=== PATIENT | female | born 1985 | race Caucasian/White ===

== ENCOUNTER 2025-03-12 06:14 | Day surgery (SDC) | payer OTHER, SELFPAY ==
--- NOTE | 2025-03-06 12:01 | PAT.ANE_ITS ---
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 When Was Last Pacemaker Check QUESTION #4 FULL TEXT: You/Your Family Experience fever (hyperthermia) with Anesthesia Last Oral Intake Last Oral intake: Last Oral Intake NPO since Meds taken in AM with sips of water? Meds patient instructed to take am of surgery PONV PONV - sidewalk repairer: PONV - sidewalk repairer Female Yes 03/05/25 15:11 HX of Motion Sickness No 03/05/25 15:11 HX of N/V After Surgery No 03/05/25 15:11 Non-Smoker Yes 03/05/25 15:11 Duration of Surgery greater No 03/05/25 15:11 than 60 minutes Number of Risk Factors 2 03/05/25 15:11 PONV Score Moderate Risk 03/05/25 15:11 Respiratory Assessment Respiratory Assessment - sidewalk repairer: Respiratory Tract Infection Hx - sidewalk repairer Hx Respiratory Tract Infection No 03/05/25 15:11 STOP Sleep Apnea STOP Sleep Apnea - sidewalk repairer: STOP Sleep Apnea - sidewalk repairer Hx Hypertension No 03/05/25 15:11 Hx Sleep Apnea No 03/05/25 15:11 CPAP BIPAP Do you snore loudly (louder No 03/05/25 15:11 than talking or can be heard Do you often feel tired/ No 03/05/25 15:11 fatigued/ sleepy during daytime? Has anyone observed you stop No 03/05/25 15:11 breathing during sleep? STOP Results Negative 03/05/25 15:11 QUESTION #5 FULL TEXT : Do you snore loudly (louder than talking or can be heard through closed doors)? Tobacco Use History Tobacco Use History - sidewalk repairer: Tobacco Use History - sidewalk repairer Tobacco Use Smoking Status Never smoker 03/05/25 15:11 Hx Tobacco Use No 03/05/25 15:11 Years Smoking Packs Smoked per Day Smoking Cessation Date was within the last 15 years Hx Smoking Cessation Date Hx Smoking Cessation Counseling Hematologic Medial History Hematologic Hx - sidewalk repairer: Hematologic Medical Hx - rn clinical documentation Hx of Blood Transfusion No 03/05/25 15:11 Hx of Transfusion in last 3 No 03/05/25 15:11 Months Date of Last Transfusion (if within last 3 months) Ever experience any problems No 03/05/25 15:11 with transfusion(s)? Specify any problems Hx of Preganancy in last 3 No 03/05/25 15:11 Months Nurse Filling Out Transfusion DSCHRIBER 03/05/25 15:11 & Questions: Date: 03/05/25 03/05/25 15:11 Time: 15:12 03/05/25 15:11 Patient unable to answer at this time (ie. confused, unrespo /Reproduction History /Reproductive History - sidewalk repairer: /Reproductive Hx- sidewalk repairer Hx Now No 03/05/25 15:11 Gestational Age (in weeks): EDC: Hx Hx Para Hx Section SAB No 03/05/25 15:11 PFSH Medical History (Updated 03/05/25 @ 15:17 by Molly Villagran) Wears contact lenses Back pain Migraine headache History of diverticulitis Non-smoker Cardiology follow-up encounter History of echocardiogram Home Medications Medication Instructions Recorded Last Taken Type multivitamin (Daily Multi-Vitamin 1 tab PO DAILY 03/05 Unknown History tablet) ubrogepant 100 mg tablet (Ubrelvy) 100 mg PO DAILY PRN PRN migraine 03/05/25 Unknown History headache Allergy/AdvReac Type Severity Reaction Status Date / Time cefuroxime (From Ceftin) Allergy Intermediate Vomiting Verified 03/05/25 15:08 Penicillins Allergy Intermediate Hives Verified 03/05/25 15:08 red dye AdvReac Intermediate Vomiting Verified 03/05/25 15:08 Surgical History (Updated 03/05/25 @ 15:17 by Molly Villagran) Hx of colonoscopy History of tonsillectomy History of Social History Smoking Status: Never smoker Recommendation Anesthesia Recommendation Anesthesia recommendation: OPTIMIZED for anesthesia
[2025-03-12] VITALS (9 sets, daily range): BP systolic 83–106; BP diastolic 54–67; PULSE 70–83; RESP 14–18; TEMP 36.1–36.7; O2SAT 93–100; BMI 33.1
--- OUTSIDE RECORDS SUMMARY | 2025-03-12 06:21 | XMS RPT_ITS | CCD ---
Author Organization [facility] Care Team Providers Care Cellophane Bath Mixer Name Role Phone Frantz Benson DO Primary Care Provider Deepika Denise MD Unavailable JERRI POSADA Attending Unavailable NO PRIMARY CAREMD Primary Care Unavailable REFERRED, SELF Referring Unavailable NO PRIMARY CARE, Primary Care Unavailable TRISTEN SHRESTHA Attending Unavailable REFERRED, SELF Referring Unavailable Frantz Benson DO Primary Care Provider Deepika Denise MD Unavailable Alejandro Denise MDico Unavailable [phone] NEDDJeannie ORTHODONTIST-TREMAINE EVANS Attending Unavaila ble FRANTZ BENSON DO Primary Care Unavailable FRANTZ BENSON DO Primary Care Unavailable MICHAEL SHER Attending Unavailable FRANTZ BENSON DO Primary Care Unavailable BENACHE MICHAEL Attending Unavailable Howie CASTANO [place] Unavailable Unavailable Howie CASTANO [place] Unavailable Frantz Benson DO Primary Care Provider Josef ORTHODONTIST.Fariba EVANS Unavailable Yaima SMITH.Anastasiya EVANS Unavailable FRANTZ BENSON DO Primary Care Physician OBIE JONES Attending Unavailable Josef ORTHODONTIST.Fariba EVANS Unavailable Marlyn ORTHODONTIST.Fermin EVANS Unavailable FRANTZ BENSON Primary Care Unavailable FRANTZ BENSON Primary Care Unavailable FARIDEH DE LA TORRE Referring Unavailable BENSON, FRANTZ L Primary Care Unavailable BENSON, FRANTZ L Primary Care Unavailable TANTIBHEDHYANGKUL, JULIERUT Referring Unav ailable BENSON, FRANTZ L Primary Care Unavailable TANTIBHEDHYANGKUL, JULIERUT Referring Unav ailable BENSON, FRANTZ L Primary Care Unavailable ATTARAN, MELINDA Referring Unavailable BENSON, FRANTZ L Primary Care Unavailable BENSON, FRANTZ L Primary Care Unavailable ATTARAN, MELINDA Referring Unavailable BENSON, FRANTZ L Primary Care Unavailable VENESSA QUEZADA MD Attending Unavailable BENSON DO, FRANTZ Primary Care Unavailable BENSON DO, FRANTZ Primary Care Unavailable MICHAEL SHER MD Attending Unavailab JOSE EDUARDO Stewart MD Attending Unavailable BENSON DO, FRANTZ Primary Care Unavailable Daniel Jefferson RN Unavailable Unavailable BENSON DO, FRANTZ Primary Care Unavailable MICHAEL SHER MD Attending Unavailab MICHAEL Graham MD Attending Unavailab le BENSON DO, FRANTZ Primary Care Unavailable CEDRICK LAURA Attending Unavailable Benson, Frantz Primary Care Unavailable Wiswell Aniya Referring Unavailable Wiswell, Aniya Attending Unavailable WISWELL, ANIYA Attending Unavailable BENSON, FRANTZ L Primary Care Unavailable TANTIBHEDHYANGKUL, JULIERUT Attending Unav ailable BENSON, FRANTZ L Primary Care Unavailable BENSON, FRANTZ L Primary Care Unavailable BENSON, FRANTZ L Attending Unavailable SELF Referring Unavailable TANTIBHEDHYANGKUL, JULIERUT Referring Unav ailable BENSON, FRANTZ L Primary Care Unavailable BENSON, FRANTZ L Primary Care Unavailable TANTIBHEDHYANGKUL, JULIERUT Referring Unav ailable BENSON, FRANTZ L Primary Care Unavailable BENSON, FRANTZ L Attending Unavailable BENSON, FRANTZ L Primary Care Unavailable ATTARAN, MELINDA Attending Unavailable TANTIBHEDHYANGKUL, JULIERUT Referring Unav ailable BENSON, FRANTZ L Primary Care Unavailable TANTIBHEDHYANGKUL, JULIERUT Referring Unav ailable BENSON, FRANTZ L Primary Care Unavailable ATTARAN, MELINDA Attending Unavailable DUNCAN GUADALUPE Attending Unavailable BENSON, FRANTZ L Primary Care Unavailable TANTIBHEDHYANGKUL, JULIERUT Referring Unav ailable BENSON, FRANTZ L Primary Care Unavailable DEVON OSMAN Attending Unavailable BENSON, FRANTZ L Primary Care Unavailable SELF Referring Unavailable BENSON, FRANTZ L Primary Care Unavailable BENSON, FRANTZ L Referring Unavailable MICHELLE MENSAH Attending Unavailable BENSON, FRANTZ L Primary Care Unavailable BENSON, FRANTZ L Referring Unavailable ALFREDO LONGO Attending Unavailable BENSON, FRANTZ L Attending Unavailable BENSON, FRANTZ L Primary Care Unavailable TANTIBHEDHYANGKUL, JULIERUT Referring Unav ailable BENSON, FRANTZ L Primary Care Unavailable BENSON, FRANTZ L Referring Unavailable BENSON, FRANTZ L Primary Care Unavailable BENSON, FRANTZ L Primary Care Unavailable FERMIN FIELD Attending Unavailable TANTIBHEDHYANGKUL, JULIERUT Referring Unav ailable MAREK NIXON Attending Unavailable BENSON, FRANTZ L Primary Care Unavailable CATARINA MANZO Attending Unavailable BENSON, FRANTZ L Primary Care Unavailable TANTIBHEDHYANGKUL, JULIERUT Referring Unav ailable BENSON, FRNATZ L Primary Care Unavailable BENSON, FRANTZ L Primary Care Unavailable MELINDA GUIDRY Attending Unavailable MELINDA GUIDRY Admitting Unavailable FARIDEH DE LA TORRE Referring Unavailable BENSON, FRANTZ L Primary Care Unavailable TANTIBHEDHYANGKUL, JULIERUT Referring Unav ailable BENSON, FRANTZ L Primary Care Unavailable TANTIBHEDHYANGKUL, JULIERUT Referring Unav ailable BENSON, FRANTZ L Primary Care Unavailable TANTIBHEDHYANGKUL, JULIERUT Attending Unav ailable BENSON, FRANTZ L Primary Care Unavailable BENSON, FRANTZ L Primary Care Unavailable BENSON, FRANTZ L Attending Unavailable TANTIBHEDHYANGKUL, JULIERUT Referring Unav ailable BENSON, FRANTZ L Primary Care Unavailable TANJA ABAD Attending Unavailable TANTIBHEDHYANGKUL, JULIERUT Referring Unav ailable BENSON, FRANTZ L Primary Care Unavailable Allergies Allergy Classification Reported Allergen(s) Allergy Type Date of Onset Reaction(s) Facility (20 sources) Acetaminophen / Dextromethorphan / Pseudoephedrine; Translations: [APAP/dextromethorphan /pseudoephedrine] Drug Allergy 03-30-20 21 Other: See [facility] (20 sources) Amoxicillin; Translations: [amoxicillin] Drug Allergy 12-19-19 15 Rash, Hives [facility] Work Phone: (20 sources) Cefuroxime; Translations: [CEFUROXIME AXETIL] Drug Allergy 12-19-19 15 GI Upset [facility] Work Phone: (20 sources) Chlorpheniramine / Phenylephrine / Phenylpropanolamine / phenyltoloxamine; Translations: [Chlorpheniramine / Phenylephrine / Phenylpropanolamine / phenyltoloxamine] Drug Allergy 03-30-20 Other: See Comments [facility] (20 sources) Contrast media; Translations: [RED DYE] Drug Allergy 03-30-20 Other: See Comments, [facility] (20 sources) Erythromycin; Translations: [ILOSONE] Drug Allergy 12-19-19 15 Rash [facility] Work Phone: (20 sources) Penicillin; Translations: [penicillin] Drug Allergy 12-19-19 15 Rash, [facility] Work Phone: (20 sources) Phenylephrine; Translations: [phenylephrine] Drug Allergy 03-30-20 Other: See Comments, Unknown [facility] (20 sources) Pseudoephedrine; Translations: [pseudoephedrine] Drug Allergy 03-30-20 Other: See Comments, Unknown [facility] (3 sources) Cefuroxime; Translations: [cefuroxime] Drug Allergy 12-19-19 15 [facility] Immediate [facility] (4 sources) Erythromycin; Translations: [erythromycin] Drug Allergy 12-19-19 15 [facility] (1 source) ALLERGIES NOT ON FILE; Translations: [ALLERGIES NOT ON FILE] Propensity to adverse reactions (disorder) [facility] Repository (2 sources) Chlorphen-Phenyltolox- Pe-Ppa; Translations: [CHLORPHEN-PHENYLTOLOX -PE-PPA] Drug Allergy 03-30-20 Unknown [facility] Work Phone: (1 source) Cefuroxime Drug Allergy 03-05-20 25 [facility] Repository (1 source) Penicillins Drug allergy (disorder) 03-05-20 25 [facility] Repository Medications Current Medications Medication Drug Class(es) Dates Sig (Normalized) Sig (Original) ALPRAZolam 0.25 mg oral tablet (2 sources) Benzodiazepine Start: 10-30-2023 End: 11-29-2023 take 1 tablet by mouth every twenty-four hours as needed for anxiety and anxiety ALPRAZolam (XANAX) 0.25 mg tablet Indications: Situational anxiety Take 1 tablet by mouth at bedtime as needed for up to 30 days. 30 tablet 1 10/30/2023 11/29/2023 Active cephalexin 500 mg oral capsule (1 source) Cephalosporin Antibacterial Start: 03-12-2023 End: 03-22-2023 take 1 capsule by mouth twice daily cephALEXin (KEFLEX) 500 mg capsule Indications: Sore throat , Exposure to strep throat Take 1 capsule by mouth two times a day for 10 days. 20 capsule 0 03/12/2023 03/22/2023 Active Comment on above: Take 1 capsule by [facility] two times a day for 10 days. chorionic gonadotropin 42266 unt/ml injectable solution (20 sources) Gonadotropin Start: 01-23-2025 inject 66872 [IU] by subcutaneous injection once chorionic gonadotropin (PREGNYL) 10,000 unit solr Inject 10,000 units once for HCG Trigger. Mix vials as directed per nursing in office. Administer subcutaneous. 1 each 01/23/2025 Active Start: 10-29-2024 inject [id number] [IU] by subcutaneous injection once chorionic gonadotropin (PREGNYL) 10,000 unit solr 10,000 Units as directed for 1 dose. Mix vials as directed per nursing in office. Administer subcutaneous. 1 each 1 10/29/2024 Active Start: 09-28-2023 End: 09-28-2023 Choriogonadotropin Nikos,HumR ec (OVIDREL) 250 mcg/0.5 mL syrg Inject 250 mcg subcutaneously one time only for 1 dose. 1 Each 2 09/28/2023 09/28/2023 Start: 08-06-2023 End: 08-06-2023 Choriogonadotropin Nikos,HumR ec (OVIDREL) 250 mcg/0.5 mL syrg Inject 250 mcg subcutaneously one time only for 1 dose. 1 Each 2 08/06/2023 08/06/2023 Comment on above: Inject 250 mcg subcu taneously one time only for 1 dose. ciprofloxacin 3 mg/ml ophthalmic solution (3 sources) Quinolone Antimicrobial Start: End: take 1-2 drop(s) into the eye(s) every two hours, then take 1-2 drop(s) into the eye(s) every four hours ciprofloxacin HCl (CILOXAN) 0.3 % ophthalmic solution Indications: Acute bacterial conjunctivitis of left eye Use 1-2 drops inside left lower eyelid(s) every 2 hours while awake for 2 days, then 1-2 drops every 4 hours for next 5 days. 5 mL 0 05/20/2022 05/27/2022 Active Comment on above: Use 1-2 drops inside left lower eyelid(s) every 2 hours while awake for 2 days, then 1-2 drops every 4 hours for next 5 days. doxycycline hyclate 100 mg oral capsule (5 sources) Tetracycline-class Drug Start: End: take 2 capsules by mouth once doxycycline hyclate (VIBRAMYCIN) 100 mg capsule Take 2 capsules by mouth one time only for 1 dose. Take between 8pm and 10pm the night before retrieval 2 capsule 11/23/2024 11/23/2024 Active Start: 03-30-2023 End: 04-06-2023 take 1 tablet by mouth twice daily doxycycline (VIBRA-TABS) 100 mg tablet Indications: Acute non-recurrent maxillary sinusitis Take 1 tablet by mouth two times a day for 7 days. 14 tablet 0 03/30/2023 04/06/2023 Start: 03-17-2022 End: 03-27-2022 take 1 tablet by mouth twice daily doxycycline monohydrate 100 mg tablet Indications: Bacterial sinusitis Take 1 tablet by mouth twice daily for 10 days. 20 tablet 0 03/17/2022 03/27/2022 Active Comment on above: Take 1 tablet by jeferson th twice daily for 10 days. Take 1 tablet by jeferson th two times a day for 7 days. 0.36 ml follitropin beta 833 unt/ml cartridge (12 sources) Start: 025 inject 250 [IU] by subcutaneous injection once daily Follitropin Beta (FOLLISTIM AQ) 300 unit/0.36 mL Indications: Female infertility Inject 250 Units subcutaneously once daily. 6 each 1 10/29/2024 Active 0.5 ml ganirelix acetate 0.5 mg/ml prefilled syringe (12 sources) Gonadotropin Releasing Hormone Antagonist Start: Ganirelix Acetate 250 mcg/0.5 mL Indications: Female infertility Inject 1 syringe daily subcutaneous before 8am. Inject same time each day 7 each 1 10/29/2024 Active leuprolide acetate 5 mg/ml injectable solution (13 sources) Gonadotropin Releasing Hormone Receptor Agonist Start: 025 leuprolide (Lupron) 1 mg/0.2 mL injection 11/14/2024 Active Start: 10-29-2024 inject 80 [IU] by souza bcutaneous injection once leuprolide (LUPRON) 1 mg/0.2 mL Indications: Female infertility Inject 80 units subcutaneous once as directed for Lupron trigger 1 kit 1 10/29/2024 Active nitrofurantoin, macrocrystals 25 mg / nitrofurantoin, monohydrate 75 mg oral capsule (2 sources) Nitrofuran Antibacterial Start: 05-01-2022 End: 05-06-2022 take 1 capsule by mouth twice daily nitrofurantoin monohydrate and macrocrystal (MACROBID) 100 mg capsule Take 1 capsule by mouth twice daily for 5 days. 10 capsule 0 05/01/2022 05/06/2022 Active Comment on above: Take 1 capsule by [facility] twice daily for 5 days. progesterone 200 mg oral capsule (6 sources) Progesterone Start: 01-23-2025 progesterone micronized (PROMETRIUM) 200 mg capsule Insert 200mg vaginally in AM and 200mg vaginally in PM 60 capsule 3 01/23/2025 Active sulfamethoxazole 800 mg / trimethoprim 160 mg oral tablet (2 sources) Dihydrofolate Reductase Inhibitor Antibacterial, Sulfonamide Antimicrobial Start: 07-19-2022 End: 07-22-2022 take 1 tablet by mouth twice daily sulfamethoxazole-tr imethoprim (BACTRIM DS) 800-160 mg per tablet Indications: Headache, unspecified headache type , Congestion of both ears , Recurrent sinusitis Take 1 tablet by mouth twice daily for 3 days. 6 tablet 0 07/19/2022 07/22/2022 Active Start: 05-24-2022 End: 06-03-2022 take 1 tablet by mouth twice daily sulfamethoxazole-trimethoprim (BACTRIM D S) 800-160 mg per tablet Take 1 tablet by mouth twice daily for 10 days. 20 tablet 0 05/24/2022 06/03/2022 Active Comment on above: Take 1 tablet by jeferson th twice daily for 10 days. Take 1 tablet by jeferson th twice daily for 3 days. Imitrex (1 source) Serotonin-1b and Serotonin-1d Receptor Agonist Start: 03-21-2021 Imitrex Once, PRN Headache, 0 Refill(s) Start Date: 03/21/21 Status: Ordered Repeat number: 1 Syringe with Needle, Disp, (BD LUER-AGUSTIN SYRINGE) (6 sources) Start: 01-23-2025 Syringe with Needle, Disp, (BD LUER-AGUSTIN SYRINGE) To be used to draw up HCG trigger 1 each 3 01/23/2025 Active topiramate 25 mg oral tablet (9 sources) Start: 01-20-2025 take 32-32.9 tablets by mouth twice daily topiramate (TOPAMAX) 25 mg tablet Indications: Class 1 obesity with body mass index (BMI) of 32.0 to 32.9 in adult, unspecified obesity type, unspecified whether serious comorbidity present Take 1 tablet by mouth two times a day. 60 tablet 5 01/20/2025 Active ubrogepant 100 mg oral tablet (20 sources) Start: 04-24-2023 End: 06-30-2024 take 1 tablet by mouth every two hours as needed ubrogepant (UBRELVY) 100 mg tablet Take 1 tablet by mouth as needed at onset of migraine. May repeat dose at 2 hours if needed. Max 200 mg per 24 hours. 16 tablet 5 01/16/2025 8:04 AM EDT 06/30/2024 Active Start: 06-01-2021 End: 04-05-2023 ubrogepant (UBRELVY) 100 mg tablet Take 1 tab as needed at onset of migraine. May repeat dose at 2 hours if needed. Max 200 mg per 24 hours. 10 tablet 5 02/21/2023 04/05/2023 Discontinued Comment on above: Take 1 tab as needed at onset of migraine. May repeat dose at 2 hours if needed. Max 200 mg per 24 hours. Completed/Discontinued Medications Medication Drug Class(es) Dates Sig (Normalized) Sig (Original) acetaminophen 300 mg / butalbital 50 mg / caffeine 40 mg oral capsule (1 source) Barbiturate, Central Nervous System Stimulant, Methylxanthine Start: 04-11-2021 End: 06-01-2021 take 1 capsule by mouth every six hours as needed acetaminophen 300 mg-caffeine 40 mg-butalbital 50 mg (FIORICET) per capsule Take 1 capsule by mouth every 6 hours as needed for headache. 30 capsule 1 04/11/2021 06/01/2021 Discontinued Comment on above: Take 1 capsule by mo uth every 6 hours as needed for headache. azithromycin 250 mg oral tablet (6 sources) Macrolide Antimicrobial Start: 08-15-2023 End: 08-20-2023 azithromycin (ZITHROMAX Z-BO) 250 mg tablet Indications: Acute non-recurrent pansinusitis Take 2 tablets day one, then, 1 tablet daily until gone. 6 tablet 0 08/15/2023 08/20/2023 Start: 06-30-2022 End: 07-05-2022 azithromycin (ZITHROMAX Z-PA K) 250 mg tablet Indications: Sore throat Take 2 tablets day one, then, 1 tablet daily until gone. 6 tablet 0 06/30/2022 07/05/2022 Active Start: 05-20-2022 End: 05-25-2022 take 2 tablets by mouth once daily, then take 1 tablet by mouth once daily azithromycin (ZITHROMAX) 250 mg tablet Indications: Acute otitis media, left Take 2 tablets by mouth once daily for 1 day, THEN 1 tablet once daily for 4 days. 6 tablet 0 05/20/2022 05/25/2022 Active Start: 05-05-2022 End: 05-10-2022 azithromycin (ZITHROMAX Z-PA K) 250 mg tablet Take 2 tablets day one, then, 1 tablet daily until gone. 6 tablet 0 05/05/2022 05/10/2022 Active Comment on above: Take 2 tablets day o ne, then, 1 tablet daily until gone. Take 2 tablets by mo uth once daily for 1 day, THEN 1 tablet once daily for 4 days. escitalopram 5 mg oral tablet (7 sources) Serotonin Reuptake Inhibitor Start: 2023 End: 2023 take 1 tablet by mouth once daily escitalopram oxalate (LEXAPRO) 5 mg tablet Indications: Situational anxiety Take 1 tablet by mouth once daily. 30 tablet 2 10/30/2023 03/15/2024 Discontinued fluticasone propionate 0.05 mg/actuat metered dose nasal spray (2 sources) Corticosteroid Start: 2021 End: 2022 take 2 spray(s) by mouth once daily fluticasone (FLONASE) 50 mcg/actuation nasal spray Indications: Headache, unspecified headache type , Congestion of both ears Use 2 Sprays in each nostril once daily. Rinse mouth after use. 16 g 0 05/03/2022 05/20/2022 Discontinued (Course of therapy completed) Comment on above: Use 2 Sprays in each nostril once daily. Rinse mouth after use. iv contrast (will be provided with radiology test) (2 sources) Start: 2022 End: 2022 inject 1 dose intravenously once, then inject 1 dose intravenously once iv contrast (will be provided with radiology test) Inject 1 Each intravenously one time only for [address] Neck W IVCON No IV access, insert saline lock prior to the sedation, infusion, injection for imaging exam. Discontinue saline lock post exam. If Pt. has a central line or IVAD, may access for administration according to line specific nursing protocol. Once exam is complete flush line and de-access according to line specific nursing protocol in the CT contrast administration guidelines link. 1 Each 0 04/06/2023 04/06/2023 Start: 04-06-2023 End: 04-06-2023 inject 1 dose intravenously once, then inject 1 dose intravenously once iv contrast (will be provided with radiology test) Inject 1 Each intravenously one time only for [address] Neck W IVCON No IV access, insert saline lock prior to the sedation, infusion, injection for imaging exam. Discontinue saline lock post exam. If Pt. has a central line or IVAD, may access for administration according to line specific nursing protocol. Once exam is complete flush line and de-access according to line specific nursing protocol in the CT contrast administration guidelines link. 1 Each 0 04/06/2023 04/06/2023 Active Comment on above: Inject 1 Each intrav enously one time only for [address] Neck W IVCON No IV access, insert saline lock prior to the sedation, infusion, injection for imaging exam. Discontinue saline lock post exam. If Pt. has a central line or IVAD, may access for administration according to line specific nursing protocol. Once exam is complete flush line and de-access according to line specific nursing protocol in the CT contrast administration guidelines link. letrozole 2.5 mg oral tablet (20 sources) Aromatase Inhibitor Start: End: letrozole (FEMARA) 2.5 mg tablet Take 1 tablet by mouth once daily. on cycle days 3-7 15 tablet 09/28/2023 09/03/2024 Discontinued Comment on above: Take 1 tablet by jeferson once daily. on cycle days 3-7 meloxicam 15 mg oral tablet (2 sources) Nonsteroidal Anti-inflammatory Drug Start: End: take 1 tablet by mouth once daily for pain meloxicam (MOBIC) 15 mg tablet Indications: Chronic midline low back pain without sciatica Take 1 tablet by mouth once daily. For low back pain, With food. 30 tablet 0 07/11/2021 08/10/2021 Discontinued Comment on above: Take 1 tablet by jeferson once daily. For low back pain, With food. metFORMIN hydrochloride 500 mg oral tablet (19 sources) Biguanide Start: End: take 1 tablet by mouth once daily at dinner metFORMIN (GLUCOPHAGE) 500 mg tablet Take 1 tablet by mouth daily with dinner. 90 tablet 1 09/09/2024 11/18/2024 Discontinued naproxen 500 mg oral tablet (20 sources) Nonsteroidal Anti-inflammatory Drug Start: End: naproxen (NAPROSYN) 500 mg tablet Take 1 tablet two times per day (with meals) for 5-7 days for menstrual migraine. 20 tablet 5 02/21/2023 03/15/2024 Discontinued Comment on above: Take 1 tablet two ti mes per day (with meals) for 5-7 days for menstrual migraine. ondansetron 4 mg disintegrating oral tablet (3 sources) Serotonin-3 Receptor Antagonist Start: End: take 1 tablet by mouth every eight hours as needed ondansetron orally disintegrating (ZOFRAN ODT) 4 mg disintegrating tablet Take 1 tablet by mouth every 8 hours as needed for nausea/vomiting. 20 tablet 0 06/15/2021 08/10/2021 Discontinued Comment on above: Take 1 tablet by jeferson every 8 hours as needed for nausea/vomiting. perflutren lipid microspheres 1.3 mL in NaCl (PF) 0.9% 10 mL injection (DEFINITY) (1 source) Start: End: perflutren lipid microspheres 1.3 mL in NaCl (PF) 0.9% 10 mL injection (DEFINITY) phentermine hydrochloride 37.5 mg oral capsule (9 sources) Sympathomimetic Amine Anorectic Start: End: take 33-33.9 capsules by mouth once daily Phentermine HCl 37.5 mg capsule Indications: Class 1 obesity without serious comorbidity with body mass index (BMI) of 33.0 to 33.9 in adult, unspecified obesity type Take 1 capsule by mouth once daily for 90 days. 30 capsule 2 10/17/2024 11/18/2024 Discontinued PNV Combo No.47-Iron-FA #1-DHA (PNV-DHA) 27 mg iron-1 mg -300 mg (4 sources) Start: take 1 capsule by mouth once daily PNV Combo No.47-Iron-FA #1-DHA (PNV-DHA) 27 mg iron-1 mg -300 mg Take 1 capsule by mouth once daily. 0 03/09/2023 Active Comment on above: Take 1 capsule by mo [facility] once daily. predniSONE 20 mg oral tablet (1 source) Start: End: take 1 tablet by mouth once daily as needed for headache predniSONE (DELTASONE) 20 mg tablet Take 1 tablet by mouth once daily. As needed for migraine headache 20 tablet 1 05/11/2021 06/01/2021 Discontinued Comment on above: Take 1 tablet by jeferson once daily. As needed for migraine headache rimegepant 75 mg disintegrating oral tablet (6 sources) Start: End: take 1 tablet by mouth every twenty-four hours rimegepant (NURTEC ODT) 75 mg disintegrating tablet Take 1 dissolvable tablet by mouth at migraine onset. Take only 1 tablet per 24 hours. 8 tablet 5 04/05/2023 04/24/2023 Discontinued Comment on above: Take 1 dissolvable t ablet by mouth at migraine onset. Take only 1 tablet per 24 hours. 125 ml sodium chloride 9 mg/ml prefilled syringe (1 source) Start: End: sodium chloride 0.9 % (flush) 10 mL (BD POSIFLUSH) sodium fluoride 0.011 mg/mg toothpaste (20 sources) Start: End: Sodium Fluoride (PREVIDENT 5000 ORTHO DEFENSE) 1.1 % 1 Application by DENTAL route once daily. Dx: dental caries 112 g 4 07/21/2023 03/15/2024 Discontinued Comment on above: 1 Application by DEN AISHA route once daily. Dx: dental caries Problems Active Problems Problem Classification Problem Date Documented Date Episodic/Chronic Administrative/soci al admission (2 sources) Treatment plan given; Translations: [Counseling, unspecified] 07-17-2023 Episodic Allergic reactions (1 source) Allergy to penicillin; Translations: [Allergy status to penicillin] Episodic Anxiety disorders (20 sources) Anxiety; Translations: [Other specified anxiety disorders] Onset: 4 Resolved: 5 10-30-2023 Chronic Coagulation and hemorrhagic disorders (20 sources) Heterozygous Factor V Leiden mutation; Translations: [Activated protein C resistance] Onset: 5 12-04-2016 Chronic Complications of surgical procedures or medical care (1 source) Non dose-related adverse reaction to medication; Translations: [Unspecified adverse effect of drug or medicament, initial encounter] 08-01-2023 Episodic Disorders of lipid metabolism (20 sources) Mixed hypercholesterolemia and hypertriglyceridemia; Translations: [Mixed hyperlipidemia] Onset: 6 12-04-2016 Chronic Disorders of teeth and jaw (1 source) Dental caries; Translations: [Dental caries, unspecified] 07-21-2023 Episodic Female infertility (18 sources) Female infertility; Translations: [Female infertility, unspecified] Onset: 5 08-20-2023 Chronic Fluid and electrolyte disorders (1 source) Hypokalemia; Translations: [Hypokalemia] Episodic Genitourinary symptoms and ill-defined conditions (1 source) Increased frequency of urination; Translations: [Frequency of micturition] Episodic Headache; including migraine (20 sources) Refractory migraine; Translations: [Migraine, unspecified, intractable, without status migrainosus] Onset: 6 05-10-2016 Chronic Headache; including migraine (13 sources) Headache; Translations: [Headache, unspecified headache type] Onset: 5 Episodic Headache; including migraine (1 source) Headache; including migraine; Translations: [Chronic nonintractable headache, unspecified headache type] Onset: 5 Immunizations and screening for infectious disease (4 sources) Needs influenza immunization; Translations: [Encounter for immunization] Onset: 5 Episodic Inflammation; infection of eye (except that caused by tuberculosis or sexually transmitteddisease) (1 source) Acute infectious conjunctivitis; Translations: [Unspecified acute conjunctivitis, left eye] Episodic Lymphadenitis (2 sources) Localized enlarged lymph nodes; Translations: [Localized enlarged lymph nodes] 04-06-2023 Episodic Menstrual disorders (2 sources) Irregular periods; Translations: [Irregular menstruation, unspecified] 03-09-2023 Chronic Mood disorders (20 sources) Premenstrual dysphoric disorder; Translations: [Premenstrual dysphoric disorder] Onset: 2 Chronic Other connective tissue disease (1 source) Cramp and spasm; Translations: [Leg cramping] Onset: 5 Episodic Other connective tissue disease (1 source) Pain in left leg; Translations: [Pain of left lower extremity] Onset: 5 Episodic Other connective tissue disease (1 source) Pain in unspecified lower leg; Translations: [Pain in unspecified lower leg] Onset: 5 Episodic Other ear and sense organ disorders (1 source) Sensation of blocked ear; Translations: [Other specified disorders of ear, bilateral] Episodic Other female genital disorders (2 sources) Polyp of corpus uteri; Translations: [Endometrial polyp] Onset: 5 Episodic Other nervous system disorders (1 source) Other chronic pain; Translations: [Chronic nonintractable headache, unspecified headache type] Onset: 5 Chronic Other nervous system disorders (1 source) Paresthesia of right lower limb; Translations: [Paresthesia of skin] Episodic Other nutritional; endocrine; and metabolic disorders (1 source) Hypocalcemia; Translations: [Hypocalcemia] Chronic Other nutritional; endocrine; and metabolic disorders (20 sources) Obesity; Translations: [Obesity, unspecified] Onset: 4 07-21-2023 Chronic Other nutritional; endocrine; and metabolic disorders (2 sources) Body mass index (BMI) 33.0-33.9, adult; Translations: [Class 1 obesity with body mass index (BMI) of 33.0 to 33.9 in adult, unspecified obesity type, unspecified whether serious comorbidity present] Onset: 5 Chronic Other nutritional; endocrine; and metabolic disorders (1 source) Body mass index (BMI) 32.0-32.9, adult; Translations: [Class 1 obesity with body mass index (BMI) of 32.0 to 32.9 in adult, unspecified obesity type, unspecified whether serious comorbidity present] Onset: 4 Chronic Other upper respiratory infections (2 sources) Bacterial sinusitis; Translations: [Chronic sinusitis, unspecified] Chronic Other upper respiratory infections (3 sources) Sore throat symptom; Translations: [Acute pharyngitis, unspecified] Episodic Otitis media and related conditions (1 source) Acute left otitis media; Translations: [Otitis media, unspecified, left ear] Episodic Ovarian cyst (2 sources) Complex cyst of left ovary; Translations: [Other ovarian cyst, left side] Episodic Residual codes; unclassified (1 source) H/O: miscarriage; Translations: [Personal history of other complications of , childbirth and the puerperium] 03-09-2023 Episodic Residual codes; unclassified (4 sources) Family history of genetic disorder carrier; Translations: [Family history of carrier of genetic disease] 08-15-2024 Episodic Residual codes; unclassified (2 sources) FH: Chromosomal anomaly; Translations: [Family history of other congenital malformations, deformations and chromosomal abnormalities] 09-15-2024 Episodic Residual codes; unclassified (1 source) Family history of autism; Translations: [Family history of other mental and behavioral disorders] 08-25-2024 Episodic Residual codes; unclassified (20 sources) Genetic disorder carrier; Translations: [Genetic carrier of other disease] 09-15-2024 Episodic Residual codes; unclassified (1 source) Family history of leukemia; Translations: [Family history of acute myeloid leukemia] Onset: 5 Episodic Unclassified (1 source) Class 1 obesity with body mass index (BMI) of 33.0 to 33.9 in adult, unspecified obesity type, unspecified whether serious comorbidity present; Translations: [Class 1 obesity with body mass index (BMI) of 33.0 to 33.9 in adult, unspecified obesity type, unspecified whether serious comorbidity present] Onset: 5 Unclassified (1 source) Class 1 obesity with body mass index (BMI) of 32.0 to 32.9 in adult, unspecified obesity type, unspecified whether serious comorbidity present; Translations: [Class 1 obesity with body mass index (BMI) of 32.0 to 32.9 in adult, unspecified obesity type, unspecified whether serious comorbidity present] Onset: 4 Unclassified (1 source) Infertility Onset: 5 Unclassified (1 source) Class 1 obesity without serious comorbidity with body mass index (BMI) of 33.0 to 33.9 in adult, unspecified obesity type; Translations: [Class 1 obesity without serious comorbidity with body mass index (BMI) of 33.0 to 33.9 in adult, unspecified obesity type] Onset: 5 Past or Other Problems Problem Classification Problem Date Documented Date Episodic/Chronic Cardiac dysrhythmias (20 sources) Palpitations; Translations: [Palpitations] Onset: 04-02-2021 Resolved: 11-18-2024 04-02-2021 Episodic Contraceptive and procreative management (20 sources) Patient encounter status; Translations: [Encounter for other general counseling and advice on procreation] Onset: 08-27-2024 03-09-2023 Episodic Nonspecific chest pain (20 sources) Chest pain; Translations: [Chest pain, unspecified] Onset: 04-02-2021 Resolved: 11-18-2024 04-02-2021 Episodic Other screening for suspected conditions (not mental disorders or infectious disease) (7 sources) Evaluation finding; Translations: [Encounter for test, result negative] Onset: 01-30-2023 03-27-2023 Episodic Residual codes; unclassified (1 source) Family history of other mental and behavioral disorders; Translations: [Family history of autism] Onset: 08-27-2024 Episodic Residual codes; unclassified (1 source) Genetic carrier of other disease; Translations: [Genetic carrier of other disease] Onset: 09-15-2024 Episodic Residual codes; unclassified (1 source) Family history of carrier of genetic disease; Translations: [Family history of carrier of genetic disease] Onset: 08-25-2024 Episodic Screening and history of mental health and substance abuse codes (1 source) Encounter for screening examination for other mental health and behavioral disorders; Translations: [Encounter for screening examination for other mental health and behavioral disorders] Onset: 03-15-2024 Episodic Spondylosis; intervertebral disc disorders; other back problems (20 sources) Lumbar discogenic pain; Translations: [Other intervertebral disc displacement, lumbar region] Onset: 08-19-2021 Resolved: 11-18-2024 Chronic Spondylosis; intervertebral disc disorders; other back problems (20 sources) Lumbosacral radiculopathy; Translations: [Radiculopathy, lumbosacral region] Onset: 08-19-2021 Resolved: 11-18-2024 Episodic Spontaneous (20 sources) Miscarriage; Translations: [Complete or unspecified spontaneous without complication] Onset: 02-05-2023 12-25-2022 Episodic Unclassified (3 sources) Patient encounter status 09-03-2024 Unclassified (1 source) Onset: 02-12-2025 02-12-2025 Results Test Name Value Interpretation Reference Range Facility CNTHERAPY 03-10-2025 CNTHERAPY OT/PT/Speech Visit ( PTWS) DEBRA MARCH ([id number]) 1985 F Date Time Provider Department 03/10/25 10:00 AM ALFREDO LONGO Date Time Provider Department Center 03/10/2025 10:00 AM [id number], SEAN PTSONIA Wade Warren Reason for Visit: PT Eval [[id number]] Primary Visit Diagnosis:Intractable migraine without status migrainosus, unspecified migraine type [G43.919] Other Visit Diagnosis:Chronic nonintractable headache, unspecified headache type [R51.9, G89.29] Allergies As of Date: 03/10/2025 Noted Allergy Reaction ERYTHROMYCIN 12/18/2014 4 - Hives [id number] 03/30/2021 14 - Other: See Comments Comments: hallucinations AMOXICILLIN 12/18/2014 2 - Rash CEFTIN (CEFUROXIME AXETIL) 12/18/2014 8 - GI Upset Comments: Vomiting and diarrhea ILOSONE 12/18/2014 2 - Rash PENICILLIN 12/18/2014 2 - Rash PHENYLEPHRINE 03/30/2021 14 - Other: See Comments Comments: hallucinations PSEUDOEPHEDRINE 03/30/2021 14 - Other: See Comments Comments: hallucinations RED DYE 03/30/2021 14 - Other: See Comments Comments: hallucinations NALDECON 03/30/2021 14 - Other: See Comments Date Reviewed: 02/23/2025 Reviewed by: Jasmyn Durant MA - Fully Assessed Prescriptions as of 03/10/2025 - ubrogepant (UBRELVY) 100 mg tablet Take 1 tablet by mouth as needed at onset of migraine. May repeat dose at 2 hours if needed. Max 200 mg per 24 hours. - chorionic gonadotropin (PREGNYL) 10,000 unit solr Inject 10,000 units once for HCG Trigger. Mix vials as directed per nursing in office. Administer subcutaneous. - Needle, Disp, 27 G (BD DISPOSABLE NEEDLES) 27 gauge x 1/2" ndle To be used to inject HCG trigger - Syringe with Needle, Disp, (BD LUER-AGUSTIN SYRINGE) To be used to draw up HCG trigger - progesterone micronized (PROMETRIUM) 200 mg capsule Insert 200mg vaginally in AM and 200mg vaginally in PM Normal [facility] MR/Sd 03-06-2025 MR/DA[facility] Medical Records Department [address] [place] [address] PAT - Anesthesia 03/06/25 1201 MR#: [id number] Acct: [id number] Name: DEBRA MARCH Rep #: [id number] : 1985 39 From: Sanchez Reddy MD PCP: Status:PRE SDC Y Race: Location: [facility] [place] Pre-Assessment Diagnosis/Proposed Procedure Planned Operative Procedure(s): HYSTEROSCOPY POLYPECTOMY Anesthesia History Anesthesia History - picu nurse: Anesthesia History - picu nurse Hx Hospitalization No 03/05/25 15:11 Any Problems With Anesthesia No 03/05/25 15:11 Cholinesterase deficiency No 03/05/25 15:11 You/Your Family Experience No 03/05/25 15:11 fever (hyperthermia) with Relationship Recent Exposure to Contagious Disease Does patient have nerve No 03/05/25 15:11 stimulator Patient instructed to have device shut off --Does patient have Pacemaker or ICD? When Was Last Pacemaker Check QUESTION #4 FULL TEXT: You/Your Family Experience fever (hyperthermia) with Anesthesia Last Oral Intake Last Oral intake: Last Oral Intake NPO since Meds taken in AM with sips of water? Meds patient instructed to take am of surgery PONV PONV - picu nurse: PONV - picu nurse Female Yes 03/05/25 15:11 HX of Motion Sickness No 03/05/25 15:11 HX of N/V After Surgery No 03/05/25 15:11 Non-Smoker Yes 03/05/25 15:11 Duration of Surgery greater No 03/05/25 15:11 than 60 minutes Number of Risk Factors 2 03/05/25 15:11 PONV Score Moderate Risk 03/05/25 15:11 Respiratory Assessment Respiratory Assessment - picu nurse: Respiratory Tract Infection Hx - picu nurse Hx Respiratory Tract Infection No 03/05/25 15:11 STOP Sleep Apnea STOP Sleep Apnea - picu nurse: STOP Sleep Apnea - picu nurse Hx Hypertension No 03/05/25 15:11 Hx Sleep Apnea No 03/05/25 15:11 CPAP BIPAP Do you snore loudly (louder No 03/05/25 15:11 than talking or can be heard Do you often feel tired/ No 03/05/25 15:11 fatigued/ sleepy during daytime? Has anyone observed you stop No 03/05/25 15:11 breathing during sleep? STOP Results Negative 03/05/25 15:11 QUESTION #5 FULL TEXT : Do you snore loudly (louder than talking or can be heard through closed doors)? 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 Specify any problems Hx of Preganancy in last 3 No 03/05/25 15:11 Months Nurse Filling Out Transfusion DSCHRIBER 03/05/25 15:11 Questions: Date: 03/05/25 03/05/25 15:11 Time: 15:12 03/05/25 15:11 Patient unable to answer at this time (ie. confused, unrespo /Reproduction History /Reproductive History - picu nurse: /Reproductive Hx- picu nurse Hx Now No 03/05/25 15:11 Gestational Age (in weeks): EDC: Hx Hx Para Hx Section SAB No 03/05/25 15:11 PFSH Medical History (Updated 03/05/25 @ 15:17 by Molly Villagran) Wears contact lenses Back pain Migraine headache History of diverticulitis Non-smoker Cardiology follow-up encounter History of echocardiogram Home Medications ???Medication ???Instructions ???Recorded ???Last Taken ???Type multivitamin (Daily Multi-Vitamin 1 tab PO DAILY 03/05/25 Unknown H istory tablet) ubrogepant 100 mg tablet (Ubrelvy) 100 mg PO DAILY PRN PRN migraine 03/05/25 Unknown History headache Allergy/AdvReac Type Severity Reaction Status Date / Time cefuroxime (From Ceftin) Allergy Intermediate Vomiting Verified 03/05/25 15:08 Penicillins Allergy Intermediate Hives Verified 03/05/25 15:08 red dye AdvReac Intermediate Vomiting Verified 03/05/25 15:08 Surgical History (Updated 03/05/25 @ 15:17 by Molly Villagran) Hx of colonoscopy History of tonsillectomy History of Social History Smoking Status: Never smoker Recommendation Anesthesia Recommendation Anesthesia recommendation: OPTIMIZED for anesthesia 03/06/25 1202 Date (more content not included)... Normal [facility] CNOVon 02-23-2025 CNOV Office Visit (OBGYWM ) BOKALANI KNAPPICA López ([id number]) 1985 F Date Time Provider Department 02/23/25 9:30 AM MICHELLE MENSAH OBGYWM During your visit today, we recorded the following information about you: Blood pressure Weight 112/60 81.6 kg Michelle Mensah MD 02/23/2025 9:52 AM Signed Debra López March is a 39 year old female who presents for problem visit to purse hysteroscopic resection of a known endometrial poly as prerequisite and in preparation for IVF.. Note hx of three CSs HPI: Transvaginal, 3D ultrasound examination, Color Doppler examination, Saline Infusion Sonohysterogram Uterus Uterus: Visualized Uterus position: retroverted Description of uterine malformations: none Myometrium: heterogeneous Endometrium: polyp noted Cervix details: normal Uterus length 86 mm Uterus width 56 mm Uterus height 47 mm Uterus Vol 118.0 cm? Endometrial thickness single layer 2.7 mm Endom. th. 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 History Comments: Sexual Activity: Yes; Male Contraception: No contraception data on record 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 may sometimes experience a short period of breathing paralysis following anesthesia (such as succinylcholine or mivacurium) Factor 5 Leiden mutation, heterozygous (HCC) Genetic disorder (HCC) Lumbosacral radiculopathy at L5 08/19/2021 PAST SURGICAL HISTORY Procedure Laterality Date DELIVERY ONLY , low transverse x 3 11/02/15,01/09/19, 11/25/20 TONSILLECTOMY PRIMARY/SECONDARY Tonsillectomy FAMILY HISTORY Problem Relation Age of Onset Cancer Mother 55 multiple myeloma Hyperlipidemia Father Diabetes Father borderline Hyperlipidemia Brother Breast Cancer Maternal Grandmother Diabetes Maternal Grandmother Heart Maternal Grandmother Heart Maternal Grandfather Cancer Paternal Grandmother Brain Heart Paternal Grandfather Heart Attack Paternal Grandfather No Known Problems Daughter Ovarian cancer No Family History SOCIAL HISTORY[1] Current Outpatient Medications Medication Sig ubrogepant (UBRELVY) 100 mg tablet Take 1 tablet by mouth as needed at onset of migraine. May repeat dose at 2 hours if needed. Max 200 mg per 24 hours. chorionic gonadotropin (PREGNYL) 10,000 unit solr Inject 10,000 units once for HCG Trigger. Mix vials as directed per nursing in office. Administer subcutaneous. Needle, Disp, 27 G (BD DISPOSABLE NEEDLES) 27 gauge x 1/2" ndle To be used to inject HCG trigger Syringe with Needle, Disp, (BD LUER-AGUSTIN SYRINGE) To be used to draw up HCG trigger progesterone micronized (PROMETRIUM) 200 mg capsule Insert 200mg vaginally in AM and 200mg vaginally in PM No current facility-administered medications for this visit. Allergies As of Date: 02/23/2025 Allergen Noted Reaction AMOXICILLIN 12/18/2014 Rash CEFTIN [CEFUROXIME AXETIL] 12/18/2014 GI Upset ILOSONE 12/18/2014 Rash NALDECON 03/30/2021 Other: See Comments PENICILLIN 12/18/2014 Rash PHENYLEPHRINE 03/30/2021 Other: See Comments [id number] 03/30/2021 Other: See Comments PSEUDOEPHEDRINE 03/30/2021 Other: See Comments RED DYE 03/30/2021 Other: See Comments Fully Assessed 02/18/2025 REVIEW OF SYSTEMS Abdomen: No bloating, early satiety, indigestion, or increased flatulence. No abdominal pain, nausea, vomiting, diarrhea, or constipation. Bladder: No dysuria, gross hematuria, urinary frequency, urinary urgency, or incontinence. Breast: No breast lumps, nipple d/c, overlying skin changes, redness or skin retraction. Expanded ROS: N/A Allergies and current medication updated:Yes SENSITIVE EXAM: Sensitive exam not performed. EXAM: LMP 02/05/2025 GENERAL: pleasant, female in no apparent distress ASSESSMENT AND PLAN: Assessment AND Plan Endometrial polyp needs hysteroscopic resection rec. between 6-11 Female infertility, secondary pursuing IVF pending removal of polyp ftft>30m Michelle Mensah MD [1] Social History Tobacco Use Smoking status: Never Smokeless tobacco: Never Vaping Use Vaping status: Never Used Substance Use Topics Alcohol use: Not Currently Drug use: No Referring Provider: FRANTZ BENSON [[id number]] Allergies As of Date: 02/23/2025 Noted Allergy Reaction AMOXICILLIN 12/18/2014 2 - Rash CEFTIN (CEFUROXIME AXETIL) 07 (more content not included)... Normal [facility] CNOVon 02-18-2025 CNOV Office Visit (FAMPWS ) DEBRA MARCH ([id number]) 1985 F Date Time Provider Department 02/18/25 4:20 PM FRANTZ BENSON FAMPWS During your visit today, we recorded the following information about you: Temperature Pulse Respiration Blood pressure 97.4 degrees 80/minute 16/minute 110/70 Weight Last Period 82.6 kg 02/05/25 Frantz Benson, DO 02/18/2025 2:05 PM Addendum Frantz Gay Dr[address] Dr., 02/18/2025 4:32 PM Signed CC: Debra March is a 39 year old female who presents to the office for followup HPI: Diagnosed with a polyp uterine, states needs a referral for surgical removal. She is considering implanting one of her embryos with IVF upcoming and needs this done prior. Asymptomatic Obesity, weight at 182 lbs, tried to take the Topamax, feels it is causing her hyperactivity and she hasn't noticed any success with improvement in her appetite or weight loss. Her weight is stable when compared to prior office visit. 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 May repeat dose at 2 hours if needed. Max 200 mg per 24 hours. chorionic gonadotropin (PREGNYL) 10,000 unit solr Inject 10,000 units once for HCG Trigger. Mix vials as directed per nursing in office. Administer subcutaneous. Needle, Disp, 27 G (BD DISPOSABLE NEEDLES) 27 gauge x 1/2" ndle To be used to inject HCG trigger Syringe with Needle, Disp, (BD LUER-AGUSTIN SYRINGE) To be used to draw up HCG trigger progesterone micronized (PROMETRIUM) 200 mg capsule Insert 200mg vaginally in AM and 200mg vaginally in PM No current facility-administered medications for this visit. ALLERGIES Allergen Reactions Amoxicillin Rash Ceftin [Cefuroxime * GI Upset Vomiting and diarrhea Ilosone Rash Naldecon Other: See Comments Penicillin Rash Phenylephrine Other: See Comments hallucinations [id number]* Other: See Comments hallucinations Pseudoephedrine Other: See Comments hallucinations Red Dye Other: See Comments hallucinations SOCIAL HISTORY[1] ROS: See HPI PE: BP 110/70 Pulse 80 Temp (Src) 97.4 (Left Tympanic) Resp 16 Wt 182 lb (82.6kg) LMP 02/05/2025 Gen: AANDOX3, NAD, non-toxic appearing HEENT: PERRLA, EOMs intact b/l, nares without drainage, pharynx without erythema, exudate, lesions, or drainage. Uvula midline. Neck: No LAD, no thyromegaly, no meningismus. CV: RRR, no murmur Lungs: CTA b/l, no wheezing Skin: No rashes, lesions, or wounds on exposed skin. ASSESSMENT/PLAN: 1. Uterine polyp - ICD9: 621.0, ICD10: N84.0 (primary diagnosis) Referral to [facility] for opinion for removal 2. Class 1 obesity with body mass index (BMI) of 33.0 to 33.9 in adult, unspecified obesity type, unspecified whether serious comorbidity present - ICD9: 278.00, V85.33, ICD10: E66.811, Z68.33 Stable - Behavioral intervention, - PSMF, and - Eat well program Stop topamax due to SE and no improvement in her symptoms Frantz Benson DO Return if no improvement. Follow up with Frantz Benson DO. To ER if develops chest pain, shortness of breath. Discussed risks, benefits, alternatives, and potential side effects of medications. Patient/Guardian expressed understanding and agreed with the plan. See patient instructions. Frantz Benson DO [address] [place] [address] [1] Social History Tobacco Use Smoking status: Never Smokeless tobacco: Never Vaping Use Vaping status: Never Used Substance Use Topics Alcohol use: Not Currently Drug use: No Allergies As of Date: 02/18/2025 Noted Allergy Reaction AMOXICILLIN 12/18/2014 2 - Rash CEFTIN (CEFUROXIME AXETIL) 12/18/2014 8 - GI Upset Comments: Vomiting and diarrhea ILOSONE 12/18/2014 2 - Rash NALDECON 03/30/2021 14 - Other: See Comments PENICILLIN 12/18/2014 2 - Rash PHENYLEPHRINE 03/30/2021 14 - Other: See Comments Comments: hallucinations [id number] 03/30/2021 14 - Other: See Comments Comments: hallucinations PSEUDOEPHEDRINE 03/30/2021 14 - Other: See Comments Comments: hallucinations RED DYE 03/30/2021 14 - Other: See Comments Com (more content not included)... Normal [facility] CNPNon 02-09-2025 [facility] Telephone ([facility]IB[facility]) DEBRA MARCH ([id number]) 1985 F Date Time Provider Department 02/09/25 EDER SYKES During your visit today, we recorded the following information about you: Tonya Pineda 02/09/2025 9:19 AM Signed Patient has been identified by name and birthdate. Person Calling: Self Reason for Call: Office called to cancel Hyster, Dr does not do those? Message: Patient received phone call at 9 am stated her hyster with Dr was going to be cancelled on SUN because Dr " Does not do those"? Appointment is still on book, no documentation stating there was a call or reason for cancellation. Please advise patient. Call patient at: [employer] [phone] (home) [phone] (work) [phone] (cell) Duarte Verde 02/09/2025 12:29 PM Signed See most recent [employer] communication. Duarte Verde February 09, 2025 12:29 PM Allergies As of Date: 02/09/2025 Noted Allergy Reaction AMOXICILLIN 12/18/2014 2 - Rash CEFTIN (CEFUROXIME AXETIL) 12/18/2014 8 - GI Upset Comments: Vomiting and diarrhea ILOSONE 12/18/2014 2 - Rash NALDECON 03/30/2021 14 - Other: See Comments PENICILLIN 12/18/2014 2 - Rash PHENYLEPHRINE 03/30/2021 14 - Other: See Comments Comments: hallucinations [id number] 03/30/2021 14 - Other: See Comments Comments: hallucinations PSEUDOEPHEDRINE 03/30/2021 14 - Other: See Comments Comments: hallucinations RED DYE 03/30/2021 14 - Other: See Comments Comments: hallucinations Date Reviewed: 01/20/2025 Reviewed by: Maureen Wright LPN - Fully Assessed Reason for Visit: Office called to cancel HysterDr does not do those? [Other] Prescriptions as of 02/09/2025 - chorionic gonadotropin (PREGNYL) 10,000 unit solr Inject 10,000 units once for HCG Trigger. Mix vials as directed per nursing in office. Administer subcutaneous. - Needle, Disp, 27 G (BD DISPOSABLE NEEDLES) 27 gauge x 1/2" ndle To be used to inject HCG trigger - Syringe with Needle, Disp, (BD LUER-AGUSTIN SYRINGE) To be used to draw up HCG trigger - progesterone micronized (PROMETRIUM) 200 mg capsule Insert 200mg vaginally in AM and 200mg vaginally in PM - topiramate (TOPAMAX) 25 mg tablet Take 1 tablet by mouth two times a day. - ubrogepant (UBRELVY) 100 mg tablet Take 1 tablet by mouth as needed at onset of migraine. May repeat dose at 2 hours if needed. Max 200 mg per 24 hours. Problem List As Of Date 02/09/2025 Noted Resolved Intractable migraine without status migrainosus*05/10/2016 Mixed hypercholesterolemia and hypertriglycerid*05/21/2015 Factor 5 Leiden mutation, heterozygous (HCC) [D* Chest pain [R07.9] 04/02/2021 11/18/2024 Palpitations [R00.2] 04/02/2021 11/18/2024 Herniated intervertebral disc of lumbar spine [*08/19/2021 11/18/2024 Lumbosacral radiculopathy at L5 [M54.17] 08/19/2021 11/18/2024 Acute back pain [M54.9] 02/07/2022 11/18/2024 Well adult exam [Z00.00] 02/07/2022 11/18/2024 Pre-menstrual mood disorder [F32.81] 02/07/2022 Miscarriage [O03.9] 02/05/2023 Class 1 obesity with body mass index (BMI) of 3*07/21/2023 Situational anxiety [F41.8] 03/15/2024 Acute reaction to situational stress [F43.0] 03/15/2024 11/18/2024 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 Rianna Maria Referring Provider: EDER SYKES [[id number]] Allergies As of Date: 02/05/2025 Noted Allergy Reaction AMOXICILLIN 12/18/2014 2 - Rash CEFTIN (CEFUROXIME AXETIL) 12/18/2014 8 - GI Upset Comments: Vomiting and diarrhea ILOSONE 12/18/2014 2 - Rash NALDECON 03/30/2021 14 - Other: See Comments PENICILLIN 12/18/2014 2 - Rash PHENYLEPHRINE 03/30/2021 14 - Other: See Comments Comments: hallucinations [id number] 03/30/2021 14 - Other: See Comments Comments: hallucinations PSEUDOEPHEDRINE 03/30/2021 14 - Other: See Comments Comments: hallucinations RED DYE 03/30/2021 14 - Other: See Comments Comments: hallucinations Date Reviewed: 01/20/2025 Reviewed by: Maureen Wright LPN - Fully Assessed Primary Visit Diagnosis:Female infertility [N97.9] Prescriptions as of 02/23/2025 - ubrogepant (UBRELVY) 100 mg tablet Take 1 tablet by mouth as needed at onset of migraine. May repeat dose at 2 hours if needed. Max 200 mg per 24 hours. - chorionic gonadotropin (PREGNYL) 10,000 unit solr Inject 10,000 units once for HCG Trigger. Mix vials as directed per nursing in office. Administer subcutaneous. - Needle, Disp, 27 G (BD DISPOSABLE NEEDLES) 27 gauge x 1/2" ndle To be used to inject HCG trigger - Syringe with Needle, Disp, (BD LUER-AGUSTIN SYRINGE) To be used to draw up HCG trigger - progesterone micronized (PROMETRIUM) 200 mg capsule Insert 200mg vaginally in AM and 200mg vaginally in PM Problem List As Of Date 02/05/2025 Noted Resolved Intractable migraine without status migrainosus*05/10/2016 Mixed hypercholesterolemia and hypertriglycerid*05/21/2015 Factor 5 Leiden mutation, heterozygous (HCC) [D* Chest pain [R07.9] 04/02/2021 11/18/2024 Palpitations [R00.2] 04/02/2021 11/18/2024 Herniated intervertebral disc of lumbar spine [*08/19/2021 11/18/2024 Lumbosacral radiculopathy at L5 [M54.17] 08/19/2021 11/18/2024 Acute back pain [M54.9] 02/07/2022 11/18/2024 Well adult exam [Z00.00] 02/07/2022 11/18/2024 Pre-menstrual mood disorder [F32.81] 02/07/2022 Miscarriage [O03.9] 02/05/2023 Class 1 obesity with body mass index (BMI) of 3*07/21/2023 Situational anxiety [F41.8] 03/15/2024 Acute reaction to situational stress [F43.0] 03/15/2024 11/18/2024 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 Rianna Maria Allergies As of Date: 02/03/2025 Noted Allergy Reaction AMOXICILLIN 12/18/2014 2 - Rash CEFTIN (CEFUROXIME AXETIL) 12/18/2014 8 - GI Upset Comments: Vomiting and diarrhea ILOSONE 12/18/2014 2 - Rash NALDECON 03/30/2021 14 - Other: See Comments PENICILLIN 12/18/2014 2 - Rash PHENYLEPHRINE 03/30/2021 14 - Other: See Comments Comments: hallucinations [id number] 03/30/2021 14 - Other: See Comments Comments: hallucinations PSEUDOEPHEDRINE 03/30/2021 14 - Other: See Comments Comments: hallucinations RED DYE 03/30/2021 14 - Other: See Comments Comments: hallucinations Date Reviewed: 01/20/2025 Reviewed by: Maureen Wright LPN - Fully Assessed Reason for Visit: Patient Update [1234] Prescriptions as of 02/03/2025 - chorionic gonadotropin (PREGNYL) 10,000 unit solr Inject 10,000 units once for HCG Trigger. Mix vials as directed per nursing in office. Administer subcutaneous. - Needle, Disp, 27 G (BD DISPOSABLE NEEDLES) 27 gauge x 1/2" ndle To be used to inject HCG trigger - Syringe with Needle, Disp, (BD LUER-AGUSTIN SYRINGE) To be used to draw up HCG trigger - progesterone micronized (PROMETRIUM) 200 mg capsule Insert 200mg vaginally in AM and 200mg vaginally in PM - topiramate (TOPAMAX) 25 mg tablet Take 1 tablet by mouth two times a day. - ubrogepant (UBRELVY) 100 mg tablet Take 1 tablet by mouth as needed at onset of migraine. May repeat dose at 2 hours if needed. Max 200 mg per 24 hours. Problem List As Of Date 02/03/2025 Noted Resolved Intractable migraine without status migrainosus*05/10/2016 Mixed hypercholesterolemia and hypertriglycerid*05/21/2015 Factor 5 Leiden mutation, heterozygous (HCC) [D* Chest pain [R07.9] 04/02/2021 11/18/2024 Palpitations [R00.2] 04/02/2021 11/18/2024 Herniated intervertebral disc of lumbar spine [*08/19/2021 11/18/2024 Lumbosacral radiculopathy at L5 [M54.17] 08/19/2021 11/18/2024 Acute back pain [M54.9] 02/07/2022 11/18/2024 Well adult exam [Z00.00] 02/07/2022 11/18/2024 Pre-menstrual mood disorder [F32.81] 02/07/2022 Miscarriage [O03.9] 02/05/2023 Class 1 obesity with body mass index (BMI) of 3*07/21/2023 Situational anxiety [F41.8] 03/15/2024 Acute reaction to situational stress [F43.0] 03/15/2024 11/18/2024 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* Chronic nonintractable headache [R51.9, G89.29] 01/23/2025 Encounter Status:Closed by RIANNA MARIA on 02/03/25 [facility] 01-30-2025 [facility] Telephone (REIBD) DEBRA MARCH ([id number]) 1985 F Date Time Provider Department 01/30/25 EDER SYKES During your visit today, we recorded the following information about you: Theodore Lyons 01/30/2025 2:47 PM Signed Patient is reaching out they would like the results of the genetic testing PLEASE CALL SPOUSE NAMED TARA MARCH, Leola Dawn RN 01/30/2025 3:38 PM Signed Spoke with patient regarding thaw/rebiopsy of no result embryo. States genetic results are in. Patient will call embryology lab. Leola Dawn RN January 30, 2025 3:38 PM Allergies As of Date: 01/30/2025 Noted Allergy Reaction AMOXICILLIN 12/18/2014 2 - Rash CEFTIN (CEFUROXIME AXETIL) 12/18/2014 8 - GI Upset Comments: Vomiting and diarrhea ILOSONE 12/18/2014 2 - Rash NALDECON 03/30/2021 14 - Other: See Comments PENICILLIN 12/18/2014 2 - Rash PHENYLEPHRINE 03/30/2021 14 - Other: See Comments Comments: hallucinations [id number] 03/30/2021 14 - Other: See Comments Comments: hallucinations PSEUDOEPHEDRINE 03/30/2021 14 - Other: See Comments Comments: hallucinations RED DYE 03/30/2021 14 - Other: See Comments Comments: hallucinations Date Reviewed: 01/20/2025 Reviewed by: Maureen Wright LPN - Fully Assessed Reason for Visit: Patient Question [1477] Prescriptions as of 01/30/2025 - chorionic gonadotropin (PREGNYL) 10,000 unit solr Inject 10,000 units once for HCG Trigger. Mix vials as directed per nursing in office. Administer subcutaneous. - Needle, Disp, 27 G (BD DISPOSABLE NEEDLES) 27 gauge x 1/2" ndle To be used to inject HCG trigger - Syringe with Needle, Disp, (BD LUER-AGUSTIN SYRINGE) To be used to draw up HCG trigger - progesterone micronized (PROMETRIUM) 200 mg capsule Insert 200mg vaginally in AM and 200mg vaginally in PM - topiramate (TOPAMAX) 25 mg tablet Take 1 tablet by mouth two times a day. - ubrogepant (UBRELVY) 100 mg tablet Take 1 tablet by mouth as needed at onset of migraine. May repeat dose at 2 hours if needed. Max 200 mg per 24 hours. Problem List As Of Date 01/30/2025 Noted Resolved Intractable migraine without status migrainosus*05/10/2016 Mixed hypercholesterolemia and hypertriglycerid*05/21/2015 Factor 5 Leiden mutation, heterozygous (HCC) [D* Chest pain [R07.9] 04/02/2021 11/18/2024 Palpitations [R00.2] 04/02/2021 11/18/2024 Herniated intervertebral disc of lumbar spine [*08/19/2021 11/18/2024 Lumbosacral radiculopathy at L5 [M54.17] 08/19/2021 11/18/2024 Acute back pain [M54.9] 02/07/2022 11/18/2024 Well adult exam [Z00.00] 02/07/2022 11/18/2024 Pre-menstrual mood disorder [F32.81] 02/07/2022 Miscarriage [O03.9] 02/05/2023 Class 1 obesity with body mass index (BMI) of 3*07/21/2023 Situational anxiety [F41.8] 03/15/2024 Acute reaction to situational stress [F43.0] 03/15/2024 11/18/2024 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 Pathology Reports Accession: Collected Date/Time: Received Date/Time: Pathologist: [id number] 01/27/2025 11:19 EDT 01/27/2025 18:00 EDT Freezer Machine Operator Cytology Report SPECIMEN: Specimen Description: Liquid Prep Reflex ASCUS Specimen: Cervical/Endocervical Screening or Diagnostic: Screening RELEVANT HISTORY: LMP: 01/05/2025 SPECIMEN ADEQUACY: SATISFACTORY FOR EVALUATION Endocervical/Transformational zone component present INTERPRETATION/RESULTS: NEGATIVE FOR INTRAEPITHELIAL LESION OR MALIGNANCY COMMENT: This Pap Test was successfully processed and evaluated with the assistance of the [employer] ThinPrep Test Imaging System. Verified by Pathology report verified by [facility] Screened by: KK Electronically signed by Barbara OREILLY (ASCP) Sign-Out Date: 01/30/2025 13:26 Performing Lab: [facility], [address] [place] [address] Pathology Dept Disclaimer The Pap test is a screening test for cervical cancer. As evidenced by published data, it is subject to both inherent false negative and false positive results. Your patient's results should be interpreted in context with pertinent clinical history including gynecological examination. Normal [facility] CNPNon 01-23-2025 CNPN Telephone (REIBD) DEBRA MARCH ([id number]) 1985 F Date Time Provider Department 01/23/25 EDER SYKES During your visit today, we recorded the following information about you: Theodore Lyons 01/23/2025 9:35 AM Signed (Lab) Patient's Spouse is calling in and they want to get more DNA out of the embryo (Nurse)Has questions about SIS results (Nurse) Needs new script for HCG for transfer Delaney Jones RN 01/23/2025 2:47 PM Signed Called patient to number listed, verified pt. Patient of Dr. Perez'jessica who say Dr. Guidry for post retrieval. She needs orders for polyp removal. She cannot take OCP, will need to be done cycle day 5-11. She uploaded her consents needed for PGT testing. Episode created and checklist updated. Delaney Jones RN January 23, 2025 2:36 PM Allergies As of Date: 01/23/2025 Noted Allergy Reaction AMOXICILLIN 12/18/2014 2 - Rash CEFTIN (CEFUROXIME AXETIL) 12/18/2014 8 - GI Upset Comments: Vomiting and diarrhea ILOSONE 12/18/2014 2 - Rash NALDECON 03/30/2021 14 - Other: See Comments PENICILLIN 12/18/2014 2 - Rash PHENYLEPHRINE 03/30/2021 14 - Other: See Comments Comments: hallucinations [id number] 03/30/2021 14 - Other: See Comments Comments: hallucinations PSEUDOEPHEDRINE 03/30/2021 14 - Other: See Comments Comments: hallucinations RED DYE 03/30/2021 14 - Other: See Comments Comments: hallucinations Date Reviewed: 01/20/2025 Reviewed by: Maureen Wright LPN - Fully Assessed Reason for Visit: Patient Question [5187] Primary Visit Diagnosis:Pre-conception counseling [Z31.69] Order(s):TYPE + SCREEN [SQTSCR] Order #: [id number] FUTURE RUBELLA IGG ANTIBODY [SQRUBQNT] Order #: [id number] FUTURE chorionic gonadotropin (PREGNYL) 10,000 unit solrInject 10,000 units once for HCG Trigger. Mix vials as directed per nursing in office. Administer subcutaneous.Disp: 1 eachRfl: 0 Needle, Disp, 27 G (BD DISPOSABLE NEEDLES) 27 gauge x 1/2" ndleTo be used to inject HCG triggerDisp: 1 eachRfl: 1 Syringe with Needle, Disp, (BD LUER-AGUSTIN SYRINGE)To be used to draw up HCG triggerDisp: 1 eachRfl: 3 progesterone micronized (PROMETRIUM) 200 mg capsuleInsert 200mg vaginally in AM and 200mg vaginally in PMDisp: 60 capsuleRfl: 3 Prescriptions as of 01/23/2025 - chorionic gonadotropin (PREGNYL) 10,000 unit solr Inject 10,000 units once for HCG Trigger. Mix vials as directed per nursing in office. Administer subcutaneous. - Needle, Disp, 27 G (BD DISPOSABLE NEEDLES) 27 gauge x 1/2" ndle To be used to inject HCG trigger - Syringe with Needle, Disp, (BD LUER-AGUSTIN SYRINGE) To be used to draw up HCG trigger - progesterone micronized (PROMETRIUM) 200 mg capsule Insert 200mg vaginally in AM and 200mg vaginally in PM - topiramate (TOPAMAX) 25 mg tablet Take 1 tablet by mouth two times a day. - ubrogepant (UBRELVY) 100 mg tablet Take 1 tablet by mouth as needed at onset of migraine. May repeat dose at 2 hours if needed. Max 200 mg per 24 hours. Problem List As Of Date 01/23/2025 Noted Resolved Intractable migraine without status migrainosus*05/10/2016 Mixed hypercholesterolemia and hypertriglycerid*05/21/2015 Factor 5 Leiden mutation, heterozygous (HCC) [D* Chest pain [R07.9] 04/02/2021 11/18/2024 Palpitations [R00.2] 04/02/2021 11/18/2024 Herniated intervertebral disc of lumbar spine [*08/19/2021 11/18/2024 Lumbosacral radiculopathy at L5 [M54.17] 08/19/2021 11/18/2024 Acute back pain [M54.9] 02/07/2022 11/18/2024 Well adult exam [Z00.00] 02/07/2022 11/18/2024 Pre-menstrual mood disorder [F32.81] 02/07/2022 Miscarriage [O03.9] 02/05/2023 Class 1 obesity with body mass index (BMI) of 3*07/21/2023 Situational anxiety [F41.8] 03/15/2024 Acute reaction to situational stress [F43.0] 03/15/2024 11/18/2024 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 Mix vials as directed per nursing in office. Administer subcutaneous. BD REGULAR BEVEL NEEDLES 27 GAUGE X * 1 ea* 1 01/23/2025 Sig: To be used to inject HCG trigger SYRINGE WITH NEEDLE 3 ML 20 GAUGE X * 1 ea* 3 01/23/2025 Sig: To be used to draw up HCG trigger PROGESTERONE MICRONIZED 200 MG CAPSU* 60 c* 3 01/23/2025 Cmt: compounded Sig: Insert 200mg vaginally in AM and 200mg vaginally in PM Encounter Status:Closed by EDER HUTCHINSON on 01/23/25 [facility] CNOVon 01-20-2025 CNOV Office Visit (FAMPWS ) DEBRA MARCH ([id number]) 1985 F Date Time Provider Department 01/20/25 1:00 PM FRANTZ BENSON During your visit today, we recorded the following information about you: Temperature Pulse Respiration Blood pressure 97.7 degrees 76/minute 12/minute 104/60 Weight 81.6 kg Frantz Benson, 01/23/2025 8:44 AM Signed CC: Debra March is a 39 year old female who presents to the office for follow up HPI: Obesity, weight at 180 lbs. Previously at 183-184 lbs about 3 months ago. Knows need for weight loss. She is considering Invitro/Reproductive endocrine treatment She was tried on medication Metformin - stopped this per patient because she felt it caused hair loss and headache She was then tried on Phentermine- stopped this per patient because she felt it caused heart rate increase She is interested in losing 10-20 lbs before attempts at Less stress in her life now that her family is living with her father and saving money to buy another home in future. + chronic headaches, unsure trigger. No new vision changes, no fevers or chills. No hearing changes. Not worse DURAN of life. 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 ubrogepant (UBRELVY) 100 mg tablet Take 1 tablet by mouth as needed at onset of migraine. May repeat dose at 2 hours if needed. Max 200 mg per 24 hours. No current facility-administered medications for this visit. ALLERGIES Allergen Reactions Amoxicillin Rash Ceftin [Cefuroxime * GI Upset Vomiting and diarrhea Ilosone Rash Naldecon Other: See Comments Penicillin Rash Phenylephrine Other: See Comments hallucinations Kohpcggzmbr-Wc-Qpdt* Other: See Comments hallucinations Pseudoephedrine Other: See Comments hallucinations Red Dye Other: See Comments hallucinations SOCIAL HISTORY[1] ROS: See HPI PE: BP 104/60 Pulse 76 Temp (Src) 97.7 (Left Tympanic) Resp 12 Wt 180 lb (81.6kg) LMP 01/05/2025 Gen: AANDOX3, NAD, non-toxic appearing HEENT: PERRLA, EOMs intact b/l, nares without drainage, pharynx without erythema, exudate, lesions, or drainage. Uvula midline. Neck: No LAD, no thyromegaly, no meningismus. + cervical spine muscle tension and trapezius tension CV: RRR, no murmur Lungs: CTA b/l, no wheezing Skin: No rashes, lesions, or wounds on exposed skin. Central obesity Non focal neurologic examination Normal gait Normal speech ASSESSMENT/PLAN: 1. Class 1 obesity with body mass index (BMI) of 32.0 to 32.9 in adult, unspecified obesity type, unspecified whether serious comorbidity present - ICD9: 278.00, V85.32, ICD10: E66.811, Z68.32 (primary diagnosis) Stable - Add Topiramate Continue exercise and healthy diet - TOPIRAMATE 25 MG TABLET 2. Chronic nonintractable headache, unspecified headache type - ICD9: 784.0, ICD10: R51.9, G89.29 Referral to PHYSICAL THERAPY Start on vitamin combination- vit d, magnesium, riboflavin - CONSULT TO PHYSICAL THERAPY 3. Situational anxiety - ICD9: 300.09, ICD10: F41.8 stable Frantz Benson DO Return if no improvement. Follow up with Frantz Benson DO. To ER if develops chest pain, shortness of breath. Discussed risks, benefits, alternatives, and potential side effects of medications. Patient/Guardian expressed understanding and agreed with the plan. See patient instructions. Frantz Benson DO [address] [place] [address] [1] Social History Tobacco Use Smoking status: Never Smokeless tobacco: Never Vaping Use Vaping status: Never Used Substance Use Topics Alcohol use: Not Currently Drug use: No Frantz Benson DO 01/20/2025 1:43 PM Addendum Chronic headaches Physical therapy/dry needling Jeremy and Alfredo are good at [facility] Magnesium glycinate or gluconate or citrate at 400-800 mg a day Vitamin D3 at least 2000 international unit(s) a day Riboflavin 400 mg a day Allergies As of Date: 01/20/2025 Noted Allergy Reaction AMOXICILLIN 12/18/2014 2 - Rash CEFTIN (CEFUROXIME AXETIL) 12/18/2014 8 - GI Upset Comments: Vomiting and diarrhea ILOSONE 12/18/2014 2 - Rash NALDECON 03/30/2021 14 - Other: See Comments PENICILLIN 11/20 (more content not included)... Normal [facility] CNOVon 01-15-2025 CNOV Office Visit (REIBD) BOARIAMARVINDEBRA M ([id number]) 1985 F Date Time Provider Department 01/15/25 12:45 PM [employer] [facility] REIBD During your visit today, we recorded the following information about you: Pulse Blood pressure Weight Height 78/minute 127/84 82.3 kg 1.575 m Tanja Abad PA-C 01/23/2025 5:20 PM Signed Debra Wheeleraria is a 39 year old here for SIS. Referred by: Farideh Perez [id number] [facility] [id number] Chief Complaint: Encounter for fertility testing Endometrial Biopsy: No Ultrasound: Yes Hormonal therapy: No. LMP: Patient's last menstrual period was 01/05/2025 (exact date). Cycles: PERIOD REGULARITY: regular q 28-30 days Contraception: none HCG: negative UNIVERSAL PROTOCOL / SAFETY CHECKLIST Procedure to be Performed: SIS Sign In: A Moment of CARE was completed. Appropriate PPE (Personal Protective Equipment) worn by all providers involved with the procedure. Special equipment utilized . Patient/Surrogate Stated/Verified: Patient name, Date of , Relevant allergies, and The intended procedure Time Out: Relevant labs, photos, and/or imaging studies have been reviewed. Intended patient and procedure match the source document(s) (e.g. consent, HANDP, associated studies [imaging, pathology]) match the intended patient and procedure. Consent obtained and matches the intended procedure. Yes. Correct side/site is not applicable. Medications required for this procedure are not applicable. Fire risk assessed and is not applicable. Implants: are not applicable. Sign Out: Specimens not collected. All instruments, equipment, possible retained foreign bodies are accounted for. Yes. The post-procedure plan of care has been communicated to the patient or surrogate. PROCEDURE: SIS EXTERNAL GENITALIA: Normal in appearance without lesions VAGINA: Normal in appearance without lesions Speculum placed into the vagina with excellent visualization of the cervix. Cervix cleaned with Hibiclens. SIS catheter inserted into the uterus without difficulty. Speculum removed and 10mL sterile saline injected into the uterine cavity under ultrasound guidance. Procedure Summary: Patient tolerated procedure well. See ViewPoint for procedure results. FYI: DR. Perez and DR. Lakeshia Abad PA-C Referring Provider: EDER SYKES [[id number]] Allergies As of Date: 01/15/2025 Noted Allergy Reaction AMOXICILLIN 12/18/2014 2 - Rash CEFTIN (CEFUROXIME AXETIL) 12/18/2014 8 - GI Upset Comments: Vomiting and diarrhea ILOSONE 12/18/2014 2 - Rash NALDECON 03/30/2021 14 - Other: See Comments PENICILLIN 12/18/2014 2 - Rash PHENYLEPHRINE 03/30/2021 14 - Other: See Comments Comments: hallucinations [id number] 03/30/2021 14 - Other: See Comments Comments: hallucinations PSEUDOEPHEDRINE 03/30/2021 14 - Other: See Comments Comments: hallucinations RED DYE 03/30/2021 14 - Other: See Comments Comments: hallucinations Date Reviewed: 01/15/2025 Reviewed by: Tanja Abad PA-C - Fully Assessed Reason for Visit: SIS [Other] Primary Visit Diagnosis:Encounter for fertility testing [Z31.41] Other Visit Diagnosis:Pre-procedural laboratory examination [Z01.812] Order(s):SONOHYSTEROGRAPHY (SIS) [facility] [[id number]] Order #: [id number]. #:[id number] ty: 1 HCG QUAL UR B/O [[id number]] Order #: [id number] Prescriptions as of 01/23/2025 - chorionic gonadotropin (PREGNYL) 10,000 unit solr Inject 10,000 units once for HCG Trigger. Mix vials as directed per nursing in office. Administer subcutaneous. - Needle, Disp, 27 G (BD DISPOSABLE NEEDLES) 27 gauge x 1/2" ndle To be used to inject HCG trigger - Syringe with Needle, Disp, (BD LUER-AGUSTIN SYRINGE) To be used to draw up HCG trigger - progesterone micronized (PROMETRIUM) 200 mg capsule Insert 200mg vaginally in AM and 200mg vaginally in PM - topiramate (TOPAMAX) 25 mg tablet Take 1 tablet by mouth two times a day. - ubrogepant (UBRELVY) 100 mg tablet Take 1 tablet by mouth as needed at onset of migraine. May repeat dose at 2 hours if needed. Max 200 mg per 24 hours. Problem List As Of Date 01/15/2025 Noted Resolved Intractable migraine without status migrainosus*05/10/2016 Mixed hypercholesterolemia and hypertriglycerid*05/21/2015 Factor 5 Leiden mutation, heterozygous (HCC) [D* Chest pain [R07.9] 04/02/2021 11/18/2024 Palpitations [R00.2] 04/02/2021 11/18/2024 Herniated intervertebral disc of lumbar spine [*08/19/2021 11/18/2024 Lumbosacral radiculopathy at L5 [M54.17] 08/19/2021 11/18/2024 Acute back pain [M54.9] 02/07/2022 11/18/2024 Well adult exam [Z00.00] 02/07/2022 11/18/2024 Pre-menstrual mood disorder [F32.81] 02/07/2022 Miscarriage [O03.9] 02/05/2023 Class 1 obesity with body mass index (BMI) of 3*07/21/2023 Situational anxiety [F41.8] 03/15/20 (more content not included)... Normal [facility] HCG QUAL UR B/OOrdered By: Abi Dale on 01-15-2025 status Negative neg - pos [facility] Quality Check Yes yes/no [facility] US Uterus and Fallopian tube s W saline IUon 01-15-2025 Indication Fertility Testing Impression Saline infusion sonohysterogram demonstrated an intracavitary lesion. The details of these findings are described in the procedure section below. Uterus: Polyp(s): Size 7 mm x 5 mm x 7 mm. Mean 6.3 mm. Posterior Right Ovary: Size 37 mm x 30 mm x 31 mm Left Ovary: Size 30 mm x 23 mm x 20 mm Recommendations Consider hysteroscopic evaluation and management of intracavitary lesion if clinically indicated. Menstrual History LMP on 01/05/2025. Day of cycle 11. Contraception: none Method Transvaginal, 3D ultrasound examination, Color Doppler examination, Saline Infusion Sonohysterogram Uterus Uterus: Visualized Uterus position: retroverted Description of uterine malformations: none Myometrium: heterogeneous Endometrium: polyp noted Cervix details: normal Uterus length 86 mm Uterus width 56 mm Uterus height 47 mm Uterus Vol 118.0 cm Endometrial thickness single layer 2.7 mm Endom. th. single layer 2.7 mm Side: anterior Side: posterior Endometrial thickness, total 5.4 mm Polyps: Polyps identified Uterine polyp D1 7 mm Uterine polyp D2 5 mm Uterine polyp D3 7 mm Uterine polyp mean 6.3 mm Uterine polyp findings: Posterior Right Ovary Rt ovary: Visualized Rt ovary morphology: normal Rt ovary D1 37 mm Rt ovary D2 30 mm Rt ovary D3 31 mm Rt ovary Vol 18.1 cm Left Ovary Lt ovary: Visualized Lt ovary morphology: normal Lt ovary D1 30 mm Lt ovary D2 23 mm Lt ovary D3 20 mm Lt ovary Vol 7.3 cm Cul de Sac Visualized. no free fluid visualized Procedure Saline infused ultrasound was performed and shows evidence of intrauterine pathology. An endometrial polyp was seen originating from the posterior wall* measuring 7 x 5 x 7 *mm. The anterior single layer endometrial thickness measured 2.7 mm and the posterior single layer endometrial thickness measured 2.7 mm. To characterize the endometrial cavity, three dimensional imaging was created on a dedicated stand-alone 3D workstation with images created and archived, and supervised and reviewed by the interpreting physician utilizing images from an ultrasound scan performed today. Performed By: Alba Aguilera RDMS Read By: Luciana Asher MD MATERNAL MEDICINE [facility] Radiology Study observation (narrative) [facility] [id number] 01-09-2025 HNO ID: [id number] Author: MELINDA GUIDRY MD Service: ? Author Type: Physician Type: Filed: 01/12/2025 09:00 Note Text: Assessment- IVF for genetic testing Plan- PGT-M results are still pending. Will get her SIS done but wants to delay the FET till March. Given her factor Leiden 5 mutation will proceed with a natural FET using hcg trigger at mid cycle and prog supp in the luteal phase. I spent a total of 40 minutes on the date of the service which included preparing to see the patient, [id number] patient care, completing clinical documentation, and counseling and educating the patient/family/caregiver. Melinda Guidry MD ALICE Frozen Embryo Transfer Treatment Plan: Number of embryos: one normal non affected, waiting for the PGTM resutls Uterine cavity testing: on 01/15/2025 no yet done Protocol: Natural Type of progesterone: prog supp 20 mg bid per vagina OK for OCPs to delay cycle start if needed: No Melinda Palacios MD 01/09/2025 Normal [facility] CNOVon 01-09-2025 CNOV Office Visit (REIBD) DEBRA MARCH ([id number]) 1985 F Date Time Provider Department 01/09/25 10:15 AM MELINDA GUIDRY During your visit today, we recorded the following information about you: Pulse Blood pressure Weight Height 73/minute 115/73 82.1 kg 1.575 m Last Period 01/05/25 Melinda Guidry MD 01/12/2025 9:00 AM Signed [facility] NEW PATIENT CLINIC NOTE SERVICE DATE: 01/09/2025 SERVICE TIME: 10:02 AM NAME: Debra March Chris pt her for post retrieval discussion. HISTORY OF PRESENT ILLNESS Debra March is a 39 year old female to discuss steps for embryo transfer. Has sis scheduled for the 01/15/25. States her ob places her on lovinox when she becomes . Has never had a blood clot. 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 IVF#1 11/25/2024- 30 oocytes, 26 mature, 14 embryos (3 normal, 2 MOS, 8 ABN, 1 No Result) Last visit with Dr. Perez 08/15/24: Debra March is a 39 year old female with Debra is a 39 year old female with infertility and fibroids. For the past several months, her sons underwent evaluation for developmental delay and Autism. Her oldest son has autism and another son has a genetic condition. One son missing a chromosome and another son has chromosome duplications. She was told that the best way to have a baby is to have IVF and PGT. The genetic records is not available. She would like to freeze her eggs and hope to use the eggs in 6-12 months. Of note, she wa told by her ob when she was much younger that she should not on ocp because her mother has varicose vein and ?blood clots. OB History Obstetric History T3 L3 SAB1 IAB0 Ectopic0 Multiple0 Live Births3 10/2015 - 01/09/2019 - ? 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 Menstrual cycle pattern: Regular periods (25-34 days in length) Cycle length (days): 28-31 Days of bleedin-5 OPK use: Yes, able to detect Dysmenorrhea: Rarely Dyspareunia: No STI history: None Last Pap Smear Date: 02/19/24 Last pap outcome: Normal History of abnormal PAP: No, all prior PAP smears have been normal Procedure for abnormal pap smear: None Fertility Evaluations and Treatments: Eval Checklist Results Date Comments HSG Hysteroscopy Laparoscopy OPK (Ovulation Predictor Kit) Ovarian [place] Saline Ultrasound Semen Analysis Ultrasound Other (See comments) LABS/IMAGING: 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 may sometimes experience a short period of breathing paralysis following anesthesia (such as succinylcholine or mivacurium) Factor 5 Leiden mutation, heterozygous (HCC) Genetic disorder (HCC) Lumbosacral radiculopathy at L5 08/19/2021 PAST SURGICAL HISTORY Procedure Laterality Date DELIVERY ONLY , low transverse x 3 11/02/15,01/09/19, 11/25/20 TONSILLECTOMY PRIMARY/SECONDARY Tonsillectomy FAMILY HISTORY Problem Relation Age of Onset Cancer Mother 55 multiple myeloma Hyperlipidemia Father Diabetes Father borderline Hyperlipidemia Brother Breast Cancer Maternal Grandmother Diabetes Maternal Grandmother Heart Maternal Grandmother Heart Maternal Grandfather Cancer Paternal Grandmother Brain Heart Paternal Grandfather Heart Attack Paternal Grandfather No Known Problems Daughter Ovarian cancer No Family History SOCIAL HISTORY[1] Current Outpatient Medications Medication Sig ubrogepant (UBRELVY) 100 mg tablet Take 1 tablet by mouth as needed at onset of migraine. May repeat dose at 2 hours if needed. Max 200 mg per 24 hours. No current facility-administered medications for this visit. Allergies As of Date: 01/09/2025 Allergen Noted Reaction AMOXICILLIN 12/18/2014 Rash CEFTIN [CEFUROXIME AXETIL] 12/18/2014 GI Upset ILOSONE 12/18/2014 Rash NALDECON 03/30/2021 Other: See Comments PENICILLIN 12/18/2014 Rash PHENYLEPHRINE 03/30/2021 Other: See Comments [id number] 03/30/2021 Other: See Comments PSEUDOEPHEDRINE 03/30/2021 Other: See Comments RED DYE 03/30/2021 Other: See Comments Fully Assessed 01/09/2025 Partner History Both patient and partner give permission to discuss test results and medication information with the other. Partner gives permission to access EMR. Partner Information Partner's Name: Tara March Partner's : 04/15/1987 Partner's Partner's Ethnicity: Partner's Race: Medications: pantropazole. Additional Partner Assessment Findings: He has Hod (more content not included)... Normal [facility] CNPNon 12-19-2024 CNPN Telephone (REIBD) MARVIN MARCHSSMAYDA Dawn ([id number]) 1985 F Date Time Provider Department 12/19/24 EDER SYKES During your visit today, we recorded the following information about you: Theodore Lyons 12/19/2024 2:55 PM Signed pt is reaching out with questions about pgt and genetic testing, please contact patient Leola Dawn RN 12/22/2024 11:08 AM Signed Return call. No answer. Mychart sent. Email sent to Kiran asking them to call me to review what is needed for the patient. Leola Dawn RN December 22, 2024 11:08 AM Allergies As of Date: 12/19/2024 Noted Allergy Reaction AMOXICILLIN 12/18/2014 2 - Rash CEFTIN (CEFUROXIME AXETIL) 12/18/2014 8 - GI Upset Comments: Vomiting and diarrhea ILOSONE 12/18/2014 2 - Rash NALDECON 03/30/2021 14 - Other: See Comments PENICILLIN 12/18/2014 2 - Rash PHENYLEPHRINE 03/30/2021 14 - Other: See Comments Comments: hallucinations [id number] 03/30/2021 14 - Other: See Comments Comments: hallucinations PSEUDOEPHEDRINE 03/30/2021 14 - Other: See Comments Comments: hallucinations RED DYE 03/30/2021 14 - Other: See Comments Comments: hallucinations Date Reviewed: 11/25/2024 Reviewed by: Aline Woodruff RN - Fully Assessed Reason for Visit: pt is reaching out with questions about pgt and genetic niall [Other] Prescriptions as of 12/22/2024 - ubrogepant (UBRELVY) 100 mg tablet Take 1 tablet by mouth as needed at onset of migraine. May repeat dose at 2 hours if needed. Max 200 mg per 24 hours. Problem List As Of Date 12/19/2024 Noted Resolved Intractable migraine without status migrainosus*05/10/2016 Mixed hypercholesterolemia and hypertriglycerid*05/21/2015 Factor 5 Leiden mutation, heterozygous (HCC) [D* Chest pain [R07.9] 04/02/2021 11/18/2024 Palpitations [R00.2] 04/02/2021 11/18/2024 Herniated intervertebral disc of lumbar spine [*08/19/2021 11/18/2024 Lumbosacral radiculopathy at L5 [M54.17] 08/19/2021 11/18/2024 Acute back pain [M54.9] 02/07/2022 11/18/2024 Well adult exam [Z00.00] 02/07/2022 11/18/2024 Pre-menstrual mood disorder [F32.81] 02/07/2022 Miscarriage [O03.9] 02/05/2023 Class 1 obesity with body mass index (BMI) of 3*07/21/2023 Situational anxiety [F41.8] 03/15/2024 Acute reaction to situational stress [F43.0] 03/15/2024 11/18/2024 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* Encounter Status:Closed [facility]OL[facility] DA[facility] DEBRA MARCH ([id number]) 1985 F Date Time Provider Department 12/12/24 EDER SYKES During your visit today, we recorded the following information about you: Leola Dawn RN 12/12/2024 11:38 AM Signed Attempted to call patient to discuss next steps per Dr. Perez. No answer. Ordered SIS and mychart sent to patient. Leola Dawn RN December 12, 2024 11:38 AM Tonya Pineda 12/12/2024 12:[address] order for SIS. Explained to patinet we needed to get SIS authorized before scheduling. Patient was not happy with my explanation or the wait involved. Allergies As of Date: 12/12/2024 Noted Allergy Reaction AMOXICILLIN 12/18/2014 2 - Rash CEFTIN (CEFUROXIME AXETIL) 12/18/2014 8 - GI Upset Comments: Vomiting and diarrhea ILOSONE 12/18/2014 2 - Rash NALDECON 03/30/2021 14 - Other: See Comments PENICILLIN 12/18/2014 2 - Rash PHENYLEPHRINE 03/30/2021 14 - Other: See Comments Comments: hallucinations [id number] 03/30/2021 14 - Other: See Comments Comments: hallucinations PSEUDOEPHEDRINE 03/30/2021 14 - Other: See Comments Comments: hallucinations RED DYE 03/30/2021 14 - Other: See Comments Comments: hallucinations Date Reviewed: 11/25/2024 Reviewed by: Aline Woodruff RN - Fully Assessed Reason for Visit: Orders [681] Primary Visit Diagnosis:Encounter for fertility testing [Z31.41] Order(s):SONOHYSTEROGRAPHY (SIS) [facility] [[id number]] Order #: [id number]: 1 FUTURE Prescriptions as of 12/12/2024 - ubrogepant (UBRELVY) 100 mg tablet Take 1 tablet by mouth as needed at onset of migraine. May repeat dose at 2 hours if needed. Max 200 mg per 24 hours. Problem List As Of Date 12/12/2024 Noted Resolved Intractable migraine without status migrainosus*05/10/2016 Mixed hypercholesterolemia and hypertriglycerid*05/21/2015 Factor 5 Leiden mutation, heterozygous (HCC) [D* Chest pain [R07.9] 04/02/2021 11/18/2024 Palpitations [R00.2] 04/02/2021 11/18/2024 Herniated intervertebral disc of lumbar spine [*08/19/2021 11/18/2024 Lumbosacral radiculopathy at L5 [M54.17] 08/19/2021 11/18/2024 Acute back pain [M54.9] 02/07/2022 11/18/2024 Well adult exam [Z00.00] 02/07/2022 11/18/2024 Pre-menstrual mood disorder [F32.81] 02/07/2022 Miscarriage [O03.9] 02/05/2023 Class 1 obesity with body mass index (BMI) of 3*07/21/2023 Situational anxiety [F41.8] 03/15/2024 Acute reaction to situational stress [F43.0] 03/15/2024 11/18/2024 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* Encounter Status:Closed by LEOLA DAWN on 12/12/24 [facility] Josef 12-05-2024 CNPN Telephone ([facility]) DEBRA MARCH ([id number]) 1985 F Date Time Provider Department 12/05/24 BARRETT FERRIS [facility] During your visit today, we recorded the following information about you: Barrett Ferris, MYRNA 12/05/2024 11:28 AM Signed Ambulatory Pharmacy Prior Authorization Note Provider Intervention Required?: No - Pharmacy completed on your behalf. Was the PA documented within the ePA workqueue?: Yes Drug: UBRELVY View the status history of the prior authorization in the Auth Tab within Chart Review Additional Information: See Auth Tab under chart review for more details. For questions relating to this submission, please contact [facility] at [phone] Allergies As of Date: 12/05/2024 Noted Allergy Reaction AMOXICILLIN 12/18/2014 2 - Rash CEFTIN (CEFUROXIME AXETIL) 12/18/2014 8 - GI Upset Comments: Vomiting and diarrhea ILOSONE 12/18/2014 2 - Rash NALDECON 03/30/2021 14 - Other: See Comments PENICILLIN 12/18/2014 2 - Rash PHENYLEPHRINE 03/30/2021 14 - Other: See Comments Comments: hallucinations [id number] 03/30/2021 14 - Other: See Comments Comments: hallucinations PSEUDOEPHEDRINE 03/30/2021 14 - Other: See Comments Comments: hallucinations RED DYE 03/30/2021 14 - Other: See Comments Comments: hallucinations Date Reviewed: 11/25/2024 Reviewed by: Aline Woodruff RN - Fully Assessed Reason for Visit: Insurance Authorization [[id number]] Prescriptions as of 12/05/2024 - ubrogepant (UBRELVY) 100 mg tablet Take 1 tablet by mouth as needed at onset of migraine. May repeat dose at 2 hours if needed. Max 200 mg per 24 hours. Problem List As Of Date 12/05/2024 Noted Resolved Intractable migraine without status migrainosus*05/10/2016 Mixed hypercholesterolemia and hypertriglycerid*05/21/2015 Factor 5 Leiden mutation, heterozygous (HCC) [D* Chest pain [R07.9] 04/02/2021 11/18/2024 Palpitations [R00.2] 04/02/2021 11/18/2024 Herniated intervertebral disc of lumbar spine [*08/19/2021 11/18/2024 Lumbosacral radiculopathy at L5 [M54.17] 08/19/2021 11/18/2024 Acute back pain [M54.9] 02/07/2022 11/18/2024 Well adult exam [Z00.00] 02/07/2022 11/18/2024 Pre-menstrual mood disorder [F32.81] 02/07/2022 Miscarriage [O03.9] 02/05/2023 Class 1 obesity with body mass index (BMI) of 3*07/21/2023 Situational anxiety [F41.8] 03/15/2024 Acute reaction to situational stress [F43.0] 03/15/2024 11/18/2024 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* Encounter Status:Closed by BARRETT FERRIS on 12/05/24 [facility] Telephone (REIBD) JOAQUIMDEBRA Dawn ([id number]) 1985 F Date Time Provider Department 12/05/24 EDER SYKES REMARLO During your visit today, we recorded the following information about you: Jade Frederick 12/05/2024 2:06 PM Signed kiran [employer] is calling on behalf of pt... they are calling to request an order for PGT-A only (no PGTA-M) per the patients request Leola Dawn RN 12/05/2024 3:16 PM Signed Kiran req completed by this RN on Sunday 12/03. Dr. Perez signed today and it is now received by Kiran. Leola Dawn RN December 05, 2024 3:16 PM Allergies As of Date: 12/05/2024 Noted Allergy Reaction AMOXICILLIN 12/18/2014 2 - Rash CEFTIN (CEFUROXIME AXETIL) 12/18/2014 8 - GI Upset Comments: Vomiting and diarrhea ILOSONE 12/18/2014 2 - Rash NALDECON 03/30/2021 14 - Other: See Comments PENICILLIN 12/18/2014 2 - Rash PHENYLEPHRINE 03/30/2021 14 - Other: See Comments Comments: hallucinations [id number] 03/30/2021 14 - Other: See Comments Comments: hallucinations PSEUDOEPHEDRINE 03/30/2021 14 - Other: See Comments Comments: hallucinations RED DYE 03/30/2021 14 - Other: See Comments Comments: hallucinations Date Reviewed: 11/25/2024 Reviewed by: Tomazic, Aline, RN - Fully Assessed Reason for Visit: [employer] is calling on behalf of pt... [Other] Prescriptions as of 12/05/2024 - ubrogepant (UBRELVY) 100 mg tablet Take 1 tablet by mouth as needed at onset of migraine. May repeat dose at 2 hours if needed. Max 200 mg per 24 hours. Problem List As Of Date 12/05/2024 Noted Resolved Intractable migraine without status migrainosus*05/10/2016 Mixed hypercholesterolemia and hypertriglycerid*05/21/2015 Factor 5 Leiden mutation, heterozygous (HCC) [D* Chest pain [R07.9] 04/02/2021 11/18/2024 Palpitations [R00.2] 04/02/2021 11/18/2024 Herniated intervertebral disc of lumbar spine [*08/19/2021 11/18/2024 Lumbosacral radiculopathy at L5 [M54.17] 08/19/2021 11/18/2024 Acute back pain [M54.9] 02/07/2022 11/18/2024 Well adult exam [Z00.00] 02/07/2022 11/18/2024 Pre-menstrual mood disorder [F32.81] 02/07/2022 Miscarriage [O03.9] 02/05/2023 Class 1 obesity with body mass index (BMI) of 3*07/21/2023 Situational anxiety [F41.8] 03/15/2024 Acute reaction to situational stress [F43.0] 03/15/2024 11/18/2024 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* Encounter Status:Closed by LEOLA DAWN on 12/05/24 Normal [facility] CNCOon 12-01-2024 CNCO Letter Text Normal [facility] CNOVon 12-01-2024 CNOV Office Visit (ANDRBE ) DEBRA MARCH ([id number]) 1985 F Date Time Provider Department 12/01/24 3:00 PM ANDROLOGY [employer]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 PGT-A Gabe Sood IVF Tech December 01, 2024 1:30 PM Referring Provider: EDER SYKES [[id number]] Allergies As of Date: 12/01/2024 Noted Allergy Reaction AMOXICILLIN 12/18/2014 2 - Rash CEFTIN (CEFUROXIME AXETIL) 12/18/2014 8 - GI Upset Comments: Vomiting and diarrhea ILOSONE 12/18/2014 2 - Rash NALDECON 03/30/2021 14 - Other: See Comments PENICILLIN 12/18/2014 2 - Rash PHENYLEPHRINE 03/30/2021 14 - Other: See Comments Comments: hallucinations [id number] 03/30/2021 14 - Other: See Comments Comments: hallucinations PSEUDOEPHEDRINE 03/30/2021 14 - Other: See Comments Comments: hallucinations RED DYE 03/30/2021 14 - Other: See Comments Comments: hallucinations Date Reviewed: 11/25/2024 Reviewed by: Aline Woodruff RN - Fully Assessed Primary Visit Diagnosis: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 May repeat dose at 2 hours if needed. Max 200 mg per 24 hours. Problem List As Of Date 12/01/2024 Noted Resolved Intractable migraine without status migrainosus*05/10/2016 Mixed hypercholesterolemia and hypertriglycerid*05/21/2015 Factor 5 Leiden mutation, heterozygous (HCC) [D* Chest pain [R07.9] 04/02/2021 11/18/2024 Palpitations [R00.2] 04/02/2021 11/18/2024 Herniated intervertebral disc of lumbar spine [*08/19/2021 11/18/2024 Lumbosacral radiculopathy at L5 [M54.17] 08/19/2021 11/18/2024 Acute back pain [M54.9] 02/07/2022 11/18/2024 Well adult exam [Z00.00] 02/07/2022 11/18/2024 Pre-menstrual mood disorder [F32.81] 02/07/2022 Miscarriage [O03.9] 02/05/2023 Class 1 obesity with body mass index (BMI) of 3*07/21/2023 Situational anxiety [F41.8] 03/15/2024 Acute reaction to situational stress [F43.0] 03/15/2024 11/18/2024 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* Encounter Status:Closed by GABE SOOD on 12/01/24 Normal [facility] ANES POSTPROC EVALon 025 ANES POSTPROC EVAL HNO ID: [id number] Author: SHUKRI NICHOLSON MD Service: Anesthesiology Author Type: Anesthesiologist Type: Anesthesia Postprocedure Evaluation Filed: 11/25/2024 13:40 Note Text: POST ANESTHESIA EVALUATION NOTE : 1985 Procedure Summary Date: 11/25/24 Room / Location: [address] Anesthesia Start: 1106 Anesthesia Stop: 1141 Procedure: FOLLICLE PUNCTURE FOR OOCYTE RETRIEVAL (Vagina ) Diagnosis: Female infertility (Female infertility [N97.9]) Surgeons: Melinda Guidry MD Responsible Provider: Shukri Nicholson MD Anesthesia Type: MAC ASA Status: 2 Anesthesia Type: MAC Last Vitals Vitals Value Taken Time BP 110/60 11/25/24 1246 Temp 36.2 ?C (97.2 ?F) 11/25/24 1134 Pulse 56 11/25/24 1246 Resp 16 11/25/24 1246 SpO2 99 % 11/25/24 1246 Post Anesthesia Patient Status Patient Evaluation: PACU. PACU/ICU Patient Condition: stable. Anticipated Disposition: phase 2 then home. Neurological Status: aware and responsive. Pulmonary Status: breathing comfortably on room air Airway Control: returned to baseline unsupported. Cardiovascular Status: stable. Pain Management: clinically adequate Postoperative Hydration: acceptable. Intraoperative Events: no significant anesthesia events Post Operative Nausea/Vomiting Status: no significant post operative nausea or vomiting Recommendation: continue current plan of care. Anesthesia Observations No Documentation SIGNATURE: Shukri Nicholson MD PATIENT NAME: Debra March DATE: November 25, 2024 TIME: 1:40 PM CSN: [id number] Normal [facility] ANES PRE-OPon 11-25-2024 ANES PRE-OP HNO ID: [id number] Author: SHUKRI NICHOLSON MD Service: Anesthesiology Author Type: Anesthesiologist Type: Anesthesia Preprocedure Evaluation Filed: 11/25/2024 10:44 Note Text: ANESTHESIOLOGY DAY OF SURGERY NOTE : 1985 Procedure Information Date/Time: 11/25/24 1048 Procedure: FOLLICLE PUNCTURE FOR OOCYTE RETRIEVAL Location: [address] Surgeons: Melinda Guidry MD Estimated body mass index is 32.82 kg/m? as calculated from the following: Height as of this encounter: 157.5 cm (5' 2"). Weight as of this encounter: 81.4 kg (179 lb 7.3 oz). Most recent hematocrit and potassium results: Hematocrit 41.6 09/09/2024 Potassium 4.3 09/09/2024 Relevant Problems CARDIO (+) Intractable migraine without status migrainosus NEURO-PSYCH (+) Intractable migraine without status migrainosus Genetics/Metabolics (+) 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 Other (+) Class 1 obesity with body mass index (BMI) of 32.0 to 32.9 in adult I - PHYSICAL EVALUATION AIRWAY Patient intubated: No. Tracheostomy tube not present Mallampati: II. TM distance: <3 FB. Neck ROM: full ROM without neurological symptoms. Mouth opening: adequate. Short neck: no. Thick neck: yes DENTAL Dental findings: teeth intact. Additional exam findings: yes. CARDIOVASCULAR Rhythm: regular Rate: normal PULMONARY Breath sounds clear to auscultation. II - ANESTHESIA PLAN ASA Score: 2 Anesthetic Plan: MAC NPO Status: adequate Beta Pao Monitoring Plan Monitoring plan: standard ASA. Post Procedure Analgesic Plan Postoperative analgesic plan: multimodal analgesia. Informed Consent Anesthetic risks, benefits, alternatives, personnel and consent discussed: yes. Patient / Responsible Green Party agrees to proceed: yes Patient / Surrogate agrees to blood products: blood products not planned Significant changes in the patient condition since the History and Physical, not otherwise documented in primary service progress note: no. Potential Anesthesia issues that may suggest increased risk of complications or contraindication to planned procedure: none. Vitals Value Taken Time BP 112/79 11/25/24 1026 Pulse 74 11/25/24 1026 Resp 16 11/25/24 1026 Temp 36.5 ?C (97.7 ?F) 11/25/24 1026 SpO2 100 % 11/25/24 1026 Facility-Administered Medications as of 11/25/2024 Medication Dose Route Frequency lactated ringers iv infusion 5-30 mL/hr INTRAVENOUS CONTINUOUS Outpatient Medications as of 11/25/2024 Medication Sig Ganirelix Acetate 250 mcg/0.5 mL Inject 1 syringe daily subcutaneous before 8am. Inject same time each day Follitropin Beta (FOLLISTIM AQ) 300 unit/0.36 mL Inject 250 Units subcutaneously once daily. leuprolide (LUPRON) 1 mg/0.2 mL Inject 80 units subcutaneous once as directed for Lupron trigger chorionic gonadotropin (PREGNYL) 10,000 unit solr 10,000 Units as directed for 1 dose. Mix vials as directed per nursing in office. Administer subcutaneous. Needle, Disp, 27 G (BD DISPOSABLE NEEDLES) 27 gauge x 1/2" ndle To be used to inject HCG trigger Syringe with Needle, Disp, (SYRINGE 3CC/20GX1") 3 mL 20 gauge x 1" To be used to mix, draw up and inject HCG trigger ubrogepant (UBRELVY) 100 mg tablet Take 1 tablet by mouth as needed at onset of migraine. May repeat dose at 2 hours if needed. Max 200 mg per 24 hours. I have interviewed and examined the patient. I have reviewed the medical record and/or the pre-anesthesia evaluation, pertinent labs, and test results. This contains updated information obtained within 48 hours of Surgery/Procedure. SIGNATURE: Shukri Nicholson MD PATIENT NAME: Debra March DATE: November 25, 2024 TIME: 10:43 AM CSN: [id number] [facility] CNOVon 11-25-2024 CNOV Office Visit (ANDRBE ) DEBRA MARCH ([id number]) 1985 F Date Time Provider Department 11/25/24 11:00 AM ANDROLOGY CIVIL ENGINEERING MANAGER EVANGELISTAOchoa During your visit today, we recorded the following information about you: Gabe Sood IVF Tech 11/25/2024 1:31 PM Signed Retrieval procedure performed. Detailed notes can be found in the paper chart in the [facility]- LOGISTICS OPERATIONS MANAGER Office. Gabe Sood IVF Pascual Referring Provider: EDER SYKES [[id number]] Allergies As of Date: 11/25/2024 Noted Allergy Reaction AMOXICILLIN 12/18/2014 2 - Rash CEFTIN (CEFUROXIME AXETIL) 12/18/2014 8 - GI Upset Comments: Vomiting and diarrhea ILOSONE 12/18/2014 2 - Rash NALDECON 03/30/2021 14 - Other: See Comments PENICILLIN 12/18/2014 2 - Rash PHENYLEPHRINE 03/30/2021 14 - Other: See Comments Comments: hallucinations [id number] 03/30/2021 14 - Other: See Comments Comments: hallucinations PSEUDOEPHEDRINE 03/30/2021 14 - Other: See Comments Comments: hallucinations RED DYE 03/30/2021 14 - Other: See Comments Comments: hallucinations Date Reviewed: 11/25/2024 Reviewed by: Aline Woodruff, MYRNA - Fully Assessed Primary Visit Diagnosis: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 May repeat dose at 2 hours if needed. Max 200 mg per 24 hours. Problem List As Of Date 11/25/2024 Noted Resolved Intractable migraine without status migrainosus*05/10/2016 Mixed hypercholesterolemia and hypertriglycerid*05/21/2015 Factor 5 Leiden mutation, heterozygous (HCC) [D* Chest pain [R07.9] 04/02/2021 11/18/2024 Palpitations [R00.2] 04/02/2021 11/18/2024 Herniated intervertebral disc of lumbar spine [*08/19/2021 11/18/2024 Lumbosacral radiculopathy at L5 [M54.17] 08/19/2021 11/18/2024 Acute back pain [M54.9] 02/07/2022 11/18/2024 Well adult exam [Z00.00] 02/07/2022 11/18/2024 Pre-menstrual mood disorder [F32.81] 02/07/2022 Miscarriage [O03.9] 02/05/2023 Class 1 obesity with body mass index (BMI) of 3*07/21/2023 Situational anxiety [F41.8] 03/15/2024 Acute reaction to situational stress [F43.0] 03/15/2024 11/18/2024 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 Author Type: Physician Sensitizer Type: ED Provider Notes Filed: 11/25/2024 08:16 Note Text: ED Provider Note Patient Name: Debra March : 1985 SERVICE DATE: 11/25/24 History Patient presents with: Leg Cramps: Pt presents with cramp to L calf, concerned for blood clot. Has factor 5, doing IVF supposed to have egg retrieval today but concerned she has a clot. No hx blood clots HPI This is a 39 year old female who presents to the ED with lower extremity cramping. The onset was this morning. The course/duration of symptoms is constant and mild. Type of injury: none. The character of symptoms is pain . The relieving factor is recent IVF and blood clot disease. No history of DVT not currently anticoagulated. Has been anticoagulated for the past. currently trying to get going through IVF and has a harvesting this morning. Denies any fever, chills, shortness of breath, nausea, vomiting, abdominal pain, or chest pain and has been tolerating a diet. Nursing notes reviewed. Initial vital signs reviewed. Review of Systems Constitutional symptoms: No fever, no chills, no fatigue. Skin symptoms: No rash, no abrasions. Eye symptoms: No recent vision problems, no pain, no discharge. ENMT symptoms: No ear pain, no sore throat, no nasal congestion. Respiratory symptoms: No shortness of breath, no cough, no croup. Cardiovascular symptoms: No chest pain, no palpitations. Gastrointestinal symptoms: No abdominal pain, no nausea, no vomiting, no diarrhea, no constipation. Genitourinary symptoms: No dysuria, no hematuria. Musculoskeletal symptoms: Negative except as documented in HPI, No back pain, Neurologic symptoms: No headache, Endocrine symptoms: No polyuria, Hematologic/Lymphatic symptoms: Negative except as documented in HPI. Allergy/immunologic symptoms: Negative except as documented in HPI. Physical Examination General: Alert, no acute distress. Skin: Warm, dry. Head: Normocephalic, atraumatic. Neck: Supple, trachea midline. Eye: Pupils are equal, round and reactive to light, extraocular movements are intact, normal conjunctiva. Ears, nose, mouth and throat: Oral mucosa moist. Cardiovascular: Regular rate and rhythm, No murmur. Respiratory: Lungs are clear to auscultation, respirations are non-labored. Chest wall: No deformity. Musculoskeletal: Normal ROM, mild tenderness to the back of the left calf without swelling redness or temperature change Peripheral pulses are palpable. Neurovascularly intact distally. Capillary refill is less than 2 seconds. Neurological: No focal neurological deficit observed. Lymphatics: No lymphadenopathy. Psychiatric: Cooperative, appropriate mood AND affect. Diagnostic Testing ED Labs Ordered and Reviewed - No data to display No orders to display Procedures: Procedures Medications received in ED Medications - No data to display Discharge Medications New Prescriptions No medications on file ED Course / Clinical Impression Clinical Impressions as of 11/25/24 0815 Leg cramping Pain of left lower extremity MDM / Disposition / Plan Medical Decision Making Differential Diagnosis: Deep vein thrombosis, superficial thrombophlebitis, cellulitis, contusion, muscle cramp. Rationale: Patient presents today with left leg cramping history of blood clotting disorder and currently undergoing IVF. no recent injury or trauma not anticoagulated at this time. Ultrasound initiated from triage Ultrasound negative for DVT most likely cramping in the form of the process recommend follow-up with her doctor return if symptoms worsen. The case was discussed and reviewed in its entirely with my attending physician Dr. Wheeler. All questions answered. Counseled: Patient, Regarding diagnosis, Regarding diagnostic results, Regarding treatment plan, Regarding prescription, Patient indicated understanding of instructions. Independent review of external/pertinent past medical records reviewed: N/A SIGNATURE: AMINA Parmar This document has been created with the use of voice recognition technology. Every effort was taken to correct for errors however it may contain inaccuracies, misspellings, syntax errors, or word sense that escaped review. Please inquire further with the author for clarification if needed. HERIBERTO SETHI 11/25/24 0816 [facility] ED Triage Noteon 11-25-2024 ED Triage Note HNO ID: [id number] Author: AMBROSE HERNANDEZ PA-C Service: ? Author Type: Physician Sensitizer Type: ED Triage Notes Filed: 11/25/2024 05:07 Note Text: ED TRIAGE PROVIDER NOTE Patient Name: Debra March Service Date: 11/25/24 BRIEF HPI: This is a 39 year old female who presents to the ED with: Cramping in her left leg upon awakening today. She reports heterozygous to factor V Leiden, currently undergoing IVF and scheduled to have egg retrieval today at 10 AM. She has not had any previous personal history of blood clots but was on Lovenox for her last and reports that her mother had life-threatening leg clot before. She denies chest pain or shortness of breath. Denies any lower extremity swelling. BRIEF EXAM: NAD Awake and Alert Non labored breathing No focal neurological deficits INITIAL WORKUP AND DECISION MAKING: Orders Placed This Encounter No orders of the defined types were placed in this encounter. Discussed with the patient the vascular lab does not open until 7 AM. Did offer to order the duplex study to be done once vascular gets here this morning versus ordering next a duplex study for her to schedule for later today after her appointment. She prefers to wait to have it done early this morning. Order has been placed for duplex ultrasound. SIGNATURE: Ambrose Hernandez PA-C [facility] OPERATIVE NOon 11-25-2024 OPERATIVE NO HNO ID: [id number] Author: MELINDA GUIDRY MD Service: Reproductive Endocrinology Author Type: Physician Type: Operative Report Filed: 11/25/2024 11:27 Note Text: WHI ALICE RETRIEVAL PROCEDURE NOTE Patient Name: Debra March Log ID: [id number] Surgery/Procedure Date: 11/25/2024 Incisional/Procedure Start time: 11:14 AM Incisional/Procedure End time: 11:26 am Primary Surgeon: Melinda Guidry MD Assistants: Not applicable Procedure: Real-time ultrasound guidance was used in oocyte retrieval. Probe was removed upon completion of procedure oocyte retrieval. Pre-operative Diagnosis: Infertility Post-operative Diagnosis: Infertility Anesthesia: -IV Sedation: Fentanyl, Versed, and Propofol -Other: Not applicable -Complications: Not applicable Description of Procedure Findings: Right Ovary: Access: Yes Specimens removed: Oocytes: 16 Left Ovary: Access: Yes Specimens removed: Oocytes: 14 Total: 30 Needle:Single Lumen Endometrium Thicknesses: mm 3 layers: Complications: no Excess intraperitoneal fluid: yes Excess vaginal bleeding: no Estimated Blood Loss: Not applicable Participation: I/primary surgeon/proceduralist performed the entire procedure. Melinda Guidry MD Normal [facility] LEG VEIN DVT UNL VAS LABo n 11-25-2024 US LEG VEIN DVT UNL VAS LAB Non-Invasive Vascular Laboratory [facility] Lower Extremity Venous Duplex Unilateral - Left Date of service/time: 11/25/2024 7:17:38 AM Name: DEBRA MARCH Date of : 1985 Age: 39 years Gender: F Clinical Indication Left leg pain. TECHNIQUE -------- A venous duplex ultrasound examination was performed, including grayscale imaging with compression maneuvers and color Doppler and spectral Doppler examination with augmentation maneuvers and response to respiration of the below mentioned veins. FINDINGS -------- RIGHT SIDE Common femoral vein Doppler: normal flow. Compression: normal. LEFT SIDE Distal external iliac vein Doppler: normal flow. Compression: normal. Common femoral vein Doppler: normal flow. Compression: normal. Femoral vein Doppler: normal flow. Compression: normal. Popliteal vein Doppler: normal flow. Compression: normal. Posterior tibial veins Compression: normal. Peroneal veins Compression: normal. Great saphenous vein Compression: normal. Small saphenous vein Compression: normal. Soleal vein Compression: normal. Gastrocnemius vein Compression: normal. Profunda vein Doppler: normal flow. Compression: normal. IMPRESSION RIGHT SIDE - DEEP VEINS Negative for acute deep vein thrombosis in the common femoral vein. LEFT SIDE - DEEP VEINS Negative for acute deep vein thrombosis. LEFT SIDE - SUPERFICIAL VEINS Negative for superficial thrombophlebitis in the great saphenous vein and small saphenous vein. Technologist: Amalia Daniels Ordering physician: AMBROSE HERNANDEZ Interpreting physician: Jc Grubbs MD Final CC [employer] Image : [id number] See Link below for Image Normal [facility] B-HCG SerPl-aCncon 5 HCG.beta subunit Qn 49.2 m[IU]/mL High <5.0 [facility] Comment on above: Order Comment: Speci men Type: BLOOD SPECIMEN Ordering Facility: [facility] Address: [address] [place] [address] Result Comment: MARITZA TITATIVE HCG NORMAL RANGES Weeks of Gestation (Weeks Since LMP) 3 Weeks (5.8-71.2 mIU/mL) 4 Weeks (9.5-750 mIU/mL) 5 Weeks (217-7138 mIU/mL) 6 Weeks (158-24165 mIU/mL) 7 Weeks (3697-463022 mIU/mL) 8 Weeks (81238-469320 mIU/mL) 9 Weeks (65749-632514 mIU/mL) 10 Weeks (76755-455705 mIU/mL) 12 Weeks (70992-052727 mIU/mL) Referenced to 4th IS of [facility] Performed By: #### 5 5454-3 #### [facility] CLIA [id number] [address] [place] [address] [place] CNPDorota 11-24-2024 CNPN Telephone (FAMPWS) JOAQUIMDEBRA López ([id number]) 1985 F Date Time Provider Department 11/24/24 FERMIN FIELD During your visit today, we recorded the following information about you: Lety Rockwell LPN 11/24/2024 10:33 AM Signed Pt had an appt 10/17 with provider and was prescribed phentermine 37.5 mg. Pt reports tomorrow she is scheduled for embryo retrieval surgery. Pt is asking if it is ok for her to start phentermine after the retrieval. Pt reports she has not started medication yet. Pt reports she is not planning on implantation at this time. Please review and advise. Lety Rockwell LPN Allergies As of Date: 11/24/2024 Noted Allergy Reaction AMOXICILLIN 12/18/2014 2 - Rash CEFTIN (CEFUROXIME AXETIL) 12/18/2014 8 - GI Upset Comments: Vomiting and diarrhea ILOSONE 12/18/2014 2 - Rash NALDECON 03/30/2021 14 - Other: See Comments PENICILLIN 12/18/2014 2 - Rash PHENYLEPHRINE 03/30/2021 14 - Other: See Comments Comments: hallucinations [id number] 03/30/2021 14 - Other: See Comments Comments: hallucinations PSEUDOEPHEDRINE 03/30/2021 14 - Other: See Comments Comments: hallucinations RED DYE 03/30/2021 14 - Other: See Comments Comments: hallucinations Date Reviewed: 11/18/2024 Reviewed by: Duncan Guadalupe APRN.UTILITY WORKER FILM PROCESSING - Fully Assessed Reason for Visit: Medication Question [1478] Prescriptions as of 11/24/2024 - Ganirelix Acetate 250 mcg/0.5 mL Inject 1 syringe daily subcutaneous before 8am. Inject same time each day - Follitropin Beta (FOLLISTIM AQ) 300 unit/0.36 mL Inject 250 Units subcutaneously once daily. - leuprolide (LUPRON) 1 mg/0.2 mL Inject 80 units subcutaneous once as directed for Lupron trigger - chorionic gonadotropin (PREGNYL) 10,000 unit solr 10,000 Units as directed for 1 dose. Mix vials as directed per nursing in office. Administer subcutaneous. - Needle, Disp, 27 G (BD DISPOSABLE NEEDLES) 27 gauge x 1/2" ndle To be used to inject HCG trigger - Syringe with Needle, Disp, (SYRINGE 3CC/20GX1") 3 mL 20 gauge x 1" To be used to mix, draw up and inject HCG trigger - ubrogepant (UBRELVY) 100 mg tablet Take 1 tablet by mouth as needed at onset of migraine. May repeat dose at 2 hours if needed. Max 200 mg per 24 hours. Problem List As Of Date 11/24/2024 Noted Resolved Intractable migraine without status migrainosus*05/10/2016 Mixed hypercholesterolemia and hypertriglycerid*05/21/2015 Factor 5 Leiden mutation, heterozygous (HCC) [D* Chest pain [R07.9] 04/02/2021 11/18/2024 Palpitations [R00.2] 04/02/2021 11/18/2024 Herniated intervertebral disc of lumbar spine [*08/19/2021 11/18/2024 Lumbosacral radiculopathy at L5 [M54.17] 08/19/2021 11/18/2024 Acute back pain [M54.9] 02/07/2022 11/18/2024 Well adult exam [Z00.00] 02/07/2022 11/18/2024 Pre-menstrual mood disorder [F32.81] 02/07/2022 Miscarriage [O03.9] 02/05/2023 Class 1 obesity with body mass index (BMI) of 3*07/21/2023 Situational anxiety [F41.8] 03/15/2024 Acute reaction to situational stress [F43.0] 03/15/2024 11/18/2024 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* Encounter Status:Closed by FERMIN FIELD on 11/24/24 Normal [facility] Estradiol SerPl-mCncon 11-24 E2 [Mass/Vol] 2188 pg/mL Normal See comment [facility] Comment on above: Order Comment: Speci men Type: BLOOD SPECIMEN Ordering Facility: [facility] Address: [address] [place] [address] Result Comment: Adul t Female Menstrual cycle: Follicular: <90 pg/mL Ovulation: 60-533 pg/mL Luteal: <232 pg/mL Adult Female : First Trimester: 154-3243 pg/mL Second Trimester: 1561-69523 pg/mL Third Trimester: 8525->35151 pg/mL Adult Female Post Menopausal: <138 pg/mL Performed By: #### 5 5454-3 #### [facility] CLIA [id number] [address] [place] [address] [place] LH SerPl-aCncon 11-24-2024 Lutropin Qn 56.2 m[IU]/mL Normal See comment [facility] Comment on above: Order Comment: [place] Type: BLOOD SPECIMEN Ordering Facility: [facility] Address: [address] [place] [address] Result Comment: Refe rence range: Follicular: 2.4-12.6 mIU/mL Midcycle: 14.0-95.6 mIU/mL Luteal: 1.0-11.4 mIU/mL [place]: 7.7-58.5 mIU/mL Performed By: #### 7 3752-8, 70074-9 #### [facility] CLIA [id number] [address] [place] [address] [place] Progest SerPl-mCncon 025 Progesterone [Mass/Vol] 7.2 ng/mL Normal See comment [facility] Comment on above: Order Comment: [place] Type: BLOOD SPECIMEN Ordering Facility: [facility] Address: [address] [place] [address] Result Comment: Mens trual Cycle Progesterone Reference Ranges: Follicular: <0.2 ng/mL Ovulation: 0.1 - 4.1 ng/mL Luteal: 4.1 - 14.5 ng/mL. Progesterone Reference Ranges vary by gestational period: First Trimester: 11.0 - 44.3 ng/mL Second Trimester: 25.4 - 83.4 ng/mL Third Trimester: 58.7 - 214.0 ng/mL Post menopausal Progesterone: <0.1 ng/mL Performed By: #### 7 3752-8, 19883-5 #### [facility] CLIA [id number] [address] [place], [place] [address] [address] [place] Estradiol SerPl-mCncon 11-23 E2 [Mass/Vol] 2358 pg/mL Normal [facility] Comment on above: Order Comment: Speci men Type: BLOOD SPECIMENOrdering Facility: [facility] Address: [address] [place] [address] Result Comment: This test is not suitable for patients receiving treatment with the drug Fulvestrant (Faslodex). The drug causes an interference leading to falsely elevated estradiol results. Menstrual cycle Estradiol reference ranges: Follicular : < 234 pg/mL Ovulation : 41 to 398 pg/mL Luteal : < 342 pg/mL Estradiol reference ranges vary by gestational period: First trimester : 154 to 3243 pg/mL Second trimester : 1561 to 93057 pg/mL Third trimester : 8285 to >63472 pg/mL Post-menopausal Estradiol reference range: < 41 pg/mL Reference: 1. Estradiol - E2 (Estradiol III) [package insert V 3.0 Swedish]. [employer] [facility], [place], [place], October 2015. Performed By: #### 2 243-4, 2839-9 ####[facility] [id number] [place] [id number] [place] Follicle Diameter USon 11-23 Indication Follicle monitoring Impression Right Ovary: Follicle(s): 1. Size 17.9 mm x 9.3 mm. Mean 13.6 mm. Vol 0.809 cm 2. Size 16.4 mm x 14.9 mm. Mean 15.7 mm. Vol 1.902 cm 3. Size 16.0 mm x 11.9 mm. Mean 13.9 mm. Vol 1.183 cm 4. Size 15.1 mm x 13.2 mm. Mean 14.2 mm. Vol 1.382 cm 5. Size 17.5 mm x 16.2 mm. Mean 16.9 mm. Vol 2.410 cm 6. Size 13.8 mm x 15.4 mm. Mean 14.6 mm. Vol 1.529 cm 7. Size 17.7 mm x 14.6 mm. Mean 16.2 mm. Vol 1.986 cm 8. Size 16.0 mm x 13.2 mm. Mean 14.6 mm. Vol 1.467 cm 9. Size 16.8 mm x 15.5 mm. Mean 16.2 mm. Vol 2.112 cm 10. Size 16.2 mm x 13.0 mm. Mean 14.6 mm. Vol 1.426 cm 11. Size 20.6 mm x 21.0 mm. Mean 20.8 mm. Vol 4.635 cm 12. Size 19.9 mm x 17.0 mm. Mean 18.4 mm. Vol 2.997 cm 13. Size 15.5 mm x 13.1 mm. Mean 14.3 mm. Vol 1.398 cm 14. Size 19.1 mm x 15.1 mm. Mean 17.1 mm. Vol 2.284 cm 10-15 antral follicles < 10 mm Left Ovary: Follicle(s): 1. Size 17.0 mm x 13.3 mm. Mean 15.1 mm. Vol 1.574 cm 2. Size 16.5 mm x 12.0 mm. Mean 14.2 mm. Vol 1.244 cm 3. Size 15.4 mm x 12.4 mm. Mean 13.9 mm. Vol 1.237 cm 4. Size 14.6 mm x 13.1 mm. Mean 13.9 mm. Vol 1.314 cm 5. Size 13.2 mm x 11.4 mm. Mean 12.3 mm. Vol 0.900 cm 6. Size 14.0 mm x 11.9 mm. Mean 13.0 mm. Vol 1.037 cm 7. Size 16.6 mm x 13.5 mm. Mean 15.1 mm. Vol 1.584 cm 8. Size 12.8 mm x 12.6 mm. Mean 12.7 mm. Vol 1.069 cm 9. Size 13.7 mm x 11.8 mm. Mean 12.8 mm. Vol 1.006 cm 10. Size 16.8 mm x 12.8 mm. Mean 14.8 mm. Vol 1.444 cm 11. Size 30.1 mm x 12.7 mm. Mean 21.4 mm. Vol 2.532 cm 12. Size 14.0 mm x 12.0 mm. Mean 13.0 mm. Vol 1.062 cm 7-10 antral follicles < 10 mm Recommendations Follow up as clinically indicated. Method Transvaginal ultrasound examination. 3D ultrasound examination Uterus Uterus: Visualized Uterus position: retroverted Endometrium: Trilayered. Endometrial thickness, total 11.5 mm Right Ovary Rt ovary: Visualized Rt ovarian follicle(s): Follicles identified Rt ovarian follicle D1 17.9 mm Rt ovarian follicle D2 9.3 mm Rt ovarian follicle mean 13.6 mm Rt ovarian follicle vol 0.809 cm Rt ovarian follicle D1 16.4 mm Rt ovarian follicle D2 14.9 mm Rt ovarian follicle mean 15.7 mm Rt ovarian follicle vol 1.902 cm Rt ovarian follicle D1 16.0 mm Rt ovarian follicle D2 11.9 mm Rt ovarian follicle mean 13.9 mm Rt ovarian follicle vol 1.183 cm Rt ovarian follicle D1 15.1 mm Rt ovarian follicle D2 13.2 mm Rt ovarian follicle mean 14.2 mm Rt ovarian follicle vol 1.382 cm Rt ovarian follicle D1 17.5 mm Rt ovarian follicle D2 16.2 mm Rt ovarian follicle mean 16.9 mm Rt ovarian follicle vol 2.410 cm Rt ovarian follicle D1 13.8 mm Rt ovarian follicle D2 15.4 mm Rt ovarian follicle mean 14.6 mm Rt ovarian follicle vol 1.529 cm Rt ovarian follicle D1 17.7 mm Rt ovarian follicle D2 14.6 mm Rt ovarian follicle mean 16.2 mm Rt ovarian follicle vol 1.986 cm Rt ovarian follicle D1 16.0 mm Rt ovarian follicle D2 13.2 mm Rt ovarian follicle mean 14.6 mm Rt ovarian follicle vol 1.467 cm Rt ovarian follicle D1 16.8 mm Rt ovarian follicle D2 15.5 mm Rt ovarian follicle mean 16.2 mm Rt ovarian follicle vol 2.112 cm Rt ovarian follicle D1 16.2 mm Rt ovarian follicle D2 13.0 mm Rt ovarian follicle mean 14.6 mm Rt ovarian follicle vol 1.426 cm Rt ovarian follicle D1 20.6 mm Rt ovarian follicle D2 21.0 mm Rt ovarian follicle mean 20.8 mm Rt ovarian follicle vol 4.635 cm Rt ovarian follicle D1 19.9 mm Rt ovarian follicle D2 17.0 mm Rt ovarian follicle mean 18.4 mm Rt ovarian follicle vol 2.997 cm Rt ovarian follicle D1 15.5 mm Rt ovarian follicle D2 13.1 mm Rt ovarian follicle mean 14.3 mm Rt ovarian follicle vol 1.398 cm Rt ovarian follicle D1 19.1 mm Rt ovarian follicle D2 15.1 mm Rt ovarian follicle mean 17.1 mm Rt ovarian follicle vol 2.284 cm Rt ovarian follicles other findings: 10-15 antral follicles < 10 mm Left Ovary Lt ovary: Visualized Lt ovarian follicle(s): Follicles identified Lt ovarian follicle D1 17.0 mm Lt ovarian follicle D2 13.3 mm Lt ovarian follicle mean 15.1 mm Lt ovarian follicle vol 1.574 cm Lt ovarian follicle D1 16.5 mm Lt ovarian follicle D2 12.0 mm Lt ovarian follicle mean 14.2 mm Lt ovarian follicle vol 1.244 cm Lt ovarian follicle D1 15.4 mm Lt ovarian follicle D2 12.4 mm Lt ovarian follicle mean 13.9 mm Lt ovarian follicle vol 1.237 cm Lt ovarian follicle D1 14.6 mm Lt ovarian follicle D2 13.1 mm Lt ovarian follicle mean 13.9 mm Lt ovarian follicle vol 1.314 cm Lt ovarian follicle D1 13.2 mm Lt ovarian follicle D2 11.4 mm Lt ovarian follicle mean 12.3 mm Lt ovarian follicle vol 0.900 cm Lt ovarian follicle D1 14.0 mm Lt ovarian follicle D2 11.9 mm Lt ovarian follicle mean 13.0 mm Lt ovarian follicle vol 1.037 cm Lt ovarian follicle D1 16.6 mm Lt ovarian follicle D2 13.5 mm Lt ovarian follicle mean 15 (more content not included)... MATERNAL MEDICINE [facility] Radiology Study observation (narrative) [facility] Progest Lucia 025 Progesterone [Mass/Vol] 1.0 ng/mL Normal See comment [facility] Comment on above: Order Comment: Speci men Type: BLOOD SPECIMENOrdering Facility: [facility] Address: [address] [place], [place] [id number] Result Comment: Mens trual Cycle Progesterone Reference Ranges: Follicular: <1.0 ng/mL Ovulation: <12.1 ng/mL Luteal: 1.8 to 23.9 ng/mL. Progesterone Reference Ranges vary by gestational period: First Trimester: 11.0 to 44.3 ng/mL Second Trimester: 25.4 to 83.3 ng/mL Third Trimester: 58.7 to 214 ng/mL Post menopausal Progesterone: <0.5 ng/mL Reference: 1. Progesterone (Progesterone III) [package insert V 1.0 Swedish]. [facility], [place], [place]. February 2015. Performed By: #### 2 243-4, 2839-9 ####[facility] LABCLIA [id number] [place] [address] [place] Estradiol SerPl-mCncon 11-22 E2 [Mass/Vol] 1776 pg/mL Normal [facility] Comment on above: Order Comment: Speci men Type: BLOOD SPECIMENOrdering Facility: [facility] Address: [facility] [address] Result Comment: This test is not suitable for patients receiving treatment with the drug Fulvestrant (Faslodex). The drug causes an interference leading to falsely elevated estradiol results. Menstrual cycle Estradiol reference ranges: Follicular : < 234 pg/mL Ovulation : 41 to 398 pg/mL Luteal : < 342 pg/mL Estradiol reference ranges vary by gestational period: First trimester : 154 to 3243 pg/mL Second trimester : 1561 to 41654 pg/mL Third trimester : 8285 to >08339 pg/mL Post-menopausal Estradiol reference range: < 41 pg/mL Reference: 1. Estradiol - E2 (Estradiol III) [package insert V 3.0 Swedish]. [facility], [place], [place], October 2015. Performed By: #### 2 243-4, 2839-9 ####[facility] LABCLIA [id number] [place] [address] [place] Follicle Diameter USon 11-22 Indication Follicle monitoring Impression Right Ovary: Follicle(s): 1. Size 14.4 mm x 10.7 mm. Mean 12.5 mm. Vol 0.858 cm 2. Size 13.2 mm x 11.3 mm. Mean 12.2 mm. Vol 0.872 cm 3. Size 11.9 mm x 9.5 mm. Mean 10.7 mm. Vol 0.562 cm 4. Size 11.9 mm x 7.2 mm. Mean 9.6 mm. Vol 0.325 cm 5. Size 20.6 mm x 14.3 mm. Mean 17.4 mm. Vol 2.193 cm 6. Size 12.8 mm x 11.0 mm. Mean 11.9 mm. Vol 0.806 cm 7. Size 16.6 mm x 8.6 mm. Mean 12.6 mm. Vol 0.645 cm 8. Size 16.7 mm x 14.6 mm. Mean 15.6 mm. Vol 1.849 cm 9. Size 15.1 mm x 10.8 mm. Mean 13.0 mm. Vol 0.927 cm 10. Size 15.4 mm x 9.8 mm. Mean 12.6 mm. Vol 0.768 cm 11. Size 15.0 mm x 12.2 mm. Mean 13.6 mm. Vol 1.174 cm 12. Size 13.0 mm x 9.2 mm. Mean 11.1 mm. Vol 0.581 cm 13. Size 14.3 mm x 13.0 mm. Mean 13.7 mm. Vol 1.270 cm 14. Size 10.9 mm x 9.4 mm. Mean 10.1 mm. Vol 0.500 cm 10 antral follicles < 10 mm Left Ovary: Follicle(s): 1. Size 10.1 mm x 9.6 mm. Mean 9.8 mm. Vol 0.483 cm 2. Size 13.9 mm x 10.8 mm. Mean 12.4 mm. Vol 0.852 cm 3. Size 13.2 mm x 12.6 mm. Mean 12.9 mm. Vol 1.091 cm 4. Size 16.1 mm x 11.1 mm. Mean 13.6 mm. Vol 1.039 cm 5. Size 11.8 mm x 11.9 mm. Mean 11.8 mm. Vol 0.857 cm 6. Size 14.7 mm x 10.4 mm. Mean 12.5 mm. Vol 0.829 cm 7. Size 21.5 mm x 11.9 mm. Mean 16.7 mm. Vol 1.598 cm 8. Size 15.0 mm x 13.9 mm. Mean 14.4 mm. Vol 1.509 cm 9. Size 14.2 mm x 12.9 mm. Mean 13.5 mm. Vol 1.235 cm 17 antral follicles < 10 mm Recommendations Follow up as clinically indicated. Method Transvaginal ultrasound examination. 3D ultrasound examination Uterus Uterus: Visualized Uterus position: retroverted Endometrium: three-layer pattern Endometrial thickness, total 9.2 mm Right Ovary Rt ovary: Visualized Rt ovarian follicle(s): Follicles identified Rt ovarian follicle D1 14.4 mm Rt ovarian follicle D2 10.7 mm Rt ovarian follicle mean 12.5 mm Rt ovarian follicle vol 0.858 cm Rt ovarian follicle D1 13.2 mm Rt ovarian follicle D2 11.3 mm Rt ovarian follicle mean 12.2 mm Rt ovarian follicle vol 0.872 cm Rt ovarian follicle D1 11.9 mm Rt ovarian follicle D2 9.5 mm Rt ovarian follicle mean 10.7 mm Rt ovarian follicle vol 0.562 cm Rt ovarian follicle D1 11.9 mm Rt ovarian follicle D2 7.2 mm Rt ovarian follicle mean 9.6 mm Rt ovarian follicle vol 0.325 cm Rt ovarian follicle D1 20.6 mm Rt ovarian follicle D2 14.3 mm Rt ovarian follicle mean 17.4 mm Rt ovarian follicle vol 2.193 cm Rt ovarian follicle D1 12.8 mm Rt ovarian follicle D2 11.0 mm Rt ovarian follicle mean 11.9 mm Rt ovarian follicle vol 0.806 cm Rt ovarian follicle D1 16.6 mm Rt ovarian follicle D2 8.6 mm Rt ovarian follicle mean 12.6 mm Rt ovarian follicle vol 0.645 cm Rt ovarian follicle D1 16.7 mm Rt ovarian follicle D2 14.6 mm Rt ovarian follicle mean 15.6 mm Rt ovarian follicle vol 1.849 cm Rt ovarian follicle D1 15.1 mm Rt ovarian follicle D2 10.8 mm Rt ovarian follicle mean 13.0 mm Rt ovarian follicle vol 0.927 cm Rt ovarian follicle D1 15.4 mm Rt ovarian follicle D2 9.8 mm Rt ovarian follicle mean 12.6 mm Rt ovarian follicle vol 0.768 cm Rt ovarian follicle D1 15.0 mm Rt ovarian follicle D2 12.2 mm Rt ovarian follicle mean 13.6 mm Rt ovarian follicle vol 1.174 cm Rt ovarian follicle D1 13.0 mm Rt ovarian follicle D2 9.2 mm Rt ovarian follicle mean 11.1 mm Rt ovarian follicle vol 0.581 cm Rt ovarian follicle D1 14.3 mm Rt ovarian follicle D2 13.0 mm Rt ovarian follicle mean 13.7 mm Rt ovarian follicle vol 1.270 cm Rt ovarian follicle D1 10.9 mm Rt ovarian follicle D2 9.4 mm Rt ovarian follicle mean 10.1 mm Rt ovarian follicle vol 0.500 cm Rt ovarian follicles other findings: 10 antral follicles < 10 mm Left Ovary Lt ovary: Visualized Lt ovarian follicle(s): Follicles identified Lt ovarian follicle D1 10.1 mm Lt ovarian follicle D2 9.6 mm Lt ovarian follicle mean 9.8 mm Lt ovarian follicle vol 0.483 cm Lt ovarian follicle D1 13.9 mm Lt ovarian follicle D2 10.8 mm Lt ovarian follicle mean 12.4 mm Lt ovarian follicle vol 0.852 cm Lt ovarian follicle D1 13.2 mm Lt ovarian follicle D2 12.6 mm Lt ovarian follicle mean 12.9 mm Lt ovarian follicle vol 1.091 cm Lt ovarian follicle D1 16.1 mm Lt ovarian follicle D2 11.1 mm Lt ovarian follicle mean 13.6 mm Lt ovarian follicle vol 1.039 cm Lt ovarian follicle D1 11.8 mm Lt ovarian follicle D2 11.9 mm Lt ovarian follicle mean 11.8 mm Lt ovarian follicle vol 0.857 cm Lt ovarian follicle D1 14.7 mm Lt ovarian follicle D2 10.4 mm Lt ovarian follicle mean 12.5 mm Lt ovarian follicle vol 0.829 cm Lt ovarian follicle D1 21.5 mm Lt ovarian follicle D2 11.9 mm Lt ovarian follicle mean 16.7 mm Lt ovarian follicle vol 1.598 cm Lt ovarian follicle D1 15.0 mm Lt ovarian follicle D2 13.9 mm Lt ovarian follicle mean 14.4 mm Lt ovarian follicle vol 1.509 cm Lt ovarian (more content not included)... MATERNAL MEDICINE [facility] Radiology Study observation (narrative) [facility] Progest SerPl-mCncon 025 Progesterone [Mass/Vol] 1.3 ng/mL Normal See comment [facility] Comment on above: Order Comment: Speci men Type: BLOOD SPECIMENOrdering Facility: [facility] Address: [address] [place] [address] Result Comment: Mens trual Cycle Progesterone Reference Ranges: Follicular: <1.0 ng/mL Ovulation: <12.1 ng/mL Luteal: 1.8 to 23.9 ng/mL. Progesterone Reference Ranges vary by gestational period: First Trimester: 11.0 to 44.3 ng/mL Second Trimester: 25.4 to 83.3 ng/mL Third Trimester: 58.7 to 214 ng/mL Post menopausal Progesterone: <0.5 ng/mL Reference: 1. Progesterone (Progesterone III) [package insert V 1.0 Swedish]. [facility], [place], [place]. February 2015. Performed By: #### 2 243-4, 2839-9 ####[facility] LABCLIA [id number] [place] [address] [place] Estradiol SerPl-mCncon 11-19 E2 [Mass/Vol] 698 pg/mL Normal See comment [facility] Comment on above: Order Comment: Speci men Type: BLOOD SPECIMEN [facility]: [facility] Address: [address], [place] [address] Result Comment: Adul t Female Menstrual cycle: Follicular: <90 pg/mL Ovulation: 60-533 pg/mL Luteal: <232 pg/mL Adult Female : First Trimester: 154-3243 pg/mL Second Trimester: 1561-74086 pg/mL Third Trimester: 8525->08333 pg/mL Adult Female Post Menopausal: <138 pg/mL Performed By: #### 2 243-4 #### [facility] CLIA [id number] [address] Follicle Diameter USon 11-19 Indication Follicle monitoring Impression Uterus: Polyp(s): Size 3 mm x 3 mm x 4 mm. Mean 3.3 mm. Anterior Right Ovary: Follicle(s): 1. Size 12.5 mm x 9.9 mm. Mean 11.2 mm. Vol 0.641 cm 2. Size 14.8 mm x 9.7 mm. Mean 12.3 mm. Vol 0.727 cm 3. Size 9.7 mm x 11.5 mm. Mean 10.6 mm. Vol 0.564 cm 18 antral follicles < 10 mm Left Ovary: Cyst(s): Size 25 mm x 15 mm x 15 mm. Unilocular simple cyst Follicle(s): Size 11.4 mm x 9.7 mm. Mean 10.5 mm. Vol 0.558 cm . 20 antral follicles < 10 mm Recommendations Follow up as clinically indicated. Method Transvaginal ultrasound examination. 3D ultrasound examination Uterus Uterus: Visualized Uterus position: retroverted Myometrium: known fibroid Endometrium: three-layer pattern Endometrial thickness, total 8.2 mm Polyps: Polyps identified Uterine polyp D1 3 mm Uterine polyp D2 3 mm Uterine polyp D3 4 mm Uterine polyp mean 3.3 mm Uterine polyp findings: Anterior Right Ovary Rt ovary: Visualized Rt ovarian follicle(s): Follicles identified Rt ovarian follicle D1 12.5 mm Rt ovarian follicle D2 9.9 mm Rt ovarian follicle mean 11.2 mm Rt ovarian follicle vol 0.641 cm Rt ovarian follicle D1 14.8 mm Rt ovarian follicle D2 9.7 mm Rt ovarian follicle mean 12.3 mm Rt ovarian follicle vol 0.727 cm Rt ovarian follicle D1 9.7 mm Rt ovarian follicle D2 11.5 mm Rt ovarian follicle mean 10.6 mm Rt ovarian follicle vol 0.564 cm Rt ovarian follicles other findings: 18 antral follicles < 10 mm Left Ovary Lt ovary: Visualized Lt ovarian cyst(s): Cysts identified Lt ovarian cyst D1 25 mm Lt ovarian cyst D2 15 mm Lt ovarian cyst D3 15 mm Lt ovarian cyst mean 18.3 mm Lt ovarian cyst vol 2.945 cm Lt ovarian cyst findings: Unilocular simple cyst Lt ovarian follicle(s): Follicles identified Lt ovarian follicle D1 11.4 mm Lt ovarian follicle D2 9.7 mm Lt ovarian follicle mean 10.5 mm Lt ovarian follicle vol 0.558 cm Lt ovarian follicles other findings: 20 antral follicles < 10 mm Cul de Sac Visualized. no free fluid visualized Performed By: Winnie Magaña RDMS Read By: Melinda Guidry M.D. MATERNAL MEDICINE [facility] Radiology Study observation (narrative) [facility] CNOVon 11-18-2024 CNOV Office Visit (REIBD) DEBRA MARCH ([id number]) 1985 F Date Time Provider Department 11/18/24 9:20 AM DUNCAN GUADALUPE During your visit today, we recorded the following information about you: Pulse Blood pressure Weight Height 99/minute 113/74 82.5 kg 1.575 m Duncan Guadalupe, ORTHODONTIST.UTILITY WORKER FILM PROCESSING 11/18/2024 1:17 PM Signed HISTORY AND PHYSICAL EXAMINATION GYNECOLOGY SERVICE DATE: 11/18/2024 SERVICE TIME: 9:48 AM PRIMARY CARE PHYSICIAN: Frantz Benson DO CHIEF COMPLAINT/HISTORY OF PRESENT ILLNESS: Ms. March is a 39 year old female referred to me for preoperative evaluation. My final recommendations will be communicated back to the requesting physician/surgeon by the way of the shared medical record. Referring Surgeon: Dr. Perez Date of Surgery: TBD Planned Surgery/Procedure: ivf egg retrieval Indication for Planned Surgery / Procedure: ivf cycle Refer to Assessment section for details of any comorbidities. Patient is Able to Perform the Following Physical Activity: Do heavy work around the house, such as scrubbing floors, lifting or moving heavy furniture (8.00 METs) Run a short distance (8.00 METs) Patient denies any chest pain or undue shortness of breath with the above physical activity. Patient's functional class is I based on self-reported physical activity. Significant Anesthesia Considerations: Patient or family history of pseudocholinesterase deficiency and mental status changes after her . 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 may sometimes experience a short period of breathing paralysis following anesthesia (such as succinylcholine or mivacurium) Genetic disorder (HCC) Lumbosacral radiculopathy at L5 08/19/2021 PAST SURGICAL HISTORY Procedure Laterality Date DELIVERY ONLY , low transverse x 3 11/02/15,01/09/19, 11/25/20 TONSILLECTOMY PRIMARY/SECONDARY Tonsillectomy FAMILY HISTORY Problem Relation Age of Onset Cancer Mother 55 multiple myeloma Hyperlipidemia Father Diabetes Father borderline Hyperlipidemia Brother Breast Cancer Maternal Grandmother Diabetes Maternal Grandmother Heart Maternal Grandmother Heart Maternal Grandfather Cancer Paternal Grandmother Brain Heart Paternal Grandfather Heart Attack Paternal Grandfather No Known Problems Daughter Ovarian cancer No Family History SOCIAL HISTORY Social History Tobacco Use Smoking status: Never Smokeless tobacco: Never Vaping Use Vaping status: Never Used Substance Use Topics Alcohol use: Not Currently Drug use: No MEDICATIONS/ALLERGIES Current Outpatient Medications Medication Sig Dispense Refill Ganirelix Acetate 250 mcg/0.5 mL Inject 1 syringe daily subcutaneous before 8am. Inject same time each day 7 each 1 Follitropin Beta (FOLLISTIM AQ) 300 unit/0.36 mL Inject 250 Units subcutaneously once daily. 6 each 1 leuprolide (LUPRON) 1 mg/0.2 mL Inject 80 units subcutaneous once as directed for Lupron trigger 1 kit 1 chorionic gonadotropin (PREGNYL) 10,000 unit solr 10,000 Units as directed for 1 dose. Mix vials as directed per nursing in office. Administer subcutaneous. 1 each 1 Needle, Disp, 27 G (BD DISPOSABLE NEEDLES) 27 gauge x 1/2" ndle To be used to inject HCG trigger 1 each 1 Syringe with Needle, Disp, (SYRINGE 3CC/20GX1") 3 mL 20 gauge x 1" To be used to mix, draw up and inject HCG trigger 1 each 1 ubrogepant (UBRELVY) 100 mg tablet Take 1 tablet by mouth as needed at onset of migraine. May repeat dose at 2 hours if needed. Max 200 mg per 24 hours. 16 tablet 5 No current facility-administered medications for this visit. ALLERGIES Allergen Reactions Amoxicillin Rash Ceftin [Cefuroxime * GI Upset Vomiting and diarrhea Ilosone Rash Naldecon Other: See Comments Penicillin Rash Phenylephrine Other: See Comments hallucinations Sckjkgekgyc-Cx-Rkgp* Other: See Comments hallucinations Pseudoephedrine Other: See Comments hallucinations Red Dye Other: See Comments hallucinations REVIEW OF SYSTEMS General: No weight loss, malaise or fevers. Neuro: No history of TIA's, stroke, PERIODICALS CLERK tumor, impaired sensorium, hemiplegia, paraplegia or quadriplegia. migraines Respiratory: No history of current cough or dyspnea, or pneumonia in the past 6 weeks. No history of respiratory/pulmonary symptoms or problems. Cardiovascular: No history of HTN requiring medication, no history of angina, CHF, [place], cardiac surgery or stents. Denies rest pain, gangrene or revascularization/amputation for PVD. No history of cardiovascular symptoms or problems. GI: No history of GI symptoms or problems. No history of esophageal varices, recent ascites, or ETOH greater than 2 drinks per day. : No history of UTI in past (more content not included)... Normal [facility] HISTORY PHYSICALon HISTORY PHYSICAL HNO ID: [id number] Author: DUNCAN GUADALUPE APRN.UTILITY WORKER FILM PROCESSING Service: ? Author Type: Nurse Practitioner Type: H&P Filed: 11/18/2024 13:17 Note Text: HISTORY AND PHYSICAL EXAMINATION GYNECOLOGY SERVICE DATE: 11/18/2024 SERVICE TIME: 9:48 AM PRIMARY CARE PHYSICIAN: Frantz Benson DO CHIEF COMPLAINT/HISTORY OF PRESENT ILLNESS: Ms. March is a 39 year old female referred to me for preoperative evaluation. My final recommendations will be communicated back to the requesting physician/surgeon by the way of the shared medical record. Referring Surgeon: Dr. Perez Date of Surgery: TBD Planned Surgery/Procedure: ivf egg retrieval Indication for Planned Surgery / Procedure: ivf cycle Refer to Assessment section for details of any comorbidities. Patient is Able to Perform the Following Physical Activity: Do heavy work around the house, such as scrubbing floors, lifting or moving heavy furniture (8.00 METs) Run a short distance (8.00 METs) Patient denies any chest pain or undue shortness of breath with the above physical activity. Patient's functional class is I based on self-reported physical activity. Significant Anesthesia Considerations: Patient or family history of pseudocholinesterase deficiency and mental status changes after her . 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 may sometimes experience a short period of breathing paralysis following anesthesia (such as succinylcholine or mivacurium) Genetic disorder (HCC) Lumbosacral radiculopathy at L5 08/19/2021 PAST SURGICAL HISTORY Procedure Laterality Date DELIVERY ONLY , low transverse x 3 11/02/15,01/09/19, 11/25/20 TONSILLECTOMY PRIMARY/SECONDARY Tonsillectomy FAMILY HISTORY Problem Relation Age of Onset Cancer Mother 55 multiple myeloma Hyperlipidemia Father Diabetes Father borderline Hyperlipidemia Brother Breast Cancer Maternal Grandmother Diabetes Maternal Grandmother Heart Maternal Grandmother Heart Maternal Grandfather Cancer Paternal Grandmother Brain Heart Paternal Grandfather Heart Attack Paternal Grandfather No Known Problems Daughter Ovarian cancer No Family History SOCIAL HISTORY Social History Tobacco Use Smoking status: Never Smokeless tobacco: Never Vaping Use Vaping status: Never Used Substance Use Topics Alcohol use: Not Currently Drug use: No MEDICATIONS/ALLERGIES Current Outpatient Medications Medication Sig Dispense Refill Ganirelix Acetate 250 mcg/0.5 mL Inject 1 syringe daily subcutaneous before 8am. Inject same time each day 7 each 1 Follitropin Beta (FOLLISTIM AQ) 300 unit/0.36 mL Inject 250 Units subcutaneously once daily. 6 each 1 leuprolide (LUPRON) 1 mg/0.2 mL Inject 80 units subcutaneous once as directed for Lupron trigger 1 kit 1 chorionic gonadotropin (PREGNYL) 10,000 unit solr 10,000 Units as directed for 1 dose. Mix vials as directed per nursing in office. Administer subcutaneous. 1 each 1 Needle, Disp, 27 G (BD DISPOSABLE NEEDLES) 27 gauge x 1/2" ndle To be used to inject HCG trigger 1 each 1 Syringe with Needle, Disp, (SYRINGE 3CC/20GX1") 3 mL 20 gauge x 1" To be used to mix, draw up and inject HCG trigger 1 each 1 ubrogepant (UBRELVY) 100 mg tablet Take 1 tablet by mouth as needed at onset of migraine. May repeat dose at 2 hours if needed. Max 200 mg per 24 hours. 16 tablet 5 No current facility-administered medications for this visit. ALLERGIES Allergen Reactions Amoxicillin Rash Ceftin [Cefuroxime * GI Upset Vomiting and diarrhea Ilosone Rash Naldecon Other: See Comments Penicillin Rash Phenylephrine Other: See Comments hallucinations Ckdlvywjabw-Qz-Iozq* Other: See Comments hallucinations Pseudoephedrine Other: See Comments hallucinations Red Dye Other: See Comments hallucinations REVIEW OF SYSTEMS General: No weight loss, malaise or fevers. Neuro: No history of TIA's, stroke, PERIODICALS CLERK tumor, impaired sensorium, hemiplegia, paraplegia or quadriplegia. migraines Respiratory: No history of current cough or dyspnea, or pneumonia in the past 6 weeks. No history of respiratory/pulmonary symptoms or problems. Cardiovascular: No history of HTN requiring medication, no history of angina, CHF, [place], cardiac surgery or stents. Denies rest pain, gangrene or revascularization/amputation for PVD. No history of cardiovascular symptoms or problems. GI: No history of GI symptoms or problems. No history of esophageal varices, recent ascites, or ETOH greater than 2 drinks per day. : No history of UTI in past 6 weeks. No history of renal failure. Not currently on or requiring dialysis. No history of symptoms or problems. SKID RO[address] MAN: doing ivf Endocrine: No history of diabetes. Has not taken steroids within the past 30 days. No history of endocrinological symptoms or p (more content not included)... Normal [facility] Estradiol [facility] 11-15 E2 [Mass/Vol] 33 pg/mL Normal [facility] Comment on above: Order Comment: Speci men Type: BLOOD SPECIMENOrdering Facility: [facility] Address: [address] [place] [address] Result Comment: This test is not suitable for patients receiving treatment with the drug Fulvestrant (Faslodex). The drug causes an interference leading to falsely elevated estradiol results. Menstrual cycle Estradiol reference ranges: Follicular : < 234 pg/mL Ovulation : 41 to 398 pg/mL Luteal : < 342 pg/mL Estradiol reference ranges vary by gestational period: First trimester : 154 to 3243 pg/mL Second trimester : 1561 to 50304 pg/mL Third trimester : 8285 to >76878 pg/mL Post-menopausal Estradiol reference range: < 41 pg/mL Reference: 1. Estradiol - E2 (Estradiol III) [package insert V 3.0 Swedish]. [facility], [place], [place], October 2015. Performed By: #### 2 243-4 ####[facility] LABCLIA [id number] [place] [address] [place] Follicle Diameter USon 11-15 Indication Follicle monitoring Impression Uterus: Fibroid(s): Size 14 mm x 13 mm x 14 mm. Mean 13.8 mm. Vol 1.364 cm Right Ovary: Size 35 mm x 20 mm x 24 mm Follicle(s): Size 9.7 mm x 6.8 mm. Mean 8.3 mm. Vol 0.237 cm . 20 antral follicles < 10 mm Left Ovary: Follicle(s): Size 50.6 mm x 42.3 mm. Mean 46.4 mm. Vol 47.417 cm . unilocular simple cyst vs leading follicle. 16 antral follicles < 10 mm Recommendations Follow up as clinically indicated. Method Transvaginal ultrasound examination. 3D ultrasound examination Uterus Uterus: Visualized Uterus position: retroverted Description of uterine malformations: arcuate Cervix details: cystic lesions identified left anterior exophytic 18mm x 14mm x 11mm Uterus length 86 mm Uterus width 60 mm Uterus height 44 mm Uterus Vol 118.1 cm Endometrial thickness, total 5.3 mm Uterine fibroid D1 14 mm Uterine fibroid D2 13 mm Uterine fibroid D3 14 mm Uterine fibroid mean 13.8 mm Uterine fibroid vol 1.364 cm Right Ovary Rt ovary: Visualized Rt ovary morphology: premenopausal polycystic Rt ovary D1 35 mm Rt ovary D2 20 mm Rt ovary D3 24 mm Rt ovary mean 26.5 mm Rt ovary Vol 9.0 cm Rt ovarian follicle(s): Follicles identified Rt ovarian follicle D1 9.7 mm Rt ovarian follicle D2 6.8 mm Rt ovarian follicle mean 8.3 mm Rt ovarian follicle vol 0.237 cm Rt ovarian follicles other findings: 20 antral follicles < 10 mm Left Ovary Lt ovary: Visualized Lt ovary morphology: premenopausal polycystic Lt ovarian follicle(s): Follicles identified Lt ovarian follicle D1 50.6 mm Lt ovarian follicle D2 42.3 mm Lt ovarian follicle mean 46.4 mm Lt ovarian follicle vol 47.417 cm Lt ovarian follicle findings: unilocular simple cyst vs leading follicle Lt ovarian follicles other findings: 16 antral follicles < 10 mm Cul [place] Sac Visualized. no free fluid visualized Performed By: Nilsa Prasad RDMS Read By: Luciana Asher MD MATERNAL MEDICINE [facility] Radiology Study observation (narrative) [facility] CNPNon 11-12-2024 CNPN Telephone (REIBD) DEBRA MARCH ([id number]) 1985 F Date Time Provider Department 11/12/24 EDER SYKES During your visit today, we recorded the following information about you: Theodore Lyons 11/12/2024 4:17 PM Signed Pt is calling to see next steps for their IVF process... please reach out Leola Dawn RN 11/14/2024 11:13 AM Signed Return call. Patient voices frustration with getting in contact with staff to set up IVF cycle. Responded with [facility] and reviewed chart. PGT-M has been accepted from [facility]. Checklist otherwise complete, only needs to sign consents. Has ultrasounds ordered. Pended E2. Patient had recent CBC and Hemoglobin A1C completed. Patient called [facility], will get meds tomorrow by [address] Asher and Dusty RN, patient can baseline tomorrow morning. Tomorrow will be cycle day 5. Explained to patient that if a dominant follicle has already been recruited, she may not be able to start this cycle. Patient verbalized understanding. Flowsheet updated, Saved on [employer], message sent to schedulers, [employer] sent to patient. Leola Dawn RN November 14, 2024 11:10 AM Allergies As of Date: 11/12/2024 Noted Allergy Reaction AMOXICILLIN 12/18/2014 2 - Rash CEFTIN (CEFUROXIME AXETIL) 12/18/2014 8 - GI Upset Comments: Vomiting and diarrhea ILOSONE 12/18/2014 2 - Rash NALDECON 03/30/2021 14 - Other: See Comments PENICILLIN 12/18/2014 2 - Rash PHENYLEPHRINE 03/30/2021 14 - Other: See Comments Comments: hallucinations [id number] 03/30/2021 14 - Other: See Comments Comments: hallucinations PSEUDOEPHEDRINE 03/30/2021 14 - Other: See Comments Comments: hallucinations RED DYE 03/30/2021 14 - Other: See Comments Comments: hallucinations Date Reviewed: 10/17/2024 Reviewed by: Fermin Field APRN.UTILITY WORKER FILM PROCESSING - Fully Assessed Reason for Visit: Pt is calling to see next steps for their IVF process... [Other] Primary Visit Diagnosis:Encounter for fertility testing [Z31.41] Order(s):ESTRADIOL-17B BLD [SQE2] Order #: [id number] STANDING Prescriptions as of 11/14/2024 - Ganirelix Acetate 250 mcg/0.5 mL Inject 1 syringe daily subcutaneous before 8am. Inject same time each day - Follitropin Beta (FOLLISTIM AQ) 300 unit/0.36 mL Inject 250 Units subcutaneously once daily. - leuprolide (LUPRON) 1 mg/0.2 mL Inject 80 units subcutaneous once as directed for Lupron trigger - chorionic gonadotropin (PREGNYL) 10,000 unit solr 10,000 Units as directed for 1 dose. Mix vials as directed per nursing in office. Administer subcutaneous. - Needle, Disp, 27 G (BD DISPOSABLE NEEDLES) 27 gauge x 1/2" ndle To be used to inject HCG trigger - Syringe with Needle, Disp, (SYRINGE 3CC/20GX1") 3 mL 20 gauge x 1" To be used to mix, draw up and inject HCG trigger - Phentermine HCl 37.5 mg capsule Take 1 capsule by mouth once daily for 90 days. - metFORMIN (GLUCOPHAGE) 500 mg tablet Take 1 tablet by mouth daily with dinner. - ubrogepant (UBRELVY) 100 mg tablet Take 1 tablet by mouth as needed at onset of migraine. May repeat dose at 2 hours if needed. Max 200 mg per 24 hours. Problem List As Of Date 11/12/2024 Noted Resolved Intractable migraine without status migrainosus*05/10/2016 Mixed hypercholesterolemia and hypertriglycerid*05/21/2015 Migraine headache [G43.909] Factor 5 Leiden mutation, heterozygous (HCC) [D* Chest pain [R07.9] 04/02/2021 Palpitations [R00.2] 04/02/2021 Herniated intervertebral disc of lumbar spine [*08/19/2021 Lumbosacral radiculopathy at L5 [M54.17] 08/19/2021 Acute back pain [M54.9] 02/07/2022 Well adult exam [Z00.00] 02/07/2022 Pre-menstrual mood disorder [F32.81] 02/07/2022 Migraine [G43.909] 02/05/2023 Miscarriage [O03.9] 02/05/2023 Class 1 obesity with body mass index (BMI) of 3*07/21/2023 Situational anxiety [F41.8] 03/15/2024 Acute reaction to situational stress [F43.0] 03/15/2024 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 She will need routine screening mammogram in 1 year. Thanks Frantz MARQUITA Troy Susan LPN 11/05/2024 12:54 PM Signed Pt. informed via My Chart. Allergies As of Date: 11/05/2024 Noted Allergy Reaction AMOXICILLIN 12/18/2014 2 - Rash CEFTIN (CEFUROXIME AXETIL) 12/18/2014 8 - GI Upset Comments: Vomiting and diarrhea ILOSONE 12/18/2014 2 - Rash NALDECON 03/30/2021 14 - Other: See Comments PENICILLIN 12/18/2014 2 - Rash PHENYLEPHRINE 03/30/2021 14 - Other: See Comments Comments: hallucinations [id number] 03/30/2021 14 - Other: See Comments Comments: hallucinations PSEUDOEPHEDRINE 03/30/2021 14 - Other: See Comments Comments: hallucinations RED DYE 03/30/2021 14 - Other: See Comments Comments: hallucinations Date Reviewed: 10/17/2024 Reviewed by: Fermin Field APRN.UTILITY WORKER FILM PROCESSING - Fully Assessed Prescriptions as of 11/05/2024 - Ganirelix Acetate 250 mcg/0.5 mL Inject 1 syringe daily subcutaneous before 8am. Inject same time each day - Follitropin Beta (FOLLISTIM AQ) 300 unit/0.36 mL Inject 250 Units subcutaneously once daily. - leuprolide (LUPRON) 1 mg/0.2 mL Inject 80 units subcutaneous once as directed for Lupron trigger - chorionic gonadotropin (PREGNYL) 10,000 unit solr 10,000 Units as directed for 1 dose. Mix vials as directed per nursing in office. Administer subcutaneous. - Needle, Disp, 27 G (BD DISPOSABLE NEEDLES) 27 gauge x 1/2" ndle To be used to inject HCG trigger - Syringe with Needle, Disp, (SYRINGE 3CC/20GX1") 3 mL 20 gauge x 1" To be used to mix, draw up and inject HCG trigger - Phentermine HCl 37.5 mg capsule Take 1 capsule by mouth once daily for 90 days. - metFORMIN (GLUCOPHAGE) 500 mg tablet Take 1 tablet by mouth daily with dinner. - ubrogepant (UBRELVY) 100 mg tablet Take 1 tablet by mouth as needed at onset of migraine. May repeat dose at 2 hours if needed. Max 200 mg per 24 hours. Problem List As Of Date 11/05/2024 Noted Resolved Intractable migraine without status migrainosus*05/10/2016 Mixed hypercholesterolemia and hypertriglycerid*05/21/2015 Migraine headache [G43.909] Factor 5 Leiden mutation, heterozygous (HCC) [D* Chest pain [R07.9] 04/02/2021 Palpitations [R00.2] 04/02/2021 Herniated intervertebral disc of lumbar spine [*08/19/2021 Lumbosacral radiculopathy at L5 [M54.17] 08/19/2021 Acute back pain [M54.9] 02/07/2022 Well adult exam [Z00.00] 02/07/2022 Pre-menstrual mood disorder [F32.81] 02/07/2022 Migraine [G43.909] 02/05/2023 Miscarriage [O03.9] 02/05/2023 Class 1 obesity with body mass index (BMI) of 3*07/21/2023 Situational anxiety [F41.8] 03/15/2024 Acute reaction to situational stress [F43.0] 03/15/2024 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 Routine screening mammogram is recommended. Annual mammogram will be due in 1 year. BI-RADS Category 1: Negative RISK: Based on the Tyrer-Cuzick (TC) risk assessment model, this patient has a 16.5% lifetime risk of developing breast cancer, meaning they are at average risk for developing breast cancer. However, this is only an estimate based on available history provided on the patient's questionnaire. We encourage all patients to talk with their providers about these results, further recommendations for managing breast health, and appropriate supplemental screening options if the patient has dense breast tissue. Interpreting Radiologist: Maureen Lyons M.D. Electronically signed on: 10/31/2024 Pillow Cleaner: SAI Transcribe Date/Time: Oct 31 2024 7:12A Dictated by: MAUREEN LYONS MD This examination was interpreted and the report reviewed and electronically signed by: MAUREEN LYONS MD on Oct 31 2024 10:48AM [facility] DIVISION OF RADIOLOGY * * *Final Report* * * DATE OF EXAM: Oct 31 2024 7:26AM [facility] 0582 - [facility] SCREENING W PATRIZIA / PROCEDURE REASON: Encounter for screening mammogram for malignant neoplasm of breast * * * * Physician Interpretation * * * * RESULT: [facility] [address] [place] [address] #[id number] - [facility] SCREENING W PATRIZIA HISTORY: 39 year-old patient presents for screening. Patient is asymptomatic in both breasts. Patient states no personal history of breast cancer. The patient has a family history of breast cancer. COMPARISON STUDIES: The present examination has been compared to a prior imaging study dated 03/09/2023 (mammogram). MAMMOGRAM TECHNIQUE: The study was acquired using full field digital technology and interpreted from soft copy. Digital Breast Tomosynthesis (DBT) images were obtained and used to assist in the interpretation of this examination. MAMMOGRAM FINDINGS: The breasts are heterogeneously dense, which may obscure small masses. No suspicious masses, calcifications or other abnormalities are seen in either breast. There are no significant interval changes. DIVISION OF RADIOLOGY Provider, [facility] - 10/31/2024 * * *Final Report* * * DATE OF EXAM: Oct 31 2024 7:26AM [facility] 0582 - [facility] SCREENING W PATRIZIA / PROCEDURE REASON: Encounter for screening mammogram for malignant neoplasm of breast * * * * Physician Interpretation * * * * RESULT: [facility] [address] [place] [address] #[id number] - [facility] SCREENING W PATRIZIA HISTORY: 39 year-old patient presents for screening. Patient is asymptomatic in both breasts. Patient states no personal history of breast cancer. The patient has a family history of breast cancer. COMPARISON STUDIES: The present examination has been compared to a prior imaging study dated 03/09/2023 (mammogram). MAMMOGRAM TECHNIQUE: The study was acquired using full field digital technology and interpreted from soft copy. Digital Breast Tomosynthesis (DBT) images were obtained and used to assist in the interpretation of this examination. MAMMOGRAM FINDINGS: The breasts are heterogeneously dense, which may obscure small masses. No suspicious masses, calcifications or other abnormalities are seen in either breast. There are no significant interval changes. IMPRESSION IMPRESSION: There is no mammographic evidence of malignancy in either breast. Routine screening mammogram is recommended. Annual mammogram will be due in 1 year. BI-RADS Category 1: Negative RISK: Based on the Tyrer-Cuzick (TC) risk assessment model, this patient has a 16.5% lifetime risk of developing breast cancer, meaning they are at average risk for developing breast cancer. However, this is only an estimate based on available history provided on the patient's questionnaire. We encourage all patients to talk with their providers about these results, further recommendations for managing breast health, and appropriate supplemental screening options if the patient has dense breast tissue. Interpreting Radiologist: Maureen Lyons M.D. Electronically signed on: 10/31/2024 Pillow Cleaner: SAI Transcribe Date/Time: Oct 31 2024 7:12A Dictated by: MAUREEN LYONS MD This examination was interpreted and the report reviewed and electronically signed by: MAUREEN LYONS MD on Oct 31 2024 10:48AM EST [facility] Radiology Study observation (narrative) [facility] DBT Breast - bilateral scree ningOrdered By: [facility] Provider on 10-31-2024 [facility] SCREENING W TOMOon 10-31 POPPY SCREENING W PATRIZIA * * *Final Report* * * DATE OF EXAM: Oct 31 2024 7:26AM [facility] 0582 - [facility] SCREENING W PATRIZIA / PROCEDURE REASON: Encounter for screening mammogram for malignant neoplasm of breast * * * * Physician Interpretation * * * * RESULT: [facility] [place] [address] #[id number] - [facility] SCREENING W PATRIZIA HISTORY: 39 year-old patient presents for screening. Patient is asymptomatic in both breasts. Patient states no personal history of breast cancer. The patient has a family history of breast cancer. COMPARISON STUDIES: The present examination has been compared to a prior imaging study dated 03/09/2023 (mammogram). MAMMOGRAM TECHNIQUE: The study was acquired using full field digital technology and interpreted from soft copy. Digital Breast Tomosynthesis (DBT) images were obtained and used to assist in the interpretation of this examination. MAMMOGRAM FINDINGS: The breasts are heterogeneously dense, which may obscure small masses. No suspicious masses, calcifications or other abnormalities are seen in either breast. There are no significant interval changes. IMPRESSION: There is no mammographic evidence of malignancy in either breast. Routine screening mammogram is recommended. Annual mammogram will be due in 1 year. BI-RADS Category 1: Negative RISK: Based on the Tyrer-Cuzick (TC) risk assessment model, this patient has a 16.5% lifetime risk of developing breast cancer, meaning they are at average risk for developing breast cancer. However, this is only an estimate based on available history provided on the patient's questionnaire. We encourage all patients to talk with their providers about these results, further recommendations for managing breast health, and appropriate supplemental screening options if the patient has dense breast tissue. Interpreting Radiologist: Maureen Lyons M.D. Electronically signed on: 10/31/2024 Pillow Cleaner: SAI Transcribe Date/Time: Oct 31 2024 7:12A Dictated by: MAUREEN LYONS MD This examination was interpreted and the report reviewed and electronically signed by: MAUREEN LYONS MD on Oct 31 2024 10:48AM EST [id number] Normal [facility]OV[facility] 10-17-20[facility] DEBRA [facility] ([id number]) 1985 F Date Time Provider Department 10/17/24 9:00 AM [facility] During your visit today, we recorded the following information about you: Pulse Respiration Blood pressure Weight 55/minute 14/minute 118/64 83.2 kg Fermin Field APRN.UTILITY WORKER FILM PROCESSING 10/17/2024 10:08 AM Signed This is a 39 year old female who presents today with: weight loss options HISTORY OF PRESENT ILLNESS: Debra is a 39-year-old female presenting for evaluation of adverse effects from metformin and to discuss alternative weight management options. Debra reports experiencing daily migraines and hair loss since starting metformin, which she has discontinued. She denies experiencing diarrhea while on metformin. She expresses interest in trying phentermine (Adipex) for weight management. We discussed topamax as well. She has a history of palpitations and chest pain triggered by sumatriptan use in 2020 but hasn't had any further issues. Debra has gained approximately 15 lbs over the past 6 months without significant changes in her diet, which includes frequent consumption of coffee with sugar, minimal water intake (approximately three 12-16 oz bottles per day), and regular dining out. She admits to not exercising and attributes some weight gain to stress as well. She reports good sleep quality and denies nocturnal eating, usually doesn't snack after she eats dinner. She is also considering IVF and inquires about the safety of phentermine use during the pre-conception period. She has three children and expresses a desire for a fourth. She denies any current issues with hypertension. All recent lab works have no concerns. Last Wt 10/17/24 : 83.2 kg (183 lb 6.4 oz) 33.54 kg/m2 Stable from August visit, up about 11# in almost a year. 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 may sometimes experience a short period of breathing paralysis following anesthesia (such as succinylcholine or mivacurium) Factor 5 Leiden mutation, heterozygous (HCC) Genetic disorder (HCC) Migraine headache Mixed hypercholesterolemia and hypertriglyceridemia 2016 Personal history of diseases of blood and blood-forming organs PAST SURGICAL HISTORY Procedure Laterality Date DELIVERY ONLY , low transverse x 3 11/02/15,01/09/19, 11/25/20 TONSILLECTOMY PRIMARY/SECONDARY Tonsillectomy ALLERGIES Amoxicillin, Ceftin [Cefuroxime Axetil], Ilosone, Naldecon, Penicillin, Phenylephrine, Ffiznfoumyi-Mr-Czdsdgiyayinp, Pseudoephedrine, and Red Dye MEDICATIONS Current Outpatient Medications Medication Sig ubrogepant (UBRELVY) 100 mg tablet Take 1 tablet by mouth as needed at onset of migraine. May repeat dose at 2 hours if needed. Max 200 mg per 24 hours. Phentermine HCl 37.5 mg capsule Take 1 capsule by mouth once daily for 90 days. metFORMIN (GLUCOPHAGE) 500 mg tablet Take 1 tablet by mouth daily with dinner. (Patient not taking: Reported on 10/17/2024) No current facility-administered medications for this visit. FAMILY HISTORY Problem Relation Age of Onset Hyperlipidemia Father Diabetes Father borderline Cancer Mother 55 multiple myeloma Hyperlipidemia Brother Heart Maternal Grandfather Breast Cancer Maternal Grandmother Diabetes Maternal Grandmother Heart Maternal Grandmother Heart Paternal Grandfather Heart Attack Paternal Grandfather Cancer Paternal Grandmother Brain Ovarian cancer No Family History Social History Tobacco Use Smoking status: Never Smokeless tobacco: Never Vaping Use Vaping status: Never Used Substance Use Topics Alcohol use: Not Currently Drug use: No REVIEW OF SYSTEMS Constitutional: (+) weight gain, (-) sleep disturbance Cardiovascular: (-) palpitations, (-) chest pain Gastrointestinal: (-) diarrhea Skin: (+) alopecia EXAM: BP 118/64 (BP Site: Left Arm, BP Position: Sitting, BP Cuff Size: Large Adult) Pulse (!) 55 Resp 14 Wt 83.2 kg (183 lb 6.4 oz) LMP 08/19/2024 (Approximate) SpO2 96% BMI 33.54 kg/m? PHYSICAL EXAM: General Appearance: Well appearing, alert, in no acute distress, well-hydrated, overweight Lungs: Lungs clear to auscultation. No wheezing, rhonchi, rales.. Heart: RRR without murmur, gallop, or rubs. No ectopy. Extremities: No deformities, edema, skin discoloration, clubbing or cyanosis. Good capillary refill. . ASSESSMENT/PLAN 1. Class 1 obesity without serious comorbidity with body mass index (BMI) of 33.0 to 33.9 in adult, unspecified obesity type (E66.811) Patient experienced migraines and hair loss with metformin use. Interested in trying phentermine (Adipex) for weight management. No recent episodes of palpitations or chest pain. Recent lab work is normal. (more content not included)... Normal [facility] Josef 10-16-2024 [facility] Telephone (REIBD) DEBRA MARCH ([id number]) 1985 F Date Time Provider Department 10/16/24 EDER YSKES During your visit today, we recorded the following information about you: Mariza Davies 10/16/2024 9:07 AM Signed Patient did not received e-mail from Mayi Zhaopin please call her she is asking if she can have information to reach out to [facility], please call patient. Marcy Woodruff, MYRNA 10/17/2024 11:35 AM Signed Patient states she sent the information that [facility] needed. Pt states her doctor ordered her weight loss medication, Atapex. Pt states she may take it for a few months before starting Ivf. Pt states her doctor told her she would have to stop Atapex 30 days prior to retrieval. Marcy Woodruff RN October 17, 2024 11:33 AM Allergies As of Date: 10/16/2024 Noted Allergy Reaction AMOXICILLIN 12/18/2014 2 - Rash CEFTIN (CEFUROXIME AXETIL) 12/18/2014 8 - GI Upset Comments: Vomiting and diarrhea ILOSONE 12/18/2014 2 - Rash NALDECON 03/30/2021 14 - Other: See Comments PENICILLIN 12/18/2014 2 - Rash PHENYLEPHRINE 03/30/2021 14 - Other: See Comments Comments: hallucinations [id number] 03/30/2021 14 - Other: See Comments Comments: hallucinations PSEUDOEPHEDRINE 03/30/2021 14 - Other: See Comments Comments: hallucinations RED DYE 03/30/2021 14 - Other: See Comments Comments: hallucinations Date Reviewed: 09/16/2024 Reviewed by: Dusty Granado, MYRNA - Fully Assessed Reason for Visit: [facility]/pt did not receive e-mail from them [Other] Prescriptions as of 10/17/2024 - Phentermine HCl 37.5 mg capsule Take 1 capsule by mouth once daily for 90 days. - metFORMIN (GLUCOPHAGE) 500 mg tablet Take 1 tablet by mouth daily with dinner. - ubrogepant (UBRELVY) 100 mg tablet Take 1 tablet by mouth as needed at onset of migraine. May repeat dose at 2 hours if needed. Max 200 mg per 24 hours. Problem List As Of Date 10/16/2024 Noted Resolved Intractable migraine without status migrainosus*05/10/2016 Mixed hypercholesterolemia and hypertriglycerid*05/21/2015 Migraine headache [G43.909] Factor 5 Leiden mutation, heterozygous (HCC) [D* Chest pain [R07.9] 04/02/2021 Palpitations [R00.2] 04/02/2021 Herniated intervertebral disc of lumbar spine [*08/19/2021 Lumbosacral radiculopathy at L5 [M54.17] 08/19/2021 Acute back pain [M54.9] 02/07/2022 Well adult exam [Z00.00] 02/07/2022 Pre-menstrual mood disorder [F32.81] 02/07/2022 Migraine [G43.909] 02/05/2023 Miscarriage [O03.9] 02/05/2023 Class 1 obesity with body mass index (BMI) of 3*07/21/2023 Situational anxiety [F41.8] 03/15/2024 Acute reaction to situational stress [F43.0] 03/15/2024 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 States she did not taking the medication on certain days and she did not get a migraine or vomit. States "I know it's the medication that's causing it". Pt asking if Metformin can be discontinued and she can try Adipex? Please advise patient. MYRNA Roman, Fariba Plasencia, SARAH.UTILITY WORKER FILM PROCESSING 10/16/2024 1:21 PM Signed OK to discontinue metformin but she will need appointment to discuss/start on adipex. Thank you, Fariba Bahena, SARAH.UTILITY WORKER FILM PROCESSING Titaeben Darline López, CREW TRUCK DRIVER 10/16/2024 3:59 PM Signed Spoke with pt gave information provided. Pt voices understanding.Was scheduled with fermin for follow up to restart adipex. Allergies As of Date: 10/16/2024 Noted Allergy Reaction AMOXICILLIN 12/18/2014 2 - Rash CEFTIN (CEFUROXIME AXETIL) 12/18/2014 8 - GI Upset Comments: Vomiting and diarrhea ILOSONE 12/18/2014 2 - Rash NALDECON 03/30/2021 14 - Other: See Comments PENICILLIN 12/18/2014 2 - Rash PHENYLEPHRINE 03/30/2021 14 - Other: See Comments Comments: hallucinations [id number] 03/30/2021 14 - Other: See Comments Comments: hallucinations PSEUDOEPHEDRINE 03/30/2021 14 - Other: See Comments Comments: hallucinations RED DYE 03/30/2021 14 - Other: See Comments Comments: hallucinations Date Reviewed: 09/16/2024 Reviewed by: Dusty Granado RN - Fully Assessed Reason for Visit: Patient Update [1234] Prescriptions as of 10/16/2024 - metFORMIN (GLUCOPHAGE) 500 mg tablet Take 1 tablet by mouth daily with dinner. - ubrogepant (UBRELVY) 100 mg tablet Take 1 tablet by mouth as needed at onset of migraine. May repeat dose at 2 hours if needed. Max 200 mg per 24 hours. Problem List As Of Date 10/16/2024 Noted Resolved Intractable migraine without status migrainosus*05/10/2016 Mixed hypercholesterolemia and hypertriglycerid*05/21/2015 Migraine headache [G43.909] Factor 5 Leiden mutation, heterozygous (HCC) [D* Chest pain [R07.9] 04/02/2021 Palpitations [R00.2] 04/02/2021 Herniated intervertebral disc of lumbar spine [*08/19/2021 Lumbosacral radiculopathy at L5 [M54.17] 08/19/2021 Acute back pain [M54.9] 02/07/2022 Well adult exam [Z00.00] 02/07/2022 Pre-menstrual mood disorder [F32.81] 02/07/2022 Migraine [G43.909] 02/05/2023 Miscarriage [O03.9] 02/05/2023 Class 1 obesity with body mass index (BMI) of 3*07/21/2023 Situational anxiety [F41.8] 03/15/2024 Acute reaction to situational stress [F43.0] 03/15/2024 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 trachomatis+N. gonorrhoea e DNA ASPEN+probe Ql (Unsp spec)on 09-19-2024 C. trachomatis rRNA ASPEN+probe Ql (Unsp spec) Not detected Normal Not detected [facility] Comment on above: Order Comment: Speci men Type: BLOOD SPECIMEN Ordering Facility: [facility] Address: [address] [place] [address] Performed By: #### 5 5454-3 #### [facility] CLIA [id number] [address] [place] [address] [place] N. gonorrhoeae rRNA ASPEN+probe Ql (Unsp spec) Not detected Normal Not detected [facility] Comment on above: Order Comment: Speci men Type: BLOOD SPECIMEN Ordering Facility: [facility] Address: [address] [place] [address] Performed By: #### 5 5454-3 #### [facility] CLIA [id number] [address] [place] [address] [place] HBV core Ab Ser Qlon 025 HBV core Ab Ql (S) Negative Normal Negative [facility] Comment on above: Order Comment: Speci felix Type: BLOOD SPECIMEN Ordering Facility: [facility] Address: [address] [place] [address] Result Comment: No e vidence of current or past infection with Hepatitis B virus. Should recent infection be suspected, repeat testing may be considered 3-4 weeks after this draw. Performed By: #### 7 3752-8, 59829-4 #### [facility] CLIA [id number] [address] [place] [address] [place] HBV surface Ag Ser Qlon 05- HBV surface Ag Ql (S) Non-Reactive Normal Nonreactive [facility] Comment on above: Order Comment: Speci [facility] Type: BLOOD SPECIMEN Ordering Facility: [facility] Address: [address] [place] [address] Performed By: #### 7 3752-8, 70305-2 #### [facility] CLIA [id number] [address] [place] [address] [place] HCV Ab Ser Qlon 09-19-2024 HCV Ab Ql (S) Non-Reactive Normal Nonreactive [facility] Comment on above: Order Comment: Speci felix Type: BLOOD SPECIMEN Ordering Facility: [facility] Address: [address] [place] [address] Result Comment: The result suggests no evidence of active infection with Hepatitis C virus. Should recent infection be suspected, repeat testing may be considered 4-6 weeks after this draw. Performed By: #### 5 5454-3 #### [facility] CLIA [id number] [address] [place] [address] [place] HIV 1+2 Ab IA Qlon HIV 1 and 2 Ab IA.rapid Nom (S/P/Bld) Normal [facility] Comment on above: Order Comment: Speci [facility] Type: BLOOD SPECIMEN Ordering Facility: [facility] Address: [address] [place] [address] Result Comment: Test not indicated. Performed By: #### 7 3752-8, 41201-3 #### [facility] CLIA [id number] [address] [place] [address] [place] HIV 1+2 Ab+HIV1 p24 Ag IA Ql Non-Reactive Normal Nonreactive [facility] Comment on above: Order Comment: Speci men Type: BLOOD SPECIMEN Ordering Facility: [facility] Address: [address] [place] [address] Result Comment: [place] Rev. Code 3701.243(E): This information has been disclosed to you from confidential records protected from disclosure by state law. ???You shall make no further disclosure of this information without the specific, written, and informed release of the individual to whom it pertains or as otherwise permitted by state law. A general authorization for the release of medical or other information is not sufficient for the purpose of the release of HIV test results or diagnoses. Test methodology for this assay has moved from Siemens English TVaur XP to Contraqeras 8000 effective February 21, 2022. Please note there may be a change in the reporting units and/or reference range. Performed By: #### 7 3752-8, 92317-1 #### [facility] CLIA [id number] [address] [place] [address] [place] HIV immunoassay testing algorithm interpretation (S/P/Bld) [Interp] Normal [facility] Comment on above: Order Comment: Speci men Type: BLOOD SPECIMEN Ordering Facility: [facility] Address: [address] [place] [address] Result Comment: No e vidence of HIV-1 or HIV-2 infection. Should recent infection be suspected, repeat testing may be considered 2-3 weeks after this draw. Performed By: #### 7 3752-8, 39126-5 #### [facility] CLIA [id number] [address] [place] [address] [place] Reagin and Treponema pallidu m IgG and IgM [Interp]on 09-19-2024 T. pallidum IgG+IgM IA Ql (S) Non-Reactive Normal Nonreactive [facility] Comment on above: Order Comment: Speci men Type: BLOOD SPECIMEN Ordering Facility: [facility] Address: [address] [place] [address] Performed By: #### 7 3752-8, 93126-7 #### [facility] CLIA [id number] [address] [place] [address] [place] Reagin+T pallidum IgG+IgM Se rPl-Impon 09-19-2024 Reagin and Treponema pallidum IgG and IgM [Interp] Cannot exclude recent Treponemal infection if specimen collected within 7-10 days after appearance of suspect lesions or 2-3 weeks after an exposure. Clinical correlation is required. Normal [facility] Comment on above: Order Comment: Speci men Type: BLOOD SPECIMEN Ordering Facility: [facility] Address: [address] [place] [address] Performed By: #### 7 3752-8, 97676-4 #### [facility] CLIA [id number] [address] [place] [address] [place] TYPE + SCREEN PRENATALon ABO O Normal [facility] Comment on above: Order Comment: Speci men Type: BLOOD SPECIMEN Ordering Facility: [facility] Address: [address] [place] [address] Performed By: #### T SPN #### [facility] CLIA [id number] [address] [place] Rh Nom (Bld) Positive Normal [facility] Comment on above: Order Comment: Speci men Type: BLOOD SPECIMEN Ordering Facility: [facility] Address: [address] [place] [address] Performed By: #### T SPN #### [facility] CLIA [id number] [address] [place] TYPE AND SCREEN EXPIRATION 09/22/2024 23:59 Normal [facility] Comment on above: Order Comment: Speci men Type: BLOOD SPECIMEN Ordering Facility: [facility] Address: [address] [place], [place] [address] Performed By: #### T SPN #### [facility] CLIA [id number] [address] [place] VARICELLA ZOSTER IGGon 09-19 VARICELLA ZOSTER IGG, QUAL Positive Normal Positive [facility] Comment on above: Order Comment: Speci men Type: BLOOD SPECIMEN Ordering Facility: [facility] Address: [address] [place] [address] Result Comment: The result suggests recent or past exposure to Varicella-Zoster virus or chickenpox vaccination or zoster vaccination. Positive result may also be seen due to presence of passively-transferred antibodies. Please correlate with patient's history. Performed By: #### 5 5454-3 #### [facility] CLIA [id number] [address] [place] [address] [place] CNPDorota 09-17-2024 CRISTINAN Telephone (REIAV) DEBRA MARCH ([id number]) 1985 F Date Time Provider Department 09/17/24 EDER SYKES During your visit today, we recorded the following information about you: Venessa Garcia 09/23/2024 7:14 AM Signed Pt wanted to send this information over for her P2P. Attached are the reasons [facility] denied benefits. For the peer to peer... 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 He has multiple developmental delays including crawling, walking and speech. He is almost 4 and has severe apraxia. 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 This can cause autism which my son was diagnosed with through the [facility]. Forrest Clamp Truck Driver, Lana 09/24/2024 12:08 PM Signed Please return call to [facility] (medical mutual [phone] option 1 and option 2/ ref# [id number] Allergies As of Date: 09/17/2024 Noted Allergy Reaction AMOXICILLIN 12/18/2014 2 - Rash CEFTIN (CEFUROXIME AXETIL) 12/18/2014 8 - GI Upset Comments: Vomiting and diarrhea ILOSONE 12/18/2014 2 - Rash NALDECON 03/30/2021 14 - Other: See Comments PENICILLIN 12/18/2014 2 - Rash PHENYLEPHRINE 03/30/2021 14 - Other: See Comments Comments: hallucinations [id number] 03/30/2021 14 - Other: See Comments Comments: hallucinations PSEUDOEPHEDRINE 03/30/2021 14 - Other: See Comments Comments: hallucinations RED DYE 03/30/2021 14 - Other: See Comments Comments: hallucinations Date Reviewed: 09/16/2024 Reviewed by: Dusty Granado, RN - Fully Assessed Prescriptions as of 09/24/2024 - metFORMIN (GLUCOPHAGE) 500 mg tablet Take 1 tablet by mouth daily with dinner. - ubrogepant (UBRELVY) 100 mg tablet Take 1 tablet by mouth as needed at onset of migraine. May repeat dose at 2 hours if needed. Max 200 mg per 24 hours. Problem List As Of Date 09/17/2024 Noted Resolved Intractable migraine without status migrainosus*05/10/2016 Mixed hypercholesterolemia and hypertriglycerid*05/21/2015 Migraine headache [G43.909] Factor 5 Leiden mutation, heterozygous (HCC) [D* Chest pain [R07.9] 04/02/2021 Palpitations [R00.2] 04/02/2021 Herniated intervertebral disc of lumbar spine [*08/19/2021 Lumbosacral radiculopathy at L5 [M54.17] 08/19/2021 Acute back pain [M54.9] 02/07/2022 Well adult exam [Z00.00] 02/07/2022 Pre-menstrual mood disorder [F32.81] 02/07/2022 Migraine [G43.909] 02/05/2023 Miscarriage [O03.9] 02/05/2023 Class 1 obesity with body mass index (BMI) of 3*07/21/2023 Situational anxiety [F41.8] 03/15/2024 Acute reaction to situational stress [F43.0] 03/15/2024 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 Sent chart high priority to Marek Nixon. Dusty Granado RN September 15, 2024 7:28 AM Telephone Nurse Teach Note Patient name and birthday verified: Yes Persons Present: patient Partner's Name: Tara March Partner's : 04/15/1987 Partner's Reason for visit: IVF Checklist Patient had an IVF consult with Farideh Perez MD on 08/15/24 Family history of carrier of genetic disease -two sons with chromosomal abnormality ALICE Treatment plan / protocol: Antagonist Starting Dose: 250 units rFSH or higher pending AFC Supplemental meds: None Trigger: Lupron plus up to 5000 Units HCG if low risk of OHSS PGT: she will need PGT. However, since the genetic report is not available, I do not know if she needs PGT-A, M or SR. OK to start OCPs for cycle start timing: No due to please see HPI Single intent Sperm Source:Partner Fresh Previous Fertility Treatment? - IUI X3 G 4P 3013 LMP 08/19/24, Cycles- 28 days IVF #1 WITH PGT CLEARED Ultrasounds self-pay or bill to insurance: INSURANCE Was clinical notified of clearance? NO Was pt notified of clearance? YES Authorized date range: PLAN COVERS IVF/US WITHOUT THE NEED FOR PA. PA PENDING FOR PGT. PT PAID $3,694 WHILE WAITING FOR PA. IF PA COMES BACK APPROVED, PT WILL NEED A PAPER CHECK A REFUND Authorized referral# [id number] Reviewed and Completed: Yes No Medications and allergies reviewed and updated. [x] [] History reviewed: OB, Medical, Surgical, and Substance [x] [] Consents for IVF and Cryopreservations reviewed and sent [x] [] Pre IVF requirements sent to the patient via Med[employer] [x] [] Pre IVF Requirements Reviewed [x] [] Consents for IVF and Cryopreservations reviewed and sent to my chart [x] [] / Medical History Questions Yes No Pertinent details Any artificial parts, pins, limbs, lines, drains, ports, implants, prosthetics? [] [x] Do you have any Thyroid problems? [] [x] Do you have diabetes? [] [x] If so, last eye apt and MFM visit Any personal history of blood clots are hematology issues? [x] [] Do you have sleep apnea? [] [x] If so, do they have a CPAP machine? Any latex allergies? [] [x] Have you used control pills in the past? [] [x] Any contraindications to control pills: migraines, smoking, blood clots? [x] [] Are you taking weight loss medication either injectable or oral? 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 [] [x] [] Uterine Evaluation- Reviewed needed prior to FET [] [x] [] [facility] / pap up to date [] [] [] [x] Mammogram if >February will need- done at [facility] [] [x] [] [] Semen Analysis [] [x] [] [] Partner STI Testing [x] [] [] [] Partner Genetic Carrier Screening [facility] James- pku carrier Yes No TBD [x] [] [] PGTA Testing- A-yes, M [x] [] Episode, checklist, ART cycle plan, and flow sheet completed [x] [] Patient and partner agrees to not order medications until all requirements are completed and they have been instructed to do so [x] [] Patient and Partner verbally agreed on 09/15/24 to share their medical information with each other. [x] [] Discussed vacations 11/13-11/20 [x] [] Discussed weekend monitoring [x] [] Discussed time off work / FMLA [x] [] My chart use and when to call the office Plan: Complete IVF checklist. Call the office when complete / and or call with the first day of your full flow period. Marek Nixon, [facility] Berry, Dusty, MYRNA Montano, I will work on my note marta. 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 I will send a message tonroyce (I need to run to a personal appointment) and offer a phone call and formal visit to review in more detail. The patient has a son with a maternally inherited microdeletion and another son with a de sonam microduplication and she is interested in testing embryos for both. (more content not included)... Normal [facility] CBC W Auto Differential pane l (Bld)on 09-09-2024 Basophils (Bld) [#/Vol] 0.06 10*3/uL Normal <0.11 [facility] Comment on above: Order Comment: Speci men Type: BLOOD SPECIMEN Ordering Facility: [facility] Address: [address] [place] [address] Performed By: #### 5 5454-3 #### [facility] CLIA [id number] [address] [place] [address] [place] Basophils/100 WBC (Bld) 0.9 % Normal [facility] Comment on above: Order Comment: Speci men Type: BLOOD SPECIMEN Ordering Facility: [facility] Address: [address] [place] [address] Performed By: #### 5 5454-3 #### [facility] CLIA [id number] [address] [place] [address] [place] Differential cell count method Nom (Bld) Auto Normal [facility] Comment on above: Order Comment: Speci men Type: BLOOD SPECIMEN Ordering Facility: [facility] Address: [address] [place] [address] Performed By: #### 5 5454-3 #### [facility] CLIA [id number] [address] [place] [address] [place] Eosinophils (Bld) [#/Vol] 0.09 10*3/uL Normal <0.46 [facility] Comment on above: Order Comment: Speci men Type: BLOOD SPECIMEN Ordering Facility: [facility] Address: [address] [place] [address] Performed By: #### 5 5454-3 #### [facility] CLIA [id number] [address] [place] [address] [place] Eosinophils/100 WBC (Bld) 1.4 % Normal [facility] Comment on above: Order Comment: Speci men Type: BLOOD SPECIMEN Ordering Facility: [facility] Address: [address] [place] [address] Performed By: #### 5 5454-3 #### [facility] CLIA [id number] [address] [place] [address] [place] Erythrocyte distribution width (RBC) [Ratio] 13.2 % Normal 11.5-15.0 [facility] Comment on above: Order Comment: Speci men Type: BLOOD SPECIMEN Ordering Facility: [facility] Address: [address] [place] [address] Performed By: #### 5 5454-3 #### [facility] CLIA [id number] [address] [place] [address] [place] Hematocrit (Bld) [Volume fraction] 41.6 % Normal 36.0-46.0 [facility] Comment on above: Order Comment: Speci men Type: BLOOD SPECIMEN Ordering Facility: [facility] Address: [address] [place] [address] Performed By: #### 5 5454-3 #### [facility] CLIA [id number] [address] [place] [address] [place] Hemoglobin (Bld) [Mass/Vol] 13.2 g/dL Normal 11.5-15.5 [facility] Comment on above: Order Comment: Speci men Type: BLOOD SPECIMEN Ordering Facility: [facility] Address: [address] [place] [address] Performed By: #### 5 5454-3 #### [facility] CLIA [id number] [address] [place] [address] [place] Immature granulocytes (Bld) [#/Vol] 0.03 10*3/uL Normal <0.10 [facility] Comment on above: Order Comment: Speci men Type: BLOOD SPECIMEN Ordering Facility: [facility] Address: [address] [place] [address] Performed By: #### 5 5454-3 #### [facility] CLIA [id number] [address] [place] [address] [place] Immature granulocytes/100 WBC (Bld) 0.5 % Normal [facility] Comment on above: Order Comment: Speci men Type: BLOOD SPECIMEN Ordering Facility: [facility] Address: [address] [place] [address] Performed By: #### 5 5454-3 #### [facility] CLIA [id number] [address] [place] [address] [place] Lymphocytes (Bld) [#/Vol] 1.85 10*3/uL Normal 1.00-4.00 [facility] Comment on above: Order Comment: Speci men Type: BLOOD SPECIMEN Ordering Facility: [facility] Address: [address] [place] [address] Performed By: #### 5 5454-3 #### [facility] CLIA [id number] [address] [place] [address] [place] Lymphocytes/100 WBC (Bld) 28.2 % Normal [facility] Comment on above: Order Comment: Speci men Type: BLOOD SPECIMEN Ordering Facility: [facility] Address: [address] [place] [address] Performed By: #### 5 5454-3 #### [facility] CLIA [id number] [address] [place] [address] [place] MCH (RBC) [Entitic mass] 28.4 pg Normal 26.0-34.0 [facility] Comment on above: Order Comment: Speci men Type: BLOOD SPECIMEN Ordering Facility: [facility] Address: [address] [place] [address] Performed By: #### 5 5454-3 #### [facility] CLIA [id number] [address] [place] [address] [place] MCHC (RBC) [Mass/Vol] 31.7 g/dL Normal 30.5-36.0 [facility] Comment on above: Order Comment: Speci men Type: BLOOD SPECIMEN Ordering Facility: [facility] Address: [address] [place] [address] Performed By: #### 5 5454-3 #### [facility] CLIA [id number] [address] [place] [address] [place] MCV (RBC) [Entitic vol] 89.7 fL Normal 80.0-100.0 [facility] Comment on above: Order Comment: Speci men Type: BLOOD SPECIMEN Ordering Facility: [facility] Address: [address] [place] [address] Performed By: #### 5 5454-3 #### [facility] CLIA [id number] [address] [place] [address] [place] Monocytes (Bld) [#/Vol] 0.47 10*3/uL Normal <0.87 [facility] Comment on above: Order Comment: Speci men Type: BLOOD SPECIMEN Ordering Facility: [facility] Address: [address] [place] [address] Performed By: #### 5 5454-3 #### [facility] CLIA [id number] [address] [place] [address] [place] Monocytes/100 WBC (Bld) 7.2 % Normal [facility] Comment on above: Order Comment: Speci men Type: BLOOD SPECIMEN Ordering Facility: [facility] Address: [address] [place] [address] Performed By: #### 5 5454-3 #### [facility] CLIA [id number] [address] [place] [address] [place] Neutrophils (Bld) [#/Vol] 4.07 10*3/uL Normal 1.45-7.50 [facility] Comment on above: Order Comment: Speci men Type: BLOOD SPECIMEN Ordering Facility: [facility] Address: [address] [place] [address] Performed By: #### 5 5454-3 #### [facility] CLIA [id number] [address] [place] [address] [place] Neutrophils/100 WBC (Bld) 61.8 % Normal [facility] Comment on above: Order Comment: Speci men Type: BLOOD SPECIMEN Ordering Facility: [facility] Address: [address] [place] [address] Performed By: #### 5 5454-3 #### [facility] CLIA [id number] [address] [place] [address] [place] Nucleated RBC (Bld) [#/Vol] 10*3/uL Normal <0.01 [facility] Comment on above: Order Comment: Speci men Type: BLOOD SPECIMEN Ordering Facility: [facility] Address: [address] [place] [address] Performed By: #### 5 5454-3 #### [facility] CLIA [id number] [address] [place] [address] [place] Nucleated RBC/100 WBC (Bld) [Ratio] 0.0 /100 WBC Normal [facility] Comment on above: Order Comment: Speci men Type: BLOOD SPECIMEN Ordering Facility: [facility] Address: [address] [place] [address] Performed By: #### 5 5454-3 #### [facility] CLIA [id number] [address] [place] [address] [place] Platelet mean volume (Bld) [Entitic vol] 11.5 fL Normal 9.0-12.7 [facility] Comment on above: Order Comment: Speci men Type: BLOOD SPECIMEN Ordering Facility: [facility] Address: [address] [place] [address] Performed By: #### 5 5454-3 #### [facility] CLIA [id number] [address] [place] [address] [place] Platelets (Bld) [#/Vol] 276 10*3/uL Normal 150-400 [facility] Comment on above: Order Comment: Speci men Type: BLOOD SPECIMEN Ordering Facility: [facility] Address: [address] [place] [address] Performed By: #### 5 5454-3 #### [facility] CLIA [id number] [address] [place] [address] [place] RBC (Bld) [#/Vol] 4.64 10*6/uL Normal 3.90-5.20 [facility] Comment on above: Order Comment: Speci men Type: BLOOD SPECIMEN Ordering Facility: [facility] Address: [address] [place] [address] Performed By: #### 5 5454-3 #### [facility] CLIA [id number] [address] [place] [address] [place] WBC (Bld) [#/Vol] 6.57 10*3/uL Normal 3.70-11.00 [facility] Comment on above: Order Comment: Speci men Type: BLOOD SPECIMEN Ordering Facility: [facility] Address: [address] [place] [address] Performed By: #### 5 5454-3 #### [facility] CLIA [id number] [address] [place] [address] [place] Josef 09-09-2024 CNPN Telephone (OSCARWS) DEBRA MARCH ([id number]) 1985 F Date Time Provider Department 09/09/24 [facility] During your visit today, we recorded the following information about you: Zakiya Jeffrey, RN 09/09/2024 9:19 AM Signed Patient calls and states that she looked up the medication that Dr. Benson was recommending for her to help her lose weight. Patient states that she would like to be started on Metformin. Please send prescription to pharmacy for this. Patient uses [facility] [address]. Please review and advise, MYRNA Zhou Bernadette, PA-C 09/09/2024 2:54 PM Signed Reviewed PCP's last note. Prescription for Metformin 500 mg once daily with dinner sent to pharmacy. If tolerating and needed, can consider increase to twice daily with meals. Mary Hamilton PA-C 09/09/2024 The following approved medication requests have been transmitted electronically. Requested Prescriptions Signed Prescriptions Disp Refills metFORMIN (GLUCOPHAGE) 500 mg tablet 90 tablet 1 Sig: Take 1 tablet by mouth daily with dinner. Authorizing Provider: MARY HAMILTON PA-C Detwiler-Green, Susan LPN 09/09/2024 3:34 PM Signed Pt. informed via My chart. Allergies As of Date: 09/09/2024 Noted Allergy Reaction AMOXICILLIN 12/18/2014 2 - Rash CEFTIN (CEFUROXIME AXETIL) 12/18/2014 8 - GI Upset Comments: Vomiting and diarrhea ILOSONE 12/18/2014 2 - Rash NALDECON 03/30/2021 14 - Other: See Comments PENICILLIN 12/18/2014 2 - Rash PHENYLEPHRINE 03/30/2021 14 - Other: See Comments Comments: hallucinations [id number] 03/30/2021 14 - Other: See Comments Comments: hallucinations PSEUDOEPHEDRINE 03/30/2021 14 - Other: See Comments Comments: hallucinations RED DYE 03/30/2021 14 - Other: See Comments Comments: hallucinations Date Reviewed: 09/03/2024 Reviewed by: Darline Hernandez LPN - Fully Assessed Reason for Visit: Patient Update [1234] Order(s):metFORMIN (GLUCOPHAGE) 500 mg tabletTake 1 tablet by mouth daily with dinner.Disp: 90 tabletRfl: 1 Prescriptions as of 09/09/2024 - metFORMIN (GLUCOPHAGE) 500 mg tablet Take 1 tablet by mouth daily with dinner. - ubrogepant (UBRELVY) 100 mg tablet Take 1 tablet by mouth as needed at onset of migraine. May repeat dose at 2 hours if needed. Max 200 mg per 24 hours. Problem List As Of Date 09/09/2024 Noted Resolved Intractable migraine without status migrainosus*05/10/2016 Mixed hypercholesterolemia and hypertriglycerid*05/21/2015 Migraine headache [G43.909] Factor 5 Leiden mutation, heterozygous (HCC) [D* Chest pain [R07.9] 04/02/2021 Palpitations [R00.2] 04/02/2021 Herniated intervertebral disc of lumbar spine [*08/19/2021 Lumbosacral radiculopathy at L5 [M54.17] 08/19/2021 Acute back pain [M54.9] 02/07/2022 Well adult exam [Z00.00] 02/07/2022 Pre-menstrual mood disorder [F32.81] 02/07/2022 Migraine [G43.909] 02/05/2023 Miscarriage [O03.9] 02/05/2023 Class 1 obesity with body mass index (BMI) of 3*07/21/2023 Situational anxiety [F41.8] 03/15/2024 Acute reaction to situational stress [F43.0] 03/15/2024 Prescriptions ordered this encounter Disp Refills Start End METFORMIN 500 MG TABLET 90 t* 1 09/09/2024 Route: ORAL Sig: Take 1 tablet by mouth daily with dinner. Encounter Status:Closed by MAUREEN WRIGHT LPN on 09/09/24 Normal [facility] Comprehensive metabolic 2000 panelon 09-09-2024 Albumin [Mass/Vol] 4.5 g/dL Normal 3.9-4.9 [facility] Comment on above: Order Comment: Speci men Type: BLOOD SPECIMEN Ordering Facility: [facility] Address: [address] [place] [address] Performed By: #### 5 5454-3 #### [facility] CLIA [id number] [address] [place] [address] [place] ALP [Catalytic activity/Vol] 68 U/L Normal 34-123 [facility] Comment on above: Order Comment: Speci men Type: BLOOD SPECIMEN Ordering Facility: [facility] Address: [address] [place] [address] Performed By: #### 5 5454-3 #### [facility] CLIA [id number] [address] [place] [address] [place] ALT With P-5'-P [Catalytic activity/Vol] 14 U/L Normal 7-38 [facility] Comment on above: Order Comment: Speci men Type: BLOOD SPECIMEN Ordering Facility: [facility] Address: [address] [place] [address] Performed By: #### 5 5454-3 #### [facility] CLIA [id number] [address] [place] [address] [place] Anion gap [Moles/Vol] 11 mmol/L Normal 8-15 [facility] Comment on above: Order Comment: Speci men Type: BLOOD SPECIMEN Ordering Facility: [facility] Address: [address] [place] [address] Performed By: #### 5 5454-3 #### [facility] CLIA [id number] [address] [place] [address] [place] AST With P-5'-P [Catalytic activity/Vol] 19 U/L Normal 13-35 [facility] Comment on above: Order Comment: Speci men Type: BLOOD SPECIMEN Ordering Facility: [facility] Address: [address] [place] [address] Performed By: #### 5 5454-3 #### [facility] CLIA [id number] [address] [place] [address] [place] Bilirubin [Mass/Vol] 0.4 mg/dL Normal 0.2-1.3 [facility] Comment on above: Order Comment: Speci men Type: BLOOD SPECIMEN Ordering Facility: [facility] Address: [address] [place] [address] Performed By: #### 5 5454-3 #### [facility] CLIA [id number] [address] [place] [address] [place] Calcium [Mass/Vol] 9.8 mg/dL Normal 8.5-10.2 [facility] Comment on above: Order Comment: Speci men Type: BLOOD SPECIMEN Ordering Facility: [facility] Address: [address] [place] [address] Performed By: #### 5 5454-3 #### [facility] CLIA [id number] [address] [place] [address] [place] Chloride [Moles/Vol] 101 mmol/L Normal 98-107 [facility] Comment on above: Order Comment: Speci men Type: BLOOD SPECIMEN Ordering Facility: [facility] Address: [address] [place] [address] Performed By: #### 5 5454-3 #### [facility] CLIA [id number] [address] [place] [address] [place] CO2 [Moles/Vol] 26 mmol/L Normal 22-30 [facility] Comment on above: Order Comment: Speci men Type: BLOOD SPECIMEN Ordering Facility: [facility] Address: [address] [place] [address] Performed By: #### 5 5454-3 #### [facility] CLIA [id number] [address] [place] [address] [place] Creatinine [Mass/Vol] 0.73 mg/dL Normal 0.58-0.96 [facility] Comment on above: Order Comment: Speci men Type: BLOOD SPECIMEN Ordering Facility: [facility] Address: [address] [place] [address] Performed By: #### 5 5454-3 #### [facility] CLIA [id number] [address] [place] [address] [place] Creatinine and Glomerular filtration rate.predicted panel (S/P/Bld) 107 mL/min/1.73m??? Normal >=60 [facility] Comment on above: Order Comment: Speci men Type: BLOOD SPECIMEN Ordering Facility: [facility] Address: [address] [place] [address] Result Comment: Clemencia mated Glomerular Filtration Rate (eGFR) is calculated using the 2020 CKD-EPI creatinine equation. This equation utilizes serum creatinine, sex, and age as parameters. The creatinine assay has traceable calibration to isotope dilution-mass spectrometry. Refer to KDIGO guidelines for clinical interpretation. In patients with unstable renal function, e.g. those with acute kidney injury, the eGFR may not accurately reflect actual GFR. Performed By: #### 5 5454-3 #### [facility] CLIA [id number] [address] [place] [address] [place] Glucose [Mass/Vol] 91 mg/dL Normal 74-99 [facility] Comment on above: Order Comment: Citlalli [place] Type: BLOOD SPECIMEN Ordering Facility: [facility] Address: [address] [place] [address] Result Comment: The [place] Diabetes Association (ADA) provides guidance for cutoff values for fasting glucose and random glucose. The ADA defines fasting as no caloric intake for at least 8 hours. Fasting plasma glucose results between 100 to 125 mg/dL indicate increased risk for diabetes (prediabetes). Fasting plasma glucose results greater than or equal to 126 mg/dL meet the criteria for diagnosis of diabetes. In the absence of unequivocal hyperglycemia, results should be confirmed by repeat testing. In a patient with classic symptoms of hyperglycemia or hyperglycemic crisis, random plasma glucose results greater than or equal to 200 mg/dL meet the criteria for diagnosis of diabetes. Reference: Standards of Medical Care in Diabetes 2016, [place] Diabetes Association. Diabetes Care. 2016.39(Suppl 1). Performed By: #### 5 5454-3 #### [facility] CLIA [id number] [address] [place], [place] [address] [place] Potassium [Moles/Vol] 4.3 mmol/L Normal 3.7-5.1 [facility] Comment on above: Order Comment: Citlalli [place] Type: BLOOD SPECIMEN Ordering Facility: [facility] Address: [address] [place], [place] [address] Performed By: #### 5 5454-3 #### [facility] CLIA [id number] [address] [place], [place] [address] [place] Protein [Mass/Vol] 8.2 g/dL High 6.3-8.0 [facility] Comment on above: Order Comment: Speci men Type: BLOOD SPECIMEN Ordering Facility: [facility] Address: [address] [place] [address] Performed By: #### 5 5454-3 #### [facility] CLIA [id number] [address] [place] [address] [place] Sodium [Moles/Vol] 138 mmol/L Normal 136-144 [facility] Comment on above: Order Comment: Speci men Type: BLOOD SPECIMEN Ordering Facility: [facility] Address: [address] [place] [address] Performed By: #### 5 5454-3 #### [facility] CLIA [id number] [address] [place] [address] [place] Urea nitrogen [Mass/Vol] 14 mg/dL Normal 7-21 [facility] Comment on above: Order Comment: Speci men Type: BLOOD SPECIMEN Ordering Facility: [facility] Address: [address] [place] [address] Performed By: #### 5 5454-3 #### [facility] CLIA [id number] [address] [place] [address] [place] HbA1c (Bld)on 09-09-2024 Average glucose Estimated from glycated hemoglobin (Bld) [Mass/Vol] 105 mg/dL Normal [facility] Comment on above: Order Comment: Speci men Type: BLOOD SPECIMEN Ordering Facility: [facility] Address: [address] [place] [address] Result Comment: eAG: (Estimated average glucose) is a calculated value from HgbA1c and is business development representative of the average blood glucose level in the last 2-3 month period. Performed By: #### 5 5454-3 #### [facility] CLIA [id number] [address] [place] [address] [place] HbA1c (Bld) [Mass fraction] 5.3 % Normal 4.3-5.6 [facility] Comment on above: Order Comment: Speedyi men Type: BLOOD SPECIMEN Ordering Facility: [facility] Address: [address] [place] [address] Result Comment: Amer [place] Diabetes Association guidelines indicate that patients with HgbA1c in the range 5.7-6.4% are at increased risk for development of diabetes, and intervention by lifestyle modification may be beneficial. HgbA1c greater or equal to 6.5% is considered diagnostic of diabetes. Performed By: #### 5 5454-3 #### [facility] CLIA [id number] [address] [place] [address] [place] Lipid 1996 panelon 5 Cholesterol [Mass/Vol] 199 mg/dL Normal <200 [facility] Comment on above: Order Comment: Citlalli felix Type: BLOOD SPECIMEN Ordering Facility: [facility] Address: [address] [place] [address] Result Comment: <200 mg/dL, Desirable 200-239 mg/dL, Borderline high >239 mg/dL, High Performed By: #### 5 5454-3 #### [facility] CLIA [id number] [address] [place] [address] [place] Cholesterol in HDL [Mass/Vol] 54 mg/dL Normal >39 [facility] Comment on above: Order Comment: Citlalli felix Type: BLOOD SPECIMEN Ordering Facility: [facility] Address: [address] [place] [address] Result Comment: 40-5 9 mg/dL, Acceptable >59 mg/dL, High: Negative risk factor for coronary heart disease <40 mg/dL, Low: Positive risk factor for coronary heart disease Performed By: #### 5 5454-3 #### [facility] CLIA [id number] [address] [place] [address] [place] Cholesterol in LDL [Mass/Vol] 122 mg/dL High <100 [facility] Comment on above: Order Comment: Speedyi men Type: BLOOD SPECIMEN Ordering Facility: [facility] Address: [address] [place] [address] Result Comment: <100 mg/dL, Optimal 100-129 mg/dL, Near optimal/above optimal 130-159 mg/dL, Borderline high 160-189 mg/dL, High >189 mg/dL, Very high Secondary prevention optimal LDL Cholesterol levels are recommended to be <70 mg/dL LDL cholesterol is calculated using the Estrada-NIH equation. Performed By: #### 5 5454-3 #### [facility] CLIA [id number] [facility] [address] [place] Cholesterol in LDL/Cholesterol in HDL [Mass ratio] 2.26 {ratio} Normal <2.54 [facility] Comment on above: Order Comment: Speci men Type: BLOOD SPECIMEN Ordering Facility: [facility] Address: [address] [place] [address] Result Comment: Refe sudhirce: 1. National Cholesterol Education Program ATP III Guideline At-A-Glance Quick Desk Reference: National Heart, Lung, and Blood [place]. National Institutes of Health. 2001: NIH Publication No. 01-3305. 2. An International Atherosclerosis Society position paper: global recommendations for the management of dyslipidemia: executive summary, Atherosclerosis. 2014: 232(2):410-413. Performed By: #### 5 5454-3 #### [facility] CLIA [id number] [address] [place] [address] [place] Cholesterol in VLDL [Mass/Vol] 23 mg/dL Normal <30 [facility] Comment on above: Order Comment: Speci men Type: BLOOD SPECIMEN Ordering Facility: [facility] Address: [address] [place] [address] Performed By: #### 5 5454-3 #### [facility] CLIA [id number] [address] [place] [address] [place] Cholesterol non HDL [Mass/Vol] 145 mg/dL High <130 [facility] Comment on above: Order Comment: Speci men Type: BLOOD SPECIMEN Ordering Facility: [facility] Address: [address] [place] [address] Result Comment: <130 mg/dL, Optimal 130-159 mg/dL, Near optimal/above optimal 160-189 mg/dL, Borderline high 190-219 mg/dL, High >219 mg/dL, Very high Secondary prevention optimal non HDL Cholesterol levels are recommended to be <100 mg/dL Performed By: #### 5 5454-3 #### [facility] CLIA [id number] [address] [place] [address] [place] Cholesterol.total /Cholesterol in HDL [Mass ratio] 3.69 {ratio} Normal <5.10 [facility] Comment on above: Order Comment: Speci men Type: BLOOD SPECIMEN Ordering Facility: [facility] Address: [address] [place] [address] Performed By: #### 5 5454-3 #### [facility] CLIA [id number] [address] [place] [address] [place] FASTING TIME 12 hrs Normal [facility] Comment on above: Order Comment: Speci men Type: BLOOD SPECIMEN Ordering Facility: [facility] Address: [address] [place] [address] Performed By: #### 5 5454-3 #### [facility] CLIA [id number] [address] [place] [address] [place] Triglyceride [Mass/Vol] 132 mg/dL Normal <150 [facility] Comment on above: Order Comment: Speci men Type: BLOOD SPECIMEN Ordering Facility: [facility] Address: [address] [place] [address] Result Comment: <150 mg/dL, Normal 150-199 mg/dL, Borderline high 200-499 mg/dL, High >499 mg/dL, Very high Performed By: #### 5 5454-3 #### [facility] CLIA [id number] [address] [place] [address] [place] TSH SerPl-aCncon 09-09-2024 TSH Qn 1.550 m[IU]/L Normal 0.270-4.200 [facility] Comment on above: Order Comment: Citlalli [place] Type: BLOOD SPECIMEN Ordering Facility: [facility] Address: [address] [place] [address] Result Comment: If t he patient is , TSH reference range varies by gestational period: First Trimester (weeks 9-12): 0.180-2.990 mIU/L Second Trimester: 0.110-3.980 mIU/L Third Trimester: 0.480-4.710 mIU/L Syed Robles et al. A Practical Approach for the Verifications and Determination of Site- and Trimester-Specific Reference Intervals for Thyroid Function tests in . Thyroid, 2019:29:3:412-420. Ozzie E, et al. 2017 Guidelines of the [place] Thyroid Association for the Diagnosis and Management of Thyroid Disease during and the . Thyroid, 2017:27:3:315-389. Performed By: #### 5 5454-3 #### [facility] CLIA [id number] [address] [place], [place] [address] [address] [place] CNOVon 09-03-2024 CNOV Office Visit (FAMPWS ) DEBRA MARCH ([id number]) 1985 F Date Time Provider Department 09/03/24 2:40 PM FRANTZ BENSON FAMPWS During your visit today, we recorded the following information about you: Pulse Respiration Blood pressure Weight 87/minute 12/minute 101/65 83 kg Height 1.575 m Frantz Benson DO 09/03/2024 5:52 PM Signed CC: Debra Wheeleraria is a 39 year old female who presents to the office for physical HPI: Migraine headaches, long standing, taking Ubrelvy as prescribed, no new symptoms Obesity, BMI 33.46. she knows need for weight loss. HPL Cholesterol, Total Date Value Ref Range Status 02/22/2023 172 0 - 199 mg/dL Final Comment: <200 mg/dL, Desirable 200-239 mg/dL, Borderline high >239 mg/dL, High HDL Cholesterol Date Value Ref Range Status 02/22/2023 35 (L) >40 mg/dL Final Comment: 40-59 mg/dL, Acceptable >59 mg/dL, High: Negative risk factor for coronary heart disease <40 mg/dL, Low: Positive risk factor for coronary heart disease LDL Cholesterol Date Value Ref Range Status 02/22/2023 105 0 - 129 mg/dL Final Comment: <100 mg/dL, Optimal 100-129 mg/dL, Near optimal/above optimal 130-159 mg/dL, Borderline high 160-189 mg/dL, High >189 mg/dL, Very high Secondary prevention optimal LDL Cholesterol levels are recommended to be < 70 mg/dL Triglyceride Date Value Ref Range Status 02/22/2023 159 (H) 30 - 149 mg/dL Final Comment: <150 mg/dL, Normal 150-199 mg/dL, Borderline high 200-499 mg/dL, High >499 mg/dL, Very high Patients receiving either N-Acetylcysteine (NAC) or Metamizole prior to venipuncture, may have falsely depressed results. PAST MEDICAL HISTORY Diagnosis Date Factor 5 Leiden mutation, heterozygous (HCC) Migraine headache Mixed hypercholesterolemia and hypertriglyceridemia 2015 PAST SURGICAL HISTORY Procedure Laterality Date DELIVERY ONLY 11/02/15,01/09/19 , low transverse x 3 TONSILLECTOMY PRIMARY/SECONDARY Tonsillectomy Social History: Social History Tobacco Use Smoking status: Never Smokeless tobacco: Never Vaping Use Vaping status: Never Used Substance Use Topics Alcohol use: Not Currently Drug use: No FAMILY HISTORY Problem Relation Age of Onset Cancer Mother 55 multiple myeloma Hyperlipidemia Father Diabetes Father borderline Hyperlipidemia Brother Breast Cancer Maternal Grandmother Diabetes Maternal Grandmother Heart Maternal Grandmother Heart Maternal Grandfather Cancer Paternal Grandmother Brain Heart Paternal Grandfather Heart Attack Paternal Grandfather Current Outpatient prescriptions: ubrogepant (UBRELVY) 100 mg tablet Take 1 tablet by mouth as needed at onset of migraine. May repeat dose at 2 hours if needed. Max 200 mg per 24 hours. letrozole (FEMARA) 2.5 mg tablet Take 1 tablet by mouth once daily. on cycle days 3-7 Allergies: ALLERGIES Allergen Reactions Amoxicillin Rash Ceftin [Cefuroxime * GI Upset Vomiting and diarrhea Ilosone Rash Naldecon Other: See Comments Penicillin Rash Phenylephrine Other: See Comments hallucinations Xqfwqplhdxb-Uw-Fpee* Other: See Comments hallucinations Pseudoephedrine Other: See Comments hallucinations Red Dye Other: See Comments hallucinations ROS: See HPI PE: 09/03/24 1441 BP: 101/65 Pulse: 87 Resp: 12 Weight: 83 kg (183 lb) Height: 157.5 cm (5' 2.01") Gen: AANDO, NAD, non-toxic appearing, Pleasant, cooperative HEENT: NT/AC, PERRLA, EOMs intact b/l, nares clear and patent b/l, pharynx without erythema, exudate or lesions. MMM, Uvula midline. EACs without erythema or debris. TMs pearly cardenas with intact landmarks b/l. Neck: supple, No cervical LAD, no thyromegaly, no carotid bruits CV: RRR, normal S1 and S2, no murmurs, no gallops, no rubs, Pulses 2+ and symmetric in UE and LE b/l Lungs: normal respiratory effort, CTA b/l, no wheezing or rhonchi or rales Abd: soft, NT, ND, +BS, no hepatosplenomegaly MS: FROM all 4 extremities Neuro: CN II-XII intact b/l, strength 5/5 b/l UE and LE, DTRs 2/4 UE and LE, sensation intact. Skin: warm, dry, intact, No rashes or lesions on exposed skin. No edema, normal pulses ASSESSMENT/PLAN: 1. Well adult exam - ICD9: V70.0, ICD10: Z00.00 (primary diagnosis) - Counseled on healthy diet and regular exercise - Discussed need and benefit for weight loss. BMI 33.46 kg/(m2) - COMPREHENSIVE METABOLIC PANEL - COMPLETE BLOOD COUNT AND DIFFERENTIAL - LIPID PANEL, FASTING - HEMOGLOBIN A1C - THYROID STIMULATING HORMONE 2. Encounter for screening mammogram for malignant neoplasm of breast - ICD9: V76.12, ICD10: Z12.31 - Encouraged monthly BSE - Increase calcium intake with supplements or by diet (goal of 0462-2333 mg/day - Follow up for annual exam in one year. - [facility] SCREENING [facility] [place] 3. Class 1 obesity with body mass ind (more content not included)... Normal [facility] ANTI MULLERIAN HORMONEon Mullerian inhibiting substance [Mass/Vol] 3.59 ng/mL Normal 0.15-7.49 [facility] Comment on above: Order Comment: Speci men Type: BLOOD SPECIMEN Ordering Facility: [facility] Address: [address] [place] [address] Performed By: #### 5 [id number] #### [facility] CLIA [id number] [address] [place] [address] MISC SEND OUT TST 1on 2024 [facility] SCAN TEST RESULTS 1 View results in Scanned Documents link when available Normal [facility] Comment on above: Order Comment: Speci men Type: BLOOD SPECIMEN Ordering Facility: [facility] Address: [address] [place] [address] Performed By: #### M ISC1 #### NON-INTERFACED REF LABS CLIA SEE SCANNED RESULTS [facility] CLIA [id number] [address] [place] [address] REFERRAL LAB 1 (DROP-DOWN) James Normal [facility] Comment on above: Order Comment: Speci men Type: BLOOD SPECIMEN Ordering Facility: [facility] Address: [address] [place] [address] Performed By: #### M ISC1 #### NON-INTERFACED REF LABS CLIA SEE SCANNED RESULTS [facility] CLIA [id number] [address] [place] [address] [place] TEST 1 [employer] Car[employer] Screen Normal [facility] Comment on above: Order Comment: Speci men Type: BLOOD SPECIMEN Ordering Facility: [facility] Address: [address] [place] [address] Performed By: #### M ISC1 #### NON-INTERFACED REF LABS CLIA SEE SCANNED RESULTS [facility] CLIA [id number] [address] [place] [address] [place] CNPDorota 08-26-2024 CNPN Telephone (REIBD) DEBRA MARCH ([id number]) 1985 F Date Time Provider Department 08/26/24 EDER SYKES During your visit today, we recorded the following information about you: Forrest Clamp Truck Driver, Lana 08/26/2024 11:33 AM Signed Name: Debra March called today. : 1985 (home) [phone] (cell) Reason for call: patient called today asking the dr for AMH orders so she will be able to speak to FC and proceed with her IVF The patients preferred pharmacy has been captured for this encounter? Alda Forrest Clamp Truck Driver Duarte Verde MA 08/26/2024 3:33 PM Signed Message sent to pt through MedTel24 that AMH order is being placed. Closing this encounter. Duarte Verde MA August 26, 2024 3:33 PM Allergies As of Date: 08/26/2024 Noted Allergy Reaction AMOXICILLIN 12/18/2014 2 - Rash CEFTIN (CEFUROXIME AXETIL) 12/18/2014 8 - GI Upset Comments: Vomiting and diarrhea ILOSONE 12/18/2014 2 - Rash NALDECON 03/30/2021 14 - Other: See Comments PENICILLIN 12/18/2014 2 - Rash PHENYLEPHRINE 03/30/2021 14 - Other: See Comments Comments: hallucinations [id number] 03/30/2021 14 - Other: See Comments Comments: hallucinations PSEUDOEPHEDRINE 03/30/2021 14 - Other: See Comments Comments: hallucinations RED DYE 03/30/2021 14 - Other: See Comments Comments: hallucinations Date Reviewed: 03/15/2024 Reviewed by: Darline Hernandez LPN - Fully Assessed Reason for Visit: Orders [681] Cmt: amh Prescriptions as of 08/26/2024 - ubrogepant (UBRELVY) 100 mg tablet Take 1 tablet by mouth as needed at onset of migraine. May repeat dose at 2 hours if needed. Max 200 mg per 24 hours. - letrozole (FEMARA) 2.5 mg tablet Take 1 tablet by mouth once daily. on cycle days 3-7 Problem List As Of Date 08/26/2024 Noted Resolved Intractable migraine without status migrainosus*05/10/2016 Mixed hypercholesterolemia and hypertriglycerid*05/21/2015 Migraine headache [G43.909] Factor 5 Leiden mutation, heterozygous (HCC) [D* Chest pain [R07.9] 04/02/2021 Palpitations [R00.2] 04/02/2021 Herniated intervertebral disc of lumbar spine [*08/19/2021 Lumbosacral radiculopathy at L5 [M54.17] 08/19/2021 Acute back pain [M54.9] 02/07/2022 Well adult exam [Z00.00] 02/07/2022 Pre-menstrual mood disorder [F32.81] 02/07/2022 Migraine [G43.909] 02/05/2023 Miscarriage [O03.9] 02/05/2023 Class 1 obesity with body mass index (BMI) of 3*07/21/2023 Situational anxiety [F41.8] 03/15/2024 Acute reaction to situational stress [F43.0] 03/15/2024 Encounter Status:Closed by DUARTE VERDE on 08/26/24 [facility] Telephone (REIBD) DEBRA MARCH ([id number]) 1985 F Date Time Provider Department 08/26/24 EDER SYKES During your visit today, we recorded the following information about you: Allergies As of Date: 08/26/2024 Noted Allergy Reaction AMOXICILLIN 12/18/2014 2 - Rash CEFTIN (CEFUROXIME AXETIL) 12/18/2014 8 - GI Upset Comments: Vomiting and diarrhea ILOSONE 12/18/2014 2 - Rash NALDECON 03/30/2021 14 - Other: See Comments PENICILLIN 12/18/2014 2 - Rash PHENYLEPHRINE 03/30/2021 14 - Other: See Comments Comments: hallucinations [id number] 03/30/2021 14 - Other: See Comments Comments: hallucinations PSEUDOEPHEDRINE 03/30/2021 14 - Other: See Comments Comments: hallucinations RED DYE 03/30/2021 14 - Other: See Comments Comments: hallucinations Date Reviewed: 03/15/2024 Reviewed by: Darline Hernandez LPN - Fully Assessed Reason for Visit: needs FC for IVF [Other] Prescriptions as of 12/08/2024 - ubrogepant (UBRELVY) 100 mg tablet Take 1 tablet by mouth as needed at onset of migraine. May repeat dose at 2 hours if needed. Max 200 mg per 24 hours. Problem List As Of Date 08/26/2024 Noted Resolved Intractable migraine without status migrainosus*05/10/2016 Mixed hypercholesterolemia and hypertriglycerid*05/21/2015 Migraine headache [G43.909] Factor 5 Leiden mutation, heterozygous (HCC) [D* Chest pain [R07.9] 04/02/2021 Palpitations [R00.2] 04/02/2021 Herniated intervertebral disc of lumbar spine [*08/19/2021 Lumbosacral radiculopathy at L5 [M54.17] 08/19/2021 Acute back pain [M54.9] 02/07/2022 Well adult exam [Z00.00] 02/07/2022 Pre-menstrual mood disorder [F32.81] 02/07/2022 Migraine [G43.909] 02/05/2023 Miscarriage [O03.9] 02/05/2023 Class 1 obesity with body mass index (BMI) of 3*07/21/2023 Situational anxiety [F41.8] 03/15/2024 Acute reaction to situational stress [F43.0] 03/15/2024 Encounter Status:Closed by OPHELIA VISION SPECIALIST, LANA on 12/08/24 Normal [facility] CNOVon 08-25-2024 CNOV Office Visit (GMIGFM ) DEBRA MARCH ([id number]) 1985 F Date Time Provider Department 08/25/24 1:00 PM MAREK NIXON [facility] During your visit today, we recorded the following information about you: Marek Nixon LGC 09/15/2024 10:39 PM Addendum REPRODUCTIVE GENETIC COUNSELING INITIAL VISIT - PRECONCEPTION Debra March : 1985 Above identifiers confirmed by Marek Nixon MS, [facility] Consultation requested by: Dr. Eder Sykes Date of clinic visit: August 25, 2024 Clerk Checker offered/present: No - Swedish per EMR Debra March is a 39 year old female referred by Dr. Sykes for preconception genetic counseling to discuss her family medical history. She was unaccompanied to the visit today. PRESENTING PROBLEM: Ms. March is a 39 year old female referred for a preconception genetics visit to discuss her family medical history. Specifically, her older son has a maternally inherited 2p16.3 microdeletion and has high functioning autism and speech delays. Additionally, her younger son has a de sonam 22q11.21>q11.22 microduplication and has a history of developmental delays and apraxia (motor, speech). Ms. March brought copies of these results to the visit which will be scanned into her chart if needed for PGT purposes. She presents today to discuss these results, recurrence risks, and genetic testing and screening options. REPRODUCTIVE HISTORY: Currently : No history: 1. 2015, daughter, FT, CS due to position (josefa side-up), no complications 2. 2018, son, FT, RCS, no complications; maternally inherited 366 kb 2p16.3 microdeletion; high functioning autism and speech delays, "will have normal life" 2020, son, FT, RCS, no complications; de sonam 1046 kb 22q11.21>q11.22 microduplication; developmental delays, apraxia (motor, speech) 2022, SAB at 4-5 weeks Infertility as a couple: Yes. Patient's infertility work-up: Unexplained Partner's infertility work-up: Varicole surgery hx Infertility therapies: Planning for IVF with PGT Parental Screens: CF: No SMA: No Hemoglobinopathies: No; Patient's MCV: 89.0 fL Denominational Diseases: Not at increased risk Other: Yes - Parental follow-up studies were completed for their sons' microarray findings and Ms. March reported the microdeletion was maternally inherited while the microduplication was de sonam. Ms. March's previously had cancer genetic testing which was negative Chromosomal analysis: Patient: No Partner: No Products of conception: No SIGNIFICANT PAST MEDICAL/SURGICAL HISTORIES: Debra: - No major medical concerns Tara: (age 37) - Hodgkin's lymphoma dx 34 s/p chemotherapy and clinical trial - Saw cancer genetics: Common Hereditary Cancers Panel, Myelodysplastic Syndrome/Leukemia Panel with preliminary evidence genes and Lymphoma panel with preliminary evidence genes through [facility] was negative for a pathogenic variant FAMILY HISTORY: A 3-generation pedigree was obtained for the patient and her partner and will be scanned into patient's EMR. Of note: - Genetic and/or Inherited Disease: Yes - Ms. March's older son has a microdeletion and her younger son has a microduplication as noted in the HPI. - Ms. March reported her paternal first-cousin has a daughter with Down syndrome (maternal age 39 at delivery). - Common Disorders: Yes - reported her 's sister has ADHD. - Defects: No - Seizures: No - Recurrent Loss/Infertility: No - ID/DD/Autism: Yes - See HPI regarding Ms. March's sons' histories of autism/delays. She also reported her brother's son may have autism, although he does not have a formal diagnosis. - : No - Other: Yes - Ms. March reported her mother passed from multiple myeloma at 61 (dx. 54). - Ms. March reported her had non-Hodgkin's lymphoma diagnosed at 34, his father passed from AML at age 47, and a paternal aunt had a blood cancer. - Patient's ethnicity: Tristanian, Swedish, Marshallese - Partner's ethnicity: Afghan, Cay[place] Islander - Patient and/or partner did not report -Ghanaian, , Mediterranean, Ashkenazi Denominational and/or Slovak-Algerian/Cajun ancestries unless noted above. - Patient and partner are NOT consanguineous The remainder of the known family history is negative for infertility, recurrent loss, stillbirth, unexplained , defects, malformation syndromes, chromosomal abnormalities, metabolic disorders, developmental delay, mental retardation, known or suspected genetic diseases, and consanguinity except as noted above and on the formal pedigree. GENETIC COUNSELING/DISCUSSION: Ms. March is a 39 year old female presenting for preconception genetic counseling a (more content not included)... Normal [facility] Josef 08-21-2024 CRISTINAN Telephone (ShinyByte) BODEBRA KNAPP ([id number]) 1985 F Date Time Provider Department 08/21/24 MAREK NIXON During your visit today, we recorded the following information about you: Kylee Rodriguez 08/21/2024 2:46 PM Signed Attempted to reach PT in regards to genetic records Left a vague VM on an unidentified voicemail box. Explained that I would also be following up with a MedTel24 message that they could respond there or provided the GCA line for a call back. Kylee Bryan Genetic Counseling Sensitizer Allergies As of Date: 08/21/2024 Noted Allergy Reaction AMOXICILLIN 12/18/2014 2 - Rash CEFTIN (CEFUROXIME AXETIL) 12/18/2014 8 - GI Upset Comments: Vomiting and diarrhea ILOSONE 12/18/2014 2 - Rash NALDECON 03/30/2021 14 - Other: See Comments PENICILLIN 12/18/2014 2 - Rash PHENYLEPHRINE 03/30/2021 14 - Other: See Comments Comments: hallucinations [id number] 03/30/2021 14 - Other: See Comments Comments: hallucinations PSEUDOEPHEDRINE 03/30/2021 14 - Other: See Comments Comments: hallucinations RED DYE 03/30/2021 14 - Other: See Comments Comments: hallucinations Date Reviewed: 03/15/2024 Reviewed by: Darline Hernandez LPN - Fully Assessed 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 May repeat dose at 2 hours if needed. Max 200 mg per 24 hours. - letrozole (FEMARA) 2.5 mg tablet Take 1 tablet by mouth once daily. on cycle days 3-7 Problem List As Of Date 08/21/2024 Noted Resolved Intractable migraine without status migrainosus*05/10/2016 Mixed hypercholesterolemia and hypertriglycerid*05/21/2015 Migraine headache [G43.909] Factor 5 Leiden mutation, heterozygous (HCC) [D* Chest pain [R07.9] 04/02/2021 Palpitations [R00.2] 04/02/2021 Herniated intervertebral disc of lumbar spine [*08/19/2021 Lumbosacral radiculopathy at L5 [M54.17] 08/19/2021 Acute back pain [M54.9] 02/07/2022 Well adult exam [Z00.00] 02/07/2022 Pre-menstrual mood disorder [F32.81] 02/07/2022 Migraine [G43.909] 02/05/2023 Miscarriage [O03.9] 02/05/2023 Class 1 obesity with body mass index (BMI) of 3*07/21/2023 Situational anxiety [F41.8] 03/15/2024 Acute reaction to situational stress [F43.0] 03/15/2024 Encounter Status:Closed by KYLEE RODRIGUEZ on 08/21/24 [facility] [id number] 08-15-2024 HNO ID: [id number] Author: EDER SYKES MD Service: ? Author Type: Physician Type: Filed: 08/15/2024 09:56 Note Text: Debra March is a 39 year old female with infertility and now has two sons with chromosomal abnormality. 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 Long discussion with pt that based on her desires to have another child within a year and her age, it will be in best interest to freeze EMBRYOS and not eggs. Nevertheless, I went over both options with her but focusing on IVF with PGT. TOPICS DISCUSSED: Dropped cycles: Yes Hyperstimulation Syndrome: Yes Ovarian [place]: Yes Freezing eggs/embryos: Yes Potential for no transfer: Yes Surgical procedure and complications: Yes ICSI: yes Number of embryos to transfer: 1 Option for Genetic screening: Yes 10.. Discuss team involved: Yes Additional jarquin points reviewed regarding IVF were as follows: The IVF process with overall risks and benefits were reviewed, including risks of the treatment and risks to offspring. Risks and benefits of specific medications for IVF were reviewed Risks of egg retrieval procedure were reviewed including risk of infection, bleeding, trauma, risks of anesthesia and failure to retrieve any eggs Risks and benefits of IVF and embryo culture were reviewed including failure of fertilization, abnormal embryo development, failure of embryos to develop to the blastocyst stage, lab accidents or damage to eggs or embryos due to human error Risks of embryo transfer including risk of multiple , risk of ectopic and chance of no occurring Risks and benefits of intracytoplasmic sperm injection (ICSI), including lack of fertilization, slightly increased risk of defects, possible increased risk of sex chromosome abnormalities, risk of male infertility in offspring Preimplanatation genetic testing (PGT) was reviewed in detail, including the process in which embryos and biopsied. Indications for PGT were reviewed as well as the types of PGT: testing for aneuploidy (PGT-A), testing for chromosomal structural rearrangements (PGT-SR) and testing for specific genetic mutations (PGT-M). It was reviewed that PGT does not guarantee that a will result and that defects can still occur when PGT results are normal. It was reviewed that there is a possibility that PGT will show that there are no normal embryos to transfer. It was also reviewed that our center currently does not allow transfer of embryos with PGT results that are aneuploid. Risk of misdiagnosis or no result were also reviewed. Risks of embryo biopsy including small risk of damage to the embryo were reviewed. It was also reviewed that there are limited long-term data regarding the health of children conceived from embryos that have been biopsied. Assisted hatching indications and the procedure were reviewed. Oocyte and embryo cryopreservation was reviewed, including the process and the risk of oocytes and embryos not surviving the thaw. Risks of damage or destruction to cryopreserved oocytes and embryos were reviewed, including accidents, power outages, materials issues and human err. Risks to a woman undergoing IVF, including ovarian hyperstimulation syndrome were reviewed as well as possible increased risk of cancer. Risks of also reviewed. A slightly increased risk of defects in babies conceived through IVF was reviewed as well as possible increased risk of imprinting disorders ALICE IVF Treatment Plan: AMH Level/date: 3 - need to be repeated. Sperm Source: Partner Fresh Pretreatment: IVF Pretreatment: None Treatment Protocol: IVF Protocols: GnRH Antagonist Starting Dose: 250 units rFSH or higher pending AFC If Menopur is not an option, may substitute 10 units low-dose HCG and 75 units rFSH (Gonal F or Follistim) for every 75 units Menopur ordered Supplemental meds: None Trigger: Lupron plus up to 5000 Units HCG if low risk of OHSS Insemination: ICSI PGT: she will need PGT. However, since the genetic report is not available, I do not know if she needs PGT-A, M or SR. Cycle Intent: Cycle Intent: Single intent: Conception within 12 months from one retrieval Plan for embryo transfer within 90 days of egg retrieval? yes If freeze all, is this fertility preservation (delayed transfer > 1 year)? No - planning to transfer embryo(s) from cycle within 12 months of retrieval Genetic Carrier Screening: I will refer her to genetic team to discuss further about genetic carrier screening and her family genetic issues. OK to start OCPs for cycle start timing: No due to please see HPI Comments: pt will let me know what they decide to do. Note: Fertility preservation refers to delaying embryo transfer from this cycle for > 1 year. Embryo banking refers to patients w (more content not included)... Normal [facility] CONSULT PROGon 08-15-2024 CONSULT PROG HNO ID: [id number] Author: EDER SYKES MD Service: ? Author Type: Physician Type: Consult Progress Note Filed: 08/15/2024 09:56 Note Text: [facility] In Vitro Fertilization Program Date: 08/15/2024 Patient Name: Debra March HISTORY OF PRESENT ILLNESS: Debra March is a 39 year old female with Debra is a 39 year old female with infertility and fibroids. For the past several months, her sons underwent evaluation for developmental delay and Autism. Her oldest son has autism and another son has a genetic condition. One son missing a chromosome and another son has chromosome duplications. She was told that the best way to have a baby is to have IVF and PGT. The genetic records is not available. She would like to freeze her eggs and hope to use the eggs in 6-12 months. Of note, she wa told by her ob when she was much younger that she should not on ocp because her mother has varicose vein and ?blood clots. Prior note Debra March is a 38 year old female with infertility. Possible age-related. Could also be male factor. Last SA showed lower sperm motility. Since the last visit, her had varicocele repaired in August 2023. They would like to discuss options again. June 25, 2023 Prior note Refer here by her PCP. Have 3 children. Having been TTC since 06/2022. 7, 4 and 2 years old. Had miscarriage in November 2022 and was told that she was around 4-5 weeks . 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 Periods used to be q 28-30 days. Now, period q 25-26 days. Obstetric History T3 L3 SAB1 IAB0 Ectopic0 Multiple0 Live Births3 Fertility Evaluations and Treatments: Eval Checklist Results Date Comments HSG Hysteroscopy Laparoscopy OPK (Ovulation Predictor Kit) Ovarian [place] Saline Ultrasound Semen Analysis Ultrasound Other (See comments) CONTRACEPTIVE HISTORY: MENSTRUAL HISTORY: Menarche Age: Length of Cycle: 25-26 days Regular Days: Menstrual Flow: Menstrual Symptoms: Patient's last menstrual period was 07/10/2023 (exact date). PAST MEDICAL HISTORY Diagnosis Date Factor 5 Leiden mutation, heterozygous (HCC) Migraine headache Mixed hypercholesterolemia and hypertriglyceridemia 2015 PAST SURGICAL HISTORY Procedure Laterality Date DELIVERY ONLY 11/02/15,01/09/19 , low transverse x 3 TONSILLECTOMY PRIMARY/SECONDARY Tonsillectomy FAMILY HISTORY Problem Relation Age of Onset Cancer Mother 55 multiple myeloma Hyperlipidemia Father Diabetes Father borderline Hyperlipidemia Brother Breast Cancer Maternal Grandmother Diabetes Maternal Grandmother Heart Maternal Grandmother Heart Maternal Grandfather Cancer Paternal Grandmother Brain Heart Paternal Grandfather Heart Attack Paternal Grandfather ETHNICITY: SART GROUP: MEDICATIONS: Current Outpatient Medications on File Prior to Visit Medication Sig ubrogepant (UBRELVY) 100 mg tablet Take 1 tablet by mouth as needed at onset of migraine. May repeat dose at 2 hours if needed. Max 200 mg per 24 hours. letrozole (FEMARA) 2.5 mg tablet Take 1 tablet by mouth once daily. on cycle days 3-7 No current facility-administered medications on file prior to visit. ALLERGIES: Amoxicillin, Ceftin [Cefuroxime Axetil], Ilosone, Naldecon, Penicillin, Phenylephrine, Wshbyvxkbxn-Lw-Jzxlxsssuysxo, Pseudoephedrine, and Red Dye Blood Type: No results found for this basename: [facility] OCCUPATION/EXERCISE: Occupation: Exercise: Partner Information Partner's Name: Tara March Partner's : 04/15/1987 Partner's Partner's Ethnicity: Partner's Race: Medications: pantropazole. Additional Partner Assessment Findings: He has Hodgkin lymphoma 2 years ago s/p chemotherapy and immunotherapy. Last treatment was 07/12. Currently on remission. SA was done a few months ago. Assessment and Plan Debra March is a 39 year old female with infertility and now has two sons with chromosomal abnormality. 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 Long discussion with pt that based on her desires to have another child within a year and her age, it will be in best interest to freeze EMBRYOS and not eggs. Nevertheless, I went over both options with her but focusing on IVF with PGT. TOPICS DISCUSSED: Dropped cycles: Yes Hyperstimulation Syndrome: Yes Ovarian [place]: Yes Freezing eggs/embryos: Yes Potential for no transfer: Yes Surgical procedure and complications: Yes ICSI: yes Number of embryos to transfer: 1 Option for Genetic screening: Yes 10.. Discuss team involved: Yes Additional jarquin points reviewed regarding IVF were as follows: The IVF process with overall risks and benefits were reviewed, including risks of the treatment and risks to offspring. Risks and benefits of specific medica (more content not included)... Normal [facility] CNPNon 08-07-2024 [facility] Telephone (REIBD) DEBRA MARCH ([id number]) 1985 F Date Time Provider Department 08/07/24 TANJA ABAD During your visit today, we recorded the following information about you: Madison Contreras 08/07/2024 2:15 PM Signed IVF Patient has questions about freezing eggs and next steps. Duarte Verde MA 08/08/2024 11:00 AM Signed Called pt x 1, no answer and VM full. Per message from IVF RN yesterday - needs to make appointment with ALICE physician for consult to review. I will send a follow up message to the patient via [employer]. Closing this encounter. Duarte Verde MA August 08, 2024 11:00 AM Allergies As of Date: 08/07/2024 Noted Allergy Reaction AMOXICILLIN 12/18/2014 2 - Rash CEFTIN (CEFUROXIME AXETIL) 12/18/2014 8 - GI Upset Comments: Vomiting and diarrhea ILOSONE 12/18/2014 2 - Rash NALDECON 03/30/2021 14 - Other: See Comments PENICILLIN 12/18/2014 2 - Rash PHENYLEPHRINE 03/30/2021 14 - Other: See Comments Comments: hallucinations [id number] 03/30/2021 14 - Other: See Comments Comments: hallucinations PSEUDOEPHEDRINE 03/30/2021 14 - Other: See Comments Comments: hallucinations RED DYE 03/30/2021 14 - Other: See Comments Comments: hallucinations Date Reviewed: 03/15/2024 Reviewed by: Darline Hernandez, JOSE - Fully Assessed Prescriptions as of 08/08/2024 - ubrogepant (UBRELVY) 100 mg tablet Take 1 tablet by mouth as needed at onset of migraine. May repeat dose at 2 hours if needed. Max 200 mg per 24 hours. - letrozole (FEMARA) 2.5 mg tablet Take 1 tablet by mouth once daily. on cycle days 3-7 Problem List As Of Date 08/07/2024 Noted Resolved Intractable migraine without status migrainosus*05/10/2016 Mixed hypercholesterolemia and hypertriglycerid*05/21/2015 Migraine headache [G43.909] Factor 5 Leiden mutation, heterozygous (HCC) [D* Chest pain [R07.9] 04/02/2021 Palpitations [R00.2] 04/02/2021 Herniated intervertebral disc of lumbar spine [*08/19/2021 Lumbosacral radiculopathy at L5 [M54.17] 08/19/2021 Acute back pain [M54.9] 02/07/2022 Well adult exam [Z00.00] 02/07/2022 Pre-menstrual mood disorder [F32.81] 02/07/2022 Migraine [G43.909] 02/05/2023 Miscarriage [O03.9] 02/05/2023 Class 1 obesity with body mass index (BMI) of 3*07/21/2023 Situational anxiety [F41.8] 03/15/2024 Acute reaction to situational stress [F43.0] 03/15/2024 Encounter Status:Closed by DUARTE VERDE on 08/08/24 [facility] 08-06-2024 [facility] Telephone (REIBD) DEBRA MARCH ([id number]) 1985 F Date Time Provider Department 08/06/24 EDER SYKES During your visit today, we recorded the following information about you: Madison Contreras 08/06/2024 2:19 PM Signed IVF Patient is calling in wanting information on setting up a appointment to freeze eggs. Sofy Dodson RN 08/07/2024 12:22 PM Signed Mychart sent to patient and instructed to make appointment with [facility] physician for consult. Sofy Dodson RN August 07, 2024 12:22 PM Allergies As of Date: 08/06/2024 Noted Allergy Reaction AMOXICILLIN 12/18/2014 2 - Rash CEFTIN (CEFUROXIME AXETIL) 12/18/2014 8 - GI Upset Comments: Vomiting and diarrhea ILOSONE 12/18/2014 2 - Rash NALDECON 03/30/2021 14 - Other: See Comments PENICILLIN 12/18/2014 2 - Rash PHENYLEPHRINE 03/30/2021 14 - Other: See Comments Comments: hallucinations [id number] 03/30/2021 14 - Other: See Comments Comments: hallucinations PSEUDOEPHEDRINE 03/30/2021 14 - Other: See Comments Comments: hallucinations RED DYE 03/30/2021 14 - Other: See Comments Comments: hallucinations Date Reviewed: 03/15/2024 Reviewed by: Darline Hernandez LPN - Fully Assessed Prescriptions as of 08/07/2024 - ubrogepant (UBRELVY) 100 mg tablet Take 1 tablet by mouth as needed at onset of migraine. May repeat dose at 2 hours if needed. Max 200 mg per 24 hours. - letrozole (FEMARA) 2.5 mg tablet Take 1 tablet by mouth once daily. on cycle days 3-7 Problem List As Of Date 08/06/2024 Noted Resolved Intractable migraine without status migrainosus*05/10/2016 Mixed hypercholesterolemia and hypertriglycerid*05/21/2015 Migraine headache [G43.909] Factor 5 Leiden mutation, heterozygous (HCC) [D* Chest pain [R07.9] 04/02/2021 Palpitations [R00.2] 04/02/2021 Herniated intervertebral disc of lumbar spine [*08/19/2021 Lumbosacral radiculopathy at L5 [M54.17] 08/19/2021 Acute back pain [M54.9] 02/07/2022 Well adult exam [Z00.00] 02/07/2022 Pre-menstrual mood disorder [F32.81] 02/07/2022 Migraine [G43.909] 02/05/2023 Miscarriage [O03.9] 02/05/2023 Class 1 obesity with body mass index (BMI) of 3*07/21/2023 Situational anxiety [F41.8] 03/15/2024 Acute reaction to situational stress [F43.0] 03/15/2024 Encounter Status:Closed by SOFY DODSON on 08/07/24 Normal [facility] XR CHEST 1 VIEWon 07-17-2024 XR CHEST 1 VIEW ORIGINAL EXAMINATION: ONE XRAY VIEW OF THE CHEST07/17/2024 9:24 am COMPARISON: 11/25/2021 HISTORY: ORDERING SYSTEM PROVIDED HISTORY: Reason for Exam: cough FINDINGS: Cardiomediastinal contours are within normal limits. No pulmonary edema. Some hilar fullness is seen bilaterally, and appears overall similar to the prior exam. A region streaky opacification within the middle left lung is seen. Atelectatic changes at the right lower lung are also noted. No pneumothorax or pleural effusion. No acute osseous abnormalities. IMPRESSION: Streaky opacification at the mid left lung may represent an infectious process. Short-term follow-up is advised. I have personally reviewed the images of this examination and agree with the resident's findings and interpretation. Interpreted by: Ramirez Cardenas DO Preliminary Report By: Idalmis Golden Electronically signed By Ramirez Cardenas DO Dictated Date: 07/17/2024 9:25:21 AM Prelim Date: 07/17/2024 9:31:22 AM Sign Date: 07/17/2024 9:31:22 AM Ordering Provider: JOSE EDUARDO Lopez [facility] MAMMOGRAM DIAGNOSTIC RIG T W/TOMStone 05-06-2024 MA MAMMOGRAM DIAGNOSTIC RIGHT W/PATRIZIA ORIGINAL FROM: [address] [address] PROCEDURE FOR: DEBRA MARCH [address] [place] [address] Home: PID#: [id number] Exam#: [id number] : 1985 Age: 39 TO: MICHAEL SHER MD [facility] [address] [facility] [address] [place], [place] [address] EXAMINATION: DIAGNOSTIC DIGITAL RIGHT BREAST MAMMOGRAM WITH TOMOSYNTHESIS, 05/06/2024 8:58 am TECHNIQUE: Diagnostic mammography of the right breast was performed with tomosynthesis. 2D standard and 3D tomosynthesis combination imaging performed through the right breast. Computer aided detection was utilized in the interpretation of this exam. Current study was also evaluated with a Computer Aided Detection (CAD) system. COMPARISON: April 22, 2024, March 09, 2023 HISTORY: ORDERING SYSTEM PROVIDED HISTORY: Reason for Exam: RT BREAST ASYMMETRY FINDINGS: BREAST DENSITY: The breasts are heterogeneously dense, which may obscure small masses. In the right breast central to the nipple at anterior depth on the CC spot compression view, the previously seen asymmetry probably represents normal fibroglandular tissue. No other significant masses, calcifications, or other findings. IMPRESSION: The previously seen asymmetry probably representing normal fibroglandular tissue in the right breast central to the nipple anterior depth on the CC spot compression view. Right breast ultrasound was performed and will be reported separately. BIRADS: BI-RADS: 0: Incomplete: Need Additional Imaging Evaluation RECALL: immediate RECALL TYPE: Right US LETTER SENT: Abnormal-Needs additional work up BI-RADS 0 Interpreted by: Geeta Guajardo Preliminary Report By: Geeta Guajadro Electronically signed By Geeta Guajardo Dictated Date: 05/06/2024 9:54:20 AM Prelim Date: 05/06/2024 9:56:59 AM Sign Date: 05/06/2024 9:56:59 AM Ordering Provider: MICHAEL SHER CLINICAL: 1.4 CM ASYMMETRY IN THE RETROAREOLAR RIGHT BREAST. Data Designer: TRISTEN DAY RT(R)(M) letter sent: Abnormal-Needs additional work up BI-RADS 0 Mammogram BI-RADS: 0 Indeterminate Normal [facility] US BREAST RIGHT LIMITEDon US BREAST RIGHT LIMITED ORIGINAL FROM: [facility] [address] [place] [address] PROCEDURE FOR: DEBRA MARCH [address] [place] [address] Home: PID#: [id number] Exam#: [id number] : 1985 Age: 39 TO: MICHAEL SHER MD [facility] [address] [place], [place] [address] EXAMINATION: ULTRASOUND OF THE RIGHT BREAST 05/06/2024 8:58 am TECHNIQUE: Color flow and villanueva scale targeted ultrasound of the retroareolar and central right breast were performed. Permanently stored images were reviewed. COMPARISON: May 06, 2024, April 22, 2024, March 09, 2023 HISTORY: ORDERING SYSTEM PROVIDED HISTORY: Reason for Exam: RT BREAST ASYMMETRY FINDINGS: In the retroareolar and central region of the right breast, normal breast parenchyma is identified without a discrete solid or cystic mass to correlate with the area of interest on mammography, which likely represents normal fibroglandular tissue. IMPRESSION: No suspicious sonographic finding in the retroareolar and central region of the right breast, with mammographic findings likely representing normal fibroglandular tissue. The patient may return to annual mammographic screening. BIRADS: BI-RADS: 2: Benign RECALL: return to screening RECALL TYPE: mammo LETTER SENT: Normal BI-RADS 1 and 2 Interpreted by: Geeta Guajardo Preliminary Report By: Geeta Guajardo Electronically signed By Geeta Guajardo Dictated Date: 05/06/2024 10:02:30 AM Prelim Date: 05/06/2024 10:03:45 AM Sign Date: 05/06/2024 10:03:45 AM Ordering Provider: MICHAEL SHER CLINICAL: MAMMOGRAPHIC ASYMMETRY RIGHT BREAST RETROAREOLAR. Data Designer: GEOVANNA ENRIQUE, [facility] letter sent: Normal BI-RADS 1 and 2 Ultrasound BI-RADS: 2 Benign Normal [facility] Josef 04-28-2024 JO Telephone (FAMPWS) DEBRA MARCH ([id number]) 1985 F Date Time Provider Department 04/28/24 FRANTZ BENSON During your visit today, we recorded the following information about you: Allergies As of Date: 04/28/2024 Noted Allergy Reaction AMOXICILLIN 12/18/2014 2 - Rash CEFTIN (CEFUROXIME AXETIL) 12/18/2014 8 - GI Upset Comments: Vomiting and diarrhea ILOSONE 12/18/2014 2 - Rash NALDECON 03/30/2021 14 - Other: See Comments PENICILLIN 12/18/2014 2 - Rash PHENYLEPHRINE 03/30/2021 14 - Other: See Comments Comments: hallucinations [id number] 03/30/2021 14 - Other: See Comments Comments: hallucinations PSEUDOEPHEDRINE 03/30/2021 14 - Other: See Comments Comments: hallucinations RED DYE 03/30/2021 14 - Other: See Comments Comments: hallucinations Date Reviewed: 03/15/2024 Reviewed by: Darline Hernandez LPN - Fully Assessed Prescriptions as of 08/26/2024 - ubrogepant (UBRELVY) 100 mg tablet Take 1 tablet by mouth as needed at onset of migraine. May repeat dose at 2 hours if needed. Max 200 mg per 24 hours. - letrozole (FEMARA) 2.5 mg tablet Take 1 tablet by mouth once daily. on cycle days 3-7 Problem List As Of Date 04/28/2024 Noted Resolved Intractable migraine without status migrainosus*05/10/2016 Mixed hypercholesterolemia and hypertriglycerid*05/21/2015 Migraine headache [G43.909] Factor 5 Leiden mutation, heterozygous (HCC) [D* Chest pain [R07.9] 04/02/2021 Palpitations [R00.2] 04/02/2021 Herniated intervertebral disc of lumbar spine [*08/19/2021 Lumbosacral radiculopathy at L5 [M54.17] 08/19/2021 Acute back pain [M54.9] 02/07/2022 Well adult exam [Z00.00] 02/07/2022 Pre-menstrual mood disorder [F32.81] 02/07/2022 Migraine [G43.909] 02/05/2023 Miscarriage [O03.9] 02/05/2023 Class 1 obesity with body mass index (BMI) of 3*07/21/2023 Situational anxiety [F41.8] 03/15/2024 Acute reaction to situational stress [F43.0] 03/15/2024 Encounter Status:Closed by MAUREEN WRIGHT LPN on 08/26/24 [facility] Telephone (FAMPWS) DEBRA MARCH ([id number]) 1985 F Date Time Provider Department 04/28/24 FRANTZ BENSON [facility] During your visit today, we recorded the following information about you: Jane Bautista LPN 04/28/2024 10:21 AM Signed Patient had a mammogram complete at [place] and she was called back for a diagnostic mammogram. She wants to complete at [facility]. Did explain that we would need the report and images in order to order diagnostic mammogram and to compare to images. Vianey Arias 04/28/2024 12:27 PM Signed Pt came in and gave PSS the report for her Mammogram screening that was done in [place]. They are in the scanned documents folder. What is the easiest way for patient to give us her images? Please advise. Darline Hernandez LPN 04/28/2024 4:07 PM Signed To have them scanned in . So the radiologist has them to compare. Frantz Benson DO 04/30/2024 7:49 AM Signed Agree with below Please notify patient Saray Garcia LPN 04/30/2024 11:23 AM Signed Pt notified. Pt advises that she di give front sight attacher written report to be scanned in and she did get the images on a cd and took it to the [facility] to be scanned into her chart. Pt advises that she is just going to keep her diagnostic mammogram appointment at [facility] on 05/06 d/t she didn't think she would get a sooner appointment at [facility] in [place]. Advised her to also bring those results in to have them scanned into her chart. Pt verbalizes understanding. She advises that if she does have anything wrong she would seek treatment at [facility]. Saray Garcia LPN Allergies As of Date: 04/28/2024 Noted Allergy Reaction AMOXICILLIN 12/18/2014 2 - Rash CEFTIN (CEFUROXIME AXETIL) 12/18/2014 8 - GI Upset Comments: Vomiting and diarrhea ILOSONE 12/18/2014 2 - Rash NALDECON 03/30/2021 14 - Other: See Comments PENICILLIN 12/18/2014 2 - Rash PHENYLEPHRINE 03/30/2021 14 - Other: See Comments Comments: hallucinations [id number] 03/30/2021 14 - Other: See Comments Comments: hallucinations PSEUDOEPHEDRINE 03/30/2021 14 - Other: See Comments Comments: hallucinations RED DYE 03/30/2021 14 - Other: See Comments Comments: hallucinations Date Reviewed: 03/15/2024 Reviewed by: Darline Hernandez LPN - Fully Assessed Reason for Visit: Mammogram Abnormality [4162] Prescriptions as of 04/30/2024 - ubrogepant (UBRELVY) 100 mg tablet Take 1 tablet by mouth as needed at onset of migraine. May repeat dose at 2 hours if needed. Max 200 mg per 24 hours. - letrozole (FEMARA) 2.5 mg tablet Take 1 tablet by mouth once daily. on cycle days 3-7 Problem List As Of Date 04/28/2024 Noted Resolved Intractable migraine without status migrainosus*05/10/2016 Mixed hypercholesterolemia and hypertriglycerid*05/21/2015 Migraine headache [G43.909] Factor 5 Leiden mutation, heterozygous (HCC) [D* Chest pain [R07.9] 04/02/2021 Palpitations [R00.2] 04/02/2021 Herniated intervertebral disc of lumbar spine [*08/19/2021 Lumbosacral radiculopathy at L5 [M54.17] 08/19/2021 Acute back pain [M54.9] 02/07/2022 Well adult exam [Z00.00] 02/07/2022 Pre-menstrual mood disorder [F32.81] 02/07/2022 Migraine [G43.909] 02/05/2023 Miscarriage [O03.9] 02/05/2023 Class 1 obesity with body mass index (BMI) of 3*07/21/2023 Situational anxiety [F41.8] 03/15/2024 Acute reaction to situational stress [F43.0] 03/15/2024 Encounter Status:Closed by SARAY GARCIA on 04/30/24 [facility] MAMMOGRAM SCREENING BILAT ERAL W/TOMOon 04-27-2024 MA MAMMOGRAM SCREENING BILATERAL W/PATRIZIA ADDENDUM ADDENDUM: . BIRADS: BI-RADS: 0: Incomplete: Need Additional Imaging Evaluation RECALL: immediate RECALL TYPE: Right mammo LETTER SENT: Abnormal-Needs additional work up BI-RADS 0 Interpreted by: Harshad Soto MD Preliminary Report By: Harshad Soto MD Electronically signed By Harshad Soto MD Dictated Date: 04/27/2024 5:47:13 AM Prelim Date: 04/27/2024 5:48:22 AM Sign Date: 04/27/2024 5:48:22 AM Ordering Provider: MICHAEL SHER [facility] [address] [place] [address] PROCEDURE FOR: DEBRA MARCH [address] [place] [address] Home: PID#: [id number] Exam#: [id number] : 1985 Age: 39 TO: MICHAEL SHER MD [facility] [place] [address] [place] [id number] EXAMINATION: SCREENING DIGITAL BILATERAL MAMMOGRAM WITH TOMOSYNTHESIS, 04/22/2024 2:27 pm TECHNIQUE: Screening mammography of the bilateral breasts was performed with tomosynthesis. 2D standard and 3D tomosynthesis combination imaging performed through both breasts in the MLO and CC projection. Computer aided detection was utilized in the interpretation of this exam. COMPARISON: 03/09/2023 HISTORY: Breast cancer screening. FINDINGS: BREAST DENSITY: The breasts are heterogeneously dense, which may obscure small masses. The density of both breasts is slightly increased compared to the prior study. Focal asymmetry with ill-defined margins is present in the anterior depth of the retroareolar right breast on the RCC view only measuring 1.4 cm. There are no other significant masses, calcifications, or other findings. IMPRESSION: The 1.4 cm asymmetry in the retroareolar right breast is most likely a summation of under compressed breast tissue, but is indeterminate. A diagnostic mammogram is recommended to include a spot compression RCC view and a full field RML view. If a mass is confirmed, then an ultrasound will be recommended. We will contact the patient to arrange for the exam. Tyrer Cuzick risk calculations, generated with the history provided, report this patient's 10 year risk and lifetime risk for developing breast cancer at a 2.1% and 18.0%, respectively. Based on this assessment tool, if the patient's calculated lifetime risk is below 20%, then the patient is considered at average risk for developing breast cancer. If the patient's calculated lifetime risk is at or above 20%, then the patient is considered high risk for developing breast cancer and may be a candidate for supplemental breast MRI screening in addition to annual mammographic screening per the [employer]. BIRADS: BI-RADS: 0: Incomplete: Need Additional Imaging Evaluation RECALL: immediate RECALL TYPE: LETTER SENT: Abnormal-Needs additional work up BI-RADS 0 Interpreted by: Harshad Soto MD Preliminary Report By: Harshad Soto MD Electronically signed By Harshad Soto MD Dictated Date: 04/27/2024 5:16:35 AM Prelim Date: 04/27/2024 5:27:52 AM Sign Date: 04/27/2024 5:27:52 AM Ordering Provider: MICHAEL SHER Data Designer: LUCIANA RODRIGUEZ RT(R)(M) letter sent: Abnormal-Needs additional work up BI-RADS 0 Mammogram BI-RADS: 0 Indeterminate Normal [facility] 03-15-2024 CNOV Office Visit (FAMPWS ) DEBRA MARCH ([id number]) 1985 F Date Time Provider Department 03/15/24 10:00 AM [facility] your visit today, we recorded the following information about you: Pulse Respiration Blood pressure Weight 86/minute 14/minute 120/64 81.6 kg Frantz Benson DO 03/15/2024 12:49 PM Signed CC: Debra March is a 38 year old female who presents to the office for follow up HPI: At last OFFICE VISIT 2 months ago virtual visit on 01/18/24 She has concerns that her 2 sons have autism. She has been under a lot of stress with trying to get her sons into the right specialists for evaluation for Autism and the specialists are concerned that both of her sons do have Autism. Her has recently completed chemotherapy and treatment for Hodgkin's lymphoma. She is very concerned that there is an environmental exposure that is present in their home or around their neighborhood that cold be the precipitating factor for her husbands cancer and the son's Autism. She feels overwhelmed at times. She denies any SI or HI. She is taking Lexapro 5 mg as prescribed without SE to medication. Currently She has been able to determine that her youngest son doesn't have Autism but has Apraxia. She is working with Speech therapy to help him. She has had mixed opinions on her middle child, other son, on whether or not he has mold toxicity and ADD vs. Autism disorder or intellectual delay. She is really working with specialists in functional medicine [place] to help her sons. She wants people to know that she just cares about what is best for her children. She and her family have moved out of their current home due to above mold/environmental health concerns and they are living with her father, which is going fine without concerns. She doesn't want to be taking the Lexapro- she overall feels that she is coping with her anxiety okay without being on it. She has a lot of support from her dad as well as her . No SI or HI. She denies depression symptoms. PAST MEDICAL HISTORY Diagnosis Date Factor 5 Leiden mutation, heterozygous (HCC) Migraine headache Mixed hypercholesterolemia and hypertriglyceridemia 2015 PAST SURGICAL HISTORY Procedure Laterality Date DELIVERY ONLY 11/02/15,01/09/19 , low transverse x 3 TONSILLECTOMY PRIMARY/SECONDARY Tonsillectomy Current Outpatient Medications Medication Sig ubrogepant (UBRELVY) 100 mg tablet Take 1 tablet by mouth as needed at onset of migraine. May repeat dose at 2 hours if needed. Max 200 mg per 24 hours. letrozole (FEMARA) 2.5 mg tablet Take 1 tablet by mouth once daily. on cycle days 3-7 No current facility-administered medications for this visit. ALLERGIES Allergen Reactions Amoxicillin Rash Ceftin [Cefuroxime * GI Upset Vomiting and diarrhea Ilosone Rash Naldecon Other: See Comments Penicillin Rash Phenylephrine Other: See Comments hallucinations Rztxcspjapl-Zx-Yehe* Other: See Comments hallucinations Pseudoephedrine Other: See Comments hallucinations Red Dye Other: See Comments hallucinations Social History Tobacco Use Smoking status: Never Smokeless tobacco: Never Vaping Use Vaping status: Never Used Substance Use Topics Alcohol use: Not Currently Drug use: No ROS: See HPI PE: BP 120/64 Pulse 86 Resp 14 Wt 180 lb (81.6kg) SpO2 97% LMP 07/10/2023 Gen: AANDOX3, NAD, non-toxic appearing, mildly anxious, well dressed, no distress HEENT: PERRLA, EOMs intact b/l, nares without drainage, pharynx without erythema, exudate, lesions, or drainage. Uvula midline. Neck: No LAD, no thyromegaly, no meningismus. CV: RRR, no murmur Lungs: CTA b/l, no wheezing Skin: No rashes, lesions, or wounds on exposed skin. No edema, normal pulses ASSESSMENT/PLAN: 1. Acute reaction to situational stress - ICD9: 308.9, ICD10: F43.0 (primary diagnosis) She has stopped her lexapro Okay to consider prozac or alternative if she is interested in this. Also no SI or HI. No depression symptoms She seems appropriately concerned about both of her son's wellbeing and health 2. Encounter for screening examination for other mental health and behavioral disorders - ICD9: V79.8, ICD10: Z13.39 She has stopped her lexapro Okay to consider prozac or alternative if she is interested in this. Also no SI or HI. No depression symptoms She seems appropriately concerned about both of her son's wellbeing and health - ANXIETY SCREENING 3. Situational anxiety - ICD9: 300.09, ICD10: F41.8 She has stopped her lexapro Okay to consider prozac or alternative if she is interested in this. Also no SI or HI. No depression symptoms She seems appropriately concerned about both of her son's wellbeing and health Frantz Benson, DO I spent 35 minutes in the visit, with more than 50% (more content not included)... Normal [facility] HEAVY METALS SCRN BLon 01-09 ARSENIC, BLOOD <10.0 Normal <=12.0 [facility] Comment on above: Order Comment: [facility] [place] Type: BLOOD SPECIMEN Ordering Facility: [facility] Address: [address] [place] [address] Result Comment: INTE RPRETIVE INFORMATION: Arsenic, Blood Elevated results may be due to skin or collection-related contamination, including the use of a noncertified metal-free collection/transport tube. If contamination concerns exist due to elevated levels of blood arsenic, confirmation with a second specimen collected in a certified metal-free tube is recommended. Potentially toxic ranges for blood arsenic: Greater than or equal to 600 ug/L. Blood arsenic is for the detection of recent exposure poisoning only. Blood arsenic levels in healthy subjects vary considerably with exposure to arsenic in the diet and the environment. A 24-hour urine arsenic is useful for the detection of chronic exposure. This test was developed and its performance characteristics determined by [employer]. It has not been cleared or approved by the [place] Food and Drug Administration. This test was performed in a CLIA certified laboratory and is intended for clinical purposes. Performed By: #### H EVMET #### [facility] CLIA [id number] [address] [place] [address] LEAD <2.0 Normal <=4.9 [facility] Comment on above: Order Comment: [facility] [place] Type: BLOOD SPECIMEN Ordering Facility: [facility] Address: [address], [place] [address] Result Comment: INTE RPRETIVE INFORMATION: Lead, Blood (Venous) Analysis performed by Inductively Coupled Plasma-Mass Spectrometry (ICP-MS). Elevated results may be due to skin or collection-related contamination, including the use of a noncertified lead-free tube. If contamination concerns exist due to elevated levels of blood lead, confirmation with a second specimen collected in a certified lead-free tube is recommended. Information sources for blood lead reference intervals and interpretive comments include the CDC's "Childhood Lead Poisoning Prevention: Recommended Actions Based on Blood Lead Level" and the Adult Blood Lead Epidemiology and Surveillance: Reference Blood Lead Levels (BLLs) for Adults in the [place]." Thresholds and time intervals for retesting, medical evaluation, and response vary by state and regulatory body. Contact your State Department of Health and/or applicable regulatory agency for specific guidance on medical management recommendations. This test was developed and its performance characteristics determined by [facility]. It has not been cleared or approved by the U.S. Food and Drug Administration. This test was performed in a CLIA-certified laboratory and is intended for clinical purposes. Group Concentration Comment Children 3.5-19.9 ug/dL Children under the age of 6 years are the most vulnerable to the harmful effects of lead exposure. Environmental investigation and exposure history to identify potential sources of lead. Biological and nutritional monitoring are recommended. Follow-up blood lead monitoring is recommended. 20-44.9 ug/dL Lead hazard reduction and prompt medical evaluation are recommended. Contact a Pediatric Environmental Health Specialty Unit or poison control center for guidance. Greater than Critical. Immediate medical 44.9 ug/dL evaluation, including detailed neurological exam is recommended. Consider chelation therapy when symptoms of lead toxicity are present. Contact a Pediatric Environmental Health Specialty Unit or poison control center for assistance. Adult 5-19.9 ug/dL Medical removal is recommended for women or those who are trying or may become . Adverse health effects are possible. Reduced lead exposure and increased blood lead monitoring are recommended. 20-69.9 ug/dL Adverse health effects are indicated. Medical removal from lead exposure is required by OSHA if blood lead level exceeds 50 ug/dL. Prompt medical evaluation is recommended. Greater than Critical. Immediate medical 69.9 ug/dL evaluation is recommended. Consider chelation therapy when symptoms of lead toxicity are present. Performed By: #### H EVMET #### [facility] CLIA [id number] [address] [place] [address] MERCURY <2.5 Normal <=10.0 [facility] Comment on above: Order Comment: [facility] [place] Type: BLOOD SPECIMEN Ordering Facility: [facility] Address: [address] [place] [address] Result Comment: INTE RPRETIVE INFORMATION: Mercury, Blood Elevated results may be due to skin or collection-related contamination, including the use of a noncertified metal-free collection/transport tube. If contamination concerns exist due to elevated levels of blood mercury, confirmation with a second specimen collected in a certified metal-free tube is recommended. Blood mercury levels predominantly reflect recent exposure and are most useful in the diagnosis of acute poisoning as blood mercury concentrations rise sharply and fall quickly over several days after ingestion. Blood concentrations in unexposed individuals rarely exceed 20 ug/L. The provided reference interval relates to inorganic mercury concentrations. Dietary and non-occupational exposure to organic mercury forms may contribute to an elevated total mercury result. Clinical presentation after toxic exposure to organic mercury may include dysarthria, ataxia and constricted vision bryant with mercury blood concentrations from 20 to 50 ug/L. This test was developed and its performance characteristics determined by [facility]. It has not been cleared or approved by the US Food and Drug Administration. This test was performed in a CLIA certified laboratory and is intended for clinical purposes. Performed By: [email or web address] [address] [place] [address] Social Service Worker: Barry Walton MD, PhD CLIA Number: [id number] Performed By: #### H EVMET #### [facility] CLIA [id number] [address] [place] [address] Josef 12-03-2023 CNPN Telephone (PSYAGR) DEBRA MARCH ([id number]) 1985 F Date Time Provider Department 12/03/23 NO PCP PSYAGR During your visit today, we recorded the following information about you: Dorothea Oconnor 12/03/2023 2:02 PM Signed Reason for call; Returning voicemail. Schedule appointment with psychology Dr. Horne Allergies As of Date: 12/03/2023 Noted Allergy Reaction AMOXICILLIN 12/18/2014 2 - Rash CEFTIN (CEFUROXIME AXETIL) 12/18/2014 8 - GI Upset Comments: Vomiting and diarrhea ILOSONE 12/18/2014 2 - Rash NALDECON 03/30/2021 14 - Other: See Comments PENICILLIN 12/18/2014 2 - Rash PHENYLEPHRINE 03/30/2021 14 - Other: See Comments Comments: hallucinations [id number] 03/30/2021 14 - Other: See Comments Comments: hallucinations PSEUDOEPHEDRINE 03/30/2021 14 - Other: See Comments Comments: hallucinations RED DYE 03/30/2021 14 - Other: See Comments Comments: hallucinations Date Reviewed: 10/30/2023 Reviewed by: Maureen Wright LPN - Fully Assessed Reason for Visit: New Patient [172] Prescriptions as of 12/03/2023 - escitalopram oxalate (LEXAPRO) 5 mg tablet Take 1 tablet by mouth once daily. - ubrogepant (UBRELVY) 100 mg tablet Take 1 tablet by mouth as needed at onset of migraine. May repeat dose at 2 hours if needed. Max 200 mg per 24 hours. - letrozole (FEMARA) 2.5 mg tablet Take 1 tablet by mouth once daily. on cycle days 3-7 - Sodium Fluoride (PREVIDENT LumiThera) 1.1 % 1 Application by DENTAL route once daily. Dx: dental caries - naproxen (NAPROSYN) 500 mg tablet Take 1 tablet two times per day (with meals) for 5-7 days for menstrual migraine. Problem List As Of Date 12/03/2023 Noted Resolved Intractable migraine without status migrainosus*05/10/2016 Mixed hypercholesterolemia and hypertriglycerid*05/21/2015 Migraine headache [G43.909] Factor 5 Leiden mutation, heterozygous (HCC) [D* Chest pain [R07.9] 04/02/2021 Palpitations [R00.2] 04/02/2021 Herniated intervertebral disc of lumbar spine [*08/19/2021 Lumbosacral radiculopathy at L5 [M54.17] 08/19/2021 Acute back pain [M54.9] 02/07/2022 Well adult exam [Z00.00] 02/07/2022 Pre-menstrual mood disorder [F32.81] 02/07/2022 Migraine [G43.909] 02/05/2023 Miscarriage [O03.9] 02/05/2023 Class 1 obesity with body mass index (BMI) of 3*07/21/2023 Encounter Status:Closed by DOROTHEA OCONNOR on 12/03/23 Normal [facility] Follicle Diameter USon 10-18 Indication Follicular monitoring Impression Uterus: Fibroid(s): 1. Size 12 mm x 8 mm x 10 mm. Mean 10.2 mm. Vol 0.540 cm 2. Size 19 mm x 14 mm x 16 mm. Mean 16.1 mm. Vol 2.148 cm 3. Size 11 mm x 6 mm x 11 mm. Mean 9.4 mm. Vol 0.403 cm Right Ovary: Size 39 mm x 29 mm x 24 mm Follicle(s): Size 20.0 mm x 12.8 mm. Mean 16.4 mm. Vol 1.702 cm 20<10 Left Ovary: Size 46 mm x 27 mm x 23 mm Follicle(s): Size 22.6 mm x 19.1 mm. Mean 20.9 mm. Vol 4.331 cm 20<10 Recommendations Follow up as clinically indicated. Menstrual History LMP on 10/09/2023 Method Transvaginal ultrasound examination Uterus Endometrium: three-layer pattern Cervix details: cystic lesions identified suggesting superficial Nabothian cysts Uterus length 89 mm Uterus width 59 mm Uterus height 47 mm Uterus Vol 130.5 cm Endometrial thickness, total 8.6 mm Uterine fibroid D1 12 mm Uterine fibroid D2 8 mm Uterine fibroid D3 10 mm Uterine fibroid mean 10.2 mm Uterine fibroid vol 0.540 cm Uterine fibroid D1 19 mm Uterine fibroid D2 14 mm Uterine fibroid D3 16 mm Uterine fibroid mean 16.1 mm Uterine fibroid vol 2.148 cm Uterine fibroid D1 11 mm Uterine fibroid D2 6 mm Uterine fibroid D3 11 mm Uterine fibroid mean 9.4 mm Uterine fibroid vol 0.403 cm Right Ovary Rt ovary D1 39 mm Rt ovary D2 29 mm Rt ovary D3 24 mm Rt ovary mean 30.7 mm Rt ovary Vol 14.3 cm Rt ovarian follicle D1 20.0 mm Rt ovarian follicle D2 12.8 mm Rt ovarian follicle mean 16.4 mm Rt ovarian follicle vol 1.702 cm Left Ovary Lt ovary D1 46 mm Lt ovary D2 27 mm Lt ovary D3 23 mm Lt ovary mean 32.0 mm Lt ovary Vol 15.1 cm Lt ovarian follicle D1 22.6 mm Lt ovarian follicle D2 19.1 mm Lt ovarian follicle mean 20.9 mm Lt ovarian follicle vol 4.331 cm Performed By: Tanja Abad RDMS, PAFabiolaC Read By: Eder Sykes M.D. MATERNAL MEDICINE [facility] Radiology Study observation (narrative) [facility] Follicle Diameter USon 08-[address] [facility] [address] MAN HYSTEROSALPINGO CONTRAST SONOGRAPHY VPon 03-27-2023 [facility] HCG QUAL UR B/Oon 03-27-2023 status Negative neg - pos [facility] Quality Check Yes [facility] MAMMOGRAM SCREENING BILAT ERAL W/TOMOon 03-12-2023 MA MAMMOGRAM SCREENING BILATERAL W/PATRIZIA ORIGINAL FROM: [facility] [address] [place] [address] PROCEDURE FOR: DEBRA MARCH [address] [place] [address] Home: PID#: [id number] Exam#: [id number] : 1985 Age: 37 TO: MICHAEL SHER MD [facility] [place] [address] EXAMINATION: SCREENING DIGITAL BILATERAL MAMMOGRAM WITH TOMOSYNTHESIS, 03/09/2023 11:28 am TECHNIQUE: Screening mammography of the bilateral breasts was performed with tomosynthesis. 2D standard and 3D tomosynthesis combination imaging performed through both breasts in the MLO and CC projection. Computer aided detection was utilized in the interpretation of this exam. COMPARISON: None. HISTORY: Breast cancer screening. FINDINGS: BREAST DENSITY: Scattered fibroglandular tissue There are no significant masses or calcifications. IMPRESSION: No mammographic evidence of malignancy. Continued screening with annual mammograms is recommended. Sarah Keziamohsen risk calculations, generated with the history provided, report this patient's 10 year risk and lifetime risk for developing breast cancer at 1.8% and 18.3%, respectively. Based on this assessment tool, if the patient's calculated lifetime risk is below 20%, then the patient is considered at average risk for developing breast cancer. If the patient's calculated lifetime risk is at or above 20%, then the patient is considered high risk for developing breast cancer and may be a candidate for supplemental breast MRI screening in addition to annual mammographic screening per the [employer]. BIRADS: MAMMOGRAM BI-RADS: 1: Negative RECALL: 1 year screening RECALL TYPE: mammo LETTER SENT: Normal BI-RADS 1 and 2 Interpreted by: Chalo Bahena MD Preliminary Report By: Chalo Bahena MD Electronically signed By Chalo Bahena MD Dictated Date: 03/12/2023 9:59:51 AM Prelim Date: 03/12/2023 10:07:42 AM Sign Date: 03/12/2023 10:07:42 AM Ordering Provider: MICHAEL SHER CLINICAL: BASELINE. Data Designer: WENDY CASTELLANOS RT(R)(M) letter sent: Normal BI-RADS 1 and 2 Mammogram BI-RADS: 1 Negative Normal [facility] ([place]) STREP A MOLECULAR (POC)on Procedural Control Valid [facility] Strep A (POCT) Negative Negative [facility] PROGESTERONE BLDon 3 Progesterone [Mass/Vol] 10.1 ng/mL See comment ng/mL [facility] Freezer Machine Operator Cytology Reporton 2022 Freezer Machine Operator Cytology Report . Pathology Reports Accession: Collected Date/Time: Received Date/Time: Pathologist: [id number] 01/30/2023 13:24 EDT 01/30/2023 18:00 EDT Freezer Machine Operator Cytology Report SPECIMEN: Specimen Description: Liquid Prep Reflex ASCUS Specimen: Cervical/Endocervical Screening or Diagnostic: Screening RELEVANT HISTORY: LMP: 01/20/23 SPECIMEN ADEQUACY: SATISFACTORY FOR EVALUATION Endocervical/Transformational zone component absent/insufficient INTERPRETATION/RESULTS: NEGATIVE FOR INTRAEPITHELIAL LESION OR MALIGNANCY COMMENT: This Pap Test was successfully processed and evaluated with the assistance of the [employer] ThinPrep Test Imaging System. Electronically Signed by Pathology report verified by [facility] Screened by: APRYL Electronically signed by Barbara OREILLY (ASCP) Sign-Out Date: 02/08/2023 09:33 Performing Lab: [facility], [address] [place] [id number] [place] [address] Pathology Dept Disclaimer The Pap test is a screening test for cervical cancer. As evidenced by published data, it is subject to both inherent false negative and false positive results. Your patient's results should be interpreted in context with pertinent clinical history including gynecological examination. Normal [facility] ([place]) HCG QUANTITATIVEon HCG.beta subunit Qn 5.0 m[IU]/mL High <3.0 mIU/mL [facility] STREP A MOLECULAR (POC)on Procedural Control Valid [facility] Strep A (POCT) Negative Negative [facility] STREP A MOLECULAR (POC)on Procedural Control Valid [facility] Strep A (POCT) Negative Negative [facility] JSon 08-09-2021 [facility] REPORT Normal [facility] DATE OF SERVICE: HISTORY OF THE PRESENT ILLNESS: This is a 36-year-old female, Ms. Debra March. She has a medical history of severe allergies to many different things. That includes PENICILLIN, CEFTIN, ILOSEN, AMOXICILLIN, ERYTHROMYCIN, and PHENYLEPHRINE. She is here with about one week with a rash that started on her arms and is progressing towards the midline of her body. She also has full-body itching, most acute on the arms and face. She said one week ago she was at an exercise facility using a yoga mat that they wipe down with an unknown product. She said the next day she woke up with this rash that started. At home, she denies any new detergents or any new cannery tender engineer. She has not ingested any new foods. She also states that another possibility is she was started on meloxicam, which is a new drug for her. She does have an extensive history of allergies to multiple medications. She denies any difficulty breathing, denies shortness of breath, denies chest pain, denies rapid heartbeat or rapid respiratory rate. The rash is limited to her right arm. MEDICATIONS: She is not on any other medications other than the meloxicam which was [facility] PATIENT NAME: DEBRA MARCH [address] [facility] Dr. Baker MEDICAL REC #: [id number] [place] [address] [facility] STATCARE PHYSICIAN 2 days ago. PHYSICAL EXAMINATION: Vital Signs: Her blood pressure is 111/80, pulse is 68, respiratory rate is 20, temperature is 97.9 Fahrenheit, pulse oximetry is 99% on room air. She is not in any pain. General: She appears anxious and nervous about what is going on. She also has a red tone to her skin throughout from head to toe. Heart has a regular rate and rhythm. Lungs: Clear to auscultation, bilaterally. Pupils are equal, round, and reactive to light and accommodation. Her oropharynx is patent and clear. She is speaking in full sentences. The rash in terms of skin, she has a raised scattered pinpoint lesions all over the volar aspect of her right forearm concentrated in the flexor elbow area of her right arm. She does not have any similar rash anywhere on her body; however, she states that her face does itch. There are no open or healing lesions. ASSESSMENT: Urticaria, possible medication reaction to meloxicam or hypersensitivity reaction to cleaning solution used at her exercise studio. Patient is not at risk for anaphylaxis at this point as she has had this for over a week and she is speaking [facility] PAT[facility] MEDICAL REC #: [id number] [place] [address] [facility] RE[facility] STATCARE PHYSICIAN in full sentences with no signs of oropharyngeal swelling. Patient was given one dose of IM Benadryl in her right gluteal region 50 mg. She was not given steroids as she states that she does not like how she feels when she is on steroids. Patient was warned about driving due to the sedating effects of first-generation antihistamines. Also recommended while she is having symptoms, to use a second-generation antihistamine like Claritin or Zyrtec daily. She can also take a H2 pao like famotidine or ranitidine while she is having symptoms. Patient does have an appointment set up for an insurance sales supervisor tomorrow due to her extensive history of food and drug and contact allergens. Patient was given strict return instructions include any sign of shortness of breath, to return immediately to the ER if that were to happen. Patient voiced understanding and had no further questions. Theodore Rockwell MD (RES) dictating for Emilie Hermosillo MD [id number] [facility] PATIENT NAME: [facility] MEDICAL REC #: [id number] [place] [address] [facility] RE[facility] STAT[facility]ARE PHYSICIAN SSI File#: [id number] END OF DOCUMENT / CHANGE LOG FOLLOWS Last Edited By [employer]. Signed By Emilie Hermosillo MD #Emilie Ibrahim MD #JAYCEE on 08/11/2021 18:47 ET on 08/11/2021 18:47 ET Revision Number - 2 Verified/Reviewed by 08/11/[address] [facility] PATIENT NAME: DEBRA MARCH [facility] Dr. Baker MEDICAL REC #: [id number] [place] [address] [facility] RE[facility] STATCARE PHYSICIAN Normal [facility] MRI LUMBAR SPINE WO IVCONon 08-05-2021 [facility] Vital Signs Date Time Vital Sign Value Performing Clinician Facility 02-12-2025 09:42-0400 Body height 157.5 cm Cedrick Laura MD Work Phone: [facility] 02-12-2025 09:42-0400 Body mass index (BMI) [Ratio] 33.07 kg/m2 Cedrick Laura MD Work Phone: [facility] 02-12-2025 09:42-0400 Body temperature 97.5 [degF] Cedrick Laura MD Work Phone: [facility] 02-12-2025 09:42-0400 Body weight 82.01 kg Cerdick Laura MD Work Phone: [facility] 02-12-2025 09:42-0400 Diastolic blood pressure 77 mm[Hg] Cedrick Laura MD Work Phone: [facility] 02-12-2025 09:42-0400 Heart rate 82 /min Cedrick Laura MD Work Phone: [facility] 02-12-2025 09:42-0400 Respiratory rate 20 /min Cedrick Laura MD Work Phone: [facility] 02-12-2025 09:42-0400 SaO2% (BldA) [Mass fraction] 98 % Cedrick Laura MD Work Phone: [facility] 02-12-2025 09:42-0400 Systolic blood pressure 108 mm[Hg] Cedrick Laura MD Work Phone: [facility] 01-20-2025 13:10-0400 Body mass index (BMI) [Ratio] 32.92 kg/m2 Frantz Benson DO Work Phone: [facility] 01-20-2025 13:10-0400 Body temperature 97.7 [degF] Frantz Benson DO Work Phone: [facility] 01-20-2025 13:10-0400 Body weight 81.65 kg Frantz Benson DO Work Phone: [facility] 01-20-2025 13:10-0400 Diastolic blood pressure 60 mm[Hg] Frantz Benson DO Work Phone: [facility] 01-20-2025 13:10-0400 Heart rate 76 /min Frantz Benson DO Work Phone: [facility] 01-20-2025 13:10-0400 Respiratory rate 12 /min Frantz Benson DO Work Phone: [facility] 01-20-2025 13:10-0400 Systolic blood pressure 104 mm[Hg] Frantz Benson DO Work Phone: [facility] 01-15-2025 12:53-0400 Body height 157.5 cm Us Beac Work Phone: [facility] 01-15-2025 12:53-0400 Body mass index (BMI) [Ratio] 33.19 kg/m2 Us Beac Work Phone: [facility] 01-15-2025 12:53-0400 Body weight 82.3 kg Us Beac Work Phone: [facility] 01-15-2025 12:53-0400 Diastolic blood pressure 84 mm[Hg] Us Beac Work Phone: [facility] 01-15-2025 12:53-0400 Heart rate 78 /min Us Beac Work Phone: [facility] 01-15-2025 12:53-0400 Systolic blood pressure 127 mm[Hg] Us Beac Work Phone: [facility] 01-09-2025 10:21-0400 Body height 157.5 cm Melinda Guidry MD Work Phone: [facility] 01-09-2025 10:21-0400 Body mass index (BMI) [Ratio] 33.1 kg/m2 Melinda Guidry MD Work Phone: [facility] 01-09-2025 10:21-0400 Body weight 82.1 kg Melinda Guidry MD Work Phone: [facility] 01-09-2025 10:21-0400 Diastolic blood pressure 73 mm[Hg] Melinda Guidry MD Work Phone: [facility] 01-09-2025 10:21-0400 Heart rate 73 /min Melinda Guidry MD Work Phone: [facility] 01-09-2025 10:21-0400 Systolic blood pressure 115 mm[Hg] Melinda Guidry MD Work Phone: [facility] 11-18-2024 09:31-0400 Body height 157.5 cm Duncan Collins ORTHODONTIST.UTILITY WORKER FILM PROCESSING Work Phone: [facility] 11-18-2024 09:31-0400 Body mass index (BMI) [Ratio] 33.27 kg/m2 Duncan Collins ORTHODONTIST.UTILITY WORKER FILM PROCESSING Work Phone: [facility] 11-18-2024 09:31-0400 Body weight 82.5 kg Duncan Collins ORTHODONTIST.UTILITY WORKER FILM PROCESSING Work Phone: [facility] 11-18-2024 09:31-0400 Diastolic blood pressure 74 mm[Hg] Duncan Collins ORTHODONTIST.UTILITY WORKER FILM PROCESSING Work Phone: [facility] 11-18-2024 09:31-0400 Heart rate 99 /min Duncan Collins ORTHODONTIST.UTILITY WORKER FILM PROCESSING Work Phone: [facility] 11-18-2024 09:31-0400 SaO2% (BldA) [Mass fraction] 98 % Duncan Collins ORTHODONTIST.UTILITY WORKER FILM PROCESSING Work Phone: [facility] 11-18-2024 09:31-0400 Systolic blood pressure 113 mm[Hg] Duncan Collins ORTHODONTIST.UTILITY WORKER FILM PROCESSING Work Phone: [facility] 10-17-2024 09:25-0400 Body mass index (BMI) [Ratio] 33.54 kg/m2 Fermin Marlyn ORTHODONTIST.UTILITY WORKER FILM PROCESSING Work Phone: [facility] 10-17-2024 09:25-0400 Body weight 83.19 kg Fermin Marlyn ORTHODONTIST.UTILITY WORKER FILM PROCESSING Work Phone: [facility] 10-17-2024 09:25-0400 Diastolic blood pressure 64 mm[Hg] Fermin Marlyn ORTHODONTIST.UTILITY WORKER FILM PROCESSING Work Phone: [facility] 10-17-2024 09:25-0400 Heart rate 55 /min Fermin Marlyn ORTHODONTIST.UTILITY WORKER FILM PROCESSING Work Phone: [facility] 10-17-2024 09:25-0400 Respiratory rate 14 /min Fermin Marlyn ORTHODONTIST.UTILITY WORKER FILM PROCESSING Work Phone: [facility] 10-17-2024 09:25-0400 SaO2% (BldA) [Mass fraction] 96 % Fermin Marlyn ORTHODONTIST.UTILITY WORKER FILM PROCESSING Work Phone: [facility] 10-17-2024 09:25-0400 Systolic blood pressure 118 mm[Hg] Fermin Marlyn ORTHODONTIST.UTILITY WORKER FILM PROCESSING Work Phone: [facility] 09-03-2024 14:41-0400 Body height 157.5 cm Frantz Bensno DO Work Phone: [facility] 09-03-2024 14:41-0400 Body mass index (BMI) [Ratio] 33.46 kg/m2 Frantz Benson DO Work Phone: [facility] 09-03-2024 14:41-0400 Body weight 83.01 kg Frantz Benson DO Work Phone: [facility] 09-03-2024 14:41-0400 Diastolic blood pressure 65 mm[Hg] Frantz Benson DO Work Phone: [facility] 09-03-2024 14:41-0400 Heart rate 87 /min Frantz Benson DO Work Phone: [facility] 09-03-2024 14:41-0400 Respiratory rate 12 /min Frantz Ebnson DO Work Phone: [facility] 09-03-2024 14:41-0400 Systolic blood pressure 101 mm[Hg] Frantz Benson DO Work Phone: [facility] 03-15-2024 09:42-0400 Body mass index (BMI) [Ratio] 33.12 kg/m2 Frantz Benson DO Work Phone: [facility] 03-15-2024 09:42-0400 Body weight 81.65 kg Frantz Benson DO Work Phone: [facility] 03-15-2024 09:42-0400 Diastolic blood pressure 64 mm[Hg] Frantz Benson DO Work Phone: [facility] 03-15-2024 09:42-0400 Heart rate 86 /min Frantz Benson DO Work Phone: [facility] 03-15-2024 09:42-0400 Respiratory rate 14 /min Frantz Benson DO Work Phone: [facility] 03-15-2024 09:42-0400 SaO2% (BldA) [Mass fraction] 97 % Frantz Benson DO Work Phone: [facility] 03-15-2024 09:42-0400 Systolic blood pressure 120 mm[Hg] Frantz Benson DO Work Phone: [facility] 10-30-2023 10:25-0400 Body mass index (BMI) [Ratio] 31.65 kg/m2 Frantz Benson DO Work Phone: [facility] 10-30-2023 10:25-0400 Body temperature 97.2 [degF] Frantz Benson DO Work Phone: [facility] 10-30-2023 10:25-0400 Body weight 78.02 kg Frantz Benson DO Work Phone: [facility] 10-30-2023 10:25-0400 Diastolic blood pressure 78 mm[Hg] Frantz Benson DO Work Phone: [facility] 10-30-2023 10:25-0400 Heart rate 72 /min Frantz Benson DO Work Phone: [facility] 10-30-2023 10:25-0400 Respiratory rate 16 /min Frantz Benson DO Work Phone: [facility] 10-30-2023 10:25-0400 Systolic blood pressure 118 mm[Hg] Frantz Benson DO Work Phone: [facility] 08-01-2023 14:45-0400 Body weight 79.74 kg Anastasiya Yaima ORTHODONTIST.UTILITY WORKER FILM PROCESSING Work Phone: [facility] 08-01-2023 14:45-0400 Diastolic blood pressure 78 mm[Hg] Anastasiya Yaima ORTHODONTIST.UTILITY WORKER FILM PROCESSING Work Phone: [facility] 08-01-2023 14:45-0400 Heart rate 78 /min Anastasiya Yaima ORTHODONTIST.UTILITY WORKER FILM PROCESSING Work Phone: [facility] 08-01-2023 14:45-0400 Respiratory rate 16 /min Anastasiya Yaima ORTHODONTIST.UTILITY WORKER FILM PROCESSING Work Phone: [facility] 08-01-2023 14:45-0400 Systolic blood pressure 116 mm[Hg] Anastasiya Yaima ORTHODONTIST.UTILITY WORKER FILM PROCESSING Work Phone: [facility] 07-21-2023 10:40-0500 Body height 157 cm Frantz Benson DO Work Phone: [facility] 07-21-2023 10:40-0500 Body temperature 97.3 [degF] Frantz Benson DO Work Phone: [facility] 07-21-2023 10:40-0500 Body weight 80.74 kg Frantz Benson DO Work Phone: [facility] 07-21-2023 10:40-0500 Diastolic blood pressure 60 mm[Hg] Frantz Benson DO Work Phone: [facility] 07-21-2023 10:40-0500 Heart rate 80 /min Frantz Benson DO Work Phone: [facility] 07-21-2023 10:40-0500 Respiratory rate 16 /min Frantz Benson DO Work Phone: [facility] 07-21-2023 10:40-0500 Systolic blood pressure 110 mm[Hg] Frantz Benson DO Work Phone: [facility] 03-27-2023 11:29-0500 Body height 157.5 cm Ramirez Lua MD Work Phone: [facility] 03-27-2023 11:29-0500 Body weight 79.38 kg Ramirez Lua MD Work Phone: [facility] 03-12-2023 11:32-0400 Body temperature 98.01 [degF] Perla Davis PA-C Work Phone: [facility] 03-12-2023 11:32-0400 Diastolic blood pressure 77 mm[Hg] Perla Davis PA-C Work Phone: [facility] 03-12-2023 11:32-0400 Heart rate 82 /min Perla Davis PA-C Work Phone: [facility] 03-12-2023 11:32-0400 SaO2% (BldA) [Mass fraction] 99 % Perla Davis PA-C Work Phone: [facility] 03-12-2023 11:32-0400 Systolic blood pressure 111 mm[Hg] Perla HUYNH-C Work Phone: [facility] 02-05-2023 12:10-0400 Body height 158 cm Frantz Benson DO Work Phone: [facility] 02-05-2023 12:10-0400 Body temperature 97.11 [degF] Frantz Benson DO Work Phone: [facility] 02-05-2023 12:10-0400 Body weight 78.93 kg Frantz Benson DO Work Phone: [facility] 02-05-2023 12:10-0400 Diastolic blood pressure 60 mm[Hg] Frantz Benson DO Work Phone: [facility] 02-05-2023 12:10-0400 Heart rate 80 /min Frantz Benson DO Work Phone: [facility] 02-05-2023 12:10-0400 Respiratory rate 12 /min Frantz Benson DO Work Phone: [facility] 02-05-2023 12:10-0400 Systolic blood pressure 96 mm[Hg] Frantz Benson DO Work Phone: [facility] 10-04-2022 11:35-0400 Body temperature 97.3 [degF] Zakiya Dailey ORTHODONTIST.UTILITY WORKER FILM PROCESSING Work Phone: [facility] 10-04-2022 11:35-0400 Diastolic blood pressure 78 mm[Hg] Zakiya Dailey ORTHODONTIST.UTILITY WORKER FILM PROCESSING Work Phone: [facility] 10-04-2022 11:35-0400 Heart rate 82 /min Zakiya Dailey ORTHODONTIST.UTILITY WORKER FILM PROCESSING Work Phone: [facility] 10-04-2022 11:35-0400 SaO2% (BldA) [Mass fraction] 100 % Zakiya Dailey ORTHODONTIST.UTILITY WORKER FILM PROCESSING Work Phone: [facility] 10-04-2022 11:35-0400 Systolic blood pressure 116 mm[Hg] Zakiya Dailey ORTHODONTIST.UTILITY WORKER FILM PROCESSING Work Phone: [facility] 06-30-2022 13:12-0500 Body temperature 99 [degF] Fariba Bahena ORTHODONTIST.UTILITY WORKER FILM PROCESSING Work Phone: [facility] 06-30-2022 13:12-0500 Body weight 79.29 kg Fariba Bahena ORTHODONTIST.UTILITY WORKER FILM PROCESSING Work Phone: [facility] 06-30-2022 13:12-0500 Diastolic blood pressure 64 mm[Hg] Fariba Bahena ORTHODONTIST.UTILITY WORKER FILM PROCESSING Work Phone: [facility] 06-30-2022 13:12-0500 Heart rate 78 /min Fariba Bahena ORTHODONTIST.UTILITY WORKER FILM PROCESSING Work Phone: [facility] 06-30-2022 13:12-0500 Respiratory rate 16 /min Fariba Bahena ORTHODONTIST.UTILITY WORKER FILM PROCESSING Work Phone: [facility] 06-30-2022 13:12-0500 SaO2% (BldA) [Mass fraction] 100 % Fariba Bahena ORTHODONTIST.UTILITY WORKER FILM PROCESSING Work Phone: [facility] 06-30-2022 13:12-0500 Systolic blood pressure 128 mm[Hg] Fariba Bahena ORTHODONTIST.UTILITY WORKER FILM PROCESSING Work Phone: [facility] 05-20-2022 11:23-0500 Body temperature 98.49 [degF] Perla Davis PA-C Work Phone: [facility] 05-20-2022 11:23-0500 Diastolic blood pressure 71 mm[Hg] Perla Davis PA-C Work Phone: [facility] 05-20-2022 11:23-0500 Heart rate 98 /min Perla Davis PA-C Work Phone: [facility] 05-20-2022 11:23-0500 SaO2% (BldA) [Mass fraction] 98 % Perla Davis PA-C Work Phone: [facility] 05-20-2022 11:23-0500 Systolic blood pressure 105 mm[Hg] Perla Davis PA-C Work Phone: [facility] 02-07-2022 14:18-0400 Body height 155.5 cm Frantz Benson DO Work Phone: [facility] 02-07-2022 14:18-0400 Body temperature 97 [degF] Frantz Benson DO Work Phone: [facility] 02-07-2022 14:18-0400 Body weight 77.56 kg Frantz Benson DO Work Phone: [facility] 02-07-2022 14:18-0400 Diastolic blood pressure 76 mm[Hg] Frantz Benson DO Work Phone: [facility] 02-07-2022 14:18-0400 Heart rate 88 /min Frantz Benson DO Work Phone: [facility] 02-07-2022 14:18-0400 Respiratory rate 12 /min Frantz Benson DO Work Phone: [facility] 02-07-2022 14:18-0400 Systolic blood pressure 112 mm[Hg] Frantz Benson DO Work Phone: [facility] Encounters Encounter Date Encounter Type Care Provider Facility Start: 03-12-2025 ambulatory Frantz Benson Lynn :[facility] Start: 03-11-2025 ambulatory EDER SYKES Facility:[facility] Start: 03-10-2025 End: 03-10-2025 ambulatory FRANTZ L BENSON Facility:[facility] Start: 03-09-2025 Encounter for other preprocedural examination Aniya Suarez [facility] Start: 02-26-2025 End: 02-26-2025 ambulatory ANIYA SUAREZ Facility:[facility] Start: 02-24-2025 End: 02-24-2025 ambulatory DEVON OSMAN Facility:[facility] Start: 02-23-2025 End: 02-23-2025 ambulatory FRANTZ L BENSON Facility:[facility] Start: 02-18-2025 End: 02-18-2025 ambulatory FRANTZ L BENSON Facility:[facility] Start: 02-12-2025 End: 02-12-2025 ambulatory CEDRICK LAURA [facility] Start: 02-12-2025 End: 02-12-2025 Patient encounter procedure Cedrick Laura MD Work Phone: [facility] Comment on above: 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) Start: 02-05-2025 End: 02-05-2025 ambulatory EDER SYKES Facility:[facility] Start: 02-03-2025 End: 02-03-2025 Telephone encounter Rianna Savage [facility] Comment on above: Patient Update Start: 02-02-2025 End: 02-02-2025 Patient encounter procedure Nurse [facility] Comment on above: Female infertility ( Primary Dx) Start: 02-02-2025 End: 02-02-2025 Telemedicine consultation with patient Nurse Alice [facility] Start: 02-02-2025 End: 02-03-2025 Admission to same day surgery center Elda Crook PhD Work Phone: [facility] Comment on above: PGT results Start: 02-02-2025 End: 02-02-2025 ambulatory Eder Sykes MD Work Phone: [facility] Comment on above: Procedure Scheduling Start: 02-02-2025 End: 02-03-2025 E-mail encounter from caregiver Eder Sykes MD Work Phone: [facility] Start: 01-30-2025 End: 01-30-2025 Telephone encounter Eder Sykes MD Work Phone: [facility] Comment on above: Patient Question Start: 01-27-2025 End: 01-31-2025 ambulatory MICHAEL SHER MD Facility:A Start: 01-27-2025 End: 01-31-2025 Encounter for gynecological examination (general) (routine) without abnormal findings MICHAEL SHER MD Facility:[facility] Start: 01-23-2025 End: 01-23-2025 Telephone encounter Eder Sykes MD Work Phone: [facility] Comment on above: Patient Question Start: 01-22-2025 End: 01-23-2025 ambulatory Eder Sykes MD Work Phone: [facility] Start: 01-22-2025 End: 01-23-2025 Patient encounter procedure Eder Sykes MD Work Phone: [facility] Comment on above: Claire Mnotano Start: 01-20-2025 End: 01-20-2025 Patient encounter procedure Frantz Benson DO Work Phone: [facility] Comment on above: Class 1 obesity with body mass index (BMI) of 32.0 to 32.9 in adult, unspecified obesity type, unspecified whether serious comorbidity present (Primary Dx); Chronic nonintractable headache, unspecified headache type; Situational anxiety Start: 01-20-2025 End: 01-23-2025 ambulatory Melinda Guidry MD Work Phone: [facility] Comment on above: saline results Start: 01-16-2025 End: 01-16-2025 ambulatory Melinda Guidry MD Work Phone: [facility] Comment on above: embryo DNA needs res ent to lab Start: 01-15-2025 End: 01-15-2025 Patient encounter procedure Tanja Abad PA-C Work Phone: [facility] Comment on above: Encounter for fertil ity testing (Primary Dx); Pre-procedural laboratory examination Start: 01-15-2025 End: 01-15-2025 Patient encounter status Tanja Abad PA-C Work Phone: [facility] Start: 01-15-2025 End: 01-15-2025 ambulatory EDER SYKES Facility:[facility] Start: 01-15-2025 Encounter for preprocedural laboratory examination TANJA ABAD [facility] Start: 01-14-2025 End: 01-16-2025 ambulatory Eder Sykes MD Work Phone: [facility] Start: 01-14-2025 End: 01-16-2025 Patient encounter procedure Eder Sykes MD Work Phone: [facility] Comment on above: claire hernandez Start: 01-09-2025 End: 01-15-2025 ambulatory Eder Sykes MD Work Phone: [facility] Start: 01-09-2025 End: 01-15-2025 Patient encounter procedure Melinda Guidry MD Work Phone: [facility] Comment on above: Family history of ca rrier of genetic disease (Primary Dx) Claire Michelle Start: 12-29-2024 End: 12-31-2024 ambulatory Eder Sykes MD Work Phone: [facility] Start: 12-29-2024 End: 12-31-2024 Patient encounter procedure Eder Sykes MD Work Phone: [facility] Comment on above: Claire Michelle Start: 12-22-2024 End: 12-29-2024 ambulatory Eder Sykes MD Work Phone: [facility] Start: 12-22-2024 End: 12-29-2024 Patient encounter procedure Eder Sykes MD Work Phone: [facility] Comment on above: Pgt-M next step Start: 12-19-2024 End: 12-19-2024 Admission to same day surgery center Elda Crook PhD Work Phone: [facility] Comment on above: PGT results Start: 12-19-2024 End: 12-22-2024 ambulatory Eder Sykes MD Work Phone: [facility] Start: 12-19-2024 End: 12-19-2024 E-mail encounter from caregiver Elda Crook PhD Work Phone: [facility] Start: 12-19-2024 End: 12-22-2024 Patient encounter procedure Eder Sykes MD Work Phone: [facility] Comment on above: Claier michelle Start: 12-19-2024 End: 12-22-2024 Telephone encounter Eder Sykes MD Work Phone: [facility] Comment on above: pt is reaching out w ith questions about pgt and genetic niall Start: 12-12-2024 End: 12-12-2024 ambulatory Eder Sykes MD Work Phone: [facility] Start: 12-12-2024 End: 12-12-2024 Patient encounter procedure Eder Sykes MD Work Phone: [facility] Comment on above: Claire Michelle Start: 12-12-2024 End: 12-12-2024 Telephone encounter Eder Sykes MD Work Phone: [facility] Comment on above: Orders Start: 12-09-2024 End: 12-10-2024 ambulatory Eder Sykes MD Work Phone: [facility] Start: 12-09-2024 End: 12-10-2024 Patient encounter procedure Eder Sykes MD Work Phone: [facility] Comment on above: Claire Montano Start: 12-05-2024 End: 12-05-2024 Telephone encounter Barrett Ferris RN Work Phone: [facility] Comment on above: Insurance Authorizat sierra kiran [facility] is c alling on behalf of pt... Start: 12-04-2024 End: 12-05-2024 ambulatory Eder Sykes MD Work Phone: [facility] Start: 12-04-2024 End: 12-05-2024 Patient encounter procedure Eder Sykes MD Work Phone: [facility] Comment on above: Claire Michelle Start: 12-03-2024 End: 12-03-2024 ambulatory Eder Sykes MD Work Phone: [facility] Start: 12-03-2024 End: 12-03-2024 Patient encounter procedure Eder Sykes MD Work Phone: [facility] Comment on above: Claire Michelle Start: 12-02-2024 End: 12-19-2024 ambulatory [facility] Provider [facility] Comment on above: PGT A&M Start: 12-02-2024 End: 12-19-2024 E-mail encounter from caregiver [facility] Provider [facility] Start: 12-01-2024 End: 12-01-2024 Patient encounter procedure Andrology Bottle Machine Operator Work Phone: [facility] Comment on above: Primary female infer tility (Primary Dx) PGTA and PGTM testin g [facility] Start: 12-01-2024 End: 12-01-2024 ambulatory Eder Sykes MD Work Phone: [facility] Start: 11-28-2024 End: 12-01-2024 ambulatory Eder Sykes MD Work Phone: [facility] Start: 11-28-2024 End: 12-01-2024 Patient encounter procedure Eder Sykes MD Work Phone: [facility] Comment on above: Medicine question Oumou green or Dusty Start: 11-25-2024 End: 11-25-2024 Patient encounter procedure Andrology Bottle Machine Operator Work Phone: [facility] Comment on above: Primary female infer tility (Primary Dx) Start: 11-25-2024 End: 11-25-2024 ambulatory FRANTZ BENSON Facility:[facility] Start: 11-25-2024 End: 11-25-2024 Emergency department patient visit FRANTZ BENSON Facility:[id number] Start: 11-25-2024 End: 11-25-2024 Emergency department patient visit VENESSA QUEZADA MD Facility:A Start: 11-24-2024 End: 11-24-2024 Telemedicine consultation with patient Nurse Alice Bath Work Phone: [facility] Start: 11-24-2024 End: 11-24-2024 Telephone encounter Fermin Field APRN.UTILITY WORKER FILM PROCESSING Work Phone: [facility] [place] Comment on above: Medication Question Start: 11-24-2024 End: 11-24-2024 ambulatory FRANTZ Robles BENSON [facility] Comment on above: Female infertility ( Primary Dx) Start: 11-23-2024 End: 11-23-2024 ambulatory Us Beac Work Phone: [facility] Comment on above: Infertility Start: 11-23-2024 End: 11-23-2024 Patient encounter procedure Us Tech 2 [facility] Work Phone: [facility] Start: 11-23-2024 End: 11-23-2024 ambulatory EDER SYKES Facility:[facility] Start: 11-22-2024 End: 11-22-2024 Patient encounter procedure Us Tech 2 [facility] Work Phone: [facility] Start: 11-22-2024 End: 11-22-2024 ambulatory EDER SYKES [facility] Comment on above: Infertility Start: 11-19-2024 End: 11-19-2024 ambulatory FRANTZ BENSON [facility] Comment on above: Infertility Start: 11-19-2024 End: 11-19-2024 Patient encounter procedure Alice Bath Us Remote Work Phone: [facility] Start: 11-18-2024 End: 11-26-2024 ambulatory Eder Sykes MD Work Phone: [facility] Start: 11-18-2024 End: 11-26-2024 Patient encounter procedure Duncan Guadalupe APRN.UTILITY WORKER FILM PROCESSING Work Phone: [facility] Comment on above: Preoperative examina tion (Primary Dx) IVF consent question Nyla Platt Start: 11-18-2024 End: 11-18-2024 Preprocedural examination done Duncan Guadalupe APRN.UTILITY WORKER FILM PROCESSING Work Phone: [facility] Work Phone: Start: 11-15-2024 End: 11-15-2024 Patient encounter procedure Us Tech 2 [facility] Beac Work Phone: [facility] Start: 11-15-2024 End: 11-15-2024 ambulatory EDER SYKES [facility] Start: 11-13-2024 End: 11-14-2024 ambulatory Duncan Guadalupe ORTHODONTIST.UTILITY WORKER FILM PROCESSING Work Phone: [facility] Comment on above: ready to start IVF a nyone ??? Start: 11-12-2024 End: 11-14-2024 Telephone encounter Eder Sykes MD Work Phone: [facility] Comment on above: Pt is calling to see next steps for their IVF process... Start: 11-11-2024 End: 11-14-2024 ambulatory Eder Sykes MD Work Phone: [facility] Start: 11-11-2024 End: 11-14-2024 Patient encounter procedure Eder Sykes MD Work Phone: [facility] Comment on above: CLAIRE MONTANO Start: 11-05-2024 End: 11-05-2024 Telephone encounter Frantz Benson DO Work Phone: [facility] [place] Start: 10-31-2024 ambulatory FRANTZ Mosqueda ity:[facility] Start: 10-31-2024 End: 10-31-2024 Subsequent hospital visit by physician Screen Mammo [facility] Comment on above: Encounter for screen ing mammogram for malignant neoplasm of breast [Z12.31] Start: 10-22-2024 End: 10-22-2024 ambulatory Eder Sykes MD Work Phone: [facility] Start: 10-22-2024 End: 10-22-2024 Patient encounter procedure Eder Sykes MD Work Phone: [facility] Start: 10-17-2024 End: 10-17-2024 ambulatory FRANTZ BENSON Facility:[facility] Start: 10-17-2024 End: 10-17-2024 Office outpatient visit 15 minutes Fermin Field APRN.CNP Work Phone: [facility] [place] Comment on above: Class 1 obesity with out serious comorbidity with body mass index (BMI) of 33.0 to 33.9 in adult, unspecified obesity type (Primary Dx) Start: 10-16-2024 End: 10-17-2024 Telephone encounter Frantz Benson DO Work Phone: [facility] [place] Comment on above: Patient Update Kiran labs/pt did n ot receive e-mail from them Start: 10-14-2024 End: 10-23-2024 ambulatory Eder Sykes MD Work Phone: [facility] Start: 10-14-2024 End: 10-23-2024 Patient encounter procedure Eder Sykes MD Work Phone: [facility] Comment on above: claire Montano Start: 10-02-2024 End: 10-06-2024 ambulatory Eder Sykes MD Work Phone: [facility] Start: 10-02-2024 End: 10-06-2024 Patient encounter procedure Eder Sykes MD Work Phone: [facility] Comment on above: claire Montano Start: 09-19-2024 End: 09-19-2024 Telemedicine consultation with patient Heidy Lundberg [facility] Work Phone: [facility] Start: 09-19-2024 End: 09-19-2024 ambulatory Heidy Lundberg [facility] Work Phone: [facility] Comment on above: Genetic carrier of o ther disease Start: 09-17-2024 End: 09-17-2024 Get Medical Advice Eder Sykes MD Work Phone: [facility] Comment on above: blood/urine orders n maye Montano Start: 09-16-2024 End: 09-16-2024 Nursing evaluation of patient and report Nurse Alice [facility] Rafat Work Phone: [facility] Comment on above: Family history of ca rrier of genetic disease (Primary Dx) Start: 09-10-2024 End: 11-10-2024 Follow-up encounter Anastasiya Erwin APRN.UTILITY WORKER FILM PROCESSING Work Phone: [facility] [place] Start: 09-09-2024 End: 09-09-2024 Telephone encounter Frantz Benson DO Work Phone: [facility] Comment on above: Patient Update Start: 09-09-2024 End: 09-09-2024 ambulatory FRANTZ BNESON Facility:[facility] Start: 09-04-2024 End: 09-05-2024 ambulatory Duncan Guadalupe APRN.CNP Work Phone: [facility] Comment on above: IVF next step Start: 09-03-2024 End: 09-03-2024 Patient encounter procedure Frantz Benson DO Work Phone: [facility] Comment on above: Well adult exam ([place] Dx); Encounter for screening mammogram for malignant neoplasm of breast; Class 1 obesity with body mass index (BMI) of 33.0 to 33.9 in adult, unspecified obesity type, unspecified whether serious comorbidity present Start: 09-03-2024 End: 09-03-2024 Patient encounter status Frantz Benson DO Work Phone: [facility] Start: 09-03-2024 End: 09-03-2024 ambulatory FRANTZ BENSON Facility:[facility] Start: 08-28-2024 End: 10-28-2024 Follow-up encounter Eder Sykes MD Work Phone: [facility] Start: 08-27-2024 End: 08-27-2024 ambulatory FRANTZ BENSON Facility:[facility] Start: 08-26-2024 End: 12-08-2024 Telephone encounter Eder Sykes MD Work Phone: [facility] Comment on above: Orders ([facility]) needs FC for IVF Start: 08-25-2024 End: 08-27-2024 ambulatory Eder Sykes MD Work Phone: [facility] Start: 08-25-2024 End: 08-27-2024 Patient encounter procedure Eder Sykes MD Work Phone: [facility] Comment on above: next step IVF Family history of ch romosomal microdeletion (Primary Dx); Family history of chromosomal microduplication; Encounter of female for testing for genetic disease carrier status for procreative management; Family history of autism Start: 08-21-2024 End: 08-21-2024 Telephone encounter Marek Nixon [facility] Work Phone: [facility] Comment on above: [place] Picker - O ther (Genetic Records) Start: 08-15-2024 End: 08-15-2024 E-mail encounter from caregiver Eder Sykes MD Work Phone: [facility] Start: 08-15-2024 End: 08-15-2024 ambulatory EDER SYKES Facility:[facility] Start: 08-15-2024 End: 08-15-2024 Patient encounter procedure Eder Sykes MD Work Phone: [facility] Comment on above: Family history of ca rrier of genetic disease (Primary Dx) IVF Next Steps Start: 08-15-2024 End: 08-15-2024 Telemedicine consultation with patient Eder Sykes MD Work Phone: [facility] Start: 08-08-2024 End: 08-08-2024 E-mail encounter from caregiver Eder Sykes MD Work Phone: [facility] Start: 08-08-2024 End: 08-08-2024 Patient encounter procedure Eder Sykes MD Work Phone: [facility] Comment on above: Appointment Start: 08-07-2024 End: 08-08-2024 Telephone encounter Tanja Abad PA-C Work Phone: [facility] Start: 08-06-2024 End: 08-07-2024 Telephone encounter Eder Sykes MD Work Phone: [facility] Start: 07-24-2024 End: 07-24-2024 ambulatory Catarina Manzo MD Work Phone: Neurology Comment on above: Migraine without aur a and without status migrainosus, not intractable (Primary Dx); 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 Start: 07-24-2024 End: 07-24-2024 Telemedicine consultation with patient Catarina Manzo MD Work Phone: Neurology Start: 07-21-2024 End: 07-21-2024 ambulatory [facility] Start: 07-17-2024 End: 07-17-2024 Emergency department patient visit JOSE EDUARDO WOODS MD Facility:A Start: 06-30-2024 End: 06-30-2024 Refill Brianna Gaytan APRN.CNP Work Phone: Neurology Headache [facility] Comment on above: Refill Request Start: 05-06-2024 End: 05-06-2024 ambulatory FRANTZ BENSON DO Facility:A Start: 05-06-2024 End: 05-06-2024 Patient encounter procedure MICHAEL SHER MD [facility] Start: 04-28-2024 End: 08-26-2024 Telephone encounter Frantz Benson DO Work Phone: [facility] Comment on above: Mammogram Abnormalit y Start: 04-22-2024 End: 04-22-2024 ambulatory FRANTZ BENSON DO Facility:A Start: 03-15-2024 End: 03-15-2024 Patient encounter procedure Frantz Benson DO Work Phone: [facility] Comment on above: Acute reaction to si tuational stress (Primary Dx); Encounter for screening examination for other mental health and behavioral disorders; Situational anxiety Start: 03-15-2024 End: 03-15-2024 ambulatory FRANTZ BENSON Facility:[facility] Start: 01-18-2024 End: 01-18-2024 ambulatory Frantz Benson DO Work Phone: [facility] Comment on above: Situational anxiety (Primary Dx); Acute reaction to situational stress Start: 01-18-2024 End: 01-18-2024 Telemedicine consultation with patient Frantz Benson DO Work Phone: [facility] Start: 01-10-2024 End: 01-10-2024 ambulatory FRANTZ BENSON Facility:[facility] Start: 01-07-2024 End: 01-07-2024 ambulatory Frantz Benson DO Work Phone: [facility] Comment on above: Heavy metals testing Start: 01-07-2024 End: 01-10-2024 Telephone encounter Frantz Benson DO Work Phone: [facility] Comment on above: Patient Question Start: 12-03-2023 Telephone encounter No Pcp ORTHODONTIST [facility] ([place]) Comment on above: New Patient Start: 11-05-2023 Telephone encounter Barrett castellanos RN Work Phone: [facility] Comment on above: Insurance Authorizat ion; Ubrelvy 100MG tablets Start: 10-30-2023 Telephone encounter Brianna Gaytan ORTHODONTIST.UTILITY WORKER [employer] PROCESSING Work Phone: Neurology Comment on above: Opened In Error Start: 10-30-2023 End: 10-30-2023 Patient encounter procedure Frantz Benson DO Work Phone: [facility] Comment on above: Situational anxiety (Primary Dx) Start: 10-25-2023 End: 10-25-2023 ambulatory Brianna Gaytan ORTHODONTIST.UTILITY WORKER [employer] PROCESSING Work Phone: Neurology Headache [facility] Comment on above: Migraine without aur a and without status migrainosus, not intractable (Primary Dx); 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 Start: 10-25-2023 End: 10-25-2023 Telemedicine consultation with patient Brianna Gaytan ORTHODONTIST.UTILITY WORKER [employer]ING Work Phone: Neurology Headache [facility] Start: 10-21-2023 End: 10-21-2023 Patient encounter procedure Duncan Amor Collins ORTHODONTIST.UTILITY WORKER [employer] PROCESSING Work Phone: [facility] Comment on above: Encounter for artifi cial insemination (Primary Dx) Start: 10-19-2023 Telephone encounter Eder Sykes MD Work Phone: [facility] Comment on above: Returning Patient's Call Start: 10-19-2023 End: 10-19-2023 ambulatory Tanja Abad PA-C Work Phone: [facility] Comment on above: Infertility Start: 10-19-2023 End: 10-19-2023 Patient encounter procedure Tanja HUYNH-Kiki Work Phone: [facility] Start: 10-18-2023 Telephone encounter Eder Sykes MD Work Phone: [facility] Comment on above: Patient Question Start: 10-08-2023 End: 10-08-2023 Patient encounter procedure Eder Sykes MD Work Phone: [facility] Comment on above: Age related female i nfertility (Primary Dx) Start: 10-08-2023 End: 10-08-2023 Telemedicine consultation with patient Eder Sykes MD Work Phone: [facility] Start: 10-01-2023 Telephone encounter Eder Sykes MD Work Phone: [facility] Comment on above: letrozole clarify Start: 09-28-2023 End: 09-28-2023 ambulatory Duncan Guadalupe ORTHODONTIST.UTILITY WORKER [employer] PROCESSING Work Phone: [facility] Comment on above: Encounter for fertil ity planning (Primary Dx) Start: 09-28-2023 End: 09-28-2023 Telemedicine consultation with patient Duncan Guadalupe ORTHODONTIST.UTILITY WORKER [employer] PROCESSING Work Phone: [facility] Start: 09-19-2023 Telephone encounter Duncan Guadalupe ORTHODONTIST.UTILITY WORKER [employer] PROCESSING Work Phone: [facility] Comment on above: Patient Question Start: 09-16-2023 End: 09-16-2023 Patient encounter procedure Sanna Raymundo ORTHODONTIST.CN Work Phone: [facility] Comment on above: Encounter for artifi cial insemination (Primary Dx) Start: 09-05-2023 ambulatory Duncan Amor Ryland barney ORTHODONTIST.UTILITY WORKER FILM PROCESSING Work Phone: [facility] Comment on above: Letrozol Start: 08-29-2023 Telephone encounter Duncan Guadalupe ORTHODONTIST.UTILITY WORKER [employer]M PROCESSING Work Phone: [facility] Comment on above: Patient Question Start: 08-22-2023 End: 08-22-2023 Patient encounter procedure Suzi Rosales ORTHODONTIST.UTILITY WORKER [employer] PROCESSING Work Phone: [facility] Comment on above: Encounter for artifi cial insemination (Primary Dx) Start: 08-20-2023 Telephone encounter Eder Sykes MD Work Phone: [facility] Comment on above: Appointment Start: 08-20-2023 End: 08-20-2023 ambulatory Heidy Beyer MD Work Phone: [facility] Comment on above: Infertility Start: 08-20-2023 End: 08-20-2023 Patient encounter procedure Heidy Beyer MD Work Phone: [facility] Start: 08-08-2023 Telephone encounter Eder Sykes MD Work Phone: [facility] Comment on above: Patient Update Start: 08-06-2023 End: 08-06-2023 ambulatory Duncan Guadalupe SARAH.UTILITY WORKER FILM PROCESSING Work Phone: [facility] Comment on above: Encounter for fertil ity planning (Primary Dx) Start: 08-06-2023 End: 08-06-2023 Telemedicine consultation with patient Duncan Guadalupe SARAH.UTILITY WORKER FILM PROCESSING Work Phone: [facility] Start: 08-06-2023 Telephone encounter Eder Sykes MD Work Phone: [facility] Comment on above: Patient Question; Amina tamayont Update Start: 08-01-2023 End: 08-01-2023 Patient encounter procedure Anastasiya Yaima SMITH.UTILITY WORKER FILM PROCESSING Work Phone: [facility] [place] Comment on above: Yxg-scpy-rlsrlnx adv erse effect of medication, initial encounter (Primary Dx) Start: 07-31-2023 End: 07-31-2023 Orders Only Enmanuel Tatum MD Work Phone: Cardiology Comment on above: Chest pain, unspecif ied type (Primary Dx) Patient Update Start: 07-25-2023 End: 07-25-2023 Patient encounter procedure Duncan Guadalupe SARAH.UTILITY WORKER FILM PROCESSING Work Phone: [facility] Comment on above: Encounter for artifi cial insemination (Primary Dx) Start: 07-21-2023 End: 07-21-2023 Patient encounter procedure Frantz Benson DO Work Phone: [facility] [place] Comment on above: Well adult exam ([facility] Dx); Other migraine without status migrainosus, not intractable; Factor 5 Leiden mutation, heterozygous (HCC); Class 1 obesity with body mass index (BMI) of 32.0 to 32.9 in adult, unspecified obesity type, unspecified whether serious comorbidity present; Dental caries Start: 07-21-2023 End: 07-21-2023 Patient encounter status Frantz Benson DO Work Phone: [facility] Work Phone: Start: 07-17-2023 End: 07-17-2023 ambulatory Duncan Guadalupe ORTHODONTIST.UTILITY WORKER FILM PROCESSING Work Phone: [facility] Comment on above: Treatment plan provi ded (Primary Dx) Start: 07-17-2023 End: 07-17-2023 Telemedicine consultation with patient Duncan Guadalupe ORTHODONTIST.UTILITY WORKER FILM PROCESSING Work Phone: [facility] Start: 07-16-2023 Telephone encounter Eder Sykes MD Work Phone: [facility] Comment on above: Patient Update Start: 07-12-2023 ambulatory Duncan Marcelino ey ORTHODONTIST.UTILITY WORKER FILM PROCESSING Work Phone: [facility] Comment on above: Ultrasound question Start: 07-11-2023 End: 07-11-2023 ambulatory Duncan Guadalupe ORTHODONTIST.UTILITY WORKER FILM PROCESSING Work Phone: [facility] Comment on above: Encounter for fertil ity testing (Primary Dx) Start: 07-11-2023 End: 07-11-2023 Telemedicine consultation with patient Duncan Guadalupe ORTHODONTIST.UTILITY WORKER FILM PROCESSING Work Phone: [facility] Start: 07-10-2023 Telephone encounter Eder Sykes MD Work Phone: [facility] Comment on above: Patient Question Start: 07-02-2023 Telephone encounter Eder Sykes MD Work Phone: [facility] Comment on above: IUI Finanical Cleara nce; next steps/cycle to start in next couple days Start: 06-25-2023 ambulatory Eder Sykes MD Work Phone: [facility] Comment on above: IUI and Urology phon e number Start: 06-25-2023 E-mail encounter kellee m caregiver Eder Sykes MD Work Phone: [facility] Start: 05-04-2023 End: 05-04-2023 ambulatory Katie Rose PT Work Phone: [facility] Comment on above: Acute back pain, uns pecified back location, unspecified back pain laterality Start: 04-24-2023 Telephone encounter Catarina Manzo MD Work Phone: Neurology Comment on above: Insurance Authorizat ion (ubrelvy) Start: 04-23-2023 Telephone encounter Catarina Manzo MD Work Phone: Neurology Comment on above: Patient Update Results Start: 04-22-2023 End: 04-22-2023 Emergency department patient visit TREMAINE TEIXEIRA ORTHODONTIST-UTILITY WORKER FILM PROCESSING Facility:A Start: 04-19-2023 End: 04-19-2023 Subsequent hospital visit by physician Us Gaytan 2 RADIO ULTRA [facility] Comment on above: Localized enlarged l ymph nodes [R59.0] Start: 04-16-2023 Telephone encounter Frantz oconnell DO Work Phone: [facility] Start: 04-06-2023 Telephone encounter Catarina Manzo MD Work Phone: Neurology Comment on above: Insurance Authorizat ion ([employer]) Start: 04-06-2023 End: 04-06-2023 Patient encounter procedure Maliha Salas MD Work Phone: Otolaryngology Comment on above: Localized enlarged l ymph nodes (Primary Dx) Start: 04-05-2023 End: 04-05-2023 Office outpatient visit 10 minutes Catarina Manzo MD Work Phone: Neurology Comment on above: Migraine without aur a and without status migrainosus, not intractable (Primary Dx); 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 Start: 03-27-2023 End: 03-27-2023 Patient encounter procedure Ramirez Lua MD Work Phone: [facility] Comment on above: examinatio n or test, negative result (Primary Dx); Irregular periods Start: 03-21-2023 Telephone encounter Eder Sykes MD Work Phone: [facility] Comment on above: Patient Question Start: 03-12-2023 End: 03-12-2023 Office outpatient visit 15 minutes Perla Davis PA-C Work Phone: [facility] Comment on above: Sore throat (Primary Dx); Exposure to strep throat Start: 03-09-2023 End: 03-10-2023 ambulatory FRANTZ READON Facility:A Start: 03-09-2023 End: 03-09-2023 ambulatory Eder Sykes MD Work Phone: [facility] Comment on above: Irregular periods (P rimary Dx); Encounter for preconception consultation; History of miscarriage Start: 03-09-2023 End: 03-09-2023 Telemedicine consultation with patient Eder Sykes MD Work Phone: [facility] Start: 02-28-2023 Telephone encounter Frantz oconnell DO Work Phone: [facility] Start: 02-21-2023 Refill Catarina Kenny nielsen MD Work Phone: Neurology Comment on above: Refill Request Start: 02-05-2023 End: 02-05-2023 Patient encounter procedure Frantz Robles Benson Work Phone: [facility] [place] Comment on above: Well adult exam (Marlys marilee Dx); Miscarriage; Other migraine without status migrainosus, not intractable Start: 02-05-2023 End: 02-05-2023 Patient encounter status Frantz Benson Work Phone: [facility] Work Phone: Start: 01-30-2023 End: 02-04-2023 ambulatory FRANTZ READON Facility:A Start: 01-30-2023 End: 02-04-2023 Encounter for gynecological examination (general) (routine) without abnormal findings MICHAEL SHER Facility:A Start: 01-15-2023 ambulatory Colette Hickman RN NURSE O N CALL Comment on above: UTI Start: 12-26-2022 Telephone encounter Frantz oconnell DO Work Phone: [facility] Comment on above: Results Start: 12-25-2022 Telephone encounter Frantz oconnell DO Work Phone: [facility] Comment on above: miscarriage follow u p Start: 10-04-2022 End: 10-04-2022 Patient encounter procedure Zakiya Ashlie ORTHODONTIST.UTILITY WORKER FILM PROCESSING Work Phone: [facility] Comment on above: Viral URI (Primary D x) Start: 09-22-2022 Telephone encounter Macy roy ORTHODONTIST.UTILITY WORKER FILM PROCESSING Work Phone: Neurology Comment on above: Insurance Authorizat ion (Ubrelvy ) Start: 07-26-2022 Refill Catarina Kenny nielsen MD Work Phone: Neurology Comment on above: Refill Request Start: 07-19-2022 End: 07-19-2022 ambulatory Anastasiya Erwin ORTHODONTIST.UTILITY WORKER FILM PROCESSING Work Phone: [facility] Comment on above: Headache, unspecifie d headache type (Primary Dx); Congestion of both ears; Recurrent sinusitis; Penicillin allergy Start: 07-19-2022 End: 07-19-2022 Telemedicine consultation with patient Anastasiya Erwin ORTHODONTIST.UTILITY WORKER FILM PROCESSING Work Phone: [facility] Start: 06-30-2022 End: 06-30-2022 Patient encounter procedure Fariba Bahena ORTHODONTIST.UTILITY WORKER FILM PROCESSING Work Phone: [facility] Comment on above: Sore throat (Primary Dx) Start: 05-23-2022 Telephone encounter Frantz oconnell DO Work Phone: [facility] Comment on above: Patient Question Start: 05-21-2022 End: 05-21-2022 ambulatory [facility] Start: 05-20-2022 End: 05-20-2022 Office outpatient visit 15 minutes Perla Davis PA-C Work Phone: [facility] Comment on above: Acute otitis media, left (Primary Dx); Acute bacterial conjunctivitis of left eye Start: 05-05-2022 Telephone encounter Fariba carbajal ORTHODONTIST.UTILITY WORKER FILM PROCESSING Work Phone: [facility] [place] Comment on above: Patient Question Start: 05-01-2022 Telephone encounter Fariba carbajal ORTHODONTIST.UTILITY WORKER FILM PROCESSING Work Phone: [facility] [place] Comment on above: Results Start: 04-27-2022 Telephone encounter Frantz oconnell DO Work Phone: [facility] Comment on above: Patient Question Start: 04-17-2022 End: 04-17-2022 ambulatory NO PRIMARY CARE [facility] Start: 03-17-2022 End: 03-17-2022 ambulatory Fariba Gould ORTHODONTIST.UTILITY WORKER FILM PROCESSING Work Phone: [facility] [place] Comment on above: Bacterial sinusitis (Primary Dx) Start: 03-17-2022 End: 03-17-2022 Telemedicine consultation with patient Fariba Gould ORTHODONTIST.UTILITY WORKER FILM PROCESSING Work Phone: [facility] Start: 03-07-2022 Telephone encounter Frantz oconnell DO Work Phone: [facility] [place] Comment on above: Question Start: 03-07-2022 End: 03-07-2022 ambulatory Katie Rose PT Work Phone: [facility] Comment on above: Lumbosacral radiculo veronika at L5 (Primary Dx) Start: 02-21-2022 End: 02-21-2022 ambulatory Katie Rose PT Work Phone: [facility] Comment on above: Lumbosacral radiculo veronika at L5 (Primary Dx); Herniated intervertebral disc of lumbar spine Start: 02-13-2022 End: 02-13-2022 ambulatory Catarina Manzo MD Work Phone: Neurology Comment on above: Intractable menstrua l migraine without status migrainosus (Primary Dx); Migraine without aura and without status migrainosus, not intractable Start: 02-13-2022 End: 02-13-2022 Telemedicine consultation with patient Catarina Manzo MD Work Phone: [facility] Start: 02-08-2022 ambulatory Frantz hall DO Work Phone: [facility] [place] Comment on above: counseling option Start: 02-08-2022 E-mail encounter fro m caregiver Frantz Benson DO Work Phone: [facility] Start: 02-07-2022 Encounter for kyree robles adult medical examination without abnormal findings FRANTZ BENSON [facility] Start: 02-07-2022 End: 02-07-2022 Patient encounter procedure Frantz Benson DO Work Phone: [facility] [place] Comment on above: Well adult exam (Marlys marilee Dx); Need for influenza vaccination; Pre-menstrual mood disorder; Lumbosacral radiculopathy at L5; Acute bilateral low back pain with bilateral sciatica Start: 02-07-2022 End: 11-18-2024 Patient encounter status Frantz Benson DO Work Phone: [facility] Start: 02-02-2022 End: 02-02-2022 ambulatory Katie Rose PT Work Phone: [facility] Comment on above: Lumbosacral radiculo veronika at L5 (Primary Dx) Start: 01-17-2022 End: 01-17-2022 ambulatory Katie Rose PT Work Phone: [facility] Comment on above: Lumbosacral radiculo veronika at L5 (Primary Dx) Start: 01-10-2022 End: 01-10-2022 ambulatory Alba Boo PT Work Phone: [facility] Comment on above: Lumbosacral radiculo veronika at L5 (Primary Dx); Herniated intervertebral disc of lumbar spine Start: 01-03-2022 End: 01-03-2022 ambulatory Katie Rose PT Work Phone: [facility] Comment on above: Lumbosacral radiculo veronika at L5 (Primary Dx) Start: 12-12-2021 Telephone encounter Frantz Robles Zuleyma oconnell DO Work Phone: [facility] [place] Comment on above: Request for PT order Start: 10-20-2021 End: 10-20-2021 Subsequent hospital visit by physician Us Gaytan 1 RADIO ULTRA [facility] Comment on above: Complex cyst of left ovary [N83.292] Start: 10-11-2021 Refill Catarina Kenny nielsen MD Work Phone: Neurology Comment on above: Refill Request Start: 09-27-2021 End: 09-27-2021 ambulatory Priyanka Ferris ASSEMBLER [employer] Work Phone: [facility] Comment on above: Lumbosacral radiculo veronika at L5 (Primary Dx); Herniated intervertebral disc of lumbar spine Start: 09-26-2021 End: 09-26-2021 ambulatory Ktaie Rose PT Work Phone: [facility] Comment on above: Lumbosacral radiculo veronika at L5 (Primary Dx); Herniated intervertebral disc of lumbar spine Start: 09-22-2021 End: 09-22-2021 ambulatory Priyanka Ferris ASSEMBLER [employer] Work Phone: [facility] Comment on above: Lumbosacral radiculo veronika at L5 (Primary Dx); Herniated intervertebral disc of lumbar spine Start: 09-08-2021 End: 09-08-2021 ambulatory Priyanka Ferris ASSEMBLER [employer] Work Phone: [facility] Comment on above: Lumbosacral radiculo veronika at L5 (Primary Dx); Herniated intervertebral disc of lumbar spine Start: 08-31-2021 End: 08-31-2021 ambulatory Mary Jimenez ASSEMBLER [employer] Work Phone: [facility] Comment on above: Lumbosacral radiculo veronika at L5 (Primary Dx); Herniated intervertebral disc of lumbar spine Start: 08-18-2021 End: 08-18-2021 ambulatory Danay Willis MD Work Phone: Spine Medicine Comment on above: 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 Start: 08-18-2021 End: 08-18-2021 Telemedicine consultation with patient Danay Willis MD Work Phone: [facility] Start: 08-05-2021 Telephone encounter Frantz oconnell DO Work Phone: [facility] Comment on above: Results Start: 07-29-2021 Telephone encounter Frantz oconnell DO Work Phone: [facility] Comment on above: Patient Update Start: 06-17-2021 Telephone encounter Frantz oconnell DO Work Phone: [facility] [place] Comment on above: Lab Orders Start: 05-06-2021 Telephone encounter Frantz oconnell DO Work Phone: [facility] [place] Comment on above: Migraine medication; Patient Update Procedures Date Procedure Procedure Detail Performing Clinician Start: 01-15-2025 Urine test visual color cmprsn ken Abad PA-C Work Phone: Start: 01-15-2025 Saline infus sonohysterography w/color doppler Eder Sykes MD Work Phone: Start: 11-23-2024 Us pelvic nonobstetric image dcmtn limited/f/u Eder Sykes MD Work Phone: Start: 11-22-2024 Us pelvic nonobstetric image dcmtn limited/f/u Eder Sykes MD Work Phone: Start: 11-19-2024 Us pelvic nonobstetric image dcmtn limited/f/u Eder Sykes MD Work Phone: Start: 11-15-2024 Us pelvic nonobstetric image dcmtn limited/f/u Eder Sykes MD Work Phone: Start: 10-31-2024 Screening digital breast tomosynthesis bi Frantz Benson DO Work Phone: Start: 09-19-2024 Antibody screen FRANTZ BENSON Comment on above: Order Comment: Specimen Type: BLOOD SPEC IMEN Ordering Facility: [facility] Address: [address] [place] [id number] Performed By: #### T SPN #### [facility] CLIA [id number] [address] [place] [address] [place] Start: 10-19-2023 Us pelvic nonobstetric image dcmtn limited/f/u Sanna Raymundo APRN.CNM Work Phone: Start: 08-20-2023 Us pelvic nonobstetric image dcmtn limited/f/u Tanja Abad PA-C Work Phone: Start: 03-27-2023 Urine test visual color cmprsn meths Ramirez Lua MD Work Phone: Start: 03-27-2023 Cath & saline/contrast sonohyster/hysterosalpi Eder Sykes MD Work Phone: Start: 03-12-2023 STREP A MOLECULAR (POC) Perla lopez PA-C Work Phone: Start: 10-04-2022 STREP A MOLECULAR (POC) Zakiya Dailey APRN.UTILITY WORKER FILM PROCESSING Work Phone: Start: 06-30-2022 STREP A MOLECULAR (POC) Fariba CLAUDIO RN.UTILITY WORKER FILM PROCESSING Work Phone: Start: 10-20-2021 Us transvaginal Frantz Benson DO Work Phone: Start: 08-17-2021 Adult depression screening assessment Danay Willis MD Work Phone: Start: 11-25-2020 section MICHAEL Andujar Start: 10-06-2020 Adult depression screening assessment Frantz Benson DO Work Phone: Plan of Treatment Date Care Activity Detail Author Start: 2035 Zoster Vaccines (1 of 2) Zoster Vaccines (1 of 2) [facility] Start: 01-31-2028 HPV Testing HPV Testing [facility] Start: 01-31-2028 Pap Testing Pap Testing [facility] Start: 09-12-2028 Screening for malignant neoplasm of cervix [facility] Start: 01-30-2026 Screening for malignant neoplasm of cervix Cervical Cancer Screening [facility] Start: 04-20-2025 End: 04-20-2025 Patient encounter procedure 04/20/2025 2:15 PM EST Office Visit [facility] [address] [place] [address] Eder Sykes MD [address] [place] [address] Follow up [facility] Comment on above: Follow up Start: 04-13-2025 End: 04-13-2025 Patient encounter procedure 04/13/2025 1:00 PM EST Office Visit [facility] [address] [place], [place] [id number] Frantz Benson DO [address] [place], [place] [id number] discuss fertility [facility] [place] Comment on above: discuss fertility Start: 03-15-2025 Covid-19 Vaccine ( season) Covid-19 Vaccine () [facility] Comment on above: Postponed from 01/20/2024 (Declined at t his time) Start: 03-15-2025 Urine microalbumin profile [facility] Comment on above: Postponed from 2004 (Declined at t his time) Postponed from 03/23 (Declined at this time) Start: 02-05-2025 End: 02-05-2025 Patient encounter procedure 02/05/2025 6:00 PM EDT Office Visit [facility] [address] [place] [address] benefit check for hysteroscopy [facility] Comment on above: benefit check for hysteroscopy Start: 02-02-2025 End: 02-02-2025 Patient encounter procedure 02/02/2025 6:00 PM EDT [facility] [address] [place] [address] Nurse Alice Gill [facility] [place] [address] [place] [address] : Televisit- needs date for thaw/rebiopsy no result. Date: Friday 02/02 [facility] Comment on above: : Televisit- needs date for thaw/rebiops y no result. Date: Friday 02/02 Start: 01-23-2025 End: 04-24-2025 RUBELLA IGG ANTIBODY RUBELLA IGG ANTIBODY Lab Routine Pre-conception counseling Expected: 01/23/2025, Expires: 04/24/2025 [facility] Comment on above: Expected: 01/23/2025, Expires: Start: 01-23-2025 End: 04-24-2025 TYPE + SCREEN TYPE + SCREEN Blood Bank Routine Pre-conception counseling Expected: 01/23/2025, Expires: 04/24/2025 [facility] Work Phone: Comment on above: Expected: 01/23/2025, Expires: Start: 01-22-2025 End: 01-22-2025 Patient encounter procedure 01/22/2025 10:20 AM EDT Office Visit [facility] [address] [place] [address] Fermin Field APRN.UTILITY WORKER [employer] [address] [place] [address] 3 months f/up [facility] Comment on above: 3 months f/up Start: 01-20-2025 End: 01-20-2025 Patient encounter procedure 01/20/2025 1:00 PM EDT Office Visit Family [facility] [address] [place] [address] Frantz Benson DO [address] [place] [address] discuss fertility [facility] Comment on above: discuss fertility Start: 01-19-2025 Influenza vaccination [facility] Start: 01-15-2025 End: 01-15-2025 Patient encounter procedure 01/15/2025 12:45 PM EDT Office Visit [facility] [address] [place] [address] Tanja Abad PA-C [address] [place] [address] sis [facility] Comment on above: sis Start: 01-07-2025 End: 01-07-2025 Patient encounter procedure 01/07/2025 12:45 PM EDT Office Visit [facility] [address] [place] [address] Eder Sykes MD [address] [place] [address] post ret visit [facility] Comment on above: post ret visit Start: 12-31-2024 End: 12-31-2024 Patient encounter procedure 12/31/2024 10:30 AM EDT Office Visit [facility] [address] [place] [address] Eder Sykes MD [address] [place] [address] post ret visit [facility] Comment on above: post ret visit Start: 12-29-2024 End: 12-29-2024 Patient encounter procedure 12/29/2024 1:30 PM EDT Office Visit [facility] [address] [place] [address] Eder Sykes MD [address] [place] [address] post ret visit [facility] Comment on above: post ret visit Start: 12-24-2024 End: 12-24-2024 Patient encounter procedure 12/24/2024 10:30 AM EDT Office Visit [facility] [address] [place] [address] Eder Sykes MD [address] [facility] [place] [address] post ret visit [facility] Comment on above: post ret visit Start: 12-12-2024 End: 12-12-2025 US Uterus and Fallopian tubes W saline IU SONOHYSTEROGRAPHY (SIS) US [facility]I Anc Imaging Routine Encounter for fertility testing Expected: 12/12/2024, Expires: 12/12/2025 [facility] Work Phone: Comment on above: Expected: 12/12/2024, Expires: Start: 11-25-2024 End: 11-25-2024 Patient encounter procedure [facility] Comment on above: ret/partner collecting here ret Start: 11-25-2024 End: 11-25-2024 Admission to same day surgery center 11/25/2024 10:48 AM EDT - 11/25/2024 11:42 AM EDT [facility] [address] [place] [address] Melinda Guidry MD [address] [place], [place] [id number] FOLLICLE PUNCTURE FOR OOCYTE RETRIEVAL [facility] Comment on above: FOLLICLE PUNCTURE FOR OOCYTE RETRIEVAL Start: 11-25-2024 Subsequent hospital visit by physician 11/25/2024 10:48 AM EDT Hospital Encounter [facility] [address] [place] [address] Melinda Guidry MD [address] [place], [place] [id number] Female infertility [N97.9] [facility] Comment on above: Female infertility [N97.9] Start: 11-25-2024 End: 11-25-2024 Follicle puncture oocyte retrieval any method [facility] Start: 11-24-2024 End: 11-24-2024 ambulatory 11/24/2024 6:00 PM EDT [facility]ertility [address] [place] [phone] lh p4 hcg [facility] Comment on above: lh p4 hcg Start: 11-24-2024 End: 02-23-2025 Choriogonadotropin.beta subunit [Units/volume] in Serum or Plasma HCG QUANTITATIVE Lab STAT Female infertility Expected: 11/24/2024, Expires: 02/23/2025 [facility] Comment on above: Expected: 11/24/2024, Expires: Start: 11-24-2024 End: 02-23-2025 Lutropin [Units/volume] in Serum or Plasma LUTEINIZING HORMONE Lab STAT Female infertility Expected: 11/24/2024, Expires: 02/23/2025 [facility] Comment on above: Expected: 11/24/2024, Expires: Start: 11-24-2024 End: 02-23-2025 Progesterone [Mass/volume] in Serum or Plasma PROGESTERONE Lab STAT Female infertility Expected: 11/24/2024, Expires: 02/23/2025 [facility] Work Phone: Comment on above: Expected: 11/24/2024, Expires: Start: 11-23-2024 End: 11-23-2024 ambulatory 11/23/2024 10:20 AM EDT Procedure [facility] [address] [place] [address] Infertility [facility] Comment on above: Infertility Start: 11-23-2024 End: 11-23-2024 Nursing evaluation of patient and report 11/23/2024 8:45 AM EDT Nurse Visit [facility] [address] [place] [address] Beac, Nurse Alice [facility] [address] [place] [address] e2 p4 [facility] Comment on above: e2 p4 Start: 11-22-2024 End: 11-22-2024 ambulatory [facility] Comment on above: IVF / e2 / p4 monitoring, IVF / us / e2 / p4 Start: 11-19-2024 End: 11-19-2024 ambulatory 11/19/2024 7:40 AM EDT Procedure [facility] [address] [place] [phone] us e2 [facility] Comment on above: us e2 Start: 11-18-2024 End: 11-18-2024 Patient encounter procedure 11/18/2024 9:20 AM EDT Office Visit [facility] [address] [place] [address] Duncan Guadalupe APRN.UTILITY WORKER [employer] [address] [place] [address] H&P with arianna [facility] Comment on above: H&P with arianna Start: 11-17-2024 Influenza vaccination Influenza Vaccine (#1) [facility] Comment on above: Postponed from 01/20/2024 (Declined at t his time) Start: 11-15-2024 End: 11-15-2024 ambulatory [facility] Comment on above: IVF e2 IVF/US, e2 Start: 10-17-2024 End: 10-17-2024 Patient encounter procedure 10/17/2024 9:00 AM EDT Office Visit [facility] [address] [place], [place] [phone] Fermin Field APRN.UTILITY WORKER [employer] [address] [place] [address] discuss restarting adipex [facility] Comment on above: discuss restarting adipex Start: 09-19-2024 End: 09-19-2024 ambulatory 09/19/2024 3:00 PM EDT [facility] Genetic [facility] [address] [facility] [address] [place], [place] [phone] Heidy Lundberg, [facility] [address] [place] [address] 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] [facility] Comment on above: 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] Start: 09-17-2024 End: 12-17-2024 Chlamydia trachomatis+Neisseria gonorrhoeae DNA [Presence] in Unspecified specimen by ASPEN with probe detection GONORRHEA/CHLAMYDIA NAAT Lab Routine Routine screening for STI (sexually transmitted infection) Expected: 09/17/2024, Expires: 12/17/2024 [facility] Comment on above: Expected: 09/17/2024, Expires: Start: 09-17-2024 End: 12-17-2024 Hepatitis B virus core Ab [Presence] in Serum HEPATITIS B CORE ANTIBODY TOTAL Lab Routine Routine screening for STI (sexually transmitted infection) Expected: 09/17/2024, Expires: 12/17/2024 [facility] Comment on above: Expected: 09/17/2024, Expires: Start: 09-17-2024 End: 12-17-2024 Hepatitis B virus surface Ag [Presence] in Serum HEPATITIS B SURFACE ANTIGEN Lab Routine Routine screening for STI (sexually transmitted infection) Expected: 09/17/2024, Expires: 12/17/2024 [facility] Work Phone: Comment on above: Expected: 09/17/2024, Expires: Start: 09-17-2024 End: 12-17-2024 Hepatitis C virus Ab [Presence] in Serum HEPATITIS C ANTIBODY IA WITH CONFIRMATION Lab Routine Routine screening for STI (sexually transmitted infection) Expected: 09/17/2024, Expires: 12/17/2024 [facility] Comment on above: Expected: 09/17/2024, Expires: Start: 09-17-2024 End: 12-17-2024 HIV 1+2 Ab [Presence] in Serum or Plasma by Immunoassay HIV 1/2 COMBO WITH REFLEX TO DIFFERENTIATION Lab Routine Routine screening for STI (sexually transmitted infection) Expected: 09/17/2024, Expires: 12/17/2024 [facility] Comment on above: Expected: 09/17/2024, Expires: Start: 09-17-2024 End: 12-17-2024 SYPHILIS TREPONEMAL W/REFLEX SYPHILIS TREPONEMAL W/REFLEX Lab Routine Routine screening for STI (sexually transmitted infection) Expected: 09/17/2024, Expires: 12/17/2024 [facility] Comment on above: Expected: 09/17/2024, Expires: Start: 09-17-2024 End: 12-17-2024 TYPE + SCREEN TYPE + SCREEN Blood Bank Routine Encounter for preconception consultation Expected: 09/17/2024, Expires: 12/17/2024 [facility] Comment on above: Expected: 09/17/2024, Expires: Start: 09-17-2024 End: 12-17-2024 VARICELLA ZOSTER IGG VARICELLA ZOSTER IGG Lab Routine Encounter for preconception consultation Expected: 09/17/2024, Expires: 12/17/2024 [facility] Comment on above: Expected: 09/17/2024, Expires: Start: 09-16-2024 End: 09-16-2024 Nursing evaluation of patient and report 09/16/2024 9:00 AM EDT Nurse Visit [facility] [address] [place] [address] Beac, Nurse Alice [facility] [address] [place] [address] [facility] Start: 09-12-2024 End: 09-12-2024 Nursing evaluation of patient and report 09/12/2024 10:30 AM EDT Nurse Visit [facility] [address] [place] [address] Beac, Nurse Alice [facility] [address] [place] [address] ivf teach [facility] Comment on above: ivf teach Start: 09-09-2024 End: 09-09-2024 Patient encounter procedure 09/09/2024 9:30 AM EDT Office Visit [facility] [address] [place] [address] Soila Bardales MD [address] [place] [address] DISCUSS EGG FREEZING [facility] Comment on above: DISCUSS EGG FREEZING Start: 09-03-2024 End: 09-03-2024 Patient encounter procedure 09/03/2024 2:40 PM EDT Office Visit [facility] [address] [place], [place] [phone] Frantz Benson DO [address] [place], [place] [phone] physical [facility] Comment on above: physical Start: 09-03-2024 End: 12-03-2024 CBC W Auto Differential panel - Blood COMPLETE BLOOD COUNT AND DIFFERENTIAL Lab Routine Well adult exam Expected: 09/03/2024, Expires: 12/03/2024 [facility] Comment on above: Expected: 09/03/2024, Expires: Start: 09-03-2024 End: 12-03-2024 Comprehensive metabolic 2000 panel - Serum or Plasma COMPREHENSIVE METABOLIC PANEL Lab Routine Well adult exam Expected: 09/03/2024, Expires: 12/03/2024 [facility] Comment on above: Expected: 09/03/2024, Expires: Start: 09-03-2024 End: 12-03-2024 Hemoglobin A1c in Blood HEMOGLOBIN A1C Lab Routine Well adult exam Expected: 09/03/2024, Expires: 12/03/2024 [facility] Comment on above: Expected: 09/03/2024, Expires: Start: 09-03-2024 End: 12-03-2024 Lipid 1996 panel - Serum or Plasma LIPID PANEL, FASTING Lab Routine Well adult exam Expected: 09/03/2024, Expires: 12/03/2024 [facility] Comment on above: Expected: 09/03/2024, Expires: Start: 09-03-2024 End: 12-03-2024 Thyrotropin [Units/volume] in Serum or Plasma THYROID STIMULATING HORMONE Lab Routine Well adult exam Expected: 09/03/2024, Expires: 12/03/2024 [facility] Comment on above: Expected: 09/03/2024, Expires: Start: 08-27-2024 End: 08-27-2024 ambulatory 08/27/2024 12:30 PM EDT Results Only Green [facility] Draw Station [address] [place] [address] Green [facility] Draw Station Start: 08-25-2024 End: 11-24-2024 MISC SEND OUT TST 1 MISC SEND OUT TST 1 Lab Routine Encounter of female for testing for genetic disease carrier status for procreative management Family history of autism Expected: 08/25/2024, Expires: 11/24/2024 [facility] Work Phone: Comment on above: Expected: 08/25/2024, Expires: Start: 08-25-2024 End: 08-25-2024 Patient encounter procedure 08/25/2024 1:00 PM EDT Office Visit [facility] [address] [place], [place] [phone] [facility] [address] [place] [address] Family history of carrier of genetic disease [ [facility] Comment on above: Family history of carrier of genetic dis ease [ Start: 07-20-2024 Covid-19 Vaccine (#1) Covid-19 Vaccine (#1) [facility] Comment on above: Postponed from 1985 (Declined at t his time) Start: 07-20-2024 Covid-19 Vaccine () Covid-19 Vaccine () [facility] Comment on above: Postponed from 01/19/2023 (Declined at t his time) Start: 07-01-2024 End: 07-01-2024 ambulatory 07/01/2024 10:30 AM EST Education Functional Medicine [address] [place] [phone] Mold Exposure [facility] Comment on above: Mold Exposure Start: 07-01-2024 End: 07-01-2024 Patient encounter procedure 07/01/2024 9:00 AM EST Office Visit Functional Medicine [address] [place] [phone] Rosalina Ron MD [address] [phone] Mold Exposure [facility] Comment on above: Mold Exposure Start: 06-30-2024 End: 06-30-2024 ambulatory 06/30/2024 12:40 PM EST [facility] [address] [place], [place] [phone] Frantz Benson DO [address] [place] [address] Anxiety [facility] Comment on above: Anxiety Start: 04-25-2024 End: 04-25-2024 ambulatory 04/25/2024 8:20 AM EST Distance [facility] [address] [place] [address] Frantz Benson, DO [address] [place] [address] Anxiety [facility] Comment on above: Anxiety Start: 04-01-2024 End: 04-01-2024 ambulatory 04/01/2024 10:00 AM EST [facility] [address] [place] [address] Frantz Benson, DO [address] [place] [address] Anxiety [facility] Comment on above: Anxiety Start: 03-21-2024 End: 03-21-2024 Patient encounter procedure 03/21/2024 11:40 AM EDT Office Visit [facility] [address] [place] [address] Frantz Benson, DO [address] [place] [address] discuss anxiety [facility] Comment on above: discuss anxiety Start: 01-31-2024 End: 01-31-2024 Patient encounter procedure 01/31/2024 1:00 PM EDT Office Visit Cardiology [address] [place] [address] Enmanuel Tatum MD [address] [place] [address] Rapid heart beats Cardiology Comment on above: Rapid heart beats Start: 01-31-2024 End: 01-31-2024 ambulatory 01/31/2024 12:00 PM EDT Results Only Cardiology [address] [place] [address] rapid heart rate Cardiology Comment on above: rapid heart rate Start: 01-20-2024 Covid-19 Vaccine () Covid-19 Vaccine () [facility] Start: 01-20-2024 Influenza vaccination [facility] Start: 01-09-2024 End: 04-09-2024 HEAVY METALS SCRN BL HEAVY METALS SCRN BL Lab Routine Screening for heavy metal poisoning Expected: 01/09/2024, Expires: 04/09/2024 [facility] Work Phone: Comment on above: Expected: 01/09/2024, Expires: Start: 11-18-2023 Influenza [facility]: Postponed from 01/19/2023 (Declined at t his time) Start: 10-21-2023 End: 10-21-2023 Patient encounter procedure 10/21/2023 9:00 AM EDT Office Visit [facility] [address] [place] [address] Duncan Guadalupe APRN.UTILITY WORKER [employer] [address] [place] [address] iui-h [facility] Comment on above: iui-h Start: 10-19-2023 End: 10-19-2023 ambulatory 10/19/2023 7:45 AM EDT Procedure [facility] [address] [place] [phone] Tanja Abad PA-C [address] [place] [address] mid cycle scan non ivf [facility] Comment on above: mid cycle scan non ivf Start: 10-18-2023 End: 10-17-2024 FOLLICULAR US WHI FOLLICULAR US WHI Anc Imaging Routine Female infertility Expected: 10/18/2023, Expires: 10/17/2024 [facility] Work Phone: Comment on above: Expected: 10/18/2023, Expires: Start: 10-08-2023 End: 10-08-2023 Patient encounter procedure 10/08/2023 7:15 AM EDT [facility] Rep[facility]ductive Endocrinology Infertility [address] [place] [address] Eder Sykes MD [address] [place] [address] discuss IVF [facility] Comment on above: discuss IVF Start: 10-05-2023 End: 10-05-2023 ambulatory 10/05/2023 9:20 AM EDT [facility] Medicine [facility] [address] [place], [place] [phone] Frantz Benson DO [address] [place], [place] [phone] Hormonal imbalance [facility] Comment on above: Hormonal imbalance Start: 07-11-2023 End: 10-10-2023 Chlamydia trachomatis+Neisseria gonorrhoeae DNA [Presence] in Unspecified specimen by ASPEN with probe detection GONORRHEA/CHLAMYDIA NAAT Lab Routine Encounter for fertility testing Expected: 07/11/2023, Expires: 10/10/2023 [facility] Work Phone: Comment on above: Expected: 07/11/2023, Expires: 4 Start: 07-11-2023 End: 10-10-2023 Hepatitis B virus surface Ag [Presence] in Serum HEP B SURF AG SCRN Lab Routine Encounter for fertility testing Expected: 07/11/2023, Expires: 10/10/2023 [facility] Work Phone: Comment on above: Expected: 07/11/2023, Expires: 4 Start: 07-11-2023 End: 10-10-2023 Hepatitis C virus Ab [Presence] in Serum HEPATITIS C ANTIBODY IA WITH CONFIRMATION Lab Routine Encounter for fertility testing Expected: 07/11/2023, Expires: 10/10/2023 [facility] Work Phone: Comment on above: Expected: 07/11/2023, Expires: 4 Start: 07-11-2023 End: 10-10-2023 HIV 1+2 Ab [Presence] in Serum or Plasma by Immunoassay HIV 1 2 COMBO(AG/AB),WITH REFLEX TO DIFFERENTIATION Lab Routine Encounter for fertility testing Expected: 07/11/2023, Expires: 10/10/2023 [facility] Work Phone: Comment on above: Expected: 07/11/2023, Expires: 4 Start: 07-11-2023 End: 10-10-2023 RUBELLA IGG AB RUBELLA IGG AB Lab Routine Encounter for fertility testing Expected: 07/11/2023, Expires: 10/10/2023 [facility] Work Phone: Comment on above: Expected: 07/11/2023, Expires: 4 Start: 07-11-2023 End: 10-10-2023 SYPHILIS TOTAL W/REFLEX SYPHILIS TOTAL W/REFLEX Lab Routine Encounter for fertility testing Expected: 07/11/2023, Expires: 10/10/2023 [facility] Work Phone: Comment on above: Expected: 07/11/2023, Expires: 4 Start: 07-11-2023 End: 10-10-2023 TYPE + SCREEN TYPE + SCREEN Blood Bank Routine Encounter for fertility testing Expected: 07/11/2023, Expires: 10/10/2023 [facility] Work Phone: Comment on above: Expected: 07/11/2023, Expires: 4 Start: 05-03-2023 COVID-19 VACCINE (#1) COVID-19 VACCINE (#1) [facility] Comment on above: Postponed from 1985 (Declined at t his time) Start: 05-03-2023 Urine microalbumin profile [facility] Comment on above: Postponed from 2004 (Declined at t his time) Start: 03-09-2023 End: 06-08-2023 ANTI MULLERIAN HORMONE [facility] Work Phone: Comment on above: Expected: 03/09/2023, Expires: 4 Start: 03-09-2023 End: 03-09-[address] 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 [address] MAN 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 Anc Imaging Routine Irregular periods Expected: 03/09/2023, Expires: 03/09/2024 [facility] Work Phone: Comment on above: Expected: 03/09/2023, Expires: 4 Start: 03-09-2023 End: 06-08-2023 TYPE + SCREEN [facility] Work Phone: Comment on above: Expected: 03/09/2023, Expires: 4 Start: 03-04-2023 HPV TESTING HPV TESTING [facility] Start: 03-04-2023 PAP TESTING PAP TESTING [facility] Start: 02-05-2023 End: 04-07-2023 Hemoglobin A1c in Blood HGB A1C Lab Routine Well adult exam Expected: 02/05/2023, Expires: 04/07/2023 [facility] Work Phone: Comment on above: Expected: 02/05/2023, Expires: 3 Start: 02-05-2023 End: 04-07-2023 Lipid 1996 panel - Serum or Plasma LIPID PANEL BASIC Lab Routine Well adult exam Expected: 02/05/2023, Expires: 04/07/2023 [facility] Work Phone: Comment on above: Expected: 02/05/2023, Expires: 3 Start: 02-05-2023 End: 04-07-2023 Thyrotropin [Units/volume] in Serum or Plasma TSH BLD Lab Routine Well adult exam Expected: 02/05/2023, Expires: 04/07/2023 [facility] Work Phone: Comment on above: Expected: 02/05/2023, Expires: 3 Start: 02-05-2023 End: 04-07-2023 Thyroxine (T4) free [Mass/volume] in Serum or Plasma T4 FREE/FREE THYROX Lab Routine Well adult exam Expected: 02/05/2023, Expires: 04/07/2023 [facility] Work Phone: Comment on above: Expected: 02/05/2023, Expires: 3 Start: 02-05-2023 End: 04-07-2023 Triiodothyronine (T3) Free [Mass/volume] in Serum or Plasma T3 FREE BLD Lab Routine Well adult exam Expected: 02/05/2023, Expires: 04/07/2023 [facility] Work Phone: Comment on above: Expected: 02/05/2023, Expires: 3 Start: 01-19-2023 Influenza vaccination [facility] Start: 12-26-2022 End: 02-25-2023 Choriogonadotropin.beta subunit [Units/volume] in Serum or Plasma HCG QUANTITATIVE Lab Routine Miscarriage Expected: 12/26/2022, Expires: 02/25/2023 [facility] Work Phone: Comment on above: Expected: 12/26/2022, Expires: 3 Start: 11-17-2022 Influenza vaccination INFLUENZA (#1) [facility] Comment on above: Postponed from 01/19/2022 (Declined at t his time) Start: 08-17-2022 Adult depression screening assessment DEPRESSION SCREENING [facility] Start: 07-19-2022 End: 09-18-2022 ALGN PENICILLINS IGE ALGN PENICILLINS IGE Lab Routine Penicillin allergy Expected: 07/19/2022, Expires: 09/18/2022 [facility] Work Phone: Comment on above: Expected: 07/19/2022, Expires: 3 Start: 04-27-2022 End: 06-27-2022 Bacteria identified in Urine by Culture URINE CULTURE Microbiology Routine Urinary frequency Expected: 04/27/2022, Expires: 06/27/2022 [facility] Work Phone: Comment on above: Expected: 04/27/2022, Expires: 3 Start: 04-27-2022 End: 06-27-2022 Urinalysis complete panel - Urine URINALYSIS, WITH MICROSCOPIC Lab Routine Urinary frequency Expected: 04/27/2022, Expires: 06/27/2022 [facility] Work Phone: Comment on above: Expected: 04/27/2022, Expires: 3 Start: 02-07-2022 End: 04-09-2022 CBC W Auto Differential panel - Blood CBC + DIFF Lab Routine Pre-menstrual mood disorder Well adult exam Expected: 02/07/2022, Expires: 04/09/2022 [facility] Work Phone: Comment on above: Expected: 02/07/2022, Expires: 2 Start: 02-07-2022 End: 04-09-2022 Comprehensive metabolic 2000 panel - Serum or Plasma COMP METABOLIC PANEL Lab Routine Pre-menstrual mood disorder Well adult exam Expected: 02/07/2022, Expires: 04/09/2022 [facility] Work Phone: Comment on above: Expected: 02/07/2022, Expires: 2 Start: 02-07-2022 End: 04-09-2022 Follitropin [Units/volume] in Serum or Plasma FSH BLD Lab Routine Pre-menstrual mood disorder Expected: 02/07/2022, Expires: 04/09/2022 [facility] Work Phone: Comment on above: Expected: 02/07/2022, Expires: 2 Start: 02-07-2022 End: 04-09-2022 Hemoglobin A1c in Blood HGB A1C Lab Routine Well adult exam Expected: 02/07/2022, Expires: 04/09/2022 [facility] Work Phone: Comment on above: Expected: 02/07/2022, Expires: 2 Start: 02-07-2022 End: 04-09-2022 Progesterone [Mass/volume] in Serum or Plasma PROGESTERONE BLD Lab Routine Pre-menstrual mood disorder Expected: 02/07/2022, Expires: 04/09/2022 [facility] Work Phone: Comment on above: Expected: 02/07/2022, Expires: 2 Start: 02-07-2022 End: 04-09-2022 TESTOSTERONE, FREE AND TOTAL TESTOSTERONE, FREE AND TOTAL Lab Routine Pre-menstrual mood disorder Expected: 02/07/2022, Expires: 04/09/2022 [facility] Work Phone: Comment on above: Expected: 02/07/2022, Expires: 2 Start: 02-07-2022 End: 04-09-2022 Thyrotropin [Units/volume] in Serum or Plasma TSH BLD Lab Routine Pre-menstrual mood disorder Well adult exam Expected: 02/07/2022, Expires: 04/09/2022 [facility] Work Phone: Comment on above: Expected: 02/07/2022, Expires: 2 Start: 02-07-2022 End: 04-09-2022 Thyroxine (T4) free [Mass/volume] in Serum or Plasma T4 FREE/FREE THYROX Lab Routine Pre-menstrual mood disorder Well adult exam Expected: 02/07/2022, Expires: 04/09/2022 [facility] Work Phone: Comment on above: Expected: 02/07/2022, Expires: 2 Start: 02-07-2022 End: 04-09-2022 Triiodothyronine (T3) Free [Mass/volume] in Serum or Plasma T3 FREE BLD Lab Routine Pre-menstrual mood disorder Well adult exam Expected: 02/07/2022, Expires: 04/09/2022 [facility] Work Phone: Comment on above: Expected: 02/07/2022, Expires: 2 Start: 01-19-2022 Influenza vaccination [facility] Start: 11-17-2021 Influenza vaccination INFLUENZA (#1) [facility] Comment on above: Postponed from 01/19/2021 (Declined at t his time) Start: 10-06-2021 Adult depression screening assessment DEPRESSION SCREENING [facility] Start: 01-19-2021 Influenza vaccination INFLUENZA (#1) [facility] Start: 2012 HPV Vaccine (1 - 3-dose SCDM series) HPV Vaccine (1 - 3-dose SCDM series) [facility] Start: 2012 HPV Vaccines (1 - 3-dose standard series) HPV Vaccines (1 - 3-dose standard series) [facility] Start: 2007 DTaP/Tdap/Td Vaccines (1 - Tdap) DTaP/Tdap/Td Vaccines (1 - Tdap) [facility] Start: 2006 Screening for malignant neoplasm of cervix [facility] Start: 2004 Hepatitis B Vaccine (1 of 3 - 19+ 3-dose series) Hepatitis B Vaccine (1 of 3 - 19+ 3-dose series) [facility] Start: 2004 Hepatitis B Vaccines (1 of 3 - 19+ 3-dose series) Hepatitis B Vaccines (1 of 3 - 19+ 3-dose series) [facility] Start: 2004 Urine microalbumin profile [facility] Start: 2003 Anxiety Screening Anxiety Screening [facility] Start: 2003 HEPATITIS C SCREENING HEPATITIS C SCREENING [facility] Start: 2003 Hepatitis C screening Hepatitis C Screening [facility] Start: 2003 HIV SCREENING HIV SCREENING [facility] Start: 2003 HIV screening HIV Screening [facility] Start: 1990 COVID-19 VACCINE (#1) COVID-19 VACCINE (#1) [facility] Start: 1990 COVID-19 VACCINE (1) COVID-19 VACCINE (1) [facility] Start: 1986 MMR Vaccines (1 of 1 - Standard series) MMR Vaccines (1 of 1 - Standard series) [facility] Start: 1985 COVID-19 VACCINE (#1) COVID-19 VACCINE (#1) [facility] Start: 1985 HEPATITIS B (1 of 3 - 3-dose series) HEPATITIS B (1 of 3 - 3-dose series) [facility] Start: 1985 Hepatitis B Vaccine (1 of 3 - 3-dose series) Hepatitis B Vaccine (1 of 3 - 3-dose series) [facility] Start: 1985 HIV screening HIV Screening [facility] Start: 1985 Lipid panel Lipid Panel [facility] Start: 1985 Yearly Adult Physical Yearly Adult Physical [facility] End: 06-17-2022 Comprehensive metabolic 2000 panel - Serum or Plasma COMP METABOLIC PANEL Lab Routine Hypokalemia Hypocalcemia 1 Occurrences starting 06/17/2021 until 06/17/2022 [facility] Work Phone: Comment on above: 1 Occurrences starting 06/17/2021 until 06/17/2022 End: 05-05-2024 Ct soft tissue neck w/contrast material CT NECK SOFT TISSUE W IVCON Radiology Routine Localized enlarged lymph nodes 1 Occurrences starting 04/06/2023 until 05/05/2024 [facility] Work Phone: Comment on above: 1 Occurrences starting 04/06/2023 until 05/05/2024 End: 10-03-2025 DBT Breast - bilateral screening POPPY SCREENING W PATRIZIA Radiology Routine Encounter for screening mammogram for malignant neoplasm of breast 1 Occurrences starting 09/03/2024 until 10/03/2025 [facility] Work Phone: Comment on above: 1 Occurrences starting 09/03/2024 until 10/03/2025 End: 07-30-2024 ECG COMPLETE ECG COMPLETE ECG Routine Chest pain, unspecified type 1 Occurrences starting 07/31/2023 until 07/30/2024 [facility] Work Phone: Comment on above: 1 Occurrences starting 07/31/2023 until 07/30/2024 End: 11-14-2025 Estradiol (E2) [Mass/volume] in Serum or Plasma ESTRADIOL-17B BLD Lab STAT Encounter for fertility testing Daily for 6 Occurrences starting 11/14/2024 until 11/14/2025 [facility] Work Phone: Comment on above: Daily for 6 Occurrences starting 025 until 11/14/2025 HEAVY METALS SCRN BL HEAVY METAL S SCRN BL Lab Routine Screening for heavy metal poisoning 01/10/2024 9:23 AM EDT [facility] MISC SEND OUT TST 1 MISC SEND OU T TST 1 Lab Routine Encounter of female for testing for genetic disease carrier status for procreative management Family history of autism 08/27/2024 12:38 PM EDT [facility] End: 11-19-2025 Progesterone [Mass/volume] in Serum or Plasma PROGESTERONE Lab STAT Female infertility 3 Occurrences starting 11/19/2024 until 11/19/2025 [facility] Work Phone: Comment on above: 3 Occurrences starting 11/19/2024 until 11/19/2025 STREP A MOLECULAR (POC) STREP A MOLECULAR (POC) Microbiology Routine Sore throat Ordered: 06/30/2022 [facility] Work Phone: Comment on above: Ordered: 06/30/2022 US HEAD/NECK SOFT TI SSUE OTHER US HEAD/NECK SOFT TISSUE OTHER Radiology Routine Localized enlarged lymph nodes 04/19/2023 12:25 PM EST [facility] Work Phone: End: 09-07-2022 Us pelvic nonobstetric image dcmtn limited/f/u US FEMALE PELVIS TRANSABD LTD Radiology Routine Complex cyst of left ovary 1 Occurrences starting 08/08/2021 until 09/07/2022 [facility] Work Phone: Comment on above: 1 Occurrences starting 08/08/2021 until 09/07/2022 End: 09-07-2022 Us transvaginal US FEMALE PELVIS TRANSVAG Radiology Routine Complex cyst of left ovary 1 Occurrences starting 08/08/2021 until 09/07/2022 [facility] Work Phone: Comment on above: 1 Occurrences starting 08/08/2021 until 09/07/2022 Us transvaginal US FEMALE PELVIS TRANSVAG Radiology Routine Complex cyst of left ovary 10/20/2021 4:04 PM EDT [facility] Work Phone: [facility] Immunizations Immunization Date Immunization Notes Care Provider Dudley basurto 05-10-2016 influenza virus vacc ine, unspecified formulation Frantz Benson DO Work Phone: [facility] Payers Date Payer Category Payer Self-pay 2024 Managed Care (Private) [employer] [id number] 2018 Private Health Insurance MMO SUP ERMED PPO [id number] 2018 Unknown MMO MMO SUPERMED PLUS [id number] 2018-Present [phone] [address] [place] [address] O [id number] 2018 Unknown [id number] 2018 Unknown [id number] 1985 Unknown [id number]. 479 1985 Unknown [id number] [id number]. 479 1985 Unknown [id number] [id number]. 627 1985 Unknown [id number] [id number]. 627 1985 Unknown [id number] [id number]. 627 1985 Unknown [id number] [id number]. 1244 1985 Unknown [id number] [id number]. 627 1985 Unknown [id number] [id number]. 627 1985 Unknown [id number] [id number]. 627 1985 Unknown [id number] [id number]. 627 1985 Unknown [id number] [id number]. 627 1985 Unknown [id number] [id number]. 1245 Unknown [id number]. 462 Social History Date Type Detail Facility Start: 05-10-2017 End: 02-12-2025 Tobacco smoking status NHIS Never smoked tobacco [facility] Work Phone: Start: 08-10-2021 End: 07-19-2022 Alcohol intake Current drinker of alcohol (finding) [facility] Start: 1985 Sex Assigned At Not on file C [facility] Start: 07-30-2021 End: 02-21-2022 Exposure to SARS-CoV-2 (event) Not sure [facility] Start: 05-10-2017 End: 02-12-2025 Tobacco use and exposure Smokeless tobacco non-user [facility] Start: 03-17-2022 End: 07-19-2022 History SDOH Physical Activity DPW 0 [facility] Start: 03-17-2022 End: 07-19-2022 History SDOH Stress 2 [facility] Start: 03-17-2022 End: 07-19-2022 History SDOH Housing Places Lived 1 [facility] Start: 07-19-2022 History SDOH Social Connections Phone 5 [facility] Start: 07-19-2022 History SDOH Social Connections [facility] Start: 10-04-2022 End: 02-12-2025 Alcohol intake Ex-drinker (finding) [facility] Start: 07-19-2022 End: 02-12-2025 History of Social function [facility] Start: 07-19-2022 End: 02-12-2025 Social connection and isolation panel [facility] Do you belong to any clubs or organizations such as oriental orthodox groups, unions, fraternal or athletic groups, or school groups? No [facility] Are you now , , , , never or living with a partner? [facility] How often to you hav e a drink containing alcohol? Never [facility] Start: 03-05-2014 End: 10-25-2023 How many standard drinks containing alcohol do you have on a typical day? Patient does not drink [facility] Do you feel stress - tense, restless, nervous, or anxious, or unable to sleep at night because your mind is troubled all the time - these days [OSQ] To some extent [facility] (I/We) worried wheth er (my/our) food would run out before (I/we) got money to buy more. Never true [facility] Do you belong to any clubs or organizations such as oriental orthodox groups, unions, fraternal or athletic groups, or school groups? Yes [facility] Do you feel stress - tense, restless, nervous, or anxious, or unable to sleep at night because your mind is troubled all the time - these days [OSQ] Not at all [facility] Sexual Orientation [facility] Start: 08-09-2015 Sex Female (finding) [facility] Medical Equipment Procedure Code Equipment Code Equipment Origin al Text Equipment Identifier Dates To be used to in ject HCG trigger [id number] Start: 10-29-2024 To be used to mi x, draw up and inject HCG trigger [id number] Start: 10-29-2024 To be used to in ject HCG trigger [id number] Start: 01-23-2025 Functional Status Date Assessment Result Facility 02-12-2025 Patient Health [facility] ionnaire 2 item (PHQ-2) [Reported] [facility] Work Phone: 02-12-2025 [facility] suicide s everity rating scale screener - recent [C-SSRS] [facility] Work Phone: 02-12-2025 Functional status 108/77 [facility] Work Phone: 02-12-2025 Vital signs 82 02/12/2025 9: 42 AM EDT Tramaine Mckeon MA [facility] Work Phone: 02-12-2025 [facility] Work Phone: 12-18-2014 Are you deaf, or do you have serious difficulty hearing No 12/18/2014 1:23 PM EDT Maureen Wright LPN No [facility] 12-18-2014 Are you blind, or do you have serious difficulty seeing, even when wearing glasses No 12/18/2014 1:23 PM EDT Maureen Wright LPN No [facility] 12-18-2014 Do you have serious difficulty walking or climbing stairs No 12/18/2014 1:23 PM EDT Maureen Wright LPN No [facility] 12-18-2014 Do you have difficul ty dressing or bathing No 12/18/2014 1:23 PM EDT Maureen Wright LPN No [facility] 12-18-2014 Because of a physica l, mental, or emotional condition, do you have difficulty doing errands alone such as visiting a physician's office or shopping No 12/18/2014 1:23 PM EDT Maureen Wright LPN No [facility] Mental Status Date Assessment Result Facility 12-18-2014 Because of a physica l, mental, or emotional condition, do you have serious difficulty concentrating, remembering, or making decisions No 12/18/2014 1:23 PM EDT Maureen Wright LPN No [facility] Clinical Notes 05-11-2021 to 03-10-2025 Cedrick Laura MD - 02/12/2025 9:30 AM EDTTelephone Encounter - Rianna Maria - 02/03/2025 11:36 AM EDTTelephone Encounter - Rianna Maria - 02/03/2025 11:36 AM EDTPatient Instructions Note Date & Type Note Facility 03-10-2025 Note HNO ID: [id number] Author: ALFREDO LONGO PT Service: ? Author Type: Physical Therapist Type: Progress Notes Filed: 03/10/2025 14:55 Note Text: Episode Visit Count: 1 Therapist That Will Accept/Oversee The Plan Of Care: Alfredo Longo Start of Care Date: 03/10/25 Onset Date: 05/21/24 Patient Identified by Name and Date of : Yes [facility]ER[facility]Y PHYSICAL THERAPY EVALUATION PLAN OF CARE: Assessment: Debra March presents with chief complaint of chronic DURAN's that interferes with Comments Function limited when she has DURAN's, all function. The patient presents with impairments in ADL's, overall function, posture, range of motion, strength, symptom management, and tissue tenderness. PROMIS? (Patient-Reported Outcomes Measurement Information System) scores were reviewed and identified as within normal limits. Prognosis for therapy is Good due to: current objective clinical presentation, good overall health status, acuteness of condition, positive past response to therapy, within-session changes, good support system/ coping skills . The patient will benefit from skilled therapy services to meet the goals established for this plan of care as noted below. Goals for Episode of Care: established 03/10/25 Independent in a Home Exercise Program. Patient will decrease pain rating by 2 points to meet minimal clinical important difference for numeric pain rating scale. Restore pain free cervical ROM to WNL to allow for decreased pain. Maintain proper sitting posture throughout the session to allow for decreased pain Patient Goals: Decrease DURAN's Time Frame for Goals and Treatment : 05/10/25 Planned Interventions, Frequency, and Duration: Current Frequency: 1x/week Duration: 8 weeks Total Number of Visits Planned: 8 Planned Treatment Interventions: Therapeutic exercise (52407), Neuromuscular re-education (02904), Manual therapy (38022), Therapeutic activities (37930), Self-fci management (29868), Patient/Family/Caregiver Education, Body Mechanics Training PLAN FOR NEXT VISIT: Assess carry over of dry needling and HEP. Progress exercises to tolerance. May needle suboccipitals Patient demonstrates good understanding of plan of care and treatment. The above goals and plan of care were discussed and agreed upon by patient/family. SUBJECTIVE: DURAN pain for years with worsening onset. Pain is typically on the R side, temporal and eye. Takes Ubrelvie Patient Goals: Decrease DURAN's Functional Limitations: Comments Functional Limitation Comments: Function limited when she has DURAN's, all function Prior Level of Function: Independent without limitations Intake Information: Prescription present Red Flags Vertebral Fracture Clinical Reasoning: No identified risk factors Cancer Clinical Reasoning: No identified risk factors. Infection Clinical Reasoning: No identified risk factors. Cervical Arterial Dysfunction Clinical Reasoning: No identified risk factors Cervical Myelopathy Diagnostic Rule: No identified risk factors. Red Flags - Cervical Cancer Clinical Reasoning: No identified risk factors. Infection Clinical Reasoning: No identified risk factors. Cervical Arterial Dysfunction Clinical Reasoning: No identified risk factors Cervical Myelopathy Diagnostic Rule: No identified risk factors. Pain: Pain Pain Level: 9 Pain Location: Head - Right, Eye - Right Description: Sharp Frequency: Intermittent PROMIS Scales 05/04/2023 08/18/2021 07/22/2021 Higher is Better Phys Func - T Score 48 (within normal limits) 42 (mild dysfunction) 35 (moderate dysfunction) Phys Func - Percentile 42 21 7 Self-Eff Symptom - T Score 50 (Average) 41 (Average) Self-Eff Symptom - Percentile 50 18 08/18/2021 07/22/2021 Lower is Better Pain Interference - T Score 59 (mild) 68 (moderate) Pain Interference - Percentile 18 4 T-Score and Percentile Interpretation T-scores: mean of general population = 50. 5 points is clinically meaningfully difference Percentiles provide an indication of how the patient's score ranks in relation to the general population. Higher percentile rankings indicate better function/quality of life. 50th percentile is the average of the general population and indicates half of respondents had a worse score. OBJECTIVE MEASURES WITH LEVEL OF FUNCTION: Spine Observations R Cervical Spine Palpation Tenderness: Upper trapezius, Suboccipitals Cervical Spine ROM Cervical ROM : Limitation AROM Education: Education Learning Preferences: Demonstration, Explanation, Performance, Printed Materials Barriers: None Learning/educational needs: Home exercise program, Plan of Care, Posture, Body Mechanics, Health promotion Education Provided: Yes, see treatment interventions for education provided Education Provided To: Patient Education Mode/Type: Demonstration, Explanation/Discussion, Literature/Printed Materials, Performance Response to Ed (more content not included)... [facility] 02-26-2025 Note HNO ID: [id number] Author: ANIYA SUAREZ MD Service: ? Author Type: Physician Type: Progress Notes Filed: 02/26/2025 14:01 Note Text: I have communicated my name and active licensure. The patient's identity and physical location were verified at the time of this visit. Either the patient or their legal business development representative has been informed of the risks and benefits of -- and alternatives to -- treatment through a remote evaluation and consents to proceed with the evaluation remotely. Subjective Debra March is a 39 year old female. She is here to discuss hysteroscopy polypectomy prior to embryo transfer with [facility]. SIS shows 6.3 mm posterior polyp. Denies irregular bleeding or pain. Menstrual cycles q 28 days. Next menses supposed to start 03/02/25. Objective LMP 02/05/2025 (Exact Date) GENERAL: alert and appropriate, in no distress, well-hydrated, well nourished, and happy, smiling, interactive Assessment AND Plan Endometrial polyp Polyp on SIS and [facility] recommends removal of polyp prior to embryo transfer. Patient would like polypectomy through our office at this time. Discussed potential limitations with timing surgery with her cycle. Discussed r/b/a hysteroscopy polypectomy and questions answered. Will work on scheduling pre op visit and surgery. Visit was conducted via [employer] Patient Location: Patient Home or Place of Residence [facility] 02-24-2025 Note HNO ID: [id number] Author: DEVON OSMAN LGC Service: ? Author Type: Genetic Counselor Type: Progress Notes Filed: 02/24/2025 18:43 Note Text: [facility] Consultation Note Genetic Counselor: Devon Reyes, MS, CGC, PhD Patient: Debra March Patient Name and confirmed at initiation of visit. High Level Summary: The patient's family history is potentially suggestive of sporadic cancer vs a hereditary cancer syndrome. The patient provided informed consent for updated genetic testing including Custom Multi-Cancer Panel and Hereditary Myelodysplastic Syndrome/Leukemia Panel with preliminary evidence genes through [employer]. Results are expected in 2-3 weeks from the time of sample collection. We will request that [employer] sends a buccal kit to the patient's home. The patient should follow up with me if they do not receive this kit within one week of today's appointment. IDENTIFICATION AND CHIEF COMPLAINT: Debra March is a 39 year old female initially seen for genetic counseling on 03/24/21 to discuss her family history of cancer and the possibility of a hereditary predisposition to cancer. At that time genetic testing for hereditary cancer syndromes was pursued. She returns today to review options for updated genetic testing. HISTORY OF PRESENT ILLNESS: Debra March is a 36 year old female with no personal history of cancer. 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 may sometimes experience a short period of breathing paralysis following anesthesia (such as succinylcholine or mivacurium) Factor 5 Leiden mutation, heterozygous (HCC) Genetic disorder (HCC) Lumbosacral radiculopathy at L5 08/19/2021 PAST SURGICAL HISTORY Procedure Laterality Date DELIVERY ONLY , low transverse x 3 11/02/15,01/09/19, 7/8/21 TONSILLECTOMY PRIMARY/SECONDARY Tonsillectomy CANCER SURVEILLANCE HISTORY: Mammograms: No Breast MRI's: No Breast Biopsies: No Colonoscopy: Yes / hematochezia, diverticulitis EGD: No GI Polyps: No Pelvic Exam: Yes / annually Pap Smear: Yes / as recommended CA-125: No Transvaginal Ultrasound: No Dermatology: sees occasionally for warts REPRODUCTIVE HISTORY AND PERSONAL RISK ASSESSMENT FACTORS: Weight: Last 1 Encounter Wt Readings: Date: Wt: 04/04/2021 83.5 kg (184 lb) Height: Last 1 Encounter Ht Readings: Date: Ht: 04/01/2021 157.5 cm (5' 2.01") Menarche was at age 12 Premenopausal Uterus Intact: Yes Ovaries Intact: Yes A0 , first live at age 30 Breast fed: Yes She has not previously undergone treatment for infertility. She has not used oral contraception pills. She has not used HRT in the past. Tyrer-Cuzick - 16.6% SOCIAL HISTORY: Social History Tobacco Use Smoking status: Never Smokeless tobacco: Never Vaping Use Vaping status: Never Used Substance Use Topics Alcohol use: Not Currently Drug use: No FAMILY HISTORY: Previously obtained detailed, 4-generation family history was reviewed and updated. Significant diagnoses are listed below: Mother at 61 due to multiple myeloma Maternal grandmother, 84, history of breast cancer diagnosed at 65 and treated with radiation therapy Maternal great uncle at 30 due to colorectal cancer Maternal first cousin once removed at 68 due to colorectal cancer Maternal first cousin once removed history of breast cancer in her 40's Paternal first cousin at 40 years old due to acute leukemia, Paternal grandmother at 60 due to brain cancer Father, 65, no history of cancer Paternal aunt and two paternal uncles with no history of cancer Family History Document (04/28/2021) A copy of the patient's pedigree will be available under the scanned documents tab following today's visit. Results Debra March's Common Hereditary Cancers Panel through [employer] was negative for a pathogenic variant. 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 A VUS is a genetic variant for which insufficient data exists in order to determine if it is associated with disease (deleterious mutation) or is a normal genetic variant which can occur in the population without disease (benign polymorphism). A scanned copy of this test report is available in [facility] through Results Review under molecular genetics. The Common Hereditary Cancer Panel includes APC, CB, AXIN2, BARD1, BMPR1A, BRCA1, BRCA2, BRIP1, CDH1, CDK4, CDKN2A, CHEK2, CTNNA1, DICER1, EPCAM, GREM1, HOXB13, KIT, MEN1, MLH1, MSH2, MSH3, MSH6, MUTYH, NBN, NF1, NTHL1, PALB2, PDGFRA, PMS2, POLD1, POLE, PTEN, RAD50, RAD51C, RAD51D, SDHA, SDHB, SDHC, SDHD, SMAD4, SMARCA4, STK11, TP53, TSC1, TSC2, VHL. The Comprehensive Common Cancers p (more content not included)... [facility] 02-23-2025 Note HNO ID: [id number] Author: MICHELLE MENSAH MD Service: ? Author Type: Physician Type: Progress Notes Filed: 02/23/2025 09:52 Note Text: Debra March is a 39 year old female who presents for problem visit to purse hysteroscopic resection of a known endometrial poly as prerequisite and in preparation for IVF.. Note hx of three CSs HPI: Transvaginal, 3D ultrasound examination, Color Doppler examination, Saline Infusion Sonohysterogram Uterus Uterus: Visualized Uterus position: retroverted Description of uterine malformations: none Myometrium: heterogeneous Endometrium: polyp noted Cervix details: normal Uterus length 86 mm Uterus width 56 mm Uterus height 47 mm Uterus Vol 118.0 cm? Endometrial thickness single layer 2.7 mm Endom. th. 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 History Comments: Sexual Activity: Yes; Male Contraception: No contraception data on record 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 may sometimes experience a short period of breathing paralysis following anesthesia (such as succinylcholine or mivacurium) Factor 5 Leiden mutation, heterozygous (HCC) Genetic disorder (HCC) Lumbosacral radiculopathy at L5 08/19/2021 PAST SURGICAL HISTORY Procedure Laterality Date DELIVERY ONLY , low transverse x 3 11/02/15,01/09/19, 11/25/20 TONSILLECTOMY PRIMARY/SECONDARY Tonsillectomy FAMILY HISTORY Problem Relation Age of Onset Cancer Mother 55 multiple myeloma Hyperlipidemia Father Diabetes Father borderline Hyperlipidemia Brother Breast Cancer Maternal Grandmother Diabetes Maternal Grandmother Heart Maternal Grandmother Heart Maternal Grandfather Cancer Paternal Grandmother Brain Heart Paternal Grandfather Heart Attack Paternal Grandfather No Known Problems Daughter Ovarian cancer No Family History SOCIAL HISTORY[1] Current Outpatient Medications Medication Sig ubrogepant (UBRELVY) 100 mg tablet Take 1 tablet by mouth as needed at onset of migraine. May repeat dose at 2 hours if needed. Max 200 mg per 24 hours. chorionic gonadotropin (PREGNYL) 10,000 unit solr Inject 10,000 units once for HCG Trigger. Mix vials as directed per nursing in office. Administer subcutaneous. Needle, Disp, 27 G (BD DISPOSABLE NEEDLES) 27 gauge x 1/2" ndle To be used to inject HCG trigger Syringe with Needle, Disp, (BD LUER-AGUSTIN SYRINGE) To be used to draw up HCG trigger progesterone micronized (PROMETRIUM) 200 mg capsule Insert 200mg vaginally in AM and 200mg vaginally in PM No current facility-administered medications for this visit. Allergies As of Date: 02/23/2025 Allergen Noted Reaction AMOXICILLIN 12/18/2014 Rash CEFTIN [CEFUROXIME AXETIL] 12/18/2014 GI Upset ILOSONE 12/18/2014 Rash NALDECON 03/30/2021 Other: See Comments PENICILLIN 12/18/2014 Rash PHENYLEPHRINE 03/30/2021 Other: See Comments [id number] 03/30/2021 Other: See Comments PSEUDOEPHEDRINE 03/30/2021 Other: See Comments RED DYE 03/30/2021 Other: See Comments Fully Assessed 02/18/2025 REVIEW OF SYSTEMS Abdomen: No bloating, early satiety, indigestion, or increased flatulence. No abdominal pain, nausea, vomiting, diarrhea, or constipation. Bladder: No dysuria, gross hematuria, urinary frequency, urinary urgency, or incontinence. Breast: No breast lumps, nipple d/c, overlying skin changes, redness or skin retraction. Expanded ROS: N/A Allergies and current medication updated:Yes SENSITIVE EXAM: Sensitive exam not performed. EXAM: LMP 02/05/2025 GENERAL: pleasant, female in no apparent distress ASSESSMENT AND PLAN: Assessment AND Plan Endometrial polyp needs hysteroscopic resection rec. between 6-11 Female infertility, secondary pursuing IVF pending removal of polyp ftft>30m Michelle Mensah MD [1] Social History Tobacco Use Smoking status: Never Smokeless tobacco: Never Vaping Use Vaping status: Never Used Substance Use Topics Alcohol use: Not Currently Drug use: No [facility] 02-18-2025 Note HNO ID: [id number] Author: FRANTZ BENSON, DO Service: ? Author Type: Physician Type: Progress Notes Filed: 02/18/2025 16:32 Note Text: CC: Debra March is a 39 year old female who presents to the office for followup HPI: Diagnosed with a polyp uterine, states needs a referral for surgical removal. She is considering implanting one of her embryos with IVF upcoming and needs this done prior. Asymptomatic Obesity, weight at 182 lbs, tried to take the Topamax, feels it is causing her hyperactivity and she hasn't noticed any success with improvement in her appetite or weight loss. Her weight is stable when compared to prior office visit. 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 May repeat dose at 2 hours if needed. Max 200 mg per 24 hours. chorionic gonadotropin (PREGNYL) 10,000 unit solr Inject 10,000 units once for HCG Trigger. Mix vials as directed per nursing in office. Administer subcutaneous. Needle, Disp, 27 G (BD DISPOSABLE NEEDLES) 27 gauge x 1/2" ndle To be used to inject HCG trigger Syringe with Needle, Disp, (BD LUER-AGUSTIN SYRINGE) To be used to draw up HCG trigger progesterone micronized (PROMETRIUM) 200 mg capsule Insert 200mg vaginally in AM and 200mg vaginally in PM No current facility-administered medications for this visit. ALLERGIES Allergen Reactions Amoxicillin Rash Ceftin [Cefuroxime * GI Upset Vomiting and diarrhea Ilosone Rash Naldecon Other: See Comments Penicillin Rash Phenylephrine Other: See Comments hallucinations [id number]-[id number]* Other: See Comments hallucinations Pseudoephedrine Other: See Comments hallucinations Red Dye Other: See Comments hallucinations SOCIAL HISTORY[1] ROS: See HPI PE: BP 110/70 Pulse 80 Temp (Src) 97.4 (Left Tympanic) Resp 16 Wt 182 lb (82.6kg) LMP 02/05/2025 Gen: AANDOX3, NAD, non-toxic appearing HEENT: PERRLA, EOMs intact b/l, nares without drainage, pharynx without erythema, exudate, lesions, or drainage. Uvula midline. Neck: No LAD, no thyromegaly, no meningismus. CV: RRR, no murmur Lungs: CTA b/l, no wheezing Skin: No rashes, lesions, or wounds on exposed skin. ASSESSMENT/PLAN: 1. Uterine polyp - ICD9: 621.0, ICD10: N84.0 (primary diagnosis) Referral to [facility] for opinion for removal 2. Class 1 obesity with body mass index (BMI) of 33.0 to 33.9 in adult, unspecified obesity type, unspecified whether serious comorbidity present - ICD9: 278.00, V85.33, ICD10: E66.811, Z68.33 Stable - Behavioral intervention, - PSMF, and - Eat well program Stop topamax due to SE and no improvement in her symptoms Frantz Benson DO Return if no improvement. Follow up with Frantz Benson DO. To ER if develops chest pain, shortness of breath. Discussed risks, benefits, alternatives, and potential side effects of medications. Patient/Guardian expressed understanding and agreed with the plan. See patient instructions. Frantz Benson DO [address] [place] [address] [1] Social History Tobacco Use Smoking status: Never Smokeless tobacco: Never Vaping Use Vaping status: Never Used Substance Use Topics Alcohol use: Not Currently Drug use: No [facility] 02-12-2025 History of Present illness Narrative Images from the original note were not included. Visit Type: In Person Dual visit conducted with patient and partner. Authorization obtained from both the patient and their partner to share PHI with one another and access partners EMR in order to review testing, results, and treatment plan. NEW FERTILITY PATIENT VISIT Referred by: self OB: Dr. Sher Accompanied today by: My Tara March , Tara March - : [birth year]. Debra March is a 39 y.o. female who presents with secondary and to discuss possible transfer of embryos that she has creates at [facility] to our clinic. She has been seeing Dr. Farideh Perez. Of note her records from [facility] are listed under the name Debra Mercado and this chart is marked for merge. She was scheduled for a hysteroscopy for evaluation and management of a possible polyp based on her evaluation at [facility] but it was cancelled. She does not wish to move forward with treatment. The no result embryo was recently rebiopsied and sent for re-testing those results are pending last week (week of 02/02). She has a history of 3 prior deliveries via low transverse . No antepartum or complication. Two of her sons have been formally evaluated and undergone genetic testing, one for Autism but he does not have a definitive diagnosis (Lukasz, 6yo). They went for a genetic consultation and in the process he underwent genetic testing which revealed 2p16.3 deletion. 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 She has a diagnosis of ADHD but has no other issues that can be attributed to this. She was counseled that an affected child may present on a broad spectrum and they were unwilling to have a child with this mutation so they moved forward with PGT-M testing for her embryos. Mario also has testing which revealed a de sonam 22q11/DiGeorge per their report from the genetic counselors. Developmentally he has apraxia but has had no behavioral or medical issues to date and has been meeting his milestones. She has a history of FVL heterozygosity but no personal history of DVT. She notes that her mother had a history of prior DVT in . She has a history of Ubrelvy for management of migraine headaches but plans to stop this in . She follows yearly with neurology. She denies a history of migraine with aura. She also notes a history of pseudocholinesterase deficiency, and notes no serious of anesthetic complications but just notes some difficulty waking up but denies any cardiovascular or respiratory complications. Have you had any concerns about your fertility treatments so far? What are you goals for today's visit? I want to transfer my embryo in March What causes of infertility have been identified on your workup so far? genetics Past Infertility Treatments: Yes Please summarize your fertility treatments to date. I have my embryos ready to go. I need to remove a polyp before my transfer. As far as you are aware, do you have insurance coverage for fertility diagnostic testing and/or fertility treatments? 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 Hysterosalpingogram: 03/2023 at [facility] Procedure Saline infused ultrasound was performed and shows that the endometrial cavity is normal in size and contour. No focal endometrial thickening, endometrial polyps or sub mucosal fibroids are observed. The anterior single layer endometrial thickness measures 3.8 mm and the posterior single layer endometrial thickness measures 3.3 mm. Hysterosalpingo contrast sonography was performed and prompt passage of air bubbles was noted through the tubal ostia and confirmed bilateral tubal patency. Scintillation was noted in both adnexa at the end of the procedure. Saline Infused Sonography (12/2024) Procedure Saline infused ultrasound was performed and shows evidence of intrauterine pathology. An endometrial polyp was seen originating from the posterior wall* measuring 7 x 5 x 7 *mm. The anterior single layer endometrial thickness measured 2.7 mm and the posterior single layer endometrial thickness measured 2.7 mm. To characterize the endometrial cavity, three dimensional imaging was created on a dedicated stand-alone 3D workstation with images created and archived, and supervised and reviewed by the interpreting physician utilizing images from an ultrasound scan performed today. Performed By: Alba Aguilera RDMS Read By: Luciana Asher MD Hysteroscopy was recommended but cancelled at [facility] prior to proceeding. [facility] Pelvic Ultrasound: multiple follicle scans in [facility] chart reviewed. Prior Labs Ref Range & Units 5 mo ago Anti Mullerian Hormone 0.15 - 7.49 ng/mL 3.59 Resulting [facility] LAB Specimen Collected: 08/27/24 12:38 TSH 0.270 - 4.200 mIU/L 1.550 Resulting [facility] LABORATORY Specimen Collected: 09/09/24 09:36 Varicella Zoster IgG, Qual Positive Positive Resulting [facility] LAB Specimen Collected: 09/19/24 10:56 Rubella IgG, Qual Positive Positive Resulting [facility] LABORATORY Specimen Collected: 07/12/23 10:19 TYPE + SCREEN Order: [id number] Component 4 mo ago ABO O Rh(D) Positive Antibody Screen Negative Type and Screen Expiration 09/22/2024 23:59 Resulting [facility] BLOOD BANK Specimen Collected: 09/19/24 10:56 [facility]: Latest Reference Range & Units 09/09/24 09:36 Hemoglobin A1C 4.3 - 5.6 % 5.3 (E) STI Testing: GONORRHEA/CHLAMYDIA NAAT Order: [id number] Component Ref Range & Units 4 mo ago Neisseria gonorrhoeae RNA Not detected Not detected Chlamydia trachomatis RNA Not detected Not detected Resulting [facility] LABORATORY Narrative Performed by [facility] Specimen Collected: 09/19/24 11:02 HBsAg Nonreactive Nonreactive Resulting [facility] LABORATORY Specimen Collected: 09/19/24 10:56 Ref Range & Units 4 mo ago Hepatitis B Core Ab, Total Negative Negative Comment: No evidence of current or past infection with Hepatitis B virus. Should recent infection be suspected, repeat testing may be considered 3-4 weeks after this draw. Hep C Antibody IA Nonreactive Nonreactive Comment: The result suggests no evidence of active infection with Hepatitis C virus. Should recent infection be suspected, repeat testing may be considered 4-6 weeks after this draw. Resulting [facility] LABORATORY Specimen Collected: 09/19/24 10:56 HIV 12 Combo (Ag/Ab) Nonreactive Nonreactive HIV Interpretation Comment: No evidence of HIV-1 or HIV-2 infection. Should recent infection be suspected, repeat testing may be considered 2-3 weeks after this draw. Resulting Agency [facility] Specimen Collected: 09/19/24 10:56 Syphilis Treponemal Screen Nonreactive Nonreactive Resulting Agency [facility] Specimen Collected: 09/19/24 10:56 Relationship Status: Have you ever been ? Yes How many times have you been ? 4 Have you ever had a miscarriage? Yes How many times have you had a miscarriage? 1 OB Hx OB History 4 Para 3 Term 3 AB 1 Living 3 SAB 1 IAB Ectopic Multiple Live Births [facility] HISTORY Have you ever been diagnosed with a sexually transmitted disease? No Please select all that are applicable: Have you ever had Pelvic Inflammatory Disease? No Have you had an abnormal PAP smear? No Date & Result of last PAP smear: 02/12/24, NILM, no HPV testing noted. Have you ever had an abnormal Mammogram? No Date & result of your last mammogram: 10/31/24 IMPRESSION: There is no mammographic evidence of malignancy in either breast. Routine screening mammogram is recommended. Annual mammogram will be due in 1 year. BI-RADS Category 1: Negative Do you have pelvic pain? No Do you have pain with intercourse? No Do you use lubricants with intercourse? Do you have pain with bowel movements? No Do you have pain with a full bladder? No MENSTRUAL HISTORY LMP: Other Menarche: Age 11 Contraception: none Cycle length: 28 Describe your bleeding: Average Dysmenorrhea: No ENDOCRINE/INFERTILITY HISTORY Duration of infertility: 1-5 years Nipple Discharge: No Vision changes: No Headaches: Yes - Migraine without aura. Excess hair growth: No Excessive hair loss: Yes Acne: No Oily skin: No Recent weight change Weight gain: Yes Weight loss: No Exercise more than 3 times a week: No PMH Medical History[1] MEDICATIONS Medications Ordered Prior to Encounter[2] - Ubrelvy (migraines)--plans to d/C prior to . PSH Surgical History[3] PSYCH HISTORY Have you ever been diagnosed with a mental health Issue? Have you ever been hospitalized for a mental health disorder? 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 No Do you have a history of domestic violence? No Do you feel safe at home? Yes Do you have a history of any negative sexual experience such as incest or rape? No PARTNER HISTORY Partner Name: Tara March Partner : 04/15/87 Partner email: [email or web address] Occupation: [employer] Prior fertility history: PMH: Hodgkin Lymphoma 11/2020 PSH: Smoking:No Alcohol Use: No Drug Use: No Medications: Injuries: Yes STD: No Please select all that are applicable: SA: Yes SA Results: Yes FAMILY HISTORY Family History[5] CANCER HISTORY Breast: Maternal grandma Ovarian: no Colon: Great uncle, first cousin both maternal side Endometrial: no FAMILY VTE HISTORY Family History of Blood Clots: My mom had a DVT with first almost GENETIC HISTORY Ethnic Background Patient: White Partner: White Genetic Disease in Family Patient: Yes - See HPI Partner: No Defects in Family Patient: No Partner: No Genetic screening performed previously: yes see HPI. BMI: BMI Readings from Last 1 Encounters: 02/12/25 33.07 kg/m VITALS: BP 108/77 Pulse 82 Temp 36.4 C (97.5 F) (Temporal) Resp 20 Ht 1.575 m (5' 2") Wt 82 kg (180 lb 12.8 oz) LMP 02/02/2025 SpO2 98% BMI 33.07 kg/m ASSESSMENT 39 y.o. 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 She has one child who has inherited this chromosomal deletion. COUNSELING We discussed in detail Debra's prior treatment and evaluation at [facility] including her IVF stimulation and subsequent PGT-A and M testing. The genetic counseling notes regarding this testing and subsequent counseling about possible outcomes for an affected child were not available and therefore could not be reviewed for today's appointment. She states she has been adequately counseled and hopes to move forward with transfer of her unaffected/euploid blastocysts. She has a repeat biopsy from a prior no result embryo pending. We reviewed our clinic policy of cases of possible transfer of embryos from other clinic being reviewed by our IVF greenskeeper laborer. We reviewed she will need to complete and submit documentation for review and the final decision regarding candidacy would be made by the IVF greenskeeper laborer. Is she is deemed a candidate for transfer would plan to follow up to discuss hysteroscopy to address previously detected endometrial polyp on [facility] and to discuss FET planning. May need PAT consult given reported history of cholinesterase deficiency. She has a history of FVL heterozygosity without personal history of DVT/VTE and has previously taken anticoagulation in two of her pregnancies. She is open to discussing whether or not this is medically indicated at a future visit. Routine Testing [facility]ertility Center STDs Within 1 year Genetic carrier Waiver/Completed T&S Within 1 year AMH Within 1 year TSH Within 1 year Rubella/Varicella Within 5 years PLAN No orders of the defined types were placed in this encounter. GENETIC SCREENING PATIENT Completed previously, she will have records sent to our office. PARTNER Yes Semen Analysis: Completed previous--embryos already created at [facility]. FOLLOW UP Complete and submit paperwork to IVF greenskeeper laborer regarding request for possible transfer of embryos from [facility]. Consults: will evaluate candidacy for anticoagulation in given she is FVL heterozygote with no personal history of clot. Open to speaking with MFM if indicated. Chart to primary nurse for care coordination and patient check list/education Enroll in Engaged MD Take vitamins, vitamin D 2000 IUs daily Discussed that pap and mammogram must be updated per ACOG guidelines before treatment can begin--both UTD Discussed that treatment cannot proceed until checklist items are complete 6 week follow up with MD Additional testing for BMI < 18 or > 40: NA Completion: Ectopic Risk: No Medically Complex: No Fertility Plan Update: - Will send form to Debra to have our greenskeeper laborer evaluate her embryos candidacy for transfer to our clinic. Discussed further decision making would be pending the decision of the lab. - We will follow up with a virtual visit if approved to discuss FET protocols and plan of care. - She has a polyp detected on [facility] that she was unable to remove at [facility] and she is interested in moving forward with our practice for this if her request for transfer of embryos to our office is approve. - May need PAT consult given pseudocholinesterase deficiency documented in [facility] chart though she denies any issues with anesthesia during her egg retrieval. - They will send their genetic counseling notes to our office. Intimate Exam Performed: No, an intimate exam was not performed at this encounter. 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 [3] Past Surgical History: Procedure Laterality Date SECTION, LOW TRANSVERSE x3 at term [4] Social History Tobacco Use Smoking status: Never Smokeless tobacco: Never Substance Use Topics Alcohol use: Not Currently Drug use: Never [5] No family history on file. documented in this encounter [facility] Work Phone: 02-05-2025 Note HNO ID: [id number] Author: RIANNA MARIA, ? Service: ? Author Type: Technologist Type: Progress Notes Filed: 02/05/2025 11:39 Note Text: Thaw, biopsy, refreeze, charge only for thaw of no result embryo. Rianna Maria [facility] 02-03-2025 Telephone encounter Note Called patient and we will thaw, biopsy, and refreeze embryo tomorrow. Rianna Maria [facility] 02-03-2025 Miscellaneous Notes Called patient and we will thaw, biopsy, and refreeze embryo tomorrow. Rianna Maria documented in this encounter [facility] 02-02-2025 Note HNO ID: [id number] Author: MARCY WOODRUFF, RN Service: ? Author Type: Registered Nurse Type: Progress Notes Filed: 02/02/2025 13:28 Note Text: Reviewed with patient the date to thaw and re biopsy embryos is 02/25/25. Pt needs hysteroscopy polypectomy. Orders placed. Message sent to navigator to assist with scheduling. Marcy Woodruff RN February 02, 2025 1:28 PM [facility] 02-02-2025 History of Present illness Narrative Reviewed with patient the date to thaw and re biopsy embryos is 02/25/25. Pt needs hysteroscopy polypectomy. Orders placed. Message sent to navigator to assist with scheduling. Marcy Woodruff RN February 02, 2025 1:28 PM documented in this encounter [facility] 01-30-2025 Telephone encounter Note Spoke with patient regarding thaw/rebiopsy of no result embryo. States genetic results are in. Patient will call embryology lab. Leola Dawn RN January 30, 2025 3:38 PM [facility] 01-30-2025 Miscellaneous Notes Spoke with patient regarding thaw/rebiopsy of no result embryo. States genetic results are in. Patient will call embryology lab. Leola Dawn RN January 30, 2025 3:38 PM Patient is reaching out they would like the results of the genetic testing PLEASE CALL SPOUSE NAMED TARA MARCH, documented in this encounter [facility] 01-30-2025 Telephone encounter Note Patient is reaching out they would like the results of the genetic testing PLEASE CALL SPOUSE NAMED TARA MARCH, [facility] 01-23-2025 Telephone encounter Note Spoke with patient in 01/23 Telephone encounter Delaney Jones RN January 23, 2025 2:48 PM [facility] 01-23-2025 Miscellaneous Notes Spoke with patient in 01/23 Telephone encounter Delaney Jonse RN January 23, 2025 2:48 PM [facility] 01/15/25: Indication Fertility Testing Impression Saline infusion sonohysterogram demonstrated an intracavitary lesion. The details of these findings are described in the procedure section below. Uterus: Polyp(s): Size 7 mm x 5 mm x 7 mm. Mean 6.3 mm. Posterior Right Ovary: Size 37 mm x 30 mm x 31 mm Left Ovary: Size 30 mm x 23 mm x 20 mm documented in this encounter [facility] 01-23-2025 Telephone encounter Note Called patient to number listed, verified pt. Patient of Dr. Perez'jessica who say Dr. Guidry for post retrieval. She needs orders for polyp removal. She cannot take OCP, will need to be done cycle day 5-11. She uploaded her consents needed for PGT testing. Episode created and checklist updated. Delaney Jones RN January 23, 2025 2:36 PM [facility] 01-23-2025 Miscellaneous Notes Called patient to number listed, verified pt. Patient of Dr. Perez'jessica who say Dr. Guidry for post retrieval. She needs orders for polyp removal. She cannot take OCP, will need to be done cycle day 5-11. She uploaded her consents needed for PGT testing. Episode created and checklist updated. Delaney Jones RN January 23, 2025 2:36 PM (Lab) Patient's Spouse is calling in and they want to get more DNA out of the embryo (Nurse)Has questions about SIS results (Nurse) Needs new script for HCG for transfer documented in this encounter [facility] 01-23-2025 Telephone encounter Note (Lab) Patient's Spouse is calling in and they want to get more DNA out of the embryo (Nurse)Has questions about SIS results (Nurse) Needs new script for HCG for transfer [facility] 01-22-2025 Telephone encounter Note [facility] 01/15/25: Indication Fertility Testing Impression Saline infusion sonohysterogram demonstrated an intracavitary lesion. The details of these findings are described in the procedure section below. Uterus: Polyp(s): Size 7 mm x 5 mm x 7 mm. Mean 6.3 mm. Posterior Right Ovary: Size 37 mm x 30 mm x 31 mm Left Ovary: Size 30 mm x 23 mm x 20 mm [facility] 01-20-2025 Instructions Frantz Benson DO - 01/20/2025 1:42 PM EDT Chronic headaches [facility] Magnesium glycinate or gluconate or citrate at 400-800 mg a day Vitamin D3 at least 2000 international unit(s) a day Riboflavin 400 mg a day documented in this encounter [facility] 01-20-2025 Note HNO ID: [id number] Author: FRANTZ BENSON DO Service: ? Author Type: Physician Type: Progress Notes Filed: 01/23/2025 08:44 Note Text: CC: Debra March is a 39 year old female who presents to the office for follow up HPI: Obesity, weight at 180 lbs. Previously at 183-184 lbs about 3 months ago. Knows need for weight loss. She is considering Invitro/Reproductive endocrine treatment She was tried on medication Metformin - stopped this per patient because she felt it caused hair loss and headache She was then tried on Phentermine- stopped this per patient because she felt it caused heart rate increase She is interested in losing 10-20 lbs before attempts at Less stress in her life now that her family is living with her father and saving money to buy another home in future. + chronic headaches, unsure trigger. No new vision changes, no fevers or chills. No hearing changes. Not worse DURAN of life. 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 ubrogepant (UBRELVY) 100 mg tablet Take 1 tablet by mouth as needed at onset of migraine. May repeat dose at 2 hours if needed. Max 200 mg per 24 hours. No current facility-administered medications for this visit. ALLERGIES Allergen Reactions Amoxicillin Rash Ceftin [Cefuroxime * GI Upset Vomiting and diarrhea Ilosone Rash Naldecon Other: See Comments Penicillin Rash Phenylephrine Other: See Comments hallucinations Dcxxmkdepiz-[id number]* Other: See Comments hallucinations Pseudoephedrine Other: See Comments hallucinations Red Dye Other: See Comments hallucinations SOCIAL HISTORY[1] ROS: See HPI PE: BP 104/60 Pulse 76 Temp (Src) 97.7 (Left Tympanic) Resp 12 Wt 180 lb (81.6kg) LMP 01/05/2025 Gen: AANDOX3, NAD, non-toxic appearing HEENT: PERRLA, EOMs intact b/l, nares without drainage, pharynx without erythema, exudate, lesions, or drainage. Uvula midline. Neck: No LAD, no thyromegaly, no meningismus. + cervical spine muscle tension and trapezius tension CV: RRR, no murmur Lungs: CTA b/l, no wheezing Skin: No rashes, lesions, or wounds on exposed skin. Central obesity Non focal neurologic examination Normal gait Normal speech ASSESSMENT/PLAN: 1. Class 1 obesity with body mass index (BMI) of 32.0 to 32.9 in adult, unspecified obesity type, unspecified whether serious comorbidity present - ICD9: 278.00, V85.32, ICD10: E66.811, Z68.32 (primary diagnosis) Stable - Add Topiramate Continue exercise and healthy diet - TOPIRAMATE 25 MG TABLET 2. Chronic nonintractable headache, unspecified headache type - ICD9: 784.0, ICD10: R51.9, G89.29 Referral to PHYSICAL THERAPY Start on vitamin combination- vit d, magnesium, riboflavin - CONSULT TO PHYSICAL THERAPY 3. Situational anxiety - ICD9: 300.09, ICD10: F41.8 stable Frantz Benson DO Return if no improvement. Follow up with Frantz Benson DO. To ER if develops chest pain, shortness of breath. Discussed risks, benefits, alternatives, and potential side effects of medications. Patient/Guardian expressed understanding and agreed with the plan. See patient instructions. Frantz Benson DO [address] [place] [address] [1] Social History Tobacco Use Smoking status: Never Smokeless tobacco: Never Vaping Use Vaping status: Never Used Substance Use Topics Alcohol use: Not Currently Drug use: No [facility] 01-20-2025 History of Present illness Narrative CC: Debra March is a 39 year old female who presents to the office for follow up HPI: Obesity, weight at 180 lbs. Previously at 183-184 lbs about 3 months ago. Knows need for weight loss. She is considering Invitro/Reproductive endocrine treatment She was tried on medication Metformin - stopped this per patient because she felt it caused hair loss and headache She was then tried on Phentermine- stopped this per patient because she felt it caused heart rate increase She is interested in losing 10-20 lbs before attempts at Less stress in her life now that her family is living with her father and saving money to buy another home in future. + chronic headaches, unsure trigger. No new vision changes, no fevers or chills. No hearing changes. Not worse DURAN of life. 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 ubrogepant (UBRELVY) 100 mg tablet Take 1 tablet by mouth as needed at onset of migraine. May repeat dose at 2 hours if needed. Max 200 mg per 24 hours. No current facility-administered medications for this visit. ALLERGIES Allergen Reactions Amoxicillin Rash Ceftin [Cefuroxime * GI Upset Vomiting and diarrhea Ilosone Rash Naldecon Other: See Comments Penicillin Rash Phenylephrine Other: See Comments hallucinations Wumovcgasnn-Ao-Kuwd* Other: See Comments hallucinations Pseudoephedrine Other: See Comments hallucinations Red Dye Other: See Comments hallucinations SOCIAL HISTORY[1] ROS: See HPI PE: BP 104/60 Pulse 76 Temp (Src) 97.7 (Left Tympanic) Resp 12 Wt 180 lb (81.6kg) LMP 01/05/2025 Gen: A&OX3, NAD, non-toxic appearing HEENT: PERRLA, EOMs intact b/l, nares without drainage, pharynx without erythema, exudate, lesions, or drainage. Uvula midline. Neck: No LAD, no thyromegaly, no meningismus. + cervical spine muscle tension and trapezius tension CV: RRR, no murmur Lungs: CTA b/l, no wheezing Skin: No rashes, lesions, or wounds on exposed skin. Central obesity Non focal neurologic examination Normal gait Normal speech ASSESSMENT/PLAN: 1. Class 1 obesity with body mass index (BMI) of 32.0 to 32.9 in adult, unspecified obesity type, unspecified whether serious comorbidity present - ICD9: 278.00, V85.32, ICD10: E66.811, Z68.32 (primary diagnosis) Stable - Add Topiramate Continue exercise and healthy diet - TOPIRAMATE 25 MG TABLET 2. Chronic nonintractable headache, unspecified headache type - ICD9: 784.0, ICD10: R51.9, G89.29 Referral to PHYSICAL THERAPY Start on vitamin combination- vit d, magnesium, riboflavin - CONSULT TO PHYSICAL THERAPY 3. Situational anxiety - ICD9: 300.09, ICD10: F41.8 stable Frantz Benson DO Return if no improvement. Follow up with Frantz Benson DO. To ER if develops chest pain, shortness of breath. Discussed risks, benefits, alternatives, and potential side effects of medications. Patient/Guardian expressed understanding and agreed with the plan. See patient instructions. Frantz Benson DO [address] [place] [address] [1] Social History Tobacco Use Smoking status: Never Smokeless tobacco: Never Vaping Use Vaping status: Never Used Substance Use Topics Alcohol use: Not Currently Drug use: No documented in this encounter [facility] 01-16-2025 Telephone encounter Note Mychart message sent to patient today regarding questions on embryo DNA being sent to [facility]. Sofy Dodson RN January 16, 2025 2:18 PM [facility] 01-16-2025 Miscellaneous Notes Mychart message sent to patient today regarding questions on embryo DNA being sent to [facility]. Sofy Dodson RN January 16, 2025 2:18 PM documented in this encounter [facility] 01-16-2025 Telephone encounter Note Consent for thaw and biopsy of frozen embryos sent to patient via communications tab/letters. Sofy Dodson RN January 16, 2025 10:46 AM [facility] 01-16-2025 Miscellaneous Notes Consent for thaw and biopsy of frozen embryos sent to patient via communications tab/letters. Sofy Dodson RN January 16, 2025 10:46 AM documented in this encounter [facility] 01-15-2025 History of Present illness Narrative Debra March is a 39 year old here for SIS. Referred by: Farideh Perez [facility] [address] Chief Complaint: Encounter for fertility testing Endometrial Biopsy: No Ultrasound: Yes Hormonal therapy: No. LMP: Patient's last menstrual period was 01/05/2025 (exact date). Cycles: PERIOD REGULARITY: regular q 28-30 days Contraception: none HCG: negative UNIVERSAL PROTOCOL / SAFETY CHECKLIST Procedure to be Performed: SIS Sign In: A Moment of CARE was completed. Appropriate PPE (Personal Protective Equipment) worn by all providers involved with the procedure. Special equipment utilized . Patient/Surrogate Stated/Verified: Patient name, Date of , Relevant allergies, and The intended procedure Time Out: Relevant labs, photos, and/or imaging studies have been reviewed. Intended patient and procedure match the source document(s) (e.g. consent, H&P, associated studies [imaging, pathology]) match the intended patient and procedure. Consent obtained and matches the intended procedure. Yes. Correct side/site is not applicable. Medications required for this procedure are not applicable. Fire risk assessed and is not applicable. Implants: are not applicable. Sign Out: Specimens not collected. All instruments, equipment, possible retained foreign bodies are accounted for. Yes. The post-procedure plan of care has been communicated to the patient or surrogate. PROCEDURE: SIS EXTERNAL GENITALIA: Normal in appearance without lesions VAGINA: Normal in appearance without lesions Speculum placed into the vagina with excellent visualization of the cervix. Cervix cleaned with Hibiclens. SIS catheter inserted into the uterus without difficulty. Speculum removed and 10mL sterile saline injected into the uterine cavity under ultrasound guidance. Procedure Summary: Patient tolerated procedure well. See ViewPoint for procedure results. FYI: DR. Perez and DR. Lakeshia Abad PA-C documented in this encounter [facility] 01-15-2025 Note HNO ID: [id number] Author: TANJA ABAD PA-C Service: ? Author Type: Physician Sensitizer Type: Progress Notes Filed: 01/23/2025 17:20 Note Text: Debra March is a 39 year old here for SIS. Referred by: Farideh Perez [address] [facility] [address] Chief Complaint: Encounter for fertility testing Endometrial Biopsy: No Ultrasound: Yes Hormonal therapy: No. LMP: Patient's last menstrual period was 01/05/2025 (exact date). Cycles: PERIOD REGULARITY: regular q 28-30 days Contraception: none HCG: negative UNIVERSAL PROTOCOL / SAFETY CHECKLIST Procedure to be Performed: SIS Sign In: A Moment of CARE was completed. Appropriate PPE (Personal Protective Equipment) worn by all providers involved with the procedure. Special equipment utilized . Patient/Surrogate Stated/Verified: Patient name, Date of , Relevant allergies, and The intended procedure Time Out: Relevant labs, photos, and/or imaging studies have been reviewed. Intended patient and procedure match the source document(s) (e.g. consent, HANDP, associated studies [imaging, pathology]) match the intended patient and procedure. Consent obtained and matches the intended procedure. Yes. Correct side/site is not applicable. Medications required for this procedure are not applicable. Fire risk assessed and is not applicable. Implants: are not applicable. Sign Out: Specimens not collected. All instruments, equipment, possible retained foreign bodies are accounted for. Yes. The post-procedure plan of care has been communicated to the patient or surrogate. PROCEDURE: SIS EXTERNAL GENITALIA: Normal in appearance without lesions VAGINA: Normal in appearance without lesions Speculum placed into the vagina with excellent visualization of the cervix. Cervix cleaned with Hibiclens. SIS catheter inserted into the uterus without difficulty. Speculum removed and 10mL sterile saline injected into the uterine cavity under ultrasound guidance. Procedure Summary: Patient tolerated procedure well. See ViewPoint for procedure results. FYI: DR. Perez and DR. Lakeshia Abad PA-C [facility] 01-12-2025 Telephone encounter Note Called patient. Reviewed [facility] 01-12-2025 Miscellaneous Notes Called patient. Reviewed documented in this encounter [facility] 01-09-2025 Plan of care note Assessment- IVF for genetic testing Plan- PGT-M results are still pending. Will get her SIS done but wants to delay the FET till March. Given her factor Leiden 5 mutation will proceed with a natural FET using hcg trigger at mid cycle and prog supp in the luteal phase. I spent a total of 40 minutes on the date of the service which included preparing to see the patient, [id number] patient care, completing clinical documentation, and counseling and educating the patient/family/caregiver. Melinda Guidry MD ALICE Frozen Embryo Transfer Treatment Plan: Number of embryos: one normal non affected, waiting for the PGTM resutls Uterine cavity testing: on 01/15/2025 no yet done Protocol: Natural Type of progesterone: prog supp 20 mg bid per vagina OK for OCPs to delay cycle start if needed: No Melinda Guidry. 01/09/2025 [facility] 01-09-2025 Miscellaneous Notes Assessment- IVF for genetic testing Plan- PGT-M results are still pending. Will get her SIS done but wants to delay the FET till March. Given her factor Leiden 5 mutation will proceed with a natural FET using hcg trigger at mid cycle and prog supp in the luteal phase. I spent a total of 40 minutes on the date of the service which included preparing to see the patient, [id number] patient care, completing clinical documentation, and counseling and educating the patient/family/caregiver. MD ALICE [place] Frozen Embryo Transfer Treatment Plan: Number of embryos: one normal non affected, waiting for the PGTM resutls Uterine cavity testing: on 01/15/2025 no yet done Protocol: Natural Type of progesterone: prog supp 20 mg bid per vagina OK for OCPs to delay cycle start if needed: No Melinda Guidry. 01/09/2025 documented in this encounter [facility] 01-09-2025 History of Present illness Narrative Images from the original note were not included. REPRODUCTIVE ENDOCRINOLOGY AND INFERTILITY NEW PATIENT CLINIC NOTE SERVICE DATE: 01/09/2025 SERVICE TIME: 10:02 AM NAME: Debra March Chris pt her for post retrieval discussion. HISTORY OF PRESENT ILLNESS Debra March is a 39 year old female to discuss steps for embryo transfer. Has sis scheduled for the 01/15/25. States her ob places her on lovinox when she becomes . Has never had a blood clot. 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 IVF#1 11/25/2024- 30 oocytes, 26 mature, 14 embryos (3 normal, 2 MOS, 8 ABN, 1 No Result) Last visit with Dr. Perez 08/15/24: Debra March is a 39 year old female with Debra is a 39 year old female with infertility and fibroids. For the past several months, her sons underwent evaluation for developmental delay and Autism. Her oldest son has autism and another son has a genetic condition. One son missing a chromosome and another son has chromosome duplications. She was told that the best way to have a baby is to have IVF and PGT. The genetic records is not available. She would like to freeze her eggs and hope to use the eggs in 6-12 months. Of note, she wa told by her ob when she was much younger that she should not on ocp because her mother has varicose vein and ?blood clots. OB History Obstetric History T3 L3 SAB1 IAB0 Ectopic0 Multiple0 Live Births3 10/2015 - 01/09/2019 - ? 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 Menstrual cycle pattern: Regular periods (25-34 days in length) Cycle length (days): 28-31 Days of bleedin-5 OPK use: Yes, able to detect Dysmenorrhea: Rarely Dyspareunia: No STI history: None Last Pap Smear Date: 02/19/24 Last pap outcome: Normal History of abnormal PAP: No, all prior PAP smears have been normal Procedure for abnormal pap smear: None Fertility Evaluations and Treatments: Eval Checklist Results Date Comments HSG Hysteroscopy Laparoscopy OPK (Ovulation Predictor Kit) Ovarian [place] Saline Ultrasound Semen Analysis Ultrasound Other (See comments) LABS/IMAGING: 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 may sometimes experience a short period of breathing paralysis following anesthesia (such as succinylcholine or mivacurium) Factor 5 Leiden mutation, heterozygous (HCC) Genetic disorder (HCC) Lumbosacral radiculopathy at L5 08/19/2021 PAST SURGICAL HISTORY Procedure Laterality Date DELIVERY ONLY , low transverse x 3 11/02/15,01/09/19, 11/25/20 TONSILLECTOMY PRIMARY/SECONDARY <AGE 12 Tonsillectomy FAMILY HISTORY Problem Relation Age of Onset Cancer Mother 55 multiple myeloma Hyperlipidemia Father Diabetes Father borderline Hyperlipidemia Brother Breast Cancer Maternal Grandmother Diabetes Maternal Grandmother Heart Maternal Grandmother Heart Maternal Grandfather Cancer Paternal Grandmother Brain Heart Paternal Grandfather Heart Attack Paternal Grandfather No Known Problems Daughter Ovarian cancer No Family History SOCIAL HISTORY[1] Current Outpatient Medications Medication Sig ubrogepant (UBRELVY) 100 mg tablet Take 1 tablet by mouth as needed at onset of migraine. May repeat dose at 2 hours if needed. Max 200 mg per 24 hours. No current facility-administered medications for this visit. Allergies As of Date: 01/09/2025 Allergen Noted Reaction AMOXICILLIN 12/18/2014 Rash CEFTIN [CEFUROXIME AXETIL] 12/18/2014 GI Upset ILOSONE 12/18/2014 Rash NALDECON 03/30/2021 Other: See Comments PENICILLIN 12/18/2014 Rash PHENYLEPHRINE 03/30/2021 Other: See Comments [id number] 03/30/2021 Other: See Comments PSEUDOEPHEDRINE 03/30/2021 Other: See Comments RED DYE 03/30/2021 Other: See Comments Fully Assessed 01/09/2025 __ Partner History Both patient and partner give permission to discuss test results and medication information with the other. Partner gives permission to access EMR. Partner Information Partner's Name: Tara March Partner's : 04/15/1987 Partner's Partner's Ethnicity: Partner's Race: Medications: pantropazole. Additional Partner Assessment Findings: He has Hodgkin lymphoma 2 years ago s/p chemotherapy and immunotherapy. Last treatment was 07/12. Currently on remission. SA was done a few months ago. __ Assessment and Plan Assessment- IVF for genetic testing Plan- PGT-M results are still pending. Will get her SIS done but wants to delay the FET till March. Given her factor Leiden 5 mutation will proceed with a natural FET using hcg trigger at mid cycle and prog supp in the luteal phase. I spent a total of 40 minutes on the date of the service which included preparing to see the patient, [id number] patient care, completing clinical documentation, and counseling and educating the patient/family/caregiver. Melinda Guidry MD [facility] Frozen Embryo Transfer Treatment Plan: Number of embryos: one normal non affected, waiting for the PGTM resutls Uterine cavity testing: on 01/15/2025 no yet done Protocol: Natural Type of progesterone: prog supp 20 mg bid per vagina OK for OCPs to delay cycle start if needed: No Melinda Palacios MD 01/09/2025 [1] Social History Tobacco Use Smoking status: Never Smokeless tobacco: Never Vaping Use Vaping status: Never Used Substance Use Topics Alcohol use: Not Currently Drug use: No documented in this encounter [facility] 01-09-2025 Note HNO ID: [id number] Author: MELINDA GUIDRY MD Service: ? Author Type: Physician Type: Progress Notes Filed: 01/12/2025 09:00 Note Text: REPRODUCTIVE ENDOCRINOLOGY AND INFERTILITY NEW PATIENT CLINIC NOTE SERVICE DATE: 01/09/2025 SERVICE TIME: 10:02 AM NAME: Debra March Chris pt her for post retrieval discussion. HISTORY OF PRESENT ILLNESS Debra March is a 39 year old female to discuss steps for embryo transfer. Has sis scheduled for the 01/15/25. States her ob places her on lovinox when she becomes . Has never had a blood clot. 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 IVF#1 11/25/2024- 30 oocytes, 26 mature, 14 embryos (3 normal, 2 MOS, 8 ABN, 1 No Result) Last visit with Dr. Perez 08/15/24: Debra March is a 39 year old female with Debra is a 39 year old female with infertility and fibroids. For the past several months, her sons underwent evaluation for developmental delay and Autism. Her oldest son has autism and another son has a genetic condition. One son missing a chromosome and another son has chromosome duplications. She was told that the best way to have a baby is to have IVF and PGT. The genetic records is not available. She would like to freeze her eggs and hope to use the eggs in 6-12 months. Of note, she wa told by her ob when she was much younger that she should not on ocp because her mother has varicose vein and ?blood clots. OB History Obstetric History T3 L3 SAB1 IAB0 Ectopic0 Multiple0 Live Births3 10/2015 - 01/09/2019 - ? 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 Menstrual cycle pattern: Regular periods (25-34 days in length) Cycle length (days): 28-31 Days of bleedin-5 OPK use: Yes, able to detect Dysmenorrhea: Rarely Dyspareunia: No STI history: None Last Pap Smear Date: 02/19/24 Last pap outcome: Normal History of abnormal PAP: No, all prior PAP smears have been normal Procedure for abnormal pap smear: None Fertility Evaluations and Treatments: Eval Checklist Results Date Comments HSG Hysteroscopy Laparoscopy OPK (Ovulation Predictor Kit) Ovarian [place] Saline Ultrasound Semen Analysis Ultrasound Other (See comments) LABS/IMAGING: 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 may sometimes experience a short period of breathing paralysis following anesthesia (such as succinylcholine or mivacurium) Factor 5 Leiden mutation, heterozygous (HCC) Genetic disorder (HCC) Lumbosacral radiculopathy at L5 08/19/2021 PAST SURGICAL HISTORY Procedure Laterality Date DELIVERY ONLY , low transverse x 3 11/02/15,01/09/19, 11/25/20 TONSILLECTOMY PRIMARY/SECONDARY Tonsillectomy FAMILY HISTORY Problem Relation Age of Onset Cancer Mother 55 multiple myeloma Hyperlipidemia Father Diabetes Father borderline Hyperlipidemia Brother Breast Cancer Maternal Grandmother Diabetes Maternal Grandmother Heart Maternal Grandmother Heart Maternal Grandfather Cancer Paternal Grandmother Brain Heart Paternal Grandfather Heart Attack Paternal Grandfather No Known Problems Daughter Ovarian cancer No Family History SOCIAL HISTORY[1] Current Outpatient Medications Medication Sig ubrogepant (UBRELVY) 100 mg tablet Take 1 tablet by mouth as needed at onset of migraine. May repeat dose at 2 hours if needed. Max 200 mg per 24 hours. No current facility-administered medications for this visit. Allergies As of Date: 01/09/2025 Allergen Noted Reaction AMOXICILLIN 12/18/2014 Rash CEFTIN [CEFUROXIME AXETIL] 12/18/2014 GI Upset ILOSONE 12/18/2014 Rash NALDECON 03/30/2021 Other: See Comments PENICILLIN 12/18/2014 Rash PHENYLEPHRINE 03/30/2021 Other: See Comments [id number] 03/30/2021 Other: See Comments PSEUDOEPHEDRINE 03/30/2021 Other: See Comments RED DYE 03/30/2021 Other: See Comments Fully Assessed 01/09/2025 __ Partner History Both patient and partner give permission to discuss test results and medication information with the other. Partner gives permission to access EMR. Partner Information Partner's Name: Tara March Partner's : 04/15/1987 Partner's Partner's Ethnicity: Partner's Race: Medications: pantropazole. Additional Partner Assessment Findings: He has Hodgkin lymphoma 2 years ago s/p chemotherapy and immunotherapy. Last treatment was 07/12. Currently on remission. SA was done a few months ago. __ Assessment and Plan Assessment- IVF for genetic testing Plan- PG (more content not included)... [facility] 12-31-2024 Telephone encounter Note Forwarded to embryology. Mychart sent to patient notifying. Leola Dawn RN December 31, 2024 9:27 AM [facility] 12-31-2024 Miscellaneous Notes Forwarded to embryology. Mychart sent to patient notifying. Leola Dawn RN December 31, 2024 9:27 AM documented in this encounter [facility] 12-29-2024 Telephone encounter Note New reqs for special requests completed. Dr. Chris ramirez sign. Will discuss with Kiran to ensure they have everything needed. Leola Dawn RN December 29, 2024 8:33 AM [facility] 12-29-2024 Miscellaneous Notes New reqs for special requests completed. Dr. Chris ramirez sign. Will discuss with Kiran to ensure they have everything needed. Leola Dawn RN December 29, 2024 8:33 AM documented in this encounter [facility] 12-22-2024 Miscellaneous Notes Return call. No answer. Mychart sent. Email sent to Kiran asking them to call me to review what is needed for the patient. Leola Dawn RN December 22, 2024 11:08 AM pt is reaching out with questions about pgt and genetic testing, please contact patient documented in this encounter [facility] 12-22-2024 Telephone encounter Note Return call. No answer. Mychart sent. Email sent to Kiran asking them to call me to review what is needed for the patient. Leola Dawn RN December 22, 2024 11:08 AM [facility] 12-19-2024 Telephone encounter Note pt is reaching out with questions about pgt and genetic testing, please contact patient [facility] 12-12-2024 Telephone encounter Note Mychart sent to patient. Forward to system developer associate manager and Jackelyn Mcclelland for further assistance. Leola Dawn RN December 12, 2024 2:41 PM [facility] 12-12-2024 Miscellaneous Notes Mychart sent to patient. Forward to system developer associate manager and Jackelyn Mcclelland for further assistance. Leola Dawn RN December 12, 2024 2:41 PM documented in this encounter [facility] 12-12-2024 Telephone encounter Note Please place order for SIS. Explained to vanessa we needed to get SIS authorized before scheduling. Patient was not happy with my explanation or the wait involved. [facility] 12-12-[address] order for SIS. Explained to vanessa we needed to get SIS authorized before scheduling. Patient was not happy with my explanation or the wait involved. Attempted to call patient to discuss next steps per Dr. Perez. No answer. Ordered SIS and mychart sent to patient. Leola Dawn RN December 12, 2024 11:38 AM documented in this encounter [facility] 12-12-2024 Telephone encounter Note Attempted to call patient to discuss next steps per Dr. Perez. No answer. Ordered SIS and mychart sent to patient. Leola Dawn RN December 12, 2024 11:38 AM [facility] 12-05-2024 Telephone encounter Note Kiran req completed by this RN on Sunday 12/03. Dr. Perez signed today and it is now received by Kiran. Leola Dawn RN December 05, 2024 3:16 PM [facility] 12-05-2024 Miscellaneous Notes Kiran req completed by this RN on Sunday 12/03. Dr. Perez signed today and it is now received by Kiran. Leola Dawn RN December 05, 2024 3:16 PM [employer] is calling on behalf of pt... they are calling to request an order for PGT-A only (no PGTA-M) per the patients request documented in this encounter [facility] 12-05-2024 Telephone encounter Note [employer] is calling on behalf of pt... they are calling to request an order for PGT-A only (no PGTA-M) per the patients request [facility] 12-05-2024 Telephone encounter Note Ambulatory Pharmacy Prior Authorization Note Provider Intervention Required?: No - Pharmacy completed on your behalf. Was the PA documented within the ePA workqueue?: Yes Drug: UBRELVY View the status history of the prior authorization in the Auth Tab within Chart Review Additional Information: See Auth Tab under chart review for more details. For questions relating to this submission, please contact [facility] at [phone] [facility] Work Phone: 12-05-2024 Miscellaneous Notes Ambulatory Pharmacy Prior Authorization Note Provider Intervention Required?: No - Pharmacy completed on your behalf. Was the PA documented within the [employer] workqueue?: Yes Drug: UBRELVY View the status history of the prior authorization in the Auth Tab within Chart Review Additional Information: See Auth Tab under chart review for more details. For questions relating to this submission, please contact [facility] at [phone] documented in this encounter [facility] 12-01-2024 Note HNO ID: [id number] Author: GABE SOOD [employer] Tech Service: ? Author Type: Technologist Type: Progress Notes Filed: 12/01/2024 13:32 Note Text: IVF freeze all cycle. PGT-A Gabe Sood [employer] Tech December 01, 2024 1:30 PM [facility] 12-01-2024 History of Present illness Narrative IVF freeze all cycle. PGT-A Gabe Sood [employer] Tech December 01, 2024 1:30 PM documented in this encounter [facility] 12-01-2024 Telephone encounter Note Return call regarding mychart. Patient is done with IVF. She will transfer if she can - but not for several months. Advised patient that Adipex is safe to take at this time. Patient also has questions about the PGTA/M testing. Patient will send another Mychart in and I will route to embryology lab. Leola Dawn RN December 01, 2024 9:16 AM [facility] 12-01-2024 Miscellaneous Notes Return call regarding mychart. Patient is done with IVF. She will transfer if she can - but not for several months. Advised patient that Adipex is safe to take at this time. Patient also has questions about the PGTA/M testing. Patient will send another Mychart in and I will route to embryology lab. Leola Dawn RN December 01, 2024 9:16 AM documented in this encounter [facility] 11-25-2024 Note HNO ID: [id number] Author: GABE SOOD [employer] Tech Service: ? Author Type: Technologist Type: Progress Notes Filed: 11/25/2024 13:31 Note Text: Retrieval procedure performed. Detailed notes can be found in the paper chart in the [facility]- LOGISTICS OPERATIONS MANAGER Office. GLENDA Hess [facility] 11-25-2024 History of Present illness Narrative Retrieval procedure performed. Detailed notes can be found in the paper chart in the [facility]- LOGISTICS OPERATIONS MANAGER Office. GLENDA Hess documented in this encounter [facility] 11-24-2024 Note HNO ID: [id number] Author: DELANEY JONES RN Service: ? Author Type: Registered Nurse Type: Progress Notes Filed: 11/24/2024 13:08 Note Text: Patient presents for post trigger labs, see flow sheet. Delaney Jones RN November 24, 2024 1:08 PM [facility] 11-24-2024 History of Present illness Narrative Patient presents for post trigger labs, see flow sheet. Delaney Jones RN November 24, 2024 1:08 PM documented in this encounter [facility] 11-24-2024 Telephone encounter Note Pt had an appt 10/17 with provider and was prescribed phentermine 37.5 mg. Pt reports tomorrow she is scheduled for embryo retrieval surgery. Pt is asking if it is ok for her to start phentermine after the retrieval. Pt reports she has not started medication yet. Pt reports she is not planning on implantation at this time. Please review and advise. Lety Rockwell LPN [facility] 11-24-2024 Miscellaneous Notes Pt had an appt 10/17 with provider and was prescribed phentermine 37.5 mg. Pt reports tomorrow she is scheduled for embryo retrieval surgery. Pt is asking if it is ok for her to start phentermine after the retrieval. Pt reports she has not started medication yet. Pt reports she is not planning on implantation at this time. Please review and advise. Lety Rockwell LPN documented in this encounter [facility] 11-23-2024 Note HNO ID: [id number] Author: ANTONELLA DIAZ RN Service: ? Author Type: Registered Nurse Type: Progress Notes Filed: 11/23/2024 12:54 Note Text: Plan given for trigger and retrieval. Post trigger labs in BATH location tomorrow 11/24. Antonella Diaz RN November 23, 2024 12:54 PM [facility] 11-23-2024 History of Present illness Narrative Plan given for trigger and retrieval. Post trigger labs in BATH location tomorrow 11/24. Antonella Diaz RN November 23, 2024 12:54 PM The patient is here today for follicular ultrasound and blood work. The patient reports no problems or complaints. Ultrasound and blood will be reviewed by the physician, the flow sheet will be updated and instructions will be communicated to the patient. Patient did not stay to talk with nursing. Darius Godfrey RN documented in this encounter [facility] 11-23-2024 Note HNO ID: [id number] Author: DARIUS GODFREY RN Service: ? Author Type: Registered Nurse Type: Progress Notes Filed: 11/23/2024 11:00 Note Text: The patient is here today for follicular ultrasound and blood work. The patient reports no problems or complaints. Ultrasound and blood will be reviewed by the physician, the flow sheet will be updated and instructions will be communicated to the patient. Patient did not stay to talk with nursing. Darius Godfrey RN [facility] 11-22-2024 Note HNO ID: [id number] Author: ANTONELLA DIAZ RN Service: ? Author Type: Registered Nurse Type: Progress Notes Filed: 11/22/2024 13:57 Note Text: Consents uploaded to scanned docs. Pt clarifying she does not want any biological property (viable or non viable) used for research or teaching. Antonella Diaz RN November 22, 2024 1:19 PM [facility] 11-22-2024 History of Present illness Narrative Consents uploaded to scanned docs. Pt clarifying she does not want any biological property (viable or non viable) used for research or teaching. Antonella Diaz RN November 22, 2024 1:19 PM The patient is here today for follicular ultrasound and blood work. The patient reports no problems or complaints. Ultrasound and blood will be reviewed by the physician, the flow sheet will be updated and instructions will be communicated to the patient. Patient stayed to talk with nursing. Seen by Antonella Godfrey RN documented in this encounter [facility] 11-22-2024 Note HNO ID: [id number] Author: DARIUS GODFREY RN Service: ? Author Type: Registered Nurse Type: Progress Notes Filed: 11/22/2024 11:26 Note Text: The patient is here today for follicular ultrasound and blood work. The patient reports no problems or complaints. Ultrasound and blood will be reviewed by the physician, the flow sheet will be updated and instructions will be communicated to the patient. Patient stayed to talk with nursing. Seen by Antonella Godfrey RN [facility] 11-19-2024 Note HNO ID: [id number] Author: DELANEY JONES RN Service: ? Author Type: Registered Nurse Type: Progress Notes Filed: 11/19/2024 17:46 Note Text: RN called patient, name and verified. Plan given for IVF cycle per physician, see flowsheet for details. [employer] message sent. Medications reviewed and verified, instructions given. Patient denies any questions or concerns. Message sent to scheduling pool for next appt. Delaney Jones RN November 19, 2024 12:30 PM [facility] 11-19-2024 History of Present illness Narrative RN called patient, name and verified. Plan given for IVF cycle per physician, see flowsheet for details. [employer] message sent. Medications reviewed and verified, instructions given. Patient denies any questions or concerns. Message sent to scheduling pool for next appt. Delaney Jones RN November 19, 2024 12:30 PM documented in this encounter [facility] 11-18-2024 History and physical note HISTORY AND PHYSICAL EXAMINATION GYNECOLOGY SERVICE DATE: 11/18/2024 SERVICE TIME: 9:48 AM PRIMARY CARE PHYSICIAN: Frantz Benson DO CHIEF COMPLAINT/HISTORY OF PRESENT ILLNESS: Ms. March is a 39 year old female referred to me for preoperative evaluation. My final recommendations will be communicated back to the requesting physician/surgeon by the way of the shared medical record. Referring Surgeon: Dr. Perez Date of Surgery: TBD Planned Surgery/Procedure: ivf egg retrieval Indication for Planned Surgery / Procedure: ivf cycle Refer to Assessment section for details of any comorbidities. Patient is Able to Perform the Following Physical Activity: Do heavy work around the house, such as scrubbing floors, lifting or moving heavy furniture (8.00 METs) Run a short distance (8.00 METs) Patient denies any chest pain or undue shortness of breath with the above physical activity. Patient's functional class is I based on self-reported physical activity. Significant Anesthesia Considerations: Patient or family history of pseudocholinesterase deficiency and mental status changes after her . 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 may sometimes experience a short period of breathing paralysis following anesthesia (such as succinylcholine or mivacurium) Genetic disorder (HCC) Lumbosacral radiculopathy at L5 08/19/2021 PAST SURGICAL HISTORY Procedure Laterality Date DELIVERY ONLY , low transverse x 3 11/02/15,01/09/19, 11/25/20 TONSILLECTOMY PRIMARY/SECONDARY Tonsillectomy FAMILY HISTORY Problem Relation Age of Onset Cancer Mother 55 multiple myeloma Hyperlipidemia Father Diabetes Father borderline Hyperlipidemia Brother Breast Cancer Maternal Grandmother Diabetes Maternal Grandmother Heart Maternal Grandmother Heart Maternal Grandfather Cancer Paternal Grandmother Brain Heart Paternal Grandfather Heart Attack Paternal Grandfather No Known Problems Daughter Ovarian cancer No Family History SOCIAL HISTORY Social History Tobacco Use Smoking status: Never Smokeless tobacco: Never Vaping Use Vaping status: Never Used Substance Use Topics Alcohol use: Not Currently Drug use: No MEDICATIONS/ALLERGIES Current Outpatient Medications Medication Sig Dispense Refill Ganirelix Acetate 250 mcg/0.5 mL Inject 1 syringe daily subcutaneous before 8am. Inject same time each day 7 each 1 Follitropin Beta (FOLLISTIM AQ) 300 unit/0.36 mL Inject 250 Units subcutaneously once daily. 6 each 1 leuprolide (LUPRON) 1 mg/0.2 mL Inject 80 units subcutaneous once as directed for Lupron trigger 1 kit 1 chorionic gonadotropin (PREGNYL) 10,000 unit solr 10,000 Units as directed for 1 dose. Mix vials as directed per nursing in office. Administer subcutaneous. 1 each 1 Needle, Disp, 27 G (BD DISPOSABLE NEEDLES) 27 gauge x 1/2" ndle To be used to inject HCG trigger 1 each 1 Syringe with Needle, Disp, (SYRINGE 3CC/20GX1") 3 mL 20 gauge x 1" To be used to mix, draw up and inject HCG trigger 1 each 1 ubrogepant (UBRELVY) 100 mg tablet Take 1 tablet by mouth as needed at onset of migraine. May repeat dose at 2 hours if needed. Max 200 mg per 24 hours. 16 tablet 5 No current facility-administered medications for this visit. ALLERGIES Allergen Reactions Amoxicillin Rash Ceftin [Cefuroxime * GI Upset Vomiting and diarrhea Ilosone Rash Naldecon Other: See Comments Penicillin Rash Phenylephrine Other: See Comments hallucinations Vwsmmkwyaxd-Zl-Lohs* Other: See Comments hallucinations Pseudoephedrine Other: See Comments hallucinations Red Dye Other: See Comments hallucinations REVIEW OF SYSTEMS General: No weight loss, malaise or fevers. Neuro: No history of TIA's, stroke, PERIODICALS CLERK tumor, impaired sensorium, hemiplegia, paraplegia or quadriplegia. migraines Respiratory: No history of current cough or dyspnea, or pneumonia in the past 6 weeks. No history of respiratory/pulmonary symptoms or problems. Cardiovascular: No history of HTN requiring medication, no history of angina, CHF, [place], cardiac surgery or stents. Denies rest pain, gangrene or revascularization/amputation for PVD. No history of cardiovascular symptoms or problems. GI: No history of GI symptoms or problems. No history of esophageal varices, recent ascites, or ETOH greater than 2 drinks per day. : No history of UTI in past 6 weeks. No history of renal failure. Not currently on or requiring dialysis. No history of symptoms or problems. [address] MAN: doing ivf Endocrine: No history of diabetes. Has not taken steroids within the past 30 days. No history of endocrinological symptoms or problems. Hematology: Factor V Leiden Oncology: No history of CA metastasis, chemo within 30 days, or radiotherapy within 90 days. No history of oncological symptoms or problems. Psych: Anxiety Skin: Negative for lesions, rash, and itching. PHYSICAL EXAM VITALS: BP 113/74 Pulse 99 Ht 5' 2" (1.58m) Wt 181 lb 14.1 oz (82.5kg) SpO2 98% LMP 08/19/2024 BMI 33.26 kg/(m^2). General: Alert and oriented Skin: Normal color, no rash, no lesions. HEENT: EOM, pupils equal, round. Cardiovascular: Normal S1 & S2, no rubs, murmurs or gallops. No JVD. Pulse regular. Lungs: Normal breath sounds, no wheezes or crackles. Abdomen: Soft, non-tender, no rigidity. Extremities: No deformity, no edema or tenderness, no joint swelling or clubbing. Neurological: Normal cognition and motor skills. Pulses: Radial pulses normal +2. ASSESSMENT Ms. March is a 39 year old female referred to me for preoperative evaluation. 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 Diagnostic tests reviewed for today's visit: Most recent labs blood pressure PLAN/RECOMMENDATIONS Patient is optimally prepared for surgery. Patient Instructions: per IVF team I have discussed the above recommendations with the patient in detail, in corinna and lay terms, and provided a written summary of instructions as needed. We have discussed that no surgery is without risk, but that the goal of preoperative assessment is to optimize that risk, and that was clearly understood by the patient. I have given ample opportunity for the patient to ask questions, and answered all questions to their stated satisfaction. SIGNATURE: Duncan Guadalupe APRN.CNP PATIENT NAME: Debra March DATE: November 18, 2024 TIME: 9:48 AM [facility] 11-18-2024 History and physical note HISTORY AND PHYSICAL EXAMINATION GYNECOLOGY SERVICE DATE: 11/18/2024 SERVICE TIME: 9:48 AM PRIMARY CARE PHYSICIAN: Frantz Benson DO CHIEF COMPLAINT/HISTORY OF PRESENT ILLNESS: Ms. March is a 39 year old female referred to ri for preoperative evaluation. My final recommendations will be communicated back to the requesting physician/surgeon by the way of the shared medical record. Referring Surgeon: Dr. Perez Date of Surgery: TBD Planned Surgery/Procedure: ivf egg retrieval Indication for Planned Surgery / Procedure: ivf cycle Refer to Assessment section for details of any comorbidities. Patient is Able to Perform the Following Physical Activity: Do heavy work around the house, such as scrubbing floors, lifting or moving heavy furniture (8.00 METs) Run a short distance (8.00 METs) Patient denies any chest pain or undue shortness of breath with the above physical activity. Patient's functional class is I based on self-reported physical activity. Significant Anesthesia Considerations: Patient or family history of pseudocholinesterase deficiency and mental status changes after her . 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 may sometimes experience a short period of breathing paralysis following anesthesia (such as succinylcholine or mivacurium) Genetic disorder (HCC) Lumbosacral radiculopathy at L5 08/19/2021 PAST SURGICAL HISTORY Procedure Laterality Date DELIVERY ONLY , low transverse x 3 11/02/15,01/09/19, 11/25/20 TONSILLECTOMY PRIMARY/SECONDARY <AGE 12 Tonsillectomy FAMILY HISTORY Problem Relation Age of Onset Cancer Mother 55 multiple myeloma Hyperlipidemia Father Diabetes Father borderline Hyperlipidemia Brother Breast Cancer Maternal Grandmother Diabetes Maternal Grandmother Heart Maternal Grandmother Heart Maternal Grandfather Cancer Paternal Grandmother Brain Heart Paternal Grandfather Heart Attack Paternal Grandfather No Known Problems Daughter Ovarian cancer No Family History SOCIAL HISTORY Social History Tobacco Use Smoking status: Never Smokeless tobacco: Never Vaping Use Vaping status: Never Used Substance Use Topics Alcohol use: Not Currently Drug use: No MEDICATIONS/ALLERGIES Current Outpatient Medications Medication Sig Dispense Refill Ganirelix Acetate 250 mcg/0.5 mL Inject 1 syringe daily subcutaneous before 8am. Inject same time each day 7 each 1 Follitropin Beta (FOLLISTIM AQ) 300 unit/0.36 mL Inject 250 Units subcutaneously once daily. 6 each 1 leuprolide (LUPRON) 1 mg/0.2 mL Inject 80 units subcutaneous once as directed for Lupron trigger 1 kit 1 chorionic gonadotropin (PREGNYL) 10,000 unit solr 10,000 Units as directed for 1 dose. Mix vials as directed per nursing in office. Administer subcutaneous. 1 each 1 Needle, Disp, 27 G (BD DISPOSABLE NEEDLES) 27 gauge x 1/2" ndle To be used to inject HCG trigger 1 each 1 Syringe with Needle, Disp, (SYRINGE 3CC/20GX1") 3 mL 20 gauge x 1" To be used to mix, draw up and inject HCG trigger 1 each 1 ubrogepant (UBRELVY) 100 mg tablet Take 1 tablet by mouth as needed at onset of migraine. May repeat dose at 2 hours if needed. Max 200 mg per 24 hours. 16 tablet 5 No current facility-administered medications for this visit. ALLERGIES Allergen Reactions Amoxicillin Rash Ceftin [Cefuroxime * GI Upset Vomiting and diarrhea Ilosone Rash Naldecon Other: See Comments Penicillin Rash Phenylephrine Other: See Comments hallucinations Plfxbcufviw-Ka-Joau* Other: See Comments hallucinations Pseudoephedrine Other: See Comments hallucinations Red Dye Other: See Comments hallucinations REVIEW OF SYSTEMS General: No weight loss, malaise or fevers. Neuro: No history of TIA's, stroke, PERIODICALS CLERK tumor, impaired sensorium, hemiplegia, paraplegia or quadriplegia. migraines Respiratory: No history of current cough or dyspnea, or pneumonia in the past 6 weeks. No history of respiratory/pulmonary symptoms or problems. Cardiovascular: No history of HTN requiring medication, no history of angina, CHF, [place], cardiac surgery or stents. Denies rest pain, gangrene or revascularization/amputation for PVD. No history of cardiovascular symptoms or problems. GI: No history of GI symptoms or problems. No history of esophageal varices, recent ascites, or ETOH greater than 2 drinks per day. : No history of UTI in past 6 weeks. No history of renal failure. Not currently on or requiring dialysis. No history of symptoms or problems. SKID ROAD MAN: doing ivf Endocrine: No history of diabetes. Has not taken steroids within the past 30 days. No history of endocrinological symptoms or problems. Hematology: Factor V Leiden Oncology: No history of CA metastasis, chemo within 30 days, or radiotherapy within 90 days. No history of oncological symptoms or problems. Psych: Anxiety Skin: Negative for lesions, rash, and itching. PHYSICAL EXAM VITALS: BP 113/74 Pulse 99 Ht 5' 2" (1.58m) Wt 181 lb 14.1 oz (82.5kg) SpO2 98% LMP 08/19/2024 BMI 33.26 kg/(m^2). General: Alert and oriented Skin: Normal color, no rash, no lesions. HEENT: EOM, pupils equal, round. Cardiovascular: Normal S1 & S2, no rubs, murmurs or gallops. No JVD. Pulse regular. Lungs: Normal breath sounds, no wheezes or crackles. Abdomen: Soft, non-tender, no rigidity. Extremities: No deformity, no edema or tenderness, no joint swelling or clubbing. Neurological: Normal cognition and motor skills. Pulses: Radial pulses normal +2. ASSESSMENT Ms. March is a 39 year old female referred to me for preoperative evaluation. 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 Diagnostic tests reviewed for today's visit: Most recent labs blood pressure PLAN/RECOMMENDATIONS Patient is optimally prepared for surgery. Patient Instructions: per IVF team I have discussed the above recommendations with the patient in detail, in corinna and lay terms, and provided a written summary of instructions as needed. We have discussed that no surgery is without risk, but that the goal of preoperative assessment is to optimize that risk, and that was clearly understood by the patient. I have given ample opportunity for the patient to ask questions, and answered all questions to their stated satisfaction. SIGNATURE: Duncan Guadalupe APRN.CNP PATIENT NAME: Debra March DATE: November 18, 2024 TIME: 9:48 AM documented in this encounter [facility] 11-15-2024 Note HNO ID: [id number] Author: LUCIANA ASHER MD Service: ? Author Type: Physician Type: Progress Notes Filed: 11/15/2024 14:30 Note Text: ALICE Attending Physician Note: Ultrasound and lab results reviewed. Based on review of ultrasound and lab results, medication dose and follow up date plans provided. See cycle flowsheet for dosing details. Luciana Asher MD, MBA [facility] 11-15-2024 History of Present illness Narrative ALICE Attending Physician Note: Ultrasound and lab results reviewed. Based on review of ultrasound and lab results, medication dose and follow up date plans provided. See cycle flowsheet for dosing details. Luciana Asher MD, MBA The patient is here today for follicular ultrasound and blood work. The patient reports no problems or complaints. Ultrasound and blood will be reviewed by the physician, the flow sheet will be updated and instructions will be communicated to the patient. Follistim and Ganirelix taught to patient. Discussed PGTM and will update [facility] order. Location: Visit type: H&P with Arianna Date: 11/18 @ 0920 Dusty Granado RN November 15, 2024 9:47 AM Unable to reach patient by phone, sent [employer] message with instructions. Location: [place] Visit type: monitoring, IVF us/e2 Date: Sunday @ 740 am Dusty Granado RN November 15, 2024 1:20 PM documented in this encounter [facility] 11-15-2024 Note HNO ID: [id number] Author: DUSTY GRANADO RN Service: ? Author Type: Registered Nurse Type: Progress Notes Filed: 11/15/2024 14:30 Note Text: The patient is here today for follicular ultrasound and blood work. The patient reports no problems or complaints. Ultrasound and blood will be reviewed by the physician, the flow sheet will be updated and instructions will be communicated to the patient. Follistim and Ganirelix taught to patient. Discussed PGTM and will update [facility] order. Location: Visit type: HANDP with Arianna Date: 11/18 @ 0920 Dusty Granado RN November 15, 2024 9:47 AM Unable to reach patient by phone, sent [email or web address] message with instructions. Location: [place] Visit type: monitoring, IVF us/e2 Date: Sunday @ 740 am Dusty Granado RN November 15, 2024 1:20 PM [facility] 11-14-2024 Miscellaneous Notes See telephone encounter 11/12. Leola Dawn RN November 14, 2024 11:26 AM documented in this encounter [facility] 11-14-2024 Telephone encounter Note See telephone encounter 11/12. Leola Dawn RN November 14, 2024 11:26 AM [facility] 11-14-2024 Telephone encounter Note See telephone encounter 11/12. Leola Dawn RN November 14, 2024 11:25 AM [facility] 11-14-2024 Miscellaneous Notes See telephone encounter 11/12. Leola Dawn RN November 14, 2024 11:25 AM Pt called back . Genetic testing. She added that on Sunday. Pt is waiting to start her process. Pt is asking to be called. documented in this encounter [facility] 11-14-2024 Telephone encounter Note Return call. Patient voices frustration with getting in contact with staff to set up IVF cycle. Responded with HEART and reviewed chart. PGT-M has been accepted from [facility]. Checklist otherwise complete, only needs to sign consents. Has ultrasounds ordered. Pended E2. Patient had recent CBC and Hemoglobin A1C completed. Patient called [facility], will get meds tomorrow by [address] Cabezas RN, patient can baseline tomorrow morning. Tomorrow will be cycle day 5. Explained to patient that if a dominant follicle has already been recruited, she may not be able to start this cycle. Patient verbalized understanding. Flowsheet updated, Saved on [employer], message sent to schedulers, [employer] sent to patient. Leola Dawn RN November 14, 2024 11:10 AM [facility] 11-14-2024 Miscellaneous Notes Return call. Patient voices frustration with getting in contact with staff to set up IVF cycle. Responded with HEART and reviewed chart. PGT-M has been accepted from [facility]. Checklist otherwise complete, only needs to sign consents. Has ultrasounds ordered. Pended E2. Patient had recent CBC and Hemoglobin A1C completed. Patient called [facility], will get meds tomorrow by [address] Cabezas RN, patient can baseline tomorrow morning. Tomorrow will be cycle day 5. Explained to patient that if a dominant follicle has already been recruited, she may not be able to start this cycle. Patient verbalized understanding. Flowsheet updated, Saved on [employer], message sent to schedulers, aldo sent to patient. Leola Dawn RN November 14, 2024 11:10 AM Pt is calling to see next steps for their IVF process... please reach out documented in this encounter [facility] 11-13-2024 Telephone encounter Note Pt called back . Genetic testing. She added that on Sunday. Pt is waiting to start her process. Pt is asking to be called. [facility] 11-12-2024 Telephone encounter Note Pt is calling to see next steps for their IVF process... please reach out [facility] 11-05-2024 Telephone encounter Note Pt. informed via My Chart. [facility] 11-05-2024 Miscellaneous Notes Pt. informed via My Chart. Please inform patient that her mammogram is normal/negative. She will need routine screening mammogram in 1 year. Thanks Frantz Benson DO' documented in this encounter [facility] 11-05-2024 Telephone encounter Note Please inform patient that her mammogram is normal/negative. She will need routine screening mammogram in 1 year. Thanks Frantz Benson DO' [facility] 10-31-2024 History of Present illness Narrative Radiology Service Progress Note PATIENT NAME: Debra March DATE OF SERVICE: October 31, 2024 TIME: 7:41 AM PATIENT IDENTITY VERIFICATION COMPLETED USING TWO (2) IDENTIFIERS: Name and Date of confirmed by patient verbally. FALL SCREENING: Has the patient had 2 falls in the last year or 1 fall with injury or currently using an Ambulatory Assistive Device (Walker, Cane, Wheelchair, Crutches, etc.)? No PATIENT GENDER DATA: Assigned female at . status: : No status: NO. PATIENT RELEVANT IMPLANT DATA REVIEWED: Not Applicable PATIENT PRESENTS WITH AN IMPLANTABLE OR ATTACHED LOG DATA TECHNICIAN: No RADIOLOGY DEPARTMENT: Mammography PERIPHERAL IV DATA: Not applicable SIGNED BY: ALMA ROSA Curtis) October 31, 2024 7:41 AM documented in this encounter [facility] 10-31-2024 Note HNO ID: [id number] Author: PILY VARGAS RT(R) Service: ? Author Type: Technologist Type: Progress Notes Filed: 10/31/2024 07:43 Note Text: Radiology Service Progress Note PATIENT NAME: Debra March DATE OF SERVICE: October 31, 2024 TIME: 7:41 AM PATIENT IDENTITY VERIFICATION COMPLETED USING TWO (2) IDENTIFIERS: Name and Date of confirmed by patient verbally. FALL SCREENING: Has the patient had 2 falls in the last year or 1 fall with injury or currently using an Ambulatory Assistive Device (Walker, Cane, Wheelchair, Crutches, etc.)? No PATIENT GENDER DATA: Assigned female at . status: : No status: NO. PATIENT RELEVANT IMPLANT DATA REVIEWED: Not Applicable PATIENT PRESENTS WITH AN IMPLANTABLE OR ATTACHED LOG DATA TECHNICIAN: No RADIOLOGY DEPARTMENT: Mammography PERIPHERAL IV DATA: Not applicable SIGNED BY: Pily Vargas RT(R) October 31, 2024 7:41 AM [facility] 10-22-2024 Note HNO ID: [id number] Author: EDER SYKES MD Service: ? Author Type: Physician Type: Progress Notes Filed: 10/22/2024 16:58 Note Text: I spoke to the patient regarding the email below. She is fine with testing only for the mutation she and her son has. Farideh Perez MD [facility] 10-22-2024 Note HNO ID: [id number] Author: DUSTY GRANADO RN Service: ? Author Type: Registered Nurse Type: Progress Notes Filed: 10/23/2024 09:44 Note Text: Received the following message from [employer] regarding PGT-M: Nicloe I am reviewing PGT-M referral for patient Debra March. The original order is for 2 PGT-M disorders (2p16.3 AND 22q11.2). 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 PGT-M tests are designed using linkage analysis, meaning shared genetic markers between the reproductive couple and their family member(s) are linked to the pathogenic variant as part of test design. 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 As such, developing a PGT-M test for this couple is not currently available at [facility]. Although PGT-M test development is not available for this couple based on the submitted records, if additional documentation is available, our team will be happy to review this case again. In addition, in the unlikely eventthat this couple has a second affected child, this would be indicative of germline mosaicism, and PGT-M test development may then be available. 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 PGT-M is feasible for the NRXN1/2p16.3 microdeletion, we will continue to process this PGT-M referral for this disorder. Please send us an amended order for NRXN1 gene/ 2p16.3 microdeletion + PGT-A. Warm Regards, Cherelle Cast, MS, [facility] Senior Laboratory Genetic Counselor [facility], [address] [place] [address] [email or web address]" Forwarding to Dr. Perez and Marek Nixon. Please see the message I received from [facility] and advise. Does patient need to meet with either of you to discuss these changes?" Dusty Granado RN October 22, 2024 9:14 AM New req filled out and awaiting JT signature. Dusty Granado RN October 23, 2024 9:44 AM [facility] 10-22-2024 History of Present illness Narrative Images from the original note were not included. Received the following message from [employer] regarding PGT-M: Nicole, I am reviewing PGT-M referral for patient Debra March. The original order is for 2 PGT-M disorders (2p16.3 & 22q11.2). 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 PGT-M tests are designed using linkage analysis, meaning shared genetic markers between the reproductive couple and their family member(s) are linked to the pathogenic variant as part of test design. 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 As such, developing a PGT-M test for this couple is not currently available at [facility]. Although PGT-M test development is not available for this couple based on the submitted records, if additional documentation is available, our team will be happy to review this case again. In addition, in the unlikely event that this couple has a second affected child, this would be indicative of germline mosaicism, and PGT-M test development may then be available. 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 PGT-M is feasible for the NRXN1/2p16.3 microdeletion, we will continue to process this PGT-M referral for this disorder. Please send us an amended order for NRXN1 gene/ 2p16.3 microdeletion + PGT-A. Tim Byrnes, Cherelle Cast, MS, [facility] Senior Laboratory Genetic Counselor [facility], [address] [place] [address] [email or web address]" Forwarding to Dr. Perez and Marek Nixon. Please see the message I received from [facility] and advise. Does patient need to meet with either of you to discuss these changes?" Dusty Granado RN October 22, 2024 9:14 AM documented in this encounter [facility] 10-17-2024 Telephone encounter Note Patient states she sent the information that Kiran needed. Pt states her doctor ordered her weight loss medication, Atapex. Pt states she may take it for a few months before starting Ivf. Pt states her doctor told her she would have to stop Atapex 30 days prior to retrieval. Marcy Woodruff RN October 17, 2024 11:33 AM [facility] 10-17-2024 Miscellaneous Notes Patient states she sent the information that [facility] needed. Pt states her doctor ordered her weight loss medication, Atapex. Pt states she may take it for a few months before starting Ivf. Pt states her doctor told her she would have to stop Atapex 30 days prior to retrieval. Marcy Woodruff RN October 17, 2024 11:33 AM Patient did not received e-mail from Mayi Zhaopin please call her she is asking if she can have information to reach out to Mayi Zhaopin, please call patient. documented in this encounter [facility] 10-17-2024 Instructions Fermin Field APRN.CNP - 10/17/2024 9:49 AM EDT Protein intake- at least 80-100g a day (increase if your activity increases) Water intake no less than 64 oz but should be no less than 80-100oz for weight loss Limit coffee/caffeine intake, watch creamers (use skin milk or black) Limit carbs to under 30-40g Intermittent fasting can be very helpful in weight loss, increase the window time as you go Increase activity, even just walking 30mins daily or at least 3-5 times per week. documented in this encounter [facility] 10-17-2024 History of Present illness Narrative This is a 39 year old female who presents today with: weight loss options HISTORY OF PRESENT ILLNESS: Debra is a 39-year-old female presenting for evaluation of adverse effects from metformin and to discuss alternative weight management options. Debra reports experiencing daily migraines and hair loss since starting metformin, which she has discontinued. She denies experiencing diarrhea while on metformin. She expresses interest in trying phentermine (Adipex) for weight management. We discussed topamax as well. She has a history of palpitations and chest pain triggered by sumatriptan use in 2020 but hasn't had any further issues. Debra has gained approximately 15 lbs over the past 6 months without significant changes in her diet, which includes frequent consumption of coffee with sugar, minimal water intake (approximately three 12-16 oz bottles per day), and regular dining out. She admits to not exercising and attributes some weight gain to stress as well. She reports good sleep quality and denies nocturnal eating, usually doesn't snack after she eats dinner. She is also considering IVF and inquires about the safety of phentermine use during the pre-conception period. She has three children and expresses a desire for a fourth. She denies any current issues with hypertension. All recent lab works have no concerns. Last Wt 10/17/24 : 83.2 kg (183 lb 6.4 oz) 33.54 kg/m2 Stable from [place] visit, up about 11# in almost a year. 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 may sometimes experience a short period of breathing paralysis following anesthesia (such as succinylcholine or mivacurium) Factor 5 Leiden mutation, heterozygous (HCC) Genetic disorder (HCC) Migraine headache Mixed hypercholesterolemia and hypertriglyceridemia 2015 Personal history of diseases of blood and blood-forming organs PAST SURGICAL HISTORY Procedure Laterality Date DELIVERY ONLY , low transverse x 3 11/02/15,01/09/19, 11/25/20 TONSILLECTOMY PRIMARY/SECONDARY <AGE 12 Tonsillectomy ALLERGIES Amoxicillin, Ceftin [Cefuroxime Axetil], Ilosone, Naldecon, Penicillin, Phenylephrine, Gfiphszahns-Xu-Bikrhqxvujmwy, Pseudoephedrine, and Red Dye MEDICATIONS Current Outpatient Medications Medication Sig ubrogepant (UBRELVY) 100 mg tablet Take 1 tablet by mouth as needed at onset of migraine. May repeat dose at 2 hours if needed. Max 200 mg per 24 hours. Phentermine HCl 37.5 mg capsule Take 1 capsule by mouth once daily for 90 days. metFORMIN (GLUCOPHAGE) 500 mg tablet Take 1 tablet by mouth daily with dinner. (Patient not taking: Reported on 10/17/2024) No current facility-administered medications for this visit. FAMILY HISTORY Problem Relation Age of Onset Hyperlipidemia Father Diabetes Father borderline Cancer Mother 55 multiple myeloma Hyperlipidemia Brother Heart Maternal Grandfather Breast Cancer Maternal Grandmother Diabetes Maternal Grandmother Heart Maternal Grandmother Heart Paternal Grandfather Heart Attack Paternal Grandfather Cancer Paternal Grandmother Brain Ovarian cancer No Family History Social History Tobacco Use Smoking status: Never Smokeless tobacco: Never Vaping Use Vaping status: Never Used Substance Use Topics Alcohol use: Not Currently Drug use: No REVIEW OF SYSTEMS Constitutional: (+) weight gain, (-) sleep disturbance Cardiovascular: (-) palpitations, (-) chest pain Gastrointestinal: (-) diarrhea Skin: (+) alopecia EXAM: BP 118/64 (BP Site: Left Arm, BP Position: Sitting, BP Cuff Size: Large Adult) Pulse (!) 55 Resp 14 Wt 83.2 kg (183 lb 6.4 oz) LMP 08/19/2024 (Approximate) SpO2 96% BMI 33.54 kg/m PHYSICAL EXAM: General Appearance: Well appearing, alert, in no acute distress, well-hydrated, overweight Lungs: Lungs clear to auscultation. No wheezing, rhonchi, rales.. Heart: RRR without murmur, gallop, or rubs. No ectopy. Extremities: No deformities, edema, skin discoloration, clubbing or cyanosis. Good capillary refill. . ASSESSMENT/PLAN 1. Class 1 obesity without serious comorbidity with body mass index (BMI) of 33.0 to 33.9 in adult, unspecified obesity type (E66.811) Patient experienced migraines and hair loss with metformin use. Interested in trying phentermine (Adipex) for weight management. No recent episodes of palpitations or chest pain. Recent lab work is normal. - Initiated phentermine (Adipex) with instructions to take in the morning to avoid insomnia. - Educated on potential side effects including dry mouth, mood changes, and palpitations. -Advised to discontinue if experiencing chest pain or palpitations. - Discussed dietary modifications: high protein (80-100 grams/day), low carbohydrate intake (= less than 30-40 grams/day), and increased water intake (=at least 64-84 ounces/day). - Recommended intermittent fasting and regular physical activity (30 minutes/day or at least 3-5 times/week). -5% weight loss = 174 lbs, 10% weight loss = 165 lbs . Short term goal would be 5% at least in 3 months. - Scheduled follow-up in 3 months to assess progress and determine continuation of phentermine. - Prescription sent to patient's pharmacy. Discussed treatment plan and patient voices understanding. Patient's questions answered appropriately. Medications and potential side effects were discussed and patient voices understanding. Return to the office as scheduled or as needed for worsening/no improvement. Fermin Field APRN.UTILITY WORKER FILM PROCESSING Recording using [employer] software for draft documentation of the visit was discussed with the patient/authorized business development representative; all questions welcomed and answered. Patient/authorized business development representative agreed to proceed documented in this encounter [facility] 10-17-2024 Note HNO ID: [id number] Author: FERMIN FIELD APRN.CRISTINA Service: ? Author Type: Nurse Practitioner Type: Progress Notes Filed: 10/17/2024 10:08 Note Text: This is a 39 year old female who presents today with: weight loss options HISTORY OF PRESENT ILLNESS: Debra is a 39-year-old female presenting for evaluation of adverse effects from metformin and to discuss alternative weight management options. Debra reports experiencing daily migraines and hair loss since starting metformin, which she has discontinued. She denies experiencing diarrhea while on metformin. She expresses interest in trying phentermine (Adipex) for weight management. We discussed topamax as well. She has a history of palpitations and chest pain triggered by sumatriptan use in 2020 but hasn't had any further issues. Debra has gained approximately 15 lbs over the past 6 months without significant changes in her diet, which includes frequent consumption of coffee with sugar, minimal water intake (approximately three 12-16 oz bottles per day), and regular dining out. She admits to not exercising and attributes some weight gain to stress as well. She reports good sleep quality and denies nocturnal eating, usually doesn't snack after she eats dinner. She is also considering IVF and inquires about the safety of phentermine use during the pre-conception period. She has three children and expresses a desire for a fourth. She denies any current issues with hypertension. All recent lab works have no concerns. Last Wt 10/17/24 : 83.2 kg (183 lb 6.4 oz) 33.54 kg/m2 Stable from August visit, up about 11# in almost a year. 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 may sometimes experience a short period of breathing paralysis following anesthesia (such as succinylcholine or mivacurium) Factor 5 Leiden mutation, heterozygous (HCC) Genetic disorder (HCC) Migraine headache Mixed hypercholesterolemia and hypertriglyceridemia 2016 Personal history of diseases of blood and blood-forming organs PAST SURGICAL HISTORY Procedure Laterality Date DELIVERY ONLY , low transverse x 3 11/02/15,01/09/19, 11/25/20 TONSILLECTOMY PRIMARY/SECONDARY Tonsillectomy ALLERGIES Amoxicillin, Ceftin [Cefuroxime Axetil], Ilosone, Naldecon, Penicillin, Phenylephrine, Xwtgowantil-Tj-Llpszlhbrxnej, Pseudoephedrine, and Red Dye MEDICATIONS Current Outpatient Medications Medication Sig ubrogepant (UBRELVY) 100 mg tablet Take 1 tablet by mouth as needed at onset of migraine. May repeat dose at 2 hours if needed. Max 200 mg per 24 hours. Phentermine HCl 37.5 mg capsule Take 1 capsule by mouth once daily for 90 days. metFORMIN (GLUCOPHAGE) 500 mg tablet Take 1 tablet by mouth daily with dinner. (Patient not taking: Reported on 10/17/2024) No current facility-administered medications for this visit. FAMILY HISTORY Problem Relation Age of Onset Hyperlipidemia Father Diabetes Father borderline Cancer Mother 55 multiple myeloma Hyperlipidemia Brother Heart Maternal Grandfather Breast Cancer Maternal Grandmother Diabetes Maternal Grandmother Heart Maternal Grandmother Heart Paternal Grandfather Heart Attack Paternal Grandfather Cancer Paternal Grandmother Brain Ovarian cancer No Family History Social History Tobacco Use Smoking status: Never Smokeless tobacco: Never Vaping Use Vaping status: Never Used Substance Use Topics Alcohol use: Not Currently Drug use: No REVIEW OF SYSTEMS Constitutional: (+) weight gain, (-) sleep disturbance Cardiovascular: (-) palpitations, (-) chest pain Gastrointestinal: (-) diarrhea Skin: (+) alopecia EXAM: BP 118/64 (BP Site: Left Arm, BP Position: Sitting, BP Cuff Size: Large Adult) Pulse (!) 55 Resp 14 Wt 83.2 kg (183 lb 6.4 oz) LMP 08/19/2024 (Approximate) SpO2 96% BMI 33.54 kg/m? PHYSICAL EXAM: General Appearance: Well appearing, alert, in no acute distress, well-hydrated, overweight Lungs: Lungs clear to auscultation. No wheezing, rhonchi, rales.. Heart: RRR without murmur, gallop, or rubs. No ectopy. Extremities: No deformities, edema, skin discoloration, clubbing or cyanosis. Good capillary refill. . ASSESSMENT/PLAN 1. Class 1 obesity without serious comorbidity with body mass index (BMI) of 33.0 to 33.9 in adult, unspecified obesity type (E66.811) Patient experienced migraines and hair loss with metformin use. Interested in trying phentermine (Adipex) for weight management. No recent episodes of palpitations or chest pain. Recent lab work is normal. - Initiated phentermine (Adipex) with instructions to take in the morning to avoid insomnia. - Educated on potential side effects including dry mouth, mood changes, and palpitations. -Advised to discontinue if experiencing chest pain or palpitations. - Discussed (more content not included)... [facility] 10-16-2024 Telephone encounter Note Spoke with pt gave information provided. Pt voices understanding.Was scheduled with fermin for follow up to restart adipex. [facility] 10-16-2024 Miscellaneous Notes Spoke with pt gave information provided. Pt voices understanding.Was scheduled with fermin for follow up to restart adipex. OK to discontinue metformin but she will need appointment to discuss/start on adipex. Thank you, Fariba Bahena APRN.UTILITY WORKER FILM PROCESSING Patient reports the Metformin that she recently started for weight loss makes her have a migraine with vomiting every time she takes the medication. States she did not taking the medication on certain days and she did not get a migraine or vomit. States "I know it's the medication that's causing it". Pt asking if Metformin can be discontinued and she can try Adipex? Please advise patient. Michelle Bello RN documented in this encounter [facility] 10-16-2024 Telephone encounter Note OK to discontinue metformin but she will need appointment to discuss/start on adipex. Thank you, Fariba Bahena APRN.UTILITY WORKER FILM PROCESSING [facility] Work Phone: 10-16-2024 Telephone encounter Note Patient reports the Metformin that she recently started for weight loss makes her have a migraine with vomiting every time she takes the medication. States she did not taking the medication on certain days and she did not get a migraine or vomit. States "I know it's the medication that's causing it". Pt asking if Metformin can be discontinued and she can try Adipex? Please advise patient. Michelle Bello RN [facility] 10-16-2024 Telephone encounter Note Patient did not received e-mail from Mayi Zhaopin please call her she is asking if she can have information to reach out to Mayi Zhaopin, please call patient. [facility] Work Phone: 10-02-2024 Telephone encounter Note MC reply sent to patient. Kiran form filled out. 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 Dusty Granado RN October 02, 2024 10:52 AM Kiran TRF signed and sent. Dusty Granado RN October 06, 2024 3:18 PM T [facility] 10-02-2024 Miscellaneous Notes MC reply sent to patient. Kiran form filled out. 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 Dusty Granado RN October 02, 2024 10:52 AM Kiran TRF signed and sent. Dusty Granado RN October 06, 2024 3:18 PM documented in this encounter [facility] 09-19-2024 History of Present illness Narrative Images from the original note were not included. REPRODUCTIVE GENETIC COUNSELING INITIAL VISIT Debra March : 1985 Above identifiers confirmed by Heidy Lundberg MS, [facility] Consultation requested by: Dr. Sykes, Marek Nixon, JAH Date of clinic visit: September 19, 2024 Clerk Checker offered/present: No - Swedish per EMR Debra March is a 39 year old female referred by Dr. Sykes for preconception genetic counseling to discuss her family medical history. She was accompanied to the visit today by her Tara March. Ms. March is seen via a virtual Distance Health visit today via [employer] platform per patient choice. The visit is conducted synchronously in real-time. The patient and her , Tara March are in attendance. I have communicated my name and active licensure. The patient's identity and physical location were verified at the time of this visit. Either the patient or their legal business development representative has been informed of the risks and benefits of -- and alternatives to -- treatment through a remote evaluation and consents to proceed with the evaluation remotely. PRESENTING PROBLEM: Ms. March is a 39 year old female referred for a preconception genetics visit. Specifically, her older son has a maternally inherited 2p16.3 microdeletion and has high functioning autism and speech delays. Additionally, her younger son has a de sonam 22q11.21>q11.22 microduplication and has a history of developmental delays and apraxia (motor, speech). Ms. March brought copies of these results to her prior visit with Marek Nixon CGC which will be scanned into her chart if needed for PGT purposes. Ms. 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 REPRODUCTIVE HISTORY: Currently : No history: 2015, daughter, FT, CS due to position (josefa side-up), no complications 22018, son, FT, RCS, no complications; maternally inherited 366 kb 2p16.3 microdeletion; high functioning autism and speech delays, "will have normal life" 3. 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 Patient's infertility work-up: Unexplained Partner's infertility work-up: Varicole surgery hx Infertility therapies: Planning for IVF with PGT Parental Screens: Horizon Expanded 613 Condition Carrier Screening Panel: CF: No SMA: No Hemoglobinopathies: No; Patient's MCV: 89.0 fL Denominational Diseases: Not at increased risk Other: Yes - and Mrs. 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 Parental follow-up studies were completed for their sons' microarray findings and Ms. March reported the microdeletion was maternally inherited while the microduplication was de sonam. Ms. 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 may sometimes experience a short period of breathing paralysis following anesthesia (such as succinylcholine or mivacurium) Factor 5 Leiden mutation, heterozygous (HCC) Genetic disorder (HCC) Migraine headache Mixed hypercholesterolemia and hypertriglyceridemia 2016 Personal history of diseases of blood and blood-forming organs PAST SURGICAL HISTORY Procedure Laterality Date DELIVERY ONLY , low transverse x 3 11/02/15,01/09/19, 11/25/20 TONSILLECTOMY PRIMARY/SECONDARY <AGE 12 Tonsillectomy Tara March: (age 37 ) - Hodgkin's lymphoma dx 34 s/p chemotherapy and clinical trial - Saw cancer genetics: Common Hereditary Cancers Panel, Myelodysplastic Syndrome/Leukemia Panel with preliminary evidence genes and Lymphoma panel with preliminary evidence genes through [facility] was negative for a pathogenic variant FAMILY HISTORY: A 3-generation pedigree was previously obtained for the patient and her partner by Marek Nixon CGC. The pedigree was scanned into patient's EMR. Of note: - Genetic and/or Inherited Disease: Yes - Ms. March's older son has a microdeletion and her younger son has a microduplication as noted in the HPI. - Ms. March reported her paternal first-cousin has a daughter with Down syndrome (maternal age 39 at delivery). - Common Disorders: Yes - reported her 's sister has ADHD. - Defects: No - Seizures: No - Recurrent Loss/Infertility: No - ID/DD/Autism: Yes - See HPI regarding Ms. March's sons' histories of autism/delays. She also reported her brother's son may have autism, although he does not have a formal diagnosis. - : No - Other: Yes - Ms. March reported her mother passed from multiple myeloma at 61 (dx. 54). - Ms. March reported her had non-Hodgkin's lymphoma diagnosed at 34, his father passed from AML at age 47, and a paternal aunt had a blood cancer. - Patient's ethnicity: Tristanian, Swedish, Marshallese - Partner's ethnicity: Afghan, [place] Islander - Patient and/or partner did not report -Ghanaian, , Mediterranean, Ashkenazi Denominational and/or Slovak-Algerian/Cajun ancestries unless noted above. - Patient and partner are NOT consanguineous The remainder of the known family history is negative for infertility, recurrent loss, stillbirth, unexplained , defects, malformation syndromes, chromosomal abnormalities, metabolic disorders, developmental delay, intellectual disability, known or suspected genetic diseases, and consanguinity except as noted above and on the formal pedigree. GENETIC COUNSELING/DISCUSSION: Ms. March is a 39 year old female referred for a preconception genetics visit. Specifically, her older son has a maternally inherited 2p16.3 microdeletion and has high functioning autism and speech delays. Additionally, her younger son has a de sonam 22q11.21>q11.22 microduplication and has a history of developmental delays and apraxia (motor, speech). Ms. Mrach brought copies of these results to her prior visit with Marek Nixon CGC which will be scanned into her chart if needed for PGT purposes. Ms. 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 Phenylketonuria (PKU) I discussed with and Mrs. March that phenylketonuria (PKU) is an autosomal recessive condition caused by homozygous mutations in the PAH gene. This gene is responsible for the creation of an enzyme known as phenylalanine hydroxylase. This enzyme converts phenylalanine to other compounds, and if the enzyme is not present in the body, phenylalanine can build up to toxic levels in the blood and tissues. As nerves cells are especially sensitive to excess phenylalanine levels, children with untreated PKU can present with irreversible intellectual disability, seizures, developmental delay, and various psychiatric disorders. These irreversible complications can be prevented if phenylalanine levels remain low in the blood. We discussed that PKU is controllable through a low protein diet and dietary supplements. I discussed with and Mrs. March that Mr. Beths variant is often associated with the more mild hyperphenylalaninemia, which is the least severe form of PKU. I shared with and Mrs. March that I reviewed their specific variants with our metabolic geneticists who anticipated that because of Mr. Beths variant, any child of the Evi would likely have an attenuated, or more mild, case of PKU. I cautioned that genotype/phenotype correlations are not perfect and we cannot guarantee that any child who has PKU will be less severely impacted. We reviewed that as a PKU carrier couple, there is a 1 in 4 (25%) chance to have a child who is an unaffected non-carrier, a 2 in 4 (50%) chance to have a child who is a carrier, and a 1 in 4 (25%) chance to have a child who is affected with PKU. Reviewed that Ms. March was identified as a carrier of 4 other recessive conditions, including Congenital Adrenal Hyperplasia 21?Hydroxylase Deficiency, OCA2?Related Oculocutaneous Albinism, Randolph Disease, and Pseudocholinesterase Deficiency. We discussed that since Mr. March was not identified as a carrier of any of these conditions, there is a much less than 1% chance for each condition in any of their current children or children they may have in the future. There are no known associations for carriers of Congenital Adrenal Hyperplasia 21?Hydroxylase Deficiency, OCA2?Related Oculocutaneous Albinism, or Randolph Disease. However, in some rare instances, carriers of Pseudocholinesterase Deficiency may sometimes experience a short period of breathing paralysis following anesthesia. I recommended that Ms. March share her Pseudocholinesterase Deficiency carrier status with her providers prior to procedures requiring anesthesia such as succinylcholine or mivacurium. Given her children may be also carriers, I recommended discussing this possibility with her children's providers and/or anesthesiology prior to procedures requiring anesthesia to determine appropriate next steps. We discussed that there are considerations when pursuing both PGT-M and PGT-A. Ms. March, Mr. March, and I reviewed that applying both of these screening techniques may limit the embryos available and recommended for transfer. It is possible that through these filters, there would not be any desirable or recommended embryos, thus necessitating another round of IVF. We briefly reviewed the option of using egg or sperm donors, which could come from a bank or family members who are not carriers of PKU. Ms. March appreciated this information. She expressed interest in one IVF cycle with PGT-A and PGT-M for the two copy number variants her sons have. Ms. March expressed a strong desire to prevent abnormalities/health concerns in future children. Discussed that it is not possible to guarantee a "perfect," healthy baby as not all genetic conditions can be tested for, sporadic defects or other de sonam findings can happen, and other unforeseeable circumstances beyond anyone's control are always possible (i.e. cancer diagnoses). Ms. March stated understanding, and wishes to test for aneuploidies and the conditions known in the family history. SUGGESTIONS/PLAN: Ms. March is interested in PGT-A and PGT-M for the copy number variants her sons have (one maternally inherited, one de sonam). 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 The PGT lab can confirm that it is indeed PGT-M needed for copy number variant testing. Follow-up with [facility] for next steps and so they can submit a formal request with a PGT lab. Ms. March was counseled that a healthy baby cannot be guaranteed, even with negative/normal PGT results. Encouraged Ms. March to contact myself for Marek Nixon with any questions/concerns/etc via [employer] or my provided phone line ([phone]). Thank you for referring Ms. March. Please do not hesitate to call if you have questions/concerns. The patient was seen for a total of 32 minutes, greater than 50% of which was spent [id number] counseling. This plan is being carried out under the oversight of Dr. Farideh De La Torre. This note will also be sent to the referring provider via the electronic medical record. Heidy Lundberg MS, JAH Licensed, Certified Genetic Counselor EPIC CC: JAH Hsu Dr. (secondary history teacher) documented in this encounter [facility] 09-19-2024 Note HNO ID: [id number] Author: HEIDY LUNDBERG LGC Service: ? Author Type: Genetic Counselor Type: Progress Notes Filed: 09/26/2024 12:46 Note Text: REPRODUCTIVE GENETIC COUNSELING INITIAL VISIT Debra March : 1985 Above identifiers confirmed by Heidy Lundberg MS, [facility] Consultation requested by: Dr. Sykes, Marek Nixon CGC Date of clinic visit: September 19, 2024 Clerk Checker offered/present: No - Swedish per EMR Debra March is a 39 year old female referred by Dr. Sykes for preconception genetic counseling to discuss her family medical history. She was accompanied to the visit today by her Tara March. Ms. March is seen via a virtual Distance Health visit today via [employer] platform per patient choice. The visit is conducted synchronously in real-time. The patient and her , Tara March are in attendance. I have communicated my name and active licensure. The patient's identity and physical location were verified at the time of this visit. Either the patient or their legal business development representative has been informed of the risks and benefits of -- and alternatives to -- treatment through a remote evaluation and consents to proceed with the evaluation remotely. PRESENTING PROBLEM: Ms. March is a 39 year old female referred for a preconception genetics visit. Specifically, her older son has a maternally inherited 2p16.3 microdeletion and has high functioning autism and speech delays. Additionally, her younger son has a de sonam 22q11.21>q11.22 microduplication and has a history of developmental delays and apraxia (motor, speech). Ms. March brought copies of these results to her prior visit with Marek Nixon CGC which will be scanned into her chart if needed for PGT purposes. Ms. 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 REPRODUCTIVE HISTORY: Currently : No history: 1. 2015, daughter, FT, CS due to position (josefa side-up), no complications 2. 2018, son, FT, RCS, no complications; maternally inherited 366 kb 2p16.3 microdeletion; high functioning autism and speech delays, "will have normal life" 3. 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 2022, SAB at 4-5 weeks Infertility as a couple: Yes. Patient's infertility work-up: Unexplained Partner's infertility work-up: Varicole surgery hx Infertility therapies: Planning for IVF with PGT Parental Screens: Horizon Expanded 613 Condition Carrier Screening Panel: CF: No SMA: No Hemoglobinopathies: No; Patient's MCV: 89.0 fL Denominational Diseases: Not at increased risk Other: Yes - and Mrs. 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 Parental follow-up studies were completed for their sons' microarray findings and Ms. March reported the microdeletion was maternally inherited while the microduplication was de sonam. Ms. 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 may sometimes experience a short period of breathing paralysis following anesthesia (such as succinylcholine or mivacurium) Factor 5 Leiden mutation, heterozygous (HCC) Genetic disorder (HCC) Migraine headache Mixed hypercholesterolemia and hypertriglyceridemia 2016 Personal history of diseases of blood and blood-forming organs PAST SURGICAL HISTORY Procedure Laterality Date DELIVERY ONLY , low transverse x 3 11/02/15,01/09/19, 11/25/20 TONSILLECTOMY PRIMARY/SECONDARY Tonsillectomy Tara March: (age 37 ) - Hodgkin's lymphoma dx 34 s/p chemotherapy and clinical trial - Saw cancer genetics: Common Hereditary Cancers Panel, Myelodysplastic Syndrome/Leukemia Panel with preliminary evidence genes and Lymphoma panel with preliminary evidence genes through [facility] was negative for a pathogenic variant FAMILY HISTORY: A 3-generation pedigree was previously obtained for the patient and her partner by Marek Nixon CGC. The pedigree was scanned into patient's EMR. Of note: - Genetic and/or Inherited Disease: Yes - Ms. March's older son has a microdeletion and her younger son has a microduplication as noted in the HPI. - Ms. March reported her paternal first-cousin has a daughter with Down syndrome (maternal age 39 at delivery). - Common Disorders: Yes - reported her 's sister has ADHD. - Defects: No - Seizures: No - Recurrent Loss/Infertility: No - ID/DD/Autism: (more content not included)... [facility] 09-17-2024 Telephone encounter Note Orders for STD cycle. Dusty Granado RN September 17, 2024 11:16 AM [facility] 09-17-2024 Miscellaneous Notes Orders for STD cycle. Dusty Granado RN September 17, 2024 11:16 AM documented in this encounter [facility] 09-15-2024 Note HNO ID: [id number] Author: DUSTY GRNAADO RN Service: ? Author Type: Registered Nurse Type: Progress Notes Filed: 09/18/2024 08:42 Note Text: REPRODUCTIVE ENDOCRINOLOGY AND INFERTILITY TELEVISIT NURSE TEACH SERVICE DATE: 09/15/2024 SERVICE TIME: 7:14 AM NAME: Debra March Pt met with genetics on 08/25-note is not completed. Sent chart high priority to Marek Nixon. Dusty Granado RN September 15, 2024 7:28 AM Telephone Nurse Teach Note Patient name and birthday verified: Yes Persons Present: patient Partner's Name: Tara March Partner's : 04/15/1987 Partner's Reason for visit: IVF Checklist Patient had an IVF consult with Farideh Perez MD on 08/15/24 Family history of carrier of genetic disease -two sons with chromosomal abnormality ALICE Treatment plan / protocol: Antagonist Starting Dose: 250 units rFSH or higher pending AFC Supplemental meds: None Trigger: Lupron plus up to 5000 Units HCG if low risk of OHSS PGT: she will need PGT. However, since the genetic report is not available, I do not know if she needs PGT-A, M or SR. OK to start OCPs for cycle start timing: No due to please see HPI Single intent Sperm Source:[facility] Previous Fertility Treatment? - IUI X3 G 4P 3013 LMP 08/19/24, Cycles- 28 days IVF #1 WITH PGT CLEARED Ultrasounds self-pay or bill to insurance: INSURANCE Was clinical notified of clearance? NO Was pt notified of clearance? YES Authorized date range: PLAN COVERS IVF/US WITHOUT THE NEED FOR PA. PA PENDING FOR PGT. PT PAID $3,694 WHILE WAITING FOR PA. IF PA COMES BACK APPROVED, PT WILL NEED A PAPER CHECK A REFUND Authorized referral# [id number] Reviewed and Completed: Yes No Medications and allergies reviewed and updated. [x] [] History reviewed: OB, Medical, Surgical, and Substance [x] [] Consents for IVF and Cryopreservations reviewed and sent [x] [] Pre IVF requirements sent to the patient via [employer] [x] [] Pre IVF Requirements Reviewed [x] [] Consents for IVF and Cryopreservations reviewed and sent to my chart [x] [] / Medical History Questions Yes No Pertinent details Any artificial parts, pins, limbs, lines, drains, ports, implants, prosthetics? [] [x] Do you have any Thyroid problems? [] [x] Do you have diabetes? [] [x] If so, last eye apt and MFM visit Any personal history of blood clots are hematology issues? [x] [] Do you have sleep apnea? [] [x] If so, do they have a CPAP machine? Any latex allergies? [] [x] Have you used control pills in the past? [] [x] Any contraindications to control pills: migraines, smoking, blood clots? [x] [] Are you taking weight loss medication either injectable or oral? [] [x] Start date/last dosage Preferred Monitoring Site [place] [] [place] [x] HANDP @ [facility] [] Main Cable [] Baseline @ [place] [] Baseline @ Out of Town Monitoring [] IVF Checklist Done Not Done In Process N/A [x] [] [] AMH Level 3.59 on 08/27/24 [] [x] [] labs: TANDS, Rubella IgG 07/12/23+, Varicella IgG [] [x] [] Patient STI Testing [x] [] [] Patient Genetic Carrier Screening [facility] _PKU carrier [] [x] [] Uterine Evaluation- Reviewed needed prior to FET [] [x] [] [facility] / pap up to date [] [] [] [x] Mammogram if >February will need- done at [facility] [] [x] [] [] Semen Analysis [] [x] [] [] Partner STI Testing [x] [] [] [] Partner Genetic Carrier Screening [facility]- pku carrier Yes No TBD [x] [] [] PGTA Testing- A-yes, M [x] [] Episode, checklist, ART cycle plan, and flow sheet completed [x] [] Patient and partner agrees to not order medications until all requirements are completed and they have been instructed to do so [x] [] Patient and Partner verbally agreed on 09/15/24 to share their medical information with each other. [x] [] Discussed vacations 11/13-11/20 [x] [] Discussed weekend monitoring [x] [] Discussed time off work / FMLA [x] [] My chart use and when to call the office Plan: Complete IVF checklist. Call the office when complete / and or call with the first day of your full flow period. Marek Nixon, [facility] Dusty Granado RN Hi Kelly, I will work on my note marta. 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 I will send a message ralfroyce (I need to run to a personal appointment) and offer a phone call and formal visit to review in more detail. The patient has a son with a maternally inherited microdeletion and another son with a de sonam microduplication and she is interested in testing embryos for both. I believe it is technically PGT-M for copy number variants. Not every lab can test for de sonam conditions - I don't know what [facility] and [facility] can or can't test for. Other labs that may be able to if they (more content not included)... [facility] 09-15-2024 History of Present illness Narrative Images from the original note were not included. REPRODUCTIVE ENDOCRINOLOGY AND INFERTILITY TELEVISIT NURSE TEACH SERVICE DATE: 09/15/2024 SERVICE TIME: 7:14 AM NAME: Debra March Pt met with genetics on 08/25-note is not completed. Sent chart high priority to Marek Nixon. Dusty Granado RN September 15, 2024 7:28 AM Telephone Nurse Teach Note Patient name and birthday verified: Yes Persons Present: patient Partner's Name: Tara March Partner's : 04/15/1987 Partner's Reason for visit: IVF Checklist Patient had an IVF consult with Farideh Perez MD on 08/15/24 Family history of carrier of genetic disease -two sons with chromosomal abnormality ALICE Treatment plan / protocol: Antagonist Starting Dose: 250 units rFSH or higher pending [facility] Supplemental meds: None Trigger: Lupron plus up to 5000 Units HCG if low risk of OHSS PGT: she will need PGT. However, since the genetic report is not available, I do not know if she needs PGT-A, M or SR. OK to start OCPs for cycle start timing: No due to please see HPI Single intent Sperm Source:Part[facility] Previous Fertility Treatment? - IUI X3 G 4P 3013 LMP 08/19/24, Cycles- 28 days IVF #1 WITH PGT CLEARED Ultrasounds self-pay or bill to insurance: INSURANCE Was clinical notified of clearance? NO Was pt notified of clearance? YES Authorized date range: PLAN COVERS IVF/US WITHOUT THE NEED FOR PA. PA PENDING FOR PGT. PT PAID $3,694 WHILE WAITING FOR PA. IF PA COMES BACK APPROVED, PT WILL NEED A PAPER CHECK A REFUND Authorized referral# [id number] Reviewed and Completed: Yes No Medications and allergies reviewed and updated. [x] [] History reviewed: OB, Medical, Surgical, and Substance [x] [] Consents for IVF and Cryopreservations reviewed and sent [x] [] Pre IVF requirements sent to the patient via Med[employer] [x] [] Pre IVF Requirements Reviewed [x] [] Consents for IVF and Cryopreservations reviewed and sent to my chart [x] [] / Medical History Questions Yes No Pertinent details Any artificial parts, pins, limbs, lines, drains, ports, implants, prosthetics? [] [x] Do you have any Thyroid problems? [] [x] Do you have diabetes? [] [x] If so, last eye apt and MFM visit Any personal history of blood clots are hematology issues? [x] [] Do you have sleep apnea? [] [x] If so, do they have a CPAP machine? Any latex allergies? [] [x] Have you used control pills in the past? [] [x] Any contraindications to control pills: migraines, smoking, blood clots? [x] [] Are you taking weight loss medication either injectable or oral? [] [x] Start date/last dosage Preferred Monitoring Site [place] [] [place] [x] H&P @ [facility] [] Main Cable [] Baseline @ [place] [] Baseline @ Out of Town Monitoring [] IVF Checklist Done Not Done In Process N/A [x] [] [] AMH Level 3.59 on 08/27/24 [] [x] [] labs: T&S, Rubella IgG 07/12/23+, Varicella IgG [] [x] [] Patient STI Testing [x] [] [] Patient Genetic Carrier Screening [facility] _PKU carrier [] [x] [] Uterine Evaluation- Reviewed needed prior to FET [] [x] [] [facility] / pap up to date [] [] [] [x] Mammogram if >February will need- done at [facility] [] [x] [] [] Semen Analysis [] [x] [] [] Partner STI Testing [x] [] [] [] Partner Genetic Carrier Screening [facility]- pku carrier Yes No TBD [x] [] [] PGTA Testing- A-yes, M [x] [] Episode, checklist, ART cycle plan, and flow sheet completed [x] [] Patient and partner agrees to not order medications until all requirements are completed and they have been instructed to do so [x] [] Patient and Partner verbally agreed on 09/15/24 to share their medical information with each other. [x] [] Discussed vacations 11/13-11/20 [x] [] Discussed weekend monitoring [x] [] Discussed time off work / FMLA [x] [] My chart use and when to call the office Plan: Complete IVF checklist. Call the office when complete / and or call with the first day of your full flow period. Marek Nixon, [facility] Dusty Granado, MYRNA Montano, I will work on my note marta. 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 I will send a message marta (I need to run to a personal appointment) and offer a phone call and formal visit to review in more detail. The patient has a son with a maternally inherited microdeletion and another son with a de sonam microduplication and she is interested in testing embryos for both. I believe it is technically PGT-M for copy number variants. Not every lab can test for de sonam conditions - I don't know what [facility] and [facility] can or can't test for. Other labs that may be able to if they cannot are [facility] or [facility]. She is also interested in PGT-A. We discussed that the more things are tested for, the lower the likelihood to obtain a suitable embryo for transfer. When we met, she said she wanted to try one cycle and see what happens. If there is no suitable embryo for transfer, she would not be interested in more cycles or having additional children. Nasim, Marek" Eder Sykes MD Welsh, Kelly, RN I think we should send her genetic results to [facility] to see what they think about her situations. I would hold off on setting her start date for her until we know that [facility] can do the testing. Farideh" FINANCIAL -done LINK for records -done [facility] To patients reading this note: Please be advised the primary purpose of this note is for me to communicate with myself and other members of your medical team. Standard sentence structure is not always used. Medical terminology and medical abbreviations may be used. There may be grammatical and typographical errors missed in proofreading. Dusty Granado RN September 15, 2024 10:30 AM documented in this encounter [facility] 09-09-2024 Telephone encounter Note Pt. informed via My chart. [facility] 09-09-2024 Miscellaneous Notes Pt. informed via My chart. Reviewed PCP's last note. Prescription for Metformin 500 mg once daily with dinner sent to pharmacy. If tolerating and needed, can consider increase to twice daily with meals. Mary Hamilton PA-C 09/09/2024 The following approved medication requests have been transmitted electronically. Requested Prescriptions Signed Prescriptions Disp Refills metFORMIN (GLUCOPHAGE) 500 mg tablet 90 tablet 1 Sig: Take 1 tablet by mouth daily with dinner. Authorizing Provider: MARY HAMILTON PA-C Patient calls and states that she looked up the medication that Dr. Benson was recommending for her to help her lose weight. Patient states that she would like to be started on Metformin. Please send prescription to pharmacy for this. Patient uses [facility] [address]. Please review and advise, Zakiya Jeffrey RN documented in this encounter [facility] 09-09-2024 Telephone encounter Note Reviewed PCP's last note. Prescription for Metformin 500 mg once daily with dinner sent to pharmacy. If tolerating and needed, can consider increase to twice daily with meals. Mary Hamilton PA-C 09/09/2024 The following approved medication requests have been transmitted electronically. Requested Prescriptions Signed Prescriptions Disp Refills metFORMIN (GLUCOPHAGE) 500 mg tablet 90 tablet 1 Sig: Take 1 tablet by mouth daily with dinner. Authorizing Provider: MARY HAMILTON PA-C [facility] 09-09-2024 Telephone encounter Note Patient calls and states that she looked up the medication that Dr. Benson was recommending for her to help her lose weight. Patient states that she would like to be started on Metformin. Please send prescription to pharmacy for this. Patient uses [facility] [address]. Please review and advise, Zakiya Jeffrey RN [facility] 09-03-2024 Instructions Frantz Benson DO - 09/03/2024 3:40 PM EDT Adipex Or Topamax Or Metformin Or Qsymia Or Contrave Weight loss medications documented in this encounter [facility] 09-03-2024 Note HNO ID: [id number] Author: BENSON, FRANTZ, DO Service: ? Author Type: Physician Type: Progress Notes Filed: 09/03/2024 17:52 Note Text: CC: Debra March is a 39 year old female who presents to the office for physical HPI: Migraine headaches, long standing, taking Ubrelvy as prescribed, no new symptoms Obesity, BMI 33.46. she knows need for weight loss. HPL Cholesterol, Total Date Value Ref Range Status 02/22/2023 172 0 - 199 mg/dL Final Comment: <200 mg/dL, Desirable 200-239 mg/dL, Borderline high >239 mg/dL, High HDL Cholesterol Date Value Ref Range Status 02/22/2023 35 (L) >40 mg/dL Final Comment: 40-59 mg/dL, Acceptable >59 mg/dL, High: Negative risk factor for coronary heart disease <40 mg/dL, Low: Positive risk factor for coronary heart disease LDL Cholesterol Date Value Ref Range Status 02/22/2023 105 0 - 129 mg/dL Final Comment: <100 mg/dL, Optimal 100-129 mg/dL, Near optimal/above optimal 130-159 mg/dL, Borderline high 160-189 mg/dL, High >189 mg/dL, Very high Secondary prevention optimal LDL Cholesterol levels are recommended to be < 70 mg/dL Triglyceride Date Value Ref Range Status 02/22/2023 159 (H) 30 - 149 mg/dL Final Comment: <150 mg/dL, Normal 150-199 mg/dL, Borderline high 200-499 mg/dL, High >499 mg/dL, Very high Patients receiving either N-Acetylcysteine (NAC) or Metamizole prior to venipuncture, may have falsely depressed results. PAST MEDICAL HISTORY Diagnosis Date Factor 5 Leiden mutation, heterozygous (HCC) Migraine headache Mixed hypercholesterolemia and hypertriglyceridemia 2015 PAST SURGICAL HISTORY Procedure Laterality Date DELIVERY ONLY 11/02/15,01/09/19 , low transverse x 3 TONSILLECTOMY PRIMARY/SECONDARY Tonsillectomy Social History: Social History Tobacco Use Smoking status: Never Smokeless tobacco: Never Vaping Use Vaping status: Never Used Substance Use Topics Alcohol use: Not Currently Drug use: No FAMILY HISTORY Problem Relation Age of Onset Cancer Mother 55 multiple myeloma Hyperlipidemia Father Diabetes Father borderline Hyperlipidemia Brother Breast Cancer Maternal Grandmother Diabetes Maternal Grandmother Heart Maternal Grandmother Heart Maternal Grandfather Cancer Paternal Grandmother Brain Heart Paternal Grandfather Heart Attack Paternal Grandfather Current Outpatient prescriptions: ubrogepant (UBRELVY) 100 mg tablet Take 1 tablet by mouth as needed at onset of migraine. May repeat dose at 2 hours if needed. Max 200 mg per 24 hours. letrozole (FEMARA) 2.5 mg tablet Take 1 tablet by mouth once daily. on cycle days 3-7 Allergies: ALLERGIES Allergen Reactions Amoxicillin Rash Ceftin [Cefuroxime * GI Upset Vomiting and diarrhea Ilosone Rash Naldecon Other: See Comments Penicillin Rash Phenylephrine Other: See Comments hallucinations [id number]-My-Fprl* Other: See Comments hallucinations Pseudoephedrine Other: See Comments hallucinations Red Dye Other: See Comments hallucinations ROS: See HPI PE: 09/03/24 1441 BP: 101/65 Pulse: 87 Resp: 12 Weight: 83 kg (183 lb) Height: 157.5 cm (5' 2.01") Gen: AANDO, NAD, non-toxic appearing, Pleasant, cooperative HEENT: NT/AC, PERRLA, EOMs intact b/l, nares clear and patent b/l, pharynx without erythema, exudate or lesions. MMM, Uvula midline. EACs without erythema or debris. TMs pearly cardenas with intact landmarks b/l. Neck: supple, No cervical LAD, no thyromegaly, no carotid bruits CV: RRR, normal S1 and S2, no murmurs, no gallops, no rubs, Pulses 2+ and symmetric in UE and LE b/l Lungs: normal respiratory effort, CTA b/l, no wheezing or rhonchi or rales Abd: soft, NT, ND, +BS, no hepatosplenomegaly MS: FROM all 4 extremities Neuro: CN II-XII intact b/l, strength 5/5 b/l UE and LE, DTRs 2/4 UE and LE, sensation intact. Skin: warm, dry, intact, No rashes or lesions on exposed skin. No edema, normal pulses ASSESSMENT/PLAN: 1. Well adult exam - ICD9: V70.0, ICD10: Z00.00 (primary diagnosis) - Counseled on healthy diet and regular exercise - Discussed need and benefit for weight loss. BMI 33.46 kg/(m2) - COMPREHENSIVE METABOLIC PANEL - COMPLETE BLOOD COUNT AND DIFFERENTIAL - LIPID PANEL, FASTING - HEMOGLOBIN A1C - THYROID STIMULATING HORMONE 2. Encounter for screening mammogram for malignant neoplasm of breast - ICD9: V76.12, ICD10: Z12.31 - Encouraged monthly BSE - Increase calcium intake with supplements or by diet (goal of 2684-9651 mg/day - Follow up for annual exam in one year. - POPPY SCREENING W PATRIZIA 3. Class 1 obesity with body mass index (BMI) of 33.0 to 33.9 in adult, unspecified obesity type, unspecified whether serious comorbidity present - ICD9: 278.00, V85.33, ICD10: E66.811, Z68.33 Weight increasing - Behavioral intervention and - Pharmacological intervention Consider adding on Topamax or Adipex or Metformin (more content not included)... [facility] 09-03-2024 History of Present illness Narrative CC: Debra March is a 39 year old female who presents to the office for physical HPI: Migraine headaches, long standing, taking Ubrelvy as prescribed, no new symptoms Obesity, BMI 33.46. she knows need for weight loss. HPL Cholesterol, Total Date Value Ref Range Status 02/22/2023 172 0 - 199 mg/dL Final Comment: <200 mg/dL, Desirable 200-239 mg/dL, Borderline high >239 mg/dL, High HDL Cholesterol Date Value Ref Range Status 02/22/2023 35 (L) >40 mg/dL Final Comment: 40-59 mg/dL, Acceptable >59 mg/dL, High: Negative risk factor for coronary heart disease <40 mg/dL, Low: Positive risk factor for coronary heart disease LDL Cholesterol Date Value Ref Range Status 02/22/2023 105 0 - 129 mg/dL Final Comment: <100 mg/dL, Optimal 100-129 mg/dL, Near optimal/above optimal 130-159 mg/dL, Borderline high 160-189 mg/dL, High >189 mg/dL, Very high Secondary prevention optimal LDL Cholesterol levels are recommended to be < 70 mg/dL Triglyceride Date Value Ref Range Status 02/22/2023 159 (H) 30 - 149 mg/dL Final Comment: <150 mg/dL, Normal 150-199 mg/dL, Borderline high 200-499 mg/dL, High >499 mg/dL, Very high Patients receiving either N-Acetylcysteine (NAC) or Metamizole prior to venipuncture, may have falsely depressed results. PAST MEDICAL HISTORY Diagnosis Date Factor 5 Leiden mutation, heterozygous (HCC) Migraine headache Mixed hypercholesterolemia and hypertriglyceridemia 2015 PAST SURGICAL HISTORY Procedure Laterality Date DELIVERY ONLY 11/02/15,01/09/19 , low transverse x 3 TONSILLECTOMY PRIMARY/SECONDARY <AGE 12 Tonsillectomy Social History: Social History Tobacco Use Smoking status: Never Smokeless tobacco: Never Vaping Use Vaping status: Never Used Substance Use Topics Alcohol use: Not Currently Drug use: No FAMILY HISTORY Problem Relation Age of Onset Cancer Mother 55 multiple myeloma Hyperlipidemia Father Diabetes Father borderline Hyperlipidemia Brother Breast Cancer Maternal Grandmother Diabetes Maternal Grandmother Heart Maternal Grandmother Heart Maternal Grandfather Cancer Paternal Grandmother Brain Heart Paternal Grandfather Heart Attack Paternal Grandfather Current Outpatient prescriptions: ubrogepant (UBRELVY) 100 mg tablet Take 1 tablet by mouth as needed at onset of migraine. May repeat dose at 2 hours if needed. Max 200 mg per 24 hours. letrozole (FEMARA) 2.5 mg tablet Take 1 tablet by mouth once daily. on cycle days 3-7 Allergies: ALLERGIES Allergen Reactions Amoxicillin Rash Ceftin [Cefuroxime * GI Upset Vomiting and diarrhea Ilosone Rash Naldecon Other: See Comments Penicillin Rash Phenylephrine Other: See Comments hallucinations Mtqaxadomio-Xq-Hzpe* Other: See Comments hallucinations Pseudoephedrine Other: See Comments hallucinations Red Dye Other: See Comments hallucinations ROS: See HPI PE: 09/03/24 1441 BP: 101/65 Pulse: 87 Resp: 12 Weight: 83 kg (183 lb) Height: 157.5 cm (5' 2.01") Gen: A&O, NAD, non-toxic appearing, Pleasant, cooperative HEENT: NT/AC, PERRLA, EOMs intact b/l, nares clear and patent b/l, pharynx without erythema, exudate or lesions. MMM, Uvula midline. EACs without erythema or debris. TMs pearly cardenas with intact landmarks b/l. Neck: supple, No cervical LAD, no thyromegaly, no carotid bruits CV: RRR, normal S1 and S2, no murmurs, no gallops, no rubs, Pulses 2+ and symmetric in UE and LE b/l Lungs: normal respiratory effort, CTA b/l, no wheezing or rhonchi or rales Abd: soft, NT, ND, +BS, no hepatosplenomegaly MS: FROM all 4 extremities Neuro: CN II-XII intact b/l, strength 5/5 b/l UE and LE, DTRs 2/4 UE and LE, sensation intact. Skin: warm, dry, intact, No rashes or lesions on exposed skin. No edema, normal pulses ASSESSMENT/PLAN: 1. Well adult exam - ICD9: V70.0, ICD10: Z00.00 (primary diagnosis) - Counseled on healthy diet and regular exercise - Discussed need and benefit for weight loss. BMI 33.46 kg/(m^2) - COMPREHENSIVE METABOLIC PANEL - COMPLETE BLOOD COUNT AND DIFFERENTIAL - LIPID PANEL, FASTING - HEMOGLOBIN A1C - THYROID STIMULATING HORMONE 2. Encounter for screening mammogram for malignant neoplasm of breast - ICD9: V76.12, ICD10: Z12.31 - Encouraged monthly BSE - Increase calcium intake with supplements or by diet (goal of 5127-1112 mg/day - Follow up for annual exam in one year. - POPPY SCREENING W PATRIZIA 3. Class 1 obesity with body mass index (BMI) of 33.0 to 33.9 in adult, unspecified obesity type, unspecified whether serious comorbidity present - ICD9: 278.00, V85.33, ICD10: E66.811, Z68.33 Weight increasing - Behavioral intervention and - Pharmacological intervention Consider adding on Topamax or Adipex or Metformin or combination of medication Frantz Benson DO To ER if develops chest pain, shortness of breath, or severe worsening of symptoms. Discussed risks, benefits, alternatives, and potential side effects of medications. Patient expressed understanding and agreed with the plan. Frantz Benson DO [address] [place] [address] documented in this encounter [facility] 08-26-2024 Telephone encounter Note Message sent to pt through [email or web address] that AMH order is being placed. Closing this encounter. Duarte Verde MA August 26, 2024 3:33 PM [facility] 08-26-2024 Miscellaneous Notes Message sent to pt through [email or web address] that AMH order is being placed. Closing this encounter. Duarte Verde MA August 26, 2024 3:33 PM Name: Debra March called today. : 1985 (home) [phone] (cell) Reason for call: patient called today asking the dr for AMH orders so she will be able to speak to FC and proceed with her IVF The patients preferred pharmacy has been captured for this encounter? [facility] [employer] documented in this encounter [facility] 08-26-2024 Telephone encounter Note Name: Debra March called today. : 1985 (home) [phone] (cell) Reason for call: patient called today asking the dr for AMH orders so she will be able to speak to FC and proceed with her IVF The patients preferred pharmacy has been captured for this encounter? [facility] [employer] [facility] 08-25-2024 History of Present illness Narrative Images from the original note were not included. REPRODUCTIVE GENETIC COUNSELING INITIAL VISIT - PRECONCEPTION Debra March : 1985 Above identifiers confirmed by Marek Nixon MS, [facility] [place]ation requested by: Dr. Eder Sykes Date of clinic visit: August 25, 2024 Clerk Checker offered/present: No - Swedish per EMR Debra March is a 39 year old female referred by Dr. Sykes for preconception genetic counseling to discuss her family medical history. She was unaccompanied to the visit today. PRESENTING PROBLEM: Ms. March is a 39 year old female referred for a preconception genetics visit to discuss her family medical history. Specifically, her older son has a maternally inherited 2p16.3 microdeletion and has high functioning autism and speech delays. Additionally, her younger son has a de sonam 22q11.21>q11.22 microduplication and has a history of developmental delays and apraxia (motor, speech). Ms. March brought copies of these results to the visit which will be scanned into her chart if needed for PGT purposes. She presents today to discuss these results, recurrence risks, and genetic testing and screening options. REPRODUCTIVE HISTORY: Currently : No history: 1. 2015, daughter, FT, CS due to position (josefa side-up), no complications 2. 2018, son, FT, RCS, no complications; maternally inherited 366 kb 2p16.3 microdeletion; high functioning autism and speech delays, "will have normal life" 3. 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 2022, SAB at 4-5 weeks Infertility as a couple: Yes. Patient's infertility work-up: Unexplained Partner's infertility work-up: Varicole surgery hx Infertility therapies: Planning for IVF with PGT Parental Screens: CF: No SMA: No Hemoglobinopathies: No; Patient's MCV: 89.0 fL Denominational Diseases: Not at increased risk Other: Yes - Parental follow-up studies were completed for their sons' microarray findings and Ms. March reported the microdeletion was maternally inherited while the microduplication was de sonam. Ms. March's previously had cancer genetic testing which was negative Chromosomal analysis: Patient: No Partner: No Products of conception: No SIGNIFICANT PAST MEDICAL/SURGICAL HISTORIES: Debra: - No major medical concerns Tara: (age 37) - Hodgkin's lymphoma dx 34 s/p chemotherapy and clinical trial - Saw cancer genetics: Common Hereditary Cancers Panel, Myelodysplastic Syndrome/Leukemia Panel with preliminary evidence genes and Lymphoma panel with preliminary evidence genes through [facility] was negative for a pathogenic variant FAMILY HISTORY: A 3-generation pedigree was obtained for the patient and her partner and will be scanned into patient's EMR. Of note: - Genetic and/or Inherited Disease: Yes - Ms. March's older son has a microdeletion and her younger son has a microduplication as noted in the HPI. - Ms. March reported her paternal first-cousin has a daughter with Down syndrome (maternal age 39 at delivery). - Common Disorders: Yes - reported her 's sister has ADHD. - Defects: No - Seizures: No - Recurrent Loss/Infertility: No - ID/DD/Autism: Yes - See HPI regarding Ms. March's sons' histories of autism/delays. She also reported her brother's son may have autism, although he does not have a formal diagnosis. - : No - Other: Yes - Ms. March reported her mother passed from multiple myeloma at 61 (dx. 54). - Ms. March reported her had non-Hodgkin's lymphoma diagnosed at 34, his father passed from AML at age 47, and a paternal aunt had a blood cancer. - Patient's ethnicity: Tristanian, Swedish, Marshallese - Partner's ethnicity: Afghan, [place] Islander - Patient and/or partner did not report -Ghanaian, , Mediterranean, Ashkenazi Denominational and/or Slovak-Algerian/Cajun ancestries unless noted above. - Patient and partner are NOT consanguineous The remainder of the known family history is negative for infertility, recurrent loss, stillbirth, unexplained , defects, malformation syndromes, chromosomal abnormalities, metabolic disorders, developmental delay, mental retardation, known or suspected genetic diseases, and consanguinity except as noted above and on the formal pedigree. GENETIC COUNSELING/DISCUSSION: Ms. March is a 39 year old female presenting for preconception genetic counseling as noted in the HPI. 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 March's older son. This microdeletion contains part of the NRXN1 gene. Per the lab report, heterozygous partial deletions of this gene have been associated with susceptibility to neuropsychiatric disorders including intellectual disability, epilepsy, autism, and schizophrenia. These partial deletions have been seen to be inherited from unaffected parents in some cases, indicating incomplete penetrance. Variable expressivity has also been noted with features varying between affected relatives in families. 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 Given known incomplete penetrance and variable expressivity, however, genetic testing cannot predict what symptoms, if any, a child would have if this is inherited. Rather, clinical features after delivery would need to be assessed as children grow up as symptoms associated with this deletion cannot be detected prenatally. Ms. March stated understanding. 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 March's younger son, which is a recurrent microduplication. Features associated with this copy number variant include, but are not limited to, developmental delay, seizures, speech delay, and hypotonia. Given this was de sonam, recurrence risks for future pregnancies are ~1%. Explained this non-zero recurrence risk is due to the possibility of germline mosaicism. Ms. March verbalized understanding. Copy number variant testing options: Reviewed available testing and screening options for her son's copy number variants in future pregnancies including IVF with preimplantation genetic testing (PGT) for monogenic disorders (PGT-M), diagnosis via chorionic villus sampling or amniocentesis, or testing. Risks, benefits, limitations, and timing of these options were reviewed. Also shared termination limits in [place]. Ms. March expressed interest in IVF with PGT, so this was reviewed in further detail. IVF with PGT: Discussed PGT methodologies in general. Reviewed that the typical IVF process is initiated, where eggs are fertilized and embryos are then grown until day 5 or 6. At this point, the trophectoderm, the cells destined to become the placenta, are biopsied and embryos are frozen. With PGT for aneuploidy (PGT-A), the biopsied cells are screened for all 23 pairs of chromosomes to determine if the embryos are euploid, aneuploid, or mosaic. An explanation of chromosomes and mosaicism was provided. Aneuploid embryos would be discarded as not suitable for transfer and euploid embryos would be prioritized for transfer. Mosaic embryos may be considered for transfer if informed consent is provided after a genetic counseling discussion about implications, risks, benefits, and limitations. Shared that sex can be opted in or opted out of. Reviewed aneuploidy rates based on maternal age at egg retrieval. Discussed that PGT-A is not 100% accurate, but rather closer to 97-98% accurate, so confirmatory testing during is recommended. Reviewed that PGT-A has been shown to increase implantation rates, decrease miscarriage rates, and increase ongoing and live rates. Discussed that the [facility] center would be able to discuss associated costs and insurance coverage. Next, reviewed the differences between PGT-A and PGT-M. Discussed that PGT-A screens for chromosomes to evaluate for aneuploidy while PGT-M screens for monogenic disorders or in her case, specific copy number variants. Reviewed that if she and her were carriers for the same condition, PGT-M would be able to screen the embryos to determine if they are affected, carriers, or unaffected, non-carriers. Explained PGT-M can also assess for the copy number variants her sons have. Cautioned that not every PGT lab is able to test for de sonam findings. Family member samples are typically required for probe development and the PGT lab would outline sample requirements. Informed her that patients typically meet with the PGT lab genetic counselors to review logistics as well. Again reviewed that PGT-M is not 100% accurate but rather, >95% accurate, so confirmatory testing in is recommended. All questions were answered to the best of this provider's ability. Reviewed that PGT-A or PGT-M may be completed alone or concurrently. Shared that multiple IVF cycles may be required to obtain embryos that are suitable for transfer as concurrent PGT-A with PGT-M, especially for multiple conditions/findings, may reduce the number of suitable embryos given additional conditions are being screened for. Ms. March plans to follow-up with [facility] regarding next steps. She expressed interest in one IVF cycle with PGT-A and PGT-M for the two copy number variants her sons have. If suitable embryos are not obtained, she is not interested in additional IVF cycles as this time. Ms. March expressed a strong desire to prevent abnormalities/health concerns in future children. Discussed that it is not possible to guarantee a "perfect," healthy baby as not all genetic conditions can be tested for, sporadic defects or other de sonam findings can happen, and other unforeseeable circumstances beyond anyone's control are always possible (i.e. cancer diagnoses). Ms. March stated understanding, and wishes to test for aneuploidies and the conditions known in the family history. Based on family history: Discussed the options of carrier screening for ACOG recommended conditions, expanded carrier screening for 267 conditions, or more comprehensive carrier screening through a 500+ gene panel, which is recommended for consanguineous couples and couples with a family history of specific conditions, but may be considered for information-seeking couples. Explained expanded carrier screening is part of the IVF checklist at [facility]. Reviewed autosomal recessive and X-linked inheritance as well as the benefits, risks, and limitations of the screening. Discussed the associated costs and turn around times. Reviewed available options if she and her partner are a carrier couple. Discussed the option of stepwise versus concurrent screening. Ms. March opted for concurrent expanded carrier screening through [facility] (613 gene panel). Reviewed Ms. March's family history of Down syndrome. Briefly discussed molecular etiologies (non-disjunction, translocation, and mosaicism) and the likely non-disjunction nature. Reviewed that if this is indeed the case, recurrence risks would not be elevated based on this family history beyond general population age-related risks. Ms. March indicated understanding. SUGGESTIONS/PLAN: 1. Ms. March opted for concurrent expanded carrier screening through [facility] (613 gene panel) with her , Tara March ( ). The orders have been placed and they will be notified of the results. 2. Ms. March is interested in PGT-A and PGT-M for the copy number variants her sons have (one maternally inherited, one de sonam). 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 The PGT lab can confirm that it is indeed PGT-M needed for copy number variant testing. 3. Follow-up with [facility] for next steps and so they can submit a formal request with a PGT lab. 4. Ms. March was counseled that a healthy baby cannot be guaranteed, even with negative/normal PGT results. 5. Follow-up as indicated by the above results. 6. Encouraged her to contact me with any questions/concerns/etc. Thank you for referring Ms. March. Please do not hesitate to call if you have questions/concerns. The patient was seen for a total of 85 minutes, greater than 50% of which was spent [id number] counseling. This plan is being carried out under the oversight of Dr. Farideh De La Torre. This note will also be sent to the referring provider via the electronic medical record. Marek Nixon MS, JAH Licensed, Certified Genetic Counselor EPIC CC: Dr. Eder Sykes - Referring Physician Dusty Granado, RN - [facility] Nurse Dr. Farideh De La Torre (secondary history teacher) documented in this encounter [facility] 08-25-2024 Note HNO ID: [id number] Author: MAREK NIXON LGC Service: ? Author Type: Genetic Counselor Type: Progress Notes Filed: 10/20/2024 08:44 Note Text: REPRODUCTIVE GENETIC COUNSELING INITIAL VISIT - PRECONCEPTION Debra March : 1985 Above identifiers confirmed by Marek Nixon MS, CGC Consultation requested by: Dr. Eder Sykes Date of clinic visit: August 25, 2024 Clerk Checker offered/present: No - Swedish per EMR Debra March is a 39 year old female referred by Dr. Sykes for preconception genetic counseling to discuss her family medical history. She was unaccompanied to the visit today. PRESENTING PROBLEM: Ms. March is a 39 year old female referred for a preconception genetics visit to discuss her family medical history. Specifically, her older son has a maternally inherited 2p16.3 microdeletion and has high functioning autism and speech delays. Additionally, her younger son has a de sonam 22q11.21>q11.22 microduplication and has a history of developmental delays and apraxia (motor, speech). Ms. March brought copies of these results to the visit which will be scanned into her chart if needed for PGT purposes. She presents today to discuss these results, recurrence risks, and genetic testing and screening options. REPRODUCTIVE HISTORY: Currently : No history: 1. 2015, daughter, FT, CS due to position (josefa side-up), no complications 2. 2018, son, FT, RCS, no complications; maternally inherited 366 kb 2p16.3 microdeletion; high functioning autism and speech delays, "will have normal life" . 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 Patient's infertility work-up: Unexplained Partner's infertility work-up: Varicole surgery hx Infertility therapies: Planning for IVF with PGT Parental Screens: CF: No SMA: No Hemoglobinopathies: No; Patient's MCV: 89.0 fL Denominational Diseases: Not at increased risk Other: Yes - Parental follow-up studies were completed for their sons' microarray findings and Ms. March reported the microdeletion was maternally inherited while the microduplication was de sonam. Ms. March's previously had cancer genetic testing which was negative Chromosomal analysis: Patient: No Partner: No Products of conception: No SIGNIFICANT PAST MEDICAL/SURGICAL HISTORIES: Debra: - No major medical concerns Tara: (age 37) - Hodgkin's lymphoma dx 34 s/p chemotherapy and clinical trial - Saw cancer genetics: Common Hereditary Cancers Panel, Myelodysplastic Syndrome/Leukemia Panel with preliminary evidence genes and Lymphoma panel with preliminary evidence genes through [facility] was negative for a pathogenic variant FAMILY HISTORY: A 3-generation pedigree was obtained for the patient and her partner and will be scanned into patient's EMR. Of note: - Genetic and/or Inherited Disease: Yes - Ms. March's older son has a microdeletion and her younger son has a microduplication as noted in the HPI. - Ms. March reported her paternal first-cousin has a daughter with Down syndrome (maternal age 39 at delivery). - Common Disorders: Yes - reported her 's sister has ADHD. - Defects: No - Seizures: No - Recurrent Loss/Infertility: No - ID/DD/Autism: Yes - See HPI regarding Ms. March's sons' histories of autism/delays. She also reported her brother's son may have autism, although he does not have a formal diagnosis. - : No - Other: Yes - Ms. March reported her mother passed from multiple myeloma at 61 (dx. 54). - Ms. March reported her had non-Hodgkin's lymphoma diagnosed at 34, his father passed from AML at age 47, and a paternal aunt had a blood cancer. - Patient's ethnicity: Tristanian, Swedish, Marshallese - Partner's ethnicity: Afghan, [place] Islander - Patient and/or partner did not report -Ghanaian, , Mediterranean, Ashkenazi Denominational and/or Slovak-Algerian/Cajun ancestries unless noted above. - Patient and partner are NOT consanguineous The remainder of the known family history is negative for infertility, recurrent loss, stillbirth, unexplained infant , defects, malformation syndromes, chromosomal abnormalities, metabolic disorders, developmental delay, mental retardation, known or suspected genetic diseases, and consanguinity except as noted above and on the formal pedigree. GENETIC COUNSELING/DISCUSSION: Ms. March is a 39 year old female presenting for preconception genetic counseling as noted in the HPI. 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 March's older son. This microdeletion contains part of the NRXN1 gene. Per the lab report, h (more content not included)... [facility] 08-21-2024 Telephone encounter Note Attempted to reach PT in regards to genetic records Left a vague VM on an unidentified voicemail box. Explained that I would also be following up with a MyChart message that they could respond there or provided the [facility] line for a call back. Kylee Bryan Genetic Counseling Sensitizer [facility] 08-21-2024 Miscellaneous Notes Attempted to reach PT in regards to genetic records Left a vague VM on an unidentified voicemail box. Explained that I would also be following up with a MyChart message that they could respond there or provided the [facility] line for a call back. Kylee Bryan Genetic Counseling Sensitizer documented in this encounter [facility] 08-15-2024 Progress note Formatting of t his note is different from the original. [facility] In Vitro Fertilization Program Date: 08/15/2024 Patient Name: Debra March HISTORY OF PRESENT ILLNESS: Debra March is a 39 year old female with Debra is a 39 year old female with infertility and fibroids. For the past several months, her sons underwent evaluation for developmental delay and Autism. Her oldest son has autism and another son has a genetic condition. One son missing a chromosome and another son has chromosome duplications. She was told that the best way to have a baby is to have IVF and PGT. The genetic records is not available. She would like to freeze her eggs and hope to use the eggs in 6-12 months. Of note, she wa told by her ob when she was much younger that she should not on ocp because her mother has varicose vein and ?blood clots. Prior note Debra March is a 38 year old female with infertility. Possible age-related. Could also be male factor. Last SA showed lower sperm motility. Since the last visit, her had varicocele repaired in August 2023. They would like to discuss options again. June 25, 2023 Prior note Refer here by her PCP. Have 3 children. Having been TTC since 06/2022. 7, 4 and 2 years old. Had miscarriage in November 2022 and was told that she was around 4-5 weeks . 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 Periods used to be q 28-30 days. Now, period q 25-26 days. Obstetric History T3 L3 SAB1 IAB0 Ectopic0 Multiple0 Live Births3 Fertility Evaluations and Treatments: Eval Checklist Results Date Comments HSG Hysteroscopy Laparoscopy OPK (Ovulation Predictor Kit) Ovarian [place] Saline Ultrasound Semen Analysis Ultrasound Other (See comments) CONTRACEPTIVE HISTORY: MENSTRUAL HISTORY: Menarche Age: Length of Cycle: 25-26 days Regular Days: Menstrual Flow: Menstrual Symptoms: Patient's last menstrual period was 07/10/2023 (exact date). PAST MEDICAL HISTORY Diagnosis Date Factor 5 Leiden mutation, heterozygous (HCC) Migraine headache Mixed hypercholesterolemia and hypertriglyceridemia 2015 PAST SURGICAL HISTORY Procedure Laterality Date DELIVERY ONLY 11/02/15,01/09/19 , low transverse x 3 TONSILLECTOMY PRIMARY/SECONDARY Tonsillectomy FAMILY HISTORY Problem Relation Age of Onset Cancer Mother 55 multiple myeloma Hyperlipidemia Father Diabetes Father borderline Hyperlipidemia Brother Breast Cancer Maternal Grandmother Diabetes Maternal Grandmother Heart Maternal Grandmother Heart Maternal Grandfather Cancer Paternal Grandmother Brain Heart Paternal Grandfather Heart Attack Paternal Grandfather ETHNICITY: SART GROUP: MEDICATIONS: Current Outpatient Medications on File Prior to Visit Medication Sig ubrogepant (UBRELVY) 100 mg tablet Take 1 tablet by mouth as needed at onset of migraine. May repeat dose at 2 hours if needed. Max 200 mg per 24 hours. letrozole (FEMARA) 2.5 mg tablet Take 1 tablet by mouth once daily. on cycle days 3-7 No current facility-administered medications on file prior to visit. ALLERGIES: Amoxicillin, Ceftin [Cefuroxime Axetil], Ilosone, Naldecon, Penicillin, Phenylephrine, Zoipyqmhzdl-Gd-Pcfogeldncnbi, Pseudoephedrine, and Red Dye Blood Type: No results found for this basename: [facility] OCCUPATION/EXERCISE: Occupation: Exercise: Partner Information Partner's Name: Tara March Partner's : 04/15/1987 Partner's Partner's Ethnicity: Partner's Race: Medications: pantropazole. Additional Partner Assessment Findings: He has Hodgkin lymphoma 2 years ago s/p chemotherapy and immunotherapy. Last treatment was 07/12. Currently on remission. SA was done a few months ago. Assessment and Plan Debra March is a 39 year old female with infertility and now has two sons with chromosomal abnormality. 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 Long discussion with pt that based on her desires to have another child within a year and her age, it will be in best interest to freeze EMBRYOS and not eggs. Nevertheless, I went over both options with her but focusing on IVF with PGT. TOPICS DISCUSSED: Dropped cycles: Yes Hyperstimulation Syndrome: Yes Ovarian [place]: Yes Freezing eggs/embryos: Yes Potential for no transfer: Yes Surgical procedure and complications: Yes ICSI: yes Number of embryos to transfer: 1 Option for Genetic screening: Yes 10.. Discuss team involved: Yes Additional jarquin points reviewed regarding IVF were as follows: The IVF process with overall risks and benefits were reviewed, including risks of the treatment and risks to offspring. Risks and benefits of specific medications for IVF were reviewed Risks of egg retrieval procedure were reviewed including risk of infection, bleeding, trauma, risks of anesthesia and failure to retrieve any eggs Risks and benefits of IVF and embryo culture were reviewed including failure of fertilization, abnormal embryo development, failure of embryos to develop to the blastocyst stage, lab accidents or damage to eggs or embryos due to human error Risks of embryo transfer including risk of multiple , risk of ectopic and chance of no occurring Risks and benefits of intracytoplasmic sperm injection (ICSI), including lack of fertilization, slightly increased risk of defects, possible increased risk of sex chromosome abnormalities, risk of male infertility in offspring Preimplanatation genetic testing (PGT) was reviewed in detail, including the process in which embryos and biopsied. Indications for PGT were reviewed as well as the types of PGT: testing for aneuploidy (PGT-A), testing for chromosomal structural rearrangements (PGT-SR) and testing for specific genetic mutations (PGT-M). It was reviewed that PGT does not guarantee that a will result and that defects can still occur when PGT results are normal. It was reviewed that there is a possibility that PGT will show that there are no normal embryos to transfer. It was also reviewed that our center currently does not allow transfer of embryos with PGT results that are aneuploid. Risk of misdiagnosis or no result were also reviewed. Risks of embryo biopsy including small risk of damage to the embryo were reviewed. It was also reviewed that there are limited long-term data regarding the health of children conceived from embryos that have been biopsied. Assisted hatching indications and the procedure were reviewed. Oocyte and embryo cryopreservation was reviewed, including the process and the risk of oocytes and embryos not surviving the thaw. Risks of damage or destruction to cryopreserved oocytes and embryos were reviewed, including accidents, power outages, materials issues and human err. Risks to a woman undergoing IVF, including ovarian hyperstimulation syndrome were reviewed as well as possible increased risk of cancer. Risks of also reviewed. A slightly increased risk of defects in babies conceived through IVF was reviewed as well as possible increased risk of imprinting disorders [facility] IVF Treatment Plan: AMH Level/date: 3 - need to be repeated. Sperm Source: Partner Fresh Pretreatment: IVF Pretreatment: None Treatment Protocol: IVF Protocols: GnRH Antagonist Starting Dose: 250 units rFSH or higher pending [facility] If Menopur is not an option, may substitute 10 units low-dose HCG and 75 units rFSH (Gonal F or Follistim) for every 75 units Menopur ordered Supplemental meds: None Trigger: Lupron plus up to 5000 Units HCG if low risk of OHSS Insemination: ICSI PGT: she will need PGT. However, since the genetic report is not available, I do not know if she needs PGT-A, M or SR. Cycle Intent: Cycle Intent: Single intent: Conception within 12 months from one retrieval Plan for embryo transfer within 90 days of egg retrieval? yes If freeze all, is this fertility preservation (delayed transfer > 1 year)? No - planning to transfer embryo(s) from cycle within 12 months of retrieval Genetic Carrier Screening: I will refer her to genetic team to discuss further about genetic carrier screening and her family genetic issues. OK to start OCPs for cycle start timing: No due to please see HPI Comments: pt will let me know what they decide to do. Note: Fertility preservation refers to delaying embryo transfer from this cycle for > 1 year. Embryo banking refers to patients who already have cryopreserved embryos to transfer but are banking additional embryos for future family-building purposes. This visit was conducted as a virtual visit via zoom. I have communicated my name and active licensure. The patient's identity and physical location were verified at the time of this visit. Either the patient or their legal business development representative has been informed of the risks and benefits of -- and alternatives to -- treatment through a remote evaluation and consents to proceed with the evaluation remotely. I spent a total of 60 minutes on the date of the service which included preparing to see the patient, [id number] patient care, completing clinical documentation, and counseling and educating the patient/family/caregiver. Farideh Perez MD August 15, 2024 Farideh Perez MD [facility] 08-15-2024 Consult note Formatting of th is note is different from the original. [facility] In Vitro Fertilization Program Date: 08/15/2024 Patient Name: Debra March HISTORY OF PRESENT ILLNESS: Debra March is a 39 year old female with Debra is a 39 year old female with infertility and fibroids. For the past several months, her sons underwent evaluation for developmental delay and Autism. Her oldest son has autism and another son has a genetic condition. One son missing a chromosome and another son has chromosome duplications. She was told that the best way to have a baby is to have IVF and PGT. The genetic records is not available. She would like to freeze her eggs and hope to use the eggs in 6-12 months. Of note, she wa told by her ob when she was much younger that she should not on ocp because her mother has varicose vein and ?blood clots. Prior note Debra March is a 38 year old female with infertility. Possible age-related. Could also be male factor. Last SA showed lower sperm motility. Since the last visit, her had varicocele repaired in August 2023. They would like to discuss options again. June 25, 2023 Prior note Refer here by her PCP. Have 3 children. Having been TTC since 06/2022. 7, 4 and 2 years old. Had miscarriage in November 2022 and was told that she was around 4-5 weeks . 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 Periods used to be q 28-30 days. Now, period q 25-26 days. Obstetric History T3 L3 SAB1 IAB0 Ectopic0 Multiple0 Live Births3 Fertility Evaluations and Treatments: Eval Checklist Results Date Comments HSG Hysteroscopy Laparoscopy OPK (Ovulation Predictor Kit) Ovarian [place] Saline Ultrasound Semen Analysis Ultrasound Other (See comments) CONTRACEPTIVE HISTORY: MENSTRUAL HISTORY: Menarche Age: Length of Cycle: 25-26 days Regular Days: Menstrual Flow: Menstrual Symptoms: Patient's last menstrual period was 07/10/2023 (exact date). PAST MEDICAL HISTORY Diagnosis Date Factor 5 Leiden mutation, heterozygous (HCC) Migraine headache Mixed hypercholesterolemia and hypertriglyceridemia 2015 PAST SURGICAL HISTORY Procedure Laterality Date DELIVERY ONLY 11/02/15,01/09/19 , low transverse x 3 TONSILLECTOMY PRIMARY/SECONDARY <AGE 12 Tonsillectomy FAMILY HISTORY Problem Relation Age of Onset Cancer Mother 55 multiple myeloma Hyperlipidemia Father Diabetes Father borderline Hyperlipidemia Brother Breast Cancer Maternal Grandmother Diabetes Maternal Grandmother Heart Maternal Grandmother Heart Maternal Grandfather Cancer Paternal Grandmother Brain Heart Paternal Grandfather Heart Attack Paternal Grandfather ETHNICITY: SART GROUP: MEDICATIONS: Current Outpatient Medications on File Prior to Visit Medication Sig ubrogepant (UBRELVY) 100 mg tablet Take 1 tablet by mouth as needed at onset of migraine. May repeat dose at 2 hours if needed. Max 200 mg per 24 hours. letrozole (FEMARA) 2.5 mg tablet Take 1 tablet by mouth once daily. on cycle days 3-7 No current facility-administered medications on file prior to visit. ALLERGIES: Amoxicillin, Ceftin [Cefuroxime Axetil], Ilosone, Naldecon, Penicillin, Phenylephrine, Irkufbxwccj-Yv-Zqknmksxlmgfj, Pseudoephedrine, and Red Dye Blood Type: No results found for this basename: aborhd OCCUPATION/EXERCISE: Occupation: Exercise: Partner Information Partner's Name: Tara March Partner's : 04/15/1987 Partner's Partner's Ethnicity: Partner's Race: Medications: pantropazole. Additional Partner Assessment Findings: He has Hodgkin lymphoma 2 years ago s/p chemotherapy and immunotherapy. Last treatment was 07/12. Currently on remission. SA was done a few months ago. Assessment and Plan Debra March is a 39 year old female with infertility and now has two sons with chromosomal abnormality. 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 Long discussion with pt that based on her desires to have another child within a year and her age, it will be in best interest to freeze EMBRYOS and not eggs. Nevertheless, I went over both options with her but focusing on IVF with PGT. TOPICS DISCUSSED: Dropped cycles: Yes Hyperstimulation Syndrome: Yes Ovarian [place]: Yes Freezing eggs/embryos: Yes Potential for no transfer: Yes Surgical procedure and complications: Yes ICSI: yes Number of embryos to transfer: 1 Option for Genetic screening: Yes 10.. Discuss team involved: Yes Additional jarquin points reviewed regarding IVF were as follows: The IVF process with overall risks and benefits were reviewed, including risks of the treatment and risks to offspring. Risks and benefits of specific medications for IVF were reviewed Risks of egg retrieval procedure were reviewed including risk of infection, bleeding, trauma, risks of anesthesia and failure to retrieve any eggs Risks and benefits of IVF and embryo culture were reviewed including failure of fertilization, abnormal embryo development, failure of embryos to develop to the blastocyst stage, lab accidents or damage to eggs or embryos due to human error Risks of embryo transfer including risk of multiple , risk of ectopic and chance of no occurring Risks and benefits of intracytoplasmic sperm injection (ICSI), including lack of fertilization, slightly increased risk of defects, possible increased risk of sex chromosome abnormalities, risk of male infertility in offspring Preimplanatation genetic testing (PGT) was reviewed in detail, including the process in which embryos and biopsied. Indications for PGT were reviewed as well as the types of PGT: testing for aneuploidy (PGT-A), testing for chromosomal structural rearrangements (PGT-SR) and testing for specific genetic mutations (PGT-M). It was reviewed that PGT does not guarantee that a will result and that defects can still occur when PGT results are normal. It was reviewed that there is a possibility that PGT will show that there are no normal embryos to transfer. It was also reviewed that our center currently does not allow transfer of embryos with PGT results that are aneuploid. Risk of misdiagnosis or no result were also reviewed. Risks of embryo biopsy including small risk of damage to the embryo were reviewed. It was also reviewed that there are limited long-term data regarding the health of children conceived from embryos that have been biopsied. Assisted hatching indications and the procedure were reviewed. Oocyte and embryo cryopreservation was reviewed, including the process and the risk of oocytes and embryos not surviving the thaw. Risks of damage or destruction to cryopreserved oocytes and embryos were reviewed, including accidents, power outages, materials issues and human err. Risks to a woman undergoing IVF, including ovarian hyperstimulation syndrome were reviewed as well as possible increased risk of cancer. Risks of also reviewed. A slightly increased risk of defects in babies conceived through IVF was reviewed as well as possible increased risk of imprinting disorders [facility] IVF Treatment Plan: AMH Level/date: 3 - need to be repeated. Sperm Source: Partner Fresh Pretreatment: IVF Pretreatment: None Treatment Protocol: IVF Protocols: GnRH Antagonist Starting Dose: 250 units rFSH or higher pending [facility] If Menopur is not an option, may substitute 10 units low-dose HCG and 75 units rFSH (Gonal F or Follistim) for every 75 units Menopur ordered Supplemental meds: None Trigger: Lupron plus up to 5000 Units HCG if low risk of OHSS Insemination: ICSI PGT: she will need PGT. However, since the genetic report is not available, I do not know if she needs PGT-A, M or SR. Cycle Intent: Cycle Intent: Single intent: Conception within 12 months from one retrieval Plan for embryo transfer within 90 days of egg retrieval? yes If freeze all, is this fertility preservation (delayed transfer > 1 year)? No - planning to transfer embryo(s) from cycle within 12 months of retrieval Genetic Carrier Screening: I will refer her to genetic team to discuss further about genetic carrier screening and her family genetic issues. OK to start OCPs for cycle start timing: No due to please see HPI Comments: pt will let me know what they decide to do. Note: Fertility preservation refers to delaying embryo transfer from this cycle for > 1 year. Embryo banking refers to patients who already have cryopreserved embryos to transfer but are banking additional embryos for future family-building purposes. This visit was conducted as a virtual visit via zoom. I have communicated my name and active licensure. The patient's identity and physical location were verified at the time of this visit. Either the patient or their legal business development representative has been informed of the risks and benefits of -- and alternatives to -- treatment through a remote evaluation and consents to proceed with the evaluation remotely. I spent a total of 60 minutes on the date of the service which included preparing to see the patient, [id number] patient care, completing clinical documentation, and counseling and educating the patient/family/caregiver. Farideh Perez MD August 15, 2024 Farideh Perez MD documented in this encounter [facility] 08-15-2024 Plan of care note Debra March is a 39 year old female with infertility and now has two sons with chromosomal abnormality. 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 Long discussion with pt that based on her desires to have another child within a year and her age, it will be in best interest to freeze EMBRYOS and not eggs. Nevertheless, I went over both options with her but focusing on IVF with PGT. TOPICS DISCUSSED: Dropped cycles: Yes Hyperstimulation Syndrome: Yes Ovarian [place]: Yes Freezing eggs/embryos: Yes Potential for no transfer: Yes Surgical procedure and complications: Yes ICSI: yes Number of embryos to transfer: 1 Option for Genetic screening: Yes 10.. Discuss team involved: Yes Additional jarquin points reviewed regarding IVF were as follows: The IVF process with overall risks and benefits were reviewed, including risks of the treatment and risks to offspring. Risks and benefits of specific medications for IVF were reviewed Risks of egg retrieval procedure were reviewed including risk of infection, bleeding, trauma, risks of anesthesia and failure to retrieve any eggs Risks and benefits of IVF and embryo culture were reviewed including failure of fertilization, abnormal embryo development, failure of embryos to develop to the blastocyst stage, lab accidents or damage to eggs or embryos due to human error Risks of embryo transfer including risk of multiple , risk of ectopic and chance of no occurring Risks and benefits of intracytoplasmic sperm injection (ICSI), including lack of fertilization, slightly increased risk of defects, possible increased risk of sex chromosome abnormalities, risk of male infertility in offspring Preimplanatation genetic testing (PGT) was reviewed in detail, including the process in which embryos and biopsied. Indications for PGT were reviewed as well as the types of PGT: testing for aneuploidy (PGT-A), testing for chromosomal structural rearrangements (PGT-SR) and testing for specific genetic mutations (PGT-M). It was reviewed that PGT does not guarantee that a will result and that defects can still occur when PGT results are normal. It was reviewed that there is a possibility that PGT will show that there are no normal embryos to transfer. It was also reviewed that our center currently does not allow transfer of embryos with PGT results that are aneuploid. Risk of misdiagnosis or no result were also reviewed. Risks of embryo biopsy including small risk of damage to the embryo were reviewed. It was also reviewed that there are limited long-term data regarding the health of children conceived from embryos that have been biopsied. Assisted hatching indications and the procedure were reviewed. Oocyte and embryo cryopreservation was reviewed, including the process and the risk of oocytes and embryos not surviving the thaw. Risks of damage or destruction to cryopreserved oocytes and embryos were reviewed, including accidents, power outages, materials issues and human err. Risks to a woman undergoing IVF, including ovarian hyperstimulation syndrome were reviewed as well as possible increased risk of cancer. Risks of also reviewed. A slightly increased risk of defects in babies conceived through IVF was reviewed as well as possible increased risk of imprinting disorders [facility] IVF Treatment Plan: AMH Level/date: 3 - need to be repeated. Sperm Source: Partner Fresh Pretreatment: IVF Pretreatment: None Treatment Protocol: IVF Protocols: GnRH Antagonist Starting Dose: 250 units rFSH or higher pending [facility] If Menopur is not an option, may substitute 10 units low-dose HCG and 75 units rFSH (Gonal F or Follistim) for every 75 units Menopur ordered Supplemental meds: None Trigger: Lupron plus up to 5000 Units HCG if low risk of OHSS Insemination: ICSI PGT: she will need PGT. However, since the genetic report is not available, I do not know if she needs PGT-A, M or SR. Cycle Intent: Cycle Intent: Single intent: Conception within 12 months from one retrieval Plan for embryo transfer within 90 days of egg retrieval? yes If freeze all, is this fertility preservation (delayed transfer > 1 year)? No - planning to transfer embryo(s) from cycle within 12 months of retrieval Genetic Carrier Screening: I will refer her to genetic team to discuss further about genetic carrier screening and her family genetic issues. OK to start OCPs for cycle start timing: No due to please see HPI Comments: pt will let me know what they decide to do. Note: Fertility preservation refers to delaying embryo transfer from this cycle for > 1 year. Embryo banking refers to patients who already have cryopreserved embryos to transfer but are banking additional embryos for future family-building purposes. This visit was conducted as a virtual visit via zoom. I have communicated my name and active licensure. The patient's identity and physical location were verified at the time of this visit. Either the patient or their legal business development representative has been informed of the risks and benefits of -- and alternatives to -- treatment through a remote evaluation and consents to proceed with the evaluation remotely. I spent a total of 60 minutes on the date of the service which included preparing to see the patient, [id number] patient care, completing clinical documentation, and counseling and educating the patient/family/caregiver. Farideh Perez MD August 15, 2024 [facility] 08-15-2024 Miscellaneous Notes Debra March is a 39 year old female with infertility and now has two sons with chromosomal abnormality. 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 Long discussion with pt that based on her desires to have another child within a year and her age, it will be in best interest to freeze EMBRYOS and not eggs. Nevertheless, I went over both options with her but focusing on IVF with PGT. TOPICS DISCUSSED: Dropped cycles: Yes Hyperstimulation Syndrome: Yes Ovarian [place]: Yes Freezing eggs/embryos: Yes Potential for no transfer: Yes Surgical procedure and complications: Yes ICSI: yes Number of embryos to transfer: 1 Option for Genetic screening: Yes 10.. Discuss team involved: Yes Additional jarquin points reviewed regarding IVF were as follows: The IVF process with overall risks and benefits were reviewed, including risks of the treatment and risks to offspring. Risks and benefits of specific medications for IVF were reviewed Risks of egg retrieval procedure were reviewed including risk of infection, bleeding, trauma, risks of anesthesia and failure to retrieve any eggs Risks and benefits of IVF and embryo culture were reviewed including failure of fertilization, abnormal embryo development, failure of embryos to develop to the blastocyst stage, lab accidents or damage to eggs or embryos due to human error Risks of embryo transfer including risk of multiple , risk of ectopic and chance of no occurring Risks and benefits of intracytoplasmic sperm injection (ICSI), including lack of fertilization, slightly increased risk of defects, possible increased risk of sex chromosome abnormalities, risk of male infertility in offspring Preimplanatation genetic testing (PGT) was reviewed in detail, including the process in which embryos and biopsied. Indications for PGT were reviewed as well as the types of PGT: testing for aneuploidy (PGT-A), testing for chromosomal structural rearrangements (PGT-SR) and testing for specific genetic mutations (PGT-M). It was reviewed that PGT does not guarantee that a will result and that defects can still occur when PGT results are normal. It was reviewed that there is a possibility that PGT will show that there are no normal embryos to transfer. It was also reviewed that our center currently does not allow transfer of embryos with PGT results that are aneuploid. Risk of misdiagnosis or no result were also reviewed. Risks of embryo biopsy including small risk of damage to the embryo were reviewed. It was also reviewed that there are limited long-term data regarding the health of children conceived from embryos that have been biopsied. Assisted hatching indications and the procedure were reviewed. Oocyte and embryo cryopreservation was reviewed, including the process and the risk of oocytes and embryos not surviving the thaw. Risks of damage or destruction to cryopreserved oocytes and embryos were reviewed, including accidents, power outages, materials issues and human err. Risks to a woman undergoing IVF, including ovarian hyperstimulation syndrome were reviewed as well as possible increased risk of cancer. Risks of also reviewed. A slightly increased risk of defects in babies conceived through IVF was reviewed as well as possible increased risk of imprinting disorders [facility] IVF Treatment Plan: AMH Level/date: 3 - need to be repeated. Sperm Source: Partner Fresh Pretreatment: IVF Pretreatment: None Treatment Protocol: IVF Protocols: GnRH Antagonist Starting Dose: 250 units rFSH or higher pending [facility] If Menopur is not an option, may substitute 10 units low-dose HCG and 75 units rFSH (Gonal F or Follistim) for every 75 units Menopur ordered Supplemental meds: None Trigger: Lupron plus up to 5000 Units HCG if low risk of OHSS Insemination: ICSI PGT: she will need PGT. However, since the genetic report is not available, I do not know if she needs PGT-A, M or SR. Cycle Intent: Cycle Intent: Single intent: Conception within 12 months from one retrieval Plan for embryo transfer within 90 days of egg retrieval? yes If freeze all, is this fertility preservation (delayed transfer > 1 year)? No - planning to transfer embryo(s) from cycle within 12 months of retrieval Genetic Carrier Screening: I will refer her to genetic team to discuss further about genetic carrier screening and her family genetic issues. OK to start OCPs for cycle start timing: No due to please see HPI Comments: pt will let me know what they decide to do. Note: Fertility preservation refers to delaying embryo transfer from this cycle for > 1 year. Embryo banking refers to patients who already have cryopreserved embryos to transfer but are banking additional embryos for future family-building purposes. This visit was conducted as a virtual visit via zoom. I have communicated my name and active licensure. The patient's identity and physical location were verified at the time of this visit. Either the patient or their legal business development representative has been informed of the risks and benefits of -- and alternatives to -- treatment through a remote evaluation and consents to proceed with the evaluation remotely. I spent a total of 60 minutes on the date of the service which included preparing to see the patient, [id number] patient care, completing clinical documentation, and counseling and educating the patient/family/caregiver. Farideh Perez MD August 15, 2024 documented in this encounter [facility] 08-15-2024 Instructions Eder Sykes MD - 08/15/2024 9:07 AM EDT documented in this encounter [facility] 08-08-2024 Telephone encounter Note Called pt x 1, no answer and VM full. Per message from IVF RN yesterday - needs to make appointment with [facility] physician for consult to review. I will send a follow up message to the patient via [employer]. Closing this encounter. Duarte Verde MA August 08, 2024 11:00 AM [facility] 08-08-2024 Miscellaneous Notes Called pt x 1, no answer and VM full. Per message from IVF RN yesterday - needs to make appointment with [facility] physician for consult to review. I will send a follow up message to the patient via [employer]. Closing this encounter. Duarte Verde MA August 08, 2024 11:00 AM IVF Patient has questions about freezing eggs and next steps. documented in this encounter [facility] 08-07-2024 Telephone encounter Note IVF Patient has questions about freezing eggs and next steps. [facility] 08-07-2024 Telephone encounter Note Mychart sent to patient and instructed to make appointment with [facility] physician for consult. Sofy Dodson RN August 07, 2024 12:22 PM [facility] 08-07-2024 Miscellaneous Notes Mychart sent to patient and instructed to make appointment with [facility] physician for consult. Sofy Dodson RN August 07, 2024 12:22 PM IVF Patient is calling in wanting information on setting up a appointment to freeze eggs. documented in this encounter [facility] 08-06-2024 Telephone encounter Note IVF Patient is calling in wanting information on setting up a appointment to freeze eggs. [facility] 07-24-2024 History of Present illness Narrative Images from the original note were not included. Headache and Facial [facility] [place] [address] [place] [address] I have communicated my name and active licensure. The patient's identity and physical location were verified at the time of this visit. Either the patient or their legal business development representative has been informed of the risks and benefits of -- and alternatives to -- treatment through a remote evaluation and consents to proceed with the evaluation remotely. CC: Migraine Virtual Follow-up Visit Last visit: 10/25/2023 (Prachi Gaytan CNP) - medications continued Interval History: Reports that she has been doing well Headaches are stable, occurring 3-5 days per month Some increased stress recently, they are moving and looking for a house Ubrelvy is effective when taken early. Struggles a bit with wake up migraine where she usually doesn't;t get as complete relief. Headache days per month: 3-5 Headache free days per month: 25 Current Headache Regimen: Preventative: none Abortive: ubrelvy Prior Therapies Duration of Use Dose Side effect Analgesic Butalbital/acetaminophen/caffeine (Fioricet) no benefit Anti-Migraine Lasmiditan (Reyvow) palpitations Rizatriptan (Maxalt) palpitations Sumatriptan (Imitrex, Sumavel) palpitations Zolmitriptan (Zomig) palpitations GEPANTS Ubrogepant (Ubrelvy) Over the Counter Medications Acetaminophen (Tylenol) Acetaminophen/Aspirin/Caffeine (Excedrin, Goody s) Naproxen sodium (Aleve) KP review: HEADACHE SCORES: 04/05/2023 10/25/2023 07/24/2024 Headache Questions ER visits since last office visit: 1 1 Hospital stays since last office visit 0 0 Limited ADLs in the last month: 3 3 4 Days missed from work or school in the last month: 0 0 Days headache pain free in the last month: 25 20 25 Days per month with ALL of the following symptoms - decreased productivity, light sensitivity and nausea: 3 3 4 Initial improvement of headache after botox injection at last visit: Not applicable, I did not have a botox injection at my last visit Not applicable, I did not have a botox injection at my last visit PRN medication usage in the last month: 5 4 Patient impression of improvement since last visit: Much improved No change No change 04/05/2023 10/25/2023 07/24/2024 HIT-6 HIT-6 56 (Substantial impact) 66 (Severe impact) 60 (Severe impact) 10/25/2023 03/15/2024 07/24/2024 DIANA - 2/7 SCORES DIANA-2 Score 4 6 2 DIANA-7 Score 9 18 04/05/2023 10/25/2023 07/24/2024 Migraine Specific QOL - Higher scores indicate better HRQL Role Function-Restrictive Transformed Score (range: 0-100) 82.86 57.14 80 Role Function-Preventive Transformed Score (range: 0-100) 80 45 80 Emotional Function Transformed Score (range: 0-100) 93.33 53.33 80 04/05/2023 10/25/2023 07/24/2024 PHQ-9 Score 0 2 0 Limited Physical Exam on VV: Vital Signs: LMP 07/10/2023 (Exact Date) GENERAL: well appearing, in no acute distress, alert HEAD: Normocephalic/atraumatic. NEUROLOGICAL: Mental Status: Alert, oriented to person, place and time, Follows commands, and Speech fluent and appropriate. Cranial Nerves: face symmetric, no dysarthria, hearing grossly intact Motor: moves all extremities equally IMPRESSION: Episodic Migraine Without Aura Menstrual Migraine Headaches stable on current regimen. Ubrelvy continues to be effective PLAN: Continue Ubrelvy prn migraine -discussed prodrome trial and try to take early at prodrome signs Follow-up: 1 year I spent a total of 10 minutes on the date of the service which included preparing to see the patient, [id number] patient care, completing clinical documentation, obtaining and/or reviewing separately obtained history, performing a medically appropriate examination, counseling and educating the patient/family/caregiver, and ordering medications, tests, or procedures. The above plan discussed with the patient. All questions answered. The patient verbalized understanding. Medical decision making was high complexity due to patient's multiple symptoms including Headache and pain, and counseling about diet, medications, and usp implications. The patient has my contact information and my chart sign up information. Catarina Manzo MD Neurology Staff 07/24/2024 Debra March has been previously approved for an Oral Calcitonin Gene-Related Peptide Receptor Antagonist (GEPANT) Ubrogepant for the rescue treatment of migraine. The patient has demonstrated the following: Provider attests patient has had a positive clinical response: Yes Patient will not use with another Oral Calcitonin Gene-Related Peptide Receptor Antagonist (GEPANT): Yes Patient's quality of life and ability to perform ADLs has improved: Yes The patient has tried and failed the following : We suggest the patient continue treatment with GEPANT Ubrogepant. The following preventative medications have been tried for three or more months without benefit: The following abortive medications have been tried but require high frequency use which can lead to Medication Overuse Headache: Analgesic Butalbital/acetaminophen/caffeine (Fioricet) no benefit Anti-Migraine Lasmiditan (Reyvow) palpitations Rizatriptan (Maxalt) palpitations Sumatriptan (Imitrex, Sumavel) palpitations Zolmitriptan (Zomig) palpitations GEPANTS Ubrogepant (Ubrelvy) Over the Counter Medications Acetaminophen (Tylenol) Acetaminophen/Aspirin/Caffeine (Excedrin, Goody s) Naproxen sodium (Aleve) documented in this encounter [facility] 07-24-2024 Note HNO ID: [id number] Author: CATARINA MANZO MD Service: ? Author Type: Physician Type: Progress Notes Filed: 07/24/2024 09:51 Note Text: Headache and Facial Pain [facility] [place] [address], [place] [address] [address] I have communicated my name and active licensure. The patient's identity and physical location were verified at the time of this visit. Either the patient or their legal business development representative has been informed of the risks and benefits of -- and alternatives to -- treatment through a remote evaluation and consents to proceed with the evaluation remotely. CC: Migraine Virtual Follow-up Visit Last visit: 10/25/2023 (Prachi Gaytan CNP) - medications continued Interval History: Reports that she has been doing well Headaches are stable, occurring 3-5 days per month Some increased stress recently, they are moving and looking for a house Ubrelvy is effective when taken early. Struggles a bit with wake up migraine where she usually doesn't;t get as complete relief. Headache days per month: 3-5 Headache free days per month: 25 Current Headache Regimen: Preventative: none Abortive: ubrelvy Prior Therapies Duration of Use Dose Side effect Analgesic Butalbital/acetaminophen/caffeine (Fioricet) no benefit Anti-Migraine Lasmiditan (Reyvow) palpitations Rizatriptan (Maxalt) palpitations Sumatriptan (Imitrex, Sumavel) palpitations Zolmitriptan (Zomig) palpitations GEPANTS Ubrogepant (Ubrelvy) Over the Counter Medications Acetaminophen (Tylenol) Acetaminophen/Aspirin/Caffeine (Excedrin, Goody?s) Naproxen sodium (Aleve) KP review: HEADACHE SCORES: 04/05/2023 10/25/2023 07/24/2024 Headache Questions ER visits since last office visit: 1 1 Hospital stays since last office visit 0 0 Limited ADLs in the last month: 3 3 4 Days missed from work or school in the last month: 0 0 Days headache pain free in the last month: 25 20 25 Days per month with ALL of the following symptoms - decreased productivity, light sensitivity and nausea: 3 3 4 Initial improvement of headache after botox injection at last visit: Not applicable, I did not have a botox injection at my last visit Not applicable, I did not have a botox injection at my last visit PRN medication usage in the last month: 5 4 Patient impression of improvement since last visit: Much improved No change No change 04/05/2023 10/25/2023 07/24/2024 HIT-6 HIT-6 56 (Substantial impact) 66 (Severe impact) 60 (Severe impact) 10/25/2023 03/15/2024 07/24/2024 DIANA - 2/7 SCORES DIANA-2 Score 4 6 2 DIANA-7 Score 9 18 04/05/2023 10/25/2023 07/24/2024 Migraine Specific QOL - Higher scores indicate better HRQL Role Function-Restrictive Transformed Score (range: 0-100) 82.86 57.14 80 Role Function-Preventive Transformed Score (range: 0-100) 80 45 80 Emotional Function Transformed Score (range: 0-100) 93.33 53.33 80 04/05/2023 10/25/2023 07/24/2024 PHQ-9 Score 0 2 0 Limited Physical Exam on VV: Vital Signs: LMP 07/10/2023 (Exact Date) GENERAL: well appearing, in no acute distress, alert HEAD: Normocephalic/atraumatic. NEUROLOGICAL: Mental Status: Alert, oriented to person, place and time, Follows commands, and Speech fluent and appropriate. Cranial Nerves: face symmetric, no dysarthria, hearing grossly intact Motor: moves all extremities equally IMPRESSION: Episodic Migraine Without Aura Menstrual Migraine Headaches stable on current regimen. Ubrelvy continues to be effective PLAN: Continue Ubrelvy prn migraine -discussed prodrome trial and try to take early at prodrome signs Follow-up: 1 year I spent a total of 10 minutes on the date of the service which included preparing to see the patient, [id number] patient care, completing clinical documentation, obtaining and/or reviewing separately obtained history, performing a medically appropriate examination, counseling and educating the patient/family/caregiver, and ordering medications, tests, or procedures. The above plan discussed with the patient. All questions answered. The patient verbalized understanding. 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 The patient has my contact information and my chart sign up information. Catarina Manzo MD Neurology Staff 07/24/2024 Debra March has been previously approved for an Oral Calcitonin Gene-Related Peptide Receptor Antagonist (GEPANT) Ubrogepant for the rescue treatment of migraine. The patient has demonstrated the following: Provider attests patient has had a positive clinical response: Yes Patient will not use with another Oral Calcitonin Gene-Related Peptide Receptor Antagonist (GEPANT): Yes Patient's quality of life and ability to perform ADLs has improved: Yes The patient has tried and failed the following : (more content not included)... [facility] 06-30-2024 Telephone encounter Note The following approved medication requests have been transmitted electronically. Requested Prescriptions Signed Prescriptions Disp Refills ubrogepant (UBRELVY) 100 mg tablet 16 tablet 5 Sig: Take 1 tablet by mouth as needed at onset of migraine. May repeat dose at 2 hours if needed. Max 200 mg per 24 hours. Authorizing Provider: BRIANNA GAYTAN APRN.CNP [facility] 06-30-2024 Miscellaneous Notes The following approved medication requests have been transmitted electronically. Requested Prescriptions Signed Prescriptions Disp Refills ubrogepant (UBRELVY) 100 mg tablet 16 tablet 5 Sig: Take 1 tablet by mouth as needed at onset of migraine. May repeat dose at 2 hours if needed. Max 200 mg per 24 hours. Authorizing Provider: BRIANNA GAYTAN APRN.CNP Requesting refills as follows: Requested Prescriptions Pending Prescriptions Disp Refills ubrogepant (UBRELVY) 100 mg tablet 16 tablet 5 Sig: Take 1 tablet by mouth as needed at onset of migraine. May repeat dose at 2 hours if needed. Max 200 mg per 24 hours. Last visit Visit date 10/25/2023 with Brianna Gaytan CNP Next scheduled Visit date not found documented in this encounter [facility] 06-30-2024 Telephone encounter Note Requesting refills as follows: Requested Prescriptions Pending Prescriptions Disp Refills ubrogepant (UBRELVY) 100 mg tablet 16 tablet 5 Sig: Take 1 tablet by mouth as needed at onset of migraine. May repeat dose at 2 hours if needed. Max 200 mg per 24 hours. Last visit Visit date 10/25/2023 with Brianna Gaytan CNP Next scheduled Visit date not found [facility] 04-30-2024 Telephone encounter Note Pt notified. Pt advises that she di give front sight attacher written report to be scanned in and she did get the images on a cd and took it to the [facility] to be scanned into her chart. Pt advises that she is just going to keep her diagnostic mammogram appointment at [place] on 05/06 d/t she didn't think she would get a sooner appointment at [facility] in [place]. Advised her to also bring those results in to have them scanned into her chart. Pt verbalizes understanding. She advises that if she does have anything wrong she would seek treatment at [facility]. Saray Garcia LPN [facility] 04-30-2024 Miscellaneous Notes Pt notified. Pt advises that she di give front sight attacher written report to be scanned in and she did get the images on a cd and took it to the [facility] to be scanned into her chart. Pt advises that she is just going to keep her diagnostic mammogram appointment at [place] on 05/06 d/t she didn't think she would get a sooner appointment at [facility] in [place]. Advised her to also bring those results in to have them scanned into her chart. Pt verbalizes understanding. She advises that if she does have anything wrong she would seek treatment at [facility]. Saray Garcia LPN Agree with below Please notify patient To have them scanned in . So the radiologist has them to compare. Pt came in and gave PSS the report for her Mammogram screening that was done in [place]. They are in the scanned documents folder. What is the easiest way for patient to give us her images? Please advise. Patient had a mammogram complete at [place] and she was called back for a diagnostic mammogram. She wants to complete at [facility]. Did explain that we would need the report and images in order to order diagnostic mammogram and to compare to images. documented in this encounter [facility] 04-30-2024 Telephone encounter Note Agree with below Please notify patient [facility] 04-28-2024 Telephone encounter Note To have them scanned in . So the radiologist has them to compare. [facility] 04-28-2024 Telephone encounter Note Pt came in and gave PSS the report for her Mammogram screening that was done in [place]. They are in the scanned documents folder. What is the easiest way for patient to give us her images? Please advise. [facility] 04-28-2024 Telephone encounter Note Patient had a mammogram complete at [place] and she was called back for a diagnostic mammogram. She wants to complete at [facility]. Did explain that we would need the report and images in order to order diagnostic mammogram and to compare to images. [facility] 03-15-2024 Note HNO ID: [id number] Author: FRANTZ BENSON, DO Service: ? Author Type: Physician Type: Progress Notes Filed: 03/15/2024 12:49 Note Text: CC: Debra March is a 38 year old female who presents to the office for follow up HPI: At last OFFICE VISIT 2 months ago virtual visit on 01/18/24 She has concerns that her 2 sons have autism. She has been under a lot of stress with trying to get her sons into the right specialists for evaluation for Autism and the specialists are concerned that both of her sons do have Autism. Her has recently completed chemotherapy and treatment for Hodgkin's lymphoma. She is very concerned that there is an environmental exposure that is present in their home or around their neighborhood that cold be the precipitating factor for her husbands cancer and the son's Autism. She feels overwhelmed at times. She denies any SI or HI. She is taking Lexapro 5 mg as prescribed without SE to medication. Currently She has been able to determine that her youngest son doesn't have Autism but has Apraxia. She is working with Speech therapy to help him. She has had mixed opinions on her middle child, other son, on whether or not he has mold toxicity and ADD vs. Autism disorder or intellectual delay. She is really working with specialists in functional medicine [place] to help her sons. She wants people to know that she just cares about what is best for her children. She and her family have moved out of their current home due to above mold/environmental health concerns and they are living with her father, which is going fine without concerns. She doesn't want to be taking the Lexapro- she overall feels that she is coping with her anxiety okay without being on it. She has a lot of support from her dad as well as her . No SI or HI. She denies depression symptoms. PAST MEDICAL HISTORY Diagnosis Date Factor 5 Leiden mutation, heterozygous (HCC) Migraine headache Mixed hypercholesterolemia and hypertriglyceridemia 2015 PAST SURGICAL HISTORY Procedure Laterality Date DELIVERY ONLY 11/02/15,01/09/19 , low transverse x 3 TONSILLECTOMY PRIMARY/SECONDARY Tonsillectomy Current Outpatient Medications Medication Sig ubrogepant (UBRELVY) 100 mg tablet Take 1 tablet by mouth as needed at onset of migraine. May repeat dose at 2 hours if needed. Max 200 mg per 24 hours. letrozole (FEMARA) 2.5 mg tablet Take 1 tablet by mouth once daily. on cycle days 3-7 No current facility-administered medications for this visit. ALLERGIES Allergen Reactions Amoxicillin Rash Ceftin [Cefuroxime * GI Upset Vomiting and diarrhea Ilosone Rash Naldecon Other: See Comments Penicillin Rash Phenylephrine Other: See Comments hallucinations [id number]* Other: See Comments hallucinations Pseudoephedrine Other: See Comments hallucinations Red Dye Other: See Comments hallucinations Social History Tobacco Use Smoking status: Never Smokeless tobacco: Never Vaping Use Vaping status: Never Used Substance Use Topics Alcohol use: Not Currently Drug use: No ROS: See HPI PE: BP 120/64 Pulse 86 Resp 14 Wt 180 lb (81.6kg) SpO2 97% LMP 07/10/2023 Gen: AANDOX3, NAD, non-toxic appearing, mildly anxious, well dressed, no distress HEENT: PERRLA, EOMs intact b/l, nares without drainage, pharynx without erythema, exudate, lesions, or drainage. Uvula midline. Neck: No LAD, no thyromegaly, no meningismus. CV: RRR, no murmur Lungs: CTA b/l, no wheezing Skin: No rashes, lesions, or wounds on exposed skin. No edema, normal pulses ASSESSMENT/PLAN: 1. Acute reaction to situational stress - ICD9: 308.9, ICD10: F43.0 (primary diagnosis) She has stopped her lexapro Okay to consider prozac or alternative if she is interested in this. Also no SI or HI. No depression symptoms She seems appropriately concerned about both of her son's wellbeing and health 2. Encounter for screening examination for other mental health and behavioral disorders - ICD9: V79.8, ICD10: Z13.39 She has stopped her lexapro Okay to consider prozac or alternative if she is interested in this. Also no SI or HI. No depression symptoms She seems appropriately concerned about both of her son's wellbeing and health - ANXIETY SCREENING 3. Situational anxiety - ICD9: 300.09, ICD10: F41.8 She has stopped her lexapro Okay to consider prozac or alternative if she is interested in this. Also no SI or HI. No depression symptoms She seems appropriately concerned about both of her son's wellbeing and health Frantz Benson DO I spent 35 minutes in the visit, with more than 50% of the total [id number] time of the visit in counseling / coordination of care. Return if no improvement. Follow up with Frantz Benson DO. To ER if develops chest pain, shortness of breath. Discussed risks, benefits, alternatives, and potential side effects of med (more content not included)... [facility] 03-15-2024 History of Present illness Narrative CC: Debra March is a 38 year old female who presents to the office for follow up HPI: At last OFFICE VISIT 2 months ago virtual visit on 01/18/24 She has concerns that her 2 sons have autism. She has been under a lot of stress with trying to get her sons into the right specialists for evaluation for Autism and the specialists are concerned that both of her sons do have Autism. Her has recently completed chemotherapy and treatment for Hodgkin's lymphoma. She is very concerned that there is an environmental exposure that is present in their home or around their neighborhood that cold be the precipitating factor for her husbands cancer and the son's Autism. She feels overwhelmed at times. She denies any SI or HI. She is taking Lexapro 5 mg as prescribed without SE to medication. Currently She has been able to determine that her youngest son doesn't have Autism but has Apraxia. She is working with Speech therapy to help him. She has had mixed opinions on her middle child, other son, on whether or not he has mold toxicity and ADD vs. Autism disorder or intellectual delay. She is really working with specialists in functional medicine [place] to help her sons. She wants people to know that she just cares about what is best for her children. She and her family have moved out of their current home due to above mold/environmental health concerns and they are living with her father, which is going fine without concerns. She doesn't want to be taking the Lexapro- she overall feels that she is coping with her anxiety okay without being on it. She has a lot of support from her dad as well as her . No SI or HI. She denies depression symptoms. PAST MEDICAL HISTORY Diagnosis Date Factor 5 Leiden mutation, heterozygous (HCC) Migraine headache Mixed hypercholesterolemia and hypertriglyceridemia 2015 PAST SURGICAL HISTORY Procedure Laterality Date DELIVERY ONLY 11/02/15,01/09/19 , low transverse x 3 TONSILLECTOMY PRIMARY/SECONDARY <AGE 12 Tonsillectomy Current Outpatient Medications Medication Sig ubrogepant (UBRELVY) 100 mg tablet Take 1 tablet by mouth as needed at onset of migraine. May repeat dose at 2 hours if needed. Max 200 mg per 24 hours. letrozole (FEMARA) 2.5 mg tablet Take 1 tablet by mouth once daily. on cycle days 3-7 No current facility-administered medications for this visit. ALLERGIES Allergen Reactions Amoxicillin Rash Ceftin [Cefuroxime * GI Upset Vomiting and diarrhea Ilosone Rash Naldecon Other: See Comments Penicillin Rash Phenylephrine Other: See Comments hallucinations Jdsppcfzgnq-Fo-Nyqf* Other: See Comments hallucinations Pseudoephedrine Other: See Comments hallucinations Red Dye Other: See Comments hallucinations Social History Tobacco Use Smoking status: Never Smokeless tobacco: Never Vaping Use Vaping status: Never Used Substance Use Topics Alcohol use: Not Currently Drug use: No ROS: See HPI PE: BP 120/64 Pulse 86 Resp 14 Wt 180 lb (81.6kg) SpO2 97% LMP 07/10/2023 Gen: A&OX3, NAD, non-toxic appearing, mildly anxious, well dressed, no distress HEENT: PERRLA, EOMs intact b/l, nares without drainage, pharynx without erythema, exudate, lesions, or drainage. Uvula midline. Neck: No LAD, no thyromegaly, no meningismus. CV: RRR, no murmur Lungs: CTA b/l, no wheezing Skin: No rashes, lesions, or wounds on exposed skin. No edema, normal pulses ASSESSMENT/PLAN: 1. Acute reaction to situational stress - ICD9: 308.9, ICD10: F43.0 (primary diagnosis) She has stopped her lexapro Okay to consider prozac or alternative if she is interested in this. Also no SI or HI. No depression symptoms She seems appropriately concerned about both of her son's wellbeing and health 2. Encounter for screening examination for other mental health and behavioral disorders - ICD9: V79.8, ICD10: Z13.39 She has stopped her lexapro Okay to consider prozac or alternative if she is interested in this. Also no SI or HI. No depression symptoms She seems appropriately concerned about both of her son's wellbeing and health - ANXIETY SCREENING 3. Situational anxiety - ICD9: 300.09, ICD10: F41.8 She has stopped her lexapro Okay to consider prozac or alternative if she is interested in this. Also no SI or HI. No depression symptoms She seems appropriately concerned about both of her son's wellbeing and health Frantz Benson DO I spent 35 minutes in the visit, with more than 50% of the total [id number]-xima time of the visit in counseling / coordination of care. Return if no improvement. Follow up with Frantz Benson DO. To ER if develops chest pain, shortness of breath. Discussed risks, benefits, alternatives, and potential side effects of medications. Patient/Guardian expressed understanding and agreed with the plan. See patient instructions. Frantz Benson DO [address] [place] [address] documented in this encounter [facility] 01-18-2024 History of Present illness Narrative VIRTUAL VISIT PROGRESS NOTE This is a virtual visit using MedTel24 Zoom Video Visit. It required patient-provider interaction for the medical decision making as documented below. I have communicated my name and active licensure. The patient's identity and physical location were verified at the time of this visit. Either the patient or their legal business development representative has been informed of the risks and benefits of -- and alternatives to -- treatment through a remote evaluation and consents to proceed with the evaluation remotely. Debra March is a 38 year old female seen for follow up She has concerns that her 2 sons have autism. She has been under a lot of stress with trying to get her sons into the right specialists for evaluation for Autism and the specialists are concerned that both of her sons do have Autism. Her has recently completed chemotherapy and treatment for Hodgkin's lymphoma. She is very concerned that there is an environmental exposure that is present in their home or around their neighborhood that cold be the precipitating factor for her husbands cancer and the son's Autism. She feels overwhelmed at times. She denies any SI or HI. She is taking Lexapro 5 mg as prescribed without SE to medication. HISTORY REVIEWED (electronic chart updated): PAST MEDICAL HISTORY No date: Factor 5 Leiden mutation, heterozygous (HCC) No date: Migraine headache 2016: Mixed hypercholesterolemia and hypertriglyceridemia PAST SURGICAL HISTORY 11/02/15,01/09/19: DELIVERY ONLY Comment: , low transverse x 3 No date: TONSILLECTOMY PRIMARY/SECONDARY <AGE 12 Comment: Tonsillectomy FAMILY HISTORY Problem Relation Age of Onset Cancer Mother 55 multiple myeloma Hyperlipidemia Father Diabetes Father borderline Hyperlipidemia Brother Breast Cancer Maternal Grandmother Diabetes Maternal Grandmother Heart Maternal Grandmother Heart Maternal Grandfather Cancer Paternal Grandmother Brain Heart Paternal Grandfather Heart Attack Paternal Grandfather Social History Tobacco Use Smoking status: Never Smokeless tobacco: Never Vaping Use Vaping status: Never Used Substance Use Topics Alcohol use: Not Currently Drug use: No Current Outpatient Medications Medication Sig escitalopram oxalate (LEXAPRO) 5 mg tablet Take 1 tablet by mouth once daily. ubrogepant (UBRELVY) 100 mg tablet Take 1 tablet by mouth as needed at onset of migraine. May repeat dose at 2 hours if needed. Max 200 mg per 24 hours. letrozole (FEMARA) 2.5 mg tablet Take 1 tablet by mouth once daily. on cycle days 3-7 Sodium Fluoride (PREVIDENT 5000 ORTHO DEFENSE) 1.1 % 1 Application by DENTAL route once daily. Dx: dental caries naproxen (NAPROSYN) 500 mg tablet Take 1 tablet two times per day (with meals) for 5-7 days for menstrual migraine. No current facility-administered medications for this visit. ALLERGIES Allergen Reactions Amoxicillin Rash Ceftin [Cefuroxime * GI Upset Vomiting and diarrhea Ilosone Rash Naldecon Other: See Comments Penicillin Rash Phenylephrine Other: See Comments hallucinations Rqpljfnbdyt-Lq-Uxje* Other: See Comments hallucinations Pseudoephedrine Other: See Comments hallucinations Red Dye Other: See Comments hallucinations REVIEW OF SYSTEMS: All other ROS: negative PHYSICAL EXAMINATION: VIDEO EXAM: (if completed, performed via video enabled technology) GENERAL: alert and appropriate, in no distress, well-hydrated, well nourished, appears tired, and appears anxious ASSESSMENT: (F41.8) Situational anxiety (primary encounter diagnosis) (F43.0) Acute reaction to situational stress PLAN: Needs to consider therapy/counseling Can increase the lexapro if interested. Has a lot of situational stressors with her children right now with new medical diagnoses that are difficult which is affecting her mood as well. Offered my support during this visit as I know it is causing her a lot of distress There are no Patient Instructions on file for this visit. I spent a total of 35 minutes on the date of the service which included preparing to see the patient, smoe-sx-ggbl patient care, completing clinical documentation, and counseling and educating the patient/family/caregiver Frantz Benson DO documented in this encounter [facility] 01-10-2024 Telephone encounter Note Pt informed via [employer] message Amanda Chaudhary MA [facility] 01-10-2024 Miscellaneous Notes Pt informed via message Amanda Chaudhary MA Order placed per request Please notify her Frantz Benson DO Please see provider message -- Nv Dr. Benson, Can you please order a heavy metals panel for me and Tara sherice? We bought a home in 1974 that we completely remodeled and between carls cancer, two kids being diagnosed on the spectrum and me cracking more teeth I have a suspicion we have been exposed to lead. I would really appreciate it. Thx Debra march documented in this encounter [facility] 01-09-2024 Telephone encounter Note Order placed per request Please notify her Frantz Benson DO [facility] 01-07-2024 Telephone encounter Note Please see provider message -- Nv Dr. Benson, Can you please order a heavy metals panel for me and Tara sherice? We bought a home in 1974 that we completely remodeled and between carls cancer, two kids being diagnosed on the spectrum and me cracking more teeth I have a suspicion we have been exposed to lead. I would really appreciate it. Thx Debra joaquim [facility] 01-07-2024 Telephone encounter Note Turned into TE Amanda Chaudhary MA [facility] 01-07-2024 Miscellaneous Notes Turned into TE Amanda Chaudhary MA documented in this encounter [facility] 12-03-2023 Telephone encounter Note Reason for call; Returning voicemail. Schedule appointment with psychology Dr. Horne [facility] 12-03-2023 Miscellaneous Notes Reason for call; Returning voicemail. Schedule appointment with psychology Dr. Horne documented in this encounter [facility] 11-09-2023 Telephone encounter Note Ambulatory Pharmacy Prior Authorization Note Provider Intervention Required?: No- Pharmacy completed on your behalf. Rx Plan: [facility]: Ubrelvy 100MG tablets Cover My Meds Jarquin: [id number] Determination: Approved Prior Authorization/Case #: [id number] Prior Authorization Expiration: 11/08/24 Time to PA Submission in CMM: 15 min Time to PA Determination in CMM: Same day Additional Information: PLEASE NOTE: Pt will need follow up office visit to review/document efficacy and tolerability of treatment before prior auth expiration. Please ensure a future follow up appt is scheduled with your patient. This will ensure no interruption in patient's ability to obtain medication refills. Prescriptions will now be processed through [facility] Delivery Pharm[facility] for determination of next steps. For questions relating to this submission, please contact [facility] at [phone] [facility] Work Phone: 11-09-2023 Miscellaneous Notes Ambulatory Pharmacy Prior Authorization Note Provider Intervention Required?: No- Pharmacy completed on your behalf. Rx Plan: [facility]: Ubrelvy 100MG tablets Cover My Meds Jarquin: [id number] Determination: Approved Prior Authorization/Case #: [id number] Prior Authorization Expiration: 11/08/24 Time to PA Submission in CMM: 15 min Time to PA Determination in CMM: Same day Additional Information: PLEASE NOTE: Pt will need follow up office visit to review/document efficacy and tolerability of treatment before prior auth expiration. Please ensure a future follow up appt is scheduled with your patient. This will ensure no interruption in patient's ability to obtain medication refills. Prescriptions will now be processed through [facility] Delivery Pharm[facility] for determination of next steps. For questions relating to this submission, please contact [facility] at [phone] [facility] received prescription(s) for Ubrelvy 100MG tablets . Benefits investigation was conducted, indicating that a prior authorization is required. PA was initiated and pending review through [employer]. All pertinent clinical information was submitted to insurance. CMM Jarquin: [id number] Ordering Provider: Brianna Gaytan APRN.Barrett Pastor RN [facility] P: , F: documented in this encounter [facility] 11-05-[address] [facility] received prescription(s) for Ubrelvy 100MG tablets . Benefits investigation was conducted, indicating that a prior authorization is required. PA was initiated and pending review through [employer]. All pertinent clinical information was submitted to insurance. CMM Jarquin: [id number] Ordering Provider: Brianna Gaytan APRN.Barrett Pastor RN [facility] P: , F: [facility] 10-30-2023 History of Present illness Narrative CC: Debra March is a 38 year old female who presents to the office for anxiety HPI: Anxiety, situationally triggered. She has been told that her sons may have Autism. She has a 4 year old and 2 year old son, her daughter is gifted without any concerns. Her sons both are with speech deficits/delays and her 2 year didn't walk until he was 2 years old. She has been concerned with reports from activity therapy teacher for her 4 year old son Lukasz that he hasn't been developing as expected. She understands that this testing may take a while to determine and she feels very overwhelmingly anxious about the process and she hasn't been sleeping well, which in turn then her isn't sleeping well. She feels very nervous that they will require care the rest of their lives etc. She is willing to start on counseling or a medication at this time. PAST MEDICAL HISTORY Diagnosis Date Factor 5 Leiden mutation, heterozygous (HCC) Migraine headache Mixed hypercholesterolemia and hypertriglyceridemia 2015 PAST SURGICAL HISTORY Procedure Laterality Date DELIVERY ONLY 11/02/15,01/09/19 , low transverse x 3 TONSILLECTOMY PRIMARY/SECONDARY <AGE 12 Tonsillectomy Current Outpatient Medications Medication Sig escitalopram oxalate (LEXAPRO) 5 mg tablet Take 1 tablet by mouth once daily. ALPRAZolam (XANAX) 0.25 mg tablet Take 1 tablet by mouth at bedtime as needed for up to 30 days. ubrogepant (UBRELVY) 100 mg tablet Take 1 tablet by mouth as needed at onset of migraine. May repeat dose at 2 hours if needed. Max 200 mg per 24 hours. letrozole (FEMARA) 2.5 mg tablet Take 1 tablet by mouth once daily. on cycle days 3-7 Sodium Fluoride (PREVIDENT 5000 ORTHO DEFENSE) 1.1 % 1 Application by DENTAL route once daily. Dx: dental caries naproxen (NAPROSYN) 500 mg tablet Take 1 tablet two times per day (with meals) for 5-7 days for menstrual migraine. No current facility-administered medications for this visit. ALLERGIES Allergen Reactions Amoxicillin Rash Ceftin [Cefuroxime * GI Upset Vomiting and diarrhea Ilosone Rash Naldecon Other: See Comments Penicillin Rash Phenylephrine Other: See Comments hallucinations Bkdjxufwoue-Xd-Wwyw* Other: See Comments hallucinations Pseudoephedrine Other: See Comments hallucinations Red Dye Other: See Comments hallucinations Social History Tobacco Use Smoking status: Never Smokeless tobacco: Never Vaping Use Vaping Use: Never used Substance Use Topics Alcohol use: Not Currently Drug use: No ROS: See HPI PE: BP 118/78 Pulse 72 Temp (Src) 97.2 (Right Tympanic) Resp 16 Wt 172 lb (78.0kg) LMP 07/10/2023 Gen: A&OX3, anxious in the office today, she is pacing in the room, appears fatigued and overwhelmed HEENT: PERRLA, EOMs intact b/l, nares without drainage, pharynx without erythema, exudate, lesions, or drainage. Uvula midline. Neck: No LAD, no thyromegaly, no meningismus. CV: RRR, no murmur Lungs: CTA b/l, no wheezing Skin: No rashes, lesions, or wounds on exposed skin. ASSESSMENT/PLAN: 1. Situational anxiety - ICD9: 300.09, ICD10: F41.8 Will start her in therapy-she will call for appt Start on low dose of Lexapro in the evening and add on prn Alprazolam for panic symptoms as triggered. F/u in office in 1-2 months and prn. She is aware of coping strategies but needs support. She denies SI or HI or depression - ESCITALOPRAM 5 MG TABLET - ALPRAZOLAM 0.25 MG TABLET Frantz Benson DO I spent 37 minutes in the visit, with more than 50% of the total hheb-ji-lokl time of the visit in counseling / coordination of care. Return if no improvement. Follow up with Frantz Benson DO. To ER if develops chest pain, shortness of breath. Discussed risks, benefits, alternatives, and potential side effects of medications. Patient/Guardian expressed understanding and agreed with the plan. See patient instructions. Frantz Benson DO [address] [place] [address] documented in this encounter [facility] 10-25-2023 History of Present illness Narrative Images from the original note were not included. [facility] - Follow up Virtual Visit This visit was conducted as a virtual visit, with patient's permission, via Zoom. Patient location - Aryan March was identified by name and and consented to the video evaluation and its limitations. Based on this evaluation it may be necessary for them to schedule a follow up evaluation with me or other neurologists for formal physical examination and if necessary,other studies. I have communicated my name and active licensure. The patient's identity and physical location were verified at the time of this visit. Either the patient or their legal business development representative has been informed of the risks and benefits of -- and alternatives to -- treatment through a remote evaluation and consents to proceed with the evaluation remotely. Accompanied by: Self Primary Problem List: ACTIVE PROBLEM LIST Intractable Migraine Without Status Migrainosus Mixed Hypercholesterolemia and Hypertriglyceridemia Migraine Headache Factor 5 Leiden Mutation, Heterozygous (Hcc) Chest Pain Palpitations Herniated Intervertebral Disc of Lumbar Spine Lumbosacral Radiculopathy At L5 Acute Back Pain Well Adult Exam Pre-Menstrual Mood Disorder Migraine Miscarriage Class 1 Obesity With Body Mass Index (Bmi) of 32.0 to 32.9 in Adult Chief Complaint: headaches Impression and Plan from last visit 04/05/2023, Arlet: IMPRESSION: 38 year old woman with PMH of HLD, Factor V Leiden mutation, Migraine, pre-DM, obesity presenting for follow up for Episodic Migraine and Menstrual Migraine. Migraines are stable, occurring 3-5 days per month. Ubrelvy is effective as a rescue but she is now endorsing side effects of anxiety and palpitations the last few times she has taken it. Discussed that those are not common side effects of Ubrelvy, but we can trial a different gepant to see if she tolerates better. PLAN: Stop Ubrelvy Trial Nurtec 75 mg prn migraine Follow-up: 6 months Interval Headache History: Debra March is a 38 year old year old female, with a history of HLD, Factor V Leiden mutation, Migraine, pre-DM, obesity, episodic migraine, and menstrually related migraine following up today virtually for medication renewal. Since the last visit, the patient states that their headaches have not changed. Needs PA renewal for Ubrelvy, which works well for her. Uses just before her period and during it. No side effects. Usually resolves the headache within a half hour. Was doing IUI but has decided not to proceed with this and is no longer planning . Headache 1 Number of migraine headache days/month: 3 Number of headache free days/month: 20 Days missed from work or school in the last month: 0 days Analgesic Butalbital/acetaminophen/caffeine (Fioricet) no benefit Anti-Migraine Lasmiditan (Reyvow) palpitations Rizatriptan (Maxalt) palpitations Sumatriptan (Imitrex, Sumavel) palpitations Zolmitriptan (Zomig) palpitations GEPANTS Ubrogepant (Ubrelvy) Over the Counter Medications Acetaminophen (Tylenol) Acetaminophen/Aspirin/Caffeine (Excedrin, Goody s) Naproxen sodium (Aleve) PAST MEDICAL HISTORY Diagnosis Date Factor 5 Leiden mutation, heterozygous (HCC) Migraine headache Mixed hypercholesterolemia and hypertriglyceridemia 2015 PAST SURGICAL HISTORY Procedure Laterality Date DELIVERY ONLY 11/02/15,01/09/19 , low transverse x 3 TONSILLECTOMY PRIMARY/SECONDARY <AGE 12 Tonsillectomy ALLERGIES Allergen Reactions Amoxicillin Rash Ceftin [Cefuroxime * GI Upset Vomiting and diarrhea Ilosone Rash Naldecon Other: See Comments Penicillin Rash Phenylephrine Other: See Comments hallucinations Zxuozzteqhv-Fm-Cege* Other: See Comments hallucinations Pseudoephedrine Other: See Comments hallucinations Red Dye Other: See Comments hallucinations Current Medications: ubrogepant (UBRELVY) 100 mg tablet Take 1 tab as needed at onset of migraine. May repeat dose at 2 hours if needed. Max 200 mg per 24 hours. letrozole (FEMARA) 2.5 mg tablet Take 1 tablet by mouth once daily. on cycle days 3-7 Sodium Fluoride (PREVIDENT 5000 ORTHO DEFENSE) 1.1 % 1 Application by DENTAL route once daily. Dx: dental caries naproxen (NAPROSYN) 500 mg tablet Take 1 tablet two times per day (with meals) for 5-7 days for menstrual migraine. I have reviewed the Health Status Assessment responses and discussed these with the patient: yes Brianna Gaytan APRN.UTILITY WORKER [employer]ESSING HEADACHE SCORES: 09/22/2022 04/05/2023 10/25/2023 Headache Questions ER visits since last office visit: 0 1 Hospital stays since last office visit 0 0 Limited ADLs in the last month: 3 3 3 Days missed from work or school in the last month: 0 Days headache pain free in the last month: 27 25 20 Days per month with ALL of the following symptoms - decreased productivity, light sensitivity and nausea: 3 3 3 Initial improvement of headache after botox injection at last visit: Not applicable, I did not have a botox injection at my last visit Not applicable, I did not have a botox injection at my last visit PRN medication usage in the last month: 5 Patient impression of improvement since last visit: Minimally worse Much improved No change 09/22/2022 04/05/2023 10/25/2023 HIT-6 HIT-6 58 (Substantial impact) 56 (Substantial impact) 66 (Severe impact) 09/22/2022 04/05/2023 10/25/2023 DIANA - 2/7 SCORES DIANA-2 Score 0 0 4 DIANA-7 Score 9 09/22/2022 04/05/2023 10/25/2023 Migraine Specific QOL - Higher scores indicate better HRQL Role Function-Restrictive Transformed Score (range: 0-100) 80 82.86 57.14 Role Function-Preventive Transformed Score (range: 0-100) 80 80 45 Emotional Function Transformed Score (range: 0-100) 80 93.33 53.33 09/22/2022 04/05/2023 10/25/2023 PHQ-9 Score 0 0 2 Studies to Review: No MRI Head/Brain - Last 2 Impressions No resulted procedures found. MRA Head and/or Neck - Last 2 Impressions No resulted procedures found. MRI Cervical Spine - Last 2 Impressions No resulted procedures found. CT Head/Brain - Last 2 Impressions No resulted procedures found. CTA Head and/or Neck - Last 2 No resulted procedures found. Labs to Review: No - Most recent CMP and CBC below Latest Ref Rng & Units 12/23/2022 CMP Sodium 136 - 145 mmol/L 140 Potassium 3.5 - 5.1 mmol/L 4.3 Chloride 98 - 107 mmol/L 104 CO2 21 - 32 mmol/L 30 Glucose 70 - 100 mg/dL 96 BUN 7 - 26 mg/dL 12 Creatinine 0.51 - 0.95 mg/dL 0.69 EGFR >=60 mL/min/1.73m 115 Protein, Total 6.0 - 8.5 g/dL 7.8 Albumin 3.2 - 5.0 g/dL 4.4 Calcium 8.5 - 10.5 mg/dL 9.7 Bilirubin, Total 0.2 - 1.0 mg/dL 0.4 AST 8 - 34 U/L 25 ALT 13 - 61 U/L 23 Alkaline Phosphatase 45 - 117 U/L 71 Latest Ref Rng & Units 12/23/2022 CBC WBC 3.70 - 11.00 k/uL 7.27 RBC 3.90 - 5.20 m/uL 4.64 Hemoglobin 11.5 - 15.5 g/dL 13.3 Hematocrit 36.0 - 46.0 % 41.3 MCV 80.0 - 100.0 fL 89.0 MCH 26.0 - 34.0 pg 28.7 MCHC 30.5 - 36.0 g/dL 32.2 RDW-CV 11.5 - 15.0 % 13.2 Platelet Count 150 - 400 k/uL 311 MPV 9.0 - 12.7 fL 10.0 Baso% % 1.1 Abs Neut (ANC) 1.45 - 7.50 k/uL 4.97 Abs Lymph 1.00 - 4.00 k/uL 1.38 Abs Monona <0.87 k/uL 0.63 Abs Eosin <0.46 k/uL 0.15 Abs Baso <0.11 k/uL 0.08 NRBC /100 WBC 0.0 New Health Issues: No Review of Systems: Review of system: unchanged from the previous visit (sleep patterns, mood, energy, appetite, stress, exercising). Physical Examination: Vital Signs: No vital signs taken for this visit due to nature of virtual visit. General: well appearing, in no acute distress, alert Pain Behaviors: no pain behaviors observed Neurological: Mental Status: Alert and oriented to person, place and time. Affect is normal. Speech is spontaneous and fluent without dysarthria. 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 Attention span and concentration are excellent. HEENT: Head is normocephalic and features were symmetric. Musculoskeletal: Patient able to sit up right in chair for entirety of visit. Cranial Nerves: III, IV, -EOMI: full. VII-face is symmetric without evidence of weakness. VIII-hearing intact. IMPRESSION/PLAN: Migraine without aura and without status migrainosus, not intractable (primary encounter diagnosis) 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 Debra March is a 38 year old year old female, with a history of HLD, Factor V Leiden mutation, Migraine, pre-DM, obesity, episodic migraine, and menstrually related migraines. Migraines are stable and well controlled on current regimen. Ubrelvy is an effective rescue medication for her and she tolerates it well. Does not wish to make changes today. Refills provided and will submit to renew Ubrelvy. Discussed that Ubrelvy is not safe in so if they do plan to conceive in the future she will stop the medication and follow up to discuss other treatment options. Patient verbalized understanding and agreed to treatment plan. Their neurological examination is essentially normal at this visit although this is limited due to nature of telehealth. Prior Authorization: Debra March has been previously approved for an Oral Calcitonin Gene-Related Peptide Receptor Antagonist (GEPANT) Ubrogepant for the treatment of abortive use. The patient has demonstrated the following: Provider attests patient has had a positive clinical response: Yes Patient will not use with another Oral Calcitonin Gene-Related Peptide Receptor Antagonist (GEPANT): Yes Patient's quality of life and ability to perform ADLs has improved: Yes The patient has tried and failed the following : We suggest the patient continue treatment with GEPANT Ubrogepant. The following preventative medications have been tried for three or more months without benefit: The following abortive medications have been tried but require high frequency use which can lead to Medication Overuse Headache: Analgesic Butalbital/acetaminophen/caffeine (Fioricet) no benefit Anti-Migraine Lasmiditan (Reyvow) palpitations Rizatriptan (Maxalt) palpitations Sumatriptan (Imitrex, Sumavel) palpitations Zolmitriptan (Zomig) palpitations GEPANTS Ubrogepant (Ubrelvy) Over the Counter Medications Acetaminophen (Tylenol) Acetaminophen/Aspirin/Caffeine (Excedrin, Goody s) Naproxen sodium (Aleve) HEADACHE MANAGEMENT: (You are the primary guardian of your health and headache. Keep track of all medications: This includes the reason for use, side effects and benefits.) MEDICATION TREATMENT: Medications to Start Taking ubrogepant (UBRELVY) 100 mg tablet Take 1 tab as needed at onset of migraine. May repeat dose at 2 hours if needed. Max 200 mg per 24 hours. Follow-up: 6 months, PRN Level of Service: Virtual Visit 20 minutes Brianna Gaytan APRN.UTILITY WORKER FILM PROCESSING Headache Section [facility] October 25, 2023 documented in this encounter [facility] 10-21-2023 Procedure note [facility]I ALICE IUI PROCEDURE NOTE Date: 10/20/2023 Primary Proceduralist: Duncan Guadalupe APRN.CNP Consents and Labels Consent Signed: Informed Consent obtained and on the chart Labels Verified With Patient: Yes Indications: Debra March, is a 38 year old female here today for intrauterine insemination. IUI # 4. Cycle Day: 13 Last menstrual period: 10/09/2023 [place] Protocol: UNIVERSAL PROTOCOL / SAFETY CHECKLIST Procedure to be Performed: IUI Sign In: A Moment of CARE was completed. Personnel directly involved with the procedure wore the appropriate PPE (Personal Protective Equipment). Patient/Surrogate Stated/Verified: PATIENT VERIFIED(optional for EMERGENT procedures): Patient name, Date of , Relevant allergies, and The intended procedure Time Out Communication: Intended patient and procedure match the source documents. Consent documented and matches the intended procedure. Sign Out: SIGN OUT (optional for EMERGENT procedures): No specimen collected. All instruments, equipment, possible retained foreign bodies accounted for. Duncan Guadalupe APRN.CNP IUI IUI Date: 10/20/23 Partner's Name: Tara March IUI Time: 9:00 AM EDT Partner's : 04/15/1987 IUI #: 4 Partner's Patient's LMP: 10/09/23 Cycle Day: 13 Pre-Procedure Diagnosis: Infertility Post-Procedure Diagnosis: Infertility Cycle Meds: Letrozole 2.5 mg Luteal Phase Progesterone: N/A Trigger: Ovidrel Catheter Type: Unisem catheter Tenaculum: No Catheter passed: Easy Complications: None Sperm Information: Source of Sperm: Partner Ejaculated: Yes Fresh/Frozen: Fresh Cycle reviewed, all questions answered. Pt instructed to take a test in 17 days if no menses and call with results. SIGNATURE: Duncan Guadalupe APRN.CNP PATIENT NAME: Debra March DATE: October 21, 2023 TIME: 11:50 AM [facility] 10-21-2023 Procedure note WHI ALICE IUI PROCEDURE NOTE Date: 10/20/2023 Primary Proceduralist: Duncan Guadalupe APRN.CNP Consents and Labels Consent Signed: Informed Consent obtained and on the chart Labels Verified With Patient: Yes Indications: Debra March, is a 38 year old female here today for intrauterine insemination. IUI # 4. Cycle Day: 13 Last menstrual period: 10/09/2023 [place] Protocol: UNIVERSAL PROTOCOL / SAFETY CHECKLIST Procedure to be Performed: IUI Sign In: A Moment of CARE was completed. Personnel directly involved with the procedure wore the appropriate PPE (Personal Protective Equipment). Patient/Surrogate Stated/Verified: PATIENT VERIFIED(optional for EMERGENT procedures): Patient name, Date of , Relevant allergies, and The intended procedure Time Out Communication: Intended patient and procedure match the source documents. Consent documented and matches the intended procedure. Sign Out: SIGN OUT (optional for EMERGENT procedures): No specimen collected. All instruments, equipment, possible retained foreign bodies accounted for. Duncan Guadalupe APRN.CNP IUI IUI Date: 10/20/23 Partner's Name: Tara March IUI Time: 9:00 AM EDT Partner's : 04/15/1987 IUI #: 4 Partner's Patient's LMP: 10/09/23 Cycle Day: 13 Pre-Procedure Diagnosis: Infertility Post-Procedure Diagnosis: Infertility Cycle Meds: Letrozole 2.5 mg Luteal Phase Progesterone: N/A Trigger: Ovidrel Catheter Type: Unisem catheter Tenaculum: No Catheter passed: Easy Complications: None Sperm Information: Source of Sperm: Partner Ejaculated: Yes Fresh/Frozen: Fresh Cycle reviewed, all questions answered. Pt instructed to take a test in 17 days if no menses and call with results. SIGNATURE: Duncan Guadalupe APRN.CNP PATIENT NAME: Debra March DATE: October 21, 2023 TIME: 11:50 AM documented in this encounter [facility] 10-21-2023 History of Present illness Narrative IUI specimen released to provider Yamilet Snow October 21, 2023 9:22 AM documented in this encounter [facility] 10-19-2023 Telephone encounter Note Called patient to number listed, verified pt. Reviewed us from today All questions answered. Delaney Jones RN October 19, 2023 2:44 PM [facility] 10-19-2023 Miscellaneous Notes Called patient to number listed, verified pt. Reviewed us from today All questions answered. Delaney Jones RN October 19, 2023 2:44 PM Pt returning call and would also like to discuss how many eggs she has? documented in this encounter [facility] 10-19-2023 Telephone encounter Note Pt returning call and would also like to discuss how many eggs she has? [facility] 10-19-2023 History of Present illness Narrative RN called patient, LVM with plan / advised to call back to schedule IUI Delaney Jones RN October 19, 2023 12:39 PM US exam completed. Tanja Abad PA-C October 19, 2023 8:39 AM documented in this encounter [facility] 10-18-2023 Telephone encounter Note Called the patient she verified her name and date of I advised to call day 1 of her period to set up the mid cycle Patient took letrozole day 3-7 Has ovidrel period started 10-09-23 needs mid cycle scan Marilee Aburto RN October 18, 2023 12:44 PM Flowsheet done Please schedule the patient for the following- Location: bath Provider: nurse Visit type: mid cycle Reason for visit/appointment notes: mid cycle scan non ivf Date: 10-19-23 Time (requested): 0745 If slot is full, please schedule the closest open slot. Call to patient needed: no [facility] 10-18-2023 Miscellaneous Notes Called the patient she verified her name and date of I advised to call day 1 of her period to set up the mid cycle Patient took letrozole day 3-7 Has ovidrel period started 10-09-23 needs mid cycle scan Marilee Aburto RN October 18, 2023 12:44 PM Flowsheet done Please schedule the patient for the following- Location: bath Provider: nurse Visit type: mid cycle Reason for visit/appointment notes: mid cycle scan non ivf Date: 10-19-23 Time (requested): 0745 If slot is full, please schedule the closest open slot. Call to patient needed: no Patient called with questions about IUI documented in this encounter [facility] 10-18-2023 Telephone encounter Note Patient called with questions about IUI [facility] 10-08-2023 Progress note Formatting of t his note is different from the original. Date of Consult: 10/08/2023 Debra March is a 38 year old female presenting with the following history: HISTORY OF PRESENT ILLNESS: Debra March is a 38 year old female with Debra March is a 38 year old female with infertility. Possible age-related. Could also be male factor. Last SA showed lower sperm motility. Since the last visit, her had varicocele repaired in August 2023. They would like to discuss options again. June 25, 2023 Prior note Refer here by her PCP. Have 3 children. Having been TTC since 06/2022. 7, 4 and 2 years old. Had miscarriage in November 2022 and was told that she was around 4-5 weeks . 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 Periods used to be q 28-30 days. Now, period q 25-26 days. Obstetric History T3 L3 SAB1 IAB0 Ectopic0 Multiple0 Live Births3 Fertility Evaluations and Treatments: Eval Checklist Results Date Comments HSG Hysteroscopy Laparoscopy OPK (Ovulation Predictor Kit) Ovarian [place] Saline Ultrasound Semen Analysis Ultrasound Other (See comments) MENSTRUAL HISTORY: Menarche Age: Length of Cycle: 25-26 days Regular Days: Menstrual Flow: Menstrual Symptoms: Patient's last menstrual period was 07/10/2023 (exact date). PAST MEDICAL HISTORY Diagnosis Date Factor 5 Leiden mutation, heterozygous (HCC) Migraine headache Mixed hypercholesterolemia and hypertriglyceridemia 2015 PAST SURGICAL HISTORY Procedure Laterality Date DELIVERY ONLY 11/02/15,01/09/19 , low transverse x 3 TONSILLECTOMY PRIMARY/SECONDARY Tonsillectomy FAMILY HISTORY Problem Relation Age of Onset Cancer Mother 55 multiple myeloma Hyperlipidemia Father Diabetes Father borderline Hyperlipidemia Brother Breast Cancer Maternal Grandmother Diabetes Maternal Grandmother Heart Maternal Grandmother Heart Maternal Grandfather Cancer Paternal Grandmother Brain Heart Paternal Grandfather Heart Attack Paternal Grandfather ETHNICITY: Assessment and Plan ALICE IUI Treatment Plan: Patient summary: Debra March 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 S/p IUI x 3. Per pt, she did not do the IUI at the correct time x 2 cycles. 1 cycle she did the trigger shot at the wrong time. Another cycle she seems to have false positive OPK. She also c/o migraine while taking letrozole. Long discuss with pt about treatment options. Despite side effects, patient would prefer to continue letrozole treatment. We briefly discuss clomid or rFSH for OI/IUI. She is not interested at this time. She is comfortable with doing IUI for 3-4 more cycles and then moving on to IVF. Tubal Patency Testing: [place]cos[place] 03/2023 Sperm Source:Partner Fresh Treatment Protocol: Letrozole dose 2.5mg Monitoring Plan: Ultrasound monitoring day 12 or 13 Ovidrel Trigger: Yes Supplemental Progesterone: None Comments: none Follow up in 2-3 months to discuss IVF. Encourage pt to wait until November to do IUI again since her just had varicocele repaired. She, however, doesn't want to wait. Farideh Perez MD This visit was conducted as a virtual visit via zoom. I have communicated my name and active licensure. The patient's identity and physical location were verified at the time of this visit. Either the patient or their legal business development representative has been informed of the risks and benefits of -- and alternatives to -- treatment through a remote evaluation and consents to proceed with the evaluation remotely. I spent a total of 30 minutes on the date of the service which included preparing to see the patient, [id number] patient care, completing clinical documentation, counseling and educating the patient/family/caregiver, ordering medications, tests, or procedures, communicating results to the patient/family/caregiver, and care coordination (not separately reported). Farideh Perez MD [facility] 10-08-2023 Consult note Formatting of th is note is different from the original. Date of Consult: 10/08/2023 Debra March is a 38 year old female presenting with the following history: HISTORY OF PRESENT ILLNESS: Debra March is a 38 year old female with Debra March is a 38 year old female with infertility. Possible age-related. Could also be male factor. Last SA showed lower sperm motility. Since the last visit, her had varicocele repaired in August 2023. They would like to discuss options again. June 25, 2023 Prior note Refer here by her PCP. Have 3 children. Having been TTC since 06/2022. 7, 4 and 2 years old. Had miscarriage in November 2022 and was told that she was around 4-5 weeks . 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 Periods used to be q 28-30 days. Now, period q 25-26 days. Obstetric History T3 L3 SAB1 IAB0 Ectopic0 Multiple0 Live Births3 Fertility Evaluations and Treatments: Eval Checklist Results Date Comments HSG Hysteroscopy Laparoscopy OPK (Ovulation Predictor Kit) Ovarian [place] Saline Ultrasound Semen Analysis Ultrasound Other (See comments) MENSTRUAL HISTORY: Menarche Age: Length of Cycle: 25-26 days Regular Days: Menstrual Flow: Menstrual Symptoms: Patient's last menstrual period was 07/10/2023 (exact date). PAST MEDICAL HISTORY Diagnosis Date Factor 5 Leiden mutation, heterozygous (HCC) Migraine headache Mixed hypercholesterolemia and hypertriglyceridemia 2015 PAST SURGICAL HISTORY Procedure Laterality Date DELIVERY ONLY 11/02/15,01/09/19 , low transverse x 3 TONSILLECTOMY PRIMARY/SECONDARY <AGE 12 Tonsillectomy FAMILY HISTORY Problem Relation Age of Onset Cancer Mother 55 multiple myeloma Hyperlipidemia Father Diabetes Father borderline Hyperlipidemia Brother Breast Cancer Maternal Grandmother Diabetes Maternal Grandmother Heart Maternal Grandmother Heart Maternal Grandfather Cancer Paternal Grandmother Brain Heart Paternal Grandfather Heart Attack Paternal Grandfather ETHNICITY: Assessment and Plan ALICE IUI Treatment Plan: Patient summary: Debra March 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 S/p IUI x 3. Per pt, she did not do the IUI at the correct time x 2 cycles. 1 cycle she did the trigger shot at the wrong time. Another cycle she seems to have false positive OPK. She also c/o migraine while taking letrozole. Long discuss with pt about treatment options. Despite side effects, patient would prefer to continue letrozole treatment. We briefly discuss clomid or rFSH for OI/IUI. She is not interested at this time. She is comfortable with doing IUI for 3-4 more cycles and then moving on to IVF. Tubal Patency Testing: [place] 03/2023 Sperm Source:Partner Fresh Treatment Protocol: Letrozole dose 2.5mg Monitoring Plan: Ultrasound monitoring day 12 or 13 Ovidrel Trigger: Yes Supplemental Progesterone: None Comments: none Follow up in 2-3 months to discuss IVF. Encourage pt to wait until November to do IUI again since her just had varicocele repaired. She, however, doesn't want to wait. Farideh Perez MD This visit was conducted as a virtual visit via zoom. I have communicated my name and active licensure. The patient's identity and physical location were verified at the time of this visit. Either the patient or their legal business development representative has been informed of the risks and benefits of -- and alternatives to -- treatment through a remote evaluation and consents to proceed with the evaluation remotely. I spent a total of 30 minutes on the date of the service which included preparing to see the patient, [id number] patient care, completing clinical documentation, counseling and educating the patient/family/caregiver, ordering medications, tests, or procedures, communicating results to the patient/family/caregiver, and care coordination (not separately reported). 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 S/p IUI x 3. Per pt, she did not do the IUI at the correct time x 2 cycles. 1 cycle she did the trigger shot at the wrong time. Another cycle she seems to have false positive OPK. She also c/o migraine while taking letrozole. Long discuss with pt about treatment options. Despite side effects, patient would prefer to continue letrozole treatment. We briefly discuss clomid or rFSH for OI/IUI. She is not interested at this time. She is comfortable with doing IUI for 3-4 more cycles and then moving on to IVF. Tubal Patency Testing: [place] 03/2023 Sperm Source:Partner Fresh Treatment Protocol: Letrozole dose 2.5mg Monitoring Plan: Ultrasound monitoring day 12 or 13 Ovidrel Trigger: Yes Supplemental Progesterone: None Comments: none Follow up in 2-3 months to discuss IVF. Encourage pt to wait until November to do IUI again since her just had varicocele repaired. She, however, doesn't want to wait. 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 S/p IUI x 3. Per pt, she did not do the IUI at the correct time x 2 cycles. 1 cycle she did the trigger shot at the wrong time. Another cycle she seems to have false positive OPK. She also c/o migraine while taking letrozole. Long discuss with pt about treatment options. Despite side effects, patient would prefer to continue letrozole treatment. We briefly discuss clomid or rFSH for OI/IUI. She is not interested at this time. She is comfortable with doing IUI for 3-4 more cycles and then moving on to IVF. Tubal Patency Testing: [place] 03/2023 Sperm Source:Partner Fresh Treatment Protocol: Letrozole dose 2.5mg Monitoring Plan: Ultrasound monitoring day 12 or 13 Ovidrel Trigger: Yes Supplemental Progesterone: None Comments: none Follow up in 2-3 months to discuss IVF. Encourage pt to wait until November to do IUI again since her just had varicocele repaired. She, however, doesn't want to wait. Farideh Perez MD documented in this encounter [facility] 10-01-2023 Telephone encounter Note Duplicate encounter Marilee Aburto RN October 01, 2023 9:29 AM [facility] 10-01-2023 Miscellaneous Notes Duplicate encounter Marilee Aburto RN October 01, 2023 9:29 AM [facility] calling in regards to pts medication letrozole. Need to clarify directions and quantity [phone] documented in this encounter [facility] 10-01-2023 Telephone encounter Note [facility] calling in regards to pts medication letrozole. Need to clarify directions and quantity [phone] [facility] 09-28-2023 History of Present illness Narrative Images from the original note were not included. [facility] VIRTUAL VISIT PROGRESS NOTE SERVICE DATE: 09/28/2023 SERVICE TIME: 2:57 PM NAME: Debra March VIRTUAL VISIT PROGRESS NOTE This is a virtual visit. It required patient-provider interaction for the medical decision making as documented below. Patient name and birthday verified: Yes Location of patient: home Persons Present: patient and spouse I have communicated my name and active licensure. The patient's identity and physical location were verified at the time of this visit. Either the patient or their legal business development representative has been informed of the risks and benefits of -- and alternatives to -- treatment through a remote evaluation and consents to proceed with the evaluation remotely. Reason for visit: concerns about Letrozole HPI patient of Dr. Chris Richardson and Tara present today to discuss some concerns they have about Letrozole and their most recent cycle LMP: 15, Letrozole 2.5mg cycle day 3-7, She got a positive on the OPK on cycle day 13 and had IUI cycle day 14 Then she continued to test with OPK and had a second positive last Sunday. today is cycle day 26 Worried that Letrozole threw off her ovulation. Also, Letrozole gives her side effects. She has completed 3 cycles of Letrozole/IUI. She has upcoming appointment with Dr. Perez to discuss IVF. Patient's wishes: Letrozole/IUI with micycle monitoring and trigger shot for 6 more cycles. Also states she is having a difficult time getting Letrozole rx refilled in enough time to go to the pharmacy. Encounter Diagnosis ICD-10-CM 1. Encounter for fertility planning Z31.89 Plan: Discussed pro's/con's of continuing letrozole with IUI for 6 more months - not recommended, but she can certainly get set up for another cycle if she is not before she meets with Dr. Perez. Historically we can do up to 6 total, but she can discuss this with Dr. Perez. Advised to keep appointment with Dr. Perez to discuss how many more cycles are recommended and get the information about IVF Discussed natural cycle/midcycle monitoring/trigger/IUI versus Letrozole/midcycle/trigger/IUI. Medicated cycle is recommended but she can do natural cycle if she declines more Letrozole. Regardless of natural cycle or Letrozole cycle, she should do midcycle monitoring and trigger as her OPK has proven to be unreliable. Duncan Guadalupe APRN.CNP September 28, 2023 2:57 PM I spent a total of 30 minutes on the date of the service which included preparing to see the patient, [id number] patient care, completing clinical documentation, obtaining and/or reviewing separately obtained history, counseling and educating the patient/family/caregiver, ordering medications, tests, or procedures, and care coordination (not separately reported). To patients reading this note: Please be advised the primary purpose of this note is for me to communicate with myself and other members of your medical team. Standard sentence structure is not always used. Medical terminology and medical abbreviations may be used. There may be grammatical and typographical errors missed in proofreading. documented in this encounter [facility] 09-19-2023 Telephone encounter Note Called the patient she verified her name and date of I advised to call when her period starts and I will send meds in patient verbalized an understanding Marilee Aburto RN September 19, 2023 12:48 PM [facility] 09-19-2023 Miscellaneous Notes Called the patient she verified her name and date of I advised to call when her period starts and I will send meds in patient verbalized an understanding Marilee Aburto RN September 19, 2023 12:48 PM Patient called needing a rx for her trigger shot as well as sending her letrozole med through the mail pharmacy documented in this encounter [facility] 09-19-2023 Telephone encounter Note Patient called needing a rx for her trigger shot as well as sending her letrozole med through the mail pharmacy [facility] 09-16-2023 History of Present illness Narrative IUI Pre: 84 m/ml, 49% Post: 29 m/ml, 93% Insem#: 10.8 million IUI specimen released to provider Yamilet Snow September 16, 2023 10:00 AM documented in this encounter [facility] 09-16-2023 Procedure note WHI ALICE IUI PROCEDURE NOTE Date: 09/16/2023 Primary Proceduralist: Sanna Raymundo APRN.CNM Consents and Labels Consent Signed: Informed Consent obtained and on the chart Labels Verified With Patient: Yes Indications: Debra March, is a 38 year old female here today for intrauterine insemination. IUI # Series 1 Cycle 3. Cycle Day: 14 Last menstrual period: 09/03/2023 [place] Protocol: UNIVERSAL PROTOCOL / SAFETY CHECKLIST Procedure to be Performed: IUI Sign In: A Moment of CARE was completed. Personnel directly involved with the procedure wore the appropriate PPE (Personal Protective Equipment). Patient/Surrogate Stated/Verified: PATIENT VERIFIED(optional for EMERGENT procedures): Patient name, Date of , Relevant allergies, and The intended procedure Time Out Communication: Intended patient and procedure match the source documents. Consent documented and matches the intended procedure. Sign Out: SIGN OUT (optional for EMERGENT procedures): No specimen collected. All instruments, equipment, possible retained foreign bodies accounted for. Post-procedure follow-up management communicated and Plan of Care Visit completed when applicable. Sanna Raymundo APRN.CNM IUI IUI Date: 09/16/23 Partner's Name: Tara March IUI Time: 10:00 AM EDT Partner's : 04/15/1987 IUI #: Series 1 Cycle 3 Partner's Patient's LMP: 09/03/23 Cycle Day: 14 Pre-Procedure Diagnosis: Infertility Post-Procedure Diagnosis: Infertility Cycle Meds: Letrozole 2.5 mg Comments: Took 4/5 days Luteal Phase Progesterone: N/A Trigger: LH Surge Date (Comment: 09/15/23) Catheter Type: Curve catheter Tenaculum: No Catheter passed: Easy Complications: None Sperm Information: Source of Sperm: Partner Ejaculated: Yes Fresh/Frozen: Fresh TMC (total motile count of sperm after wash): 10.8 million Cycle reviewed, all questions answered. Pt instructed to take a test in 17 days if no menses and call with results. SIGNATURE: Sanna Raymundo APRN.CNM PATIENT NAME: Debra March DATE: September 16, 2023 TIME: 10:24 AM [facility] 09-16-2023 Procedure note WHI ALICE IUI PROCEDURE NOTE Date: 09/16/2023 Primary Proceduralist: Sanna Raymundo APRN.CNM Consents and Labels Consent Signed: Informed Consent obtained and on the chart Labels Verified With Patient: Yes Indications: Debra March, is a 38 year old female here today for intrauterine insemination. IUI # Series 1 Cycle 3. Cycle Day: 14 Last menstrual period: 09/03/2023 [place] Protocol: UNIVERSAL PROTOCOL / SAFETY CHECKLIST Procedure to be Performed: IUI Sign In: A Moment of CARE was completed. Personnel directly involved with the procedure wore the appropriate PPE (Personal Protective Equipment). Patient/Surrogate Stated/Verified: PATIENT VERIFIED(optional for EMERGENT procedures): Patient name, Date of , Relevant allergies, and The intended procedure Time Out Communication: Intended patient and procedure match the source documents. Consent documented and matches the intended procedure. Sign Out: SIGN OUT (optional for EMERGENT procedures): No specimen collected. All instruments, equipment, possible retained foreign bodies accounted for. Post-procedure follow-up management communicated and Plan of Care Visit completed when applicable. Sanna Raymundo APRN.CNM IUI IUI Date: 09/16/23 Partner's Name: Tara March IUI Time: 10:00 AM EDT Partner's : 04/15/1987 IUI #: Series 1 Cycle 3 Partner's Patient's LMP: 09/03/23 Cycle Day: 14 Pre-Procedure Diagnosis: Infertility Post-Procedure Diagnosis: Infertility Cycle Meds: Letrozole 2.5 mg Comments: Took 4/5 days Luteal Phase Progesterone: N/A Trigger: LH Surge Date (Comment: 09/15/23) Catheter Type: Curve catheter Tenaculum: No Catheter passed: Easy Complications: None Sperm Information: Source of Sperm: Partner Ejaculated: Yes Fresh/Frozen: Fresh TMC (total motile count of sperm after wash): 10.8 million Cycle reviewed, all questions answered. Pt instructed to take a test in 17 days if no menses and call with results. SIGNATURE: Sanna Raymundo APRN.CNM PATIENT NAME: Debra March DATE: September 16, 2023 TIME: 10:24 AM documented in this encounter [facility] 09-05-2023 Telephone encounter Note Patient called wanting to know if she could try a higher dose of letrozole for this cycle of IUI. Wants to go from 2.5 to 5. Please follow up with patient. [facility] 09-05-2023 Miscellaneous Notes Patient called wanting to know if she could try a higher dose of letrozole for this cycle of IUI. Wants to go from 2.5 to 5. Please follow up with patient. Called the patient there was no answer Left a message to call the office Marilee Aburto RN August 30, 2023 9:04 AM Patient called wanting to know if lab could be order after having a few positive preg test results. documented in this encounter [facility] 08-30-2023 Telephone encounter Note Called the patient there was no answer Left a message to call the office Marilee Aburto RN August 30, 2023 9:04 AM [facility] 08-29-2023 Telephone encounter Note Patient called wanting to know if lab could be order after having a few positive preg test results. [facility] 08-23-2023 Procedure note [facility] ALICE IUI PROCEDURE NOTE Date: 08/22/2023 Primary Proceduralist: Suzi Rosales APRN.UTILITY WORKER FILM PROCESSING Consents and Labels Consent Signed: Informed Consent obtained and on the chart, See Comment (Comment: verbal consent for IUI procedure, singed in [facility] on#1, declined supervisor safety deposit) Labels Verified With Patient: Yes, See Comment (Comment: confirmed allpatient, and specimen odenifiers with patient and lab) Indications: Debra March, is a 38 year old female here today for intrauterine insemination. IUI # 3. Cycle Day: 16 Last menstrual period: 08-07-23, she had 3 c-sections and 1 sab in [place] Protocol: UNIVERSAL PROTOCOL / SAFETY CHECKLIST Procedure to be Performed: intrauterine insemination SPECIMEN iut of lab at 12 NOON Sign In: A Moment of CARE was completed. Personnel directly involved with the procedure wore the appropriate PPE (Personal Protective Equipment). Special equipment: iui supplies Patient/Surrogate Stated/Verified: PATIENT VERIFIED(optional for EMERGENT procedures): Patient name, Date of , Relevant allergies, and The intended procedure Time Out Communication: Intended patient and procedure match the source documents. Consent documented and matches the intended procedure. Relevant labs, photos, and/or imaging studies have been reviewed. No correct side/site applicable for marking and visibility. No medications required for procedure. No fire risk assessment and interventions applicable. No implant(s) inserted. Sign Out: SIGN OUT (optional for EMERGENT procedures): No specimen collected. All instruments, equipment, possible retained foreign bodies accounted for. No instruments, equipment or retained foreign bodies applicable. Post-procedure follow-up management communicated and Plan of Care Visit completed when applicable. Suzi Rosales APRN.CNP IUI IUI Date: 08/22/23 IUI Time: 12:00 PM EDT IUI #: 3 Pre-Procedure Diagnosis: Infertility Post-Procedure Diagnosis: Infertility Cycle Meds: Letrozole 2.5 mg Comments: only took first pill on cd 3, di not like the way it made her feel, TOO emotional did not take any more pills Luteal Phase Progesterone: N/A Trigger: Ovidrel (Comment: 08-20-23 mad her feel angry x 1 day, then resolved, states sensitive to hormones) Catheter Type: Curve catheter Tenaculum: No Catheter passed: Easy Complications: None Sperm Information: Source of Sperm: Partner Ejaculated: Yes Fresh/Frozen: Fresh TMC (total motile count of sperm after wash): 7.6 mill/ 90% p[vega= 3 Cycle reviewed, all questions answered. Pt instructed to take a test in 17 days if no menses and call with results. run hpt even if some bleeding and with period. call if positive, call if any problems or concerns. will review plan if needs Lovenox with + test or not, used in past, + Factor V leiden , mom had VTE ob is not on [facility] notes 2020 saw MFM at [facility], used lovenox PP did not want it with , will see if we defer to patient OB, SIGNATURE: Suzi Rosales APRN.CNP PATIENT NAME: Debra March DATE: August 23, 2023 TIME: 9:23 AM documented in this encounter [facility] 08-22-2023 History of Present illness Narrative IUI Wash Pre: 55 Million/mL, 75% Post: 21 Million/mL, 90% Final Insem #: 7.6 Million IUI specimen released to provider Victorina León August 22, 2023 12:00 PM documented in this encounter [facility] 08-20-2023 Miscellaneous Notes Please schedule patient for IUI on Monday 08/21. Waiting for clearance for spouse Tara March's semen wash. documented in this encounter [facility] 08-20-2023 History of Present illness Narrative Called the patient she verified name and date of I advised trigger is tonight and IUI is 24 Marilee Aburto RN August 20, 2023 1:03 PM documented in this encounter [facility] 08-08-2023 Miscellaneous Notes Called pt at number listed. Pt will start Letrozole on 08/08 and have midcycle scan on 08/16. 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 Tubal Patency Testing: Hycosy 03/2023 Sperm Source:Partner Fresh Treatment Protocol: Letrozole dose 2.5mg Monitoring Plan: Ultrasound monitoring day 12 or 13 Ovidrel Trigger: Yes Supplemental Progesterone: None Comments: none Duncan Guadalupe APRN.CNP 08/06/2023 documented in this encounter [facility] 08-06-2023 Miscellaneous Notes Called the patient she verified her name and date of I advised we sent her script to [facility] for ovidrel I gave the patient the phone number to the pharmacy Marilee Aburto RN August 06, 2023 4:00 PM Patient called needing clarification on where the rx for her meds are being sent. Patient called stating she had another failed IUI. Wants to discuss next steps about possibly doing a trigger shot to help. documented in this encounter [facility] 08-06-2023 History of Present illness Narrative Images from the original note were not included. [facility] ENDOCRINOLOGY AND INFERTILITY VIRTUAL VISIT PROGRESS NOTE SERVICE DATE: 08/06/2023 SERVICE TIME: 2:00 PM NAME: Debra March VIRTUAL VISIT PROGRESS NOTE This is a virtual visit. It required patient-provider interaction for the medical decision making as documented below. Patient name and birthday verified: Yes Location of patient: home Persons Present: patient and patient's spouse/significant other I have communicated my name and active licensure. The patient's identity and physical location were verified at the time of this visit. Either the patient or their legal business development representative has been informed of the risks and benefits of -- and alternatives to -- treatment through a remote evaluation and consents to proceed with the evaluation remotely. Reason for visit: requesting midcycle scan and trigger shot HPI Treatment cycles completed: LMP 07/10, Letrozole 2.5mg cycle day 3-7, IUI 07/24 (cycle day 16) she has taken many tests and they have all been negative. She and her would like to add midcycle monitoring and trigger shot to this upcoming cycle. Discussed pro's con's - they wish to proceed. 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 Tubal Patency Testing: Hycosy 03/2023 Sperm Source:Partner Fresh Treatment Protocol: Letrozole dose 2.5mg Monitoring Plan: Ultrasound monitoring day 12 or 13 Ovidrel Trigger: Yes Supplemental Progesterone: None Comments: none Duncan Guadalupe APRN.CNP 08/06/2023 Plan: Ovidrel ordered chart sent for financial authorization patient to call with menses to set up cycle. IUI checklist already complete Duncan Guadalupe APRN.CNP August 06, 2023 2:00 PM The following approved medication requests have been transmitted electronically. Requested Prescriptions Signed Prescriptions Disp Refills Choriogonadotropin Nikos,HumRec (OVIDREL) 250 mcg/0.5 mL syrg 1 Each 2 Sig: Inject 250 mcg subcutaneously one time only for [address] I spent a total of 25 minutes on the date of the service which included preparing to see the patient, [id number] patient care, completing clinical documentation, obtaining and/or reviewing separately obtained history, counseling and educating the patient/family/caregiver, ordering medications, tests, or procedures, and care coordination (not separately reported). To patients reading this note: Please be advised the primary purpose of this note is for me to communicate with myself and other members of your medical team. Standard sentence structure is not always used. Medical terminology and medical abbreviations may be used. There may be grammatical and typographical errors missed in proofreading. documented in this encounter [facility] 08-01-2023 History of Present illness Narrative Chief Complaint Patient presents with: Cough HPI Debra March is a 38 year old female who presents here today for an acute visit. Pt scheduled an acute visit for c/o of cough, chest congestion and wheezing. Pt here today to discuss possible allergic reaction to Fluoride toothpaste, which scared her. Used hydrogen peroxide swish-then used the fluoride toothpaste, after a while felt wheezy. After using the toothpaste she started experiencing wheezing. No pulmonary issues. Wants to discuss this. Currently has no symptoms and all symptoms resolved. Does state that her kids did test positive for Influenza B, but she's not experiencing anything. Pt was triaged by Nurse due to complaints. Pt states that on 07/30/23 she used Fluoride toothpaste that was prescribed by Dr. Benson for the week previously around 10 pm. Left it on for about 30 minutes and shortly after started to have some wheezing that lasted about 4 hours. Mills it was a little harder to breathe during that time. She believes she may of had a reaction to the toothpaste. Believes she may of in the past had a reaction to Fluoride and even mentioned this to her Dentist. Pt yesterday 07/31/23 is not having any wheezing or chest congestion at this time, just a mild cough intermittently with once productive sputum that was yellow. Reports kids have been sick as well-they reportedly had influenza B. Would like to keep appt to discuss. Past medical history, appointments, medications, allergies reviewed. Previous Medical History PAST MEDICAL HISTORY Diagnosis Date Factor 5 Leiden mutation, heterozygous (HCC) Migraine headache Mixed hypercholesterolemia and hypertriglyceridemia 2015 Previous Surgical History PAST SURGICAL HISTORY Procedure Laterality Date DELIVERY ONLY 11/02/15,01/09/19 , low transverse x 3 TONSILLECTOMY PRIMARY/SECONDARY <AGE 12 Tonsillectomy Family History FAMILY HISTORY Problem Relation Age of Onset Cancer Mother 55 multiple myeloma Hyperlipidemia Father Diabetes Father borderline Hyperlipidemia Brother Breast Cancer Maternal Grandmother Diabetes Maternal Grandmother Heart Maternal Grandmother Heart Maternal Grandfather Cancer Paternal Grandmother Brain Heart Paternal Grandfather Heart Attack Paternal Grandfather Patient Allergies ALLERGIES Allergen Reactions Amoxicillin Rash Ceftin [Cefuroxime * GI Upset Vomiting and diarrhea Ilosone Rash Naldecon Other: See Comments Penicillin Rash Phenylephrine Other: See Comments hallucinations Qtllxfiaxgk-Hd-Aclt* Other: See Comments hallucinations Pseudoephedrine Other: See Comments hallucinations Red Dye Other: See Comments hallucinations Current Medications Current Outpatient Medications on File Prior to Visit Medication Sig Sodium Fluoride (PREVIDENT 5000 ORTHO DEFENSE) 1.1 % 1 Application by DENTAL route once daily. Dx: dental caries letrozole (FEMARA) 2.5 mg tablet Take 1 tablet by mouth once daily. on cycle days 3-7 ubrogepant (UBRELVY) 100 mg tablet Take 1 tab as needed at onset of migraine. May repeat dose at 2 hours if needed. Max 200 mg per 24 hours. naproxen (NAPROSYN) 500 mg tablet Take 1 tablet two times per day (with meals) for 5-7 days for menstrual migraine. No current facility-administered medications on file prior to visit. Social History Social History Tobacco Use Smoking status: Never Smokeless tobacco: Never Vaping Use Vaping Use: Never used Substance Use Topics Alcohol use: Not Currently Drug use: No Review of Symptoms REVIEW OF SYSTEMS See HPI, otherwise negative EXAM: BP 116/78 (BP Site: Left Arm, BP Position: Sitting, BP Cuff Size: Regular Adult) Pulse 78 Resp 16 Wt 79.7 kg (175 lb 12.8 oz) LMP 07/10/2023 (Exact Date) BMI 32.35 kg/m General Appearance: Well appearing, alert, in no acute distress, well-hydrated, well nourished.. Lungs: Lungs clear to auscultation. No wheezing, rhonchi, rales.. Heart: RRR without murmur, gallop, or rubs. No ectopy. Psychiatric: pleasant, cooperative. Health Maintenance List DTaP,Tdap,Td Vaccine(1 - Tdap) Never done Hepatitis B Vaccine(1 of 3 - 19+ 3-dose series) Never done Influenza Vaccine(1) due on 11/18/2023 Covid-19 Vaccine( - 2022-24 season) due on 07/20/2024 Pap Testing due on 01/31/2028 HPV Testing due on 01/31/2028 Hepatitis C Screening Completed HIV Screening Completed HPV Vaccine Aged Out Data reviewed Previous records, office notes ASSESSMENT/PLAN: 1. Dbk-egjp-kwagbht adverse effect of medication, initial encounter - ICD9: E947.9, ICD10: T88.7XXA Suspect sx were r/t first swishing with hydrogen peroxide and then immediately using the toothpaste, causing a reaction together. She will stop with the peroxide and begin using the toothpaste again, but gradually work her way up to leaving it on her teeth for more extended periods of time. Anastasiya Erwin APRN.CRISTINA documented in this encounter [facility] 07-31-2023 Miscellaneous Notes Last night, pt used a fluoride toothpaste that Dr. Benson prescribed for her last week. Used it at about 10 pm last night-left on for about a half hour. Shortly after that, pt states she started to have some wheezing that lasted approximately 4 hours. Pt states it felt like it was a little harder to breath during that time. Pt feels like maybe she had a reaction to the fluoride toothpaste. She thinks another time in the past she might have had a reaction to fluoride and even mentioned it to her dentist. Pt is not having any wheezing or chest congestion at this time. States has a mild cough off and on productive one time this morning of yellow phlegm. Pt had called in earlier and had made an appt for tomorrow morning. She wants to keep that appt and discuss this with Anastasiya Erwin. Pt states also her kids have been sick as well. documented in this encounter [facility] 07-25-2023 History of Present illness Narrative IUI Wash Pre: 163 million/mL, 75% Post: 137 Million/mL, 97% Final Insem #: 53.2 Million IUI specimen released to provider Victorina León July 25, 2023 11:47 AM Debra March is here today for an IUI. LMP: 07/10/2023 Fertility Medication this cycle: letrozole 2.5mg (cycle day 3-7) IUI timed with OPK/Trigger: OPK test, Date: 07/24/2023 Arbitrator offered:Patient declines Teresa Mccloud RN July 25, 2023 11:43 AM documented in this encounter [facility] 07-25-2023 Procedure note WHI ALICE IUI PROCEDURE NOTE Date: 07/25/2023 Primary Proceduralist: Duncan Guadalupe APRN.CNP Consents and Labels Consent Signed: Informed Consent obtained and on the chart Labels Verified With Patient: Yes Indications: Debra March, is a 38 year old female here today for intrauterine insemination. IUI # 1. Cycle Day: 16 Last menstrual period: 07/10/2023 [place] Protocol: UNIVERSAL PROTOCOL / SAFETY CHECKLIST Procedure to be Performed: IUI Sign In: A Moment of CARE was completed. Personnel directly involved with the procedure wore the appropriate PPE (Personal Protective Equipment). Patient/Surrogate Stated/Verified: PATIENT VERIFIED(optional for EMERGENT procedures): Patient name, Date of , Relevant allergies, and The intended procedure Time Out Communication: Intended patient and procedure match the source documents. Consent documented and matches the intended procedure. Sign Out: SIGN OUT (optional for EMERGENT procedures): No specimen collected. All instruments, equipment, possible retained foreign bodies accounted for. Duncan Guadalupe APRN.CNP IUI IUI Date: 07/25/23 IUI Time: 11:58 AM EST IUI #: 1 Pre-Procedure Diagnosis: Infertility Post-Procedure Diagnosis: Infertility Cycle Meds: Letrozole 2.5 mg Luteal Phase Progesterone: N/A Trigger: LH Surge Date Catheter Type: Unisem catheter Tenaculum: No Catheter passed: Easy Complications: None Sperm Information: Source of Sperm: Partner Ejaculated: Yes Fresh/Frozen: Fresh TMC (total motile count of sperm after wash): 53.2 million Cycle reviewed, all questions answered. Pt instructed to take a test in 17 days if no menses and call with results. SIGNATURE: Duncan Guadalupe APRN.CNP PATIENT NAME: Debra March DATE: July 25, 2023 TIME: 2:23 PM documented in this encounter [facility] 07-21-2023 Instructions Frantz Benson DO - 07/21/2023 11:17 AM EST Probiotic supplement or yogurt daily- [employer] Good or [place] or [place] Special rx dental paste Dr. Hai Brumfield or Dr. Ciaran Lyons - dentist Dr. Jimenez - dentist Elevate head of bed 4-6 inches Pepcid 20-40 mg in the evening daily Biotene dry mouth product documented in this encounter [facility] 07-21-2023 History of Present illness Narrative CC: Debra March is a 38 year old female who presents to the office for physical HPI: Overall she is doing okay She is in the process of infertility assessment with specialist for potential upcoming IUI procedure. Has had Tara assessed by Urologist and he has been found to have a large varicocele. Considering surgical correction for him. She had SE of emotional lability on the Letrozole medication. Otherwise she isn't taking much medication. She states that she has had 5-6 Dental cavities and fractured tooth x 1-2 in the last 5-7 years since she has had her daughter. She is concerned about what she should be doing and need for specialized toothpaste and preventative dental care and doesn't feel her current dentist is doing this as well. Interested in getting a 2nd opinion. Does go for dental cleanings every 6 months. PAST MEDICAL HISTORY Diagnosis Date Factor 5 Leiden mutation, heterozygous (HCC) Migraine headache Mixed hypercholesterolemia and hypertriglyceridemia 2015 PAST SURGICAL HISTORY Procedure Laterality Date DELIVERY ONLY 11/02/15,01/09/19 , low transverse x 3 TONSILLECTOMY PRIMARY/SECONDARY <AGE 12 Tonsillectomy Social History: Social History Tobacco Use Smoking status: Never Smokeless tobacco: Never Vaping Use Vaping Use: Never used Substance Use Topics Alcohol use: Not Currently Drug use: No FAMILY HISTORY Problem Relation Age of Onset Cancer Mother 55 multiple myeloma Hyperlipidemia Father Diabetes Father borderline Hyperlipidemia Brother Breast Cancer Maternal Grandmother Diabetes Maternal Grandmother Heart Maternal Grandmother Heart Maternal Grandfather Cancer Paternal Grandmother Brain Heart Paternal Grandfather Heart Attack Paternal Grandfather Current Outpatient prescriptions: letrozole (FEMARA) 2.5 mg tablet Take 1 tablet by mouth once daily. on cycle days 3-7 ubrogepant (UBRELVY) 100 mg tablet Take 1 tab as needed at onset of migraine. May repeat dose at 2 hours if needed. Max 200 mg per 24 hours. naproxen (NAPROSYN) 500 mg tablet Take 1 tablet two times per day (with meals) for 5-7 days for menstrual migraine. Allergies: ALLERGIES Allergen Reactions Amoxicillin Rash Ceftin [Cefuroxime * GI Upset Vomiting and diarrhea Ilosone Rash Naldecon Other: See Comments Penicillin Rash Phenylephrine Other: See Comments hallucinations Uxtrrabrkxk-Nr-Gnmt* Other: See Comments hallucinations Pseudoephedrine Other: See Comments hallucinations Red Dye Other: See Comments hallucinations ROS: See HPI PE: 07/21/23 1040 BP: 110/60 Pulse: 80 Resp: 16 Temp: 36.3 C (97.3 F) TempSrc: Right Tympanic Weight: 80.7 kg (178 lb) Height: 157 cm (5' 1.81") Gen: A&O, NAD, non-toxic appearing, Pleasant, cooperative HEENT: NT/AC, PERRLA, EOMs intact b/l, nares clear and patent b/l, pharynx without erythema, exudate or lesions. Uvula midline. MMM, EACs without erythema or debris. TMs pearly cardenas with intact landmarks b/l. Neck: supple, No cervical LAD, no thyromegaly, no carotid bruits CV: RRR, normal S1 and S2, no murmurs, no gallops, no rubs, Pulses 2+ and symmetric in UE and LE b/l Lungs: normal respiratory effort, CTA b/l, no wheezing or rhonchi or rales Abd: soft, overweight, NT, ND, +BS, no hepatosplenomegaly MS: FROM all 4 extremities Neuro: CN II-XII intact b/l, strength 5/5 b/l UE and LE, DTRs 2/4 UE and LE, sensation intact. Skin: warm, dry, intact, No rashes or lesions on exposed skin. No edema, normal pulses ASSESSMENT/PLAN: 1. Well adult exam - ICD9: V70.0, ICD10: Z00.00 (primary diagnosis) - Counseled on healthy diet and regular exercise - Calcium intake with supplements or by diet of 1000 mg/day for under 50, 3011-9849 mg/day for 50+ - Discussed need and benefit for weight loss. BMI 32.76 kg/(m^2) 2. Other migraine without status migrainosus, not intractable - ICD9: 346.80, ICD10: G43.809 stable 3. Factor 5 Leiden mutation, heterozygous (HCC) - ICD9: 289.81, ICD10: D68.51 Hx of, has had a miscarriage, f/u with [facility] 4. Class 1 obesity with body mass index (BMI) of 32.0 to 32.9 in adult, unspecified obesity type, unspecified whether serious comorbidity present - ICD9: 278.00, V85.32, ICD10: E66.9, Z68.32 Stable - Behavioral intervention, - [facility], and - Eat well program 5. Dental caries - ICD9: 521.00, ICD10: K02.9 Recommend special fluoride toothpaste, consider elevate HOB to help prevent dental caries risk, recommend consideration of adding probiotic and pepcid to regiment and more frequent preventative dental visits for cleanings etcc Frantz Benson DO To ER if develops chest pain, shortness of breath, or severe worsening of symptoms. Discussed risks, benefits, alternatives, and potential side effects of medications. Patient expressed understanding and agreed with the plan. Frantz Benson DO [address] [place] [address] documented in this encounter [facility] 07-17-2023 History of Present illness Narrative Images from the original note were not included. REPRODUCTIVE ENDOCRINOLOGY AND INFERTILITY IUI TEACH SERVICE DATE: July 17, 2023 SERVICE TIME: 9:21 AM NAME: Debra March Patient Update Reason for note: IUI Checklist Review HPI Primary ALICE Physician: Dr. Perez IUI Treatment Plan: ALICE IUI Treatment Plan: Patient summary: Debra March is a 38 year old female with infertility. Possible age-related. Could also be male factor. Last SA showed lower sperm motility. However, they conceived and had miscarriage in 12/10. Discuss options. They are more comfortable with non-medicated IUI. At this time, they are not interested in OI or any hormone treatments. Tubal Patency Testing: Other: HyCoSy 03/2023 Sperm Source:Partner Fresh Treatment Protocol: Natural Cycle Monitoring Plan: OPKs Ovidrel Trigger: No Supplemental Progesterone: None Comments: recommend follow up with me after 1-2 cycles of non medicated IUI. Farideh Perez MD 06/25/2023 Partner's name/MRN: Tara March, LMP: 07/10/2023 IUI Checklist: Consultation: done 06/25/2023 Registration of patient and partner: yes Financial Clearance: documented in [facility] 07/04/2023 by Katie Ellis IUI Patient Education: ASRM IUI Patient Fact Sheet - sent via [employer] IUI Consent Form: signed 07/11/2023 Wash Orders: entered 07/11/2023 Medications ordered: 07/11/2023 Screening of patient: complete - results below Screening of partner: complete - results below Results Patient Results PAP/HPV - 01/30/2023 normal- records received Component Latest Ref Rng & Units 02/22/2023 03/09/2023 ABO O Rh(D) Positive Antibody Screen Negative Type+Scr Expiration 03/12/2023 23:59 Historical Ab Scr Status NEGATIVE Hemoglobin A1C 4.3 - 6.0 % 5.6 Estimated Average Glucose mg/dL 114 Component Latest Ref Rng & Units 07/12/2023 ABO O Rh(D) Positive Antibody Screen Negative Type+Scr Expiration 07/15/2023 23:59 Historical Ab Scr Status NEGATIVE Neisseria gonorrhoeae (GC) Negative for Neisseria gonorrhoeae by amplification Negative for Neisseria gonorrhoeae by amplification Chlamydia trachomatis (CT) Negative for Chlamydia trachomatis by amplificaton Negative for Chlamydia trachomatis by amplification Syphilis Screen Result Nonreactive Nonreactive Rubella IgG, Qual Positive Positive Hep C Antibody IA Nonreactive Nonreactive Hep B Surface Ag Equivocal, Nonreactive Nonreactive HIV 12 Combo (Ag/Ab) Nonreactive Nonreactive HSG done 03/27/2023 Ultrasound done 12/23/2022 Patient declined genetic screening. 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 IUI Checklist Complete. Spoke with Debra, patient informed she can proceed with IUI. Duncan Guadalupe APRN.CNP July 17, 2023 9:27 AM DANNIE Perez. documented in this encounter [facility] 07-17-2023 Miscellaneous Notes Patient is calling again regarding IUI. Wants to make sure we have all info needed. She thinks she will be doing IUI in the next couple of days. Patient called to update nurses about her IUI checklist. She uploaded her pap results and had her blood work as well. Just wants ot make sure she isnt missing anything before she does her IUI documented in this encounter [facility] 07-11-2023 History of Present illness Narrative Images from the original note were not included. [facility] IUI TEACH SERVICE DATE: 07/11/2023 SERVICE TIME: 2:37 PM NAME: Debra March VIRTUAL VISIT PROGRESS NOTE This is a virtual visit. It required patient-provider interaction for the medical decision making as documented below. Patient name and birthday verified: Yes Location of patient: home Persons Present: patient I have communicated my name and active licensure. The patient's identity and physical location were verified at the time of this visit. Either the patient or their legal business development representative has been informed of the risks and benefits of -- and alternatives to -- treatment through a remote evaluation and consents to proceed with the evaluation remotely. Reason for visit: IUI Teach [facility] Primary ALICE Physician: Dr. Perez IUI Treatment Plan: ALICE IUI Treatment Plan: Patient summary: Debra March is a 38 year old female with infertility. Possible age-related. Could also be male factor. Last SA showed lower sperm motility. However, they conceived and had miscarriage in 12/10. Discuss options. They are more comfortable with non-medicated IUI. At this time, they are not interested in OI or any hormone treatments. Tubal Patency Testing: Other: HyCoSy 03/2023 Sperm Source:Partner Fresh Treatment Protocol: Natural Cycle Monitoring Plan: OPKs Ovidrel Trigger: No Supplemental Progesterone: None Comments: recommend follow up with me after 1-2 cycles of non medicated IUI. Farideh Perez MD 06/25/2023 Patient had questions about natural cycle versus Letrozole. OPK versus midcycle ultrasound and trigger shot. She would like the ability to use Letrozole - reviewed instructions, side effects and risks. She can choose to do natural cycle/IUI or Letrozole/IUI. Partner's name/MRN: Tara March, LMP: 07/10/2023 IUI Checklist: Consultation: done 06/25/2023 Registration of patient and partner: yes Financial Clearance: documented in [facility] 07/04/2023 by Katie Ellis IUI Patient Education: ASRM IUI Patient Fact Sheet - sent via [employer] IUI Consent Form: sent electronically Wash Orders: entered 07/11/2023 Medications ordered: 07/11/2023 Screening of patient: pending Rubella Titer (IgG) (for each /delivery) Varicella - had as a child ABO/RH (Blood Type), plus Antibody Screen (once) for each Annual gynecology exam within a year and up-to-date Pap smear Mammogram up-to-date (if age 40 or above) Infectious disease screening (for each ongoing ) HIV 1/2 Hepatitis B Surface Antigen Hepatitis C Antibody T. Pallidum antibody or RPR (Syphilis) Cervical culture or urine for GC/CT Genetic carrier screening - declined screening Hemoglobin A1c if BMI > 30 Pelvic ultrasound if not performed within the past year Tubal patency assessment unless waived by primary ALICE clinician (hysterosalpingogram (HSG), or sonogram HSG) Screening of partner SA - done Genetic Carrier Screen - declined screening Results Patient Results PAP/HPV - done at outside facility, need records Component Latest Ref Rng & Units 02/22/2023 03/09/2023 ABO O Rh(D) Positive Antibody Screen Negative Type+Scr Expiration 03/12/2023 23:59 Historical Ab Scr Status NEGATIVE Hemoglobin A1C 4.3 - 6.0 % 5.6 Estimated Average Glucose mg/dL 114 HSG done 03/27/2023 Ultrasound done 12/23/2022 Patient declined genetic screening. 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 Pending items that need to be completed before patient can proceed with IUI: STD Screening Rubella Titer Results of most recent PAP/HPV Consent for IUI Duncan Guadalupe APRN.CNP July 11, 2023 2:37 PM I spent a total of 45 minutes on the date of the service which included preparing to see the patient, [id number] patient care, completing clinical documentation, obtaining and/or reviewing separately obtained history, counseling and educating the patient/family/caregiver, ordering medications, tests, or procedures, and care coordination (not separately reported). To patients reading this note: Please be advised the primary purpose of this note is for me to communicate with myself and other members of your medical team. Standard sentence structure is not always used. Medical terminology and medical abbreviations may be used. There may be grammatical and typographical errors missed in proofreading. documented in this encounter [facility] 07-10-2023 Miscellaneous Notes Patient is unsure if she should take Letrozole She said Dr told her she would take it this month then she was told Dr didn't want her on anything. Please call patient to clarify. documented in this encounter [facility] 07-09-2023 Miscellaneous Notes Called the patient she verified her name and date of Patient wants letrozole for IUI Period should start today Marilee Aburto RN July 09, 2023 9:08 AM Please follow up with patient, has multiple questions. Patient has questions re letrozole, requires prescription. IUI-CLEARED PLAN WILL COVER NO PA REQUIRED US ARE TO BILL TO INSURANCE Hi Ivelisse, They are cleared I took care of it Patient and spouse have contacted office 3 times now about getting clearance for her IUI. Patient is looking to start IUI and will need financial clearance. documented in this encounter [facility] 05-04-2023 History of Present illness Narrative Program_ID:[id number] Access Code: [email or web address] URL: [email or web address] Date: 05-04-2023 Prepared By: Katie Rose Program Notes Exercises - Supine Diastasis Recti Correction with Sheet - 1 x daily - 7 x weekly - 1-3 sets - 10 reps - Prone on Elbows Thoracic Rotation - 1 x daily - 7 x weekly - 1 sets - 10 reps - Quadruped Thoracic Rotation Full Range with Hand on Neck - 1 x daily - 7 x weekly - 1 sets - 10 reps - Supine Transversus Abdominis Bracing - Hands on Thighs - 1 x daily - 7 x weekly - 1 sets - 10 reps Episode Visit Count: 1 Therapist That Will Accept/Oversee The Plan Of Care: Ivelisse Rose PT Start of Care Date: 05/04/23 Onset Date: 03/23/23 Patient Identified by Name and Date of : Yes REHABILITATION AND SPORTS THERAPY PHYSICAL THERAPY EVALUATION PLAN OF CARE: Assessment: Debra March presents with chief complaint of intermittent lower back pain that interferes with nothing . She presents with impairments in strength. PROMIS (Patient-Reported Outcomes Measurement Information System) scores were reviewed and all domains identified as within normal limits. Prognosis for therapy is Good due to: current objective clinical presentation, positive past response to therapy . She will benefit from skilled therapy services to meet the goals established for this plan of care as noted below. Goals for Episode of Care: created on 05/04/23 through 06/01/23 [place] in home exercise program. Increased strength of rectus abdominus to decrease diastasis recti. Improve flexibility of lumbar spine for pain free full mobility to improve mechanices. Improve postural awareness. Patient Goals: Learn what to do about preventing recurrence Planned Interventions, Frequency, and Duration: Current Frequency: (as needed) Duration: 4 weeks Total Number of Visits Planned: 4 Planned Treatment Interventions: Therapeutic exercise (94059), Self-fci management (37133) PLAN FOR NEXT VISIT: Pt to trial independent exercise and return as needed if she would like progressions Patient demonstrates good understanding of plan of care and treatment. The above goals and plan of care were discussed and agreed upon by patient/family. SUBJECTIVE: Patient Goals: Learn what to do about preventing recurrence Functional Limitations: nothing Patient reports she hurt her back about 2 months ago while cleaning out her garage and being in a bent over position for about an hour. She reports pain mostly on the left side of her lower back but denies any leg pain. She states she started feeling better about a month later. She was having difficulty sleeping through the night. She reports no current pain or difficulty sleeping, but is concerned about possibly having pain once again. She is not currently taking any pain medication. 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 Home Environment Home Type: Multi-Level Laundry: Maintaining independence with household ADL's - some lifting of 2 year old, but helps Intake Information: Prescription present Previous Treatment: Physical Therapy Falls Interview: No positive findings with falls interview Spine History Symptoms Location at Onset: Back Pain: Pain Pain Level: 0 Pain Location: Back PROMIS Scales Higher is Better 05/04/2023 08/18/2021 07/22/2021 Phys Func - Score 48 (within normal limits) 42 (mild dysfunction) 35 (moderate dysfunction) Phys Func - Percentile 42% 21% 7% Self-Eff Symptom - Score 50 (Average) 41 (Average) - Self-Eff Symptom - Percentile 50% 18% - T-scores: mean of general population = 50. 5 points is clinically meaningfully difference Percentiles provide an indication of how the patient's score ranks in relation to the general population. Higher percentile rankings indicate better function/quality of life. 50th percentile is the average of the general population and indicates half of respondents had a worse score. OBJECTIVE MEASURES WITH LEVEL OF FUNCTION: Posture / Alignment Posture: Forward head, Increased thoracic kyphosis Lumbar Spine AROM Lumbar Flexion: Moderate limitation Lumbar Extension: Moderate limitation Lumbar R Rotation: Moderate limitation Lumbar L Rotation: Moderate limitation LE Strength Trunk Strength: 2 finger diastasis recti above umbilicus & 1 finger below R Hip Flexion (L2): 4/5 L Hip Flexion (L2): 4/5 Education: Education Learning Preferences: Explanation, Performance, Printed Materials Barriers: None Learning/educational needs: Home exercise program, Plan of Care Education Provided: Yes, see treatment interventions for education provided Education Provided To: Patient Education Mode/Type: Explanation/Discussion, Literature/Printed Materials, Performance Response to Education/Teach Back: States/Identifies, Return Demonstration TREATMENT: PT Treatment Interventions: Therapeutic Exercise, Self-Longterm Management Evaluation Evaluation Therapeutic Exercise: 1: *Education for diastasis correction 2: *prone on elbows trunk rotation 3: *quadriped trunk rotation 4: *Education for returning to previous HEP program consistently for stability Skilled Intervention: Provided written instruction for home exercise program to facilitate proper performance and compliance. Self-Longterm Management: 1: pt educated on exam findings & agreeable to plan of care Skilled Intervention: Reviewed patient specific diagnosis in relation to activities of daily living/home management. Access Code: [email or web address] URL: [email or web address] Date: 05/04/2023 Prepared by: Katie Rose Exercises - Supine Diastasis Recti Correction with Sheet - 1 x daily - 7 x weekly - 1-3 sets - 10 reps - Prone on Elbows Thoracic Rotation - 1 x daily - 7 x weekly - 1 sets - 10 reps - 5 sec hold - Quadruped Thoracic Rotation Full Range with Hand on Neck - 1 x daily - 7 x weekly - 1 sets - 10 reps - 5 sec hold - Supine Transversus Abdominis Bracing - Hands on Thighs - 1 x daily - 7 x weekly - 1 sets - 10 reps - 5 sec hold Billing * Evaluation Low Complexity: 1 Unit Therapeutic Exercise Treatment Minutes: 15 Self-Care/Home Management Treatment Minutes: 10 Skilled Treatment Time Minutes (timed and untimed codes): 40 Total Session Time (minutes): 41 Session Start Time : 903 Session Stop Time : 944 Katie Rose PT documented in this encounter [facility] 04-27-2023 Miscellaneous Notes Discussed results of US - recommend observation at this time. She will follow up in 4-6 months for recheck. Patient would like to discuss the results of her US. Please call patient back at [phone]. see below message. Patient is calling for the results of the neck ultrasound. She is also asking if whatever that is can be excised? documented in this encounter [facility] 04-24-2023 Miscellaneous Notes DEBRA WHEELERARIA (Jarquin: [id number])Need help? Call us at Outcome N/A This drug is too soon to refill. Please advise the pharmacy to either resubmit on the next fill date or contact the Pharmacy Help Line at for assistance Next Steps The plan will fax you a determination, typically within 1 to 5 business days. Called pharmacy-patient can fill med today. Radha Glass RN prior authorization submitted via cover my meds DEBRA MARCH (Jarquin: [id number]) Still need to answer questions Radha Glass RN documented in this encounter [facility] 04-23-2023 Miscellaneous Notes Called patient. She feels that the nurtec made her headache much worse-nauseous, vomitting, pain 4 to 8. Went to ED, got migraine cocktail. She is feeling much better today, but does not want to take the Nurtec again. She would be open to going back to [facility], she cannot take triptans. Unless Dr. Manzo has any other recommendations. She is aware Dr. Hall is not in the office today. Radha Glass RN NI PHONE Name of caller : Debra Relationship to patient : Self If not self Will need patient permission to release results or disclose health information with called documented in . Was permission obtained from patient ? Yes Patient identified by Name and Date of . ( Debra Wheeleraria, 1985). Yes Reason for Call : Other Patient took Nurtec for first time on Sunday. She was so sick she went to the ER. It made her migraine worse. Number to return call [phone] Okay to leave a message ? Yes Last office visit 04/05/23 with Arlet Next office visit Not scheduled. Thank you calling [facility] [place]. You will receive a return call within 48 hours ( or 2 business days if close to the weekend). If you feel that this is an urgent issue and needs immediate attention, it is recommended that you contact your primary care provider office or proceed to your nearest Urgent Care Center of Emergency Room ED for evaluation/treatment. documented in this encounter [facility] 04-20-2023 Miscellaneous Notes Sent to Kristin for Clarification. Coding was changed for day of visit on 02/05/23, is there another form I need to complete? Please clarify Frantz Benson DO Patient's was in to see Fariba today. He was requesting a note be sent to you on his Debra . States was in to see you on Feb.21 for a yearly physical. He thyroid labs were coded under that as dx. So insurance will not pay. Asking for them to be coded under her thyroid dx. And resubmitted to insurance. documented in this encounter [facility] 04-19-2023 History of Present illness Narrative Radiology Service Progress Note PATIENT NAME: Debra March DATE OF SERVICE: April 19, 2023 TIME: 12:25 PM PATIENT IDENTITY VERIFICATION COMPLETED USING TWO (2) IDENTIFIERS: Name and Date of confirmed by patient verbally. FALL SCREENING: Has the patient had 2 falls in the last year or 1 fall with injury or currently using an Ambulatory Assistive Device (Walker, Cane, Wheelchair, Crutches, etc.)? No PATIENT GENDER DATA: Female. status: Unknown status: N/A PATIENT RELEVANT IMPLANT DATA REVIEWED: Not Applicable RADIOLOGY DEPARTMENT: Ultrasound PERIPHERAL IV DATA: Not applicable SIGNED BY: RT Victoriano(R) April 19, 2023 12:25 PM documented in this encounter [facility] 04-06-2023 Miscellaneous Notes Images from the original note were not included. Prior Authorization for Medications Requested by ([facility], Pharmacy, Patient Call, Fax) : Patient call Pharmacy Name: [facility] Phone # : [phone] Name of Medication : rimegepant (NURTEC ODT) Dose : 75 mg disintegrating tablet To dispense 8 tablets. If renewal, auth date expiration: na Prescribing Provider: Arlet Last OV: 04/05/2023 with Arlet Insurance Provider : MMO Is insurance card scanned in, including Rx info? Yes CoverMyMeds Jarquin: na E-PA? Yes documented in this encounter [facility] 04-06-2023 History of Present illness Narrative OTOLARYNGOLOGY-HEAD AND NECK SURGERY CC: Debra March is a 38 year old female who is seen at the request of Frantz Benson DO for evaluation of neck mass. My findings and recommendations will be communicated to the referring provider via the shared electronic medical record. Assessment: Localized enlarged lymph nodes (primary encounter diagnosis) Plan: - Recommend CT neck for further evaluation - Will call with results Maliha Salas MD HPI: Mrs. March is a 38 y/o F who presents for evaluation of neck mass. It has been present for about 1.5 years. Usually fluctuates in size related to illnesses. It is bothersome to her during these illnesses. ALLERGIES Allergen Reactions Amoxicillin Rash Ceftin [Cefuroxime * GI Upset Vomiting and diarrhea Ilosone Rash Naldecon Other: See Comments Penicillin Rash Phenylephrine Other: See Comments hallucinations [id number]* Other: See Comments hallucinations Pseudoephedrine Other: See Comments hallucinations Red Dye Other: See Comments hallucinations Current Outpatient Medications Medication Sig rimegepant (NURTEC ODT) 75 mg disintegrating tablet Take 1 dissolvable tablet by mouth at migraine onset. Take only 1 tablet per 24 hours. naproxen (NAPROSYN) 500 mg tablet Take 1 tablet two times per day (with meals) for 5-7 days for menstrual migraine. doxycycline (VIBRA-TABS) 100 mg tablet Take 1 tablet by mouth two times a day for 7 days. (Patient not taking: Reported on 04/06/2023) No current facility-administered medications for this visit. PAST MEDICAL HISTORY Diagnosis Date Factor 5 Leiden mutation, heterozygous (HCC) Migraine headache Mixed hypercholesterolemia and hypertriglyceridemia 2015 PAST SURGICAL HISTORY Procedure Laterality Date DELIVERY ONLY 11/02/15,01/09/19 , low transverse x 3 TONSILLECTOMY PRIMARY/SECONDARY <AGE 12 Tonsillectomy Social History: Social History Tobacco Use Smoking status: Never Smokeless tobacco: Never Vaping Use Vaping Use: Never used Substance Use Topics Alcohol use: Not Currently Drug use: No FAMILY HISTORY Problem Relation Age of Onset Cancer Mother 55 multiple myeloma Hyperlipidemia Father Diabetes Father borderline Hyperlipidemia Brother Breast Cancer Maternal Grandmother Diabetes Maternal Grandmother Heart Maternal Grandmother Heart Maternal Grandfather Cancer Paternal Grandmother Brain Heart Paternal Grandfather Heart Attack Paternal Grandfather ROS: GENERAL: No weight loss, malaise or fevers. HEENT: See HPI NECK: See HPI RESPIRATORY: Negative for cough, hemoptysis, wheezing or shortness of breath CARDIOVASCULAR: Negative for chest pain, leg swelling or palpitations. GASTROINTESTINAL: No nausea, vomiting, or diarrhea MUSCULOSKELETAL: Negative for joint pain or swelling, back pain or muscle pain. NEUROLOGIC: Negative for focal numbness or weakness, headaches and dizziness or syncope. SKIN: Negative for lesions, rash, and itching. HEMATOLOGIC/LYMPHATIC/IMMUNOLOGIC: Negative for prolonged bleeding, bruising easily or swollen nodes. ENDOCRINE: Negative for cold or heat intolerance, polyuria, polydipsia and goiter. PHYSICAL EXAM: On physical examination Debra March is a well-developed, well nourished female. Her speech is normal and her voice is strong. Mental status revealed patient to be alert and oriented. Mood is appropriate. Details of the physical examination: HEAD AND FACE: Physical examination of the head, neck, external nose, external ears, mouth and face fails to demonstrate any significant abnormality or asymmetry to critical face to face observation. Skin and scalp are normal. EARS: RT Canal: patent RT Drum: intact RT Pneumotoscopy: mobile LT Canal: patent LT Drum: intact LT Pneumotoscopy: mobile NOSE: Examination of the nasal cavity revealed a septum which is deviated. The mucosa is pink, and the visible turbinates are normal on anterior rhinoscopy. There is no purulence or polyps. MASTICATION: The teeth appear in good condition. The lips and gums are without lesions. ORAL CAVITY AND OROPHARYNX: The oral mucosa, hard and soft palates, tongue, tonsil area, and posterior pharyngeal wall are without lesions. NECK: The neck appears symmetric without scars. On palpation, there is a 1cm right level II mass, mobile and soft. Maliha Salas MD documented in this encounter [facility] 04-05-2023 History of Present illness Narrative Images from the original note were not included. Headache and Facial Pain [facility] [place] [address], [address] [address] I have communicated my name and active licensure. The patient's identity and physical location were verified at the time of this visit. Either the patient or their legal business development representative has been informed of the risks and benefits of -- and alternatives to -- treatment through a remote evaluation and consents to proceed with the evaluation remotely. CC: Migraine Virtual Follow-up Visit Last visit: 02/13/2022 - naproxen mini prevention prescribed for menstrual migraine Interval History: Overall headaches have been stable The last few times that she has taken Ubrelvy, she has felt more anxiety (increased worry and some palpitations, though HR was low). She feels back to baseline the following day. Ubrelvy does help headaches Answers submitted by the patient for this visit: Headache Questionnaire (Submitted on 04/05/2023) In the last month, how many headache days did you experience ALL of the following symptoms: decreased productivity, light sensitivity and nausea?: 3 How many days have you been completely free of headache pain in the last month? : 25 Headache days per month: 3-5 Headache free days per month: 25 Current Headache Regimen: Preventative: none Abortive: Ubrelvy Naproxen Prior Therapies Duration of Use Dose Side effect Analgesic Butalbital/acetaminophen/caffeine (Fioricet) no benefit Anti-Migraine Lasmiditan (Reyvow) palpitations Rizatriptan (Maxalt) palpitations Sumatriptan (Imitrex, Sumavel) palpitations Zolmitriptan (Zomig) palpitations GEPANTS Ubrogepant (Ubrelvy) Over the Counter Medications Acetaminophen (Tylenol) Acetaminophen/Aspirin/Caffeine (Excedrin, Goody s) Naproxen sodium (Aleve) KP review: HEADACHE SCORES: Headache Questions 02/13/2022 09/22/2022 ER visits since last office visit: 0 0 Hospital stays since last office visit 0 0 Limited ADLs in the last month: 2 3 Days missed from work or school in the last month: 0 - Days headache pain free in the last month: 20 27 Days per month with ALL of the following symptoms - decreased productivity, light sensitivity and nausea: 2 3 Initial improvement of headache after botox injection at last visit: - Not applicable, I did not have a botox injection at my last visit PRN medication usage in the last month: 10 - Patient impression of improvement since last visit: No change Minimally worse HIT-6 02/13/2022 09/22/2022 HIT-6 60 (Severe impact) 58 (Substantial impact) DIANA - 2/7 SCORES 12/04/2016 02/13/2022 09/22/2022 DIANA-2 Score 0 1 0 Migraine Specific QOL - Higher scores indicate better HRQL 02/13/2022 09/22/2022 Role Function-Restrictive Transformed Score (range: 0-100) 60 80 Role Function-Preventive Transformed Score (range: 0-100) 60 80 Emotional Function Transformed Score (range: 0-100) 60 80 PHQ-9 08/17/2021 02/13/2022 09/22/2022 Score 0 0 0 Limited Physical Exam on VV: Vital Signs: LMP 03/19/2023 (Exact Date) GENERAL: well appearing, in no acute distress, alert HEAD: Normocephalic/atraumatic. NEUROLOGICAL: Mental Status: Alert, oriented to person, place and time, Follows commands, and Speech fluent and appropriate. Cranial Nerves: face symmetric, no dysarthria, hearing grossly intact Motor: moves all extremities equally IMPRESSION: 38 year old woman with PMH of HLD, Factor V Leiden mutation, Migraine, pre-DM, obesity presenting for follow up for Episodic Migraine and Menstrual Migraine. Migraines are stable, occurring 3-5 days per month. Ubrelvy is effective as a rescue but she is now endorsing side effects of anxiety and palpitations the last few times she has taken it. Discussed that those are not common side effects of Ubrelvy, but we can trial a different gepant to see if she tolerates better. PLAN: Stop Ubrelvy Trial Nurtec 75 mg prn migraine Follow-up: 6 months I spent a total of 15 minutes on the date of the service which included preparing to see the patient, [id number] patient care, completing clinical documentation, obtaining and/or reviewing separately obtained history, performing a medically appropriate examination, counseling and educating the patient/family/caregiver, and ordering medications, tests, or procedures. The above plan discussed with the patient. All questions answered. The patient verbalized understanding. Medical decision making was high complexity due to patient's multiple symptoms including Headache and pain, and counseling about diet, medications, and usp implications. The patient has my contact information and my chart sign up information. Catarina Manzo MD Neurology Staff 04/05/2023 We will get a precert for an Oral Calcitonin Gene-Related Peptide Receptor Antagonist (GEPANT) Rimegepant for the rescue treatment of episodic migraine. This patient meets AHS criteria for treatment of migraine with an oral small molecule CGRP antagonist GEPANT. The FDA has approved GEPANTS for the treatment of migraine. Specifically, the patient has 5 headaches per month, lasting 4 or more hours/day associated with photophobia, phonophobia, nausea for three or more months. Medication overuse headache has been ruled out.Patient will not use with another GEPANT. The patient has tried and failed the following : The following preventative medications have been tried without benefit: The following abortive medications have been tried but require high frequency use which can lead to Medication Overuse Headache: Analgesic Butalbital/acetaminophen/caffeine (Fioricet) no benefit Anti-Migraine Lasmiditan (Reyvow) palpitations Rizatriptan (Maxalt) palpitations Sumatriptan (Imitrex, Sumavel) palpitations Zolmitriptan (Zomig) palpitations GEPANTS Ubrogepant (Ubrelvy) Over the Counter Medications Acetaminophen (Tylenol) Acetaminophen/Aspirin/Caffeine (Excedrin, Goody s) Naproxen sodium (Aleve) documented in this encounter [facility] 03-27-2023 History of Present illness Narrative Debra March is a 38 year old here for SIS. Referred by: Farideh Perez [id number] [facility] [id number] Chief Complaint: evaluate uterine cvaity Endometrial Biopsy: No Ultrasound: No Hormonal therapy: No. LMP: Patient's last menstrual period was 03/19/2023 (exact date). Cycles: PERIOD REGULARITY: regular q 28-30 days Contraception: none HCG: negative UNIVERSAL PROTOCOL / SAFETY CHECKLIST Procedure to be Performed: Saline Infused sonohysterography Hycosy Sign In: A Moment of CARE was completed. Personnel directly involved with the procedure wore the appropriate PPE (Personal Protective Equipment). No special equipment needed. Patient/Surrogate Stated/Verified: PATIENT VERIFIED(optional for EMERGENT procedures): Patient name, Date of , Relevant allergies, and The intended procedure Time Out Communication: Intended patient and procedure match the source documents. Consent documented and matches the intended procedure. Relevant labs, photos, and/or imaging studies have been reviewed. No correct side/site applicable for marking and visibility. No medications required for procedure. Fire risk assessed and interventions discussed. No implant(s) inserted. Sign Out: SIGN OUT (optional for EMERGENT procedures): No specimen collected. All instruments, equipment, possible retained foreign bodies accounted for. Post-procedure follow-up management communicated and Plan of Care Visit completed when applicable. PROCEDURE: EXTERNAL GENITALIA: Normal in appearance without lesions VAGINA: Normal in appearance without lesions Speculum placed into the vagina with excellent visualization of the cervix. Anterior lip of cervix grasped with single toothed tenaculum. SIS catheter inserted into the uterus without difficulty. Speculum removed and 23 mL sterile saline injected into the uterine cavity under ultrasound guidance. Procedure Summary: Patient tolerated procedure well. See ViewPoint for procedure results. Ramirez Lua MD documented in this encounter [facility] 03-21-2023 Miscellaneous Notes Patient called to start Auth process for SIS. There is no order in system, but there is for Hycosy. Is this the test the patient needs completed? documented in this encounter [facility] 03-12-2023 Instructions Perla Davis PA-C - 03/12/2023 11:50 AM EDT SORE THROAT INSTRUCTIONS SORE THROAT OVERVIEW - Sore throat is a common problem during childhood, and is usually the result of a bacterial or viral infection. Although sore throat usually resolves without complications, it sometimes requires treatment with an antibiotic. There are some less common causes of sore throat that are serious or even life-threatening. This topic will discuss the most common causes and treatments of sore throat in children, as well as the warning signs of more serious conditions. SORE THROAT CAUSES - The most likely cause of a child's sore throat depends upon the child's age, the season, and the geographic area. While viruses are the most common cause of sore throat, bacteria are another common cause. Bacteria and viruses are spread from one person to another through hand contact. Hands get contaminated when the sick individual touches their nose or mouth and then touches another person directly (wihi-lw-rtgu contact) or indirectly (kgej-zk-dufkmj, such as doorknob, telephone, toys). It is difficult to determine the cause of sore throat based upon symptoms alone; an examination and laboratory test are recommended in most cases Viruses - There are many viruses that can cause pain and swelling of the throat. The most common include viruses that cause sore throat as part of an upper respiratory infection, such as the common cold. Other viruses that cause sore throat include influenza, adenovirus, and Sussy-Gomes virus (the cause of mononucleosis). Symptoms - Symptoms that may occur with a viral infection can include a runny nose and congestion, irritation or redness of the eyes, cough, hoarseness, soreness in the roof of the mouth, a skin rash, or diarrhea. In addition, children with viral infections may have a fever and may feel miserable. A high fever does not necessarily mean that the child has a bacterial infection. Group A streptococcus - Group A streptococcus (GAS) is the name of the bacterium that causes strep throat. Although other bacteria can cause a sore throat, GAS is the most common bacterial cause; up to 30 percent of children with a sore throat will have GAS. Strep throat usually occurs during the winter and early spring, and is most common in school-age children and their younger siblings. Symptoms - Symptoms of strep throat in children older than 3 years often develop suddenly and include fever (temperature ?100.4 F or 38 C), headache, abdominal pain, nausea, and vomiting. Other symptoms can include swollen glands in the neck, white patches of pus in the back or sides of the throat, small red spots on the roof of the mouth, and swelling of the uvula. A cough and cold are not commonly seen in children with strep throat. Strep throat is uncommon in children younger than age 2 to 3 years. However, GAS infection can occur in younger children, and may cause a runny nose and congestion that is prolonged, low-grade fever (?101 F or 38.3 C), and tender glands in the neck. Infants younger than 1 year may be fussy and have a decreased appetite and low-grade fever. SORE THROAT TREATMENT - The treatment of sore throat depends upon the cause; strep throat is treated with an antibiotic while viral pharyngitis is treated with rest, pain relievers, and other measures to reduce symptoms. Strep throat - Strep throat is usually treated with an antibiotic, such as penicillin, or an antibiotic similar to penicillin (eg, amoxicillin). Children who are allergic to penicillin will be given an alternate antibiotic. The antibiotic is usually given in pill or liquid form two or three times per day. A one-time injection is also available, and may be recommended if a child is unwilling to take an oral medication. After completing 24 hours of antibiotics, the child is no longer contagious and may return to school. Symptoms usually improve within 1 to 2 days. However, it is important for the child to finish the entire course of treatment (usually 10 days). If a child does not begin to improve or worsens within 3 days, the child should be reevaluated. Throat pain can be treated with a non-prescription pain medication, if needed. (See 'Pain medications' below.) In addition, parents should monitor their child for dehydration, which can develop if the child is not willing to drink or eat due to a sore throat. (See 'Monitor for dehydration' below.) Viral throat pain - Sore throat caused by viral infections usually last 4 to 5 days. During this time, treatments to reduce pain may be helpful but will not help to eliminate the virus. Antibiotics do not improve throat pain caused by a virus and are not recommended. A child with a viral infection is usually allowed to return to school when there has been no fever for 24 hours and the child feels well enough to pay attention. Pain medications - Throat pain can be treated with a mild pain reliever such as acetaminophen (Tylenol ) or a non-steroidal anti-inflammatory agent such as ibuprofen (Motrin ). These medications should be dosed according to weight, not age. Aspirin is not recommended for children <18 years due to the risk of a potentially serious condition known as Guero syndrome. Monitor for dehydration - Some children with a sore throat are reluctant to drink or eat due to pain. Drinking less fluid can lead to dehydration. To reduce the risk of dehydration, parents can offer warm or cold liquids. (See 'Other interventions' below.) Signs and symptoms of mild dehydration include a slightly dry mouth, increased thirst, and decreased urine output (one wet diaper or void in six hours). Signs of moderate or severe dehydration include decreased urine output (less than one wet diaper or void in six hours), lack of tears when crying, dry mouth, and sunken eyes. A child who is moderately or severely dehydrated should be evaluated by a healthcare provider as soon as possible to determine if treatment is needed. Oral rinses- Salt-water gargles are an old stand-by for relief of throat pain. It is not clear if this treatment is effective, but it is unlikely to be harmful. Most recipes suggest 1/4 to 1/2 teaspoon of salt per cup (8 ounces) of warm water. The water should be gargled and then spit out (not swallowed). Children younger than six to eight years are not able to gargle properly. An oral rinse composed of equal parts of diphenhydramine (Benadryl liquid) and Maalox (magnesium hydroxide, aluminum hydroxide, and simethicone) may be helpful for pain caused by a sore mouth or ulcers in the mouth. Children older than six to eight years may swish and spit (not swallow) the mixture. Sprays - Sprays containing topical anesthetics are available to treat sore throat. However, such sprays are no more effective than sucking on hard candy. In addition, a common anesthetic ingredient, benzocaine, can cause allergic reactions. We do not recommend throat sprays for children. Lozenges - A variety of medicated throat lozenges are available to relieve dryness or pain. However, it is not clear that lozenges work any better than hard candy. We do not recommend throat lozenges for children, especially children younger than 3 to 4 years, who can choke. Sucking on hard candy may provide some relief for children older than 3 to 4 years, who are not at risk for choking. Other interventions - Other interventions include sipping warm beverages (eg, honey or lemon tea, chicken soup), cold beverages, or eating cold or frozen desserts (eg, ice cream, popsicles). These treatments are safe for children. Honey should not be given to children younger than 12 months due to the potential risk of botulism poisoning. Alternative therapies - frooly food stores, vitamin outlets, and Internet Web sites offer alternative treatments for relief of sore throat pain. We do not recommend these treatments due to the risks of contamination with pesticides/herbicides, inaccurate labeling and dosing information, and a lack of studies showing that these treatments are safe and effective. SORE THROAT PREVENTION - Hand washing is an essential and highly effective way to prevent the spread of infection. Hands should be wet with water and plain soap, and rubbed together for 15 to 30 seconds. Special attention should be paid to the fingernails, between the fingers, and the wrists. Hands should be rinsed thoroughly, and dried with a single use towel. Alcohol-based hand rubs are a good alternative for disinfecting hands if a sink is not available. Hand rubs should be spread over the entire surface of hands, fingers, and wrists until dry, and may be used several times. These rubs can be used repeatedly without skin irritation or loss of effectiveness. Hand rubs are available as a liquid or wipe in small, portable sizes that are easy to carry in a pocket or handbag. When a sink is available, visibly soiled hands should be washed with soap and water. Hands should be washed after coughing, blowing the nose or sneezing. While it is not always possible to limit contact with a person who is sick, avoiding touching the eyes, nose, or mouth after direct contact can help to prevent the spread of infection. In addition, tissues should be used to cover the mouth when sneezing or coughing. These used tissues should be disposed of promptly. Sneezing/coughing into the sleeve of one's clothing (at the inner elbow) is another means of containing sprays of saliva and secretions and has the advantage of not contaminating the hands. WHEN TO SEEK HELP - Parents of a child with throat pain and one or more of the following should contact their healthcare provider immediately: Difficulty swallowing or breathing Excessive drooling in an or young child Temperature ?101 F or 38.3 C Swelling of the neck Child is unable or unwilling to drink or eat Voice sounds muffled Child has a stiff neck or difficulty opening the mouth WHERE TO GET MORE INFORMATION - Your child's healthcare provider is the best source of information for questions and concerns related to your child's medical problem. This article will be updated as needed every four months on our web site ([email or web address]). Information below was obtained from "Up to date" Last literature review version 19.2: September 2010 This topic last updated: January 05, 2010 documented in this encounter [facility] 03-12-2023 History of Present illness Narrative Debra March is a 37 year old female who presents Patient presents with: Sore Throat: Pt c/o sore throat and cough x 1 day. HPI: Pt presents with sore throat since last pm. Rates 07/28. Two daughters both tested positive for strep last week. Had URI approximately 2 weeks ago, does have a slight lingering cough but otherwise felt back to baseline until last evening. Not taking any medications. Denies fever, chills, headache, body ache, rashes, GI symptoms, congestion. REVIEW OF SYSTEMS: CONSTITUTIONAL: No fevers, chills, nightsweats, unintended weight loss HEENT: +sore throat; Denies ear pain, sinus pressure, mouth lesions, difficulty talking CARDIOVASCULAR: Denies chest pain, dyspnea, palpitations, PULM: +cough; Denies dyspnea, wheeze GI: Denies abdominal pain, constipation, diarrhea, vomiting. NEURO: Denies new balance problems, severe headaches, syncope, weakness, paresthesias MUSC-SKEL: Denies joint swelling, pain, or erythema. INTEGUMENTARY: Denies rashes, lesions, wounds Current Outpatient Medications Medication Sig Dispense Refill PNV Combo No.47-Iron-FA #1-DHA (PNV-DHA) 27 mg iron-1 mg -300 mg Take 1 capsule by mouth once daily. ubrogepant (UBRELVY) 100 mg tablet Take 1 tab as needed at onset of migraine. May repeat dose at 2 hours if needed. Max 200 mg per 24 hours. 10 tablet 5 cephALEXin (KEFLEX) 500 mg capsule Take 1 capsule by mouth two times a day for 10 days. 20 capsule 0 naproxen (NAPROSYN) 500 mg tablet Take 1 tablet two times per day (with meals) for 5-7 days for menstrual migraine. (Patient not taking: Reported on 03/12/2023) 20 tablet 5 No current facility-administered medications for this visit. ALLERGIES Allergen Reactions Amoxicillin Rash Ceftin [Cefuroxime * GI Upset Vomiting and diarrhea Ilosone Rash Naldecon Other: See Comments Penicillin Rash Phenylephrine Other: See Comments hallucinations Hebxplcrhto-Qb-[id number]* Other: See Comments hallucinations Pseudoephedrine Other: See Comments hallucinations Red Dye Other: See Comments hallucinations BP 111/77 (BP Site: Left Arm, BP Position: Sitting, BP Cuff Size: Regular Adult) Pulse 82 Temp 36.7 C (98 F) (Temporal) LMP 02/18/2023 (Exact Date) SpO2 99% Physical Exam General: Awake, alert and active. No acute distress. Well developed, hydrated and nourished. Appears stated age. Skin: Skin in warm, dry and intact without rashes or lesions. Appropriate color for ethnicity. Head: The head is normocephalic and atraumatic Eyes: Conjunctivae are clear without exudates or hemorrhage. Eyelids are normal in appearance without swelling or lesions. Ears: The external ear and ear canal are non-tender and without swelling. The canal is clear without discharge. The tympanic membrane is normal in appearance with normal landmarks and cone of light. No Mastoid tenderness bilaterally. Nose: Nares are patent bilaterally. Throat: Oral mucosa is pink and moist with good dentition. No buccal nodules or lesions are noted. The pharynx is normal in appearance without tonsillar swelling or exudates. No drooling, trismus. Uvula is midline. Phonates without difficulty, no muffling noted. Neck: The neck is supple without adenopathy. Trachea is midline. Cardiac: Heart rate and rhythm are normal. Respiratory: Chest wall is non-tender. No signs of respiratory distress. Lung sounds are clear in all lobes bilaterally without rales, ronchi, or wheezes. Extremities: Steady gait noted. Neurological: The patient is awake, alert and age appropriate. Psychiatric: Appropriate mood and affect. Diagnosis ASSESSMENT/PLAN: 1. Sore throat - ICD9: 462, ICD10: J02.9 (primary diagnosis) - Group A strep molecular testing negative - STREP A MOLECULAR (POC) - CEPHALEXIN 500 MG CAPSULE 2. Exposure to strep throat - ICD9: V01.89, ICD10: Z20.818 -Will treat with cephalexin as 2 daughters did test positive last week for strep. Patient's sore throat has only been present for 12 hours. Per patient, would not have sought treatment if there was not strep in her house as it is so mild. Discussed most likely rationale is a false negative as she is too early in the disease process for the PCR test to be positive. - CEPHALEXIN 500 MG CAPSULE Pt is well appearing, non toxic, not hypoxic and appropriate for outpatient treatment and management at the time of evaluation. Pt's VSS, medication list, allergies, past medical history, and pertinent surgical and family history have been reviewed. -Patient education provided today. -Follow up with your PCP/Specialist if you fail to improve in 5-7 days - Report to ED with any new or worsening symptoms or life-threatening concerns - Warning signs of worsening condition explained to patient - Patient left in stable condition after questions answered and patient verbalizes understanding Perla Davis PA-C documented in this encounter [facility] 03-09-2023 Consult note Formatting of th is note is different from the original. [facility] I have communicated my name and active licensure. The patient's identity and physical location were verified at the time of this visit. Either the patient or their legal business development representative has been informed of the risks and benefits of -- and alternatives to -- treatment through a remote evaluation and consents to proceed with the evaluation remotely. Date: 03/09/2023 Consultation Requested By: self Debra March is a 37 year old female presenting with the following history: HISTORY OF PRESENT ILLNESS: Debra March is a 37 year old female with Refer here by her PCP. Have 3 children. Having been TTC since 06/2022. 7, 4 and 2 years old. Had miscarriage in November 2022 and was told that she was around 4-5 weeks . 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 Periods used to be q 28-30 days. Now, period q 25-26 days. Obstetric History T3 L3 SAB1 IAB0 Ectopic0 Multiple0 Live Births3 Fertility Evaluations and Treatments: Eval Checklist Results Date Comments HSG Hysteroscopy Laparoscopy OPK (Ovulation Predictor Kit) Ovarian [place] Saline Ultrasound Semen Analysis Ultrasound Other (See comments) MENSTRUAL HISTORY: Menarche Age: Length of Cycle: 25-26 days Regular Days: Menstrual Flow: Menstrual Symptoms: Patient's last menstrual period was 02/18/2023 (exact date). PAST MEDICAL HISTORY Diagnosis Date Factor 5 Leiden mutation, heterozygous (HCC) Migraine headache Mixed hypercholesterolemia and hypertriglyceridemia 2015 PAST SURGICAL HISTORY Procedure Laterality Date DELIVERY ONLY 11/02/15,01/09/19 , low transverse x 3 TONSILLECTOMY PRIMARY/SECONDARY <AGE 12 Tonsillectomy FAMILY HISTORY Problem Relation Age of Onset Cancer Mother 55 multiple myeloma Hyperlipidemia Father Diabetes Father borderline Hyperlipidemia Brother Breast Cancer Maternal Grandmother Diabetes Maternal Grandmother Heart Maternal Grandmother Heart Maternal Grandfather Cancer Paternal Grandmother Brain Heart Paternal Grandfather Heart Attack Paternal Grandfather GENETIC HISTORY: no OCCUPATION/EXERCISE: Occupation: Exercise: Partner Information Partner's Name: Tara Partner's : Partner's MRN: Partner's Ethnicity: Partner's Race: Medications: pantropazole. Additional Partner Assessment Findings: He has Hodgkin lymphoma 2 years ago s/p chemotherapy and immunotherapy. Last treatment was 07/12. Currently on remission. SA was done a few months ago. MEDICATIONS: Current Outpatient Medications on File Prior to Visit Medication Sig naproxen (NAPROSYN) 500 mg tablet Take 1 tablet two times per day (with meals) for 5-7 days for menstrual migraine. ubrogepant (UBRELVY) 100 mg tablet Take 1 tab as needed at onset of migraine. May repeat dose at 2 hours if needed. Max 200 mg per 24 hours. No current facility-administered medications on file prior to visit. ALLERGIES: Amoxicillin, Ceftin [Cefuroxime Axetil], Ilosone, Naldecon, Penicillin, Phenylephrine, Ypgbgifwwez-Rh-Nrtjpdvefuhac, Pseudoephedrine, and Red Dye Blood Type: No results found for this basename: aborhd No results found for this basename: rubqnt,vzvg Assessment and Plan Debra March is a 37 year old female with age-related declines in fertility and recent miscarriage. We discuss the lower chance of /risk of miscarriage and defects associated with her age today. has normal SA but low volume. Discuss with them that since they recently had a miscarriage, we can hold off on repeat SA or doing IUI for a few months. Will order some test now. If all normal, recommend they TTC until May and then meet with me. All questions are answered. Farideh Perez MD I spent a total of 45 minutes on the date of the service which included preparing to see the patient, omwc-tn-ecat patient care, completing clinical documentation, counseling and educating the patient/family/caregiver, ordering medications, tests, or procedures, and care coordination (not separately reported). Farideh Perez MD documented in this encounter [facility] 03-09-2023 Miscellaneous Notes Debra March is a 37 year old female with age-related declines in fertility and recent miscarriage. We discuss the lower chance of /risk of miscarriage and defects associated with her age today. has normal SA but low volume. Discuss with them that since they recently had a miscarriage, we can hold off on repeat SA or doing IUI for a few months. Will order some test now. If all normal, recommend they TTC until May and then meet with me. All questions are answered. Farideh Perez MD documented in this encounter [facility] 03-05-2023 Miscellaneous Notes Consult to PT ordered-patient notified via my chart. Mary Hamilton PA-C Pt informed, verbalized understanding. Asking for referral to PT for her back. Reports possible injury while cleaning out garage. She has seen PT in the past. Amanda Chaudhary Please inform patient that overall her labs are stable. Her cholesterol is high but improving. keep up the low fat/low animal cholesterol diet and regular exercise Frantz Benson DO documented in this encounter [facility] 02-21-2023 Miscellaneous Notes Physician: Arlet Call from patient requesting refill. Please E-Scribe Last office visit 02/13/22 with Arlet virtual Next office visit Not scheduled. Requested Prescriptions Pending Prescriptions Disp Refills naproxen (NAPROSYN) 500 mg tablet 20 tablet 5 Sig: Take 1 tablet two times per day (with meals) for 5-7 days for menstrual migraine. ubrogepant (UBRELVY) 100 mg tablet 10 tablet 5 Sig: Take 1 tab as needed at onset of migraine. May repeat dose at 2 hours if needed. Max 200 mg per 24 hours. [facility]: [facility] documented in this encounter [facility] 02-05-2023 History of Present illness Narrative CC: Debra March is a 37 year old female who presents to the office for physical HPI: Overall she is doing well She recently had a miscarriage in 1st trimester. Has seen her [facility] after this miscarriage HPL, hx of, willing to have fasting labs Migraine headaches, stable, use of Ubrelvy with benefit. PAST MEDICAL HISTORY Diagnosis Date Factor 5 Leiden mutation, heterozygous (HCC) Migraine headache Mixed hypercholesterolemia and hypertriglyceridemia 2015 PAST SURGICAL HISTORY Procedure Laterality Date DELIVERY ONLY 11/02/15,01/09/19 , low transverse x 3 TONSILLECTOMY PRIMARY/SECONDARY <AGE 12 Tonsillectomy Social History: Social History Tobacco Use Smoking status: Never Smokeless tobacco: Never Vaping Use Vaping Use: Never used Substance Use Topics Alcohol use: Not Currently Comment: Occasionally Drug use: No FAMILY HISTORY Problem Relation Age of Onset Cancer Mother 55 multiple myeloma Hyperlipidemia Father Diabetes Father borderline Hyperlipidemia Brother Breast Cancer Maternal Grandmother Diabetes Maternal Grandmother Heart Maternal Grandmother Heart Maternal Grandfather Cancer Paternal Grandmother Brain Heart Paternal Grandfather Heart Attack Paternal Grandfather Current Outpatient prescriptions: ubrogepant (UBRELVY) 100 mg tablet Take 1 tab as needed at onset of migraine. May repeat dose at 2 hours if needed. Max 200 mg per 24 hours. naproxen (NAPROSYN) 500 mg tablet Take 1 tablet two times per day (with meals) for 5-7 days for menstrual migraine. Allergies: ALLERGIES Allergen Reactions Amoxicillin Rash Ceftin [Cefuroxime * GI Upset Vomiting and diarrhea Ilosone Rash Naldecon Other: See Comments Penicillin Rash Phenylephrine Other: See Comments hallucinations Zrbzcdyhbah-Ob-Ctjd* Other: See Comments hallucinations Pseudoephedrine Other: See Comments hallucinations Red Dye Other: See Comments hallucinations ROS: See HPI PE: 02/05/23 1210 BP: 96/60 Pulse: 80 Resp: 12 Temp: 36.2 C (97.1 F) TempSrc: Left Tympanic Weight: 78.9 kg (174 lb) Height: 158 cm (5' 2.21") Gen: A&O, NAD, non-toxic appearing, Pleasant, cooperative HEENT: NT/AC, PERRLA, EOMs intact b/l, nares clear and patent b/l, pharynx without erythema, exudate or lesions. Uvula midline. MMM, EACs without erythema or debris. TMs pearly cardenas with intact landmarks b/l. Neck: supple, No cervical LAD, no thyromegaly, no carotid bruits CV: RRR, normal S1 and S2, no murmurs, no gallops, no rubs, Pulses 2+ and symmetric in UE and LE b/l Lungs: normal respiratory effort, CTA b/l, no wheezing or rhonchi or rales Abd: soft, overweight, NT, ND, +BS, no hepatosplenomegaly MS: FROM all 4 extremities Neuro: CN II-XII intact b/l, strength 5/5 b/l UE and LE, DTRs 2/4 UE and LE, sensation intact. Skin: warm, dry, intact, No rashes or lesions on exposed skin. No edema, normal pulses ASSESSMENT/PLAN: 1. Well adult exam - ICD9: V70.0, ICD10: Z00.00 (primary diagnosis) - Counseled on healthy diet and regular exercise - Calcium intake with supplements or by diet of 1000 mg/day for under 50, 1784-4996 mg/day for 50+ - Discussed need and benefit for weight loss. BMI 31.62 kg/(m^2) - LIPID PANEL BASIC - HGB A1C - TSH BLD - T4 FREE/FREE THYROX - T3 FREE BLD 2. Miscarriage - ICD9: 634.90, ICD10: O03.9 Hx of, has seen [facility], recheck labs as ordered above 3. Other migraine without status migrainosus, not intractable - ICD9: 346.80, ICD10: G43.809 - stable, continue Ubrelvy Frantz Benson DO To ER if develops chest pain, shortness of breath, or severe worsening of symptoms. Discussed risks, benefits, alternatives, and potential side effects of medications. Patient expressed understanding and agreed with the plan. Frantz Benson DO [address] [place] [address] documented in this encounter [facility] 01-15-2023 Miscellaneous Notes Reason: UTI symptoms Outcome: 24 hour recommendation. Care advice given. Patient conferenced to the appointment center for scheduling. Reason for Disposition All other patients with painful urination (Exception: [1] EITHER frequency or urgency AND [2] has on-call doctor) Answer Assessment - Initial Assessment Questions 1. SEVERITY: "How bad is the pain?" (e.g., Scale 1-10; mild, moderate, or severe) - MILD (1-3): complains slightly about urination hurting 2. FREQUENCY: positive for frequency. 4. ONSET: "10 days ago 5. FEVER: denies fever. 6. PAST UTI: 2 years ago. 7. CAUSE: " UTI 8. OTHER SYMPTOMS: denies 9. : Patient states recent miscarriage 3 weeks ago. Protocols used: Urination Pain - Llvkge-SOVPL-TY documented in this encounter [facility] 12-26-2022 Miscellaneous Notes Pt called and is notified of providers results and instructions. Pt voices understanding. Meseret Corbin RN Please inform patient that her hcg levels are down to 5.0. would recommend recheck on Sunday of hcg as ordered Frantz Benson DO documented in this encounter [facility] 12-25-2022 Miscellaneous Notes Pt notified that lab order is in. She will probably have drawn at [facility]. States she does have a follow up scheduled with an LOGISTICS OPERATIONS MANAGER for the end of next week. Please inform patient that I have ordered an hcg level as below to have checked. Can consider seeing Dr Ricarda Moreno in the [place] area or other OBGYN providers Frantz Benson DO Patient calls and states that she was unable to get OB-[facility] appointment till next week. Patient asking if provider can put in order to get HCG test done? Please review and advise, Zakiya Jeffrey RN Pt was seen in the ER at [facility] in [place] on Saturday 12/23. Pt was told to call and ask her provider to order another HCG level to make sure it is going down and not increasing. States still having some bleeding but is like a normal period. Changing her pad 4-5 times per day. Denies any pain or cramping. Pt does have Factor 5 Leiden. States she is O+ blood type. Pt states she currently does not have an LOGISTICS OPERATIONS MANAGER physician. She had made an appt with a different LOGISTICS OPERATIONS MANAGER office but she is unsure if they will see her now since she had the miscarriage. Last child was 2 years ago and has not seen anyone since. She does not want to go back to her previous LOGISTICS OPERATIONS MANAGER. Per ER note, pt was to follow up with Dr. Sher LOGISTICS OPERATIONS MANAGER in 2 days. Pt states that is her old LOGISTICS OPERATIONS MANAGER and she really prefers not to follow up with her. Pt instructed to call the new LOGISTICS OPERATIONS MANAGER office that she had an appt with, let them know about the miscarriage and see if they will follow up with her. Offered to contact our LOGISTICS OPERATIONS MANAGER dept here in [place]. Pt states we are too far away. She will call the new LOGISTICS OPERATIONS MANAGER office where she had the appt and will call us only if problem. documented in this encounter [facility] 10-04-2022 Instructions Zakiya Dailey APRN.UTILITY WORKER FILM PROCESSING - 10/04/2022 11:55 AM EDT -Rest, Drink plenty of fluids. -Tylenol or motrin as needed. -OTC Mucinex and Sudafed as directed by packaging. -OTC Flonase 2 sprays each nostril daily. -Warm liquids, salt water gargles, throat lozenges and sprays. -Follow up with PCP in 5-7 days for ongoing concerns or if symptoms do not improve. -ER for High fever that does not come down with tylenol or motrin, difficulty breathing or swallowing, increased work of breathing, decreased level of consciousness, chest pain or any other concerning symptoms. UPPER RESPIRATORY INFECTIONS Most cases are caused by viruses and most cases are mild, temporary, and harmless. Symptoms can last 2 to 3 weeks and can include: nasal congestion, sore throat, coughing, muscles aches, headaches, nausea, diarrhea, fatigue and fever. Now that you have been examined, if you are not feeling better within 2-3 weeks, please call back. In the meantime, please: 1. Drink plenty of fluids. 2. Get lots of rest. 3. Avoid dehydrants such as caffeine and alcohol. 4. Nasal saline is an effective decongestant and be used frequently throughout the day. 5. To loosen phlegm and help coughing, drink plenty of fluids and using a humidifier. 6. For sore throats, it is ok to use cough drops, throat sprays, or gargling warm salt water. 7. Always cover your mouth when you cough or sneeze, and wash your hands frequently. Avoid crowded areas like shopping centers, movies while you are sick so you don't pick up attendant a different virus, or infect others. 8. Avoid exposure to cigarettes or fumes. 9. Avoid irritants such as potpourri, dust, perfumes, scented candles and scented sprays 10. Air conditioning is an effective allergen and irritant avoidance strategy in the spring, summer and fall. 11. Honey is an effective cough suppressant. Try one tsp two to three times per day. The below information is from prescribersletter.IntoOutdoors: Antibiotics Will rarely help an upper respiratory infections. Antibiotics lead to more resistant infections that are harder to treat. There is little to no benefit to taking antibiotics for most acute upper respiratory tract infections. documented in this encounter [facility] 10-04-2022 History of Present illness Narrative Chief Complaint Patient presents with: Sore Throat: Started last night. Also states that she is tired. Exposed to strep. HPI Patient presents today for concerns for sore throat that started last night. She also has sinus congestion and drainage. She has fatigue. She denies fever, chills, shortness of breath and chest pain denies GI symptoms. She has not taken anything for her symptoms. She reports that she seems to be getting atcq-vy-vtcu illnesses. She reports approximately a week and a half ago she was having cough and congestion but that had been resolved for at least a week. Reports has been sick. A few weeks ago kids had strep. PAST MEDICAL HISTORY Diagnosis Date Factor 5 Leiden mutation, heterozygous (HCC) Migraine headache Mixed hypercholesterolemia and hypertriglyceridemia 2015 ALLERGIES Allergen Reactions Amoxicillin Rash Ceftin [Cefuroxime * GI Upset Vomiting and diarrhea Ilosone Rash Naldecon Other: See Comments Penicillin Rash Phenylephrine Other: See Comments hallucinations Nfxfzmjdvwj-Pi-Wmix* Other: See Comments hallucinations Pseudoephedrine Other: See Comments hallucinations Red Dye Other: See Comments hallucinations Review of Systems Review of Systems Constitutional: Positive for fatigue. Negative for chills, diaphoresis and fever. HENT: Positive for postnasal drip, rhinorrhea and sore throat. Negative for congestion, dental problem, ear pain, sinus pressure, trouble swallowing and voice change. Respiratory: Negative for cough, chest tightness and shortness of breath. Cardiovascular: Negative for chest pain. Gastrointestinal: Negative for diarrhea, nausea and vomiting. BP 116/78 (BP Site: Right Arm, BP Position: Sitting) Pulse 82 Temp 36.3 C (97.3 F) (Temporal) LMP 09/12/2022 (Approximate) SpO2 100% Physical Exam Vitals and nursing note reviewed. Constitutional: General: She is awake. She is not in acute distress. Appearance: Normal appearance. She is not ill-appearing or toxic-appearing. HENT: Head: Normocephalic and atraumatic. Right Ear: Tympanic membrane and ear canal normal. Left Ear: Tympanic membrane and ear canal normal. Nose: No congestion or rhinorrhea. Right Sinus: No maxillary sinus tenderness or frontal sinus tenderness. Left Sinus: No maxillary sinus tenderness or frontal sinus tenderness. Mouth/Throat: Lips: [place]. Mouth: Mucous membranes are moist. Palate: No lesions. Pharynx: Uvula midline. Posterior oropharyngeal erythema present. No pharyngeal swelling, oropharyngeal exudate or uvula swelling. Tonsils: 0 on the right. 1+ on the left. Cardiovascular: Rate and Rhythm: Normal rate and regular rhythm. Heart sounds: Normal heart sounds. Pulmonary: Effort: Pulmonary effort is normal. No respiratory distress. Breath sounds: Normal breath sounds. Lymphadenopathy: Cervical: No cervical adenopathy. Skin: General: Skin is warm and dry. Neurological: Mental Status: She is alert. Psychiatric: Mood and Affect: Mood normal. Behavior: Behavior is cooperative. Diagnostics reviewed Office Visit on 10/04/2022 Component Date Value Ref Range Status Strep A (POCT) 10/04/2022 Negative Negative Final Procedural Control 10/04/2022 Valid Final Assessment and Plan 1. Viral URI - ICD9: 465.9, ICD10: J06.9 Patient is well-appearing, nontoxic appearing. Her vital signs are clinically stable and she is afebrile. Lung sounds are clear to auscultation bilaterally. Tonsils are surgically absent. There is mild posterior pharyngeal erythema. Uvula is midline. - Discussed viral etiology and rationale for treatment. - Alere Strep Test negative, no culture pending - Symptomatic treatment with prn analgesia - Supportive care with fluids and rest - The patient may also use warm salt water gargles, throat lozenges and/or OTC throat spray as needed and DC Flonase antihistamine.. - Follow up in 5-7 days if symptoms persist or sooner if worsening of symptoms -ER for High fever that does not come down with tylenol or motrin, difficulty breathing or swallowing, increased work of breathing, decreased level of consciousness, chest pain or any other concerning symptoms. Zakiya Dailey APRN.CRISTINA documented in this encounter [facility] 09-22-2022 Miscellaneous Notes DEBRA MARCH (Jarquin: [id number]) Ubrelvy This request has received an approval. View the bottom of the request for an electronic copy of the approval letter. this request is approved from 09/22/2022 to 09/22/2023 Sincere Boston RN September 22, 2022 12:41 PM Prior auth completed via [facility] for Ubrelvy 100mg Drug Ubrelvy 100MG tablets Form [employer] Electronic PA Form ([facility]) DEBRA MARCH Jarquin: [id number] - PA Norma Guo LPN September 22, 2022 11:25 AM Prior Authorization for Medications Requested by (MyChart, Pharmacy, Patient Call, Fax) : Patient call [facility] Phone # : [phone] Name of Medication : Ubrelvy Dose : 100mg If renewal, auth date expiration: NA Prescribing Provider: Arlet Last OV: 02/13/22 with Arlet Insurance Provider : M[employer]/ [facility] [employer] Is insurance card scanned in, including Rx info? Yes Rx ID number: [id number] Rx BIN: [id number] Rx PCN: [id number] Rx Grp: [id number] Insurance CoverMyMeds Jarquin: NA E-PA? Yes Patient scheduled today 09/22/22 at 1:30p for an appointment. Please process once appointment is completed. documented in this encounter [facility] 07-26-2022 Miscellaneous Notes Physician: Arlet Call from patient requesting refill. Please E-Scribe Last OV: 02/13/2022 with Arlet Future OV: Not Scheduled. Requested Prescriptions Pending Prescriptions Disp Refills ubrogepant (UBRELVY) 100 mg tablet 10 tablet 5 Sig: Take 1 tab as needed at onset of migraine. May repeat dose at 2 hours if needed. Max 200 mg per 24 hours. Pharmacy Name: [facility] documented in this encounter [facility] 07-19-2022 History of Present illness Narrative VIRTUAL VISIT PROGRESS NOTE This is a virtual visit using MedTel24 video visit. It required patient-provider interaction for the medical decision making as documented below. Debra March is a 37 year old female seen for sinus infection. Today: Has had a sinus headache for the past 5 days. Is over the bridge of her nose and upper cheeks. No other sx. Since her daughter started kindergarten in December, seems to constantly be getting sick. Was previously on Bactrim a couple months ago that seemed to help, then recent strep throat and was on a Zpack. Recently returned from [facility] to [place] and now having this sinus pain since. No other associated sx. HISTORY REVIEWED (electronic chart updated): PAST MEDICAL HISTORY Diagnosis Date Factor 5 Leiden mutation, heterozygous (HCC) Migraine headache Mixed hypercholesterolemia and hypertriglyceridemia 2015 PAST SURGICAL HISTORY Procedure Laterality Date DELIVERY ONLY 11/02/15,01/09/19 , low transverse x 3 TONSILLECTOMY PRIMARY/SECONDARY <AGE 12 Tonsillectomy FAMILY HISTORY Problem Relation Age of Onset Cancer Mother 55 multiple myeloma Hyperlipidemia Father Diabetes Father borderline Hyperlipidemia Brother Breast Cancer Maternal Grandmother Diabetes Maternal Grandmother Heart Maternal Grandmother Heart Maternal Grandfather Cancer Paternal Grandmother Brain Heart Paternal Grandfather Heart Attack Paternal Grandfather Social History Tobacco Use Smoking status: Never Smokeless tobacco: Never Vaping Use Vaping Use: Never used Substance Use Topics Alcohol use: Yes Comment: Occasionally Drug use: No Current Outpatient Medications Medication Sig ubrogepant (UBRELVY) 100 mg tablet Take 1 tab as needed at onset of migraine. May repeat dose at 2 hours if needed. Max 200 mg per 24 hours. naproxen (NAPROSYN) 500 mg tablet Take 1 tablet two times per day (with meals) for 5-7 days for menstrual migraine. No current facility-administered medications for this visit. ALLERGIES Allergen Reactions Amoxicillin Rash Ceftin [Cefuroxime * GI Upset Vomiting and diarrhea Ilosone Rash Naldecon Other: See Comments Penicillin Rash Phenylephrine Other: See Comments hallucinations Hffbuyhcndg-Hj-Cmng* Other: See Comments hallucinations Pseudoephedrine Other: See Comments hallucinations Red Dye Other: See Comments hallucinations REVIEW OF SYSTEMS: All other ROS: negative As noted in HPI PHYSICAL EXAMINATION: VIDEO EXAM: (if completed, performed via video enabled technology) No exam performed ASSESSMENT: (R51.9) Headache, unspecified headache type (primary encounter diagnosis) (H93.8X3) Congestion of both ears (J32.9) Recurrent sinusitis PLAN: Bactrim, supportive tx. Consult placed to ENT per patient request. Anastasiya Erwin APRN.CNP documented in this encounter [facility] 06-30-2022 History of Present illness Narrative Chief Complaint Patient presents with: Throat Culture: Started sat , cough, congestion sore throat. Son tested positive for strep HPI Debra March is a 37 year old female who presents here today for Above Complaints.. Debra is an established patient of Dr. Benson, DO and myself. Concerns today... Son tested positive for strep throat a few days ago. Pt and her started with similar symptoms as son on Sunday. They have upcoming family vacation and want to make sure they don't have strep as well. Or at least treat prior if so. Pt reports symptoms of cough, body aches, and sore throat. No fever/chills. No interest in COVID/flu testing. Past medical history, appointments, medications, allergies reviewed. Previous Medical History PAST MEDICAL HISTORY Diagnosis Date Factor 5 Leiden mutation, heterozygous (HCC) Migraine headache Mixed hypercholesterolemia and hypertriglyceridemia 2015 Previous Surgical History PAST SURGICAL HISTORY Procedure Laterality Date DELIVERY ONLY 11/02/15,01/09/19 , low transverse x 3 TONSILLECTOMY PRIMARY/SECONDARY <AGE 12 Tonsillectomy Family History FAMILY HISTORY Problem Relation Age of Onset Cancer Mother 55 multiple myeloma Hyperlipidemia Father Diabetes Father borderline Hyperlipidemia Brother Breast Cancer Maternal Grandmother Diabetes Maternal Grandmother Heart Maternal Grandmother Heart Maternal Grandfather Cancer Paternal Grandmother Brain Heart Paternal Grandfather Heart Attack Paternal Grandfather Patient Allergies ALLERGIES Allergen Reactions Amoxicillin Rash Ceftin [Cefuroxime * GI Upset Vomiting and diarrhea Ilosone Rash Naldecon Other: See Comments Penicillin Rash Phenylephrine Other: See Comments hallucinations Hutoilhwpco-Qy-Uhmo* Other: See Comments hallucinations Pseudoephedrine Other: See Comments hallucinations Red Dye Other: See Comments hallucinations Current Medications Current Outpatient Medications on File Prior to Visit Medication Sig ubrogepant (UBRELVY) 100 mg tablet Take 1 tab as needed at onset of migraine. May repeat dose at 2 hours if needed. Max 200 mg per 24 hours. naproxen (NAPROSYN) 500 mg tablet Take 1 tablet two times per day (with meals) for 5-7 days for menstrual migraine. No current facility-administered medications on file prior to visit. Social History Social History Tobacco Use Smoking status: Never Smokeless tobacco: Never Vaping Use Vaping Use: Never used Substance Use Topics Alcohol use: Yes Comment: Occasionally Drug use: No REVIEW OF SYSTEMS: as above Reviewed relevant PMHx, PSHx, Social Hx, current medications and allergies. Review of Symptoms REVIEW OF SYSTEMS See HPI. EXAM: BP 128/64 (BP Site: Left Arm, BP Position: Sitting, BP Cuff Size: Regular Adult) Pulse 78 Temp 37.2 C (99 F) Resp 16 Wt 79.3 kg (174 lb 12.8 oz) LMP 02/04/2022 (Approximate) SpO2 100% BMI 32.79 kg/m General Appearance: Well appearing, alert, in no acute distress, well-hydrated, well nourished.. Skin: Skin color, texture, turgor normal, no suspicious rashes or lesions. Head: Normocephalic, no masses, lesions, tenderness or abnormalities. Eyes: Anicteric sclera. Pupils are equally round and reactive to light. Extraocular movements are intact. . Ears: External ears normal, canals clear. Nose/Sinuses: Nares normal, septum midline, mucosa normal, no drainage or sinus tenderness. Oropharynx: Lips, mucosa, and tongue normal, teeth and gums normal, oropharynx normal. Neck: Supple, no adenopathy; thyroid symmetric, normal size, no bruits. Back:no pain to palpation of vertebrae, good flexion and extension, good range of motion, no muscle tenderness, reflexes are 2+ and symmetric, motor and sensory appear to be normal, negative SLR test, no evidence of scoliosis Lungs: Lungs clear to auscultation. No wheezing, rhonchi, rales.. Heart: RRR without murmur, gallop, or rubs. No ectopy. Health Maintenance List HEPATITIS B(1 of 3 - 3-dose series) Never done HEPATITIS C SCREENING Never done HIV SCREENING Never done INFLUENZA(1) due on 11/17/2022 DTAP,TDAP,TD(1 - Tdap) due on 05/03/2023 COVID-19 VACCINE(1) due on 05/03/2023 PAP TESTING due on 03/04/2023 HPV TESTING due on 03/04/2023 ASSESSMENT/PLAN: 1. Sore throat - ICD9: 462, ICD10: J02.9 - suspect strep - Rapid Strep negative in the office today - antibiotic as written -- start antibiotic (zpak) if symptoms do not improve with 3-5 days. Due to upcoming vacation, antibiotic rx given now. Pt declined COVID or flu testing. - Discussed supportive care treatment with fluids, rest and analgesia. - The patient may also use OTC decongestants prn, OTC cough and cold meds as needed, warm salt water gargles, throat lozenges and/or OTC throat spray as needed, and nasal saline gtts and suction prn. - The patient should follow up in 3-5 days if symptoms persist or worsen - Call back if drooling, increased temperature, symptoms of dehydration and/or still sick in one week - AZITHROMYCIN 250 MG TABLET - STREP A MOLECULAR (POC) RTO as needed. Prescription instructions reviewed with patient as applicable. Potential red flag symptoms discussed with the patient. Reviewed appropriate action plan to take if red flag symptoms occur. Patient agreeable to treatment plan. Fariba Gould APRN.UTILITY WORKER FILM PROCESSING [address] [place] [address] documented in this encounter [facility] 05-24-2022 Miscellaneous Notes Called and spoke with Rae at [facility] pharmacy. Rae will give [facility] a call and get medication transferred to them. Zakiya Jeffrey RN Patient calling since received text from pharmacy. Went over notes below from Dr Benson with understanding. Patient said she no longer is using the [facility] asking to have rx sent to [facility]. Reset rx to file. Please advise Please call patient, okay to try Bactrim rx instead. Make sure she is eating yogurt and taking a probiotic while on antibiotics. Frantz Benson DO Patient calls and states that she was seen in [facility] care on 05/20/2022 for ear infection. Patient was prescribed Azithromycin for this. [facility] care wanted to prescribe a cephalosporin for this but patient declined do to previous issues with medication. Patient calling and states that Azithromycin did not work. Patient asking for something else to be prescribed. Patient still does not want to try cephalosporin or any of its cousins. Please review and advise, Zakiya Jeffrey RN documented in this encounter [facility] 05-20-2022 Instructions Perla Davis PA-C - 05/20/2022 11:[address] Caldwell - insurance sales supervisor Otitis media is an infection of the middle ear. The middle ear sits behind the eardrum. This infection may be caused by a virus or bacteria and often follows a cold. Otitis media is not contagious. INSTRUCTIONS: 1. If an antibiotic has been prescribed,it should be taken exactly as prescribed. Do not stop the medicine even if the symptoms go away. 2. Dumh-rdb-uajvkhm pain medication may be taken or other pain medication as prescribed by the doctor. 3. Nothing should be placed in the ear unless instructed by your doctor. 4. The patient may return to school or work when the temperature is normal (98.6 F or 37 C). 5. The patient should not swim while the ear is infected. CALL YOUR PRIMARY CARE PROVIDERS OFFICE- -If you do not feel better within 48-72 hours. -If you develop a temperature over 102 F (39 C). -If you develop drainage from the affected ear. -If you have any new problem that may be related to the medicine prescribed. CONJUNCTIVITIS ([facility]) BASIC INFORMATION DESCRIPTION: An inflammation of the eyelids' underside and white part of the eye. It is more common in children. FREQUENT SIGNS AND SYMPTOMS: The following symptoms may affect one or both eyes: -Clear, green or yellow discharge from the eye. -After sleeping, crusts on lashes that cause eyelids to stick together. -Eye pain. -Swollen eyelids. -Sensitivity to bright light. -Redness and gritty feeling in the eye. -Intense itching (allergic conjunctivitis only). PREVENTIVE MEASURES: -Wash hands frequently with soap and warm water. -Avoid exposure to eye irritants. Newborns in hospital deliveries are routinely given antibiotic eye drops. -Do not share eyeliners, and discard mascara after 4-6 months. TREATMENT: GENERAL MEASURES: -Treatment of conjunctivitis varies with the cause. -Wash hands often with antiseptic soap, and use paper towels to dry. Don't touch eyes. Gently wipe the discharge from the eye using disposable tissues. -Infections are frequently spread by contaminated fingers, towels, handkerchiefs or wash clothes that have touched the infected eye. -Use warm-water soaks or cold water to reduce discomfort. -Don't use eye makeup. -If the infection does not improve in 2 or 3 days, it may be caused by an insensitive bacteria, virus or allergy. At this point, an cloth grader may need to culture the cause or the conjunctivitis. -Do not wear contact lenses until inflammation is cleared. ACTIVITY: Resume your normal activities as soon as symptoms improve. Contact physician if: -The infection does not improve in 48 hours, despite treatment. -Fever occurs. -Pain increase. -Vision is affected. REPORT: -The infection does not imporve in 48 hours, despite treatment. -Fever occurs -Pain increase -Vision is affected. documented in this encounter [facility] 05-20-2022 History of Present illness Narrative Debra March is a 37 year old female who presents Patient presents with: Ear Pain HPI: Pt presents with left ear pain and left eye redness. 2 days ago, had extreme pressure in the left ear, felt similar to when she had a ruptured eardrum in the past. Denies any drainage or gush of fluid, no blood, symptoms improved after 12 hours but still with mild pressure. Has not been using medication, would like here to be evaluated to rule out perforation. Denies URI symptoms. Also concerned with left eye redness and matting, 2 children diagnosed with pinkeye over a week ago, at that time she had 2 days of discharge and eyelid matting. Resolved without intervention. Last night eye started to become itchy, this morning eyelashes were matted shut, eye is red and irritated. Denies eye pain, trauma or injury, flashes of light, blurry vision, loss of vision, headache, fever, chills, photosensitivity, painful eye movement. Does wear contacts, currently has a contact lens in. REVIEW OF SYSTEMS: CONSTITUTIONAL: No fevers, chills, nightsweats, unintended weight loss HEENT: +ear pain, eye redness, matting; Denies sore throat, sinus pressure, mouth lesions, difficulty talking, eye pain, vision changes PULM: Denies dyspnea, wheeze, cough INTEGUMENTARY: Denies rashes, lesions, wounds Current Outpatient Medications Medication Sig Dispense Refill azithromycin (ZITHROMAX) 250 mg tablet Take 2 tablets by mouth once daily for 1 day, THEN 1 tablet once daily for 4 days. 6 tablet 0 ciprofloxacin HCl (CILOXAN) 0.3 % ophthalmic solution Use 1-2 drops inside left lower eyelid(s) every 2 hours while awake for 2 days, then 1-2 drops every 4 hours for next 5 days. 5 mL 0 ubrogepant (UBRELVY) 100 mg tablet Take 1 tab as needed at onset of migraine. May repeat dose at 2 hours if needed. Max 200 mg per 24 hours. 10 tablet 5 naproxen (NAPROSYN) 500 mg tablet Take 1 tablet two times per day (with meals) for 5-7 days for menstrual migraine. 20 tablet 5 No current facility-administered medications for this visit. ALLERGIES Allergen Reactions Amoxicillin Rash Ceftin [Cefuroxime * GI Upset Vomiting and diarrhea Ilosone Rash Naldecon Other: See Comments Penicillin Rash Phenylephrine Other: See Comments hallucinations Quxwczaawwo-Eg-Pvcl* Other: See Comments hallucinations Pseudoephedrine Other: See Comments hallucinations Red Dye Other: See Comments hallucinations BP 105/71 Pulse 98 Temp 36.9 C (98.5 F) LMP 02/04/2022 (Approximate) SpO2 98% Physical Exam General: Awake, alert and active. No acute distress. Well developed, hydrated and nourished. Appears stated age. Skin: Skin in warm, dry and intact without rashes or lesions. Appropriate color for ethnicity. EYES: Left conjunctival is injected, no exudate noted. Eyelids are without swelling or lesions. Globes are soft. PERRLA. EOMs are intact. Ears: The external ear and ear canal are non-tender and without swelling. The canal is clear without discharge. Left TM is mildly erythematous, right TM is villanueva and intact. No Mastoid tenderness bilaterally. Nose: Nares are patent bilaterally. Throat: Oral mucosa is pink and moist with good dentition. No buccal nodules or lesions are noted. The pharynx is normal in appearance without tonsillar swelling or exudates. No drooling, trismus. Uvula is midline. Phonates without difficulty, no muffling noted. Neck: The neck is supple without adenopathy. Cardiac: Heart rate and rhythm are normal. Respiratory: Chest wall is non-tender. No signs of respiratory distress. Lung sounds are clear in all lobes bilaterally without rales, ronchi, or wheezes. Neurological: The patient is awake, alert and age appropriate. Psychiatric: Appropriate mood and affect. Diagnosis ASSESSMENT/PLAN: 1. Acute otitis media, left - ICD9: 382.9, ICD10: H66.92 (primary diagnosis) -Was just treated with a Z-Bo earlier this month for ear pressure, patient reluctant to try cephalosporins despite Ceftin only causing GI symptoms. Discussed the high likelihood of recurrent failure with a Z-Bo. Recommend allergy testing as patient is highly fearful of trying anything other than the macrolide family. - AZITHROMYCIN 250 MG TABLET - AZITHROMYCIN 250 MG TABLET 2. Acute bacterial conjunctivitis of left eye - ICD9: 372.03, ICD10: H10.32 - see medication orders - course and contagiousness issues discussed, including hand washing. - Instructed to call if high fever, development of periorbital redness or swelling, eye pain, visual changes, concerns or if symptoms persist. -Patient is to take out her contacts, no contact lens wearing until infection has cleared x48 hours. If eye pain develops, light sensitivity, flashes of light, or vision changes, patient will need to be seen immediately through the ED. - CIPROFLOXACIN 0.3 % EYE DROPS - CIPROFLOXACIN 0.3 % EYE DROPS Pt is well appearing, non toxic, not hypoxic and appropriate for outpatient treatment and management at the time of evaluation. Pt's VSS, medication list, allergies, past medical history, and pertinent surgical and family history have been reviewed. -Patient education provided today. -Follow up with your PCP/Specialist in 5-7 days - Report to ED with any new or worsening symptoms or life-threatening concerns - Warning signs of worsening condition explained to patient - Patient left in stable condition after questions answered and patient verbalizes understanding Perla Davis PA-C documented in this encounter [facility] 05-05-2022 Miscellaneous Notes Pt informed, verbalized understanding Amanda Velasco Ma Lets try a z-bo antibiotic in case this is a bacterial infection since COVID and flu are negative. The following approved medication requests have been transmitted electronically. Requested Prescriptions Signed Prescriptions Disp Refills azithromycin (ZITHROMAX Z-BO) 250 mg tablet 6 tablet 0 Sig: Take 2 tablets day one, then, 1 tablet daily until gone. Authorizing Provider: FARIBA GOULD APRN.CRISTINA Patient calls to report that she continues to have sinus pain/pressure and a headache. Patient reports that the Flonase isn't helping. She tried her migraine medication with no relief as well. Afebrile. Patient feels miserable and asking if there is anything else prescriber can send in prior to Sunday. [facility]. Please review and advise, Hellen Morel, RN documented in this encounter [facility] 05-01-2022 Miscellaneous Notes Pt. informed. Maureen Wright LPN We can trial antibiotic regimen of Macrobid x 5 days. Increase fluids to try to flush out irritation. Needs appointment if symptoms do not improve. Thank you, Fariba Gould APRN.CRISTINA The following approved medication requests have been transmitted electronically. Requested Prescriptions Pending Prescriptions Disp Refills nitrofurantoin monohydrate and macrocrystal (MACROBID) 100 mg capsule 10 capsule 0 Sig: Take 1 capsule by mouth twice daily for 5 days. Fariba Gould APRN.CRISTINA Patient calling asking for urine culture results. Went over results, notes below from Fariba Gould AUTOMATIC SHIRRING MACHINE OPERATOR with understanding. Patient said she is still having urgency even though she is not drinking not that liquids. Patient uses [facility] for her pharmacy if needed. . Please call patient and let her know that urine culture was negative for any growth of bacteria. UA did not show any signs of infection but did show blood in urine. Is patient still having symptoms? Thank you, Fariba Gould APRN.CRISTINA documented in this encounter [facility] 04-27-2022 Miscellaneous Notes Pt informed, verbalized understanding Amanda Velasco Ma Orders placed. Please let patient know. Thank you, Fariba Gould APRN.UTILITY WORKER FILM PROCESSING Patient calls and states that she has been having issues with urinary frequency. Patient states that when this usually happens she has a UTI. Patient asking if orders can be placed so that she can check her urine? Please review and advise, Zakiya Jeffrey RN documented in this encounter [facility] 03-17-2022 History of Present illness Narrative This Team Access Model visit is a virtual encounter. It required patient-provider interaction for the medical decision making as documented below. Patient agrees to the visit: Yes Patient Location: [place] CC: Patient presents with: Sinus Problem HPI Debra March is a 37 year old female who is contacted today for a virtual visit. This is an established patient of Dr. Frantz Benson DO. Debra is a new patient to me today. Concerns today.. Sinus troubles -- Sinus headaches, forehead sinus pain, and nasal drainage x 4 weeks. Thought it was her migraines initially but this is a lot more sinus pressure with yellow nasal drainage. Denies any cough or lower respiratory symptoms. Asking if antibiotic will help. Denies any neuro symptoms of blurred vision, changes in vision, weakness, etc. No other concerns or complaints. REVIEW OF SYSTEMS See HPI PAST MEDICAL HISTORY Diagnosis Date Factor 5 Leiden mutation, heterozygous (HCC) Migraine headache Mixed hypercholesterolemia and hypertriglyceridemia 2015 PAST SURGICAL HISTORY Procedure Laterality Date DELIVERY ONLY 11/02/15,01/09/19 , low transverse x 3 TONSILLECTOMY PRIMARY/SECONDARY <AGE 12 Tonsillectomy ALLERGIES Amoxicillin, Ceftin [Cefuroxime Axetil], Ilosone, Naldecon, Penicillin, Phenylephrine, Updsrsxkoof-Bg-Smyndrbjovgvs, Pseudoephedrine, and Red Dye MEDICATIONS ubrogepant (UBRELVY) 100 mg tablet Take 1 tab as needed at onset of migraine. May repeat dose at 2 hours if needed. Max 200 mg per 24 hours. naproxen (NAPROSYN) 500 mg tablet Take 1 tablet two times per day (with meals) for 5-7 days for menstrual migraine. FAMILY HISTORY Problem Relation Age of Onset Cancer Mother 55 multiple myeloma Hyperlipidemia Father Diabetes Father borderline Hyperlipidemia Brother Breast Cancer Maternal Grandmother Diabetes Maternal Grandmother Heart Maternal Grandmother Heart Maternal Grandfather Cancer Paternal Grandmother Brain Heart Paternal Grandfather Heart Attack Paternal Grandfather Social History Tobacco Use Smoking status: Never Smokeless tobacco: Never Vaping Use Vaping Use: Never used Substance Use Topics Alcohol use: Yes Comment: Occasionally Drug use: No EXAM: Deferred physical exam as visit was completed over the phone Patient is speaking in complete sentences without obvious respiratory distress or audible wheezing. Virtual visit completed using video, limited exam completed. GENERAL: alert and appropriate, in no distress, well-hydrated, well nourished, and happy, smiling, interactive SKIN: no rash noted HEAD: normocephalic, no abnormality or lesion noted. Tenderness to frontal sinuses with palpation. DATA REVIEWED: Most recent labs and imaging results. HEPATITIS B(1 of 3 - 3-dose series) Never done COVID-19 VACCINE(1) Never done HEPATITIS C SCREENING Never done HIV SCREENING Never done DTAP,TDAP,TD(1 - Tdap) Never done INFLUENZA(1) due on 01/19/2022 PAP TESTING due on 03/04/2023 HPV TESTING due on 03/04/2023 ASSESSMENT/PLAN: 1. Bacterial sinusitis - ICD9: 473.9, 041.9, ICD10: J32.9, B96.89 - Will begin treatment with Doxycycline - The patient should also be given OTC decongestants prn, OTC cough and cold meds as needed, warm salt water gargles, throat lozenges and/or OTC throat spray as needed, and nasal saline gtts and suction prn for the first 5-7 days of treatment. - Supportive care with plenty of fluids, rest, and analgesia prn. - Follow up in 3-5 days if symptoms persist or worsen. - DOXYCYCLINE MONOHYDRATE 100 MG TABLET Prescription instructions reviewed with patient as applicable. Potential red flag symptoms discussed with the patient. Reviewed appropriate action plan to take if red flag symptoms occur. Patient agreeable to treatment plan. During this patient visit I have spent approximately 15 minutes in counseling regarding treatment options, medications, and test results. Fariba Gould APRN.UTILITY WORKER FILM PROCESSING documented in this encounter [facility] 03-17-2022 Nurse Note Spoke to Debra M Joaquim, confirmed patient is registered on [email or web address] and is prepared for their appointment. Confirmed the patient has updated medications, allergies, and questionnaires via [email or web address]. Informed patient if there is an issue with the connection, provider will send the patient a secure link. If provider is running late, patient should remain connected to the visit. Patient verbalized understanding. documented in this encounter [facility] 03-08-2022 Miscellaneous Notes Pt. informed via My Chart. Please inform patient that she can try Valerian Root 400-800 mg once a day in evening Frantz Benson DO Hi Dr. Stone, Thanks for the email. You recommended a supplement I think during my appointment to take during my time of the month to help with my mood swings, but I forgot to write it down. If you remember could you email me the name of it please? Thanks. Debra documented in this encounter [facility] 03-07-2022 History of Present illness Narrative Episode Visit Count: 7 Therapist That Will Accept/Oversee The Plan Of Care: Ivelisse Rose PT Start of Care Date: 01/03/22 Onset Date: 12/03/21 REHABILITATION AND SPORTS THERAPY PHYSICAL THERAPY PROGRESS REPORT PLAN OF CARE UPDATE: Assessment: Debra March demonstrates moderate improvement in walking and lifting. She hasprogressed toward goals. Patient continues to present with impairments in strength that interfere with lifting . Current prognosis is Good due to: current objective clinical presentation . She will benefit from continued skilled therapy services to meet the updated goals for this plan of care as noted below. Updated 02/02/22 & 03/07/22 Goals for Episode of Care: created on 01/03/22 through 02/28/22 Independent in home exercises. - meeting. Patient will decrease pain rating by 2 points to meet minimal clinical important difference for numeric pain rating scale. - goal met.. Sleep through night without pain/symptoms. - goal met. Maintain proper sitting posture throughout session - goal met. Patient will be able to tolerate bending and lifting without increased Symptoms. - Has been lifting youngest son without difficulty. Patient Goals: Manage symptoms for the future - goal met. Planned Interventions, Frequency, and Duration: , Patient to be seen for PLAN FOR NEXT VISIT: Hold therapy at this time as patient continues with independent HEP SUBJECTIVE: . Patient reports she has not had any back pain for over a week. She states she is walking more and avoiding lifting children. She states she is no longer psuching her children. She states she is trying to Functional Limitations: lifting Pain: Pain Pain Level: 0 Pain Location: Back PROMIS Scales Higher is Better 02/13/2022 02/13/2022 02/13/2022 Phys Func - Score - - - Phys Func - Percentile - - - Social Roles - Score - - - Social Role - Percentile - - - GH Physical - Score - - 47.7 (Good) GH Physical - Percentile 41 % 41 % 41 % GH Mental - Score - - 45.8 (Good) GH Mental - Percentile 34 % 34 % 34 % Self-Eff Symptom - Score - - - Self-Eff Symptom - Percentile - - - T-scores: mean of general population = 50. 5 points is clinically meaningfully difference Percentiles provide an indication of how the patient's score ranks in relation to the general population. Higher percentile rankings indicate better function/quality of life. 50th percentile is the average of the general population and indicates half of respondents had a worse score. Lower is Better 07/22/2021 08/18/2021 Fatigue - Score 45 (within normal limits) 47 (within normal limits) Fatigue - Percentile 69 % 62 % T-scores: mean of general population = 50. 5 points is clinically meaningfully difference Percentiles provide an indication of how the patient's score ranks in relation to the general population. Higher percentile rankings indicate better function/quality of life. 50th percentile is the average of the general population and indicates half of respondents had a worse score. OBJECTIVE MEASURES WITH LEVEL OF FUNCTION: Reflexes - Lower Extremity R Patellar: Absent R Achilles: Absent L Patellar: Absent L Achilles: Absent LE Strength L Hip ABduction: 4/5 Special Tests - Hip and Spine Slump Test: Right Negative TREATMENT: Therapeutic Exercise: 1: reassessment 2: review of current HEP & compliance Skilled Intervention: Educated patient on rationale for performing exercises in regards to ROM and function . Self-Longterm Management: 1: extensive education regarding body's pain response and future expectations for improvement/outcomes Skilled Intervention: Reviewed patient specific diagnosis in relation to activities of daily living/home management. Billing Therapeutic Exercise Treatment Minutes: 20 Self-Care/Home Management Treatment Minutes: 20 Total Treatment Time Minutes (timed/untimed): 40 Katie Rose PT documented in this encounter [facility] 02-21-2022 History of Present illness Narrative Episode Visit Count: 6 Therapist That Will Accept/Oversee The Plan Of Care: Ivelisse Rose PT Start of Care Date: 01/03/22 Onset Date: 12/03/21 REHABILITATION AND SPORTS THERAPY PHYSICAL THERAPY TREATMENT NOTE ASSESSMENT: Debra March tolerated the session with no issues. She demonstrated improvements in understanding need for managing symptoms with compliance of home exercise program that does not increase pain. The patient will continue to benefit from ongoing skilled physical therapy to progress toward set goals. PLAN FOR NEXT VISIT: Reassessment of symptoms in 2 weeks SUBJECTIVE: Patient reports she has had a flare up over the past couple weeks. She states she feels best with walking. She states she has had pain with trying the exercises lying on her stomach. She states she has only been able to do the exercises for her diastasis recti. Patient reports she is not currently taking any pain medication. Pain: Pain Pain Level: 3 Pain Location: Back OBJECTIVE MEASURES WITH LEVEL OF FUNCTION: TREATMENT: Therapeutic Exercise: 1: brief review of current symptoms & HEP 2: supine resisted hip flexion L3 band on feet x 10 3: supine bug x 10 4: SLR w/TA set x 10 5: seated hip hinge w/25# kettle licea x 5 6: review of loading & pain monitoring Skilled Intervention: Skilled judgment was provided in selection of appropriate interventions. Home Exercise Program Assigned: 1: supine hip flexion 2: SLR 3: hip hinge 4: bug Billing Therapeutic Exercise Treatment Minutes: 38 Total Treatment Time Minutes (timed/untimed): 38 Katie Rose PT documented in this encounter [facility] 02-13-2022 Instructions Catarina Manzo MD - 02/13/2022 8:09 AM EDT Menstrual Related Migraine It is common for migraines to occur just before or during your menses. We believe this is due to changes in hormone levels, specifically the drop in estrogen levels, which can be a trigger for migraine. The menstrual migraine window is considered 2 days before flow starts and continues for the first 3 days of menses. There are 3 general treatment strategies: acute treatment enhanced to hit these migraines harder than usual migraines, mini?prevention that is a preventive treatment given before and during the menstrual window, and long?term prevention in which a daily preventive treatment is used throughout the month. Mini-Prevention Strategies: NSAIDs taken twice per day during the 5?7 days surrounding the menstrual window may decrease or eliminate the menstrual migraine. Naproxen 500 mg BID 2. Magnesium started at day 15 of the cycle and continued until menses begins is another mini?prevention strategy that was found effective in a controlled trial. Because the dosing begins 15 days from menses, it is not necessary to have regular predictable cycles to time this prevention, making it a versatile and safe intervention. You may take this daily Keeping a diary of your headaches, recording when they occur in relation to the menstrual cycle, as well as their severity and response to usual treatment, will help in determining the presence or absence of menstrual migraine, present in about 60% of women with migraine. Options vary depending on a woman's overall health and response to treatment. They include stepped?up acute treatment, mini?prevention with NSAIDs, magnesium, triptans or estrogen, or daily prevention with continuous contraception. documented in this encounter [facility] 02-13-2022 History of Present illness Narrative Images from the original note were not included. Head[facility] [address] [place] [address] During the COVID-19 pandemic, the patient's headache clinic evaluation was scheduled as a virtual visit using the following platform: Aldo March was identified by name and and consented to the video evaluation and its limitations. Based on this evaluation it may be necessary for them to schedule a follow up evaluation with me or other neurologists for formal physical examination and if necessary, other studies. CC: Migraine Follow-up Visit Last visit: 06/01/2021 - prescribed Ubrelvy for rescue Interval History: She has been doing really well! Ubrelvy is life changing! It is effective as rescue She has been getting some migraines in the middle of the night and Ubrelvy is not as effective for those. Weather changes and menstrual cycle can be triggers. She usually has 5-7 days of headache with her menstrual cycle Tracking for Migraine Headache Headache Status at Initial Visit: Number of moderate-severe headache days/month: 6 Number of mild headache days/month: 0 Number of headache free days/month: 24 Current Headache Status: Number of moderate-severe headache days/month: 2 Number of mild headache days/month: 5 Number of headache free days/month: 23 Patient reduction in overall headache days: No Patient reduction in moderate-severe headache days: Yes Individual has obtained clinical benefit deemed significant by individual or prescriber (Y/N): Yes Headache Treatment: Current Headache Regimen: Preventative: none Abortive: Ubrelvy Prior Therapies Duration of Use Dose Side effect Analgesic Butalbital/acetaminophen/caffeine (Fioricet) no benefit Anti-Migraine Lasmiditan (Reyvow) palpitations Rizatriptan (Maxalt) palpitations Sumatriptan (Imitrex, Sumavel) palpitations Zolmitriptan (Zomig) palpitations Over the Counter Medications Acetaminophen (Tylenol) Acetaminophen/Aspirin/Caffeine (Excedrin, Goody s) KP review: HEADACHE SCORES: Headache Questions 02/13/2022 ER visits since last office visit: 0 Hospital stays since last office visit 0 Limited ADLs in the last month: 2 Days missed from work or school in the last month: 0 Days headache pain free in the last month: 20 Days per month with ALL of the following symptoms - decreased productivity, light sensitivity and nausea: 2 PRN medication usage in the last month: 10 Patient impression of improvement since last visit: No change HIT-6 02/13/2022 HIT-6 60 (Severe impact) DIANA - 2/7 SCORES 12/04/2016 02/13/2022 DIANA-2 Score 0 1 Migraine Specific QOL - Higher scores indicate better HRQL 02/13/2022 Role Function-Restrictive Transformed Score (range: 0-100) 60 Role Function-Preventive Transformed Score (range: 0-100) 60 Emotional Function Transformed Score (range: 0-100) 60 PHQ-9 07/22/2021 08/17/2021 02/13/2022 Score 1 0 0 Limited Physical Exam on VV: Vital Signs: LMP 02/04/2022 (Approximate) GENERAL: well appearing, in no acute distress, alert HEAD: Normocephalic/atraumatic. NEUROLOGICAL: Mental Status: Alert, oriented to person, place and time, Follows commands, and Speech fluent and appropriate. Cranial Nerves: face symmetric, no dysarthria, hearing grossly intact Motor: moves all extremities equally IMPRESSION: 36 year old woman with PMH of HLD, Factor V Leiden mutation, Migraine, pre-DM, obesity presenting for follow up for Episodic Migraine and Menstrual Migraine. At last visit she was prescribed Ubrelvy and reports excellent response - it is effective at aborting headache and well tolerated. Unfortunately, she still gets high 24 hours headache recurrence during her menstrual window requiring frequent abortive use. We will trial NSAID mini prevention and start magnesium daily for menstrual migraine prevention. PLAN: Magnesium 400-500 mg daily MEDICATION TREATMENT: Medications to Start Taking ubrogepant (UBRELVY) 100 mg tablet Take 1 tab as needed at onset of migraine. May repeat dose at 2 hours if needed. Max 200 mg per 24 hours. naproxen (NAPROSYN) 500 mg tablet Take 1 tablet two times per day (with meals) for 5-7 days for menstrual migraine. Follow-up: 3 months I spent a total of 20 minutes on the date of the service which included preparing to see the patient, [id number] patient care, completing clinical documentation, performing a medically appropriate examination, counseling and educating the patient/family/caregiver, and ordering medications, tests, or procedures. The above plan discussed with the patient. All questions answered. The patient verbalized understanding. Medical decision making was high complexity due to patient's multiple symptoms including Headache and pain, and counseling about diet, medications, and usp implications. The patient has my contact information and my chart sign up information. Catarina Manzo MD Neurology Staff 02/13/2022 Debra March has been previously approved for an Oral Calcitonin Gene-Related Peptide Receptor Antagonist (GEPANT) Ubrogepant for the treatment of acute migraine. The patient has demonstrated the following: Provider attests patient has had a positive clinical response: Yes Patient will not use with another Oral Calcitonin Gene-Related Peptide Receptor Antagonist (GEPANT): Yes Patient's quality of life and ability to perform ADLs has improved: Yes We suggest the patient continue treatment with GEPANT Ubrogepant. The following preventative medications have been tried for three or more months without benefit: The following abortive medications have been tried but require high frequency use which can lead to Medication Overuse Headache: Analgesic Butalbital/acetaminophen/caffeine (Fioricet) no benefit Anti-Migraine Lasmiditan (Reyvow) palpitations Rizatriptan (Maxalt) palpitations Sumatriptan (Imitrex, Sumavel) palpitations Zolmitriptan (Zomig) palpitations Over the Counter Medications Acetaminophen (Tylenol) Acetaminophen/Aspirin/Caffeine (Excedrin, Goody s) documented in this encounter [facility] 02-07-2022 History of Present illness Narrative CC: Debra March is a 36 year old female who presents to the office for physical HPI: Struggling recently with feeling emotional, especially the week before her menstrual cycle, has a 6 year old dtr, 3 year old son and 14 mth old son. She feels she is struggling with being irritable and overwhelmed at times. She feels she is still worried about her husbands Hodgkin lymphoma reoccurring and is interested in speaking with a therapist/counselor as well. No SI or HI. Doesn't want to start a medication if able to avoid it. Has had family situations as well that have occurred. Low back pain, improved with PHYSICAL THERAPY through [facility] [place], feels like she is overall managing her symptoms. Better symptom control PAST MEDICAL HISTORY Diagnosis Date Factor 5 Leiden mutation, heterozygous (HCC) Migraine headache Mixed hypercholesterolemia and hypertriglyceridemia 2015 PAST SURGICAL HISTORY Procedure Laterality Date DELIVERY ONLY 11/02/15,01/09/19 , low transverse x 3 TONSILLECTOMY PRIMARY/SECONDARY <AGE 12 Tonsillectomy Social History: Social History Tobacco Use Smoking status: Never Smokeless tobacco: Never Vaping Use Vaping Use: Never used Substance Use Topics Alcohol use: Yes Comment: Occasionally Drug use: No FAMILY HISTORY Problem Relation Age of Onset Cancer Mother 55 multiple myeloma Hyperlipidemia Father Diabetes Father borderline Hyperlipidemia Brother Breast Cancer Maternal Grandmother Diabetes Maternal Grandmother Heart Maternal Grandmother Heart Maternal Grandfather Cancer Paternal Grandmother Brain Heart Paternal Grandfather Heart Attack Paternal Grandfather Current Outpatient prescriptions: ubrogepant (UBRELVY) 100 mg tablet Take 1 tab as needed at onset of migraine. May repeat dose at 2 hours if needed. Max 200 mg per 24 hours. Allergies: ALLERGIES Allergen Reactions Amoxicillin Rash Ceftin [Cefuroxime * GI Upset Vomiting and diarrhea Ilosone Rash Naldecon Other: See Comments Penicillin Rash Phenylephrine Other: See Comments hallucinations [id number]-[id number]* Other: See Comments hallucinations Pseudoephedrine Other: See Comments hallucinations Red Dye Other: See Comments hallucinations ROS: See HPI PE: 02/07/22 1418 BP: 112/76 Pulse: 88 Resp: 12 Temp: 36.1 C (97 F) TempSrc: Left Tympanic Weight: 77.6 kg (171 lb) Height: 155.5 cm (5' 1.22") Gen: A&O, NAD, non-toxic appearing, Pleasant, cooperative HEENT: NT/AC, PERRLA, EOMs intact b/l, nares clear and patent b/l, pharynx without erythema, exudate or lesions. MMM, Uvula midline. EACs without erythema or debris. TMs pearly cardenas with intact landmarks b/l. Neck: supple, No cervical LAD, no thyromegaly, no carotid bruits CV: RRR, normal S1 and S2, no murmurs, no gallops, no rubs, Pulses 2+ and symmetric in UE and LE b/l Lungs: normal respiratory effort, CTA b/l, no wheezing or rhonchi or rales Abd: soft, NT, ND, +BS, no hepatosplenomegaly MS: FROM all 4 extremities Neuro: CN II-XII intact b/l, strength 5/5 b/l UE and LE, DTRs 2/4 UE and LE, sensation intact. Skin: warm, dry, intact, No rashes or lesions on exposed skin. ASSESSMENT/PLAN: 1. Well adult exam - ICD9: V70.0, ICD10: Z00.00 (primary diagnosis) - Counseled on healthy diet and regular exercise - Calcium intake with supplements or by diet of 1000 mg/day for under 50, 4995-3646 mg/day for 50+ - Discussed need and benefit for weight loss. BMI 32.08 kg/(m^2) - TSH BLD - T3 FREE BLD - T4 FREE/FREE THYROX - CBC + DIFF - COMP METABOLIC PANEL - HGB A1C 2. Need for influenza vaccination - ICD9: V04.81, ICD10: Z23 - INFLUENZA VACCINE QUADRIVALENT 6 MO - 64 YRS IM 3. Pre-menstrual mood disorder - ICD9: 625.4, ICD10: F32.81 She would like to consider therapy/counseling, will reach out to determine local therapists for her as well as marriage counseling options. Labs as ordered. - TSH BLD - T3 FREE BLD - T4 FREE/FREE THYROX - CBC + DIFF - COMP METABOLIC PANEL - TESTOSTERONE, FREE AND TOTAL - PROGESTERONE BLD - FSH BLD 4. Lumbosacral radiculopathy at L5 - ICD9: 724.4, ICD10: M54.17 Chronic low back pain - Ice for localized tenderness - Warm moist heat for 20 min three times a day 5. Acute bilateral low back pain with bilateral sciatica - ICD9: 724.2, 724.3, ICD10: M54.42, M54.41 Chronic low back pain - Ice for localized tenderness - Warm moist heat for 20 min three times a day Frantz Benson, DO To ER if develops chest pain, shortness of breath, or severe worsening of symptoms. Discussed risks, benefits, alternatives, and potential side effects of medications. Patient expressed understanding and agreed with the plan. Frantz Benson DO [address] [place] [address] documented in this encounter [facility] 02-02-2022 History of Present illness Narrative Episode Visit Count: 5 Therapist That Will Accept/Oversee The Plan Of Care: Ivelisse Rose PT Start of Care Date: 01/03/22 Onset Date: 12/03/21 REHABILITATION AND SPORTS THERAPY PHYSICAL THERAPY PROGRESS REPORT PLAN OF CARE UPDATE: Assessment: Debra March demonstrates moderate improvement in bending. She hasprogressed toward goals. Patient continues to present with impairments in strength that interfere with bending;lifting . Current prognosis is Good due to: current objective clinical presentation;good overall health status . She will benefit from continued skilled therapy services to meet the updated goals for this plan of care as noted below. Updated 02/02/22 Goals for Episode of Care: created on 01/03/22 through 02/28/22 Independent in home exercises. - meeting. Patient will decrease pain rating by 2 points to meet minimal clinical important difference for numeric pain rating scale. - progressing. Sleep through night without pain/symptoms. - goal met. Maintain proper sitting posture throughout session - goal met. Patient will be able to tolerate bending and lifting without increased Symptoms. - progressing, but aware of proper form. Patient Goals: Manage symptoms for the future - goal met. Planned Interventions, Frequency, and Duration: 1x every other week, 4 weeks Total Number of Visits Planned: 2 Patient to be seen for Therapeutic exercise (15178);Therapeutic activities (66875);Self-fci management (88126) PLAN FOR NEXT VISIT: Will plan to progress HEP every other week over next month SUBJECTIVE: . Patient reports she has been lifting the kids more this week and has had some increase in overall soreness. She states she has not had any severe episodes of back pain. Functional Limitations: bending;lifting Pain: Pain Pain Level: 2 Pain Location: Back PROMIS Scales Higher is Better 12/04/2016 07/22/2021 08/18/2021 Phys Func - Score - 35 (moderate dysfunction) 42 (mild dysfunction) Phys Func - Percentile - 7 % 21 % Social Roles - Score - 30 (moderate dysfunction) 39 (moderate dysfunction) Social Role - Percentile - 2 % 14 % GH Physical - Score - 42.3 (Good) - GH Physical - Percentile 53 % 22 % - GH Mental - Score - 50.8 (Very Good) - GH Mental - Percentile 63 % 53 % - Self-Eff Symptom - Score - - 41 (Average) Self-Eff Symptom - Percentile - - 18 % T-scores: mean of general population = 50. 5 points is clinically meaningfully difference Percentiles provide an indication of how the patient's score ranks in relation to the general population. Higher percentile rankings indicate better function/quality of life. 50th percentile is the average of the general population and indicates half of respondents had a worse score. Lower is Better 07/22/2021 08/18/2021 Fatigue - Score 45 (within normal limits) 47 (within normal limits) Fatigue - Percentile 69 % 62 % T-scores: mean of general population = 50. 5 points is clinically meaningfully difference Percentiles provide an indication of how the patient's score ranks in relation to the general population. Higher percentile rankings indicate better function/quality of life. 50th percentile is the average of the general population and indicates half of respondents had a worse score. OBJECTIVE MEASURES WITH LEVEL OF FUNCTION: LE Strength R Hip Extension: 4/5 (with left lower back pain) R Hip ABduction: 4/5 L Hip Extension: 4+/5 L Hip ABduction: 4+/5 Functional Strength R Single Leg Heel Raise: 10 L Single Leg Heel Raise: 10 (early fatigue) TREATMENT: Therapeutic Exercise: 1: reassessment 2: plank - attempted, but unable 3: side plank/bridge x 10 4: quadriped hip ext x 10 5: quadriped bird dog x 5 each 6: reviewed HEP & compliance Skilled Intervention: Skilled judgment was provided in selection of appropriate interventions. Provided written instruction for home exercise program to facilitate proper performance and compliance. Home Exercise Program Assigned: 1: side bridge 2: bird dog Billing Therapeutic Exercise Treatment Minutes: 45 Total Treatment Time Minutes (timed/untimed): 50 Katie Rose PT documented in this encounter [facility] 01-17-2022 History of Present illness Narrative Episode Visit Count: 3 Therapist That Will Oversee The Plan Of Care: Ivelisse Rose PT Start of Care Date: 01/03/22 Onset Date: 12/03/21 REHABILITATION AND SPORTS THERAPY PHYSICAL THERAPY TREATMENT NOTE ASSESSMENT: Debra March tolerated the session with no issues. She demonstrated improvements in ability to complete exercises correctly once cued. The patient will continue to benefit from ongoing skilled physical therapy to progress toward set goals. PLAN FOR NEXT VISIT: Continue to progress core strengthening for HEP SUBJECTIVE: Patient reports she has been maintaining compliance with her home exercise program 4x/day. She states she has only gotten occasional "twinges" of pain when lifting her child. She reports no pain at the moment. Pain: Pain Pain Level: 0 Pain Location: Back OBJECTIVE MEASURES WITH LEVEL OF FUNCTION: TREATMENT: Therapeutic Exercise: 1: standing rev UBE L1x4' w/TA sets 10" every 20" & review of symptoms w/emphasis on breathing 2: TA set w/towel diastasis correction 5"x10 3: SLR w/TA set 3# 2x10 4: supine resisted hip flexion L2 band around ankles 2x10 5: prone upper body extension 2x10 6: prone hip extension 7: standing sh flexion at wall 1# 5" x 10 Skilled Intervention: Patient was educated in proper exercise technique and purpose for exercises. Neuromuscular Re-Education: 1: standing rows on AIREX L4 2x15 2: pulldowns standing on AIREX pad L4 2x15 3: paloff standing on AIREX pad L3 2x10 Skilled Intervention: Correct performance of home program was facilitated with verbal and visual cueing. Home Exercise Program Assigned: 1: prone upper body extension 2: prone hip extension Billing Therapeutic Exercise Treatment Minutes: 35 Neuromuscular Re-Education Treatment Minutes: 10 Total Treatment Time Minutes (timed/untimed): 45 Katie Rose PT documented in this encounter [facility] 01-10-2022 History of Present illness Narrative Episode Visit Count: 2 Therapist That Will Oversee The Plan Of Care: Ivelisse Rose PT Start of Care Date: 01/03/22 Onset Date: 12/03/21 REHABILITATION AND SPORTS THERAPY PHYSICAL THERAPY TREATMENT NOTE ASSESSMENT: Debra March tolerated the session with no issues. She demonstrated difficulty with L sided core stability. The patient will continue to benefit from ongoing skilled physical therapy to progress toward set goals. PLAN FOR NEXT VISIT: review core ex SUBJECTIVE: Pt reports no pain and needing a core program for 10-20 minutes she can do throughout the week. Pain: OBJECTIVE MEASURES WITH LEVEL OF FUNCTION: ZEN above naval : 2 finger width TREATMENT: Therapeutic Exercise: 1: *review ZEN info and correction, instructed to cont daily up to 30 rep 2: *TA 10x 5" with counting outload to prevent holding breath 3: "ta with alt july 2x20 4: *Ta with SLR 2x10 5: *GS + bridge 2x10 5" 6: *pulldown L3 2x10 7: *rows L3 2x10 8: *paloff B 2x10 L3 9: *focus on supine exercises one day and standing other working on 4x a wk Skilled Intervention: Skilled judgment was provided in selection of appropriate interventions. Billing Therapeutic Exercise Treatment Minutes: 40 Total Treatment Time Minutes (timed/untimed): 40 Alba Boo PT documented in this encounter [facility] 01-03-2022 History of Present illness Narrative Episode Visit Count: 1 Therapist That Will Oversee The Plan Of Care: Ivelisse Rose PT Start of Care Date: 01/03/22 Onset Date: 12/03/21 Patient Identified by Name and Date of : Yes REHABILITATION AND SPORTS THERAPY PHYSICAL THERAPY EVALUATION PLAN OF CARE: Assessment: Debra March presents with chief complaint of lower back that interferes with lifting;sleeping . She presents with impairments in posture and strength . . Prognosis for therapy is Good due to: current objective clinical presentation;good overall health status . She will benefit from skilled therapy services to meet the goals established for this plan of care as noted below. Goals for Episode of Care: created on 01/03/22 through 02/28/22 Independent in home exercises. Patient will decrease pain rating by 2 points to meet minimal clinical important difference for numeric pain rating scale. Sleep through night without pain/symptoms. Maintain proper sitting posture throughout session Patient will be able to tolerate bending and lifting without increased symptoms. Patient Goals: Manage symptoms for the future Planned Interventions, Frequency, and Duration: Current Frequency: 1x/week Duration: 8 weeks Total Number of Visits Planned: 8 Planned Treatment Interventions: Neuromuscular re-education (09428);Therapeutic exercise (93187);Therapeutic activities (04332);Self-fci management (25178) PLAN FOR NEXT VISIT: Plan to condense and progress HEP so patient is able to maintain compliance for maintenance purposes 2-3x/week Patient demonstrates good understanding of plan of care and treatment. The above goals and plan of care were discussed and agreed upon by patient/family. SUBJECTIVE: Debra March is a 36 year old female seen today for onset of lower back & neck pain Patient Goals: Manage symptoms for the future Functional Limitations: lifting;sleeping Patient reports she was feeling good for quite some time until she lifted chairs in November. She states she had increased back pain the next morning in her lower back and numbness to her right leg 2 days later that lasted up to a 1 week. She states she tried to do some self exercises in her pool. She states she started feeling better with regard to her lower back about 2 weeks ago. She states she was unable to move her neck for 2 weeks, but is better is now. Prior Level of Function: Independent without limitations Relevant History Past Relevant Medical Conditions: Per review with patient no issues were identified Recreation / Current Exercise: walking w/kids & getting in pool for exercise with kids Hobbies / Interests: Continued buying & selling furniture Home Environment Patient Lives With: Family Home Type: Multi-Level Laundry: Get some assist from with ADL's Intake Information: Prescription present Previous Treatment: Physical Therapy Falls Interview: No positive findings with falls interview Spine History Symptoms Location at Onset: Back Symptoms Since Onset: Improving Pain is Worse Always: Bending (lifting) Pain is Better Sometimes: AM Sleeping Position: Side lying right Sleep Affected by Pain: Pain awakens Pain: Pain Pain Level: 0 Pain Location: Back PROMIS Scales Higher is Better 12/04/2016 07/22/2021 08/18/2021 Phys Func - Score - 35 (moderate dysfunction) 42 (mild dysfunction) Phys Func - Percentile - 7 % 21 % Social Roles - Score - 30 (moderate dysfunction) 39 (moderate dysfunction) Social Role - Percentile - 2 % 14 % GH Physical - Score - 42.3 (Good) - GH Physical - Percentile 53 % 22 % - GH Mental - Score - 50.8 (Very Good) - GH Mental - Percentile 63 % 53 % - Self-Eff Symptom - Score - - 41 (Average) Self-Eff Symptom - Percentile - - 18 % T-scores: mean of general population = 50. 5 points is clinically meaningfully difference Percentiles provide an indication of how the patient's score ranks in relation to the general population. Higher percentile rankings indicate better function/quality of life. 50th percentile is the average of the general population and indicates half of respondents had a worse score. Lower is Better 07/22/2021 08/18/2021 Fatigue - Score 45 (within normal limits) 47 (within normal limits) Fatigue - Percentile 69 % 62 % T-scores: mean of general population = 50. 5 points is clinically meaningfully difference Percentiles provide an indication of how the patient's score ranks in relation to the general population. Higher percentile rankings indicate better function/quality of life. 50th percentile is the average of the general population and indicates half of respondents had a worse score. OBJECTIVE MEASURES WITH LEVEL OF FUNCTION: Reflexes - Lower Extremity R Patellar: Absent R Achilles: Absent L Patellar: Absent L Achilles: Absent Spine Observations R Lumbar Spine Palpation Tenderness: No tenderness noted L Lumbar Spine Palpation Tenderness: No tenderness noted Lumbar Spine AROM Lumbar Flexion: Normal Lumbar Extension: Normal Lumbar R Side-Bend: Normal Lumbar L Side-Bend: Normal Lumbar R Rotation: Minimal limitation Lumbar L Rotation: Minimal limitation LE Strength Trunk Strength: fair R LE Strength: gross 4+/5 L LE Strength: gross 4+/5 Functional Strength R Single Leg Heel Raise: 5 L Single Leg Heel Raise: 5 Special Tests - Hip and Spine Hip and Spine Special Tests: Slump Test;SLR Test SLR Test: Right Negative Slump Test: Right Positive Education: Education Learning Preferences: Explanation;Performance;Printed Materials Barriers: None Learning/educational needs: Home exercise program;Plan of Care Education Provided: Yes, see treatment interventions for education provided Education Provided To: Patient Education Mode/Type: Explanation/Discussion;Performance Response to Education/Teach Back: States/Identifies;Return Demonstration TREATMENT: PT Treatment Interventions: Therapeutic Exercise;Self-Longterm Management Evaluation Evaluation Therapeutic Exercise: 1: reviewed supine TA set w/diastasis correction 2: reviewed YOUNG Skilled Intervention: Patient was educated in proper exercise technique and purpose for exercises. Self-Longterm Management: 1: pt educated on exam findings & agreeable to plan of care 2: pt educated on sleep postures using a towel roll in bottom of pillow 3: pt educated on posture correction using a towel roll Skilled Intervention: Reviewed patient specific diagnosis in relation to activities of daily living/home management. Billing * Evaluation Low Complexity: 1 Unit Therapeutic Exercise Treatment Minutes: 10 Self-Care/Home Management Treatment Minutes: 15 Total Treatment Time Minutes (timed/untimed): 45 Katie Rose PT documented in this encounter [facility] 12-13-2021 Miscellaneous Notes Patient notified and verbalized understanding eDvon Lazcano Cma Order placed. Anastasiya Erwin APRN.CRISTINA Patient reports pcp had ordered PT for her lower back pain, and it helped. Reports 2 weeks ago she lifted a chair and thinks it messed up her back- has had lower back pain since. Thinks it's the same problem she had before. Lower back pain, same disc. Leg falls asleep sometimes, and now having neck pain- which she didn't have before. Asking provider to please place another order for PT and she will schedule appt. documented in this encounter [facility] 10-11-2021 Miscellaneous Notes Physician: Arlet Call from patient requesting refill. Please E-Scribe Last OV: 06/01/21 with Arlet Future OV: not scheduled Pending Prescriptions Disp Refills UBROGEPANT 100 MG TABLET 10 tablet 5 Sig: Take 1 tab as needed at onset of migraine. May repeat dose at 2 hours if needed. Max 200 mg per 24 hours. DARLYN: No Pharmacy Name: [facility] documented in this encounter [facility] 09-27-2021 History of Present illness Narrative Episode Visit Count: 11 Therapist That Will Oversee The Plan Of Care: Ivelisse Rose PT Start of Care Date: 08/19/21 Onset Date: 07/08/21 REHABILITATION AND SPORTS THERAPY PHYSICAL THERAPY TREATMENT NOTE ASSESSMENT: Debra March tolerated the session with expected muscle soreness and no issues. She demonstrated difficulty with UE Noodle holds due to weakness in core, but overall dd well. The patient will continue to benefit from ongoing skilled physical therapy to progress toward set goals. PLAN FOR NEXT VISIT: Pool: progress core/LE strength SUBJECTIVE: Patient report she is feeling better. Pain: Pain Pain Location: Back OBJECTIVE MEASURES WITH LEVEL OF FUNCTION: TREATMENT: Aquatic Therapy: Aquatic Therapy ([id number]): Walking;Posture / Trunk Exercise;Upper Extremity / Cervical;Lower Extremity;Vertical / [place] - Buoyancy Supported Walking: Forward Walking;Lateral/ Side Stepping;1 Forward Walking: x 3 laps Lateral/Side Stepping: x 3 laps 1: Walk with KB x 3 laps Posture/Trunk Exercise: Abdominal Stabilization Pull Downs;Abdominal Stabalization Push - Pull;2 Abdominal Stabilization Pull Downs : UENPD LARGE 2x10 Abdominal Stabalization Push - Pull: KB Push x20 1: Oblique Pushdowns LARGE 2x10 2: UE Noodle Holds LARGE 15"x3 Lower Extremity: Squats;Hip Flexion;Hip Extension;Hip Abduction;3 Squats: 8" x20 Hip Flexion: x20 Hip Extension: x20 Hip Abduction: x20 1: Lower extremity noodle pushdowns LARGE x20 T Float: 3.5# x10' Abbreviation Jarquin: BA = buoyancy assisted BR = buoyancy resisted BS = buoyancy supported reps = repetitions HEP = home exercise program Skilled Intervention: Patient was educated in proper exercise technique and purpose for exercises. Skilled judgment was provided in selection of appropriate interventions. Correct performance of exercises was facilitated with verbal and visual cueing. Billing Aquatic Therapy Treatment Minutes: 25 Total Treatment Time Minutes (timed/untimed): 45 Priyanka Ferris PTA documented in this encounter [facility] 09-26-2021 History of Present illness Narrative Episode Visit Count: 10 Therapist That Will Oversee The Plan Of Care: Ivelisse Rose PT Start of Care Date: 08/19/21 Onset Date: 07/08/21 REHABILITATION AND SPORTS THERAPY PHYSICAL THERAPY PROGRESS REPORT PLAN OF CARE UPDATE: Assessment: Debra March demonstrates moderate improvement in sitting. She hasprogressed toward goals. Patient continues to present with impairments in strength that interfere with lifting . Current prognosis is Good due to: current objective clinical presentation . She will benefit from continued skilled therapy services to meet the updated goals for this plan of care as noted below. Updated 09/26/21 Goals for Episode of Care: created on 08/19/21 through 10/14/21 Independent in home exercises. - meeting. Patient will decrease pain rating by 2 points to meet minimal clinical important difference for numeric pain rating scale. - progressing. Restore pain-free lumbar ROM to within normal limits without pain to allow for pain free bending for activities of daily living's. - able to bend to lift light objects. Sleep through night without pain/symptoms. - goal met. Sit 4 hours without pain/symptoms to allow for driving on vacation. - goal met. Patient will be able to tolerate bending and lifting for taking care of children without increased symptoms. - still with pain when trying to lift children. Patient Goals: Reduce and prevent further back pain Planned Interventions, Frequency, and Duration: 2x/week, 4 weeks Total Number of Visits Planned: 8 Patient to be seen for Aquatic PT ([id number]) SUBJECTIVE: . Patient reports she just returned from vacation in which she had to sit in the car for up to 15 hours without significant increase in pain. Functional Limitations: lifting Pain: Pain Pain Level: 2 Pain Location: Back PROMIS Scales Higher is Better 12/04/2016 07/22/2021 08/18/2021 Phys Func - Score - 35 (moderate dysfunction) 42 (mild dysfunction) Phys Func - Percentile - 7 % 21 % Social Roles - Score - 30 (moderate dysfunction) 39 (moderate dysfunction) Social Role - Percentile - 2 % 14 % GH Physical - Score - 42.3 (Good) - GH Physical - Percentile 53 % 22 % - GH Mental - Score - 50.8 (Very Good) - GH Mental - Percentile 63 % 53 % - Self-Eff Symptom - Score - - 41 (Average) Self-Eff Symptom - Percentile - - 18 % T-scores: mean of general population = 50. 5 points is clinically meaningfully difference Percentiles provide an indication of how the patient's score ranks in relation to the general population. Higher percentile rankings indicate better function/quality of life. 50th percentile is the average of the general population and indicates half of respondents had a worse score. Lower is Better 07/22/2021 08/18/2021 Fatigue - Score 45 (within normal limits) 47 (within normal limits) Fatigue - Percentile 69 % 62 % T-scores: mean of general population = 50. 5 points is clinically meaningfully difference Percentiles provide an indication of how the patient's score ranks in relation to the general population. Higher percentile rankings indicate better function/quality of life. 50th percentile is the average of the general population and indicates half of respondents had a worse score. OBJECTIVE MEASURES WITH LEVEL OF FUNCTION: Posture / Alignment Tragus to wall (inches): 6.25 inches Reflexes - Lower Extremity R Patellar: Absent R Achilles: Absent L Patellar: Absent L Achilles: Absent Lumbar Spine AROM Lumbar Extension: Normal Lumbar R Side [place]: Normal Lumbar L Side [place]: Normal LE Strength R Hip Extension: 4/5 R Hip Flexion (L2): 4+/5 L Hip Extension: 4/5 L Hip Flexion (L2): 4+/5 Functional Strength R Single Leg Heel Raise: 10 L Single Leg Heel Raise: 10 Special Tests - Hip and Spine Slump Test: Right Negative TREATMENT: Therapeutic Exercise: 1: reassessment 2: review of HEP w/encoragement to maintain compliance Skilled Intervention: Skilled judgment was provided in selection of appropriate interventions. Billing Therapeutic Exercise Treatment Minutes: 30 Total Treatment Time Minutes (timed/untimed): 30 Katie Rose PT documented in this encounter [facility] 09-22-2021 History of Present illness Narrative Episode Visit Count: 9 Therapist That Will Oversee The Plan Of Care: Ivelisse Milton, PT Start of Care Date: 08/19/21 Onset Date: 07/08/21 REHABILITATION AND SPORTS THERAPY PHYSICAL THERAPY TREATMENT NOTE ASSESSMENT: Debra March tolerated the session with expected muscle soreness. She demonstrated good tolerance for today's progressions. The patient will continue to benefit from ongoing skilled physical therapy to progress toward set goals. PLAN FOR NEXT VISIT: Pool: progress core/LE strength SUBJECTIVE: Patient reports she has been feeling better recently, lifting increases pain. Pain: Pain Pain Level: 2 Pain Location: Back OBJECTIVE MEASURES WITH LEVEL OF FUNCTION: TREATMENT: Aquatic Therapy: Aquatic Therapy ([id number]): Walking;Posture / Trunk Exercise;Upper Extremity / Cervical;Lower Extremity;Vertical / [place] - Buoyancy Supported Walking: Forward Walking;Lateral/ Side Stepping;1 Forward Walking: x 3 laps Lateral/Side Stepping: x 3 laps 1: Walk with KB x 3 laps Posture/Trunk Exercise: Abdominal Stabilization Pull Downs;Abdominal Stabalization Push - Pull;2 Abdominal Stabilization Pull Downs : UENPD LARGE 2x10 Abdominal Stabalization Push - Pull: KB Push x20 1: Oblique Pushdowns LARGE 2x10 Lower Extremity: Squats;Hip Flexion;Hip Extension;Hip Abduction;3 Squats: 8" x20 Hip Flexion: x20 Hip Extension: x20 Hip Abduction: x20 1: Lower extremity noodle pushdowns LARGE x20 T Float: 3.5# x10' Abbreviation Jarquin: BA = buoyancy assisted BR = buoyancy resisted BS = buoyancy supported reps = repetitions HEP = home exercise program Skilled Intervention: Patient was educated in proper exercise technique and purpose for exercises. Skilled judgment was provided in selection of appropriate interventions. Correct performance of exercises was facilitated with verbal and visual cueing. Billing Aquatic Therapy Treatment Minutes: 25 Total Treatment Time Minutes (timed/untimed): 40 Priyanka Ferris PTA documented in this encounter [facility] 09-08-2021 History of Present illness Narrative Episode Visit Count: 7 Therapist That Will Oversee The Plan Of Care: Ivelisse Rose PT Start of Care Date: 08/19/21 Onset Date: 07/08/21 REHABILITATION AND SPORTS THERAPY PHYSICAL THERAPY TREATMENT NOTE ASSESSMENT: Debra March tolerated the session with expected muscle soreness. She demonstrated fair tolerance for today's session. She was advised to try to avoid doing too much at home, even if she is feeling better. The patient will continue to benefit from ongoing skilled physical therapy to progress toward set goals. PLAN FOR NEXT VISIT: Pool: progress core/LE strength SUBJECTIVE: Patient reports she had increased pain after the last session, but then felt better yesterday, so she did more, and it hurting again today. Pain: Pain Pain Level: 3 Pain Location: Back OBJECTIVE MEASURES WITH LEVEL OF FUNCTION: TREATMENT: Aquatic Therapy: Aquatic Therapy ([id number]): Walking;Posture / Trunk Exercise;Upper Extremity / Cervical;Lower Extremity;Vertical / [place] - Buoyancy Supported Walking: Forward Walking;Lateral/ Side Stepping;1 Forward Walking: x 3 laps Lateral/Side Stepping: x 3 laps 1: Walk with KB x 3 laps Posture/Trunk Exercise: Abdominal Stabilization Pull Downs;Abdominal Stabalization Push - Pull;2 Abdominal Stabilization Pull Downs : UENPD LARGE x15 Abdominal Stabalization Push - Pull: KB Push x15 Lower Extremity: Squats;Hip Flexion;Hip Extension;Hip Abduction;3 Squats: 8" x15 Hip Flexion: x15 Hip Extension: x15 Hip Abduction: x15 1: Lower extremity noodle pushdowns LARGE x15 T Float: 3.5# x10' Abbreviation Jarquin: BA = buoyancy assisted BR = buoyancy resisted BS = buoyancy supported reps = repetitions HEP = home exercise program Skilled Intervention: Patient was educated in proper exercise technique and purpose for exercises. Skilled judgment was provided in selection of appropriate interventions. Correct performance of exercises was facilitated with verbal and visual cueing. Billing Aquatic Therapy Treatment Minutes: 25 Total Treatment Time Minutes (timed/untimed): 35 Priyanka Ferris PTA documented in this encounter [facility] 08-31-2021 History of Present illness Narrative Episode Visit Count: 4 Therapist That Will Oversee The Plan Of Care: Ivelisse Rose PT Start of Care Date: 08/19/21 Onset Date: 07/08/21 REHABILITATION AND SPORTS THERAPY PHYSICAL THERAPY TREATMENT NOTE ASSESSMENT: Debra March tolerated the session with no issues. She demonstrated minor provocation of low back pain during prone hip extension. Discomfort did not last after completion of exercise. Discussed using lumbar support when sitting as well as being more aware of body mechanics when performing ADL's. The patient will continue to benefit from ongoing skilled physical therapy to progress toward set goals. PLAN FOR NEXT VISIT: continue to work on diaphragmatic breathing, abdominal stabilization and glut strength SUBJECTIVE: Pt states she was confused how to perform diaphragmatic breathing and TA set after last session. Pt states she had a lot going on and had difficulty focusing. Pt states she can't really remember how she felt after last session. Pt reports her pain significantly increased after sitting in chair at a restaurant for dinner. Pt states driving also aggravates her symptoms, drove to [place] over the weekend. Pt reports she did ok swimming her her kids while she was there. Pt states she is feeling pretty good today with minimal complaints of back pain. Pt states she hasn't been lifting her children yet today. Pt states she finds reduction of pain when stretching her entire body (standing good morning stretch). Pt reports she also experienced relief with her applying traction to her LE's. Pain: Pain Pain Level: 2 Pain Location: Back OBJECTIVE MEASURES WITH LEVEL OF FUNCTION: Pelvic Floor Muscle Assessment Diastasis Rectus Abdominis: Above Umbilicus;At Umbilicus Above Umbilicus (fingerwidth separation): 3 At Umbilicus (fingerwidth separation): 3.5 TREATMENT: Therapeutic Exercise: 1: *prone glut set 5" hold x15 2: prone hip extension with glut set x10 each LE 3: *hooklying TA set with clams green 2x10 (cuing to breathe throughout) 4: *bridge with glut set andgreen t-band 2x10 5: *good morning stretch 10" hold x3 6: DR check and correction information presented 7: discussed using lumbar support in supportive chairs, continuing to be aware of body mechanics Skilled Intervention: Patient was educated in proper exercise technique and purpose for exercises. Reviewed and educated patient on additions/changes for home exercise program as above (*). Skilled judgment was provided in selection of appropriate interventions. Correct performance of therapeutic exercises was facilitated with verbal cuing. Billing Therapeutic Exercise Treatment Minutes: 40 Total Treatment Time Minutes (timed/untimed): 40 Mray Jimenez, ASSEMBLER BILLIARD TABLE documented in this encounter [facility] 08-18-2021 History of Present illness Narrative POPULATION HEALTH NAVIGATION OUTREACH Action/FYI AI consult order dated Pt identified by name and : YES, via phone Outreach Outcome/Action Spoke to patient or caregiver: Patient declined Reason for Outreach Care Gap or Scheduling/Wellness visits Payer: Payor: MMO / Plan: MMO [employer] / Product Type: PPO / Care Gap Reviewed:: AI Reminder: Reminder note to check Health Maintenance for items below Health Maintenance items due: COVID-19 VACCINE(1) Never done HEPATITIS C SCREENING Never done HIV SCREENING Never done DTAP,TDAP,TD(1 - Tdap) Never done Message Sent to Practice: No Navigation Signature: Luisa Fraga August 18, 2021 12:07 PM documented in this encounter [facility] 08-18-2021 History of Present illness Narrative Physical Medicine and Rehabilitation F/u virtual patient August 18, 2021 SUBJECTIVE HISTORY OF PRESENT ILLNESS: Debra March is a 36 year old Woman evaluated for back pain, but 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 Back pain is still there but improving. She is going back to PT tomorrow and d/w her about traction ACTIVE PROBLEM LIST Intractable Migraine Without Status Migrainosus Mixed Hypercholesterolemia and Hypertriglyceridemia Migraine Headache Factor 5 Leiden Mutation, Heterozygous (Hcc) Chest Pain Palpitations PAST MEDICAL HISTORY Diagnosis Date Factor 5 Leiden mutation, heterozygous (HCC) Migraine headache Mixed hypercholesterolemia and hypertriglyceridemia 2015 PAST SURGICAL HISTORY Procedure Laterality Date DELIVERY ONLY 11/02/15,01/09/19 , low transverse x 3 TONSILLECTOMY PRIMARY/SECONDARY <AGE 12 Tonsillectomy Social History Tobacco Use Smoking status: Never Smoker Smokeless tobacco: Never Used Vaping Use Vaping Use: Never used Substance Use Topics Alcohol use: Yes Comment: Occasionally Drug use: No FAMILY HISTORY Problem Relation Age of Onset Cancer Mother 55 multiple myeloma Hyperlipidemia Father Diabetes Father borderline Hyperlipidemia Brother Breast Cancer Maternal Grandmother Diabetes Maternal Grandmother Heart Maternal Grandmother Heart Maternal Grandfather Cancer Paternal Grandmother Brain Heart Paternal Grandfather Heart Attack Paternal Grandfather ALLERGIES Allergen Reactions Amoxicillin Rash Ceftin [Cefuroxime * GI Upset Vomiting and diarrhea Ilosone Rash Naldecon Other: See Comments Penicillin Rash Phenylephrine Other: See Comments hallucinations Nahhgecggim-Po-Xmie* Other: See Comments hallucinations Pseudoephedrine Other: See Comments hallucinations Red Dye Other: See Comments hallucinations CURRENT MEDICATIONS: ubrogepant (UBRELVY) 100 mg tablet Take 1 tab as needed at onset of migraine. May repeat dose at 2 hours if needed. Max 200 mg per 24 hours. REVIEW OF SYSTEMS: GENERAL: Denies fever, chills malaise and weight loss. HEENT: No recent change in vision or hearing. CARDIOVASCULAR: Denies chest pain, history of A-fib, valvular disease, or pacemaker/ICD. RESPIRATORY: Denies SOB, sputum production, and hemoptysis. GI: Denies GI ulcers, inflammatory disease, or liver disease. : Denies change in frequency or urgency, kidney disease, and burning with urination. MUSCULOSKELETAL: see hpi SKIN: Denies rash or itching. PSYCHOLOGICAL: Denies uncontrolled depression or anxiety. NEURO: Denies CVA, seizures, headaches. ENDOCRINE: Denies diabetes, thyroid disease. HEMATOLOGY/LYMPHOLOGY: Denies cancer, bleeding or clotting disorders, anemia,and DVT's. ALLERGIC/IMMUNOLOGICAL: Denies risks for infection, or recent MRSA infections. OBJECTIVE: PHYSICAL EXAM No VS given VV GENERAL APPEARANCE: larger habitus but well nourished, well developed, and no apparent distress. NEURO PSYCH: Mood pleasant. Benign affect. Breathing unlabored Limited exam Mainly discussion Data Review: [facility] records independently reviewed MRI lumbar 08/05/21: L4-L5: Minimal right paracentral disc protrusion makes near contact with the right L5 nerve root. Additional minor spondylosis and stenosis as detailed. Suspected cholelithiasis and left ovarian cyst. Correlation with abdominal ultrasound and pelvic ultrasound recommended. Anatomic Thoracic/Lumbar Variant: Transitional L5 vertebral body. L4-5 is considered the level of the iliac crest and there are 5 lumbar-type vertebrae. L4-L5: Minimal right paracentral disc protrusion makes near contact with the right L5 nerve root. Additional minor spondylosis and stenosis as detailed. Suspected cholelithiasis and left ovarian cyst. Correlation with abdominal ultrasound and pelvic ultrasound recommended. Anatomic Thoracic/Lumbar Variant: Transitional L5 vertebral body. L4-5 is considered the level of the iliac crest and there are 5 lumbar-type vertebrae. Counting reference: Lumbosacral junction. For the purposes of this report, L4-5 is considered the level of the iliac crest and there are 5 lumbar-type vertebrae. Anatomic variant: Transitional L5 vertebral body. Localizer images: Low signal intensity foci within the gallbladder likely cholelithiasis. Correlation with abdominal ultrasound recommended. T2 hyperintensity within the left pelvis measuring at least 4.4 cm possibly ovarian cyst. Correlation with pelvic ultrasound recommended. Alignment: Alignment is anatomic. Bone marrow signal/fracture: No evidence of pathologic marrow infiltration. No evidence of prior fracture. Minor disc narrowing and desiccation at L1-2 and L2-3 levels. Conus: The conus is within normal limits of signal intensity and morphology. Paraspinal soft tissues: Paraspinal soft tissues are within normal limits. Lower thoracic spine: Visualized lower thoracic canal and foramina are patent. T12-L1: Canal and foramina are patent. L1-L2: Minimal disc bulge. Minimal foraminal stenosis. L2-L3: Minimal disc bulge minimal left foraminal stenosis L3-L4: Minimal disc bulge. Minimal foraminal stenosis L4-L5: Minimal right paracentral disc protrusion makes near contact with the right L5 nerve root. Mild facet degeneration. No significant stenosis. L5-S1: Rudimentary disc without herniation or stenosis. Sacrum and iliac wings: The visualized sacrum and iliac wings are within normal limits. ASSESSMENT/PLAN 36 yo woman with PMH Factor V Leiden mutation, migraines, HPL with low back pain. Likely discogenic pain Very mild disk L4-5 bulge diffusely on personal MRI review Po nsaids PT with traction Talked about biomechanics, lifting. F/u with me prn if not improve. OTC motrin prn is okay unless need too frequently. This conversation was converted to telephone visit or virtual visit given covid 19 pandemic as encouraging patients to minimize contact that can increase risk of exposure. Patient understands above plan; questions asked and answered. Medication options, including side effects, were discussed in detail. Education was given regarding signs and symptoms that would indicate a serious change in condition, and they were instructed to seek care immediately should these arise. Patient agrees to plan as noted above. These notes are used for the purpose of medical documentation and that for use for other medical providers. Jargon expressed here is intentioned for use under this context. Danya Willis MD I spent a total of 25 minutes on the date of the service which included preparing to see the patient, completing clinical documentation, obtaining and/or reviewing separately obtained history and counseling and educating the patient/family/caregiver. 2nd note auto saved, not needed. Refer to above note documented in this encounter [facility] 08-09-2021 Miscellaneous Notes Talked to pt she was driving and going to call back to schedule. Koki King Please see if she can get in with [facility] for her lumbar herniated disc symptoms. Referral placed. Also new order for follow up US ovary, 6 weeks from previous imaging to recheck cyst Frantz Benson DO Patient reports she is currently doing PT with [facility], 1 more week. States she is not happy with her progress, and asking pcp place another PT order to continue, but write it for [facility]. Back pain. Asking pcp place order for the repeat US in 4-6 weeks to follow up on the cyst on her left ovary. Phone call placed patient advised (see prior encounter) Patient had concerns after review of result information, MyChart results sent, patient will call in to schedule consult after review. Jami Toscano LPN Please inform patient that her MRI lumbar shows IMPRESSION: L4-L5: Minimal right paracentral disc protrusion makes near contact with the right L5 nerve root. Additional minor spondylosis and stenosis as detailed. Suspected cholelithiasis and left ovarian cyst. Correlation with abdominal ultrasound and pelvic ultrasound recommended. She just recently had a pelvic US 2 weeks ago which didn't show a left ovarian cyst at that time so this is likely new. Would recommend consideration of pelvic US in 4-6 weeks to check for resolution or follow up with [facility] specialist. For her low back, she has a small protruding herniation of a disc on the right L5 nerve root causing impingement. Can consider seeing Pain mgmt for injection of this area or spinal surgeon for opinion. Usually injections are considered 1st and then surgeon if symptoms don't improve. Frantz Benson DO documented in this encounter [facility] 08-01-2021 Miscellaneous Notes Please assist in scheduling. MRI lumbar spine ordered, please help her schedule Frantz Benson DO Pt called back in reports that she went to PT again and back is not getting better, only getting worse. Pt reports she can't keep doing this with 3 kids, and they are going on vacation in a few weeks. Pt is requesting an MRI. States PT said they could do a better job if they knew what they were working with. Pt called in and reports she started PT this week and went twice and they said the exercises they were trying she wasn't able to do. The one said she could give her one exercise to do. She said PT said for her to call her provider, she reports they said she needs to get an MRI. Pt states, "I cannot sit, or drive, or take care of my kids.". She says everything she does is making the pain worse, and the medication the provider prescribed her isn't helping. Please call and advise. documented in this encounter [facility] 06-17-2021 Miscellaneous Notes Order for labs placed Frantz Benson DO Pt. states ionized Calcium was low also. Maureen Wright LPN Please clarify, I thought it was low potassium? See other TE. Is it also low calcium? If so, needs this rechecked as well next week Frantz Benson DO Patient calls and states that her ionized calcium was critically low in ER. Asking if this needs to be rechecked? If so please send order to [facility]. Please review and advise, Zakiya Jeffrey RN documented in this encounter [facility] 05-11-2021 Miscellaneous Notes Pt notified rx sent to correct pharmacy Please assist with scheduling appt with neurology Amanda Velasco Ma Referral please for neurologist, please inform patient. Also rx for prednisone sent to pharmacy Frantz Benson DO The following approved medication requests have been transmitted electronically. Signed Prescriptions Disp Refills predniSONE (DELTASONE) 20 mg tablet 20 tablet 1 Sig: Take 1 tablet by mouth once daily. As needed for migraine headache Authorizing Provider: FRANTZ BENSON DO Phone call placed, advised (see prior encounter) Patient requested a referral to see Neurology, requested Rx Prednisone sent to [facility] [place] Jami Toscano LPN Honestly, I am out of options for her to be able to take due to having to avoid ergot alkaloids and triptan medications. Didn't tolerate or get improvement with the Fioricet. I think we need to get her into neurologist for opinion. We can try dose of tramadol (pain medication) or prednisone if interested as last resort before seeing specialist. Please notify her. Frantz Benson DO Pt calling to check status and would like to know what she can take. Maybe call something else in for her. The caffeine pills did not do anything. Jennifer Toscano LPN Patient reports the fioricet did not help her migraine at all yesterday. She just kept vomiting and stayed in bed all day. No migraine today, but asking if there is another medication she could try. Reports due to her history of heart palpitations she is limited on what medications she can take. Please advise patient. documented in this encounter [facility] Evaluation + Plan note No data available for this section [facility] Evaluation note Diagnosis Lumbar discogenic pain syndrome Displacement of lumbar intervertebral disc without myelopathy [facility] Diagnosis Hypokalemia- Primary Hypopotassemia Hypocalcemia [facility] Diagnosis Lumbosacral radiculopathy at L5- Primary Thoracic or lumbosacral neuritis or radiculitis, unspecified Herniated intervertebral disc of lumbar spine Complex cyst of left ovary [facility]* Diagnosis Lumbosacral radiculopathy at L5- Primary Thoracic or lumbosacral neuritis or radiculitis, unspecified Herniated intervertebral disc of lumbar spine [facility] Diagnosis Lumbosacral radiculopathy at L5- Primary Thoracic or lumbosacral neuritis or radiculitis, unspecified Herniated intervertebral disc of lumbar spine [facility] Diagnosis Other migraine without status migrainosus, not intractable- Primary [facility]* Diagnosis Lumbosacral radiculopathy at L5- Primary Thoracic or lumbosacral neuritis or radiculitis, unspecified Herniated intervertebral disc of lumbar spine [facility]* Diagnosis Lumbosacral radiculopathy at L5- Primary Thoracic or lumbosacral neuritis or radiculitis, unspecified Herniated intervertebral disc of lumbar spine [facility]* Diagnosis Complex cyst of left ovary [facility]* Diagnosis Herniated intervertebral disc of lumbar spine- Primary [facility]* Diagnosis Lumbosacral radiculopathy at L5- Primary Thoracic or lumbosacral neuritis or radiculitis, unspecified [facility] Diagnosis Lumbosacral radiculopathy at L5- Primary Thoracic or lumbosacral neuritis or radiculitis, unspecified Herniated intervertebral disc of lumbar spine [facility]* Diagnosis Lumbosacral radiculopathy at L5- Primary Thoracic or lumbosacral neuritis or radiculitis, unspecified [facility]* Diagnosis Well adult exam- Primary Routine general medical examination at a health care facility Need for influenza vaccination Need for prophylactic vaccination and inoculation against influenza Pre-menstrual mood disorder Premenstrual tension syndromes Lumbosacral radiculopathy at L5 Thoracic or lumbosacral neuritis or radiculitis, unspecified Acute bilateral low back pain with bilateral sciatica [facility] Diagnosis 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- Primary Menstrual migraine, with intractable migraine, so stated, without mention of status migrainosus Migraine without aura and without status migrainosus, not intractable Migraine without aura, without mention of intractable migraine without mention of status migrainosus [facility] Diagnosis Lumbosacral radiculopathy at L5- Primary Thoracic or lumbosacral neuritis or radiculitis, unspecified [facility] Diagnosis Bacterial sinusitis- Primary Unspecified sinusitis (chronic) [facility] Diagnosis Urinary frequency- Primary [facility]* Diagnosis Paresthesia of right leg- Primary Disturbance of skin sensation Acute bilateral low back pain with bilateral sciatica [facility]* Diagnosis Acute otitis media, left- Primary Unspecified otitis media Acute bacterial conjunctivitis of left eye [facility]* Diagnosis Sore throat- Primary [facility] Headache, unspecified headache type- Primary Congestion of both ears Recurrent sinusitis Unspecified sinusitis (chronic) Penicillin allergy Personal history of allergy to penicillin [facility]* Diagnosis Viral URI- Primary Acute upper respiratory infections of unspecified site [facility]* Diagnosis Miscarriage- Primary Unspecified spontaneous without mention of complication [facility]* Diagnosis Well adult exam- Primary Routine general medical examination at a health care facility Miscarriage Unspecified spontaneous without mention of complication Other migraine without status migrainosus, not intractable [facility] Diagnosis Acute back pain, unspecified back location, unspecified back pain laterality- Primary [facility]* Diagnosis Irregular periods- Primary Irregular menstrual cycle Encounter for preconception consultation Other procreative management counseling and advice History of miscarriage Personal history of other genital system and obstetric disorders [facility]* Diagnosis Sore throat- Primary Acute pharyngitis Exposure to strep throat Contact with or exposure to other communicable diseases [facility]* Diagnosis examination or test, negative result- Primary Irregular periods Irregular menstrual cycle [facility]* Diagnosis Migraine without aura and without status migrainosus, not intractable- Primary Migraine without aura, without mention of intractable migraine without mention of status migrainosus 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 Menstrual migraine, with intractable migraine, so stated, without mention of status migrainosus [facility] Diagnosis Localized enlarged lymph nodes- Primary Enlargement of lymph nodes [facility]* Diagnosis Localized enlarged lymph nodes Enlargement of lymph nodes [facility]* Diagnosis Acute back pain, unspecified back location, unspecified back pain laterality [facility]* Diagnosis Encounter for fertility testing- Primary Fertility testing [facility]* Diagnosis Encounter for fertility planning [Z31.89]- Primary Other specified procreative management [facility]* Diagnosis Treatment plan provided- Primary [facility]* Diagnosis Well adult exam- Primary Routine general medical examination at a health care facility Other migraine without status migrainosus, not intractable Factor 5 Leiden mutation, heterozygous (HCC) Primary hypercoagulable state Class 1 obesity with body mass index (BMI) of 32.0 to 32.9 in adult, unspecified obesity type, unspecified whether serious comorbidity present Dental caries Unspecified dental caries [facility] Diagnosis Encounter for artificial insemination- Primary Artificial insemination [facility] Diagnosis Chest pain, unspecified type- Primary [facility]* Diagnosis [id number] adverse effect of medication, initial encounter- Primary [facility]* Diagnosis Encounter for fertility planning- Primary Other specified procreative management [facility]* Diagnosis Female infertility Female infertility of unspecified origin [facility]* Diagnosis Encounter for artificial insemination- Primary Artificial insemination [facility]* Diagnosis Treatment plan provided- Primary [facility]* Diagnosis Encounter for artificial insemination- Primary Artificial insemination [facility]* Diagnosis Encounter for fertility planning- Primary Other specified procreative management [facility]* Diagnosis 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 Female infertility of other specified origin documented in this encounter [facility] note* Diagnosis Female infertility- Primary Female infertility of unspecified origin [facility]* Diagnosis Migraine without aura and without status migrainosus, not intractable- Primary Migraine without aura, without mention of intractable migraine without mention of status migrainosus 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 Menstrual migraine, with intractable migraine, so stated, without mention of status migrainosus [facility]* Diagnosis Situational anxiety- Primary Other anxiety states documented in this encounter [facility] note* Diagnosis Screening for heavy metal poisoning- Primary Screening for chemical poisoning and other contamination documented in this encounter [facility] note* Diagnosis Situational anxiety- Primary Other anxiety states Acute reaction to situational stress documented in this encounter [facility] note* Diagnosis Acute reaction to situational stress- Primary Encounter for screening examination for other mental health and behavioral disorders Situational anxiety Other anxiety states [facility]* Diagnosis Migraine without aura and without status migrainosus, not intractable- Primary Migraine without aura, without mention of intractable migraine without mention of status migrainosus 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 Menstrual migraine, with intractable migraine, so stated, without mention of status migrainosus [facility]* Diagnosis Family history of carrier of genetic disease- Primary Family history of genetic disease carrier documented in this encounter [facility] note* Diagnosis Well adult exam- Primary Routine general medical examination at a health care facility Encounter for screening mammogram for malignant neoplasm of breast Other screening mammogram Class 1 obesity with body mass index (BMI) of 33.0 to 33.9 in adult, unspecified obesity type, unspecified whether serious comorbidity present documented in this encounter [facility] note* Diagnosis Family history of chromosomal microdeletion- Primary Family history of chromosomal microduplication Encounter of female for testing for genetic disease carrier status for procreative management Testing of female for genetic disease carrier status Family history of autism Family history of psychiatric condition [facility]* Diagnosis Fertility testing- Primary Routine screening for STI (sexually transmitted infection) Screening examination for venereal disease Encounter for preconception consultation Other procreative management counseling and advice [facility]* Diagnosis Family history of carrier of genetic disease- Primary Family history of genetic disease carrier [facility]* Diagnosis Genetic carrier of other disease [facility]* Diagnosis Class 1 obesity without serious comorbidity with body mass index (BMI) of 33.0 to 33.9 in adult, unspecified obesity type- Primary [facility]* Diagnosis Encounter for screening mammogram for malignant neoplasm of breast Other screening mammogram [facility]* Diagnosis Encounter for fertility testing- Primary Fertility testing [facility]* Diagnosis Female infertility Female infertility of unspecified origin [facility] Diagnosis Preoperative examination- Primary Preoperative examination, unspecified [facility]* Diagnosis Female infertility- Primary Female infertility of unspecified origin Female infertility- Primary Female infertility of unspecified origin [facility] Diagnosis Female infertility- Primary Female infertility of unspecified origin [facility] Diagnosis Female infertility- Primary Female infertility of unspecified origin Female infertility Female infertility of unspecified origin [facility]* Diagnosis Primary female infertility- Primary Female infertility of unspecified origin [facility] Diagnosis Primary female infertility- Primary Female infertility of unspecified origin [facility]* Diagnosis Encounter for fertility testing- Primary Fertility testing [facility]* Diagnosis Family history of carrier of genetic disease- Primary Family history of genetic disease carrier [facility]* Diagnosis Class 1 obesity with body mass index (BMI) of 32.0 to 32.9 in adult, unspecified obesity type, unspecified whether serious comorbidity present- Primary Chronic nonintractable headache, unspecified headache type Situational anxiety Other anxiety states [facility]* Diagnosis Encounter for fertility testing- Primary Fertility testing Pre-procedural laboratory examination documented in this encounter [facility] note* Diagnosis Pre-conception counseling- Primary Other procreative management counseling and advice documented in this encounter [facility] note* Diagnosis Female infertility- Primary Female infertility of unspecified origin documented in this encounter [facility] note* Diagnosis 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 Female infertility of unspecified origin documented in this encounter [facility] Work Phone: Hospital Discharge instructions No data available for this section [facility] Progress note No data available for this section [facility] Reason for referral (narrative)* Diagnostic Procedure Only (Routine) - Authorized Specialty Diagnoses / Procedures Referred By Yohannes larson Referred To Contact [facility] IMAGING Diagnoses Complex cyst of left ovary Procedures US FEMALE PELVIS TRANSVAG US TRANSVAGINAL Frantz Benson DO [address] [id number] Us Imaging Referral ID Status Reason Start Date Expiration Date Visits Requested Visits Authorized [id number] Authorized Auto-Generat ed Referral 08/08/2021 09/07/2022 1 1 * Diagnostic Procedure Only (Routine) - Authorized Specialty Diagnoses / Procedures Referred By Yohannes larson Referred To Contact [facility] Diagnoses Complex cyst of left ovary Procedures US FEMALE PELVIS TRANSABD LTD US PELVIC NONOBSTETRIC IMAGE DCMTN LIMITED/F/U Frantz Benson DO [address] [place] [address] Us Imaging Referral ID Status Reason Start Date Expiration Date Visits Requested Visits Authorized [id number] Authorized Auto-Generat ed Referral 08/08/2021 09/07/2022 1 1 * Physical Therapy (Routine) - Authorized Specialty Diagnoses / Procedures Referred By Contac t Referred To Contact PHYSICAL THERAPY Diagnoses Lumbosacral radiculopathy at L5 Herniated intervertebral disc of lumbar spine Procedures CONSULT TO PHYSICAL THERAPY PHYSICAL THERAPY EVALUATION HIGH COMPLEX 45 MINS Frantz Benson DO [address] [place] [address] Pt [facility] [address] [place] [id number] Referral ID Status Reason Start Date Expiration Date Visits Requested Visits Authorized [id number] Authorized Auto-Generat ed Referral 08/08/2021 05/20/2022 99 99 * Consult, Test, Treat (Routine) - Closed Specialty Diagnoses / Procedures Referred By Contac t Referred To Contact [facility] Diagnoses Lumbosacral radiculopathy at L5 Herniated intervertebral disc of lumbar spine Procedures CONSULT TO PAIN MGT OFFICE/OUTPATIENT [facility] MDM 60-74 MINUTES Frantz Benson DO [address] [place] [address] Anesthesia [place] [address] [place] [address] Referral ID Status Reason Start Date Expiration Date V isits Requested Visits Authorized [id number] Closed PCP Requested Referral 08/05/2021 08/05/2022 1 1 [facility] for referral (narrative)* Diagnostic Procedure Only (Routine) - Closed Specialty Diagnoses / Procedures Referred By Contac t Referred To Contact US IMAGING Diagnoses Complex cyst of left ovary Procedures US FEMALE PELVIS TRANSVAG US TRANSVAGINAL Frantz Benson DO [address] [place] [address] Us Imaging Referral ID Status Reason Start Date Expiration Date V isits Requested Visits Authorized [id number] Closed Auto-Generate d Referral 08/08/2021 09/07/2022 1 1 [facility] for referral (narrative)* Outpatient Procedure (Routine) - Authorized Specialty Diagnoses / Procedures Referred By Contac t Referred To Contact [facility] Diagnoses Chest pain, unspecified type Procedures ECG COMPLETE ECG ROUTINE ECG W/LEAST 12 LDS W/I&R Enmanuel Tatum MD [address] [place] [address] [address] Referral ID Status Reason Start Date Expiration Date Visits Requested Visits Authorized [id number] Authorized Auto-Generat ed Referral 07/31/2023 07/30/2024 1 1 [facility] for referral (narrative)* Diagnostic Procedure Only (Routine) - Authorized Specialty Diagnoses / Procedures Referred By Contac t Referred To Contact [facility] Diagnoses Female infertility Procedures FOLLICULAR US I US PELVIC NONOBSTETRIC IMAGE DCMTN LIMITED/F/U Sanna Raymundo APRN.CNM [address] [facility] [place] [address] [place] [address] Referral ID Status Reason Start Date Expiration Date Visits Requested Visits Authorized [id number] Authorized Auto-Generat ed Referral 10/18/2023 10/17/2024 1 1 [facility] for visit Narrative* Diagnostic Procedure Only (Routine) - Closed Specialty Diagnoses / Procedures Referred By Contac t Referred To Contact [facility] Diagnoses Complex cyst of left ovary Procedures US FEMALE PELVIS TRANSVAG US TRANSVAGINAL Frantz Benson, [address] [place] [address] Us Imaging Referral ID Status Reason Start Date Expiration Date V isits Requested Visits Authorized [id number] Closed Auto-Generate d Referral 08/08/2021 09/07/2022 1 1 [facility] for visit Narrative* Diagnostic Procedure Only (Routine) - Closed Specialty Diagnoses / Procedures Referred By Yohannes t Referred To Contact [facility] IM[facility] Diagnoses Localized enlarged lymph nodes Procedures US HEAD/NECK SOFT TISSUE OTHER US SOFT TISSUE HEAD & NECK REAL TIME IMGE DOCM Maliha Salas MD [address] [place] [address] [place] [id number] Referral ID Status Reason Start Date Expiration Date V isits Requested Visits Authorized [id number] Closed Auto-Generate d Referral 04/17/2023 05/16/2024 1 1 [facility] for visit Narrative* Consult, Test, Treat (Routine) - Closed Specialty Diagnoses / Procedures Referred By Yohannes larson Referred To Contact Diagnoses Family history of carrier of genetic disease Procedures CONSULT TO MEDICAL GENETICS - MEDICAL GENETICS COUNSELING EACH 30 MINUTES Eder Sykes MD [address] [place] [address] Phone: tel: fax: [facility] [address] [place] [address] Referral ID Status Reason Start Date Expiration Date V isits Requested Visits Authorized [id number] Closed PCP Requested Referral Auto-Generated Referral 08/15/2024 08/15/2025 1 1 [facility] for visit Narrative* Diagnostic Procedure Only (Routine) - Closed Specialty Diagnoses / Procedures Referred By Yohannes larson Referred To Contact [facility] Diagnoses Encounter for screening mammogram for malignant neoplasm of breast Procedures POPPY SCREENING W PATRIZIA SCREENING DIGITAL BREAST TOMOSYNTHESIS BI SCREENING MAMMOGRAPHY BI 2-VIEW BREAST INC Frantz Mccallum L, DO [address] [place] [address] Phone: tel: fax: [facility] [address] [place] [phone] Referral ID Status Reason Start Date Expiration Date V isits Requested Visits Authorized [id number] Closed Auto-Generate d Referral 09/03/2024 10/03/2025 1 1 [facility] for visit Narrative* Diagnostic Procedure Only (Routine) - Closed Specialty Diagnoses / Procedures Referred By Yohannes t Referred To Contact [facility] Diagnoses Female infertility Procedures FOLLICULAR US WHI US PELVIC NONOBSTETRIC IMAGE DCMTN LIMITED/F/U Eder Sykes MD [address] [place] [address] Phone: tel: fax: [facility] [address] [place] [address] Referral ID Status Reason Start Date Expiration Date V isits Requested Visits Authorized [id number] Closed Auto-Generate d Referral 10/29/2024 10/29/2025 6 1 [facility] for visit Narrative* Consult, Test, Treat (Routine) - Authorized Specialty Diagnoses / Procedures Referred By Yohannes alrson Referred To Contact [facility] Diagnoses Female infertility, unspecified Procedures IVF #[place] [address] [place] [address] [facility] [id number] [place] [address] Phone: tel: Referral ID Status Reason Start Date Expiration Date Visits Requested Visits Authorized [id number] Authorized Patient Cleared INN/SMCP Payor Auth Obtained Benefit Check 09/10/2024 01/10/2025 4 4 [facility] for visit Narrative* Consult, Test, Treat (Routine) - Closed Specialty Diagnoses / Procedures Referred By Yohannes larson Referred To Contact [facility] Diagnoses Female infertility, unspecified Procedures IVF #1 [place] [address] [place] [address] [facility] [address] [place] [address] Phone: tel: Referral ID Status Reason Start Date Expiration Date V isits Requested Visits Authorized [id number] Closed Patient Cleared INN/SMCP Payor Auth Obtained Benefit Check 09/10/2024 01/10/2025 4 4 [facility] Summary Purpose Family History No Family History Records FoundNo Family History Records FoundNo Family History Records Found No data available for this section No Family History Records FoundNo Family History Records FoundNo Family History Records FoundNo Family History Records FoundNo Family History Records FoundNo Family History Records FoundNo Family History Records FoundNo Family History Records Found Advance Directives No Advanced Directives Records FoundNo Advanced Directives Records FoundNo Advanced Directives Records FoundNo Advanced Directives Records FoundNo Advanced Directives Records FoundNo Advanced Directives Records FoundNo Advanced Directives Records FoundNo Advanced Directives Records FoundNo Advanced Directives Records FoundNo Advanced Directives Records FoundNo Advanced Directives Records Found Reason for Referral Specialty Diagnoses / Procedures Referred By Contac t Referred To Contact Neurology Diagnoses Other migraine without status migrainosus, not intractable Procedures CONSULT TO NEUROLOGY NEW PATIENT VISIT LEVEL 5 Franzt Benson, DO [address] [place] [address] Referral ID Status Reason Start Date Expiration Date V isits Requested Visits Authorized [id number] Closed PCP Requested Referral 05/11/2021 05/11/2022 1 1 Specialty Diagnoses / Procedures Referred By Contac t Referred To Contact [facility] Diagnoses Herniated intervertebral disc of lumbar spine Procedures CONSULT TO PHYSICAL THERAPY PHYSICAL THERAPY EVALUATION HIGH COMPLEX 45 MINS Frantz Benson, DO [address] [place] [address] [facility] [place] [address] [place] [address] Referral ID Status Reason Start Date Expiration Date V isits Requested Visits Authorized [id number] Closed Auto-Generate d Referral 12/12/2021 12/12/2022 1 1 Specialty Diagnoses / Procedures Referred By Contac t Referred To Contact [facility] Diagnoses Acute bilateral low back pain with bilateral sciatica Paresthesia of right leg Procedures MRI LUMBAR SPINE WO IVCON MRI SPINAL CANAL LUMBAR W/O CONTRAST MATERIAL Frantz Benson, DO [address] [place] [address] Mr Imaging Referral ID Status Reason Start Date Expiration Date V isits Requested Visits Authorized [id number] Closed Auto-Generate d Referral 08/01/2021 09/16/2021 1 1 Specialty Diagnoses / Procedures Referred By Contac t Referred To Contact Ent - Otolaryngology Diagnoses Headache, unspecified headache type Congestion of both ears Recurrent sinusitis Procedures CONSULT TO ENT OFFICE/OUTPATIENT [facility] MDM 60-74 MINUTES Anastasiya Erwin APRN.UTILITY WORKER [employer] [address] [place] [address] Referral ID Status Reason Start Date Expiration Date Visits Requested Visits Authorized [id number] Authorized PCP Requested Referral 07/19/2022 07/19/2023 1 1 Specialty Diagnoses / Procedures Referred By Contac t Referred To Contact [facility] Diagnoses Acute back pain, unspecified back location, unspecified back pain laterality Procedures CONSULT TO PHYSICAL THERAPY PHYSICAL THERAPY EVALUATION HIGH COMPLEX 45 MINS Mary Hamilton PA-C [address] [place] [address] 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 [address] [place] [address] Referral ID Status Reason Start Date Expiration Date Visits Requested Visits Authorized [id number] New Request Benefit Check 3 03/08/2024 3 1 Specialty Diagnoses / Procedures Referred By Contac t Referred To Contact Diagnoses Migraine without aura and without status migrainosus, not intractable Procedures PROVIDER ORDERED FOLLOW UP OFFICE/OUTPATIENT NEW HIGH MDM 60-[place] [address] [place] [address] Referral ID Status Reason Start Date Expiration Date Visits Requested Visits Authorized [id number] Authorized PCP Requested Referral 10/04/2023 04/04/2024 1 1 Specialty Diagnoses / Procedures Referred By Contac t Referred To Contact CT IMAGING Diagnoses Localized enlarged lymph nodes Procedures CT NECK SOFT TISSUE W IVCON CT SOFT TISSUE NECK W/CONTRAST MATERIAL Maliha Salas MD [address] [place] [address] [place] [id number] Referral ID Status Reason Start Date Expiration Date V isits Requested Visits Authorized [id number] Open Auto-Generate d Referral 04/06/2023 05/05/2024 1 1 Specialty Diagnoses / Procedures Referred By Contac t Referred To Contact Duncan Guadalupe ORTHODONTIST.UTILITY WORKER [employer] [address] [place] [address] Referral ID Status Reason Start Date Expiration Date V isits Requested Visits Authorized [id number] Authorized 08/06/2023 08/05/2024 1 1 Specialty Diagnoses / Procedures Referred By Contac t Referred To Contact Diagnoses Migraine without aura and without status migrainosus, not intractable 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 Procedures PROVIDER ORDERED FOLLOW UP OFFICE/OUTPATIENT [facility] 60 MINUTES Brianna Gaytan, SARAH.UTILITY WORKER [employer]ESSING [address] [place] [address] Referral ID Status Reason Start Date Expiration Date Visits Requested Visits Authorized [id number] Authorized PCP Requested Referral 04/25/2024 10/24/2024 1 1 Additional Source Comments INFORMATION SOURCE (unrecogn ized section and content) DATE CREATED AUTHOR 08/12/2021 [employer] Saskia ntaj D Lo DATE CREATED AUTHOR AUTHOR'S ORGANIZ ATION 05/31/2022 [facility] DATE CREATED AUTHOR AUTHOR'S ORGANIZ ATION 05/03/2023 [facility] ([place]) DATE CREATED AUTHOR AUTHOR'S ORGANIZ ATION 08/06/2024 [facility] DATE CREATED AUTHOR AUTHOR'S ORGANIZ ATION 11/27/2024 [facility] DATE CREATED AUTHOR AUTHOR'S ORGANIZ ATION 11/29/2024 [employer] [facility] DATE CREATED AUTHOR AUTHOR'S ORGANIZ ATION 12/08/2024 [facility] DATE CREATED AUTHOR AUTHOR'S ORGANIZ ATION 02/13/2025 [facility] DATE CREATED AUTHOR AUTHOR'S ORGANIZ ATION 02/21/2025 [facility] DATE CREATED AUTHOR AUTHOR'S ORGANIZ ATION 03/10/2025 [facility] DATE CREATED AUTHOR AUTHOR'S ORGANIZ ATION 03/11/2025 [facility] Source Comments (unrecognize d section and content) In the event this informatio n is protected by the Federal Confidentiality of Alcohol and Drug Abuse Patient Records regulations: The Federal rules restrict any use of the information to criminally investigate or prosecute any alcohol or drug abuse patient.[facility] the event this information is protected by the Federal Confidentiality of Alcohol and Drug Abuse Patient Records regulations: The Federal rules restrict any use of the information to criminally investigate or prosecute any alcohol or drug abuse patient.[facility] HospitalIn the event this information is protected by the Federal Confidentiality of Alcohol and Drug Abuse Patient Records regulations: The Federal rules restrict any use of the information to criminally investigate or prosecute any alcohol or drug abuse patient.[facility] HospitalIn the event this information is protected by the Federal Confidentiality of Alcohol and Drug Abuse Patient Records regulations: The Federal rules restrict any use of the information to criminally investigate or prosecute any alcohol or drug abuse patient.[facility] HospitalIn the event this information is protected by the Federal Confidentiality of Alcohol and Drug Abuse Patient Records regulations: The Federal rules restrict any use of the information to criminally investigate or prosecute any alcohol or drug abuse patient.[facility] HospitalIn the event this information is protected by the Federal Confidentiality of Alcohol and Drug Abuse Patient Records regulations: The Federal rules restrict any use of the information to criminally investigate or prosecute any alcohol or drug abuse patient.[facility] HospitalIn the event this information is protected by the Federal Confidentiality of Alcohol and Drug Abuse Patient Records regulations: The Federal rules restrict any use of the information to criminally investigate or prosecute any alcohol or drug abuse patient.[facility] HospitalIn the event this information is protected by the Federal Confidentiality of Alcohol and Drug Abuse Patient Records regulations: The Federal rules restrict any use of the information to criminally investigate or prosecute any alcohol or drug abuse patient.[facility] HospitalIn the event this information is protected by the Federal Confidentiality of Alcohol and Drug Abuse Patient Records regulations: The Federal rules restrict any use of the information to criminally investigate or prosecute any alcohol or drug abuse patient.[facility] HospitalIn the event this information is protected by the Federal Confidentiality of Alcohol and Drug Abuse Patient Records regulations: The Federal rules restrict any use of the information to criminally investigate or prosecute any alcohol or drug abuse patient.[facility] HospitalIn the event this information is protected by the Federal Confidentiality of Alcohol and Drug Abuse Patient Records regulations: The Federal rules restrict any use of the information to criminally investigate or prosecute any alcohol or drug abuse patient.[facility] HospitalIn the event this information is protected by the Federal Confidentiality of Alcohol and Drug Abuse Patient Records regulations: The Federal rules restrict any use of the information to criminally investigate or prosecute any alcohol or drug abuse patient.[facility] HospitalIn the event this information is protected by the Federal Confidentiality of Alcohol and Drug Abuse Patient Records regulations: The Federal rules restrict any use of the information to criminally investigate or prosecute any alcohol or drug abuse patient.[facility] HospitalIn the event this information is protected by the Federal Confidentiality of Alcohol and Drug Abuse Patient Records regulations: The Federal rules restrict any use of the information to criminally investigate or prosecute any alcohol or drug abuse patient.[facility] HospitalIn the event this information is protected by the Federal Confidentiality of Alcohol and Drug Abuse Patient Records regulations: The Federal rules restrict any use of the information to criminally investigate or prosecute any alcohol or drug abuse patient.[facility] HospitalIn the event this information is protected by the Federal Confidentiality of Alcohol and Drug Abuse Patient Records regulations: The Federal rules restrict any use of the information to criminally investigate or prosecute any alcohol or drug abuse patient.[facility] HospitalIn the event this information is protected by the Federal Confidentiality of Alcohol and Drug Abuse Patient Records regulations: The Federal rules restrict any use of the information to criminally investigate or prosecute any alcohol or drug abuse patient.[facility] HospitalIn the event this information is protected by the Federal Confidentiality of Alcohol and Drug Abuse Patient Records regulations: The Federal rules restrict any use of the information to criminally investigate or prosecute any alcohol or drug abuse patient.[facility] HospitalIn the event this information is protected by the Federal Confidentiality of Alcohol and Drug Abuse Patient Records regulations: The Federal rules restrict any use of the information to criminally investigate or prosecute any alcohol or drug abuse patient.[facility] HospitalIn the event this information is protected by the Federal Confidentiality of Alcohol and Drug Abuse Patient Records regulations: The Federal rules restrict any use of the information to criminally investigate or prosecute any alcohol or drug abuse patient.[facility] HospitalIn the event this information is protected by the Federal Confidentiality of Alcohol and Drug Abuse Patient Records regulations: The Federal rules restrict any use of the information to criminally investigate or prosecute any alcohol or drug abuse patient.[facility] HospitalIn the event this information is protected by the Federal Confidentiality of Alcohol and Drug Abuse Patient Records regulations: The Federal rules restrict any use of the information to criminally investigate or prosecute any alcohol or drug abuse patient.[facility] HospitalIn the event this information is protected by the Federal Confidentiality of Alcohol and Drug Abuse Patient Records regulations: The Federal rules restrict any use of the information to criminally investigate or prosecute any alcohol or drug abuse patient.[facility] HospitalIn the event this information is protected by the Federal Confidentiality of Alcohol and Drug Abuse Patient Records regulations: The Federal rules restrict any use of the information to criminally investigate or prosecute any alcohol or drug abuse patient.[facility] HospitalIn the event this information is protected by the Federal Confidentiality of Alcohol and Drug Abuse Patient Records regulations: The Federal rules restrict any use of the information to criminally investigate or prosecute any alcohol or drug abuse patient.[facility] HospitalIn the event this information is protected by the Federal Confidentiality of Alcohol and Drug Abuse Patient Records regulations: The Federal rules restrict any use of the information to criminally investigate or prosecute any alcohol or drug abuse patient.[facility] HospitalIn the event this information is protected by the Federal Confidentiality of Alcohol and Drug Abuse Patient Records regulations: The Federal rules restrict any use of the information to criminally investigate or prosecute any alcohol or drug abuse patient.[facility] HospitalIn the event this information is protected by the Federal Confidentiality of Alcohol and Drug Abuse Patient Records regulations: The Federal rules restrict any use of the information to criminally investigate or prosecute any alcohol or drug abuse patient.[facility] HospitalIn the event this information is protected by the Federal Confidentiality of Alcohol and Drug Abuse Patient Records regulations: The Federal rules restrict any use of the information to criminally investigate or prosecute any alcohol or drug abuse patient.[facility] HospitalIn the event this information is protected by the Federal Confidentiality of Alcohol and Drug Abuse Patient Records regulations: The Federal rules restrict any use of the information to criminally investigate or prosecute any alcohol or drug abuse patient.[facility] HospitalIn the event this information is protected by the Federal Confidentiality of Alcohol and Drug Abuse Patient Records regulations: The Federal rules restrict any use of the information to criminally investigate or prosecute any alcohol or drug abuse patient.[facility] HospitalIn the event this information is protected by the Federal Confidentiality of Alcohol and Drug Abuse Patient Records regulations: The Federal rules restrict any use of the information to criminally investigate or prosecute any alcohol or drug abuse patient.[facility] HospitalIn the event this information is protected by the Federal Confidentiality of Alcohol and Drug Abuse Patient Records regulations: The Federal rules restrict any use of the information to criminally investigate or prosecute any alcohol or drug abuse patient.[facility] HospitalIn the event this information is protected by the Federal Confidentiality of Alcohol and Drug Abuse Patient Records regulations: The Federal rules restrict any use of the information to criminally investigate or prosecute any alcohol or drug abuse patient.[facility] HospitalIn the event this information is protected by the Federal Confidentiality of Alcohol and Drug Abuse Patient Records regulations: The Federal rules restrict any use of the information to criminally investigate or prosecute any alcohol or drug abuse patient.[facility] HospitalIn the event this information is protected by the Federal Confidentiality of Alcohol and Drug Abuse Patient Records regulations: The Federal rules restrict any use of the information to criminally investigate or prosecute any alcohol or drug abuse patient.[facility] HospitalIn the event this information is protected by the Federal Confidentiality of Alcohol and Drug Abuse Patient Records regulations: The Federal rules restrict any use of the information to criminally investigate or prosecute any alcohol or drug abuse patient.[facility] HospitalIn the event this information is protected by the Federal Confidentiality of Alcohol and Drug Abuse Patient Records regulations: The Federal rules restrict any use of the information to criminally investigate or prosecute any alcohol or drug abuse patient.[facility] HospitalIn the event this information is protected by the Federal Confidentiality of Alcohol and Drug Abuse Patient Records regulations: The Federal rules restrict any use of the information to criminally investigate or prosecute any alcohol or drug abuse patient.[facility] HospitalIn the event this information is protected by the Federal Confidentiality of Alcohol and Drug Abuse Patient Records regulations: The Federal rules restrict any use of the information to criminally investigate or prosecute any alcohol or drug abuse patient.[facility] HospitalIn the event this information is protected by the Federal Confidentiality of Alcohol and Drug Abuse Patient Records regulations: The Federal rules restrict any use of the information to criminally investigate or prosecute any alcohol or drug abuse patient.[facility] HospitalIn the event this information is protected by the Federal Confidentiality of Alcohol and Drug Abuse Patient Records regulations: The Federal rules restrict any use of the information to criminally investigate or prosecute any alcohol or drug abuse patient.[facility] HospitalIn the event this information is protected by the Federal Confidentiality of Alcohol and Drug Abuse Patient Records regulations: The Federal rules restrict any use of the information to criminally investigate or prosecute any alcohol or drug abuse patient.[facility] HospitalIn the event this information is protected by the Federal Confidentiality of Alcohol and Drug Abuse Patient Records regulations: The Federal rules restrict any use of the information to criminally investigate or prosecute any alcohol or drug abuse patient.[facility] HospitalIn the event this information is protected by the Federal Confidentiality of Alcohol and Drug Abuse Patient Records regulations: The Federal rules restrict any use of the information to criminally investigate or prosecute any alcohol or drug abuse patient.[facility] HospitalIn the event this information is protected by the Federal Confidentiality of Alcohol and Drug Abuse Patient Records regulations: The Federal rules restrict any use of the information to criminally investigate or prosecute any alcohol or drug abuse patient.[facility] HospitalIn the event this information is protected by the Federal Confidentiality of Alcohol and Drug Abuse Patient Records regulations: The Federal rules restrict any use of the information to criminally investigate or prosecute any alcohol or drug abuse patient.[facility] HospitalIn the event this information is protected by the Federal Confidentiality of Alcohol and Drug Abuse Patient Records regulations: The Federal rules restrict any use of the information to criminally investigate or prosecute any alcohol or drug abuse patient.[facility] HospitalIn the event this information is protected by the Federal Confidentiality of Alcohol and Drug Abuse Patient Records regulations: The Federal rules restrict any use of the information to criminally investigate or prosecute any alcohol or drug abuse patient.[facility] HospitalIn the event this information is protected by the Federal Confidentiality of Alcohol and Drug Abuse Patient Records regulations: The Federal rules restrict any use of the information to criminally investigate or prosecute any alcohol or drug abuse patient.[facility] HospitalIn the event this information is protected by the Federal Confidentiality of Alcohol and Drug Abuse Patient Records regulations: The Federal rules restrict any use of the information to criminally investigate or prosecute any alcohol or drug abuse patient.[facility] HospitalIn the event this information is protected by the Federal Confidentiality of Alcohol and Drug Abuse Patient Records regulations: The Federal rules restrict any use of the information to criminally investigate or prosecute any alcohol or drug abuse patient.[facility] HospitalIn the event this information is protected by the Federal Confidentiality of Alcohol and Drug Abuse Patient Records regulations: The Federal rules restrict any use of the information to criminally investigate or prosecute any alcohol or drug abuse patient.[facility] HospitalIn the event this information is protected by the Federal Confidentiality of Alcohol and Drug Abuse Patient Records regulations: The Federal rules restrict any use of the information to criminally investigate or prosecute any alcohol or drug abuse patient.[facility] HospitalIn the event this information is protected by the Federal Confidentiality of Alcohol and Drug Abuse Patient Records regulations: The Federal rules restrict any use of the information to criminally investigate or prosecute any alcohol or drug abuse patient.[facility] HospitalIn the event this information is protected by the Federal Confidentiality of Alcohol and Drug Abuse Patient Records regulations: The Federal rules restrict any use of the information to criminally investigate or prosecute any alcohol or drug abuse patient.[facility] HospitalIn the event this information is protected by the Federal Confidentiality of Alcohol and Drug Abuse Patient Records regulations: The Federal rules restrict any use of the information to criminally investigate or prosecute any alcohol or drug abuse patient.[facility] HospitalIn the event this information is protected by the Federal Confidentiality of Alcohol and Drug Abuse Patient Records regulations: The Federal rules restrict any use of the information to criminally investigate or prosecute any alcohol or drug abuse patient.[facility] HospitalIn the event this information is protected by the Federal Confidentiality of Alcohol and Drug Abuse Patient Records regulations: The Federal rules restrict any use of the information to criminally investigate or prosecute any alcohol or drug abuse patient.[facility] HospitalIn the event this information is protected by the Federal Confidentiality of Alcohol and Drug Abuse Patient Records regulations: The Federal rules restrict any use of the information to criminally investigate or prosecute any alcohol or drug abuse patient.[facility] HospitalIn the event this information is protected by the Federal Confidentiality of Alcohol and Drug Abuse Patient Records regulations: The Federal rules restrict any use of the information to criminally investigate or prosecute any alcohol or drug abuse patient.[facility] HospitalIn the event this information is protected by the Federal Confidentiality of Alcohol and Drug Abuse Patient Records regulations: The Federal rules restrict any use of the information to criminally investigate or prosecute any alcohol or drug abuse patient.[facility] HospitalIn the event this information is protected by the Federal Confidentiality of Alcohol and Drug Abuse Patient Records regulations: The Federal rules restrict any use of the information to criminally investigate or prosecute any alcohol or drug abuse patient.[facility] HospitalIn the event this information is protected by the Federal Confidentiality of Alcohol and Drug Abuse Patient Records regulations: The Federal rules restrict any use of the information to criminally investigate or prosecute any alcohol or drug abuse patient.[facility] HospitalIn the event this information is protected by the Federal Confidentiality of Alcohol and Drug Abuse Patient Records regulations: The Federal rules restrict any use of the information to criminally investigate or prosecute any alcohol or drug abuse patient.[facility] HospitalIn the event this information is protected by the Federal Confidentiality of Alcohol and Drug Abuse Patient Records regulations: The Federal rules restrict any use of the information to criminally investigate or prosecute any alcohol or drug abuse patient.[facility] HospitalIn the event this information is protected by the Federal Confidentiality of Alcohol and Drug Abuse Patient Records regulations: The Federal rules restrict any use of the information to criminally investigate or prosecute any alcohol or drug abuse patient.[facility] HospitalIn the event this information is protected by the Federal Confidentiality of Alcohol and Drug Abuse Patient Records regulations: The Federal rules restrict any use of the information to criminally investigate or prosecute any alcohol or drug abuse patient.[facility] HospitalIn the event this information is protected by the Federal Confidentiality of Alcohol and Drug Abuse Patient Records regulations: The Federal rules restrict any use of the information to criminally investigate or prosecute any alcohol or drug abuse patient.[facility] HospitalIn the event this information is protected by the Federal Confidentiality of Alcohol and Drug Abuse Patient Records regulations: The Federal rules restrict any use of the information to criminally investigate or prosecute any alcohol or drug abuse patient.[facility] HospitalIn the event this information is protected by the Federal Confidentiality of Alcohol and Drug Abuse Patient Records regulations: The Federal rules restrict any use of the information to criminally investigate or prosecute any alcohol or drug abuse patient.[facility] HospitalIn the event this information is protected by the Federal Confidentiality of Alcohol and Drug Abuse Patient Records regulations: The Federal rules restrict any use of the information to criminally investigate or prosecute any alcohol or drug abuse patient.[facility] HospitalIn the event this information is protected by the Federal Confidentiality of Alcohol and Drug Abuse Patient Records regulations: The Federal rules restrict any use of the information to criminally investigate or prosecute any alcohol or drug abuse patient.[facility] HospitalIn the event this information is protected by the Federal Confidentiality of Alcohol and Drug Abuse Patient Records regulations: The Federal rules restrict any use of the information to criminally investigate or prosecute any alcohol or drug abuse patient.[facility] HospitalIn the event this information is protected by the Federal Confidentiality of Alcohol and Drug Abuse Patient Records regulations: The Federal rules restrict any use of the information to criminally investigate or prosecute any alcohol or drug abuse patient.[facility] HospitalIn the event this information is protected by the Federal Confidentiality of Alcohol and Drug Abuse Patient Records regulations: The Federal rules restrict any use of the information to criminally investigate or prosecute any alcohol or drug abuse patient.[facility] HospitalIn the event this information is protected by the Federal Confidentiality of Alcohol and Drug Abuse Patient Records regulations: The Federal rules restrict any use of the information to criminally investigate or prosecute any alcohol or drug abuse patient.[facility] HospitalIn the event this information is protected by the Federal Confidentiality of Alcohol and Drug Abuse Patient Records regulations: The Federal rules restrict any use of the information to criminally investigate or prosecute any alcohol or drug abuse patient.[facility] HospitalIn the event this information is protected by the Federal Confidentiality of Alcohol and Drug Abuse Patient Records regulations: The Federal rules restrict any use of the information to criminally investigate or prosecute any alcohol or drug abuse patient.[facility] HospitalIn the event this information is protected by the Federal Confidentiality of Alcohol and Drug Abuse Patient Records regulations: The Federal rules restrict any use of the information to criminally investigate or prosecute any alcohol or drug abuse patient.[facility] HospitalIn the event this information is protected by the Federal Confidentiality of Alcohol and Drug Abuse Patient Records regulations: The Federal rules restrict any use of the information to criminally investigate or prosecute any alcohol or drug abuse patient.[facility] HospitalIn the event this information is protected by the Federal Confidentiality of Alcohol and Drug Abuse Patient Records regulations: The Federal rules restrict any use of the information to criminally investigate or prosecute any alcohol or drug abuse patient.[facility] HospitalIn the event this information is protected by the Federal Confidentiality of Alcohol and Drug Abuse Patient Records regulations: The Federal rules restrict any use of the information to criminally investigate or prosecute any alcohol or drug abuse patient.[facility] HospitalIn the event this information is protected by the Federal Confidentiality of Alcohol and Drug Abuse Patient Records regulations: The Federal rules restrict any use of the information to criminally investigate or prosecute any alcohol or drug abuse patient.[facility] HospitalIn the event this information is protected by the Federal Confidentiality of Alcohol and Drug Abuse Patient Records regulations: The Federal rules restrict any use of the information to criminally investigate or prosecute any alcohol or drug abuse patient.[facility] HospitalIn the event this information is protected by the Federal Confidentiality of Alcohol and Drug Abuse Patient Records regulations: The Federal rules restrict any use of the information to criminally investigate or prosecute any alcohol or drug abuse patient.[facility] HospitalIn the event this information is protected by the Federal Confidentiality of Alcohol and Drug Abuse Patient Records regulations: The Federal rules restrict any use of the information to criminally investigate or prosecute any alcohol or drug abuse patient.[facility] HospitalIn the event this information is protected by the Federal Confidentiality of Alcohol and Drug Abuse Patient Records regulations: The Federal rules restrict any use of the information to criminally investigate or prosecute any alcohol or drug abuse patient.[facility] HospitalIn the event this information is protected by the Federal Confidentiality of Alcohol and Drug Abuse Patient Records regulations: The Federal rules restrict any use of the information to criminally investigate or prosecute any alcohol or drug abuse patient.[facility] HospitalIn the event this information is protected by the Federal Confidentiality of Alcohol and Drug Abuse Patient Records regulations: The Federal rules restrict any use of the information to criminally investigate or prosecute any alcohol or drug abuse patient.[facility] HospitalIn the event this information is protected by the Federal Confidentiality of Alcohol and Drug Abuse Patient Records regulations: The Federal rules restrict any use of the information to criminally investigate or prosecute any alcohol or drug abuse patient.[facility] HospitalIn the event this information is protected by the Federal Confidentiality of Alcohol and Drug Abuse Patient Records regulations: The Federal rules restrict any use of the information to criminally investigate or prosecute any alcohol or drug abuse patient.[facility] HospitalIn the event this information is protected by the Federal Confidentiality of Alcohol and Drug Abuse Patient Records regulations: The Federal rules restrict any use of the information to criminally investigate or prosecute any alcohol or drug abuse patient.[facility] HospitalIn the event this information is protected by the Federal Confidentiality of Alcohol and Drug Abuse Patient Records regulations: The Federal rules restrict any use of the information to criminally investigate or prosecute any alcohol or drug abuse patient.[facility] HospitalIn the event this information is protected by the Federal Confidentiality of Alcohol and Drug Abuse Patient Records regulations: The Federal rules restrict any use of the information to criminally investigate or prosecute any alcohol or drug abuse patient.[facility] HospitalIn the event this information is protected by the Federal Confidentiality of Alcohol and Drug Abuse Patient Records regulations: The Federal rules restrict any use of the information to criminally investigate or prosecute any alcohol or drug abuse patient.[facility] HospitalIn the event this information is protected by the Federal Confidentiality of Alcohol and Drug Abuse Patient Records regulations: The Federal rules restrict any use of the information to criminally investigate or prosecute any alcohol or drug abuse patient.[facility] HospitalIn the event this information is protected by the Federal Confidentiality of Alcohol and Drug Abuse Patient Records regulations: The Federal rules restrict any use of the information to criminally investigate or prosecute any alcohol or drug abuse patient.[facility] HospitalIn the event this information is protected by the Federal Confidentiality of Alcohol and Drug Abuse Patient Records regulations: The Federal rules restrict any use of the information to criminally investigate or prosecute any alcohol or drug abuse patient.[facility] HospitalIn the event this information is protected by the Federal Confidentiality of Alcohol and Drug Abuse Patient Records regulations: The Federal rules restrict any use of the information to criminally investigate or prosecute any alcohol or drug abuse patient.[facility] HospitalIn the event this information is protected by the Federal Confidentiality of Alcohol and Drug Abuse Patient Records regulations: The Federal rules restrict any use of the information to criminally investigate or prosecute any alcohol or drug abuse patient.[facility] HospitalIn the event this information is protected by the Federal Confidentiality of Alcohol and Drug Abuse Patient Records regulations: The Federal rules restrict any use of the information to criminally investigate or prosecute any alcohol or drug abuse patient.[facility] HospitalIn the event this information is protected by the Federal Confidentiality of Alcohol and Drug Abuse Patient Records regulations: The Federal rules restrict any use of the information to criminally investigate or prosecute any alcohol or drug abuse patient.[facility] HospitalIn the event this information is protected by the Federal Confidentiality of Alcohol and Drug Abuse Patient Records regulations: The Federal rules restrict any use of the information to criminally investigate or prosecute any alcohol or drug abuse patient.[facility] HospitalIn the event this information is protected by the Federal Confidentiality of Alcohol and Drug Abuse Patient Records regulations: The Federal rules restrict any use of the information to criminally investigate or prosecute any alcohol or drug abuse patient.[facility] HospitalIn the event this information is protected by the Federal Confidentiality of Alcohol and Drug Abuse Patient Records regulations: The Federal rules restrict any use of the information to criminally investigate or prosecute any alcohol or drug abuse patient.[facility] HospitalIn the event this information is protected by the Federal Confidentiality of Alcohol and Drug Abuse Patient Records regulations: The Federal rules restrict any use of the information to criminally investigate or prosecute any alcohol or drug abuse patient.[facility] HospitalIn the event this information is protected by the Federal Confidentiality of Alcohol and Drug Abuse Patient Records regulations: The Federal rules restrict any use of the information to criminally investigate or prosecute any alcohol or drug abuse patient.[facility] HospitalIn the event this information is protected by the Federal Confidentiality of Alcohol and Drug Abuse Patient Records regulations: The Federal rules restrict any use of the information to criminally investigate or prosecute any alcohol or drug abuse patient.[facility] HospitalIn the event this information is protected by the Federal Confidentiality of Alcohol and Drug Abuse Patient Records regulations: The Federal rules restrict any use of the information to criminally investigate or prosecute any alcohol or drug abuse patient.[facility] HospitalIn the event this information is protected by the Federal Confidentiality of Alcohol and Drug Abuse Patient Records regulations: The Federal rules restrict any use of the information to criminally investigate or prosecute any alcohol or drug abuse patient.[facility] HospitalIn the event this information is protected by the Federal Confidentiality of Alcohol and Drug Abuse Patient Records regulations: The Federal rules restrict any use of the information to criminally investigate or prosecute any alcohol or drug abuse patient.[facility] HospitalIn the event this information is protected by the Federal Confidentiality of Alcohol and Drug Abuse Patient Records regulations: The Federal rules restrict any use of the information to criminally investigate or prosecute any alcohol or drug abuse patient.[facility] HospitalIn the event this information is protected by the Federal Confidentiality of Alcohol and Drug Abuse Patient Records regulations: The Federal rules restrict any use of the information to criminally investigate or prosecute any alcohol or drug abuse patient.[facility] HospitalIn the event this information is protected by the Federal Confidentiality of Alcohol and Drug Abuse Patient Records regulations: The Federal rules restrict any use of the information to criminally investigate or prosecute any alcohol or drug abuse patient.[facility] HospitalIn the event this information is protected by the Federal Confidentiality of Alcohol and Drug Abuse Patient Records regulations: The Federal rules restrict any use of the information to criminally investigate or prosecute any alcohol or drug abuse patient.[facility] HospitalIn the event this information is protected by the Federal Confidentiality of Alcohol and Drug Abuse Patient Records regulations: The Federal rules restrict any use of the information to criminally investigate or prosecute any alcohol or drug abuse patient.[facility] HospitalIn the event this information is protected by the Federal Confidentiality of Alcohol and Drug Abuse Patient Records regulations: The Federal rules restrict any use of the information to criminally investigate or prosecute any alcohol or drug abuse patient.[facility] HospitalIn the event this information is protected by the Federal Confidentiality of Alcohol and Drug Abuse Patient Records regulations: The Federal rules restrict any use of the information to criminally investigate or prosecute any alcohol or drug abuse patient.[facility] HospitalIn the event this information is protected by the Federal Confidentiality of Alcohol and Drug Abuse Patient Records regulations: The Federal rules restrict any use of the information to criminally investigate or prosecute any alcohol or drug abuse patient.[facility] HospitalIn the event this information is protected by the Federal Confidentiality of Alcohol and Drug Abuse Patient Records regulations: The Federal rules restrict any use of the information to criminally investigate or prosecute any alcohol or drug abuse patient.[facility] HospitalIn the event this information is protected by the Federal Confidentiality of Alcohol and Drug Abuse Patient Records regulations: The Federal rules restrict any use of the information to criminally investigate or prosecute any alcohol or drug abuse patient.[facility] HospitalIn the event this information is protected by the Federal Confidentiality of Alcohol and Drug Abuse Patient Records regulations: The Federal rules restrict any use of the information to criminally investigate or prosecute any alcohol or drug abuse patient.[facility] HospitalIn the event this information is protected by the Federal Confidentiality of Alcohol and Drug Abuse Patient Records regulations: The Federal rules restrict any use of the information to criminally investigate or prosecute any alcohol or drug abuse patient.[facility] HospitalIn the event this information is protected by the Federal Confidentiality of Alcohol and Drug Abuse Patient Records regulations: The Federal rules restrict any use of the information to criminally investigate or prosecute any alcohol or drug abuse patient.[facility] HospitalIn the event this information is protected by the Federal Confidentiality of Alcohol and Drug Abuse Patient Records regulations: The Federal rules restrict any use of the information to criminally investigate or prosecute any alcohol or drug abuse patient.[facility] HospitalIn the event this information is protected by the Federal Confidentiality of Alcohol and Drug Abuse Patient Records regulations: The Federal rules restrict any use of the information to criminally investigate or prosecute any alcohol or drug abuse patient.[facility] HospitalIn the event this information is protected by the Federal Confidentiality of Alcohol and Drug Abuse Patient Records regulations: The Federal rules restrict any use of the information to criminally investigate or prosecute any alcohol or drug abuse patient.[facility] HospitalIn the event this information is protected by the Federal Confidentiality of Alcohol and Drug Abuse Patient Records regulations: The Federal rules restrict any use of the information to criminally investigate or prosecute any alcohol or drug abuse patient.[facility] HospitalIn the event this information is protected by the Federal Confidentiality of Alcohol and Drug Abuse Patient Records regulations: The Federal rules restrict any use of the information to criminally investigate or prosecute any alcohol or drug abuse patient.[facility] HospitalIn the event this information is protected by the Federal Confidentiality of Alcohol and Drug Abuse Patient Records regulations: The Federal rules restrict any use of the information to criminally investigate or prosecute any alcohol or drug abuse patient.[facility] HospitalIn the event this information is protected by the Federal Confidentiality of Alcohol and Drug Abuse Patient Records regulations: The Federal rules restrict any use of the information to criminally investigate or prosecute any alcohol or drug abuse patient.[facility] HospitalIn the event this information is protected by the Federal Confidentiality of Alcohol and Drug Abuse Patient Records regulations: The Federal rules restrict any use of the information to criminally investigate or prosecute any alcohol or drug abuse patient.[facility] HospitalIn the event this information is protected by the Federal Confidentiality of Alcohol and Drug Abuse Patient Records regulations: The Federal rules restrict any use of the information to criminally investigate or prosecute any alcohol or drug abuse patient.[facility] HospitalIn the event this information is protected by the Federal Confidentiality of Alcohol and Drug Abuse Patient Records regulations: The Federal rules restrict any use of the information to criminally investigate or prosecute any alcohol or drug abuse patient.[facility] HospitalIn the event this information is protected by the Federal Confidentiality of Alcohol and Drug Abuse Patient Records regulations: The Federal rules restrict any use of the information to criminally investigate or prosecute any alcohol or drug abuse patient.[facility] HospitalIn the event this information is protected by the Federal Confidentiality of Alcohol and Drug Abuse Patient Records regulations: The Federal rules restrict any use of the information to criminally investigate or prosecute any alcohol or drug abuse patient.[facility] HospitalIn the event this information is protected by the Federal Confidentiality of Alcohol and Drug Abuse Patient Records regulations: The Federal rules restrict any use of the information to criminally investigate or prosecute any alcohol or drug abuse patient.[facility] HospitalIn the event this information is protected by the Federal Confidentiality of Alcohol and Drug Abuse Patient Records regulations: The Federal rules restrict any use of the information to criminally investigate or prosecute any alcohol or drug abuse patient.[facility] HospitalIn the event this information is protected by the Federal Confidentiality of Alcohol and Drug Abuse Patient Records regulations: The Federal rules restrict any use of the information to criminally investigate or prosecute any alcohol or drug abuse patient.[facility] HospitalIn the event this information is protected by the Federal Confidentiality of Alcohol and Drug Abuse Patient Records regulations: The Federal rules restrict any use of the information to criminally investigate or prosecute any alcohol or drug abuse patient.[facility] HospitalIn the event this information is protected by the Federal Confidentiality of Alcohol and Drug Abuse Patient Records regulations: The Federal rules restrict any use of the information to criminally investigate or prosecute any alcohol or drug abuse patient.[facility] HospitalIn the event this information is protected by the Federal Confidentiality of Alcohol and Drug Abuse Patient Records regulations: The Federal rules restrict any use of the information to criminally investigate or prosecute any alcohol or drug abuse patient.[facility] HospitalIn the event this information is protected by the Federal Confidentiality of Alcohol and Drug Abuse Patient Records regulations: The Federal rules restrict any use of the information to criminally investigate or prosecute any alcohol or drug abuse patient.[facility] HospitalIn the event this information is protected by the Federal Confidentiality of Alcohol and Drug Abuse Patient Records regulations: The Federal rules restrict any use of the information to criminally investigate or prosecute any alcohol or drug abuse patient.[facility] HospitalIn the event this information is protected by the Federal Confidentiality of Alcohol and Drug Abuse Patient Records regulations: The Federal rules restrict any use of the information to criminally investigate or prosecute any alcohol or drug abuse patient.[facility] HospitalIn the event this information is protected by the Federal Confidentiality of Alcohol and Drug Abuse Patient Records regulations: The Federal rules restrict any use of the information to criminally investigate or prosecute any alcohol or drug abuse patient.[facility] HospitalIn the event this information is protected by the Federal Confidentiality of Alcohol and Drug Abuse Patient Records regulations: The Federal rules restrict any use of the information to criminally investigate or prosecute any alcohol or drug abuse patient.[facility] HospitalIn the event this information is protected by the Federal Confidentiality of Alcohol and Drug Abuse Patient Records regulations: The Federal rules restrict any use of the information to criminally investigate or prosecute any alcohol or drug abuse patient.[facility] HospitalIn the event this information is protected by the Federal Confidentiality of Alcohol and Drug Abuse Patient Records regulations: The Federal rules restrict any use of the information to criminally investigate or prosecute any alcohol or drug abuse patient.[facility] HospitalIn the event this information is protected by the Federal Confidentiality of Alcohol and Drug Abuse Patient Records regulations: The Federal rules restrict any use of the information to criminally investigate or prosecute any alcohol or drug abuse patient.[facility] HospitalIn the event this information is protected by the Federal Confidentiality of Alcohol and Drug Abuse Patient Records regulations: The Federal rules restrict any use of the information to criminally investigate or prosecute any alcohol or drug abuse patient.[facility] HospitalIn the event this information is protected by the Federal Confidentiality of Alcohol and Drug Abuse Patient Records regulations: The Federal rules restrict any use of the information to criminally investigate or prosecute any alcohol or drug abuse patient.[facility] HospitalIn the event this information is protected by the Federal Confidentiality of Alcohol and Drug Abuse Patient Records regulations: The Federal rules restrict any use of the information to criminally investigate or prosecute any alcohol or drug abuse patient.[facility] HospitalIn the event this information is protected by the Federal Confidentiality of Alcohol and Drug Abuse Patient Records regulations: The Federal rules restrict any use of the information to criminally investigate or prosecute any alcohol or drug abuse patient.[facility] HospitalIn the event this information is protected by the Federal Confidentiality of Alcohol and Drug Abuse Patient Records regulations: The Federal rules restrict any use of the information to criminally investigate or prosecute any alcohol or drug abuse patient.[facility] HospitalIn the event this information is protected by the Federal Confidentiality of Alcohol and Drug Abuse Patient Records regulations: The Federal rules restrict any use of the information to criminally investigate or prosecute any alcohol or drug abuse patient.[facility] HospitalIn the event this information is protected by the Federal Confidentiality of Alcohol and Drug Abuse Patient Records regulations: The Federal rules restrict any use of the information to criminally investigate or prosecute any alcohol or drug abuse patient.[facility] HospitalIn the event this information is protected by the Federal Confidentiality of Alcohol and Drug Abuse Patient Records regulations: The Federal rules restrict any use of the information to criminally investigate or prosecute any alcohol or drug abuse patient.[facility] HospitalIn the event this information is protected by the Federal Confidentiality of Alcohol and Drug Abuse Patient Records regulations: The Federal rules restrict any use of the information to criminally investigate or prosecute any alcohol or drug abuse patient.[facility] HospitalIn the event this information is protected by the Federal Confidentiality of Alcohol and Drug Abuse Patient Records regulations: The Federal rules restrict any use of the information to criminally investigate or prosecute any alcohol or drug abuse patient.[facility] HospitalIn the event this information is protected by the Federal Confidentiality of Alcohol and Drug Abuse Patient Records regulations: The Federal rules restrict any use of the information to criminally investigate or prosecute any alcohol or drug abuse patient.[facility] HospitalIn the event this information is protected by the Federal Confidentiality of Alcohol and Drug Abuse Patient Records regulations: The Federal rules restrict any use of the information to criminally investigate or prosecute any alcohol or drug abuse patient.[facility] HospitalIn the event this information is protected by the Federal Confidentiality of Alcohol and Drug Abuse Patient Records regulations: The Federal rules restrict any use of the information to criminally investigate or prosecute any alcohol or drug abuse patient.[facility] HospitalIn the event this information is protected by the Federal Confidentiality of Alcohol and Drug Abuse Patient Records regulations: The Federal rules restrict any use of the information to criminally investigate or prosecute any alcohol or drug abuse patient.[facility] HospitalIn the event this information is protected by the Federal Confidentiality of Alcohol and Drug Abuse Patient Records regulations: The Federal rules restrict any use of the information to criminally investigate or prosecute any alcohol or drug abuse patient.[facility] Reason for Visit (unrecogniz ed section and content) Reason Comments Infertility Specialty Diagnoses / Procedures Referred By Contac t Referred To Contact [facility] Diagnoses Female infertility Procedures FOLLICULAR US WHI US PELVIC NONOBSTETRIC IMAGE DCMTN LIMITED/F/U Eder Sykes MD [address] [place] [address] Phone: tel: fax: [facility] [place] [address] [place] [address] Referral ID Status Reason Start Date Expiration Date V isits Requested Visits Authorized [id number] Closed Auto-Generate d Referral 10/29/2024 10/29/2025 6 1 Specialty Diagnoses / Procedures Referred By Contac t Referred To Contact [facility] Diagnoses Female infertility, unspecified Procedures IVF #1 [place] [address] [place] [address] [facility] [address] [place] [address] Phone: tel: Referral ID Status Reason Start Date Expiration Date Visits Requested Visits Authorized [id number] Authorized Patient Cleared INN/SMCP Payor Auth Obtained Benefit Check 09/10/2024 01/10/2025 4 4 Reason Comments PT Eval Specialty Diagnoses / Procedures Referred By Contac t Referred To Contact PHYSICAL THERAPY Diagnoses Acute back pain, unspecified back location, unspecified back pain laterality Procedures CONSULT TO PHYSICAL THERAPY PHYSICAL THERAPY EVALUATION HIGH COMPLEX 45 MINS Mary Hamilton PA-C [address] [place] [address] Katie Rose, PT [address] [place] [address] Referral ID Status Reason Start Date Expiration Date Visits Requested Visits Authorized [id number] Authorized Auto-Generat ed Referral 05/20/2023 99 99 Reason Comments PT Progress Note Specialty Diagnoses / Procedures Referred By Yohannes larson Referred To Contact PHYSICAL THERAPY Diagnoses Lumbosacral radiculopathy at L5 Herniated intervertebral disc of lumbar spine Procedures CONSULT TO PHYSICAL THERAPY PHYSICAL THERAPY EVALUATION HIGH COMPLEX 45 MINS Frantz Benson L, DO [address] [place] [address] Pt [facility] [address] [place] [address] Referral ID Status Reason Start Date Expiration Date Visits Requested Visits Authorized [id number] Authorized Auto-Generat ed Referral 08/08/2021 05/20/2022 99 99 Reason Comments Physical Therapy Reason Comments New Patient Reason Comments Lab Orders Reason Comments Results Reason Comments Migraine medication Patient Update Reason Onset Date Comments Refill Request 10/11/2021 Reason Comments Request for PT order Reason Onset Date Comments Follow Up Immunizations 02/07/2022 Flu vaccination Reason Comments Migraine Established Patient Follow-Up Reason Comments Question Reason Comments Sinus Problem Reason Comments Patient Question Reason Comments Results Reason Comments Patient Update Reason Comments Ear Pain Reason Comments Throat Culture Started sat , cough, congestion sore throat. Son tested positive for strep Reason Comments sinus concern Reason Onset Date Comments Refill Request 07/26/2022 Reason Comments Insurance Authorization [employer] Reason Comments Sore Throat Started last night. Also states that she is tired. Exposed to strep. Reason Comments miscarriage follow up Reason Comments UTI Reason Comments Yearly Exam Reason Onset Date Comments Refill Request 02/21/2023 Reason Comments Infertility Reason Comments Sore Throat Pt c/o sore throat a nd cough x 1 day. 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 Reason Comments Patient Update Reason Comments Insurance Authorization ubrelvy Reason Comments IUI Teach Reason Comments IUI checklist review Reason Comments IUI Specialty Diagnoses / Procedures Referred By Yohannes larson Referred To Contact [facility] Diagnoses Encounter for fertility testing Procedures ARTIFIC [place] [address] [place] [place] [id number] [place] [facility] [address] [address] [place] [id number] Referral ID Status Reason Start Date Expiration Date V isits Requested Visits Authorized [id number] Closed Benefit Check 07/04/2023 12/31/2023 1 1 Reason Comments IUI Finanical Clearance next steps/cycle to start in next couple days Reason Comments Cough Reason Comments Next Steps Reason Comments Patient Question Patient Update Specialty Diagnoses / Procedures Referred By Yohannes larson Referred To Contact [facility] Diagnoses Female infertility Procedures FOLLICULAR US WHI US PELVIC NONOBSTETRIC IMAGE DCMTN LIMITED/F/U Tanja Abad PA-C [address] [place] [address] [place] [id number] Referral ID Status Reason Start Date Expiration Date V isits Requested Visits Authorized [id number] Closed Auto-Generate d Referral 08/17/2023 08/16/2024 1 1 Specialty Diagnoses / Procedures Referred By Yohannes larson Referred To Contact [facility] Diagnoses Encounter for other procreative management Procedures ARTIFIC INSEMINATION INTRAUTERIN Duncan Guadalupe APRN.UTILITY WORKER FILM PROCESSING [address] [place] [address] [place] [place] [facility] [address] [address] [address] [place] [phone] Referral ID Status Reason Start Date Expiration Date Visits Requested Visits Authorized [id number] Authorized Benefit Check 08/10/2023 05/20/2024 3 3 Reason Comments Appointment Specialty Diagnoses / Procedures Referred By Yohannes t Referred To Contact [facility] Diagnoses Encounter for fertility testing Procedures ARTIFIC [place] [address] [place] [address] [facility] [address] [address] [place] [phone] Reason Comments Next Steps Reason Comments Follow Up Reason Comments Patient Question Specialty Diagnoses / Procedures [facility]erred To Contact [facility] Diagnoses Female infertility Procedures FOLLICULAR US [facility] US PELVIC NONOBSTETRIC IMAGE DCMTN LIMITED/F/U Sanna Raymundo APRN.CNM [address] [address] [facility] [address] [place] [address] Referral ID Status Reason Start Date Expiration Date V isits Requested Visits Authorized [id number] Closed Auto-Generate d Referral 10/18/2023 10/17/2024 1 1 Reason Comments Returning Patient's Call Specialty Diagnoses / Procedures Referred By Yohannes t Referred To Contact [facility] Diagnoses Encounter for other procreative management Procedures ARTIFIC INSEMINATION INTRAUTERIN Duncan Guadalupe APRN.UTILITY WORKER FILM PROCESSING [address] [place] [phone] [facility] [address] [place] [phone] Reason Comments Headache Reason Comments letrozole clarify Reason Comments Opened In Error Reason Comments Anxiety Reason Comments Insurance Authorization Ubrelvy 100MG tablets Reason Comments anxiety f/up Reason Comments Mammogram Abnormality Reason Comments Refill Request Reason Comments Established Patient Reason Comments Follow Up Reason Comments Turkey Picker - Other Genetic Records Reason Comments Orders amh Reason Comments Physical Reason Comments Genetics Specialty Diagnoses / Procedures Referred By Yohannes t Referred To Contact Diagnoses Genetic carrier of other disease Procedures CONSULT TO MEDICAL GENETICS - MEDICAL GENETICS COUNSELING EACH 30 MINUTES Farideh De La Torre MD [address] [place] [address] Phone: tel: fax: [facility] [place] [address] Referral ID Status Reason Start Date Expiration Date V isits Requested Visits Authorized [id number] Closed PCP Requested Referral Auto-Generated Referral 09/15/2024 09/15/2025 1 1 Reason Comments discussion about starting adipex Reason Comments Kiran labs/pt did not receive e-mail fr om them Reason Comments Pt is calling to see next steps for thei r IVF process... Reason Comments Pre-Op Exam Reason Comments Medication Question Reason Comments Insurance Authorization Reason Comments kiran [employer] is calling on behalf of pt... Reason Comments needs FC for IVF Reason Comments Orders Reason Comments pt is reaching out with questions about pgt and genetic niall Reason Comments Discussion Fertility Reason Comments SIS Specialty Diagnoses / Procedures Referred By Contac t Referred To Contact [facility] Diagnoses Encounter for fertility testing Procedures SONOHYSTEROGRAPHY (SIS) US WHI SALINE INFUS SONOHYSTEROGRAPHY W/COLOR DOPPLER Eder Sykes MD [address] [place] [address] Phone: tel: fax: [address] [address] Referral ID Status Reason Start Date Expiration Date V isits Requested Visits Authorized [id number] Closed Benefit Check 12/16/2024 05/20/2025 1 1 Reason Comments New Patient Visit Care Teams (unrecognized sec tion and content) Cellophane Bath Mixer Relationship Specialty Start Date End Date Frantz Benson DO [address] [place], [place] [address]261 PCP - General Family Practice 12/18/14 Deepika Denise MD [address] [place] [address] Primary Staff Physician Cardiology 03/30/21 Cellophane Bath Mixer Relationship Specialty Start Date End Date Frantz Benson DO [address] [place], [place] [id number] PCP - General Family Practice 12/18/14 Deepika Denise MD [address] [place] [address] Primary Staff Physician Cardiology 03/30/21 Cellophane Bath Mixer Relationship Specialty Start Date End Date Frantz Benson, DO [address] [place] [address] PCP - General Family Practice 12/18/14 Deepika Denise MD [address] [place] [address] Primary Staff Physician Cardiology 03/30/21 Cellophane Bath Mixer Relationship Specialty Start Date End Date Frantz Benson, DO [address] [place] [address] PCP - General Family Practice 12/18/14 Deepika Denise MD [address] [place] [address] Primary Staff Physician Cardiology 03/30/21 Cellophane Bath Mixer Relationship Specialty Start Date End Date Frantz Benson, DO [address] [place] [address] PCP - General Family Practice 12/18/14 Deepika Denise MD [address] [facility] [address] Primary Staff Physician Cardiology 03/30/21 Cellophane Bath Mixer Relationship Specialty Start Date End Date Frantz Benson, DO [address] [place] [address] PCP - General Family Practice 12/18/14 Deepika Denise MD [address] [place] [address] Primary Staff Physician Cardiology 03/30/21 Cellophane Bath Mixer Relationship Specialty Start Date End Date Frantz Benson, DO [address] [facility] [place] [address] PCP - General Family Practice 12/18/14 Deepika Denise MD [address] [place] [address] Primary Staff Physician Cardiology 03/30/21 Cellophane Bath Mixer Relationship Specialty Start Date End Date Frantz Benson, DO [address] [facility] [place] [address] PCP - General Family Practice 12/18/14 Deepika Denise MD [address] [place] [place] [address] Primary Staff Physician Cardiology 03/30/21 Cellophane Bath Mixer Relationship Specialty Start Date End Date Frantz Benson, DO [address] [facility] [place] [address] PCP - General Family Practice 12/18/14 Deepika Denise MD [address] [place] [address] Primary Staff Physician Cardiology 03/30/21 Cellophane Bath Mixer Relationship Specialty Start Date End Date Frantz Benson, DO [address] [facility] [place] [address] PCP - General Family Practice 12/18/14 Deepika Denise MD [address] [place] [address] Primary Staff Physician Cardiology 03/30/21 Cellophane Bath Mixer Relationship Specialty Start Date End Date Frantz Benson, DO [address] [facility] [facility] [place] [address] PCP - General Family Practice 12/18/14 Deepika Denise MD [address] [place] [address] Primary Staff Physician Cardiology 03/30/21 Cellophane Bath Mixer Relationship Specialty Start Date End Date Frantz Benson, DO [address] [place] [address] PCP - General Family Practice 12/18/14 Deepika Denise MD [address] [place] [address] Primary Staff Physician Cardiology 03/30/21 Cellophane Bath Mixer Relationship Specialty Start Date End Date Frantz Benson, DO [address] [place] [address] PCP - General Family Medicine 12/18/14 Deepika Denise MD [address] [place] [address] Primary Staff Physician Cardiology 03/30/21 Cellophane Bath Mixer Relationship Specialty Start Date End Date Frantz Benson, DO [address] [place] [address] PCP - General Family Medicine 12/18/14 Deepika Denise MD [address] [place] [address] Primary Staff Physician Cardiology 03/30/21 Cellophane Bath Mixer Relationship Specialty Start Date End Date Frantz Benson, DO [address] [place] [address] PCP - General Family Medicine 12/18/14 Deepika Denise MD [address] [facility] [facility] [place] [address] Primary Staff Physician Cardiology 03/30/21 Cellophane Bath Mixer Relationship Specialty Start Date End Date Frantz Benson, DO [address] [facility] [place] [address] PCP - General Family Medicine 12/18/14 Deepika Denise MD [address] [place] [place] [address] Primary Staff Physician Cardiology 03/30/21 Cellophane Bath Mixer Relationship Specialty Start Date End Date Frantz Benson, DO [address] [facility] [place] [address] PCP - General Family Medicine 12/18/14 Deepika Denise MD [address] [facility] [place] [address] Primary Staff Physician Cardiology 03/30/21 Cellophane Bath Mixer Relationship Specialty Start Date End Date Frantz Benson, DO [address] [place] [address] PCP - General Family Medicine 12/18/14 Deepika Denise MD [address] EU[address] BY [facility] [place] [address] Primary Staff Physician Cardiology 03/30/21 Cellophane Bath Mixer Relationship Specialty Start Date End Date Frantz Benson, DO [address] [facility] [place] [address] PCP - General Family Medicine 12/18/14 Deepika Denise MD [address] [place] [address] Primary Staff Physician Cardiology 03/30/21 Cellophane Bath Mixer Relationship Specialty Start Date End Date Frantz Benson, DO [address] [facility] [place] [address] PCP - General Family Medicine 12/18/14 Deepika Denise MD [address] [place] [address] Primary Staff Physician Cardiology 03/30/21 Cellophane Bath Mixer Relationship Specialty Start Date End Date Frantz Benson, DO [address] [place] [address] PCP - General Family Medicine 12/18/14 Deepika Denise MD [address] [place] [address] Primary Staff Physician Cardiology 03/30/21 Cellophane Bath Mixer Relationship Specialty Start Date End Date Frantz Benson DO [address] [place] [address] PCP - General Family Medicine 12/18/14 Deepika Denise MD [address] [place] [address] Primary Staff Physician Cardiology 03/30/21 Cellophane Bath Mixer Relationship Specialty Start Date End Date Frantz Benson, DO [address] [place] [address] PCP - General Family Medicine 12/18/14 Deepika Denise MD [address] [place] [address] Primary Staff Physician Cardiology 03/30/21 Cellophane Bath Mixer Relationship Specialty Start Date End Date Frantz Benson, DO [address] [place] [address] PCP - General Family Medicine 12/18/14 Deepika Denise MD [address] [facility] [place] [address] Primary Staff Physician Cardiology 03/30/21 Cellophane Bath Mixer Relationship Specialty Start Date End Date Frantz Benson DO [address] [place] [address] PCP - General Family Medicine 12/18/14 Deepika Denise MD [address] [place] [address] Primary Staff Physician Cardiology 03/30/21 Cellophane Bath Mixer Relationship Specialty Start Date End Date Frantz Benson DO [address] [place] [address] PCP - General Family Medicine 12/18/14 Deepika Denise MD [address] [place] [address] Primary Staff Physician Cardiology 03/30/21 Cellophane Bath Mixer Relationship Specialty Start Date End Date Frantz Benson DO [address] [place] [address] PCP - General Family Medicine 12/18/14 Deepika Denise MD [address] [place] [address] Primary Staff Physician Cardiology 03/30/21 Cellophane Bath Mixer Relationship Specialty Start Date End Date Frantz Benson DO [address] [place] [address] PCP - General Family Medicine 12/18/14 Deepika Denise MD [address] [facility] [place] [address] Primary Staff Physician Cardiology 03/30/21 Cellophane Bath Mixer Relationship Specialty Start Date End Date Frantz Benson DO [address] [place] [address] PCP - General Family Medicine 12/18/14 Deepika Denise MD [address] [place] [address] Primary Staff Physician Cardiology 03/30/21 Cellophane Bath Mixer Relationship Specialty Start Date End Date Frantz Benson DO [address] [place] [address] PCP - General Family Medicine 12/18/14 Deepika Denise MD [address] [place] [address] Primary Staff Physician Cardiology 03/30/21 Cellophane Bath Mixer Relationship Specialty Start Date End Date Frantz Benson DO [address] [place] [address] PCP - General Family Medicine 12/18/14 Deepika Denise MD [address] [facility] [place] [address] Primary Staff Physician Cardiology 03/30/21 Cellophane Bath Mixer Relationship Specialty Start Date End Date Frantz Benson DO [address] [place] [address] PCP - General Family Medicine 12/18/14 Deepika Denise MD [address] [facility] [place] [address] Primary Staff Physician Cardiology 03/30/21 Cellophane Bath Mixer Relationship Specialty Start Date End Date Frantz Benson DO [address] [place] [address] PCP - General Family Medicine 12/18/14 Deepika Denise MD [address] [facility] [place] [address] Primary Staff Physician Cardiology 03/30/21 Cellophane Bath Mixer Relationship Specialty Start Date End Date Frantz Benson DO [address] [place], [place] [address] PCP - General Family Medicine 12/18/14 Deepika Denise MD [address] [place] [address] Primary Staff Physician Cardiology 03/30/21 Cellophane Bath Mixer Relationship Specialty Start Date End Date Frantz Benson DO [address] [place] [address] PCP - General Family Medicine 12/18/14 Deepika Denise MD [address] [place] [address] Primary Staff Physician Cardiology 03/30/21 Cellophane Bath Mixer Relationship Specialty Start Date End Date Frantz Benson DO [address] [place] [address] PCP - General Family Medicine 12/18/14 Deepika Denise MD [address] [place] [address] Primary Staff Physician Cardiology 03/30/21 Cellophane Bath Mixer Relationship Specialty Start Date End Date Frantz Benson DO [address] [place] [address] PCP - General Family Medicine 12/18/14 Deepika Denise MD [address] [facility] [address] Primary Staff Physician Cardiology 03/30/21 Cellophane Bath Mixer Relationship Specialty Start Date End Date Frantz Benson DO [address] [facility] [place] [place] [address] PCP - General Family Medicine 12/18/14 Deepika Denise MD [address] [place] [address] Primary Staff Physician Cardiology 03/30/21 Cellophane Bath Mixer Relationship Specialty Start Date End Date Frantz Benson DO [address] [facility] [place] [address] PCP - General Family Medicine 12/18/14 Deepika Denise MD [address] [facility] [address] Primary Staff Physician Cardiology 03/30/21 Cellophane Bath Mixer Relationship Specialty Start Date End Date Frantz Benson DO [address] [facility] [place] [place] [address] PCP - General Family Medicine 12/18/14 Deepika Denise MD [address] [facility] [address] Primary Staff Physician Cardiology 03/30/21 Cellophane Bath Mixer Relationship Specialty Start Date End Date Frantz Benson DO [address] [facility] [place] [address] PCP - General Family Medicine 12/18/14 Deepika Denise MD [address] [facility] [place] [address] Primary Staff Physician Cardiology 03/30/21 Cellophane Bath Mixer Relationship Specialty Start Date End Date Frantz Benson DO [address] [facility] [place] [address] PCP - General Family Medicine 12/18/14 Deepika Denise MD [address] [place] [address] Primary Staff Physician Cardiology 03/30/21 Cellophane Bath Mixer Relationship Specialty Start Date End Date Frantz Benson DO [address] [facility] [place] [place] [address] PCP - General Family Medicine 12/18/14 Deepika Denise MD [address] [facility] [place] [address] Primary Staff Physician Cardiology 03/30/21 Cellophane Bath Mixer Relationship Specialty Start Date End Date Frantz Benson DO [address] [facility] [address] PCP - General Family Medicine 12/18/14 Deepika Denise MD [address] [facility] [place] [address] Primary Staff Physician Cardiology 03/30/21 Cellophane Bath Mixer Relationship Specialty Start Date End Date Frantz Benson DO [address] [facility] [address] PCP - General Family Medicine 12/18/14 Deepika Denise MD [address] [facility] [address] Primary Staff Physician Cardiology 03/30/21 Cellophane Bath Mixer Relationship Specialty Start Date End Date Frantz Benson DO [address] [facility] [address] PCP - General Family Medicine 12/18/14 Deepika Denise MD [address] [facility] [place] [address] Primary Staff Physician Cardiology 03/30/21 Cellophane Bath Mixer Relationship Specialty Start Date End Date Frantz Benson DO [address] [facility] [address] PCP - General Family Medicine 12/18/14 Deepika Denise MD [address] [facility] [place] [address] Primary Staff Physician Cardiology 03/30/21 Cellophane Bath Mixer Relationship Specialty Start Date End Date Frantz Benson DO [address] [facility] [place] [address] PCP - General Family Medicine 12/18/14 Deepika Denise MD [address] [facility] [address] Primary Staff Physician Cardiology 03/30/21 Cellophane Bath Mixer Relationship Specialty Start Date End Date Frantz Benson DO [address] [facility] [place] [address] PCP - General Family Medicine 12/18/14 Deepika Denise MD [address] [facility] [place] [address] Primary Staff Physician Cardiology 03/30/21 Cellophane Bath Mixer Relationship Specialty Start Date End Date Frantz Benson DO [address] [place] [address] PCP - General Family Medicine 12/18/14 Deepika Denise MD [address] [place] [address] Primary Staff Physician Cardiology 03/30/21 Cellophane Bath Mixer Relationship Specialty Start Date End Date Frantz Benson DO [address] [place] [address] PCP - General Family Medicine 12/18/14 Deepika Denise MD [address] [place] [address] Primary Staff Physician Cardiology 03/30/21 Cellophane Bath Mixer Relationship Specialty Start Date End Date Frantz Benson DO [address] [place] [address] PCP - General Family Medicine 12/18/14 Deepika Denise MD [address] [place] [address] Primary Staff Physician Cardiology 03/30/21 Cellophane Bath Mixer Relationship Specialty Start Date End Date Frantz Benson DO [address] [place] [address] PCP - General Family Medicine 12/18/14 Deepika Denise MD [address] [place] [address] Primary Staff Physician Cardiology 03/30/21 Cellophane Bath Mixer Relationship Specialty Start Date End Date Frantz Benson DO [address] [place] [address] PCP - General Family Medicine 12/18/14 Deepika Denise MD [address] [place] [address] Primary Staff Physician Cardiology 03/30/21 Fariba Bahena, ORTHODONTIST.UTILITY WORKER FILM PROCESSING [address] [facility] [place] [address] Revenue Accountant Family [facility] 04/27/24 Anastasiya Erwin, ORTHODONTIST.UTILITY WORKER FILM PROCESSING [address] [facility] [place] [address] [facility] 04/27/24 Cellophane Bath Mixer Relationship Specialty Start Date End Date Frantz Benson DO [address] [facility] [address] PCP - General Family Medicine 12/18/14 Deepika Denise MD [address] [facility] [place] [address] Primary Staff Physician Cardiology 03/30/21 Fariba Bahena, ORTHODONTIST.UTILITY WORKER FILM PROCESSING [address] [facility] [address] Revenue Accountant Family [facility] 04/27/24 YaimaAnastasiya, ORTHODONTIST.UTILITY WORKER FILM PROCESSING [address] [facility] [place] [address] [facility] 04/27/24 Cellophane Bath Mixer Relationship Specialty Start Date End Date Frantz Benson DO [address] [facility] [address] PCP - General Family Medicine 12/18/14 Deepika Denise MD [address] [facility] [place] [address] Primary Staff Physician Cardiology 03/30/21 Fariba Bahena, ORTHODONTIST.UTILITY WORKER FILM PROCESSING [address] [facility] [place] [address] [facility] 04/27/24 [facility] County[facility]ast[facility]ya, ORTHODONTIST.UTILITY WORKER FILM PROCESSING [address] [facility] [place] [address] [facility] 04/27/24 Cellophane Bath Mixer Relationship Specialty Start Date End Date Frantz Benson DO [address] [facility] [place] [address] PCP - General Family Medicine 12/18/14 Deepika Denise MD [address] [facility] [place] [address] Primary Staff Physician Cardiology 03/30/21 Fariba Bahena, ORTHODONTIST.UTILITY WORKER FILM PROCESSING [address] [place] [address] [facility] 04/27/24 [facility] County[facility]astasiya, ORTHODONTIST.UTILITY WORKER FILM PROCESSING [address] [facility] [place] [address] [facility] 04/27/24 Cellophane Bath Mixer Relationship Specialty Start Date End Date Frantz Benson DO [address] [facility] [address] PCP - General Family Medicine 12/18/14 Deepika Denise MD [address] [place] [address] Primary Staff Physician Cardiology 03/30/21 Fariba Bahena, ORTHODONTIST.UTILITY WORKER FILM PROCESSING [address] [place] [address] Revenue Accountant Family Medicine 04/27/24 YaimaAnastasiya, ORTHODONTIST.UTILITY WORKER FILM PROCESSING [address] [place] [address] [facility] 04/27/24 Cellophane Bath Mixer Relationship Specialty Start Date End Date Frantz Benson DO [address] [place] [address] PCP - General Family Medicine 12/18/14 Deepika Denise MD [address] [place] [address] Primary Staff Physician Cardiology 03/30/21 Fariba Bahena, ORTHODONTIST.UTILITY WORKER FILM PROCESSING [address] [place] [address] Revenue Accountant Family [facility] 04/27/24 YaimaAnastasiya, ORTHODONTIST.UTILITY WORKER FILM PROCESSING [address] [place] [address] Revenue [facility]ant[facility] 04/27/24 Cellophane Bath Mixer Relationship Specialty Start Date End Date Frantz Benson DO [address] [place] [address] PCP - General Family Medicine 12/18/14 Deepika Denise MD [address] [place] [address] Primary Staff Physician Cardiology 03/30/21 Anastasiya Erwin, ORTHODONTIST.UTILITY WORKER FILM PROCESSING [address] [place] [address] Revenue Accountant Family Medicine 04/27/24 Cellophane Bath Mixer Relationship Specialty Start Date End Date Frantz Benson DO [address] [place] [address] PCP - General Family Medicine 12/18/14 Deepika Denise MD [address] [place] [address] Primary Staff Physician Cardiology 03/30/21 Anastasiya Erwin, ORTHODONTIST.UTILITY WORKER FILM PROCESSING [address] [place] [address] Revenue Accountant Family Medicine 04/27/24 Cellophane Bath Mixer Relationship Specialty Start Date End Date Frantz Benson DO [address] [place] [address] PCP - General Family Medicine 12/18/14 Deepika Denise MD [address] [place] [address] Primary Staff Physician Cardiology 03/30/21 Anastasiya Erwin, ORTHODONTIST.UTILITY WORKER FILM PROCESSING [address] [place] [address] Revenue Accountant Family Medicine 04/27/24 Cellophane Bath Mixer Relationship Specialty Start Date End Date Frantz Benson DO [address] [place] [address] PCP - General Family Medicine 12/18/14 Deepika Denise MD [address] [place], [place] [address]40[address] Primary Staff Physician Cardiology 03/30/21 Fariba Bahena ORTHODONTIST.UTILITY WORKER FILM PROCESSING [address] [place], [place] 164511 Revenue Accountant Family [facility] 04/27/24 08/08/24 Anastasiya Erwin APRN.UTILITY WORKER FILM PROCESSING [address] [place] [address] [facility] 04/27/24 Cellophane Bath Mixer Relationship Specialty Start Date End Date Frantz Benson DO [address] [place] [address] PCP - General Family Medicine 12/18/14 Deepika Denise MD [address] [place] [address] Primary Staff Physician Cardiology 03/30/21 Anastasiya Erwin, ORTHODONTIST.UTILITY WORKER FILM PROCESSING [address] [place] [address] [facility] 04/27/24 Cellophane Bath Mixer Relationship Specialty Start Date End Date Frantz Benson DO [address] [place] [address] PCP - General Family Medicine 12/18/14 Deepika Denise MD [address] [place], [place] [address]279[address] Primary Staff Physician Cardiology 03/30/21 [facility] CountyTeofiloah, ORTHODONTIST.UTILITY WORKER FILM PROCESSING [address] [facility] [place] [place] [address] [facility] 04/27/24 Cellophane Bath Mixer Relationship Specialty Start Date End Date Frantz Benson DO [address] [facility] [place] [place] [address] PCP - General Family Medicine 12/18/14 Deepika Denise MD [address] [facility] [address] Primary Staff Physician Cardiology 03/30/21 [facility] CountyAnastasiya, ORTHODONTIST.UTILITY WORKER FILM PROCESSING [address] [facility] [address] [facility] 04/27/24 Cellophane Bath Mixer Relationship Specialty Start Date End Date Frantz Benson DO [address] [facility] [place] [address] PCP - General Family Medicine 12/18/14 Deepika Denise MD [address] [facility] [place] [address] Primary Staff Physician Cardiology 03/30/21 [facility] CountyTeofiloah, ORTHODONTIST.UTILITY WORKER FILM PROCESSING [address] [facility] [address] [facility] 04/27/24 Cellophane Bath Mixer Relationship Specialty Start Date End Date Frantz Benson DO [address] [facility] [place] [address] PCP - General Family Medicine 12/18/14 Deepika Denise MD [address] [facility] [place] [address] Primary Staff Physician Cardiology 03/30/21 Anastasiya Erwin, ORTHODONTIST.UTILITY WORKER FILM PROCESSING [address] [place] [address] Revenue Accountant Family Medicine 04/27/24 Cellophane Bath Mixer Relationship Specialty Start Date End Date Frantz Benson DO [address] [facility] [place] [address] PCP - General Family Medicine 12/18/14 Deepika Denise MD [address] [facility] [place] [address] Primary Staff Physician Cardiology 03/30/21 Anastasiya Erwin, ORTHODONTIST.UTILITY WORKER FILM PROCESSING [address] [facility] [place] [address] Revenue Accountant Family Medicine 04/27/24 Cellophane Bath Mixer Relationship Specialty Start Date End Date Frantz Benson DO [address] [place] [address] PCP - General Family Medicine 12/18/14 Deepika Denise MD [address] [facility] [place] [address] Primary Staff Physician Cardiology 03/30/21 Anastasiya Erwin, ORTHODONTIST.UTILITY WORKER FILM PROCESSING [address] [facility] [place] [address] Revenue Accountant Family Medicine 04/27/24 Cellophane Bath Mixer Relationship Specialty Start Date End Date Frantz Benson DO [address] [facility] [place] [address] PCP - General Family Medicine 12/18/14 Deepika Denise MD [address] [place] [address] Primary Staff Physician Cardiology 03/30/21 Anastasiya Erwin APRN.UTILITY WORKER FILM PROCESSING [address] [facility] [place] [address] Revenue Accountant Family Medicine 04/27/24 Cellophane Bath Mixer Relationship Specialty Start Date End Date Frantz Benson DO [address] [place] [address] PCP - General Family Medicine 12/18/14 Deepika Denise MD [address] [place] [address] Primary Staff Physician Cardiology 03/30/21 Anastasiya Erwin, ORTHODONTIST.UTILITY WORKER FILM PROCESSING [address] [place] [address] Revenue Accountant Family [facility] 04/27/24 Cellophane Bath Mixer Relationship Specialty Start Date End Date Frantz Benson DO [address] [place] [address] PCP - General Family Medicine 12/18/14 Deepika Denise MD [address] [place] [address] Primary Staff Physician Cardiology 03/30/21 Anastasiya Erwin, ORTHODONTIST.UTILITY WORKER FILM PROCESSING [address] [place] [address] Revenue Accountant Family Medicine 04/27/24 Cellophane Bath Mixer Relationship Specialty Start Date End Date Frantz Benson DO [address] [facility], [place] [address] PCP - General Family Medicine 12/18/14 Deepika Denise MD [address] [place] [address] Primary Staff Physician Cardiology 03/30/21 Anastasiya Erwin, ORTHODONTIST.UTILITY WORKER FILM PROCESSING [address] [place] [address] [facility] 04/27/24 Cellophane Bath Mixer Relationship Specialty Start Date End Date Frantz Benson DO [address] [place] [address] PCP - General Family Medicine 12/18/14 Deepika Denise MD [address] [place] [address] Primary Staff Physician Cardiology 03/30/21 Anastasiya Erwin, ORTHODONTIST.UTILITY WORKER FILM PROCESSING [address] [place] [address] Revenue Accountant Family Medicine 04/27/24 Fermin Field, ORTHODONTIST.UTILITY WORKER FILM PROCESSING [address] [place], [place] [address] [facility] 11/03/24 Cellophane Bath Mixer Relationship Specialty Start Date End Date Frantz Benson DO [address] [place] [address] PCP - General Family Medicine 12/18/14 Deepika Denise MD [address] [place] [address] Primary Staff Physician Cardiology 03/30/21 [facility] CountyAnastasiya, ORTHODONTIST.UTILITY WORKER FILM PROCESSING [address] [place] [address] [facility] 04/27/24 Fermin Field, ORTHODONTIST.UTILITY WORKER FILM PROCESSING [address] [place] [address] [facility] 11/03/24 Cellophane Bath Mixer Relationship Specialty Start Date End Date Frantz Benson DO [address] [place] [address] PCP - General Family Medicine 12/18/14 Deepika Denise MD [address] [place] [address] Primary Staff Physician Cardiology 03/30/21 [facility] CountyAnastasiya, ORTHODONTIST.UTILITY WORKER FILM PROCESSING [address] [place] [address] [facility] 04/27/24 Fermin Field, ORTHODONTIST.UTILITY WORKER FILM PROCESSING [address] [place] [address] [facility] 11/03/24 Cellophane Bath Mixer Relationship Specialty Start Date End Date Frantz Benson DO [address] [place] [address] PCP - General Family Medicine 12/18/14 Deepika Denise MD [address] [facility] [place] [address] Primary Staff Physician Cardiology 03/30/21 Anastasiya Erwin, ORTHODONTIST.UTILITY WORKER FILM PROCESSING [address] [facility] [place] [address] Revenue Accountant Family Medicine 04/27/24 Fermin Field, ORTHODONTIST.UTILITY WORKER FILM PROCESSING [address] [place] [address] [facility]ant[facility] 11/03/24 Cellophane Bath Mixer Relationship Specialty Start Date End Date Frantz Benson DO [address] [facility] [place] [address] PCP - General Family Medicine 12/18/14 Deepika Denise MD [address] [facility] [place] [address] Primary Staff Physician Cardiology 03/30/21 Anastasiya Erwin, ORTHODONTIST.UTILITY WORKER FILM PROCESSING [address] [facility] [place] [address] Revenue Accountant Family Medicine 04/27/24 Fermin Field, ORTHODONTIST.UTILITY WORKER FILM PROCESSING [address] [place] [address] [facility] 11/03/24 Cellophane Bath Mixer Relationship Specialty Start Date End Date Frantz Benson DO [address] [facility] [place] [address] PCP - General Family Medicine 12/18/14 Deepika Denise MD [address] [place] [address] Primary Staff Physician Cardiology 03/30/21 Anastasiya Erwin, ORTHODONTIST.UTILITY WORKER FILM PROCESSING [address] [facility] [place] [facility] [place] [address] [facility] 04/27/24 Fermin Field, ORTHODONTIST.UTILITY WORKER FILM PROCESSING [address] [place] [address] [facility] 11/03/24 Cellophane Bath Mixer Relationship Specialty Start Date End Date Frantz Benson DO [address] [place] [address] PCP - General Family Medicine 12/18/14 Deepika Denise MD [address] [place] [address] Primary Staff Physician Cardiology 03/30/21 Anastasiya Erwin, ORTHODONTIST.UTILITY WORKER FILM PROCESSING [address] [place] [address] [facility] 04/27/24 Fermin Field, ORTHODONTIST.UTILITY WORKER FILM PROCESSING [address] [place] [address] [facility] 11/03/24 Cellophane Bath Mixer Relationship Specialty Start Date End Date Frantz Benson DO [address] [facility] [place], [place] [address] PCP - General Family Medicine 12/18/14 Deepika Denise MD [address] [place] [address] Primary Staff Physician Cardiology 03/30/21 [facility], ORTHODONTIST.UTILITY WORKER FILM PROCESSING [address] [place], [place] [address] [facility] 04/27/24 Fermin Field ORTHODONTIST.UTILITY WORKER FILM PROCESSING [address] [place] [address] [facility] 11/03/24 Cellophane Bath Mixer Relationship Specialty Start Date End Date Frantz Benson DO [address] [place] [address] PCP - General Family Medicine 12/18/14 Deepika Denise MD [address] [place] [address] Primary Staff Physician Cardiology 03/30/21 [facility], ORTHODONTIST.UTILITY WORKER FILM PROCESSING [address] [place] [address] [facility] 04/27/24 Fermin Field, ORTHODONTIST.UTILITY WORKER FILM PROCESSING [address] [place] [address] [facility] 11/03/24 Cellophane Bath Mixer Relationship Specialty Start Date End Date Frantz Benson DO [address] [place] [address] PCP - General Family Medicine 12/18/14 Deepika Denise MD [address] [facility] [place] [address] Primary Staff Physician Cardiology 03/30/21 Anastasiya Erwin, SARAH.UTILITY WORKER FILM PROCESSING [address] [facility] [place] [address] [facility] 04/27/24 Fermin Field APRN.UTILITY WORKER FILM PROCESSING [address] [place] [address] [facility] 11/03/24 Cellophane Bath Mixer Relationship Specialty Start Date End Date Frantz Benson DO [address] [facility] [place] [address] PCP - General Family Medicine 12/18/14 Deepika Denise MD [address] [facility] [place] [address] Primary Staff Physician Cardiology 03/30/21 Anastasiya Erwin, ORTHODONTIST.UTILITY WORKER FILM PROCESSING [address] [facility] [place] [address] [facility] 04/27/24 Fermin Field, ORTHODONTIST.UTILITY WORKER FILM PROCESSING [address] [place] [address] [facility] 11/03/24 Cellophane Bath Mixer Relationship Specialty Start Date End Date Frantz Benson DO [address] [facility] [place] [address] PCP - General Family Medicine 12/18/14 Deepika Denise MD [address] [facility] [place] [address] Primary Staff Physician Cardiology 03/30/21 Anastasiya Erwin, ORTHODONTIST.UTILITY WORKER FILM PROCESSING [address] [place] [address] Revenue Accountant [facility] 04/27/24 Fermin Field ORTHODONTIST.UTILITY WORKER FILM PROCESSING [address] [place] [address] Revenue Accountant [facility] 11/03/24 Cellophane Bath Mixer Relationship Specialty Start Date End Date Frantz Benson DO [address] [place] [address] PCP - General Family Medicine 12/18/14 Deepika Denise MD [address] [place] [address] Primary Staff Physician Cardiology 03/30/21 Anastasiya Erwin, ORTHODONTIST.UTILITY WORKER FILM PROCESSING [address] [place] [address] Revenue Accountant [facility] 04/27/24 Fermin Field, ORTHODONTIST.UTILITY WORKER FILM PROCESSING [address] [place] [address] [facility] 11/03/24 Cellophane Bath Mixer Relationship Specialty Start Date End Date Frantz Benson DO [address] [place] [address] PCP - General Family Medicine 12/18/14 Deepika Denise MD [address] [place], [place] [address] Primary Staff Physician Cardiology 03/30/21 Anastasiya Erwin, ORTHODONTIST.UTILITY WORKER FILM PROCESSING [address] [place], [place] [address] [facility] 04/27/24 Fermin Field ORTHODONTIST.UTILITY WORKER FILM PROCESSING [address] [place], [place] [address] [facility] 11/03/24 Cellophane Bath Mixer Relationship Specialty Start Date End Date Frantz Benson DO [address] [place], [place] [address]67[address] PCP - General Family Medicine 12/18/14 Deepika Denise MD [address] [place], [place] [address] Primary Staff Physician Cardiology 03/30/21 Anastasiya Erwin, ORTHODONTIST.UTILITY WORKER FILM PROCESSING [address] [place] [address] [facility] 04/27/24 Fermin Field, ORTHODONTIST.UTILITY WORKER FILM PROCESSING [address] [place], [place] [address] [facility] 11/03/24 Cellophane Bath Mixer Relationship Specialty Start Date End Date Frantz Benson DO [address] [place] [address] PCP - General Family Medicine 12/18/14 Deepika Denise MD [address] [place], [place] [address] Primary Staff Physician Cardiology 03/30/21 Anastasiya Erwin, ORTHODONTIST.UTILITY WORKER FILM PROCESSING [address] [place], [place] [address] [facility] 04/27/24 Fermin Field ORTHODONTIST.UTILITY WORKER FILM PROCESSING [address] [place] [address] [facility] 11/03/24 Cellophane Bath Mixer Relationship Specialty Start Date End Date Frantz Benson DO [address] [place] [address] PCP - General Family Medicine 12/18/14 Deepika Denise MD [address] [place] [address] Primary Staff Physician Cardiology 03/30/21 Anastasiya Erwin, ORTHODONTIST.UTILITY WORKER FILM PROCESSING [address] [place] [address] [facility] 04/27/24 Fermin Field, ORTHODONTIST.UTILITY WORKER FILM PROCESSING [address] [place] [address] [facility] 11/03/24 Cellophane Bath Mixer Relationship Specialty Start Date End Date Frantz Benson DO [address] [place] [address] PCP - General Family Medicine 12/18/14 Deepika Denise MD [address] [place] [address] Primary Staff Physician Cardiology 03/30/21 Anastasiya Erwin ORTHODONTIST.UTILITY WORKER FILM PROCESSING [address] [place] [address] Revenue Accountant [facility] 04/27/24 Fermin Field ORTHODONTIST.UTILITY WORKER FILM PROCESSING [address] [place] [address] Revenue Accountant Family [facility] 11/03/24 Cellophane Bath Mixer Relationship Specialty Start Date End Date Frantz Benson DO [address] [place] [address] PCP - General Family Medicine 12/18/14 Deepika Denise MD [address] [place] [address] Primary Staff Physician Cardiology 03/30/21 Anastasiya Erwin APRN.UTILITY WORKER FILM PROCESSING [address] [place] [address] Revenue Accountant [facility] 04/27/24 Fermin Field ORTHODONTIST.UTILITY WORKER FILM PROCESSING [address] [place] [address] [facility] 11/03/24 Cellophane Bath Mixer Relationship Specialty Start Date End Date Frantz Benson DO [address] [place] [address] PCP - General Family Medicine 12/18/14 Deepika Denise MD [address] [place] [address] Primary Staff Physician Cardiology 03/30/21 Anastasiya Erwin, ORTHODONTIST.UTILITY WORKER FILM PROCESSING [address] [place], [place] [address] Revenue Accountant [facility] 04/27/24 Fermin Field ORTHODONTIST.UTILITY WORKER FILM PROCESSING [address] [place] [address] Revenue Accountant Family [facility] 11/03/24 Cellophane Bath Mixer Relationship Specialty Start Date End Date Frantz Benson DO [address] [place] [address] PCP - General Family Medicine 12/18/14 Deepika Denise MD [address] [place] [address] Primary Staff Physician Cardiology 03/30/21 Anastasiya Erwin, ORTHODONTIST.UTILITY WORKER FILM PROCESSING [address] [place] [address] [facility] 04/27/24 Fermin Field, ORTHODONTIST.UTILITY WORKER FILM PROCESSING [address] [place] [address] [facility] 11/03/24 Cellophane Bath Mixer Relationship Specialty Start Date End Date Frantz Benson DO [address] [place] [address] PCP - General Family Medicine 12/18/14 Deepika Denise MD [address] [place] [address] Primary Staff Physician Cardiology 03/30/21 Anastasiya Erwin, ORTHODONTIST.UTILITY WORKER FILM PROCESSING [address] [place] [address] [facility] Medicine 04/27/24 Fermin Field ORTHODONTIST.UTILITY WORKER FILM PROCESSING [address] [place] [address] [facility] 11/03/24 Cellophane Bath Mixer Relationship Specialty Start Date End Date Frantz Benson DO [address] [place] [address] PCP - General Family Medicine 12/18/14 Deepika Denise MD [address] [place] [address] Primary Staff Physician Cardiology 03/30/21 [facility], ORTHODONTIST.UTILITY WORKER FILM PROCESSING [address] [place], [place] [address] [facility] 04/27/24 Fermin Field, ORTHODONTIST.UTILITY WORKER FILM PROCESSING [address] [place] [address] [facility] 11/03/24 Cellophane Bath Mixer Relationship Specialty Start Date End Date Frantz Benson DO [address] [place] [address] PCP - General Family Medicine 12/18/14 Deepika Denise MD [address] [place] [address] Primary Staff Physician Cardiology 03/30/21 [facility], ORTHODONTIST.UTILITY WORKER FILM PROCESSING [address] [place] [address] [facility] 04/27/24 Fermin Field, ORTHODONTIST.UTILITY WORKER FILM PROCESSING [address] [place] [address] [facility] 11/03/24 Cellophane Bath Mixer Relationship Specialty Start Date End Date Frantz Benson DO [address] [facility] [place] [address] PCP - General Family Medicine 12/18/14 Deepika Denise MD [address] [facility] [place] [address] Primary Staff Physician Cardiology 03/30/21 Anastasiya Erwin, ORTHODONTIST.UTILITY WORKER FILM PROCESSING [address] [place] [address] [facility] 04/27/24 Fermin Field ORTHODONTIST.UTILITY WORKER FILM PROCESSING [address] [place] [address] [facility] 11/03/24 Cellophane Bath Mixer Relationship Specialty Start Date End Date Frantz Benson DO [address] [facility] [place] [address] PCP - General Family Medicine 12/18/14 Deepika Denise MD [address] [facility] [place] [address] Primary Staff Physician Cardiology 03/30/21 Anastasiya Erwin, ORTHODONTIST.UTILITY WORKER FILM PROCESSING [address] [facility] [place] [address] [facility] 04/27/24 Fermin Field, ORTHODONTIST.UTILITY WORKER FILM PROCESSING [address] [place] [address] [facility] 11/03/24 Cellophane Bath Mixer Relationship Specialty Start Date End Date Daniel Jefferson, RN Registered Nurse 02/11/25 FOR RECORDS PERTAINING TO PATIENTS WHO ARE OR HAVE BEEN ENROLLED IN A CHEMICAL DEPENDENCY/SUBSTANCEABUSE PROGRAM, SOME INFORMATION MAY BE OMITTED. This clinical summary was aggregated from multiple sources. Caution should be exercised in using it in the provision of clinical care. This summary normalizes information from multiple sources, and as a consequence, information in this document may materially change the coding, format and clinical context of patient data. In addition, data may be omitted in some cases. CLINICAL DECISIONS SHOULD BE BASED ON THE PRIMARY CLINICAL RECORDS. [facility] frooly, [facility]. provides no warranty or guarantee of the accuracy or completeness of information in this document.
[2025-03-12 06:46] LABS: Internal QC Validated? YES +Cl - CLEAR BKGD; Pregnancy, Urine Negative Negative; Record Kit Lot#,Urine Preg 0000980607
[2025-03-12] MEDS: Lactated Ringers 1,000 ML 15 ML IV (06:56)
--- NOTE | 2025-03-12 07:18 | PCM.PRE.AN2 ---
ASA Classification* ASA Classification ASA Classification: 1 Assessment & Plan Anesthesia* Anesthesia Assessment Anesthesia Assessment: Discussed sedation and/or anesthesia options, risks, benefits, and alternatives with patient/parents/legal guardian/POA. Questions invited. The patient/parents/legal guardian/POA seems to understand and agrees to proceed with anesthesia plan. Reviewed the physical assessment, medical history, allergy history and patient home medications list prior to surgery/procedure/anesthetic and documented any changes. Performed airway and anesthesia risk assessments. 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 When Was Last Pacemaker Check QUESTION #4 FULL TEXT: You/Your Family Experience fever (hyperthermia) with Anesthesia Last Oral Intake Last Oral intake: Last Oral Intake NPO since 23:00 03/12/25 06:44 Meds taken in AM with sips of No 03/12/25 06:44 water? Meds patient instructed to take am of surgery PONV PONV - endless track vehicle supervisor: PONV - endless track vehicle supervisor Female Yes 03/05/25 15:11 HX of Motion Sickness No 03/05/25 15:11 HX of N/V After Surgery No 03/05/25 15:11 Non-Smoker Yes 03/05/25 15:11 Duration of Surgery greater No 03/05/25 15:11 than 60 minutes Number of Risk Factors 2 03/05/25 15:11 PONV Score Moderate Risk 03/05/25 15:11 Height & Weight Height & Weight: Anesthesia: Height & Weight Height 5 ft 2 in 03/12/25 06:44 Weight: 82.2 kg 03/12/25 06:44 Body Mass Index (BMI) 33.1 03/12/25 06:44 Respiratory Assessment Respiratory Assessment - endless track vehicle supervisor: Respiratory Tract Infection Hx - endless track vehicle supervisor Hx Respiratory Tract Infection No 03/05/25 15:11 STOP Sleep Apnea STOP Sleep Apnea - endless track vehicle supervisor: STOP Sleep Apnea - endless track vehicle supervisor Hx Hypertension No 03/05/25 15:11 Hx Sleep Apnea No 03/05/25 15:11 CPAP BIPAP Do you snore loudly (louder No 03/05/25 15:11 than talking or can be heard Do you often feel tired/ No 03/05/25 15:11 fatigued/ sleepy during daytime? Has anyone observed you stop No 03/05/25 15:11 breathing during sleep? STOP Results Negative 03/05/25 15:11 QUESTION #5 FULL TEXT : Do you snore loudly (louder than talking or can be heard through closed doors)? 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 Specify any problems Hx of Preganancy in last 3 No 03/05/25 15:11 Months Nurse Filling Out Transfusion DSCHRIBER 03/05/25 15:11 & Questions: Date: 03/05/25 03/05/25 15:11 Time: 15:12 03/05/25 15:11 Patient unable to answer at this time (ie. 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: /Reproductive Hx- endless track vehicle supervisor Hx Now No 03/05/25 15:11 Gestational Age (in weeks): EDC: Hx Hx Para Hx Section SAB No 03/05/25 15:11 Active Medications Active Medications: Current Medications Generic Name Dose Route Start Last Admin Trade Name Freq PRN Reason Stop Dose Admin Lactated Ringer's 1,000 mls @ 15 mls/hr 03/12/25 06:30 03/12/25 06:56 IV 15 mls/hr .Q48H DESMOND Administration PFSH Medical History Wears contact lenses Back pain Migraine headache History of diverticulitis Non-smoker Cardiology follow-up encounter History of echocardiogram Home Medications Medication Instructions Recorded Last Taken Type multivitamin (Daily Multi-Vitamin 1 tab PO DAILY 03/05/25 03/11/25 History tablet) ubrogepant 100 mg tablet (Ubrelvy) 100 mg PO DAILY PRN PRN migraine 03/05/25 Unknown History headache Allergy/AdvReac Type Severity Reaction Status Date / Time cefuroxime (From Ceftin) Allergy Intermediate Vomiting Verified 03/12/25 06:43 Penicillins Allergy Intermediate Hives Verified 03/12/25 06:43 red dye AdvReac Intermediate Vomiting Verified 03/12/25 06:43 Surgical History Hx of colonoscopy History of tonsillectomy History of Social History Smoking Status: Never smoker Review of Systems (Anesthesia) ROS Narrative System reviewed and no additional complaints, except as documented.
--- NOTE | 2025-03-12 07:30 | POL_PTH ---
PATIENT: SOUMYA MARCH [place] [facility] [place][id number] AGE/SX: 39/F ROOM: RE03/12/[address]: Dr. Sil Suarez DO : 1985 BED: DIS: 03/12/2025 SPEC #: [id number] RECD: 03/12/25 09:58 STATUS: RORO REAmbrocio #: [id number] KARLA: 03/12/25 07:[address]: Sil Suarez DEPT: SURGICAL PATHOLOGY RECD BY: Daniel Harden ENTERED: 03/12/25 11:07 SP TYPE: Polyp OTHR DR: Dr. Frantz Benson DO Tissues: A - POLYP Procedures: Surgery Specimen Level IV HEADER OPERATION: Hysteroscopy, polypectomy PRE-OP DIAGNOSIS: Uterine polyp TISSUE SUBMITTED: A- Endometrial polyp MICROSCOPIC DIAGNOSIS A. Endometrium, curettage/polypectomy: - Fragments of proliferative endometrium. - A polypoid configuration is not identified. MICROSCOPIC DESCRIPTION Slides are reviewed. GROSS DESCRIPTION A. Received in formalin labeled with the patient's name and date of . Designated as " endometrial polyp" is a 1.5 x 1.4 x 0.2 cm aggregate of parker-pink to red tissue fragments. Entirely submitted in 1 cassette. RI 03/12/2025 CPT:48191
--- NOTE | 2025-03-12 07:30 | PCM.HP.OB ---
HPI - General General Date of Admission: 03/12/25 Date of Service: 03/12/25 Chief Complaint: polyp HPI Narrative SOUMYA MARCH, is a 39 F who presents for scheduled polypectomy. [facility] Medical History Wears contact lenses Back pain Migraine headache History of diverticulitis Non-smoker Cardiology follow-up encounter History of echocardiogram Home Medications Medication Instructions Recorded Last Taken Type multivitamin (Daily Multi-Vitamin 1 tab PO DAILY 03/05/25 03/11/25 History tablet) ubrogepant 100 mg tablet (Ubrelvy) 100 mg PO DAILY PRN PRN migraine 03/05/25 Unknown History headache Allergy/AdvReac Type Severity Reaction Status Date / Time cefuroxime (From Ceftin) Allergy Intermediate Vomiting Verified 03/12/25 06:43 Penicillins Allergy Intermediate Hives Verified 03/12/25 06:43 red dye AdvReac Intermediate Vomiting Verified 03/12/25 06:43 Surgical History Hx of colonoscopy History of tonsillectomy History of Social History Smoking Status: Never smoker Vital Signs Vital Signs Vital Signs: 03/12/25 06:44 03/12/25 06:44 03/12/25 07:21 Temperature 97.0 F L 97.0 F L Temperature Source Temporal Pulse Rate 72 72 Respiratory Rate 18 18 Respiratory Pattern Normal Blood Pressure 106/67 106/67 Blood Pressure Mean 80 Blood Pressure Source Monitor Blood Pressure Position Semi-Fowlers Blood Pressure Location Left Arm Pulse Ox 100 100 Oxygen Delivery Method Room Air Room Air Weight Weight: 181 lb 3.52 oz Body Mass Index (BMI) 33.1 Physical Exam Const alert and no apparent distress General Appearance: comfortable HEENT normocephalic Resp normal respiratory effort Extremity normal to inspection Assessment & Plan (1) Uterine polyp: PLAN: Patient with polyp on SIS and ALICE desires hysteroscopic removal prior to embryo transfer. Discussed r/b/a hysteroscopy with removal of polyp. Patient desires to proceed.
[2025-03-12] MEDS: Midazolam 2 MG/2 ML Syringe IV (07:49)
[2025-03-12] MEDS: fentaNYL 100 MCG/2 ML Ampul IV (08:05)
[2025-03-12] MEDS: Lidocaine 1% /Epi 1:100 (20ml) 20 ML Vial (08:11)
[2025-03-12] MEDS: Ketorolac 30 MG/ML Syringe IV (08:18)
--- NOTE | 2025-03-12 08:20 | PCM.DC ---
Discharge Instructions DC O2, CPAP, BIPAP needs Home O2 Discharge instructions: No Dressing / Incision Discharge Activity: May Drive (once you are more than 24 hours out from surgery) and May Shower (once you are more than 24 hours out from surgery) May resume sexual activity in: 1 week (nothing in the vagina and no soaking in water for 1 week) Weight Bearing Status: Weight bearing as tolerated Dressing / Incision Call your doctor if you observe: Fever of 101 or Higher, Inability to urinate, Inability to have a bowel movement, Using more than 1 pad per hour, Shortness of breath, Dizziness, Swelling in the ankles, Chest pain, Increased palpitations (irregular heartbeat), Calf discomfort and Uncontrolled pain Follow Up Care Please Follow Up With: Sil Suarez DO When: 1 week post op Test Results: Test results from this visit will be discussed in further detail at your follow-up appointment, if applicable. There was 1 small polyp on the posterior aspect of your uterus. This polyp was removed. The polyp was sent to pathology and the results will be available in about 1-2 weeks. Discharge Plan Admission Primary Reason for Your Visit: polypectomy Attending Provider: Sil Suarez Primary Care Provider: Frantz Benson Instructions Print Language: Korean Discharge Orders/Prescriptions Prescriptions: Continued Ubrelvy 100 mg tablet 100 mg PO DAILY PRN PRN (Reason: migraine headache) multivitamin [Daily Multi-Vitamin] Tablet 1 tab PO DAILY Disposition Disposition (needs filled in before D/C Order can be placed): Home, Self Care
--- NOTE | 2025-03-12 08:22 | PCM.OPRPT ---
Operative Report (Standard) Operative Information Date of Procedure: 03/12/25 Pre-Operative Diagnosis: Endometrial polyp Post-Operative Diagnosis: As above Surgery/Procedure Performed: Hysteroscopy polypectomy hospitality specialist: No Type of Anesthesia: MAC RN Documented Start/Stop Times: Operation Date: 03/12/25 07:30 Case Time Into Pre-Op 03/12/25 06:23 Out of Pre-Op 03/12/25 07:30 Anesthesia Start 03/12/25 07:47 Into Room 03/12/25 07:47 Procedure Start 03/12/25 08:05 Procedure Start Time: 08:05 Procedure Stop Time: 08:15 Select all DRAINS/GRAFTS/IMPLANTS that apply: None Estimated Blood Loss: < 10 mL Fluids Replaced: 450 mL fluid deficit Specimen collected: Yes Description of specimen(s) removed: Endometrial polyp Description of surgery: The patient was taken to the operating room where MAC anesthesia was induced and found to be adequate. She was prepped and draped in the dorsal lithotomy position using yellowfin stirrups. A weighted speculum was placed in the vagina to expose the cervix. The anterior lip of the cervix was grasped with a single-tooth tenaculum. The cervix was serially dilated to accommodate the Symphion hysteroscope. The Symphion hysteroscope was advanced into the uterus and distended with normal saline. Bilateral tubal ostia were visualized. There was 1 small posterior polyp noted. There were no other lesions noted. The cavity was normal-appearing. The endometrium was thin appearing. The resection device was used to resect the 1 endometrial polyp completely. Pictures were taken. The hysteroscope was then removed. All instruments were removed from the vagina. A vaginal sweep was performed. Instrument sponge counts were correct. The patient was taken to the cover room in stable condition. Surgical Findings: 1 small posterior endometrial polyp and uterine cavity otherwise normal appearing Complications Complications: No Admit VTE Documentation VTE Present on Admission: No VTE Mechan Device Prophylaxis: SCD's
--- NOTE | 2025-03-12 08:30 | PCM.POST.ANE ---
Anesthesia: Postop Eval I Current Vital Signs Temperature: 97.1 F Pulse Rate: 78 Blood Pressure: 88/54 Respiratory Rate: 16 Pulse Ox: 94 Oxygen Delivery Method: Room Air Assessment Airway patent: Yes Spontaneous unlabored respirations: Yes Mental status: Calm and Asleep nausea: No Vomiting: No Anesthesia Complication: No Fluid Hydration Crystalloid volume administer (ml): 600 Total IV fluid infused: 600 Progress Note Anesthesia document: Postop Eval 1 completed: Yes
--- NOTE | 2025-03-12 14:31 | POSTOPAN2_ITS ---
Anesthesia Postop Eval I Sum Postop Eval Completion status Anesthesia document: Postop Eval 1 completed: Yes Anesthesia Postop Eval I Summary Anesthesia Postop Eval I Summary: Anesthesia Postop Eval I: Assessment Summary Airway patent Yes 03/12/25 08:31 DENTAL [email or web address] Spontaneous unlabored Yes 03/12/25 08:31 DENTAL HYGIENIST.[email or web address] respirations Mental status Calm,Asleep 03/12/25 08:31 DENTAL HYGIENIST.GDOTT nausea No 03/12/25 08:31 DENTAL HYGIENIST.GDOTT Vomiting No 03/12/25 08:31 DENTAL HYGIENIST.GDOTT Anesthesia Postop Eval I: Fluid Summary Crystalloid volume administer 600 03/12/25 08:31 DENTAL HYGIENIST.GDOTT (ml) Colloids volume administered ( ml) Blood Product volume administered (ml) Total IV fluid infused 600 03/12/25 08:31 DENTAL HYGIENIST.GDOTT Anesthesia Postop Eval I: Summary Notes Anesthesia Complication No 03/12/25 08:31 DENTAL HYGIENIST.GDOTT Anesthesia Complication Comment: Post-operative progress note Anesthesia: Postop Eval II Evaluation Mental status: Awake and Calm Pain Level: 1 nausea: No Vomiting: No Complications Anesthesia Complication: No
--- NOTE | 2025-03-12 14:31 | PCM.POSTANE2 ---
Anesthesia Postop Eval I Sum Postop Eval Completion status Anesthesia document: Postop Eval 1 completed: Yes Anesthesia Postop Eval I Summary Anesthesia Postop Eval I Summary: Anesthesia Postop Eval I: Assessment Summary Airway patent Yes 03/12/25 08:31 LABORER [email or web address] Spontaneous unlabored Yes 03/12/25 08:31 LABORER VINEYARD.[email or web address] respirations Mental status Calm,Asleep 03/12/25 08:31 LABORER VINEYARD.GDOTT nausea No 03/12/25 08:31 LABORER VINEYARD.GDOTT Vomiting No 03/12/25 08:31 LABORER VINEYARD.GDOTT Anesthesia Postop Eval I: Fluid Summary Crystalloid volume administer 600 03/12/25 08:31 LABORER VINEYARD.GDOTT (ml) Colloids volume administered ( ml) Blood Product volume administered (ml) Total IV fluid infused 600 03/12/25 08:31 LABORER VINEYARD.GDOTT Anesthesia Postop Eval I: Summary Notes Anesthesia Complication No 03/12/25 08:31 LABORER VINEYARD.GDOTT Anesthesia Complication Comment: Post-operative progress note Anesthesia: Postop Eval II Evaluation Mental status: Awake and Calm Pain Level: 1 nausea: No Vomiting: No Complications Anesthesia Complication: No
== END 2025-03-12 09:26 | disposition home or self-care (01) ==
LOC: SDC 06:18 → AC 06:19
PROVIDERS: Anesthesiology; PCP Student in an Organized Health Care Education/Training Program; Referring Provider Obstetrics & Gynecology; Visit Provider Obstetrics & Gynecology
PROC: 0UB98ZZ Excision of Uterus, Via Natural or Artificial Opening Endoscopic (ICD-10-PCS; CPT 58558; principal; 2025-03-12 07:15)
DX: N85.8 Other specified noninflammatory disorders of uterus (principal)
CPT/HCPCS: 58558; 00952; 81025; 88305; J2405